=== PATIENT | male | born 1945 | race Caucasian/White ===

== ENCOUNTER 2020-04-20 14:52 | Outpatient (REF) | payer MEDICARE, SELFPAY ==
--- NOTE | 2020-04-20 | US_ITS ---
EXAMINATION: US VENOUS ULTRASOUND WITH DOPPLER LOWER EXTREMITY, RIGHT CLINICAL INFORMATION: Pain and swelling COMPARISON: Previous exams most recent July 2019 TECHNIQUE: Ultrasound of the deep veins is performed from the hip to the calf with compression sonography and color and pulse Doppler assessment. Spectral analysis with color-flow imaging is performed. FINDINGS: There is normal venous compression and respiratory variation and augmented flow. The visualized common femoral vein, superficial femoral vein, profunda femoral vein, popliteal vein, and the trifurcation region shows no evidence of deep venous thrombosis. There is echogenic material seen in the right greater saphenous vein post venaseal procedure. This is 8 cm from the saphenofemoral junction. There is a small 1.1 x 0.6 x 1.4 cm popliteal fossa cyst IMPRESSION: No DVT demonstrated in the right lower extremity.
== END 2020-04-20 14:53 | disposition home or self-care (01) ==
LOC: HO.US 14:52
PROVIDERS: Visit Provider Surgery Vascular Surgery
DX: M79.661 Pain in right lower leg (principal)
CPT/HCPCS: 93971

== ENCOUNTER → 2020-04-21 13:30 | Outpatient (BNVA) | payer MEDICARE, SELFPAY | PROVIDERS: PCP Internal Medicine; Visit Provider Surgery Vascular Surgery | DX: L03.115 Cellulitis of right lower limb (principal) | CPT/HCPCS: 99213 ==

== ENCOUNTER 2020-05-11 06:20 | Day surgery (SDC) | payer MEDICARE, SELFPAY ==
[2020-05-06 09:11] VITALS: BMI 36.3
--- NOTE | 2020-05-06 15:26 | P.CONAN_ITS ---
Documented by User: Rachelle Coughlin 05/06/20 15:30 HPI - Anesthesia Eval Consult details Narrative: 74yo M for Colonoscopy Eliquis for afib PMFSH Past Medical History Medical History Arrhythmia BPH (benign prostatic hyperplasia) Diabetes Elevated cholesterol Hypertension Hypogonadism Retention of fluid Surgical History Surgical History Deviated septum H/O colonoscopy History of hydrocelectomy History of left knee replacement Hx of cardiac catheterization Hx of transurethral resection of prostate Social History Social History Smoking Status: Never smoker Advance Directives Information Provided: No Meds Allergies Allergy/AdvReac Type Severity Reaction Status Date / Time cephalexin [Keflex] Allergy Intermediate hives Verified 05/06/20 09:18 levofloxacin Allergy Intermediate Hives Verified 05/06/20 09:18 [facility] AdvReac Intermediate Fatigued Verified 05/06/20 09:18 Home Medications Medication Instructions Recorded Confirmed Type apixaban 5 mg tablet 5 mg PO BID 04/21/20 05/06/20 History furosemide 40 mg tablet 40 mg PO DAILY 04/21/20 05/06/20 History lisinopril 20 mg tablet 20 mg PO DAILY 04/21/20 05/06/20 History metformin 1,000 mg tablet 1,000 mg PO BID 04/21/20 05/06/20 History metoprolol tartrate 25 mg tablet 25 mg PO BID 04/21/20 05/06/20 History tamsulosin 0.4 mg capsule 0.4 mg PO DAILY 04/21/20 05/06/20 History canagliflozin [Invokana] 100 mg PO DAILY 05/06/20 05/06/20 History simvastatin 20 mg PO BEDTIME 05/06/20 05/06/20 History Exam Exam Date and Time: May 06, 2020 1526 Height,Weight and Vital Signs: Height 5 ft 10 in Weight 114.759 kg Pertinent Lab Results Pertinent Lab Results: Laboratory Tests 03/23/20 03/23/20 08:38 08:38 WBC 8.2 Hgb 13.3 L Hct 41.1 L Plt Count 135 L Sodium 139 Potassium 4.6 Chloride 106 BUN 18 H Creatinine 1.04 Narrative Narrative: EKG 12/2019: afib @ 83, otherwise unremarkable Echo: Low nml EF 50-55%, no signif valve path, otherwise unremarkable Assessment and Plan Assessment Anesthesia Assessment: Chart Reviewed Documented by User: Heladio Guerra 05/11/20 07:37 [facility] Past Medical History Medical History Arrhythmia BPH (benign prostatic hyperplasia) Diabetes Elevated cholesterol Hypertension Hypogonadism Retention of fluid Surgical History Surgical History Deviated septum H/O colonoscopy History of hydrocelectomy History of left knee replacement Hx of cardiac catheterization Hx of transurethral resection of prostate Social History Social History Smoking Status: Never smoker Advance Directives Information Provided: No Meds Allergies Allergy/AdvReac Type Severity Reaction Status Date / Time cephalexin [Keflex] Allergy Intermediate hives Verified 05/06/20 09:18 levofloxacin Allergy Intermediate Hives Verified 05/06/20 09:18 cetirizine [From [facility]] AdvReac Intermediate Fatigued Verified 05/06/20 09:18 Home Medications Medication Instructions Recorded Confirmed Type apixaban 5 mg tablet 5 mg PO BID 04/21/20 05/06/20 History furosemide 40 mg tablet 40 mg PO DAILY 04/21/20 05/06/20 History lisinopril 20 mg tablet 20 mg PO DAILY 04/21/20 05/06/20 History metformin 1,000 mg tablet 1,000 mg PO BID 04/21/20 05/06/20 History metoprolol tartrate 25 mg tablet 25 mg PO BID 04/21/20 05/06/20 History tamsulosin 0.4 mg capsule 0.4 mg PO DAILY 04/21/20 05/06/20 History canagliflozin [Invokana] 100 mg PO DAILY 05/06/20 05/06/20 History simvastatin 20 mg PO BEDTIME 05/06/20 05/06/20 History Exam Airway Mallampati Class: II TM Dist: >3cm Neck ROM: Full Partial: Upper and Lower Heart: [id number] Lungs: cta b/l Assessment and Plan Assessment Anesthesia Assessment: Anesthesia Plan Discussed, PAT Visit and Chart Reviewed Final Anesthetic Review NPO: Yes ASA Class: III Final Preanesthetic Review: No Changes in Pt Med Stat, Meds/Allgs Chart Reviewed, Consent Obtained/Reviewed and Anes Risks/Benef Reviewed Patient Risk: Low Procedure Risk: Low Anesthetic Plan Anesthetic Plan: MAC: Disposition: Standard PACU
[2020-05-11 06:51] VITALS: BP 146/79; PULSE 99; RESP 18; TEMP 36.3; O2SAT 97
[2020-05-11 06:57] LABS: Glucose, Whole Blood 120 mg/dL (60-115)
[2020-05-11] MEDS: Lactated Ringers 1,000 ML 100 ML IVCONT (07:05)
[2020-05-11 08:52] VITALS: BP 133/69; PULSE 93; RESP 20; TEMP 36.1; O2SAT 99
--- NOTE | 2020-05-11 08:53 | PM.OP ---
Brief Operative Note Date of procedure: 05/11/20 Pre-op diagnosis: Screening Post-op diagnosis: other (Colon polyps, Diverticulosis, Poor prep) Procedure: Colonoscopy to cecum with bx and removal of polyp, snare polypectomy, and placement of 2 resolution clips on ascending colon polypectomy site Surgeon: Isma Yepez Anesthesia: MAC Estimated blood loss (mL): 3.0 Pathology: other (A. Cecal polyp B. Proximal ascending colon polyp) Condition: stable Disposition: PACU
[2020-05-11 09:06] VITALS: BP 143/79; PULSE 90; RESP 18; O2SAT 97
[2020-05-11 09:19] VITALS: BP 153/88; PULSE 78; RESP 18; O2SAT 97
--- NOTE | 2020-05-11 09:22 | OP_ITS ---
SURGEON: Isma Yepez MD INDICATIONS: Full consent has been obtained from him for this, including risks of bleeding and perforation. PREOPERATIVE DIAGNOSIS: POSTOPERATIVE DIAGNOSIS: PROCEDURE PERFORMED: ESTIMATED BLOOD LOSS: COMPLICATIONS: ANESTHESIA: Medication used, monitored anesthesia care. ASSISTANTS: SPECIMENS: PREOPERATIVE DIAGNOSES: Colorectal cancer screening and personal history of tubular adenoma of the colon. POSTOPERATIVE DIAGNOSES: Colorectal cancer screening and personal history of tubular adenoma of the colon. colon polyp, sigmoid diverticulosis, internal hemorrhoids. PROCEDURES PERFORMED: Colonoscopy to the cecum with snare polypectomy, biopsy removal of polyp, and placement of 2 resolution clips. DESCRIPTION OF PROCEDURE: The patient was placed in the left lateral decubitus position. The digital rectal exam revealed no abnormalities. The Squee video pediatric colonoscope was entered into the rectum and advanced to the cecum. Advancement to the cecum was difficult due to a relatively poor prep as well as requiring abdominal wall pressure. However, once in the cecum, I was able to irrigate and suction with ultimately good visualization of the cecum. There was a small approximately 3-mm polyp in the cecum, which was biopsied and completely removed with cold biopsy forceps. The remainder of the cecum appeared normal. The scope was then slowly withdrawn assessing all mucosal surfaces carefully. Preparation throughout the colon was limited in various spots due to a lot of liquid and solid stool. However, in the very proximal ascending colon on a fold was an approximately 1.5 cm polyp, which was snared in piecemeal fashion. The entire polyp was removed. The polypectomy site appeared clean, without any sign of residual polyp nor bleeding, I did place 2 resolution clips on the polypectomy site due to the fact that he has to go back on his Eliquis. There was good deployment and good hemostasis. The 2 portions of the polyp I removed were visualized in the cecum, one was recovered with the retrieval net and the other one was not able to be found again. There was a fair amount of liquid stool in the cecum at that point. With the polyp in the retrieval net, the scope was then slowly withdrawn assessing all mucosal surfaces as carefully as possible, although again this was limited due to the prep. I did not visualize any other polyps, colitis, nor angiodysplasia, but there is a mild amount of sigmoid diverticulosis. In the rectum, scope was retroflexed visualizing minimal internal hemorrhoids, but no other pathology. The rectal mucosa appeared normal. The scope was straightened out and withdrawn from the patient. He tolerated the procedure well and was returned to the recovery area in stable condition. IMPRESSION: 1. Small cecal polyp, status post biopsy and removal. 2. Larger ascending colon polyp, status post snare polypectomy and placement of 2 resolution clips. 3. Diverticulosis. 4. Limited prep. PLAN: The results of the pathology will be checked. I would recommend a repeat colonoscopy within 1 year with a 2-day prep. He was advised to resume his Eliquis tomorrow and to not use any aspirin and NSAIDs for least 1 week. This has been discussed with his . MD KENYATTA Ramirez/NICO / [id number]
--- NOTE | 2020-05-11 09:27 | HO.POSTANES ---
Post Anesthesia Evaluation Post Anesthesia Evaluation Vital Signs: Vital Signs Temp Pulse Resp BP Pulse Ox 05/11/20 09:19 78 18 153/88 H 97 05/11/20 09:06 90 18 143/79 H 97 05/11/20 08:52 96.9 F 93 20 133/69 99 05/11/20 06:51 97.4 F 99 18 146/79 H 97 Anesthesia: Monitored Mental Status: Awake Pain Control: Satisfactory Nausea/Vomiting: None Hydration: Adequate Anesthesia-Related Issues: No Anes. Related Issues
== END 2020-05-11 09:53 | disposition home or self-care (01) ==
PROVIDERS: PCP Internal Medicine; Visit Provider Internal Medicine
PROC: 0DJD8ZZ Inspection of Lower Intestinal Tract, Via Natural or Artificial Opening Endoscopic (ICD-10-PCS; CPT 45378; principal; 2020-05-11 07:30)
DX: Z12.11 Encounter for screening for malignant neoplasm of colon (principal); Z86.010 Personal history of colon polyps; Z80.0 Family history of malignant neoplasm of digestive organs; D12.0 Benign neoplasm of cecum; D12.2 Benign neoplasm of ascending colon; K57.30 Diverticulosis of large intestine without perforation or abscess without bleeding; K64.8 Other hemorrhoids; I48.91 Unspecified atrial fibrillation; I10 Essential (primary) hypertension; E11.9 Type 2 diabetes mellitus without complications; Z79.84 Long term (current) use of oral hypoglycemic drugs; Z79.01 Long term (current) use of anticoagulants; Z79.82 Long term (current) use of aspirin; Z79.899 Other long term (current) drug therapy; Z96.652 Presence of left artificial knee joint
CPT/HCPCS: 45385; 45380; 82947; 88305

== ENCOUNTER → 2020-05-12 15:10 | Outpatient (BNVA) | payer MEDICARE, SELFPAY | PROVIDERS: PCP Internal Medicine; Visit Provider Surgery Vascular Surgery | DX: L03.115 Cellulitis of right lower limb (principal) | CPT/HCPCS: 99212 ==

== ENCOUNTER → 2020-06-11 12:42 | Outpatient (BNVA) | payer MEDICARE, SELFPAY | PROVIDERS: PCP Internal Medicine; Referring Provider Internal Medicine; Visit Provider Internal Medicine | DX: I48.19 Other persistent atrial fibrillation (principal); I10 Essential (primary) hypertension; E11.8 Type 2 diabetes mellitus with unspecified complications; Z98.890 Other specified postprocedural states | CPT/HCPCS: 99212 ==

== ENCOUNTER 2020-06-22 07:55 | Outpatient (REF) | payer MEDICARE, SELFPAY ==
[2020-06-22 08:41] LABS: Estimated Average Glucose 128 mg/dL; Hemoglobin A1C 149.0681 umol/L; Hemoglobin A1c % 6.1 %
[2020-06-22 08:46] LABS: Hematocrit 41.3 % (42-52); Hemoglobin 13.6 g/dl (14.0-18.0); Mean Corpuscular HGB Conc 32.9 g/dl (31.0-36.0); Mean Corpuscular Hemoglobin 29.8 pg (27.0-33.0); Mean Corpuscular Volume 90.6 fL (80-98); Platelet Count 123 X10*3/uL (160-400); Red Blood Count 4.56 X10*6/uL (4.60-5.80); White Blood Count 6.9 X10*3/uL (4.8-10.8)
[2020-06-22 08:55] LABS: Alanine Aminotransferase 21 U/L (0-40); Anion Gap 13 (12-20); Aspartate Amino Transferase 16 U/L (5-37); Blood Urea Nitrogen 19 mg/dL (9-16); Calcium 8.8 mg/dL (8.4-10.2); Carbon Dioxide 24 mmol/L (22-29); Chloride 105 mmol/L (96-108); Cholesterol 116 mg/dL; Estimated Glomerular Filt Rate 58; Glucose Fasting 131 mg/dL (60-99); HDL Cholesterol 25 mg/dL; Iron 112 mcg/dL (45-160); LDL Cholesterol Calculated 74 mg/dl; Percent Iron Saturation 45 % (15-50); Potassium 4.3 mmol/l (3.3-5.1); Sodium 138 mmol/L (135-145); Total Iron Binding Capacity 247 mcg/dL (228-428); Triglycerides 87 mg/dL; Unsaturated Iron Binding 135 ug/dL
[2020-06-22 09:15] LABS: Ferritin 125 ng/mL (20-250)
== END 2020-06-22 07:56 | disposition home or self-care (01) ==
LOC: HO.LAB 07:55
PROVIDERS: Visit Provider Internal Medicine
DX: E11.9 Type 2 diabetes mellitus without complications (principal); I10 Essential (primary) hypertension; E78.5 Hyperlipidemia, unspecified; I48.91 Unspecified atrial fibrillation; D50.9 Iron deficiency anemia, unspecified
CPT/HCPCS: 36415; 80048; 80061; 82728; 83036; 83540; 84450; 84460; 85027

== ENCOUNTER 2020-10-05 07:48 | Outpatient (REF) | payer MEDICARE, SELFPAY ==
[2020-10-05 11:47] LABS: Hemoglobin 13.7 g/dl (14.0-18.0); Imm Gran Abs Auto 0.04 X10*3/uL (0.00-0.03); Imm Gran Pct Auto 0.5 % (0.0-0.4); MANUAL DIFF FLAG SCAN; SCAN SMEAR FLAG 1
[2020-10-05 11:50] LABS: Basophils Percent Auto 0.4 % (0-2); Eosinophils Absolute Auto 0.2 X10*3/uL (0.0-0.4); Hematocrit 43.3 % (42-52); Lymphocytes Absolute Auto 1.5 X10*3/uL (1.2-4.9); Lymphocytes Percent Auto 18.4 % (20-40); Mean Corpuscular HGB Conc 31.6 g/dl (31.0-36.0); Mean Corpuscular Hemoglobin 28.5 pg (27.0-33.0); Monocytes Absolute Auto 0.6 X10*3/uL (0.1-1.2); Neutrophils Absolute Auto 5.7 X10*3/uL (2.0-8.3); Neutrophils Percent Auto 70.7 % (45-73); Platelet Count 141 X10*3/uL (160-400); Red Blood Count 4.81 X10*6/uL (4.60-5.80); Red Cell Distribution Width 19.1 % (11.0-16.0); White Blood Count 8.1 X10*3/uL (4.8-10.8)
[2020-10-05 11:54] LABS: PLT ABN DIST 1
[2020-10-05 12:26] LABS: Alanine Aminotransferase 31 U/L (0-40); Albumin Level 3.9 g/dL (3.5-5.0); Alkaline Phosphatase 62 U/L (39-117); Anion Gap 15 (12-20); Aspartate Amino Transferase 15 U/L (5-37); Bilirubin Total 0.6 mg/dL (0.0-1.0); Blood Urea Nitrogen 18 mg/dL (9-16); Calcium 8.8 mg/dL (8.4-10.2); Carbon Dioxide 22 mmol/L (22-29); Chloride 107 mmol/L (96-108); Cholesterol 118 mg/dL; Estimated Glomerular Filt Rate > 60; Glucose Fasting 151 mg/dL (60-99); HDL Cholesterol 30 mg/dL; Iron 100 mcg/dL (45-160); LDL Cholesterol Calculated 68 mg/dl; Percent Iron Saturation 41 % (15-50); Potassium 4.6 mmol/L (3.3-5.1); Sodium 139 mmol/L (135-145); Total Iron Binding Capacity 244 mcg/dL (228-428); Total Protein 6.1 g/dL (6.5-8.0); Triglycerides 102 mg/dL; Unsaturated Iron Binding 144 ug/dL
[2020-10-05 12:30] LABS: Estimated Average Glucose 134 mg/dL; Hemoglobin A1c % 6.3 %
[2020-10-05 12:38] LABS: Creatinine Urine 121.42 mg/dL; Microalbum/Creatinine Ratio Ur 4.9 ug/mg cr
[2020-10-05 13:15] LABS: Ferritin 150 ng/mL (20-250)
== END 2020-10-05 07:49 | disposition home or self-care (01) ==
LOC: HO.HMGCLDS 07:48
PROVIDERS: PCP Internal Medicine; Visit Provider Internal Medicine
DX: E11.8 Type 2 diabetes mellitus with unspecified complications (principal); E78.5 Hyperlipidemia, unspecified; I10 Essential (primary) hypertension; I48.19 Other persistent atrial fibrillation
CPT/HCPCS: 36415; 80053; 80061; 82043; 82728; 83036; 83540; 85025

== ENCOUNTER → 2020-12-04 09:05 | Outpatient (REF) | payer MEDICARE, SELFPAY ==
--- NOTE | 2020-12-04 09:08 | ECG_ITS ---
Hook-up date: 2020-12-04 10:41:00 Duration: 47:59:00 Test Indications: PAF Medications: [id number] QRS complexes 306 Ventricular ectopics which represent <1 % of total QRS comp. * Supraventricular ectopics which represent % of total QRS comp. * Paced QRS complexs which represent % of total QRS comp. VENTRICULAR ECTOPY 306 Isolated 0 Bigeminal Cycles 0 Couplets 0 Runs 0 Beats in Runs * Beats LONGEST at * BPM at :: -- * Beats FASTEST at * BPM at :: -- SUPRAVENTRICULAR ECTOPY * Isolated * Couplets * Runs * Beats in Runs * Beats LONGEST at * BPM at :: -- * Beats FASTEST at * BPM at :: -- HEART RATES 47 MIN at 00:11:07 2020-12-05 87 AVG 160 MAX at 07:59:45 2020-12-05 LONGEST RR 2.1440 secs at 04:25:06 2020-12-05 S-T LEVELS Channel 1 - 128 mm at 10:41:00 2020-12-04 - 128 mm at 10:41:00 2020-12-04 Channel 2 - 128 mm at 10:41:00 2020-12-04 - 128 mm at 10:41:00 2020-12-04 Channel 3 - 128 mm at 03:00:01 -- - 128 mm at 03:00:01 Underlying rhythm atrial fibrillation; Average rate 87/min; range 47-160/min; About 16% of the time, rate>100/min; Rare PVCs; Overall, reasonable rate control but with tendency for tachycardia; Patient did not report any symptoms in the diary Referred By: Brittany Rebolledo Overread By: BRITTANY REBOLLEDO
--- NOTE | 2020-12-04 09:08 | CA_ITS ---
Transthoracic Echocardiogram Patient (Last, First, Middle): Alireza Gabriel M Gender: Male Date of : 1945 Age: 75 Procedure Date: 12/04/2020 Procedure Type: Transthoracic Echocardiogram Location: OP Height: 180.34 cm Weight: 114.31 kg BSA: 2.33 m2 Heart Rate: bpm BP: 136 / 72 mmHg Livestock Inspector: MACKENZIE Referring MD: Delano Keller MD Symptoms: I48.19 - Other persistent atrial fibrillation Study Quality: Fair/contrast Conclusions: - Normal left ventricular size and systolic function. - The visually estimated ejection fraction is between 55-60%. - Diastolic function is indeterminate on the basis of available data. - The left atrium is mildly dilated. - There is mild thickening of the aortic valve. Findings Procedure Information Contrast agent, definity, is being given per protocol without apparent complications. Left Ventricle Normal left ventricular size and systolic function. There is mildly increased left ventricular wall thickness. The visually estimated ejection fraction is between 55-60%. There is no evidence of regional wall motion abnormalities. Diastolic function is indeterminate on the basis of available data. Right Ventricle Normal right ventricular cavity size and systolic function. Atria The left atrium is mildly dilated. The right atrium is normal in size. Aortic Valve There is a normal trileaflet aortic valve. There is mild thickening of the aortic valve. There is no aortic valve stenosis. There is no aortic valve regurgitation. Mitral Valve Normal mitral valve structure and function. There is trace mitral valve regurgitation. There is no mitral valve stenosis. Pulmonic Valve Normal pulmonic valve structure and function. There is trace pulmonic valve regurgitation. Tricuspid Valve Normal tricuspid valve structure and function. There is trace tricuspid valve regurgitation. Normal right atrial pressure. There is no evidence of pulmonary hypertension. Great Vessels There is mild dilatation of the ascending aorta. Venous The inferior vena cava is normal in size and collapses greater than 50% with inspiration. Pericardium/Pleural There is no evidence of pericardial effusion. Prior Study Comparison Changes noted compared to prior study dated: 03/07/2019. EF is normal (55 60%) Measurements 2D Linear Measurements IVSd: 1.11 0.6-0.9/0.6-1.0 cm LVIDd: 4.88 3.9-5.3/4.2-5.9 cm LVIDd Index: 2.09 2.4-3.2/2.2-3.1 cm/m2 LVIDs: 3.11 2.0-3.6 cm LVPWd: 1.09 0.7-1.1 cm Ao Root: 3.60 2.1-3.5 cm LA Diam: 4.30 2.7-3.8/3.0-4.0 cm LAIDs Index: 1.85 1.5-2.3 cm/m2 LV Mass: 248.23 67-162/88-224 g LV Mass Index: 106.54 43-95/49-115 g/m2 LVOT Diam: 2.60 3.0+(-)1.3 cm 2D Systolic Function EF 4C: 56.40 >55% EF 2C: 54.80 >55% EF BiP: 56.70 >55% Aortic Valve AoV Pk Lance: 0.91 AoV Mn Lance: 0.60 AoV VTI: 0.16 AoV Pk Grad: 3.00 Aov Mn Grad: 2.00 ASHA Cont.VTI: 3.65 LVOT LVOT Pk Lance: 0.63 LVOT Mn Lance: 0.36 LVOT VTI: 0.11 LVOT Pk Grad: 2.00 LVOT Mn Grad: 1.00 LVOT Diam: 2.60 LVOT Area: 5.31 Tricuspid Valve TR Pk Lance: 2.00 TR Pk Grad: 16.00 RA Press: 3.00 RVSP: 19.00 Great Vessels Aorta Ao Root-2D: 3.60 2.0-3.7 cm Ao Asc: 3.60 2.1-3.4 cm Ao Arch: 3.20 Updated in Other Vendor System with Status of Final Marcin Lopez MD electronically signed on 12/06/2020 8:11:57 PM with status of Final
== END ==
LOC: HO.CARD 09:05
PROVIDERS: Visit Provider Internal Medicine
DX: I48.19 Other persistent atrial fibrillation (principal)
CPT/HCPCS: 93225; 93226; 93306; Q9957

== ENCOUNTER → 2020-12-21 08:38 | Outpatient (BNVA) | payer MEDICARE, SELFPAY | PROVIDERS: PCP Internal Medicine; Visit Provider Internal Medicine | DX: I48.19 Other persistent atrial fibrillation (principal); I10 Essential (primary) hypertension; E11.8 Type 2 diabetes mellitus with unspecified complications; Z98.890 Other specified postprocedural states | CPT/HCPCS: 93005; 99212 ==

== ENCOUNTER 2021-04-19 07:49 | Outpatient (REF) | payer MEDICARE, SELFPAY ==
[2021-04-19 11:36] LABS: Imm Gran Abs Auto 0.03 X10*3/uL (0.00-0.03); MANUAL DIFF FLAG SCAN; Monocytes Percent Auto 7.5 % (2-11); Red Cell Distribution Width 18.8 % (11.0-16.0); SCAN SMEAR FLAG 1
[2021-04-19 11:38] LABS: Basophils Percent Auto 0.3 % (0-2); Eosinophils Absolute Auto 0.3 X10*3/uL (0.0-0.4); Eosinophils Percent Auto 3.3 % (0-4); Hematocrit 41.1 % (42-52); Hemoglobin 13.4 g/dl (14.0-18.0); Imm Gran Pct Auto 0.3 % (0.0-0.4); Lymphocytes Absolute Auto 1.5 X10*3/uL (1.2-4.9); Lymphocytes Percent Auto 17.9 % (20-40); Mean Corpuscular HGB Conc 32.6 g/dl (31.0-36.0); Mean Platelet Volume 11.5 fL (9.4-12.4); Monocytes Absolute Auto 0.7 X10*3/uL (0.1-1.2); Neutrophils Absolute Auto 6.1 X10*3/uL (2.0-8.3); Neutrophils Percent Auto 70.7 % (45-73); Platelet Count 155 X10*3/uL (160-400); Red Blood Count 4.62 X10*6/uL (4.60-5.80); White Blood Count 8.6 X10*3/uL (4.8-10.8)
[2021-04-19 11:39] LABS: PLT ABN DIST 1
[2021-04-19 11:52] LABS: Estimated Average Glucose 183 mg/dL
[2021-04-19 12:07] LABS: Alanine Aminotransferase 57 U/L (0-40); Anion Gap 15 (12-20); Aspartate Amino Transferase 28 U/L (5-37); Blood Urea Nitrogen 18 mg/dL (9-16); Calcium 9.2 mg/dL (8.4-10.2); Carbon Dioxide 24 mmol/L (22-29); Chloride 105 mmol/L (96-108); Cholesterol 108 mg/dL; Estimated Glomerular Filt Rate 57; Glucose Fasting 168 mg/dL (60-99); HDL Cholesterol 28 mg/dL; LDL Cholesterol Calculated 63 mg/dl; Potassium 4.1 mmol/L (3.3-5.1); Sodium 140 mmol/L (135-145); Triglycerides 87 mg/dL
[2021-04-19 12:12] LABS: PSA,Total (Free>4and<10) 1.31 ng/mL (0.00-4.00); Vitamin D 25-OH Total 29.6 ng/mL (>30)
[2021-04-19 12:28] LABS: SLIDE REVIEW VERIFIED
== END 2021-04-19 07:50 | disposition home or self-care (01) ==
LOC: HO.HMGCLDS 07:49
PROVIDERS: PCP Internal Medicine; Visit Provider Internal Medicine
DX: Z12.5 Encounter for screening for malignant neoplasm of prostate (principal); E11.9 Type 2 diabetes mellitus without complications; E78.5 Hyperlipidemia, unspecified; I10 Essential (primary) hypertension; I48.19 Other persistent atrial fibrillation; N40.0 Benign prostatic hyperplasia without lower urinary tract symptoms; R97.20 Elevated prostate specific antigen [PSA]
CPT/HCPCS: 36415; 80048; 80061; 82306; 83036; 84153; 84450; 84460; 85025

== ENCOUNTER → 2021-06-08 08:32 | Outpatient (BNVA) | payer MEDICARE, SELFPAY | PROVIDERS: PCP Internal Medicine; Referring Provider Internal Medicine; Visit Provider Internal Medicine | DX: I48.19 Other persistent atrial fibrillation (principal); I10 Essential (primary) hypertension; E11.8 Type 2 diabetes mellitus with unspecified complications; Z98.890 Other specified postprocedural states | CPT/HCPCS: 99212 ==

== ENCOUNTER 2021-07-17 08:19 | Outpatient (REF) | payer MEDICARE, SELFPAY ==
[2021-07-17 11:16] LABS: MANUAL DIFF FLAG NO
[2021-07-17 11:23] LABS: Basophils Percent Auto 0.5 % (0-2); Eosinophils Absolute Auto 0.2 X10*3/uL (0.0-0.4); Eosinophils Percent Auto 1.8 % (0-4); Hematocrit 40.6 % (42.0-52.0); Hemoglobin 13.1 g/dl (14.0-18.0); Imm Gran Abs Auto 0.03 X10*3/uL (0.00-0.03); Imm Gran Pct Auto 0.3 % (0.0-0.4); Lymphocytes Absolute Auto 1.2 X10*3/uL (1.2-4.9); Lymphocytes Percent Auto 13.8 % (20-40); Mean Corpuscular HGB Conc 32.3 g/dl (31.0-36.0); Mean Corpuscular Hemoglobin 28.9 pg (27.0-33.0); Mean Corpuscular Volume 89.4 fL (80.0-98.0); Monocytes Absolute Auto 0.6 X10*3/uL (0.1-1.2); Monocytes Percent Auto 7.3 % (2-11); Neutrophils Absolute Auto 6.6 x10*3/uL (2.0-8.3); Neutrophils Percent Auto 76.3 % (45-73); Platelet Count 140 X10*3/uL (160-400); Red Blood Count 4.54 X10*6/uL (4.60-5.80); Red Cell Distribution Width 19.2 % (11.0-16.0); White Blood Count 8.7 X10*3/uL (4.8-10.8)
[2021-07-17 11:54] LABS: Alanine Aminotransferase 60 U/L (0-40); Anion Gap 12 (12-20); Aspartate Amino Transferase 32 U/L (5-37); Blood Urea Nitrogen 20 mg/dL (9-16); Calcium 9.3 mg/dL (8.4-10.2); Carbon Dioxide 22 mmol/L (22-29); Chloride 109 mmol/L (96-108); Cholesterol 113 mg/dL; Estimated Glomerular Filt Rate > 60; Glucose Fasting 188 mg/dL (60-99); HDL Cholesterol 31 mg/dL; Iron 114 mcg/dL (45-160); LDL Cholesterol Calculated 64 mg/dl; Percent Iron Saturation 44 % (15-50); Potassium 4.1 mmol/L (3.3-5.1); Sodium 139 mmol/L (135-145); Total Iron Binding Capacity 260 mcg/dL (228-428); Triglycerides 93 mg/dL; Unsaturated Iron Binding 146 ug/dL
[2021-07-17 11:56] LABS: Estimated Average Glucose 160 mg/dL; Hemoglobin A1c % 7.2 %
[2021-07-17 12:18] LABS: Vitamin D 25-OH Total 39.2 ng/mL (>30)
== END 2021-07-17 08:20 | disposition home or self-care (01) ==
LOC: HO.HMGCLDS 08:19
PROVIDERS: Visit Provider Internal Medicine
DX: D50.9 Iron deficiency anemia, unspecified (principal); E11.65 Type 2 diabetes mellitus with hyperglycemia; E55.9 Vitamin D deficiency, unspecified; I10 Essential (primary) hypertension
CPT/HCPCS: 36415; 80048; 80061; 82306; 83036; 83540; 84450; 84460; 85025

== ENCOUNTER → 2021-07-20 08:19 | Outpatient (REF) | payer MEDICARE, SELFPAY ==
--- NOTE | 2021-07-20 08:24 | ECG_ITS ---
Test Reason : E11.65 Blood Pressure : / mmHG Vent. Rate : 072 BPM Atrial Rate : 000 BPM P-R Int : 000 ms QRS Dur : 104 ms QT Int : 412 ms P-R-T Axes : 000 009 060 degrees QTc Int : 451 ms Atrial fibrillation Abnormal ECG When compared with ECG of 03-SEP-2015 07:25, Atrial fibrillation has replaced Sinus rhythm Referred By: Latoya Lopez Electronically Signed By:Marcin Lopez
== END ==
LOC: HO.CARD 08:19
PROVIDERS: PCP Internal Medicine; Visit Provider Internal Medicine
DX: I48.19 Other persistent atrial fibrillation (principal); I10 Essential (primary) hypertension; E11.65 Type 2 diabetes mellitus with hyperglycemia; E78.5 Hyperlipidemia, unspecified; Z98.890 Other specified postprocedural states
CPT/HCPCS: 93005

== ENCOUNTER → 2021-09-07 14:08 | Outpatient (BNVA) | payer MEDICARE, SELFPAY | PROVIDERS: PCP Internal Medicine; Visit Provider Urology | DX: E11.69 Type 2 diabetes mellitus with other specified complication (principal); N52.1 Erectile dysfunction due to diseases classified elsewhere; N40.0 Benign prostatic hyperplasia without lower urinary tract symptoms; R97.20 Elevated prostate specific antigen [PSA] | CPT/HCPCS: 51798; 99212 ==

== ENCOUNTER 2021-09-15 09:21 | Day surgery (SDC) | payer MEDICARE, SELFPAY ==
[2021-09-10 13:40] VITALS: BMI 37.7
--- NOTE | 2021-09-13 14:23 | P.CONAN_ITS ---
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 (Acute) Vitamin D deficiency (Acute) Iron (Fe) deficiency anemia (Acute) Type 2 diabetes mellitus with hyperglycemia, without long-term current use of insulin (Acute) BPH with elevated PSA (Acute) Dyslipidemia (Acute) Status post cardiac catheterization (Acute) Essential hypertension (Acute) Past Medical History Medical History Arrhythmia BPH with elevated PSA COVID-19 vaccine series completed Dyslipidemia Elevated cholesterol Essential hypertension Hypogonadism Iron (Fe) 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 Mother No problems noted. Surgical History Surgical History Deviated septum H/O colonoscopy History of hydrocelectomy History of left knee replacement Hx of cardiac catheterization Hx of transurethral resection of prostate Status post cardiac catheterization Social History Social History Housing: House Are you a primary pediatric acute care unit nurse to a significant other at home: No Do you presently have visiting nurse or other home services: No Patient Tobacco Use Status: Never used Tobacco e-Cigarette/Vaping Use: Never Used Second Hand Smoke Exposure: Yes service: No Current occupational status: retired Meds Allergies Allergy/AdvReac Type Severity Reaction Status Date / Time cephalexin [Keflex] Allergy Intermediate hives Verified 09/07/21 14:09 levofloxacin Allergy Intermediate Hives Verified 09/07/21 14:09 cetirizine [From Zyrtec] AdvReac Intermediate Fatigue Verified 09/10/21 13:39 Exam Exam Date and Time: September 13, 2021 1423 Height,Weight and Vital Signs: Height 5 ft 10 in Weight 119.295 kg Pertinent Lab Results Pertinent Lab Results: Laboratory Tests 07/17/21 07/17/21 08:23 08:23 WBC 8.7 Hgb 13.1 L Hct 40.6 L Plt Count 140 L Sodium 139 Potassium 4.1 Chloride 109 H Carbon Dioxide 22 BUN 20 H Creatinine 1.15 Narrative Narrative: EKG 07/2021 Vent. Rate : 072 BPM ? ? Atrial Rate : 000 BPM ?? P-R Int : 000 ms? QRS Dur : 104 ms ? ? QT Int : 412 ms ? ? ? P-R-T Axes : 000 009 060 degrees ?? QTc Int : 451 ms ? Atrial fibrillation Abnormal ECG When compared with ECG of 03-SEP-2015 07:25, Atrial fibrillation has replaced Sinus rhythm ECHO 12/2020 Conclusions: - Normal left ventricular size and systolic function.? - The visually estimated ejection fraction is between 55-60%.? ? - Diastolic function is indeterminate on the basis of available? data.? - The left atrium is mildly dilated. ? - There is mild thickening of the aortic valve.?? 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 Mother No problems noted. Family history of problems with anesthesia: No Surgical History Surgical History Deviated septum H/O colonoscopy History of hydrocelectomy History of left knee replacement Hx of cardiac catheterization Hx of transurethral resection of prostate Status post cardiac catheterization History of Problems with Anesthesia: No Social History Social History Housing: House Are you a primary pediatric acute care unit nurse to a significant other at home: No Do you presently have visiting nurse or other home services: No Patient Tobacco Use Status: Never used Tobacco e-Cigarette/Vaping Use: Never Used Second Hand Smoke Exposure: Yes service: No Current occupational status: retired Meds Allergies Allergy/AdvReac Type Severity Reaction Status Date / Time cephalexin [Keflex] Allergy Intermediate hives Verified 09/07/21 14:09 levofloxacin Allergy Intermediate Hives Verified 09/07/21 14:09 cetirizine [From Zyrtec] AdvReac Intermediate Fatigue Verified 09/10/21 13:39 Exam Airway Mallampati Class: III TM Dist: >3cm Neck ROM: Full Loose/Missing/Broken Teeth: Yes (upper and lower ) Heart: Irregular Lungs: distant breath sounds Assessment and Plan Assessment Anesthesia Assessment: Anesthesia Plan Discussed Final Anesthetic Review Family History of Problems with Anesthesia: No History of Problems with Anesthesia: No NPO: Yes ASA Class: III Final Preanesthetic Review: No Changes in Pt Med Stat, Meds/Allgs Chart Reviewed, Consent Obtained/Reviewed and Anes Risks/Benef Reviewed Patient Risk: Intermediate Procedure Risk: Intermediate Anesthetic Plan Anesthetic Plan: MAC: Disposition: Standard PACU
[2021-09-15 09:55] VITALS: BP 126/75; PULSE 96; RESP 18; TEMP 36.1; O2SAT 97
[2021-09-15 09:56] LABS: Glucose, Whole Blood 148 mg/dL (60-115)
[2021-09-15] MEDS: Lactated Ringers 1,000 ML 100 ML IVCONT (10:00)
--- NOTE | 2021-09-15 10:30 | P.CONAN_ITS ---
HPI - Anesthesia Eval Consult details Narrative: 76yo M for Upper Endoscopy and Colonoscopy Eliquis for afib. 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 (Acute) Vitamin D deficiency (Acute) Iron (Fe) deficiency anemia (Acute) Type 2 diabetes mellitus with hyperglycemia, without long-term current use of insulin (Acute) BPH with elevated PSA (Acute) Dyslipidemia (Acute) Status post cardiac catheterization (Acute) Essential hypertension (Acute) Past Medical History Medical History Arrhythmia BPH with elevated PSA COVID-19 vaccine series completed Dyslipidemia Elevated cholesterol Essential hypertension Hypogonadism Iron (Fe) 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 Mother No problems noted. Family history of problems with anesthesia: No Surgical History Surgical History Deviated septum H/O colonoscopy History of hydrocelectomy History of left knee replacement Hx of cardiac catheterization Hx of transurethral resection of prostate Status post cardiac catheterization History of Problems with Anesthesia: No Social History Social History Housing: House Are you a primary adult care provider to a significant other at home: No Do you presently have visiting nurse or other home services: No Patient Tobacco Use Status: Never used Tobacco e-Cigarette/Vaping Use: Never Used Second Hand Smoke Exposure: Yes Use of substances other than those prescribed or required for medical reasons: No Have you been hit, kicked, punched, or otherwise hurt by someone within the past year? If so, by whom?: No Are you DNR?: No Advance Directives: No Advance Directives Information Provided: Yes (brochure mailed) Advance Directives on File: No Recently lost weight without trying: No Eating poorly because of decreased appetite: No Nutrition Risks: No Nutritional Risk Poor oral hygiene: No (upper & lower partial denture) service: No Current occupational status: retired Meds Allergies Allergy/AdvReac Type Severity Reaction Status Date / Time cephalexin [Keflex] Allergy Intermediate hives Verified 09/07/21 14:09 levofloxacin Allergy Intermediate Hives Verified 09/07/21 14:09 cetirizine [From Zyrtec] AdvReac Intermediate Fatigue Verified 09/10/21 13:39 Active Medications: Current Medications Lactated Ringer's (Lr) 1,000 mls @ 100 mls/hr IVCONT .Q10H NANCY Last Admin: 09/15/21 10:00 Dose: 100 mls/hr Documented by: Sodium Biphosphate/Sodium Phosphate (Sodium Phosphate,Herkimer-Dibasic 133 Ml Enema) 133 ml TN ONCE PRN PRN Reason: Poor Colonoscopy Prep Results Exam Exam Date and Time: September 15, 2021 1030 Height,Weight and Vital Signs: Height 5 ft 10 in Weight 119.295 kg Last Vital Signs Temp 96.9 F 09/15/21 09:55 Pulse 96 09/15/21 09:55 Resp 18 09/15/21 09:55 BP 126/75 09/15/21 09:55 Pulse Ox 97 09/15/21 09:55 Pertinent Lab Results Pertinent Lab Results: Laboratory Tests 09/15/21 09:51 POC Glucose 148 H Airway Mallampati Class: III TM Dist: >3cm Neck ROM: Full Loose/Missing/Broken Teeth: Yes, Upper and Lower Heart: irregular Lungs: distant breath sounds Assessment and Plan Assessment Anesthesia Assessment: Anesthesia Plan Discussed and Chart Reviewed Final Anesthetic Review Family History of Problems with Anesthesia: No History of Problems with Anesthesia: No NPO: Yes ASA Class: III Final Preanesthetic Review: No Changes in Pt Med Stat, Meds/Allgs Chart Reviewed, Consent Obtained/Reviewed and Anes Risks/Benef Reviewed Patient Risk: Intermediate Procedure Risk: Intermediate Anesthetic Plan Anesthetic Plan: MAC: Disposition: Standard PACU
--- NOTE | 2021-09-15 12:00 | PM.OP ---
Brief Operative Note Date of Service: 09/15/21 Pre-op diagnosis: Anemia, Screening Post-op diagnosis: other (Mild gastritis, R/O Celiac disease, Diverticulosis) Procedure: EGD with biopsies, Colonoscopy to the cecum Surgeon: Isma Yepez Anesthesia: MAC Was an Image Processing Engineer used for this Procedure?: No Estimated blood loss (mL): 2.0 Pathology: other (A. Descending duodenum B. Gastric antrum) Condition: stable Disposition: PACU
[2021-09-15 12:05] VITALS: BP 130/69; PULSE 97; RESP 17; TEMP 36.8; O2SAT 99
[2021-09-15 12:20] VITALS: BP 111/72; PULSE 83; RESP 18; O2SAT 96
--- NOTE | 2021-09-15 12:41 | OP_ITS ---
SURGEON: Isma Yepez MD INDICATIONS: The patient presents for evaluation of personal history of tubular adenomas of the colon, colorectal cancer screening and previous iron deficiency anemia. Full consent was obtained from him for this, including risks of bleeding and perforation. PREOPERATIVE DIAGNOSIS: POSTOPERATIVE DIAGNOSIS: PROCEDURE PERFORMED: Esophagogastroduodenoscopy with biopsies, and colonoscopy to the cecum. ESTIMATED BLOOD LOSS: COMPLICATIONS: ANESTHESIA: Monitored anesthesia care. ASSISTANTS: SPECIMENS: PREOPERATIVE DIAGNOSES: History of iron deficiency anemia, personal history of tubular adenomas of the colon, and colorectal cancer screening. POSTOPERATIVE DIAGNOSES: History of iron deficiency anemia, personal history of tubular adenoma of the colon, and colorectal cancer screening, mild gastritis, rule out celiac disease, diverticulosis, internal hemorrhoids. DESCRIPTION OF PROCEDURE: The patient was placed in the left lateral decubitus position. The Olympus video gastroscope was passed in the posterior oropharynx and upper esophagus under direct vision. The scope was passed slowly into the distal esophagus. The gastroesophageal junction appeared normal at 40 cm. There was no sign of any esophagitis nor Doan's mucosa. The scope entered into the stomach. There was a minimal hiatal hernia. The scope was advanced to pylorus and the duodenum was cannulated to the descending portion. The duodenum including the bulb appeared normal without mass or ulceration. Biopsies were obtained from the 2nd and 3rd portions of duodenum. The scope was withdrawn back into the stomach. The gastric antrum had some mild areas of erythema, but no erosions or ulceration. There was good peristalsis. Biopsies were obtained. The scope was retroflexed visualizing the proximal stomach carefully, which appeared normal, without any sign of mass or ulceration. The scope was straightened and withdrawn back from the esophagus. The esophageal mucosa appeared normal. The scope was withdrawn from the patient. He was turned around for the colonoscopy. The digital rectal exam revealed no abnormalities. The Olympus video pediatric colonoscope was entered into the rectum and advanced to the cecum with the assistance of abdominal wall pressure and turning him into the supine position. Once in the cecum, I did identify normal-appearing cecal pouch with appendiceal orifice and a normal-appearing ileocecal valve. There was transillumination of light deep in the right lower quadrant. The entire cecum appeared normal. The scope was then slowly withdrawn assessing all mucosal surfaces carefully. For the most part, preparation was very good throughout the colon after his 2 day preparation. There were some small areas of liquid or semi-solid stool, which were irrigated and suctioned away. I did not visualize any sign of polyps, colitis, nor angiodysplasia. There was a moderate amount of sigmoid diverticulosis. In the rectum, scope was retroflexed visualizing some small internal hemorrhoids, but no other pathology. The rectal mucosa appeared normal. The scope was straightened and withdrawn from the patient. He tolerated both procedures well and was returned to recovery area in stable condition. IMPRESSION: 1. Minimal hiatal hernia. 2. Minimal gastritis. 3. Rule out celiac disease. 4. Diverticulosis. 5. Internal hemorrhoids. PLAN: The results of the biopsies will be checked. At this point, he is feeling well. His most recent labs from July showed hemoglobin 13.1, normal MCV, iron of 114, and iron saturation of 44%. As such, I do not think he needs any further workup in regard to the previous anemia. He was advised to resume his iron today. He was advised to resume his Eliquis by tomorrow. If things are stable, he will see me on a p.r.n. basis. I do not think he will need any further screening colonoscopies given his negative exam and his age. MD KENYATTA Ramirez/NICO / [id number] MTDD
== END 2021-09-15 12:53 | disposition home or self-care (01) ==
PROVIDERS: PCP Internal Medicine; Visit Provider Internal Medicine
PROC: (CPT 43239; principal; 2021-09-15 10:30)
DX: Z12.11 Encounter for screening for malignant neoplasm of colon (principal); Z86.010 Personal history of colon polyps; K57.30 Diverticulosis of large intestine without perforation or abscess without bleeding; K64.8 Other hemorrhoids; D50.9 Iron deficiency anemia, unspecified; K29.50 Unspecified chronic gastritis without bleeding; K44.9 Diaphragmatic hernia without obstruction or gangrene; E78.5 Hyperlipidemia, unspecified; N40.0 Benign prostatic hyperplasia without lower urinary tract symptoms; E11.9 Type 2 diabetes mellitus without complications; Z79.84 Long term (current) use of oral hypoglycemic drugs; I48.91 Unspecified atrial fibrillation; Z79.01 Long term (current) use of anticoagulants; I10 Essential (primary) hypertension; Z79.899 Other long term (current) drug therapy; Z88.1 Allergy status to other antibiotic agents; Z88.8 Allergy status to other drugs, medicaments and biological substances
CPT/HCPCS: 43239; G0105; 82947; 88305; 88342

== ENCOUNTER 2021-09-24 08:31 | Outpatient (REF) | payer MEDICARE, SELFPAY ==
[2021-09-27 21:01] LABS: Immunoglobulin A 172 mg/dL (70-320)
[2021-09-29 16:05] LABS: Endomysial IgA Antibody Negative (Negative)
[2021-10-01 17:41] LABS: Gliadin Deamidated IgA Ab <1.0 U/mL; Gliadin Deamidated IgG Ab <1.0 U/mL; Transglutaminase Ab IgG <1.0 U/mL; Transglutaminase IgA <1.0 U/mL
== END 2021-09-24 08:32 | disposition home or self-care (01) ==
LOC: HO.HMGCLDS 08:31
PROVIDERS: Visit Provider Internal Medicine
DX: K31.9 Disease of stomach and duodenum, unspecified (principal); D50.9 Iron deficiency anemia, unspecified
CPT/HCPCS: 36415; 82784; 86231; 86258; 86364

== ENCOUNTER 2021-11-09 08:24 | Outpatient (REF) | payer MEDICARE, SELFPAY ==
[2021-11-09 11:52] LABS: Basophils Percent Auto 0.5 % (0-2); Eosinophils Absolute Auto 0.2 X10*3/uL (0.0-0.4); Eosinophils Percent Auto 2.5 % (0-4); Hematocrit 40.7 % (42.0-52.0); Hemoglobin 13.1 g/dl (14.0-18.0); Imm Gran Abs Auto 0.02 X10*3/uL (0.00-0.03); Imm Gran Pct Auto 0.3 % (0.0-0.4); Lymphocytes Absolute Auto 1.3 X10*3/uL (1.2-4.9); MANUAL DIFF FLAG SCAN; Mean Corpuscular HGB Conc 32.2 g/dl (31.0-36.0); Mean Corpuscular Hemoglobin 28.7 pg (27.0-33.0); Mean Corpuscular Volume 89.3 fL (80.0-98.0); Monocytes Absolute Auto 0.7 X10*3/uL (0.1-1.2); Monocytes Percent Auto 8.5 % (2-11); Neutrophils Absolute Auto 5.6 x10*3/uL (2.0-8.3); Neutrophils Percent Auto 71.2 % (45-73); Red Blood Count 4.56 X10*6/uL (4.60-5.80); Red Cell Distribution Width 20.1 % (11.0-16.0)
[2021-11-09 11:58] LABS: Platelet Count 144 X10*3/uL (160-400); White Blood Count 7.9 X10*3/uL (4.8-10.8)
[2021-11-09 11:59] LABS: Alanine Aminotransferase 43 U/L (0-40); Anion Gap 13 (12-20); Aspartate Amino Transferase 26 U/L (5-37); Blood Urea Nitrogen 17 mg/dL (9-16); Calcium 9.4 mg/dL (8.4-10.2); Carbon Dioxide 25 mmol/L (22-29); Chloride 105 mmol/L (96-108); Cholesterol 117 mg/dL; Estimated Glomerular Filt Rate > 60; Glucose Fasting 182 mg/dL (60-99); HDL Cholesterol 30 mg/dL; LDL Cholesterol Calculated 70 mg/dl; Potassium 4.1 mmol/L (3.3-5.1); SLIDE REVIEW VERIFIED; Sodium 139 mmol/L (135-145); Triglycerides 89 mg/dL
[2021-11-09 12:03] LABS: Estimated Average Glucose 146 mg/dL; Hemoglobin A1c % 6.7 %
[2021-11-09 12:04] LABS: Creatinine Urine 43.59 mg/dL; Microalbumin Urine < 5.0 mg/L
[2021-11-09 12:07] LABS: Vitamin D 25-OH Total 40.8 ng/mL (>30)
== END 2021-11-09 08:25 | disposition home or self-care (01) ==
LOC: HO.HMGCLDS 08:24
PROVIDERS: Visit Provider Internal Medicine
DX: D50.9 Iron deficiency anemia, unspecified (principal); E55.9 Vitamin D deficiency, unspecified; E78.5 Hyperlipidemia, unspecified; I10 Essential (primary) hypertension; E11.65 Type 2 diabetes mellitus with hyperglycemia
CPT/HCPCS: 36415; 80048; 80061; 82043; 82306; 83036; 84450; 84460; 85025

== ENCOUNTER → 2021-12-01 09:11 | Outpatient (REF) | payer MEDICARE, SELFPAY ==
--- NOTE | 2021-12-01 09:14 | HM_ITS ---
Conclusion: 1. Patient was monitored for total period of 3 days 2. Baseline was atrial fibrillation with average heart of 80 beats per minute, with overall good heart rate control 3. No significant pauses or bradycardia noted 4. Total of 5087 PVCs accounting for 1.86% of total beats account for frequent PVCs 5. One 3 beat run of nonsustained VT 6. No patient reported events MTDD
--- NOTE | 2021-12-01 09:14 | CA_ITS ---
Transthoracic Echocardiogram Patient (Last, First, Middle): Alireaz Gabriel M Gender: Male Date of : 1945 Age: 76 Procedure Date: 12/01/2021 Procedure Type: Transthoracic Echocardiogram Location: OP Height: 180.34 cm Weight: 112.49 kg BSA: 2.31 m2 Heart Rate: bpm BP: 132 / 80 mmHg Geological Technical Officer: MACKENZIE Laboy MD: Delano Keller MD Process Specialist: Aquilino Ventura MD Symptoms: I48.19 - Other persistent atrial fibrillation Study Quality: Fair/contrast ECG Rhythm: Atrial Fibrillation Conclusions: - 1. Xtoh-ym-astyigdu LV systolic dysfunction with LVEF of 40-45% with elevated filling pressures 2. Mildly dilated left atrium 3. Mild mitral regurgitation 4. Normal RV systolic pressure 5. No gross pericardial effusion Findings Procedure Information Contrast agent, definity, is being given per protocol without apparent complications. Left Ventricle Normal left ventricular cavity size. There is mildly increased left ventricular wall thickness. The left ventricular systolic function is mild to moderately decreased. The visually estimated ejection fraction is between 40-45%. Diastolic function is indeterminate on the basis of available data. Elevated filling pressures. Right Ventricle Normal right ventricular cavity size. Atria The left atrium is mildly dilated. Interatrial shunt cannot be excluded. The right atrium is mildly dilated. Aortic Valve There is mild calcification of the aortic valve. There is mild thickening of the aortic valve. There is no aortic valve stenosis. There is no aortic valve regurgitation. Mitral Valve There is mild anterior and posterior mitral leaflet thickening. There is mild mitral annular calcification. There is mild mitral valve regurgitation. There is no mitral valve stenosis. Pulmonic Valve The pulmonic valve was not well visualized. Tricuspid Valve Likely normal tricuspid valve structure and function. There is mild tricuspid valve regurgitation. The right ventricular systolic pressure is normal. The right ventricular systolic pressure is 35 mmHg. Normal right atrial pressure. There is no evidence of pulmonary hypertension. Great Vessels All visible segments of the aorta are normal in size. The pulmonary artery was not well visualized. Venous The inferior vena cava is normal in size and collapses greater than 50% with inspiration. Pericardium/Pleural There is no evidence of pericardial effusion. Prior Study Comparison Changes noted compared to prior study dated: 12/04/2020. LV systolic function is reduced Measurements 2D Linear Measurements IVSd: 1.26 0.6-0.9/0.6-1.0 cm LVIDd: 5.35 3.9-5.3/4.2-5.9 cm LVIDd Index: 2.32 2.4-3.2/2.2-3.1 cm/m2 LVIDs: 4.01 2.0-3.6 cm LVPWd: 1.18 0.7-1.1 cm LA Diam: 4.60 2.7-3.8/3.0-4.0 cm LAIDs Index: 1.99 1.5-2.3 cm/m2 LV Mass: 332.38 67-162/88-224 g LV Mass Index: 143.89 43-95/49-115 g/m2 LVOT Diam: 2.50 3.0+(-)1.3 cm 2D Systolic Function EF 4C: 45.60 >55% EF 2C: 39.80 >55% EF BiP: 43.20 >55% Aortic Valve AoV Pk Lance: 1.03 AoV Mn Lance: 0.75 AoV VTI: 0.23 AoV Pk Grad: 4.00 Aov Mn Grad: 2.00 ASHA Cont.VTI: 2.23 LVOT LVOT Pk Lance: 0.48 LVOT Mn Lance: 0.30 LVOT VTI: 0.10 LVOT Pk Grad: 1.00 LVOT Mn Grad: 0.00 LVOT Diam: 2.50 LVOT Area: 4.91 Right Ventricle TAPSE (mm): 17.80 TVS' Lance: 11.10 Tricuspid Valve TR Pk Lance: 2.85 TR Pk Grad: 32.00 RA Press: 3.00 RVSP: 35.00 Great Vessels Aorta Sinus of Valsalva: 3.45 2.0-3.[address] Ridge: 3.00 1.7-3.4 cm Ao Asc: 3.70 2.1-3.4 cm Ao Arch: 2.80 Updated in Other Vendor System with Status of Final Aquilino Ventura MD electronically signed on 12/02/2021 12:51:26 PM with status of Final
== END ==
LOC: HO.CARD 09:11
PROVIDERS: PCP Internal Medicine; Visit Provider Internal Medicine
DX: I48.19 Other persistent atrial fibrillation (principal)
CPT/HCPCS: 93242; 93306; Q9957

== ENCOUNTER → 2021-12-15 08:39 | Outpatient (REF) | payer MEDICARE, SELFPAY ==
--- NOTE | ~2021-12-15 | NM_ITS ---
Lexiscan Myocardial perfusion study Indication: Atrial fibrillation, cardiomyopathy, assess for coronary disease ischemia Technique: The patient was brought in for a Lexiscan perfusion study on 12/15/2021 and was injected 0.4 mg of Lexiscan intravenously. Within a minute of this injection 40 mCi of sestamibi was given intravenously. Images were obtained using the SPECT gamma camera interlaced with the gating device. Images were obtained in supine position. Resting perfusion study was performed on 12/16/2021. Patient was administered 40 mCi of sestamibi intravenously at rest. Images were then obtained in supine position. Total DLP 138mGy-cm. Images were processed with the software and compared side to side in short axis, horizontal long axis and vertical long axis views. Findings: Raw acquisition was reviewed. The stress perfusion study showed there is diminished tracer uptake in the distal part of inferolateral wall and apex. There is slight improvement with CT attenuation correction and hence could be components of diaphragmatic attenuation artifact. The gated study shows normal LV systolic function with calculated LVEF of 49%. LV cavity is normal in size. The gated study shows normal wall thickening and contraction of segments. Resting study shows slightly decreased tracer uptake in the distal part of inferolateral wall and apex. There is no significant change with CT attenuation correction. Gating at rest reveals normal wall motion with ejection fraction at 54%. The findings are consistent with no clear reversible defects. Fixed distal inferolateral defect; fixed apical defect; however normal contractility and hence probably all artifactual. NM/NM cardiolite stress test Impression: 1. Myocardial perfusion imaging study shows no definitive evidence of any ischemia or infarction. 2. Gated LVEF is 49% during stress and 54% during rest. 3. Transient ischemic dilatation not present. EKG component of the test reported separately.
--- NOTE | 2021-12-15 08:42 | CA_ITS ---
Acquisition Time: 2021-12-15 08:43:41 Total Exercise Time: 00:02:00 Test Indications: PERSISTENT A-FIB, CARDIOMYOPATHY Medications: Protocol: LEXISCAN Max HR: 098 BPM 69% of Pred: 142 BPM Max BP: 132/066 mmHG Max Work Load: 1.0 METS Pharmacological stress test with Lexiscan injection, while sitting and kicking his legs, without anginal symptoms, with one PVC, with normotensive response to injection, with nondiagnostic EKG for ischemia. Nuclear images pending. Test reviewed with Dr Lopez. Referred By: Delano Keller Overread By: MELVINA HERNANDEZ
== END ==
LOC: HO.CARD 08:39
PROVIDERS: PCP Internal Medicine; Visit Provider Internal Medicine
DX: I42.9 Cardiomyopathy, unspecified (principal); I48.19 Other persistent atrial fibrillation
CPT/HCPCS: 78452; 93017; A9500; J0280; J2785

== ENCOUNTER → 2021-12-28 12:35 | Outpatient (BNVA) | payer MEDICARE, SELFPAY | PROVIDERS: PCP Internal Medicine; Referring Provider Internal Medicine; Visit Provider Internal Medicine | DX: I48.19 Other persistent atrial fibrillation (principal); I42.9 Cardiomyopathy, unspecified; I10 Essential (primary) hypertension; E11.8 Type 2 diabetes mellitus with unspecified complications; Z79.01 Long term (current) use of anticoagulants; Z79.84 Long term (current) use of oral hypoglycemic drugs; Z79.899 Other long term (current) drug therapy | CPT/HCPCS: 93005; 99212 ==

== ENCOUNTER → 2022-04-05 08:01 | Outpatient (REF) | payer MEDICARE, SELFPAY | LOC: HO.CARD 08:01 | PROVIDERS: PCP Internal Medicine; Visit Provider Internal Medicine | DX: Z13.89 Encounter for screening for other disorder (principal) ==

== ENCOUNTER 2022-04-18 06:33 | Outpatient (REF) | payer MEDICARE, SELFPAY ==
[2022-04-18 11:20] LABS: MANUAL DIFF FLAG NO
[2022-04-18 11:47] LABS: Basophils Absolute Auto 0.1 X10*3/uL (0.0-0.2); Basophils Percent Auto 0.7 % (0-2); Eosinophils Absolute Auto 0.2 X10*3/uL (0.0-0.4); Hematocrit 38.5 % (42.0-52.0); Hemoglobin 12.6 g/dl (14.0-18.0); Imm Gran Abs Auto 0.04 X10*3/uL (0.00-0.03); Imm Gran Pct Auto 0.5 % (0.0-0.4); Lymphocytes Absolute Auto 1.2 X10*3/uL (1.2-4.9); Lymphocytes Percent Auto 15.8 % (20-40); Mean Corpuscular HGB Conc 32.7 g/dl (31.0-36.0); Mean Corpuscular Hemoglobin 28.9 pg (27.0-33.0); Mean Corpuscular Volume 88.3 fL (80.0-98.0); Monocytes Absolute Auto 0.6 X10*3/uL (0.1-1.2); Monocytes Percent Auto 8.2 % (2-11); Neutrophils Absolute Auto 5.3 x10*3/uL (2.0-8.3); Neutrophils Percent Auto 72.8 % (45-73); Platelet Count 148 X10*3/uL (160-400); Red Blood Count 4.36 X10*6/uL (4.60-5.80); Red Cell Distribution Width 19.9 % (11.0-16.0); White Blood Count 7.3 X10*3/uL (4.8-10.8)
[2022-04-18 12:03] LABS: Estimated Average Glucose 143 mg/dL; Hemoglobin A1c % 6.6 %
[2022-04-18 12:06] LABS: Alanine Aminotransferase 34 U/L (0-40); Anion Gap 15 (12-20); Aspartate Amino Transferase 23 U/L (5-37); Blood Urea Nitrogen 15 mg/dL (9-16); Calcium 9.4 mg/dL (8.4-10.2); Carbon Dioxide 25 mmol/L (22-29); Chloride 102 mmol/L (96-108); Cholesterol 127 mg/dL; Estimated Glomerular Filt Rate > 60; Glucose Fasting 161 mg/dL (60-99); HDL Cholesterol 28 mg/dL; Iron 113 mcg/dL (45-160); LDL Cholesterol Calculated 76 mg/dl; Percent Iron Saturation 45 % (15-50); Potassium 4.3 mmol/L (3.3-5.1); Sodium 138 mmol/L (135-145); Total Iron Binding Capacity 251 mcg/dL (228-428); Triglycerides 116 mg/dL; Unsaturated Iron Binding 138 ug/dL
[2022-04-18 12:33] LABS: TSH reflex Free T4 5.12 uIU/mL (0.32-4.0); Vitamin D 25-OH Total 48.9 ng/mL (>30)
[2022-04-18 12:34] LABS: Ferritin 240 ng/mL (20-250)
[2022-04-18 13:17] LABS: Free T4 (Free Thyroxine) 0.97 ng/dL (0.71-1.85)
== END 2022-04-18 06:34 | disposition home or self-care (01) ==
LOC: HO.HMGCLDS 06:33
PROVIDERS: Absent Provider Internal Medicine; PCP Internal Medicine; Visit Provider Internal Medicine
DX: E11.65 Type 2 diabetes mellitus with hyperglycemia (principal); E55.9 Vitamin D deficiency, unspecified; E78.5 Hyperlipidemia, unspecified; I10 Essential (primary) hypertension; D50.9 Iron deficiency anemia, unspecified
CPT/HCPCS: 36415; 80048; 80061; 82306; 82728; 83036; 83540; 84439; 84443; 84450; 84460; 85025

== ENCOUNTER → 2022-05-10 12:52 | Outpatient (BNV) | payer MEDICARE, SELFPAY | PROVIDERS: PCP Internal Medicine; Referring Provider Internal Medicine; Visit Provider Internal Medicine Medical Oncology | DX: D64.9 Anemia, unspecified (principal) | CPT/HCPCS: 99204; 99213 ==

== ENCOUNTER → 2022-06-07 08:05 | Outpatient (REF) | payer MEDICARE, SELFPAY ==
--- NOTE | 2022-06-07 08:11 | CA_ITS ---
Transthoracic Echocardiogram Patient (Last, First, Middle): Alireza Gabriel M Gender: Male Date of : 1945 Age: 76 Procedure Date: 06/07/2022 Procedure Type: Transthoracic Echocardiogram Location: OP Height: 180.34 cm Weight: 112.49 kg BSA: 2.31 m2 Heart Rate: bpm BP: 120 / 68 mmHg Joinery Factory Worker: JUANCHO Referring MD: Delano Keller MD Wetland Scientist: Aquilino Ventura MD Symptoms: I42.9 - Cardiomyopathy, unspecified Study Quality: Technically Difficult, contrast used ECG Rhythm: Atrial Fibrillation Conclusions: - 1. Low normal LV systolic function with LVEF of 50-55% 2. Moderately dilated left atrium 3. Normal cardiac valvular Doppler 4. Normal RV systolic pressure 5. Mildly dilated ascending aorta at 3.8 cm 6. No gross pericardial effusion Findings Procedure Information Contrast agent, definity, is being given per protocol without apparent complications. Left Ventricle Normal left ventricular cavity size. There is mildly increased left ventricular wall thickness. The left ventricular systolic function is low normal. The visually estimated ejection fraction is between 50-55%. Diastolic function is indeterminate on the basis of available data. Right Ventricle Normal right ventricular cavity size. There is mildly decreased right ventricular systolic function. Atria The left atrium is moderately dilated. Interatrial shunt cannot be excluded. The right atrium is mildly dilated. Aortic Valve The aortic valve was not well visualized. There is mild calcification of the aortic valve. There is no aortic valve stenosis. There is no aortic valve regurgitation. Mitral Valve There is mild anterior and posterior mitral leaflet thickening. There is trace mitral valve regurgitation. There is no mitral valve stenosis. Pulmonic Valve The pulmonic valve was not well visualized. Tricuspid Valve Likely normal tricuspid valve structure and function. There is mild tricuspid valve regurgitation. The right ventricular systolic pressure is normal. The right ventricular systolic pressure is 28 mmHg. Normal right atrial pressure. There is no evidence of pulmonary hypertension. Great Vessels The pulmonary artery was not well visualized. There is mild dilatation of the ascending aorta. Venous The inferior vena cava is normal in size and collapses greater than 50% with inspiration. Pericardium/Pleural There is no evidence of pericardial effusion. Prior Study Comparison Changes noted compared to prior study dated: 12/01/2021. LV systolic function has improved marginally. delayed reporting due to technical issues with vendor reporting Measurements 2D Linear Measurements IVSd: 1.24 0.6-0.9/0.6-1.0 cm LVIDd: 5.11 3.9-5.3/4.2-5.9 cm LVIDd Index: 2.21 2.4-3.2/2.2-3.1 cm/m2 LVIDs: 3.69 2.0-3.6 cm LVPWd: 1.16 0.7-1.1 cm LA Diam: 4.40 2.7-3.8/3.0-4.0 cm LAIDs Index: 1.90 1.5-2.3 cm/m2 LV Mass: 301.74 67-162/88-224 g LV Mass Index: 130.62 43-95/49-115 g/m2 LVOT Diam: 2.50 3.0+(-)1.3 cm 2D Systolic Function EF 4C: 52.00 >55% EF 2C: 50.50 >55% EF BiP: 52.80 >55% Mitral Valve MV Pk E: 0.88 MV Decel Time: 205.00 E'Lateral: 9.59 E'Medial: 6.55 E/E' Med: 13.50 E/E' Lat: 9.20 PHT: 60.00 MVA PHT: 3.67 Decel [place]: 4.34 Aortic Valve AoV Pk Lance: 1.25 AoV Mn Lance: 0.85 AoV VTI: 0.28 AoV Pk Grad: 6.00 Aov Mn Grad: 3.00 ASHA Cont.VTI: 2.96 LVOT LVOT Pk Lance: 0.73 LVOT Mn Lance: 0.49 LVOT VTI: 0.17 LVOT Pk Grad: 2.00 LVOT Mn Grad: 1.00 LVOT Diam: 2.50 LVOT Area: 4.91 Diastolic Function MV Pk E: 0.88 E'Medial: 6.55 E/E' Med: 13.50 E' Laterial: 9.59 E/E' Lat: 9.20 Right Ventricle TAPSE (mm): 16.20 TVS' Lance: 11.90 Tricuspid Valve TR Pk Lance: 2.50 TR Pk Grad: 25.00 RA Press: 3.00 RVSP: 28.00 Great Vessels Aorta Sinus of Valsalva: 3.84 2.0-3.[address] Ridge: 2.94 1.7-3.4 cm Ao Asc: 3.80 2.1-3.4 cm Updated in Other Vendor System with Status of Final Aquilino Ventura MD electronically signed on 06/10/2022 3:57:06 PM with status of Final
--- NOTE | 2022-06-07 08:11 | HM_ITS ---
Conclusion: 1. Patient was monitored for total period of 2 days and 21 hours 2. Baseline was atrial fibrillation with average heart rate of 83 beats per minute with adequate rate control 3. No significant pauses noted 4. Total of 6851 PVCs accounting for 4.1% of total beats account for frequent PVCs 5. Seven 3 beat salvos of nonsustained VT, fastest at 147 beats per minute 6. No patient reported events MTDD
== END ==
LOC: HO.CARD 08:05
PROVIDERS: PCP Internal Medicine; Visit Provider Internal Medicine
DX: I42.9 Cardiomyopathy, unspecified (principal); I48.19 Other persistent atrial fibrillation
CPT/HCPCS: 93242; 93306; Q9957

== ENCOUNTER → 2022-06-29 09:20 | Outpatient (BNVA) | payer MEDICARE, SELFPAY | PROVIDERS: PCP Internal Medicine; Referring Provider Internal Medicine; Visit Provider Internal Medicine | DX: N40.0 Benign prostatic hyperplasia without lower urinary tract symptoms (principal); I48.19 Other persistent atrial fibrillation; I42.9 Cardiomyopathy, unspecified; I10 Essential (primary) hypertension; E11.9 Type 2 diabetes mellitus without complications; Z79.01 Long term (current) use of anticoagulants; Z79.84 Long term (current) use of oral hypoglycemic drugs; Z79.899 Other long term (current) drug therapy | CPT/HCPCS: 99212 ==

== ENCOUNTER 2022-06-30 07:48 | Outpatient (REF) | payer MEDICARE, SELFPAY ==
[2022-06-30 12:18] LABS: PSA,Total (Free>4and<10) 1.34 ng/mL (0.00-4.00)
== END 2022-06-30 07:49 | disposition home or self-care (01) ==
LOC: HO.HMGCLDS 07:48
PROVIDERS: PCP Internal Medicine; Visit Provider Nurse Practitioner Family
DX: Z12.5 Encounter for screening for malignant neoplasm of prostate (principal); N40.0 Benign prostatic hyperplasia without lower urinary tract symptoms
CPT/HCPCS: 36415; 84153

== ENCOUNTER 2022-09-24 08:17 | Outpatient (REF) | payer MEDICARE, SELFPAY ==
[2022-09-24 11:35] LABS: Estimated Average Glucose 128 mg/dL; Hemoglobin A1c % 6.1 %
[2022-09-24 11:38] LABS: Cholesterol 115 mg/dL; HDL Cholesterol 32 mg/dL; LDL Cholesterol Calculated 71 mg/dl; Triglycerides 62 mg/dL
[2022-09-24 11:55] LABS: Vitamin D 25-OH Total 46.3 ng/mL (>30)
[2022-09-24 14:16] LABS: Creatinine Urine 107.76 mg/dL; Microalbum/Creatinine Ratio Ur 5.5 ug/mg cr
== END 2022-09-24 08:18 | disposition home or self-care (01) ==
LOC: HO.HMGCLDS 08:17
PROVIDERS: PCP Internal Medicine; Visit Provider Internal Medicine
DX: E11.9 Type 2 diabetes mellitus without complications (principal); E55.9 Vitamin D deficiency, unspecified; I10 Essential (primary) hypertension; E78.5 Hyperlipidemia, unspecified
CPT/HCPCS: 36415; 80061; 82043; 82306; 83036

== ENCOUNTER 2022-11-05 06:48 | Outpatient (REF) | payer MEDICARE, SELFPAY ==
[2022-11-05 11:12] LABS: MANUAL DIFF FLAG NO
[2022-11-05 11:33] LABS: Basophils Percent Auto 0.6 % (0-2); Eosinophils Absolute Auto 0.3 X10*3/uL (0.0-0.4); Eosinophils Percent Auto 4.7 % (0-4); Hemoglobin 11.8 g/dl (14.0-18.0); Imm Gran Abs Auto 0.02 X10*3/uL (0.00-0.03); Imm Gran Pct Auto 0.3 % (0.0-0.4); Lymphocytes Absolute Auto 1.1 X10*3/uL (1.2-4.9); Lymphocytes Percent Auto 17.9 % (20-40); Mean Corpuscular HGB Conc 31.9 g/dl (31.0-36.0); Mean Corpuscular Volume 87.9 fL (80.0-98.0); Monocytes Absolute Auto 0.5 X10*3/uL (0.1-1.2); Monocytes Percent Auto 8.1 % (2-11); Neutrophils Absolute Auto 4.2 x10*3/uL (2.0-8.3); Neutrophils Percent Auto 68.4 % (45-73); Platelet Count 144 X10*3/uL (160-400); Red Blood Count 4.21 X10*6/uL (4.60-5.80); Red Cell Distribution Width 20.7 % (11.0-16.0); White Blood Count 6.2 X10*3/uL (4.8-10.8)
[2022-11-05 11:39] LABS: Alanine Aminotransferase 25 U/L (0-40); Albumin Level 3.6 g/dL (3.5-5.0); Alkaline Phosphatase 59 U/L (39-117); Anion Gap 13 (12-20); Aspartate Amino Transferase 16 U/L (5-37); Bilirubin Total 0.7 mg/dL (0.0-1.0); Blood Urea Nitrogen 16 mg/dL (9-16); Calcium 9.2 mg/dL (8.4-10.2); Carbon Dioxide 25 mmol/L (22-29); Chloride 105 mmol/L (96-108); Estimated Glomerular Filt Rate > 60; Glucose Random 150 mg/dL (60-115); Potassium 4.3 mmol/L (3.3-5.1); Sodium 139 mmol/L (135-145); Total Protein 5.6 g/dL (6.5-8.0)
== END 2022-11-05 06:49 | disposition home or self-care (01) ==
LOC: HO.HMGCLDS 06:48
PROVIDERS: PCP Internal Medicine; Visit Provider Internal Medicine Medical Oncology
DX: D64.9 Anemia, unspecified (principal)
CPT/HCPCS: 36415; 80053; 85025

== ENCOUNTER 2022-12-15 10:19 | Outpatient (REF) | payer MEDICARE, SELFPAY ==
--- NOTE | ~2022-12-15 | US_ITS ---
EXAMINATION: US RETROPERITONEAL COMPLETE (RENAL) CLINICAL INFORMATION: Benign prostatic hyperplasia without lower urinary tract symptoms. COMPARISON: CT abdomen and pelvis 05/26/2018. TECHNIQUE: Real-time imaging of the kidneys and bladder. FINDINGS: RIGHT KIDNEY: 11.7 x 5.8 x 5.5 cm (SAG x AP x TRV). The kidney is normal in size, contour, and echogenicity. Renal cortical thickness is normal. No calculi or focal parenchymal lesions. No hydronephrosis. LEFT KIDNEY: 11.5 x 6.0 x 5.1 cm (SAG x AP x TRV). The kidney is normal in size, contour, and echogenicity. Renal cortical thickness is normal. Some echogenic foci are seen in the kidney without shadowing possibly vascular calcifications versus tiny stones. No stones were seen on prior imaging. No definite calculi or focal parenchymal lesions. No hydronephrosis. BLADDER: Well distended and normal. Bilateral ureteral jets are demonstrated. Prevoid bladder volume is 333 mL. Postvoid bladder volume is 214 mL. ADDITIONAL FINDINGS: Prostate minimally prominent at 28 mL. US/US retroperitoneal comp IMPRESSION: 1. Minimal prostate enlargement at 28 mL but large 214 mL postvoid residual. 2. Question of tiny left renal calculi versus vascular calcifications.
== END 2022-12-15 10:20 | disposition home or self-care (01) ==
LOC: HO.US 10:19
PROVIDERS: PCP Internal Medicine; Visit Provider Nurse Practitioner Family
DX: N40.0 Benign prostatic hyperplasia without lower urinary tract symptoms (principal)
CPT/HCPCS: 76770

== ENCOUNTER → 2022-12-28 09:05 | Outpatient (BNVA) | payer MEDICARE, SELFPAY | PROVIDERS: PCP Internal Medicine; Visit Provider Nurse Practitioner Family | DX: N40.0 Benign prostatic hyperplasia without lower urinary tract symptoms (principal); E11.69 Type 2 diabetes mellitus with other specified complication; N52.1 Erectile dysfunction due to diseases classified elsewhere | CPT/HCPCS: 51798; 99212 ==

== ENCOUNTER 2023-03-01 13:22 | Outpatient (AMB) | payer MEDICARE, SELFPAY ==
--- NOTE | 2023-03-01 13:33 | A.OFFVIS_ITS ---
Intake Vital Signs 03/01/23 13:35 Height 5 ft 10 in Weight 251 lb 5.231 oz BMI 36.1 BP 130/68 Blood Pressure Location Lt brachial Position Sitting Pulse 80 Intake Visit Reasons: 6 mth f/up Intake Note: 6 month follow up w/ EKG Ribbon Sweatband Operator Required: No Accompanied by: Self / Same As Patient Allergies cephalexin [Keflex] Allergy (Intermediate, Verified 03/01/23 13:35) hives levofloxacin Allergy (Intermediate, Verified 03/01/23 13:35) Hives cetirizine [From [facility] [[email or web address]]] Adverse Reaction (Intermediate, Verified 03/01/23 13:35) Fatigue Medication List - Last Reconciled 03/01/23 by Delano Keller MD apixaban (Eliquis) 5 mg PO BID blood sugar diagnostic (MEDOPTouch Verio test strips) use 1 strip once a day to test blood sugar blood-glucose meter (MEDOPTouch Verio Flex Meter) As directed Bydureon BCise ER (exenatide microspheres) 2 mg (0.85 mL) subcut QWEEK 3 months NS ferrous sulfate 325 mg PO DAILY glipizide ER 2.5 mg PO QAM lancets (Accu-Chek Softclix Lancets) use 1 lancet daily to test blood sugar lisinopril 20 mg PO DAILY metformin 1,000 mg PO BID metoprolol tartrate 50 mg PO BID sildenafil (Viagra) 100 mg PO .prn 90 days simvastatin 20 mg PO BEDTIME tamsulosin 0.4 mg PO DAILY 90 days HPI HPI Comments History of Present Illness Details Alireza returns for follow-up regarding atrial fibrillation. No specific complaints from the same. No angina or shortness of breath or palpitations or in fact anything cardiac sounding. He states he is doing fine. 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 Social History Household Members: None Housing: House Are you a primary childcare center administrator to a significant other at home: No Do you presently have visiting nurse or other home services: No Patient Tobacco Use Status: Never used Tobacco e-Cigarette/Vaping Use: Never Used Second Hand Smoke Exposure: Yes service: No Current occupational status: retired Cognitive needs: No Hearing needs: No Vision needs: Yes Review of Systems Const Denies chills, Denies fatigue, Denies fever(s), Denies frequent falls, Denies weakness, Denies weight gain and Denies weight loss ENT Denies dizziness Card Denies chest pain, Denies leg edema, Denies lightheadedness, Denies palpitations, Denies dyspnea, Denies dyspnea on exertion, Denies orthopnea and Denies other (loss of consciousness) Resp Denies cough, Denies dyspnea and Denies dyspnea on exertion GI Denies hematochezia and Denies change in stool character Reports no additional complaints and Reports as per HPI Musc Denies abnormal gait, Denies muscle weakness, Denies numbness, Denies radiating pain into limb and Denies tingling Skin/Breast Reports system reviewed and no additional complaints, except as documented and Reports as per HPI Neuro Denies abnormal gait, Denies dizziness, Denies frequent falls, Denies numbness, Denies tingling and Denies weakness Psych Reports no additional complaints and Reports as per HPI Endo Denies fatigue and Denies palpitations Physical Exam Vital Signs: Last Vital Signs Pulse 80 03/01/23 13:35 BP 130/68 03/01/23 13:35 BMI result Body Mass Index 36.1 Const General: comfortable and no acute distress Orientation/consciousness: patient oriented x3 HEENT Other: Unremarkable Head: Yes normal to inspection Neck Neck: Yes normal visual inspection Chest Chest palpation & inspection: normal inspection of the chest Resp Auscultation: clear to auscultation bilaterally Cardio Palpation: normal PMI Heart sounds: S1 normal heart sound present, S2 normal heart sound present, no gallops, no murmurs and no rubs GI Palpation (GI): Soft to palpation Back/Spine/Pelvis Other: unremarkable Skin General skin exam: no rashes or lesions noted Neuro General: patient oriented x3 Extrem General: Yes normal to inspection Psych Mental Status: mental status grossly normal Office Procedures EKG Details: EKG today with atrial fibrillation at a rate of 80/Min; nonspecific ST-T changes. [id number], Complete Assessment & Plan Assessment & Plan (1) Persistent atrial fibrillation: Code(s): I48.19 - Other persistent atrial fibrillation Plan: Continue beta-blockers and Eliquis. Renal function is stable. (2) Cardiomyopathy: Code(s): I42.9 - Cardiomyopathy, unspecified Plan: Echocardiograms with variable LVEF. Most recently, 50-55%. Prior to that, 40- 45%. Even earlier, 55-60%. Myocardial perfusion imaging study shows no definitive findings of any ischemia or infarction. Possibly related to atrial fibrillation. Also, remote cardiac catheterization 2008. Minimal irregularities only. He does not have any symptoms or signs from this. No specific management at this time. Adequate control of atrial fibrillation. (3) Essential hypertension: Code(s): I10 - Essential (primary) hypertension Plan: On lisinopril. Stable. No changes. (4) Type 2 diabetes mellitus without complication, with no history of insulin use: Code(s): E11.9 - Type 2 diabetes mellitus without complications Plan: On metformin, glipizide. Last hemoglobin A1c is 6.1%. Coding Level of Care Code Est Pt Level 4 (23144) Diagnoses Persistent atrial fibrillation I48.19 Cardiomyopathy I42.9 Essential hypertension I10 Type 2 diabetes mellitus without complication, with no history of insulin use E11.9 CPT Codes EKG - CPT: [id number]-[id number], Complete ([id number])
[2023-03-01 13:35] VITALS: BP 130/68; PULSE 80; BMI 36.1
== END 2023-03-01 13:52 | disposition home or self-care (01) ==
PROVIDERS: PCP Internal Medicine; Referring Provider Internal Medicine; Visit Provider Internal Medicine
DX: I48.19 Other persistent atrial fibrillation (principal); I42.9 Cardiomyopathy, unspecified; I10 Essential (primary) hypertension; E11.9 Type 2 diabetes mellitus without complications
CPT/HCPCS: 93010; 99214

== ENCOUNTER → 2023-03-01 13:22 | Outpatient (BNVA) | payer MEDICARE, SELFPAY | PROVIDERS: PCP Internal Medicine; Referring Provider Internal Medicine; Visit Provider Internal Medicine | DX: I48.19 Other persistent atrial fibrillation (principal); I45.81 Long QT syndrome; I10 Essential (primary) hypertension; E11.9 Type 2 diabetes mellitus without complications; Z98.890 Other specified postprocedural states; Z79.84 Long term (current) use of oral hypoglycemic drugs | CPT/HCPCS: 93005; 99212 ==

== ENCOUNTER 2023-03-24 07:46 | Outpatient (REF) | payer MEDICARE, SELFPAY ==
[2023-03-24 11:48] LABS: Estimated Average Glucose 134 mg/dL; Hemoglobin A1C 125.9676 umol/L; Hemoglobin A1c % 6.3 % (<6.0)
[2023-03-24 12:09] LABS: Cholesterol 109 mg/dL (<200); HDL Cholesterol 33 mg/dL (>40); LDL Cholesterol Calculated 61 mg/dL (<100); Triglycerides 76 mg/dL (<150)
[2023-03-24 12:11] LABS: Creatinine Urine 106.58 mg/dL; Microalbum/Creatinine Ratio Ur 7.5 ug/mg cr (<30)
[2023-03-24 12:40] LABS: Vitamin D 25-OH Total 35.6 ng/mL (>30)
== END 2023-03-24 07:47 | disposition home or self-care (01) ==
LOC: HO.HMGCLDS 07:46
PROVIDERS: PCP Internal Medicine; Visit Provider Internal Medicine
DX: E11.9 Type 2 diabetes mellitus without complications (principal); E78.5 Hyperlipidemia, unspecified
CPT/HCPCS: 36415; 80061; 82043; 82306; 82570; 83036

== ENCOUNTER 2023-03-31 10:24 | Outpatient (AMB) | payer MEDICARE, SELFPAY ==
--- NOTE | 2023-03-31 10:26 | MHC.PC.OV ---
Vital Signs 03/31/23 10:42 Height 5 ft 10 in Weight 244 lb BMI 35.0 BP 116/72 Blood Pressure Location Rt brachial Position Sitting Pulse 76 Pulse Source Pulse Oximeter Pulse Oximetry (%) 99 Oxygen Delivery Method Room Air Intake Visit Reasons: 6m follow up anemia Intake Note: patient is here today for his 6 month f/u Allergies cephalexin [Keflex] Allergy (Intermediate, Verified 03/31/23 11:04) hives levofloxacin Allergy (Intermediate, Verified 03/31/23 11:04) Hives cetirizine [From Zyrtec] Adverse Reaction (Intermediate, Verified 03/31/23 11:04) Fatigue Medication List - Last Reconciled 03/31/23 by Latoya Lopez MD apixaban (Eliquis) 5 mg PO BID blood sugar diagnostic ([employer] test strips) use 1 strip once a day to test blood sugar blood-glucose meter (OneTouch Verio Flex Meter) As directed Bydureon BCise ER (exenatide microspheres) 2 mg (0.85 mL) subcut QWEEK 3 months NS ferrous sulfate 325 mg PO DAILY furosemide 40 mg PO DAILY glipizide ER 2.5 mg PO QAM lancets (Accu-Chek Softclix Lancets) use 1 lancet daily to test blood sugar lisinopril 20 mg PO DAILY metformin 1,000 mg PO BID metoprolol tartrate 50 mg PO BID sildenafil (Viagra) 100 mg PO .prn 90 days simvastatin 20 mg PO BEDTIME tamsulosin 0.4 mg PO DAILY 90 days Tobacco use date assessed: 03/31/23 Fall risk assessment: No Falls in past year Last assessed Fall Risk: 03/31/23 Dental Screening Dental Screen Date: 03/31/23 Did you have a dental visit in the last 12 months?: Yes Did you have a dental problem in the last 6 months where you did not have access to dental care?: No Was dental information given to patient?: Patient has dentist HPI 6m follow up anemia HPI Details 77-year-old male with diabetes mellitus, hypertension, dyslipidemia and normocytic normochromic anemia and thrombocytopenia, here today for follow-up. He has been feeling well, with no abnormal bleeding tendencies noted. He denies any fatigue, no chest pain or lightheadedness. No shortness of breath peer has been compliant with taking his medications and following diet. Latest fasting labs showed hemoglobin A1c at 6.3%, with fasting lipids and vitamin-D level within normal limits. He is currently being seen at [facility], diagnosed to have hypertensive retinopathy, history of posterior vitreous detachment left eye, has senile ectropion of right lower eyelid, and has Epiphora due to excess the commission of rights eye. Patient not satisfied with the treatment and care that he is getting at his current eye doctor and would like to transfer to [facility] instead. 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 Social History Household Members: None Housing: House Are you a primary acute care occupational therapist to a significant other at home: No Do you presently have visiting nurse or other home services: No Patient Tobacco Use Status: Never used Tobacco e-Cigarette/Vaping Use: Never Used Second Hand Smoke Exposure: Yes service: No Current occupational status: retired Cognitive needs: No Hearing needs: No Vision needs: Yes Questionnaire PHQ-9 Over the last 2 weeks, how often have you been bothered by any of the following problems? 1. Little interest or pleasure in doing things: not at all 2. Feeling down, depressed, or hopeless: not at all 3. Trouble falling or staying asleep, or sleeping too much: not at all 4. Feeling tired or having little energy: not at all 5. Poor appetite or overeating: not at all 6. Feeling bad about yourself - or that you are a failure or have let yourself or your family down: not at all 7. Trouble concentrating on things, such as reading the newspaper or watching television: not at all 8. Moving or speaking so slowly that other people could have noticed. Or the opposite - being so fidgety or restless that you have been moving around a lot more than usual: not at all 9. Thoughts that you would be better off or of hurting yourself in some way: not at all Total score: 0 Depression Screening Interpretation: Negative 15931 - PHQ-9 Billing: Yes Source: Developed by Drs. Isma Davidson, Radha Sumner, Bobby Reyes and colleagues, with an educational gina from [employer]. Thrive Questionnaire Date Thrive assessed: 03/31/23 I am a: Patient What is your living situation today?: I have a steady place to live Within the past 12 months, did the food you bought not last and you didn't have the money to get more?: Never true Within the past 12 months, did you worry whether your food would run out before you got money to buy more?: Never true Do you have trouble paying for medicines?: No Do you have trouble getting transportation to medical appointments?: No Do you have trouble paying your heating and electricity bill?: No Do you have trouble taking care of your child, family member or friend?: No Do you have trouble with day-to-day activities such as bathing, preparing meals, shopping, managing finances, etc.?: No Are you currently unemployed and looking for a job?: No Are you interested in more education?: No Please select the resources that you would like help with: None Currently or been in a relationship where the following occur: no concerns reported AUDIT C Alcohol Use Questionnaire (AUDIT-C) 1. How often do you have a drink containing alcohol?: Never Total Score: 0 MARY-7 AMB Questionnaire MARY-7 Date MARY - 7 assessed: 03/31/23 Feeling nervous, anxious, or on edge: 0 = Not at all Not being able to stop or control worryin = Not at all Worrying too much about different things: 0 = Not at all Trouble relaxin = Not at all Being so restless that it is hard to sit still: 0 = Not at all Becoming easily annoyed or irritable: 0 = Not at all Feeling afraid as if something awful might happen: 0 = Not at all Total MARY-7 score (0-4 normal; 5-9 mild; 10-14 moderate; 15-21 severe): 0 Source: Developed by Drs. Isma Davidson, Radha Sumner, Bobby Reyes and colleagues, with an educational gina from [employer]. MARY-7 Assessment Billing MARY-7 Assessment Tool: MARY-7 Assessment 25089 Review of Systems Const Denies fatigue, Denies fever(s), Denies frequent falls and Denies weakness Eyes Reports no additional complaints ENT Reports Normal hearing present and Denies dizziness Card Denies chest pain, Denies leg edema, Denies lightheadedness, Denies palpitations, Denies dyspnea, Denies dyspnea on exertion and Denies orthopnea Resp Denies cough, Denies dyspnea and Denies dyspnea on exertion GI Denies change in bowel habits Reports no additional complaints Musc Denies abnormal gait, Denies muscle weakness, Denies numbness and Denies tingling Skin/Breast Denies rash Neuro Reports Normal hearing present, Denies abnormal gait, Denies dizziness, Denies frequent falls, Denies numbness, Denies Sensory deficit (Neuro), Denies tingling and Denies weakness Psych Reports no additional complaints Endo Denies fatigue and Denies palpitations Ulysses/Lymph Reports easy bleeding and Reports easy bruising Aller/Immun Reports no additional complaints Physical exam (Primary Care) Vital Signs: Last Vital Signs Pulse 76 03/31/23 10:42 BP 116/72 03/31/23 10:42 Pulse Ox 99 03/31/23 10:42 Oxygen Delivery Method Room Air 03/31/23 10:42 BMI result Body Mass Index 35.0 BMI Assessment/Plan discussion: High BMI High, discussed plan: lifestyle, weight reduction, dietary and physical activity Tobacco/Smoking Status: Tobacco use Status Tobacco use date assessed 03/31/23 03/31/23 10:44 Patient Tobacco Use Status Never used Tobacco 03/31/23 10:26 e-Cigarette/Vaping Use Never Used 03/31/23 10:26 PHQ-9: PHQ-9 Score PHQ-9: Total score 0 03/31/23 11:28 Depression Screening Interpretation: Negative Thrive Assessment: Date of Thrive Assessment Date Thrive assessed 03/31/23 03/31/23 11:05 Currently or been in a relationship where the following occur: no concerns reported Const General: comfortable and no acute distress Orientation/consciousness: patient oriented x3 Limitations: no limitations HENMT Ears: hearing grossly normal bilaterally, external ears normal, TM's normal bilaterally and EAC's normal General nose exam: Normal external nose present and No nasal discharge present Mouth: oropharynx normal and moist mucous membranes Eyes Other: Excessive lacrimation OD Eyelids: Yes eyelid abnormality (Ectropion OD) Conjunctivae: conjunctivae normal Pupils: Equal, round and reactive pupils present EOM: EOMs intact bilaterally Neck Neck: Yes full ROM, Yes no lymphadenopathy and Yes supple Resp Effort & Inspection: normal respiratory effort and able to speak in complete sentences Auscultation: clear to auscultation bilaterally Cardio Other: Irregularly irregular rhythm GI Inspection: Yes normal to inspection Palpation (GI): Soft to palpation, nontender and no masses Auscultation: normal bowel sounds General: Yes no CVA tenderness Back/Spine/Pelvis Back: no CVA tenderness and No back tenderness Skin General skin exam: dry skin Neuro General: patient oriented x3, gait normal, tone normal, moves all extremities, Normal light touch and pain sensation and no focal motor deficits Cranial nerves: Yes Equal, round and reactive pupils present and Yes Normal hearing present Cognition (Neuro): normal cognition Gait exam (Neuro): Normal gait present Motor exam (neuro): 5/5 motor strength present throughout Sensory Exam: No Sensory deficit (Neuro) Extrem General: Yes full ROM, Yes no joint enlargement, Yes no clubbing, cyanosis or edema, Yes no calf tenderness and Yes normal gait Psych Appearance: grossly normal and well kempt Mental Status: mental status grossly normal Speech and movement: Normal speech and movement present Affect: normal affect Attitude: cooperative Assessment and Plan Assessment & Plan (1) Type 2 diabetes mellitus without complication, with no history of insulin use: Code(s): E11.9 - Type 2 diabetes mellitus without complications Plan: Recent lab results reviewed with patient, with sugar and hemoglobin A1c stable and at goal. Continue metformin 1000 mg 1 tablet twice a day, Bydureon ER 2 mg every week and glipizide ER 2.5 mg in a.m. with food. continue to check fasting blood sugar at home, maintain log and bring to next appointment for review. Reinforced diabetic diet and regular exercise with patient. Counseled regarding importance of yearly diabetes retinopathy screening, referred to [facility]. Patient advised to inspect feet daily, for any signs of injury, callus or infection, currently sees Dr. Ibrahim peer Compliance with diet and regular exercise again stressed. Blood pressure goal is less than 130/80, goal LDL is less than 100 and goal hemoglobin A1c is less than 7% follow-up appointment made in-6--months, after fasting labs done. (2) Dyslipidemia: Code(s): E78.5 - Hyperlipidemia, unspecified Plan: Reviewed recent fasting lipid profile with patient with levels within normal limit . Continue with simvastatin 20 mg at bedtime , in addition to adherence to low-cholesterol diet and regular exercise, at least 30 minutes 3 to 4 times a week. Advised patient to make healthy food choices, eat more fruits, vegetables, whole grains, wild caught fish and low-fat dairy. Limit amount of meat and fried or fatty food products, as well as processed foods and fast foods. Follow-up scheduled with repeat fasting lipid panel in months. (3) Essential hypertension: Code(s): I10 - Essential (primary) hypertension Plan: Blood pressure at goal of less than 130/80. Continue with current medication. Reinforced importance of following a low sodium diet, getting regular exercise, and lowering stress levels. (4) Epiphora due to excess lacrimation of right side: Code(s): H04.211 - Epiphora due to excess lacrimation, right lacrimal gland Plan: Does not want to go to [facility] anymore, dissatisfied with care and treatment. Referred to [facility] (5) Senile ectropion of right lower eyelid: Code(s): H02.132 - Senile ectropion of right lower eyelid Plan: Does not want to go to [facility] anymore, dissatisfied with care and treatment. Referred to [facility] (6) Hypertensive retinopathy: Code(s): H35.039 - Hypertensive retinopathy, unspecified eye Qualifiers: Laterality: unspecified laterality Qualified Code(s): H35.039 - Hypertensive retinopathy, unspecified eye Plan: Does not want to go to [facility] anymore, dissatisfied with care and treatment. Referred to [facility] (7) Posterior vitreous detachment, left eye: Code(s): H43.812 - Vitreous degeneration, left eye Plan: Does not want to go to [facility] anymore, dissatisfied with care and treatment. Referred to [facility] (8) Thrombocytopenia: Code(s): D69.6 - Thrombocytopenia, unspecified Plan: Will repeat another CBC with platelet in 6 months (9) Normocytic anemia: Code(s): D64.9 - Anemia, unspecified Plan: Repeat CBC in 6 months Orders: Orders Hemoglobin A1c 09/01/23 E11.9 - Type 2 diabetes mellitus without complications, E78.5 - Hyperlipidemia, unspecified, I10 - Essential (primary) hypertension Aspartate Amino Transferase 09/01/23 E11.9 - Type 2 diabetes mellitus without complications, E78.5 - Hyperlipidemia, unspecified, I10 - Essential (primary) hypertension Microalbumin, Random (w Creat) 09/01/23 E11.9 - Type 2 diabetes mellitus without complications, E78.5 - Hyperlipidemia, unspecified, I10 - Essential (primary) hypertension Vitamin D 25-OH Total 09/01/23 E11.9 - Type 2 diabetes mellitus without complications, E78.5 - Hyperlipidemia, unspecified, I10 - Essential (primary) hypertension Alanine Aminotransferase 09/01/23 E11.9 - Type 2 diabetes mellitus without complications, E78.5 - Hyperlipidemia, unspecified, I10 - Essential (primary) hypertension Basic Metabolic Panel Fasting 09/01/23 E11.9 - Type 2 diabetes mellitus without complications, E78.5 - Hyperlipidemia, unspecified, I10 - Essential (primary) hypertension Lipid Panel 09/01/23 E11.9 - Type 2 diabetes mellitus without complications, E78.5 - Hyperlipidemia, unspecified, I10 - Essential (primary) hypertension Referrals Ophthalmology Referral H35.039 - Hypertensive retinopathy, unspecified eye, H43.812 - Vitreous degeneration, left eye, H04.211 - Epiphora due to excess lacrimation, right lacrimal gland, H02.132 - Senile ectropion of right lower eyelid, E11.9 - Type 2 diabetes mellitus without complications Medications: Changed From metformin 1,000 mg PO BID 180 tabs 1RF To metformin 1,000 mg PO BID 180 tabs 4RF Refilled Bydureon BCise ER (exenatide microspheres) 2 mg (0.85 mL) subcut QWEEK 10.2 mL 4RF 3 months NS E11.9 - Type 2 diabetes mellitus without complications simvastatin 20 mg PO BEDTIME 90 tabs 3RF ferrous sulfate 325 mg PO DAILY 90 tabs 1RF D50.9 - Iron deficiency anemia, unspecified glipizide ER 2.5 mg PO QAM 90 tabs 3RF Coding Level of Care Code Est Pt Level 4 (93402) Diagnoses Type 2 diabetes mellitus without complication, with no history of insulin use E11.9 Dyslipidemia E78.5 Essential hypertension I10 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
[2023-03-31 10:42] VITALS: BP 116/72; PULSE 76; O2SAT 99; BMI 35.0
== END 2023-03-31 11:41 | disposition home or self-care (01) ==
PROVIDERS: Visit Provider Internal Medicine
DX: E11.9 Type 2 diabetes mellitus without complications (principal); D69.6 Thrombocytopenia, unspecified; E78.5 Hyperlipidemia, unspecified; I10 Essential (primary) hypertension; H04.211 Epiphora due to excess lacrimation, right lacrimal gland; H02.132 Senile ectropion of right lower eyelid; H35.032 Hypertensive retinopathy, left eye; H43.812 Vitreous degeneration, left eye; D64.9 Anemia, unspecified
CPT/HCPCS: 99214

== ENCOUNTER 2023-08-09 10:08 | Outpatient (REF) | payer MEDICARE, SELFPAY ==
[2023-08-09 13:29] LABS: Imm Gran Abs Auto 0.02 X10*3/uL (0.00-0.03); Imm Gran Pct Auto 0.3 % (0.0-0.4); MANUAL DIFF FLAG SCAN; SCAN SMEAR FLAG 1
[2023-08-09 13:31] LABS: Basophils Percent Auto 0.6 % (0-2); Eosinophils Absolute Auto 0.1 X10*3/uL (0.0-0.4); Eosinophils Percent Auto 1.7 % (0-4); Hematocrit 37.3 % (42.0-52.0); Hemoglobin 11.9 g/dl (14.0-18.0); Lymphocytes Absolute Auto 1.1 X10*3/uL (1.2-4.9); Lymphocytes Percent Auto 16.7 % (20-40); Mean Corpuscular HGB Conc 31.9 g/dl (31.0-36.0); Mean Corpuscular Hemoglobin 27.9 pg (27.0-33.0); Mean Corpuscular Volume 87.6 fL (80.0-98.0); Monocytes Absolute Auto 0.4 X10*3/uL (0.1-1.2); Monocytes Percent Auto 6.6 % (2-11); Neutrophils Absolute Auto 4.7 x10*3/uL (2.0-8.3); Neutrophils Percent Auto 74.1 % (45-73); PLT CLUMP 1; Red Blood Count 4.26 X10*6/uL (4.60-5.80); Red Cell Distribution Width 22.5 % (11.0-16.0)
[2023-08-09 13:41] LABS: PLT ABN DIST 1; Platelet Count 169 X10*3/uL (160-400); White Blood Count 6.3 X10*3/uL (4.8-10.8)
[2023-08-09 13:55] LABS: Iron 113 mcg/dL (45-160); Percent Iron Saturation 56 % (15-50); Total Iron Binding Capacity 203 mcg/dL (228-428); Unsaturated Iron Binding 90 ug/dL
[2023-08-09 14:04] LABS: SLIDE REVIEW VERIFIED
[2023-08-09 14:14] LABS: Ferritin 242 ng/mL (20-250); TSH reflex Free T4 3.51 uIU/mL (0.32-4.0)
[2023-08-09 14:26] LABS: Folate 7.3 ng/mL (> or = 4.0); Vitamin B12 305 pg/mL (200-900)
[2023-08-10 16:15] LABS: Immunoglobulin A 155 mg/dL (70-320)
[2023-08-10 18:59] LABS: Gliadin Deamidated IgA Ab <1.0 U/mL; Gliadin Deamidated IgG Ab <1.0 U/mL; Transglutaminase Ab IgG <1.0 U/mL; Transglutaminase IgA <1.0 U/mL
[2023-08-12 13:14] LABS: Endomysial IgA Antibody Negative (Negative)
== END 2023-08-09 10:09 | disposition home or self-care (01) ==
LOC: HO.HMGCLDS 10:08
PROVIDERS: PCP Internal Medicine; Visit Provider Internal Medicine
DX: D50.8 Other iron deficiency anemias (principal); K59.00 Constipation, unspecified
CPT/HCPCS: 36415; 82607; 82728; 82746; 82784; 83540; 84443; 85025; 86231; 86258; 86364

== ENCOUNTER 2023-08-22 10:33 | Outpatient (AMB) | payer MEDICARE, SELFPAY ==
--- NOTE | 2023-08-22 10:35 | A.OFFVIS_ITS ---
Intake Vital Signs 08/22/23 10:38 Height 5 ft 10 in Weight 249 lb 1.957 oz BMI 35.7 BP 140/60 H Blood Pressure Location Lt brachial Position Sitting Pulse 96 Intake Visit Reasons: 6 month follow up Intake Note: 6 month follow up Human Services Supervisor Required: No Accompanied by: Self / Same As Patient Allergies cephalexin [Keflex] Allergy (Intermediate, Verified 08/22/23 10:38) hives levofloxacin Allergy (Intermediate, Verified 08/22/23 10:38) Hives cetirizine [From Zyrtec] Adverse Reaction (Intermediate, Verified 08/22/23 10:38) Fatigue Medication List - Last Reconciled 08/22/23 by Delano Keller MD apixaban (Eliquis) 5 mg PO BID blood sugar diagnostic ([facility] test strips) use 1 strip once a day to test blood sugar blood-glucose meter ([facility] Flex Meter) As directed Bydureon BCise ER (exenatide microspheres) 2 mg (0.85 mL) subcut QWEEK 3 months NS ferrous sulfate 325 mg PO DAILY furosemide 40 mg PO DAILY glipizide ER 2.5 mg PO QAM lancets (Accu-Chek Softclix Lancets) use 1 lancet daily to test blood sugar lisinopril 20 mg PO DAILY metformin 1,000 mg PO BID metoprolol tartrate 50 mg PO BID sildenafil (Viagra) 100 mg PO .prn 90 days simvastatin 20 mg PO BEDTIME tamsulosin 0.4 mg PO DAILY 90 days HPI HPI Comments History of Present Illness Details Alireza returns for follow-up regarding atrial fibrillation. He states he is doing well. No complaints like angina or shortness of breath or palpitations or in fact anything cardiac sounding. 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 Social History Household Members: None Housing: House Are you a primary foster care social worker to a significant other at home: No Do you presently have visiting nurse or other home services: No Patient Tobacco Use Status: Never used Tobacco e-Cigarette/Vaping Use: Never Used Second Hand Smoke Exposure: Yes service: No Current occupational status: retired Cognitive needs: No Hearing needs: No Vision needs: Yes Review of Systems Const Denies weakness ENT Denies dizziness Card Denies chest pain, Denies chest pain with activity, Denies syncope, Denies rapid heart rate, Denies pedal edema, Denies edema, Denies leg edema, Denies lightheadedness, Denies palpitations, Denies dyspnea, Denies dyspnea on exertion and Denies orthopnea Resp Denies cough, Denies dyspnea and Denies dyspnea on exertion GI Denies hematochezia and Denies change in stool character Musc Denies abnormal gait, Denies muscle cramps, Denies muscle weakness, Denies numbness, Denies radiating pain into limb and Denies tingling Neuro Denies abnormal gait, Denies dizziness, Denies syncope, Denies numbness, Denies tingling and Denies weakness Endo Denies palpitations Physical Exam Vital Signs: Last Vital Signs Pulse 96 08/22/23 10:38 BP 140/60 H 08/22/23 10:38 BMI result Body Mass Index 35.7 Const General: comfortable and no acute distress Orientation/consciousness: patient oriented x3 HEENT Other: Unremarkable Head: Yes normal to inspection Neck Neck: Yes normal visual inspection Chest Chest palpation & inspection: normal inspection of the chest Resp Auscultation: clear to auscultation bilaterally Cardio Palpation: normal PMI Heart sounds: S1 normal heart sound present, S2 normal heart sound present, no gallops, no murmurs and no rubs GI Palpation (GI): Soft to palpation Back/Spine/Pelvis Other: unremarkable Skin General skin exam: no rashes or lesions noted Neuro General: patient oriented x3 Extrem General: Yes normal to inspection Psych Mental Status: mental status grossly normal Assessment & Plan Assessment & Plan (1) Persistent atrial fibrillation: Code(s): I48.19 - Other persistent atrial fibrillation Plan: Continue beta-blockers and Eliquis. (2) Cardiomyopathy: Code(s): I42.9 - Cardiomyopathy, unspecified Plan: Echocardiograms with variable LVEF. Most recently, 50-55%. Prior to that, 40- 45%. Even earlier, 55-60%. Myocardial perfusion imaging study shows no definitive findings of any ischemia or infarction. Possibly related to atrial fibrillation. Also, remote cardiac catheterization 2008. Minimal irregularities only. (3) Essential hypertension: Code(s): I10 - Essential (primary) hypertension Plan: On lisinopril. (4) Type 2 diabetes mellitus without complication, with no history of insulin use: Code(s): E11.9 - Type 2 diabetes mellitus without complications Plan: On metformin, glipizide. Last hemoglobin A1c is 6.3%. Coding Level of Care Code Est Pt Level 4 (06048) Diagnoses Persistent atrial fibrillation I48.19 Cardiomyopathy I42.9 Essential hypertension I10 Type 2 diabetes mellitus without complication, with no history of insulin use E11.9
[2023-08-22 10:38] VITALS: BP 140/60; PULSE 96; BMI 35.7
== END 2023-08-22 10:48 | disposition home or self-care (01) ==
PROVIDERS: PCP Internal Medicine; Visit Provider Internal Medicine
DX: I48.19 Other persistent atrial fibrillation (principal); I42.9 Cardiomyopathy, unspecified; I10 Essential (primary) hypertension; E11.9 Type 2 diabetes mellitus without complications
CPT/HCPCS: 99214

== ENCOUNTER → 2023-08-22 10:33 | Outpatient (BNVA) | payer MEDICARE, SELFPAY | PROVIDERS: PCP Internal Medicine; Visit Provider Internal Medicine | DX: I48.19 Other persistent atrial fibrillation (principal); I42.9 Cardiomyopathy, unspecified; I10 Essential (primary) hypertension; E11.9 Type 2 diabetes mellitus without complications | CPT/HCPCS: 99212 ==

== ENCOUNTER 2023-11-09 07:07 | Outpatient (REF) | payer MEDICARE, SELFPAY ==
[2023-11-09 10:52] LABS: MANUAL DIFF FLAG NO
[2023-11-09 10:53] LABS: Estimated Average Glucose 131 mg/dL; Hemoglobin A1c % 6.2 % (<6.0)
[2023-11-09 10:58] LABS: Basophils Absolute Auto 0.1 X10*3/uL (0.0-0.2); Basophils Percent Auto 0.7 % (0-2); Eosinophils Absolute Auto 0.2 X10*3/uL (0.0-0.4); Eosinophils Percent Auto 2.4 % (0-4); Hematocrit 38.7 % (42.0-52.0); Hemoglobin 12.6 g/dl (14.0-18.0); Imm Gran Abs Auto 0.02 X10*3/uL (0.00-0.03); Imm Gran Pct Auto 0.3 % (0.0-0.4); Lymphocytes Absolute Auto 1.2 X10*3/uL (1.2-4.9); Lymphocytes Percent Auto 15.6 % (20-40); Mean Corpuscular HGB Conc 32.6 g/dl (31.0-36.0); Mean Corpuscular Hemoglobin 28.7 pg (27.0-33.0); Mean Corpuscular Volume 88.2 fL (80.0-98.0); Monocytes Absolute Auto 0.6 X10*3/uL (0.1-1.2); Monocytes Percent Auto 8.7 % (2-11); Neutrophils Absolute Auto 5.3 x10*3/uL (2.0-8.3); Neutrophils Percent Auto 72.3 % (45-73); Platelet Count 162 X10*3/uL (160-400); Red Blood Count 4.39 X10*6/uL (4.60-5.80); Red Cell Distribution Width 22.7 % (11.0-16.0); White Blood Count 7.4 X10*3/uL (4.8-10.8)
[2023-11-09 11:14] LABS: Alanine Aminotransferase 18 U/L (0-40); Albumin Level 3.9 g/dL (3.5-5.0); Alkaline Phosphatase 53 U/L (39-117); Anion Gap 14 (12-20); Aspartate Amino Transferase 13 U/L (5-37); Bilirubin Total 0.7 mg/dL (0.0-1.0); Blood Urea Nitrogen 19 mg/dL (9-16); Calcium 9.5 mg/dL (8.4-10.2); Carbon Dioxide 24 mmol/L (22-29); Chloride 106 mmol/L (96-108); Cholesterol 106 mg/dL (<200); Estimated Glomerular Filt Rate > 60; Glucose Fasting 146 mg/dL (60-99); Glucose Random 146 mg/dL (60-115); HDL Cholesterol 30 mg/dL (>40); LDL Cholesterol Calculated 61 mg/dL (<100); Potassium 4.3 mmol/L (3.3-5.1); Sodium 140 mmol/L (135-145); Total Protein 6.4 g/dL (6.5-8.0); Triglycerides 78 mg/dL (<150)
[2023-11-09 11:16] LABS: Ferritin 229 ng/mL (20-250)
[2023-11-09 11:28] LABS: Creatinine Urine 20.28 mg/dL; Microalbumin Urine < 5.0 mg/L
[2023-11-09 11:31] LABS: Vitamin D 25-OH Total 37.3 ng/mL (>30)
== END 2023-11-09 07:08 | disposition home or self-care (01) ==
LOC: HO.HMGCLDS 07:07
PROVIDERS: Internal Medicine Medical Oncology; PCP Internal Medicine; Visit Provider Internal Medicine
DX: E11.9 Type 2 diabetes mellitus without complications (principal); E78.5 Hyperlipidemia, unspecified; I10 Essential (primary) hypertension; D64.9 Anemia, unspecified; D69.6 Thrombocytopenia, unspecified
CPT/HCPCS: 36415; 80048; 80053; 80061; 82043; 82306; 82570; 82728; 83036; 85025

== ENCOUNTER 2023-11-21 11:50 | Outpatient (AMB) | payer MEDICARE, SELFPAY ==
[2023-11-21 11:55] VITALS: BP 130/70; PULSE 89; TEMP 36.6; O2SAT 98
--- NOTE | 2023-11-21 11:55 | AM.OFFWIN_ITS ---
Intake Vital Signs 11/21/23 11:55 Height 5 ft 10 in BP 130/70 Blood Pressure Location Rt brachial Position Sitting Pulse 89 Pulse Source Pulse Oximeter Temp 97.8 F Temp Source Oral Pulse Oximetry (%) 98 Oxygen Delivery Method Room Air Intake Visit Reasons: EP lower back pain Intake Note: pt is here for lower back pain Patient Tobacco Use Status: Never used Tobacco Accompanied by: Self / Same As Patient Allergies cephalexin [Keflex] Allergy (Intermediate, Verified 11/21/23 12:53) hives levofloxacin Allergy (Intermediate, Verified 11/21/23 12:53) Hives cetirizine [From [facility]] Adverse Reaction (Intermediate, Verified 11/21/23 12:53) Fatigue Medication List - Last Reconciled 11/21/23 by GWEN Chin apixaban (Eliquis) 5 mg PO BID blood sugar diagnostic (PunchdTouch Verio test strips) use 1 strip once a day to test blood sugar blood-glucose meter (Mobincubeuch Verio Flex Meter) As directed Bydufletcher BCise ER (exenatide microspheres) 2 mg (0.85 mL) subcut QWEEK 3 months NS ferrous sulfate 325 mg PO DAILY furosemide 40 mg PO DAILY glipizide ER 2.5 mg PO QAM lancets (Accu-Chek Softclix Lancets) use 1 lancet daily to test blood sugar lidocaine 4% (Salonpas (lidocaine)) 1 patch topical DAILY PRN lisinopril 20 mg PO DAILY metformin 1,000 mg PO BID metoprolol tartrate 50 mg PO BID sildenafil (Viagra) 100 mg PO .prn 90 days simvastatin 20 mg PO BEDTIME tamsulosin 0.4 mg PO DAILY 90 days Do you need a note to return to daycare/school/sports/work: No HPI HPI Comments History of Present Illness Details Patient is an 78-year-old male in today for sick visit. Reports lower back pain x4 days. Denies any trauma to the area, denies falling or tweaking his back. States he woke up in the morning noticed that his back was stiff, with pain to flexion extension. Denies radiculopathy. Has been utilize Tylenol with mild relief. Patient is currently on Plavix for AFib, but cannot utilize NSAIDs. Will obtain lumbar x-ray. Patient has no obvious deformities on physical exam. Has tenderness to the lumbar paraspinal muscles. Has slightly limited range of motion to rotation and flexion extension. Negative straight leg test. 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 Social History Household Members: None Housing: House Are you a primary childcare aide to a significant other at home: No Do you presently have visiting nurse or other home services: No Patient Tobacco Use Status: Never used Tobacco e-Cigarette/Vaping Use: Never Used Second Hand Smoke Exposure: Yes service: No Current occupational status: retired Cognitive needs: No Hearing needs: No Vision needs: Yes Review of Systems Const All systems reviewed & are unremarkable except as noted in HPI and below Musc Denies tingling Neuro Denies tingling and Denies paresthesias Physical Exam Const Other: Appearance: Alert.? Oriented X3.? No acute distress.? Head: Normocephalic. Neck: Normal inspection.? Neck supple.? Respiratory: No respiratory distress.? Skin: Skin warm and dry.? Normal skin color.? Normal skin turgor.? Back: No midline tenderness, no C-spine tenderness, full range of motion, no CVA tenderness bilaterally. +paraspinal muscle tenderness, lumbar. negative straight leg test. Neuro: Oriented X 3.? No motor deficit.? No sensory deficit. CN 2-12 intact Assessment & Plan Assessment & Plan (1) Lower back pain: Comment: X-ray obtained initial reading showed slight curvature and arthritis. Patient has been instructed utilize Salonpas and Tylenol. Patient cannot take NSAIDs due to eliquis. Will also give referral to physical therapy. Patient can also utilize ice and rest. Code(s): M54.50 - Low back pain, unspecified Qualifiers: Chronicity: acute Back pain laterality: unspecified Sciatica presence: without sciatica Qualified Code(s): M54.50 - Low back pain, unspecified Plan: Take your medications as prescribed. If you were prescribed antibiotics today, it is important that you take your medication to their entirety, do not skip any doses, do not finish them early. Follow-up with your primary care provider this week. Return to the emergency department with new or worsening symptoms. Such as fevers, chills, chest pain, shortness of breath, nausea, vomiting, dizziness, headache, vision changes, lethargy In case of emergency call 911 Plan follow up with PCP. Orders: Orders XR lumbar spine 2-3V Today M54.50 - Low back pain, unspecified PT Evaluation and Treatment Today M54.50 - Low back pain, unspecified Medications: New lidocaine 4% (Salonpas (lidocaine)) 1 patch topical DAILY PRN 15 ea 0RF pain Coding Level of Care Code Est Pt Level 4 (04288) Diagnoses Acute low back pain without sciatica, unspecified back pain laterality M54.50 Chronicity: acute Back pain laterality: unspecified Sciatica presence: without sciatica Time Spent (min) 35
== END 2023-11-21 13:31 | disposition home or self-care (01) ==
PROVIDERS: PCP Internal Medicine; Visit Provider Nurse Practitioner Primary Care
DX: M54.50 Low back pain, unspecified (principal)
CPT/HCPCS: 99214

== ENCOUNTER 2023-11-21 12:08 | Outpatient (REF) | payer MEDICARE, SELFPAY ==
--- NOTE | ~2023-11-21 | XR_ITS ---
EXAMINATION: XR LUMBOSACRAL SPINE CLINICAL INFORMATION: Low back pain unspecified. COMPARISON: None available. TECHNIQUE: Three views of the lumbosacral spine. FINDINGS: The bones are diffusely demineralized. There is a scoliosis convex left in the upper lumbar spine and convex right in the lower lumbar spine. A rounded density overlies a lower right rib, likely T11, likely related to overlying soft tissue calcification, probably the gallstone identified on the CT abdomen and pelvis of 05/26/2018. Facet arthritis in the lower lumbar spine. Straightening of the normal lumbar lordosis. Multilevel lumbar spondylosis. Advanced degenerative changes with loss of disc space height and subchondral sclerosis at L2-L3. [id number] loss of disc space height at L4-L5. [id number] loss of disc space height at L5-S1. Mild anterior wedging of L1 and T12 vertebral bodies. XR/XR lumbar spine 2-3V IMPRESSION: 1. Multilevel lumbar spondylosis most notable at L2-L3, L4-L5 and L5-S1. 2. Facet arthritis in the lower lumbar spine. 3. Mild anterior wedging of L1 and T12 vertebral bodies.
== END 2023-11-21 12:09 | disposition home or self-care (01) ==
LOC: HO.HMGCX 12:08
PROVIDERS: PCP Internal Medicine; Visit Provider Nurse Practitioner Primary Care
DX: M54.50 Low back pain, unspecified (principal)
CPT/HCPCS: 72100

== ENCOUNTER 2023-12-22 07:40 | Outpatient (REF) | payer MEDICARE, SELFPAY ==
[2023-12-22 12:03] LABS: Prostate Specific Antigen 1.55 ng/mL (<0.05-4.0)
== END 2023-12-22 07:41 | disposition home or self-care (01) ==
LOC: HO.HMGCLDS 07:40
PROVIDERS: Visit Provider Nurse Practitioner Family
DX: N40.0 Benign prostatic hyperplasia without lower urinary tract symptoms (principal); Z12.5 Encounter for screening for malignant neoplasm of prostate
CPT/HCPCS: 36415; 84153

== ENCOUNTER 2023-12-28 14:10 | Outpatient (AMB) | payer MEDICARE, SELFPAY ==
--- NOTE | 2023-12-28 15:21 | MHC.PC.OV ---
Vital Signs 12/28/23 15:29 Height 5 ft 10 in Weight 240 lb BMI 34.4 BP 132/66 Blood Pressure Location Rt brachial Position Sitting Pulse 82 Pulse Source Pulse Oximeter Pulse Oximetry (%) 98 Oxygen Delivery Method Room Air Intake Visit Reasons: Annual Physical - see comments Intake Note: Pt is her today for his PE : Last colonoscopy 05/11/20 Allergies cephalexin [Keflex] Allergy (Intermediate, Verified 01/07/24 17:17) hives levofloxacin Allergy (Intermediate, Verified 01/07/24 17:17) Hives cetirizine [From Zyrtec] Adverse Reaction (Intermediate, Verified 01/07/24 17:17) Fatigue Medication List - Last Reconciled 12/28/23 by Latoya Lopez MD apixaban (Eliquis) 5 mg PO BID blood sugar diagnostic (IntegenXTouch Verio test strips) use 1 strip once a day to test blood sugar blood-glucose meter (IntegenXTouch Verio Flex Meter) As directed Bydureon BCise ER (exenatide microspheres) 2 mg (0.85 mL) subcut QWEEK 3 months NS ferrous sulfate 325 mg PO DAILY furosemide 40 mg PO DAILY glipizide ER 2.5 mg PO QAM lancets (Accu-Chek Softclix Lancets) use 1 lancet daily to test blood sugar lisinopril 20 mg PO DAILY metformin 1,000 mg PO BID metoprolol tartrate 50 mg PO BID sildenafil (Viagra) 100 mg PO .prn 90 days simvastatin 20 mg PO BEDTIME tamsulosin 0.4 mg PO DAILY 90 days Tobacco use date assessed: 12/28/23 Fall risk assessment: No Falls in past year Last assessed Fall Risk: 12/28/23 Dental Screening Dental Screen Date: 12/28/23 Did you have a dental visit in the last 12 months?: Yes Did you have a dental problem in the last 6 months where you did not have access to dental care?: No Was dental information given to patient?: Patient has dentist HPI Annual Physical - see comments HPI Details 78 year-old male with diabetes mellitus, hypertension, dyslipidemia and normocytic normochromic anemia , here today for his physical exam. He has been feeling well, with no complaints at present time. Has been compliant with taking his medications. Goes to [facility] for his diabetes retinopathy screening, which is currently up-to-date. 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 Social History Household Members: None Housing: House Are you a primary career guidance technician to a significant other at home: No Do you presently have visiting nurse or other home services: No Patient Tobacco Use Status: Never used Tobacco e-Cigarette/Vaping Use: Never Used Second Hand Smoke Exposure: Yes service: No Current occupational status: retired Cognitive needs: No Hearing needs: No Vision needs: Yes Questionnaire PHQ-9 Over the last 2 weeks, how often have you been bothered by any of the following problems? 1. Little interest or pleasure in doing things: not at all 2. Feeling down, depressed, or hopeless: not at all 3. Trouble falling or staying asleep, or sleeping too much: not at all 4. Feeling tired or having little energy: not at all 5. Poor appetite or overeating: not at all 6. Feeling bad about yourself - or that you are a failure or have let yourself or your family down: not at all 7. Trouble concentrating on things, such as reading the newspaper or watching television: not at all 8. Moving or speaking so slowly that other people could have noticed. Or the opposite - being so fidgety or restless that you have been moving around a lot more than usual: not at all 9. Thoughts that you would be better off or of hurting yourself in some way: not at all Total score: 0 Depression Screening Interpretation: Negative Depression Screening Done: Yes 14546 - PHQ-9 Billing: Yes Source: Developed by Drs. Isma Davidson, Rdaha Sumner, Bobby Reyes and colleagues, with an educational gina from [employer]. Thrive Questionnaire Date Thrive assessed: 12/28/23 I am a: Patient What is your living situation today?: I have a steady place to live Within the past 12 months, did the food you bought not last and you didn't have the money to get more?: Never true Within the past 12 months, did you worry whether your food would run out before you got money to buy more?: Never true Do you have trouble paying for medicines?: No Do you have trouble getting transportation to medical appointments?: No Do you have trouble paying your heating and electricity bill?: No Do you have trouble taking care of your child, family member or friend?: No Do you have trouble with day-to-day activities such as bathing, preparing meals, shopping, managing finances, etc.?: No Are you currently unemployed and looking for a job?: No Are you interested in more education?: No THRIVE Score: 0 AUDIT C Alcohol Use Questionnaire (AUDIT-C) 1. How often do you have a drink containing alcohol?: Never Total Score: 0 MARY-7 AMB Questionnaire MARY-7 Date MARY - 7 assessed: 12/28/23 Feeling nervous, anxious, or on edge: 0 = Not at all Not being able to stop or control worryin = Not at all Worrying too much about different things: 0 = Not at all Trouble relaxin = Not at all Being so restless that it is hard to sit still: 0 = Not at all Becoming easily annoyed or irritable: 0 = Not at all Feeling afraid as if something awful might happen: 0 = Not at all Total MARY-7 score (0-4 normal; 5-9 mild; 10-14 moderate; 15-21 severe): 0 Source: Developed by Drs. Isma Davidson, Bobby Montoyanke and colleagues, with an educational gina from [employer]. MARY-7 Assessment Billing MARY-7 Assessment Tool: MARY-7 Assessment 78055 Review of Systems Const Denies body aches, Denies fatigue and Denies weakness Eyes Details: Goes to [facility] for his routine eye exam and follow-up on retinopathy Reports no additional complaints ENT Reports no additional complaints and Reports Normal hearing present Card Denies chest pain, Denies chest pain with activity, Denies syncope, Denies rapid heart rate, Denies pedal edema, Denies edema, Denies irregular heart rhythm, Denies leg edema, Denies lightheadedness, Denies palpitations, Denies dyspnea and Denies dyspnea on exertion Resp Denies cough, Denies dyspnea and Denies dyspnea on exertion GI Denies abdominal pain, Denies melena, Denies hematochezia, Denies change in bowel habits, Denies change in stool character and Denies heartburn Reports no additional complaints Musc Denies abnormal gait, Denies muscle cramps, Denies muscle weakness, Denies numbness, Denies radiating pain into limb and Denies tingling Skin/Breast Denies rash Neuro Reports Normal hearing present, Denies abnormal gait, Denies syncope, Denies numbness, Denies Sensory deficit (Neuro), Denies tingling and Denies weakness Psych Reports no additional complaints Endo Denies fatigue and Denies palpitations Ulysses/Lymph Reports no additional complaints Aller/Immun Reports no additional complaints Physical exam (Primary Care) Vital Signs: Last Vital Signs Pulse 82 12/28/23 15:29 BP 132/66 12/28/23 15:29 Pulse Ox 98 12/28/23 15:29 Oxygen Delivery Method Room Air 12/28/23 15:29 BMI result Body Mass Index 34.4 Tobacco/Smoking Status: Tobacco use Status Tobacco use date assessed 12/28/23 12/28/23 15:22 Patient Tobacco Use Status Never used Tobacco 12/28/23 15:22 e-Cigarette/Vaping Use Never Used 12/28/23 15:22 PHQ-9: PHQ-9 Score PHQ-9: Total score 0 12/28/23 15:59 Depression Screening Interpretation: Negative Thrive Assessment: Date of Thrive Assessment Date Thrive assessed 12/28/23 12/28/23 15:36 Advance Care Planning discussion: Completed/Scanned Date of discussion: 12/28/23 Who was present: Patient Forms completed: Health Care Proxy Time spent: 16-45 minutes Actual minutes spent: 16 Const General: comfortable and no acute distress Orientation/consciousness: patient oriented x3 HENMT Ears: hearing grossly normal bilaterally, external ears normal, TM's normal bilaterally and EAC's normal General nose exam: Normal external nose present and No nasal discharge present Mouth: oropharynx normal and moist mucous membranes Eyes Conjunctivae: conjunctivae normal Pupils: Equal, round and reactive pupils present EOM: EOMs intact bilaterally Neck Neck: Yes full ROM, Yes no lymphadenopathy and Yes supple Resp Effort & Inspection: normal respiratory effort and able to speak in complete sentences Auscultation: clear to auscultation bilaterally Cardio Rate: regular rate Rhythm: regular rhythm Heart sounds: S1 normal heart sound present and S2 normal heart sound present GI Inspection: Yes normal to inspection Palpation (GI): Soft to palpation, nontender and no masses Auscultation: normal bowel sounds General: Yes no CVA tenderness Back/Spine/Pelvis Back: no CVA tenderness and No back tenderness Skin General skin exam: dry skin Neuro General: patient oriented x3, gait normal, tone normal, moves all extremities, Normal light touch and pain sensation and no focal motor deficits Cranial nerves: Yes Equal, round and reactive pupils present and Yes Normal hearing present Cognition (Neuro): normal cognition Gait exam (Neuro): Normal gait present Motor exam (neuro): 5/5 motor strength present throughout Sensory Exam: No Sensory deficit (Neuro) Extrem General: Yes full ROM, Yes no joint enlargement, Yes no clubbing, cyanosis or edema, Yes no calf tenderness and Yes normal gait Psych Appearance: grossly normal and well kempt Mental Status: mental status grossly normal Speech and movement: Normal speech and movement present Affect: normal affect Attitude: cooperative Assessment and Plan Assessment & Plan (1) Annual visit for general adult medical examination with abnormal findings: Code(s): Z00.01 - Encounter for general adult medical examination with abnormal findings Plan: Recent fasting lab results reviewed with patient.. Continue regular dental visit every 6 months and regular eye exams, goes to [facility] yearly. Take adequate calcium in diet and vitamin-D 3 at 2000 IU per cap once a day, in addition to weight-bearing exercises to help maintain good muscle tone and weight control. Sees Urology for follow-up on his benign prostatic hyperplasia. Up-to-date with his vaccinations , advised to get vaccinated against herpes zoster (2) Essential hypertension: Code(s): I10 - Essential (primary) hypertension Plan: Blood pressure at goal of less than 130/80. Currently on metoprolol tartrate 50 mg 1 tablet twice a day, lisinopril 20 mg daily, furosemide 40 mg daily. Reinforced importance of following a low sodium diet, getting regular exercise, and lowering stress levels. (3) Dyslipidemia: Code(s): E78.5 - Hyperlipidemia, unspecified Plan: Name: Alireza Gabriel Age/Sex: 78/M : 1945 Unit#: [id number] Attend Dr: Latoya Lopez MD Re11/09/23 Status: [facility]P [facility] Disch: SPEC : [id number] CHRISTIAN: 11/09/23 STATUS: COMP REQ : [id number] RECD: 11/09/23-[address]: Latoya Lopez MD COMP: 11/09/23-1130 ENTERED: 11/09/23-[address]: Serena Bolivar MD ORDERED: CMP, Met Prof Fast/R, Lipid Panel/R, Vitamin D 25-OH/R Test Result Flag Reference Sodium 140 135-145 mmol/L Potassium 4.3 3.3-5.1 mmol/L CL 106 96-108 mmol/L CO2 24 22-29 mmol/L Gap 14 12-20 BUN 19 H 9-16 mg/dL Creat 0.89 0.5-1.4 mg/dL EGFR > 60 NOTE: For -[place] individuals, multiply the result by 1.210. Chronic Kidney Disease: Estimated GFR < 60 mL/min/1.73m2 Severe Kidney Disease: Estimated GFR < 15 mL/min/1.73m2 Glucose, Random 146 H 60-115 mg/dL FBS 146 H 60-99 mg/dL A fasting glucose of 126 mg/dl or greater on more than one occasion is considered diagnostic of diabetes. CA 9.5 8.4-10.2 mg/dL Total Bili 0.7 0.0-1.0 mg/dL AST (GOT) 13 5-37 U/L ALT (GPT) 18 0-40 U/L Protein, Total 6.4 L 6.5-8.0 g/dL Alb 3.9 3.5-5.0 g/dL Triglyceride 78 <150 mg/dL Desirable Triglyceride: less than 150 mg/dL Borderline High Triglyceride 150-199 mg/dL High Triglyceride: 200-499 mg/dL Very High Triglyceride: greater than or equal to 5OO mg/dL Cholesterol 106 <200 mg/dL Desirable Cholesterol: less than 200 mg/dL Borderline High Cholesterol: 200-239 mg/dL High Cholesterol: greater than 239 mg/dL LDL Calculated 61 <100 mg/dL Desirable LDL: less than 100 mg/dL Near Optimal/Above Optimal LDL: 110-129 mg/dL Borderline High LDL: 130-159 mg/dL High LDL: 160-189 mg/dL Very High LDL: greater than or equal to 190 mg/dL HDL 30 L >40 mg/dL Desirable HDL: greater than 40 mg/dL Note: This HDL assay may give artificially low results in patients with liver disease. Alk Phos 53 39-117 U/L Vit D 25-OH Tot 37.3 >30 ng/mL Health Based Reference Values* < 20 ng/mL Deficient 20-30 ng/mL Insufficient > 30 ng/mL Sufficient Laboratory Tests 11/05/22 03/24/23 11/09/23 07:01 07:57 07:15 Creatinine 0.98 Estimated GFR > 60 Estimat Average Glucose 134 131 Hemoglobin A1c % 6.3 H 6.2 H Triglycerides 76 Cholesterol 109 LDL Cholesterol, Calc 61 HDL Cholesterol 33 L Prostate Specific Ag 25-OH Vitamin D Total 35.6 12/22/23 07:43 Creatinine Estimated GFR Estimat Average Glucose Hemoglobin A1c % Triglycerides Cholesterol LDL Cholesterol, Calc HDL Cholesterol Prostate Specific Ag 1.55 25-OH Vitamin D Total aquilino: Alireza Gabriel Age/Sex: 78/M : 1945 Unit#: [id number] Attend Dr: Latoya Lopez MD Re11/09/23 Status: DEP REF Location: [facility] Disch: SPEC : [id number] CHRISTIAN: 11/09/23 STATUS: COMP REQ : [id number] RECD: 11/09/23-[address]: Serena Bolivar MD COMP: 11/09/23 ENTERED: 11/09/[address] [facility] DR: Latoya Lopez MD ORDERED: CBC Auto Diff Test Result Flag Reference WBC 7.4 4.8-10.8 X10*3/uL RBC 4.39 L 4.60-5.80 X10*6/uL HGB 12.6 L 14.0-18.0 g/dl HCT 38.7 L 42.0-52.0 % MCV 88.2 80.0-98.0 fL MCH 28.7 27.0-33.0 pg MCHC 32.6 31.0-36.0 g/dl RDW 22.7 H 11.0-16.0 % PLT 162 160-400 X10*3/uL Neut Pct Auto 72.3 45-73 % ImGran Pct Auto 0.3 0.0-0.4 % Lymp Pct Auto 15.6 L 20-40 % [place] Pct Auto 8.7 2-11 % Eos Pct Auto 2.4 0-4 % Baso Pct Auto 0.7 0-2 % NRBC Pct Auto 0.0 0.0-0.2 /100WBC ANC Neut Abs # 5.3 2.0-8.3 x10*3/uL ImGran Abs Auto 0.02 0.00-0.03 X10*3/uL Lymph Abs Auto 1.2 1.2-4.9 X10*3/uL [place] Abs Auto 0.6 0.1-1.2 X10*3/uL Eos Abs Auto 0.2 0.0-0.4 X10*3/uL Baso Abs Auto 0.1 0.0-0.2 X10*3/uL NRBC Abs Auto 0.000 0.0-0.012 X10*3/uL (4) Normocytic anemia: Code(s): D64.9 - Anemia, unspecified Plan: Noted to have improvement in his hemoglobin hematocrit levels. Will continue ferrous sulfate 325 mg daily, (5) Type 2 diabetes mellitus without complication, with no history of insulin use: Code(s): E11.9 - Type 2 diabetes mellitus without complications Plan: Recent lab results reviewed with patient, with sugar and hemoglobin A1c stable and at goal. Continue with Bydureon 2 mg given subcutaneously once a week, glipizide ER 2.5 mg daily in a.m. and metformin a 1000 mg 1 tablet twice a day. continue to check fasting blood sugar at home, maintain log and bring to next appointment for review. Reinforced diabetic diet and regular exercise with patient. Counseled regarding importance of yearly diabetes retinopathy screening. Patient advised to inspect feet daily, for any signs of injury, callus or infection. Compliance with diet and regular exercise again stressed. Blood pressure goal is less than 130/80, goal LDL is less than 100 and goal hemoglobin A1c is less than 7% follow-up appointment made in-3--months, after fasting labs done. Up-to-date with Podiatry follow-up (6) Hypertensive retinopathy: Code(s): H35.039 - Hypertensive retinopathy, unspecified eye Qualifiers: Laterality: unspecified laterality Qualified Code(s): H35.039 - Hypertensive retinopathy, unspecified eye Plan: Followed at [facility], stressed importance good control of diabetes mellitus and hypertension (7) BPH (benign prostatic hyperplasia): Code(s): N40.0 - Benign prostatic hyperplasia without lower urinary tract symptoms Plan: Latest PSA is within normal limits. Currently on tamsulosin followed by Urology (8) Thrombocytopenia: Code(s): D69.6 - Thrombocytopenia, unspecified Plan: Latest CBC showed normal platelet count (9) Persistent atrial fibrillation: Code(s): I48.19 - Other persistent atrial fibrillation Plan: Currently on apixaban 5 mg 1 tablet twice a day, followed by cardiology (10) Advanced directives, counseling/discussion: Code(s): Z71.89 - Other specified counseling Plan: Initiated the conversation about Advanced Directives. Advanced Directives help patients prepare for current and future decisions about their medical treatment and place of care. Discussed with patient that it is a process where a patients current condition and prognosis are reviewed, their wishes for information regarding their illness are elicited, and likely medical dilemmas are presented and options discussed. Healthcare proxy form and MOLST form completed today. These forms can be amended as needed, reviewed yearly and make changes as needed Orders: Orders Alanine Aminotransferase 04/02/24 E11.9 - Type 2 diabetes mellitus without complications, D64.9 - Anemia, unspecified, D69.6 - Thrombocytopenia, unspecified, I10 - Essential (primary) hypertension, E78.5 - Hyperlipidemia, unspecified Hemoglobin A1c 04/02/24 E11.9 - Type 2 diabetes mellitus without complications, D64.9 - Anemia, unspecified, D69.6 - Thrombocytopenia, unspecified, I10 - Essential (primary) hypertension, E78.5 - Hyperlipidemia, unspecified Lipid Panel 04/02/24 E11.9 - Type 2 diabetes mellitus without complications, D64.9 - Anemia, unspecified, D69.6 - Thrombocytopenia, unspecified, I10 - Essential (primary) hypertension, E78.5 - Hyperlipidemia, unspecified IRON PROFILE 04/02/24 E11.9 - Type 2 diabetes mellitus without complications, D64.9 - Anemia, unspecified, D69.6 - Thrombocytopenia, unspecified, I10 - Essential (primary) hypertension, E78.5 - Hyperlipidemia, unspecified Basic Metabolic Panel Fasting 04/02/24 E11.9 - Type 2 diabetes mellitus without complications, D64.9 - Anemia, unspecified, D69.6 - Thrombocytopenia, unspecified, I10 - Essential (primary) hypertension, E78.5 - Hyperlipidemia, unspecified Aspartate Amino Transferase 04/02/24 E11.9 - Type 2 diabetes mellitus without complications, D64.9 - Anemia, unspecified, D69.6 - Thrombocytopenia, unspecified, I10 - Essential (primary) hypertension, E78.5 - Hyperlipidemia, unspecified Complete Blood Count Auto Diff 04/02/24 E11.9 - Type 2 diabetes mellitus without complications, D64.9 - Anemia, unspecified, D69.6 - Thrombocytopenia, unspecified, I10 - Essential (primary) hypertension, E78.5 - Hyperlipidemia, unspecified Coding Level of Care Code Est [facility] Care >65y(41590) Diagnoses Annual visit for general adult medical examination with abnormal findings Z00.01 Essential hypertension I10 Dyslipidemia E78.5 Normocytic anemia D64.9 Type 2 diabetes mellitus without complication, with no history of insulin use E11.9 Hypertensive retinopathy, unspecified laterality H35.039 Laterality: unspecified laterality BPH (benign prostatic hyperplasia) N40.0 Thrombocytopenia D69.6 Persistent atrial fibrillation I48.19 Advanced directives, counseling/discussion Z71.89 Additional Codes MARY-7 Assessment Billing - MARY-7 Assessment Tool: MARY-7 Assessment 68940 ([id number]) Vital Signs *Quality* - Advance Care Planning discussion: Completed/Scanned ([id number]) Vital Signs *Quality* - Time spent: 16-45 minutes ([id number])
[2023-12-28 15:29] VITALS: BP 132/66; PULSE 82; O2SAT 98; BMI 34.4
== END 2023-12-28 16:01 | disposition home or self-care (01) ==
LOC: HO.HMGC 14:10
PROVIDERS: PCP Internal Medicine; Visit Provider Internal Medicine
DX: Z00.00 Encounter for general adult medical examination without abnormal findings (principal); E11.9 Type 2 diabetes mellitus without complications; D69.6 Thrombocytopenia, unspecified; I48.19 Other persistent atrial fibrillation; I10 Essential (primary) hypertension; E78.5 Hyperlipidemia, unspecified; D64.9 Anemia, unspecified; H35.039 Hypertensive retinopathy, unspecified eye; N40.0 Benign prostatic hyperplasia without lower urinary tract symptoms
CPT/HCPCS: 1123F; 99397; 99497

== ENCOUNTER 2023-12-29 09:16 | Outpatient (AMB) | payer MEDICARE, SELFPAY ==
--- NOTE | 2023-12-29 09:28 | A.OFFVIS_ITS ---
Intake Visit Reasons: 1y/labs/PVR Intake Note: Patient presents for follow up on: BPH and PSA results PSA: 1.55 Urology Medications: tamsulosin, sildenafil Blood Thinner: Apixaban PVR: 162ml's [employer] Required: No Accompanied by: Self / Same As Patient Allergies cephalexin [Keflex] Allergy (Intermediate, Verified 12/29/23 10:12) hives levofloxacin Allergy (Intermediate, Verified 12/29/23 10:12) Hives cetirizine [From Zyrtec] Adverse Reaction (Intermediate, Verified 12/29/23 10:12) Fatigue Medication List - Last Reconciled 12/29/23 by GWEN Villa-MARISOL apixaban (Eliquis) 5 mg PO BID blood sugar diagnostic (Enmetric Systemsuch Verio test strips) use 1 strip once a day to test blood sugar blood-glucose meter (Torrent LoadingSystemsTouch Verio Flex Meter) As directed Bydureon BCise ER (exenatide microspheres) 2 mg (0.85 mL) subcut QWEEK 3 months NS ferrous sulfate 325 mg PO DAILY furosemide 40 mg PO DAILY glipizide ER 2.5 mg PO QAM lancets (Accu-Chek Softclix Lancets) use 1 lancet daily to test blood sugar lisinopril 20 mg PO DAILY metformin 1,000 mg PO BID metoprolol tartrate 50 mg PO BID sildenafil (Viagra) 100 mg PO .prn 90 days simvastatin 20 mg PO BEDTIME tamsulosin 0.4 mg PO DAILY 90 days HPI Comments Details: Alireza is a pleasant 78-year-old male patient of Dr. Lopez. He has a past medical history of BPH, versus AFib, erectile dysfunction associated with type 2 diabetes, cardiomyopathy, anemia, normocytic anemia, thrombocytopenia, dyslipidemia, and hypertension. Patient presents to the office today for follow- up of his BPH. In discussion with the patient today reports to be doing and feeling well. He reports compliance with Flomax 0.4mg as prescribed. Recent PSA results were reviewed with the patient today as noted and trended below. Previous workup has included a retroperitoneal ultrasound noting bilateral kidneys with no calculi, lesions, and or hydronephrosis noted. The bladder is distended and normal. Prostate minimally prominent at 28 mL. He does report noting episodes of nocturia from time to time however relates this to his increase in fluid intake prior to bed. He otherwise denies any bothersome urinary issues or concerns. He denies urinary urgency, urinary frequency, incontinence, hematuria, dysuria, foul smelling urine, changes to urinary stream, flank pain, fever, and or chills. He is happy with his current voiding parameters on 0.4 mg of Flomax. In office urinalysis results reviewed with the patient today. Initial PVR 162 mL however patient was able to void again in PVR was 0 mL. 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 Social History Household Members: None Housing: House Are you a primary continuum of care manager to a significant other at home: No Do you presently have visiting nurse or other home services: No Patient Tobacco Use Status: Never used Tobacco e-Cigarette/Vaping Use: Never Used Second Hand Smoke Exposure: Yes service: No Current occupational status: retired Cognitive needs: No Hearing needs: No Vision needs: Yes Review of Systems Const All systems reviewed & are unremarkable except as noted in HPI and below Reports as per HPI Eyes Reports no additional complaints ENT Reports no additional complaints Card Reports as per HPI Resp Reports as per HPI GI Reports no additional complaints Reports as per HPI Musc Reports no additional complaints Neuro Reports no additional complaints Psych Reports no additional complaints Endo Reports as per HPI Ulysses/Lymph Reports no additional complaints Aller/Immun Reports no additional complaints Physical Exam Const General: cooperative, comfortable, no acute distress, well developed, alert and awake Orientation/consciousness: patient oriented x3 Limitations: no limitations HEENT Head: Yes normal to inspection, Yes normocephalic and Yes atraumatic Neck Neck: Yes normal visual inspection and Yes trachea midline Chest Chest palpation & inspection: normal inspection of the chest Cardio Rate: regular rate Neuro General: patient oriented x3 Psych Appearance: grossly normal and well kempt Mental Status: mental status grossly normal Speech and movement: Normal speech and movement present and Clear speech present Affect: normal affect Attitude: cooperative Thought process: Normal thought process present Thought content: Normal thought content present Insight: Fair insight present (Psych) Judgement: Fair judgement present (Psych) Office Procedures Post Void Residual Post Residual Void Post Void Residual (PVR): 162 [id number] Void Residual by ultrasound Results AMB Urinalysis, Automated UA Leukoctes 0 Floyd/uL Last Edit by [employer] on 12/29/23 10:00 UA Nitrite Negative Last Edit by [employer] on 12/29/23 10:00 UA Urobilinogen 0.2 mg/dL Last Edit by [employer] on 12/29/23 10:00 UA Protein 0 mg/dL Last Edit by [employer] on 12/29/23 10:00 UA pH 6.0 Last Edit by [employer] on 12/29/23 10:00 UA Blood 0 Gualberto/uL Last Edit by [employer] on 12/29/23 10:00 UA Specific [place] 1.015 Last Edit by [employer] on 12/29/23 10:00 UA Ketone Negative Last Edit by [employer] on 12/29/23 10:00 UA Bilirubin 0 mg/dL Last Edit by [employer] on 12/29/23 10:00 UA Glucose 0 mg/dL Last Edit by [employer] on 12/29/23 10:00 Results Reviewed Results Reviewed: Laboratory Last Values Urine pH (Auto) 6.0 12/29/23 09:59 Specific [place] (Auto) 1.015 12/29/23 09:59 Urine Protein (Auto) 0 mg/dL 12/29/23 09:59 Glucose (UA)(Auto) 0 mg/dL 12/29/23 09:59 Urine Ketones (Auto) Negative 12/29/23 09:59 Urine Blood (Auto) 0 Gualberto/uL 12/29/23 09:59 Urine Nitrite (Auto) Negative 12/29/23 09:59 Urine Bilirubin (Auto) 0 mg/dL 12/29/23 09:59 Urine Urobilinogen (Auto) 0.2 mg/dL 12/29/23 09:59 Leukocyte Esterase (Auto) 0 Floyd/uL 12/29/23 09:59 Assessment & Plan Assessment & Plan (1) BPH (benign prostatic hyperplasia): Code(s): N40.0 - Benign prostatic hyperplasia without lower urinary tract symptoms Category: Medical (2) Erectile dysfunction associated with type 2 diabetes mellitus: Code(s): E11.69 - Type 2 diabetes mellitus with other specified complication; N52.1 - Erectile dysfunction due to diseases classified elsewhere Category: Medical Plan In office urinalysis results reviewed with the patient today; as noted above. PVR 162ml's however upon 2nd void PVR 0 mL. Patient does report episodes of nocturia however endorses drinking fluids prior to bed; discussed importance of limiting fluids to decrease episodes of nocturia. Patient otherwise denies any bothersome urinary issues or concerns. He reports be happy with current voiding parameters. Continue Flomax 0.4 mg daily as discussed and prescribed; refill provided. Recent PSA results reviewed with the patient today; as noted above. Patient reports be happy with his erections with p.r.n. as sildenafil; refill provided. PSA in one year Follow-up in 1 year with PSA to be completed prior; or sooner with any issues, concerns, and or questions. Orders: Orders AMB Urinalysis Automated Today Z13.9 - Encounter for screening, unspecified AMB Post Void Residual by ultrasound Today N40.0 - Benign prostatic hyperplasia without lower urinary tract symptoms Prostate Specific Antigen 1 Year N40.0 - Benign prostatic hyperplasia without lower urinary tract symptoms Medications: Refilled tamsulosin 0.4 mg PO DAILY 90 days 90 caps 3RF sildenafil (Viagra) [id number] [facility] [id number] Member [id number] 100 mg PO .prn 90 days 30 tabs 3RF Patient Instructions: The patient had an opportunity to ask questions regarding the treatment plan. All questions were answered. Physical exam, labs, and imaging were discussed and reviewed in detail. As well as risks, benefits, and discussion of treatment choices. No major barriers to understanding were identified. The patient ex pressed understanding and agreement with the above treatment plan. The patient was made aware they should contact our office by phone for worsening of their current condition, the appearance of new symptoms, or with any questions or concerns. Compliance is encouraged with any medications and follow up testing that is ordered. It is a privilege to be allowed the opportunity to participate in? your urological care.? Again, if you have any questions or concerns If you have any questions or concerns please do not hesitate to contact me. The office is [phone]. This note is constructed using voice recognition software. While every effort has been made to ensure accuracy predatory animal exterminator errors may have been included. Yours sincerely, TAHIRA Villa Coding Level of Care Code Est Pt Level 3 (10575) Complex EM visit Add On G2211 Diagnoses BPH (benign prostatic hyperplasia) N40.0 Erectile dysfunction associated with type 2 diabetes mellitus E11.69; N52.1 CPT Codes Post Residual Void - PVR CPT Code: 10933-Nfff Void Residual by ultrasound ([id number])
== END 2023-12-29 10:09 | disposition home or self-care (01) ==
PROVIDERS: PCP Internal Medicine; Visit Provider Nurse Practitioner Family
DX: N40.0 Benign prostatic hyperplasia without lower urinary tract symptoms (principal); E11.69 Type 2 diabetes mellitus with other specified complication; N52.1 Erectile dysfunction due to diseases classified elsewhere; Z13.9 Encounter for screening, unspecified
CPT/HCPCS: 99213; G2211

== ENCOUNTER → 2023-12-29 09:16 | Outpatient (BNVA) | payer MEDICARE, SELFPAY | PROVIDERS: PCP Internal Medicine; Visit Provider Nurse Practitioner Family | DX: N40.0 Benign prostatic hyperplasia without lower urinary tract symptoms (principal); E11.69 Type 2 diabetes mellitus with other specified complication; N52.1 Erectile dysfunction due to diseases classified elsewhere | CPT/HCPCS: 51798; 81003; 99212 ==

== ENCOUNTER 2024-01-08 09:00 | Outpatient (RCR) | payer MEDICARE, SELFPAY ==
--- NOTE | 2023-12-26 10:57 | MHC.PT.EP ---
[facility] [place] Office [place] Office [place] [facility] [address] Damian Bruner [address] [phone] F: [phone] F: [phone] F: [phone] F: [phone] Physical Therapy Plan of Care Date of Evaluation: 12/26/23 Date of Surgery: Diagnosis: Lumbar pain Assessment: 78 y/o male referred to PT with lumbar pain. S/s consistent with lumbar dysfunction/ OA resulting in pain and difficulty with walking, standing, lifting secondary to decreased lumbar/ hip AROM, decreased strength, increased tissue tension, and impaired gait pattern. Recommend PT 2x/ week for 4 weeks (he prefers 1x/week) to address impairments, implement HEP, and optimize functional mobility. Frequency and Duration: The patient will be seen 1x/week for 4 weeks Short Term Goals: 2 weeks i with HEP Alf Goals: 4 weeks I with HEP and self management of sx Pt will report 50% reduction in pain with ADL's (IR ranges 6-8) Pt will be able to walk with pain < 3/10 Treatment Plan: Modalities to reduce pain, spasms and effusion. Manual therapy to restore motion and function. Therapeutic exercise to improve strength and flexibility. Neuromuscular re-education for posture and balance. Therapeutic activities to return to functional activities of daily living. Electronically signed by: Sharita Lugo PT Please sign and return to therapist. Thank you for your referral.
--- NOTE | 2024-03-12 08:58 | MHC.PT.DC ---
[facility] [place] Office [place] Office [place] Office [address] Damian Bruner [address] [phone] F: [phone] F: [phone] F: [phone] F: [phone] Physical Therapy Discharge Report Diagnosis: Lumbar pain Date of Surgery: Date of Evaluation: 12/26/23 Date of Discharge: Treatments to Date: 3 Cancellations to Date: 0 No Shows to Date: Discharge Status: Discharge Summary: Pt did not f/u with further visits and is d/c to I HEP at this time. At last visit, he required cues for core muscle activation to decrease pelvic rocking and lordotic tendencies. Resistance was also progressed. Electronically signed by: Sharita Lugo PT Please sign and return to therapist. Thank you for your referral.
== END 2024-03-12 08:58 | disposition home or self-care (01) ==
LOC: HO.PTCHIC 09:00
PROVIDERS: PCP Internal Medicine; Visit Provider Nurse Practitioner Primary Care
DX: M54.50 Low back pain, unspecified (principal)
CPT/HCPCS: 97110; 97162

== ENCOUNTER 2024-02-19 10:22 | Outpatient (AMB) | payer MEDICARE, SELFPAY ==
[2024-02-19 10:32] VITALS: BP 130/62; PULSE 73; BMI 34.8
--- NOTE | 2024-02-19 10:32 | MHC.OFFVIS ---
Vital Signs 02/19/24 10:32 Height 5 ft 10 in Weight 242 lb 8.136 oz BMI 34.8 BP 130/62 Blood Pressure Location Lt brachial Position Sitting Pulse 73 Pulse Source Monitor Intake Visit Reasons: 6 mth f/up Allergies cephalexin [Keflex] Allergy (Intermediate, Verified 01/07/24 17:17) hives levofloxacin Allergy (Intermediate, Verified 01/07/24 17:17) Hives cetirizine [From Zyrtec] Adverse Reaction (Intermediate, Verified 01/07/24 17:17) Fatigue Medication List - Last Reconciled 02/19/24 by Delano Keller MD apixaban (Eliquis) 5 mg PO BID blood sugar diagnostic (MobileSpacesTouch Verio test strips) use 1 strip once a day to test blood sugar blood-glucose meter (MobileSpacesTouch Verio Flex Meter) As directed Bydureon BCise ER (exenatide microspheres) 2 mg (0.85 mL) subcut QWEEK 3 months NS ferrous sulfate 325 mg PO DAILY furosemide 40 mg PO DAILY glipizide ER 2.5 mg PO QAM lancets (Accu-Chek Softclix Lancets) use 1 lancet daily to test blood sugar lisinopril 20 mg PO DAILY metformin 1,000 mg PO BID metoprolol tartrate 50 mg PO BID sildenafil (Viagra) 100 mg PO .prn 90 days simvastatin 20 mg PO BEDTIME tamsulosin 0.4 mg PO DAILY 90 days HPI Comments Details: Alireza returns for follow-up regarding atrial fibrillation. Overall, generally getting along okay. No complaints like angina or shortness of breath or palpitations or in fact anything cardiac sounding. Seems to be tolerating anticoagulation without any issues. 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 Social History Household Members: None Housing: House Are you a primary acute care physician to a significant other at home: No Do you presently have visiting nurse or other home services: No Patient Tobacco Use Status: Never used Tobacco e-Cigarette/Vaping Use: Never Used Second Hand Smoke Exposure: Yes service: No Current occupational status: retired Cognitive needs: No Hearing needs: No Vision needs: Yes Review of Systems Const Denies weakness ENT Denies dizziness Card Denies chest pain, Denies chest pain with activity, Denies syncope, Denies rapid heart rate, Denies pedal edema, Denies edema, Denies leg edema, Denies lightheadedness, Denies palpitations, Denies dyspnea, Denies dyspnea on exertion and Denies orthopnea Resp Denies cough, Denies dyspnea and Denies dyspnea on exertion GI Denies hematochezia and Denies change in stool character Musc Denies abnormal gait, Denies muscle cramps, Denies muscle weakness, Denies numbness, Denies radiating pain into limb and Denies tingling Neuro Denies abnormal gait, Denies dizziness, Denies syncope, Denies numbness, Denies tingling and Denies weakness Endo Denies palpitations Physical Exam Vital Signs: Last Vital Signs Pulse 73 02/19/24 10:32 BP 130/62 02/19/24 10:32 BMI result Body Mass Index 34.8 Const General: comfortable and no acute distress Orientation/consciousness: patient oriented x3 HEENT Other: Unremarkable Head: Yes normal to inspection Neck Neck: Yes normal visual inspection Chest Chest palpation & inspection: normal inspection of the chest Resp Auscultation: clear to auscultation bilaterally Cardio Palpation: normal PMI Heart sounds: S1 normal heart sound present, S2 normal heart sound present, no gallops, no murmurs and no rubs GI Palpation (GI): Soft to palpation Back/Spine/Pelvis Other: unremarkable Skin General skin exam: no rashes or lesions noted Neuro General: patient oriented x3 Extrem General: Yes normal to inspection Psych Mental Status: mental status grossly normal Office Procedures EKG Details: EKG with atrial fibrillation at a rate of 73/Min; nonspecific ST-T changes; PVC versus aberrant conduction. [id number], Complete Assessment & Plan Assessment & Plan (1) Persistent atrial fibrillation: Code(s): I48.19 - Other persistent atrial fibrillation Category: Medical Plan: Continue beta-blockers and Eliquis. Check Holter. (2) Cardiomyopathy: Code(s): I42.9 - Cardiomyopathy, unspecified Category: Medical Plan: Echocardiograms with variable LVEF. Most recently, 50-55%. Prior to that, 40-45%. Even earlier, 55-60%. Myocardial perfusion imaging study shows no definitive findings of any ischemia or infarction. Possibly related to atrial fibrillation. Also, remote cardiac catheterization 2008. Minimal irregularities only. We can recheck an echocardiogram. (3) Essential hypertension: Code(s): I10 - Essential (primary) hypertension Category: Medical Plan: On lisinopril. (4) Type 2 diabetes mellitus without complication, with no history of insulin use: Code(s): E11.9 - Type 2 diabetes mellitus without complications Category: Medical Plan: On metformin, glipizide. Last hemoglobin A1c is 6.2%. Orders: Orders CA echo transthoracic complete Today I48.19 - Other persistent atrial fibrillation ECG 3 day holter monitor Today I48.19 - Other persistent atrial fibrillation Coding Level of Care Code Est Pt Level 4 (19872) Diagnoses Persistent atrial fibrillation I48.19 Cardiomyopathy I42.9 Essential hypertension I10 Type 2 diabetes mellitus without complication, with no history of insulin use E11.9 CPT Codes EKG - CPT: 17328-[id number], Complete ([id number])
== END 2024-02-19 10:50 | disposition home or self-care (01) ==
PROVIDERS: PCP Internal Medicine; Visit Provider Internal Medicine
DX: I48.19 Other persistent atrial fibrillation (principal); I42.9 Cardiomyopathy, unspecified; I10 Essential (primary) hypertension; E11.9 Type 2 diabetes mellitus without complications
CPT/HCPCS: 93010; 99214

== ENCOUNTER → 2024-02-19 10:22 | Outpatient (BNVA) | payer MEDICARE, SELFPAY | PROVIDERS: PCP Internal Medicine; Visit Provider Internal Medicine | DX: I48.19 Other persistent atrial fibrillation (principal); I42.9 Cardiomyopathy, unspecified; I10 Essential (primary) hypertension; Z79.01 Long term (current) use of anticoagulants | CPT/HCPCS: 93005; 99212 ==

== ENCOUNTER → 2024-03-19 10:31 | Outpatient (REF) | payer MEDICARE, SELFPAY ==
--- NOTE | 2024-03-19 10:35 | HM_ITS ---
Conclusion: 1. Patient was monitored for total period of 3 days 2. Baseline rhythm is atrial fibrillation with average heart of 73 beats per minute with good heart rate control 3. Nine pauses of greater than 2.5 seconds noted with longest of 3.3 seconds, not significant with atrial fibrillation 4. Frequent PVCs noted with total burden of 1.8% with 3 nonsustained ventricular tachycardia episode longest 4 beats and the fastest at 180 beats per minute 5. No patient reported events MTDD
--- NOTE | 2024-03-19 10:35 | CA_ITS ---
Transthoracic Echocardiogram Patient (Last, First, Middle): Alireza Gabriel M Gender: Male Date of : 1945 Age: 78 Procedure Date: 03/19/2024 Procedure Type: Transthoracic Echocardiogram Location: OP Height: 180. cm Weight: 109.77 kg BSA: 2.28 m2 Heart Rate: 78 bpm BP: 140 / 70 mmHg Tail Dogger: MELISSA Laboy MD: Delano Keller MD Rn Telephonic: Aquilino Ventura MD Symptoms: I48.19 - Other persistent atrial fibrillation Study Quality: Adequate w contrast ECG Rhythm: Atrial Fibrillation Conclusions: - 1. Normal LV ejection fraction 55-60% 2. Moderately dilated left atrium 3. Cardiac valvular Dopplers within normal limits 4. Upper limits of normal RV systolic pressure 5. Mildly dilated ascending aorta Findings Procedure Information Contrast agent, definity, is being given per protocol without apparent complications. Left Ventricle Normal left ventricular cavity size. There is mildly increased left ventricular wall thickness. The left ventricular systolic function is normal. The visually estimated ejection fraction is between 55-60%. Diastolic function is indeterminate on the basis of available data. There is moderate septal asymmetric hypertrophy. Right Ventricle Normal right ventricular cavity size. There is low normal right ventricular systolic function. Atria The left atrium is moderately dilated. There is no evidence of interatrial shunt. The right atrium is mildly dilated. Aortic Valve The aortic valve was not well visualized. There is no aortic valve stenosis. There is no aortic valve regurgitation. Mitral Valve There is mild anterior and posterior mitral leaflet thickening. There is mild mitral annular calcification. There is trace mitral valve regurgitation. There is no mitral valve stenosis. Pulmonic Valve The pulmonic valve was not well visualized. Tricuspid Valve Likely normal tricuspid valve structure and function. There is mild tricuspid valve regurgitation. The right ventricular systolic pressure is 35 mmHg. Normal right atrial pressure. There is no evidence of pulmonary hypertension. Great Vessels The pulmonary artery was not well visualized. There is mild dilatation of the ascending aorta measuring 4.00 cm. Venous The inferior vena cava is normal in size and collapses greater than 50% with inspiration. Pericardium/Pleural The pericardium was not well visualized. Measurements 2D Linear Measurements IVSd: 1.55 0.6-0.9/0.6-1.0 cm LVIDd: 4.63 3.9-5.3/4.2-5.9 cm LVIDd Index: 2.03 2.4-3.2/2.2-3.1 cm/m2 LVIDs: 3.38 2.0-3.6 cm LVPWd: 1.26 0.7-1.1 cm LA Diam: 4.00 2.7-3.8/3.0-4.0 cm LAIDs Index: 1.75 1.5-2.3 cm/m2 LV Mass: 325.08 67-162/88-224 g LV Mass Index: 142.58 43-95/49-115 g/m2 LVOT Diam: 2.30 3.0+(-)1.3 cm 2D Systolic Function EF 4C: 50.40 >55% EF 2C: 65.30 >55% EF BiP: 59.10 >55% Mitral Valve MV Pk E: 0.87 MV PK A: 0.40 MV Decel Time: 213.00 E/A: 2.20 E'Lateral: 8.52 E'Medial: 6.78 E/E' Med: 12.80 E/E' Lat: 10.20 PHT: 62.00 MVA PHT: 3.55 Decel [place]: 4.09 Aortic Valve AoV Pk Lance: 1.24 AoV Mn Lance: 0.91 AoV VTI: 0.27 AoV Pk Grad: 6.00 Aov Mn Grad: 3.00 ASHA Cont.VTI: 2.18 LVOT LVOT Pk Lance: 0.70 LVOT Mn Lance: 0.52 LVOT VTI: 0.14 LVOT Pk Grad: 2.00 LVOT Mn Grad: 1.00 LVOT Diam: 2.30 LVOT Area: 4.15 Diastolic Function MV Pk E: 0.87 MV Pk A: 0.40 E/A: 2.20 E'Medial: 6.78 E/E' Med: 12.80 E' Laterial: 8.52 E/E' Lat: 10.20 Right Ventricle TAPSE (mm): 16.30 TVS' Lance: 14.00 Tricuspid Valve TR Pk Lance: 2.81 TR Pk Grad: 32.00 RA Press: 3.00 RVSP: 35.00 Great Vessels Aorta Sinus of Valsalva: 4.00 2.0-3.5 cm Ao Asc: 4.00 2.1-3.4 cm Pulmonary Valve PV Pk Lance: 0.85 Peak PV Grad: 3.00 Updated in Other Vendor System with Status of Final Aquilino Ventura MD electronically signed on 03/20/2024 3:12:59 PM with status of Final
== END ==
LOC: HO.CARD 10:31
PROVIDERS: PCP Internal Medicine; Visit Provider Internal Medicine
DX: I48.19 Other persistent atrial fibrillation (principal)
CPT/HCPCS: 93242; 93306; Q9957

== ENCOUNTER → 2024-03-19 10:35 | Outpatient (BNV) | payer MEDICARE, SELFPAY | PROVIDERS: PCP Internal Medicine; Visit Provider Internal Medicine Cardiovascular Disease | DX: I48.91 Unspecified atrial fibrillation (principal) | CPT/HCPCS: 93244; 93306 ==

== ENCOUNTER 2024-04-15 08:32 | Outpatient (REF) | payer MEDICARE, SELFPAY ==
[2024-04-15 10:04] LABS: MANUAL DIFF FLAG NO
[2024-04-15 10:20] LABS: Basophils Absolute Auto 0.1 X10*3/uL (0.0-0.2); Basophils Percent Auto 1.1 % (0-2); Eosinophils Absolute Auto 0.1 X10*3/uL (0.0-0.4); Eosinophils Percent Auto 1.5 % (0-4); Hematocrit 35.4 % (42.0-52.0); Hemoglobin 11.6 g/dl (14.0-18.0); Imm Gran Abs Auto 0.01 X10*3/uL (0.00-0.03); Imm Gran Pct Auto 0.2 % (0.0-0.4); Lymphocytes Percent Auto 18.4 % (20-40); Mean Corpuscular HGB Conc 32.8 g/dl (31.0-36.0); Mean Corpuscular Hemoglobin 28.4 pg (27.0-33.0); Mean Corpuscular Volume 86.8 fL (80.0-98.0); Monocytes Absolute Auto 0.4 X10*3/uL (0.1-1.2); Monocytes Percent Auto 7.8 % (2-11); Neutrophils Absolute Auto 3.9 x10*3/uL (2.0-8.3); Platelet Count 164 X10*3/uL (160-400); Red Blood Count 4.08 X10*6/uL (4.60-5.80); Red Cell Distribution Width 24.8 % (11.0-16.0); White Blood Count 5.5 X10*3/uL (4.8-10.8)
[2024-04-15 10:27] LABS: Estimated Average Glucose 120 mg/dL; Hemoglobin A1C 117.3732 umol/L; Hemoglobin A1c % 5.8 % (<6.0); Total Hemoglobin (HGBA1C) 2908.1147 umol/L
[2024-04-15 10:34] LABS: Alanine Aminotransferase 13 U/L (0-40); Anion Gap 11 (12-20); Aspartate Amino Transferase 10 U/L (5-37); Blood Urea Nitrogen 16 mg/dL (9-16); Calcium 9.2 mg/dL (8.4-10.2); Carbon Dioxide 27 mmol/L (22-29); Chloride 106 mmol/L (96-108); Cholesterol 98 mg/dL (<200); Estimated Glomerular Filt Rate > 60; Glucose Fasting 122 mg/dL (60-99); HDL Cholesterol 30 mg/dL (>40); Iron 125 mcg/dL (45-160); LDL Cholesterol Calculated 57 mg/dL (<100); Percent Iron Saturation 57 % (15-50); Sodium 140 mmol/L (135-145); Total Iron Binding Capacity 219 mcg/dL (228-428); Triglycerides 55 mg/dL (<150); Unsaturated Iron Binding 94 ug/dL
== END 2024-04-15 08:33 | disposition home or self-care (01) ==
LOC: HO.HMGCLDS 08:32
PROVIDERS: PCP Internal Medicine; Visit Provider Internal Medicine
DX: E11.9 Type 2 diabetes mellitus without complications (principal); D64.9 Anemia, unspecified; D69.6 Thrombocytopenia, unspecified; I10 Essential (primary) hypertension; E78.5 Hyperlipidemia, unspecified
CPT/HCPCS: 36415; 80048; 80061; 83036; 83540; 84450; 84460; 85025

== ENCOUNTER 2024-04-22 12:50 | Outpatient (AMB) | payer MEDICARE, SELFPAY ==
[2024-04-22 13:13] VITALS: BP 106/62; PULSE 93; O2SAT 98; BMI 34.7
--- NOTE | 2024-04-22 13:13 | A.OFFPC_ITS ---
Vital Signs 04/22/24 13:13 Height 5 ft 10 in Weight 242 lb BMI 34.7 BP 106/62 Blood Pressure Location Rt brachial Position Sitting Pulse 93 Pulse Source Pulse Oximeter Pulse Oximetry (%) 98 Oxygen Delivery Method Room Air Intake Visit Reasons: 4 month follow up Intake Note: Pt is here today for his 4 mo. f/u DM Allergies cephalexin [Keflex] Allergy (Intermediate, Verified 04/28/24 19:22) hives levofloxacin Allergy (Intermediate, Verified 04/28/24 19:22) Hives cetirizine [From Zyrtec] Adverse Reaction (Intermediate, Verified 04/28/24 19:22) Fatigue Medication List - Last Reconciled 04/28/24 by Latoya Lopez MD apixaban (Eliquis) 5 mg PO BID blood sugar diagnostic (LabfolderTouch Verio test strips) use 1 strip once a day to test blood sugar blood-glucose meter (LabfolderTouch Verio Flex Meter) As directed Bydureon BCise ER (exenatide microspheres) 2 mg (0.85 mL) subcut QWEEK 3 months NS ferrous sulfate 325 mg PO DAILY furosemide 40 mg PO DAILY glipizide ER 2.5 mg PO QAM lancets (Accu-Chek Softclix Lancets) use 1 lancet daily to test blood sugar lisinopril 20 mg PO DAILY metformin 1,000 mg PO BID metoprolol tartrate 50 mg PO BID sildenafil (Viagra) 100 mg PO .prn 90 days simvastatin 20 mg PO BEDTIME tamsulosin 0.4 mg PO DAILY 90 days Tobacco use date assessed: 12/28/23 Fall risk assessment: No Falls in past year Last assessed Fall Risk: 04/22/24 Dental Screening Dental Screen Date: 04/22/24 Did you have a dental visit in the last 12 months?: Yes Did you have a dental problem in the last 6 months where you did not have access to dental care?: Yes Was dental information given to patient?: Patient has dentist HPI 4 month follow up HPI Details 78 year-old male with diabetes mellitus, hypertension, dyslipidemia and normocytic normochromic anemia , here for his follow-up. Has been compliant with taking his medications, no complaints at present time. Latest fasting labs showed presence of normocytic normochromic anemia with mild iron deficiency, hemoglobin A1c is at 5.8% with a fasting lipid panel liver enzymes renal function all within normal limits. 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 Social History Household Members: None Housing: House Are you a primary personal caregiver to a significant other at home: No Do you presently have visiting nurse or other home services: No Patient Tobacco Use Status: Never used Tobacco e-Cigarette/Vaping Use: Never Used Second Hand Smoke Exposure: Yes service: No Current occupational status: retired Cognitive needs: No Hearing needs: No Vision needs: Yes Questionnaire PHQ-9 Over the last 2 weeks, how often have you been bothered by any of the following problems? 1. Little interest or pleasure in doing things: not at all 2. Feeling down, depressed, or hopeless: not at all 3. Trouble falling or staying asleep, or sleeping too much: not at all 4. Feeling tired or having little energy: not at all 5. Poor appetite or overeating: not at all 6. Feeling bad about yourself - or that you are a failure or have let yourself or your family down: not at all 7. Trouble concentrating on things, such as reading the newspaper or watching television: not at all 8. Moving or speaking so slowly that other people could have noticed. Or the opposite - being so fidgety or restless that you have been moving around a lot more than usual: not at all 9. Thoughts that you would be better off or of hurting yourself in some way: not at all Total score: 0 Depression Screening Interpretation: Negative Source: Developed by Drs. Isma Davidson, Radha Sumner, Bobby Reyes and colleagues, with an educational gina from [employer]. Thrive Questionnaire Date Thrive assessed: 12/28/23 I am a: Patient What is your living situation today?: I have a steady place to live Within the past 12 months, did the food you bought not last and you didn't have the money to get more?: Never true Within the past 12 months, did you worry whether your food would run out before you got money to buy more?: Never true Do you have trouble paying for medicines?: No Do you have trouble getting transportation to medical appointments?: No Do you have trouble paying your heating and electricity bill?: No Do you have trouble taking care of your child, family member or friend?: No Do you have trouble with day-to-day activities such as bathing, preparing meals, shopping, managing finances, etc.?: No Are you currently unemployed and looking for a job?: No Are you interested in more education?: No Please select the resources that you would like help with: None Currently or been in a relationship where the following occur: No concerns reported THRIVE Score: 0 AUDIT C Alcohol Use Questionnaire (AUDIT-C) 1. How often do you have a drink containing alcohol?: Never Total Score: 0 MARY-7 AMB Questionnaire MARY-7 Date MARY - 7 assessed: 12/28/23 Feeling nervous, anxious, or on edge: 0 = Not at all Not being able to stop or control worryin = Not at all Worrying too much about different things: 0 = Not at all Trouble relaxin = Not at all Being so restless that it is hard to sit still: 0 = Not at all Becoming easily annoyed or irritable: 0 = Not at all Feeling afraid as if something awful might happen: 0 = Not at all Total MARY-7 score (0-4 normal; 5-9 mild; 10-14 moderate; 15-21 severe): 0 Source: Developed by Drs. Isma Davidson, Radha Sumner, Bobby Reyes and colleagues, with an educational gina from [employer]. Review of Systems Const Denies weakness Eyes Details: Goes to [facility] for his diabetes retinopathy screening and eye exam ENT Reports Normal hearing present and Denies dizziness Card Denies chest pain, Denies chest pain with activity, Denies syncope, Denies rapid heart rate, Denies pedal edema, Denies edema, Denies leg edema, Denies lightheadedness, Denies palpitations, Denies dyspnea, Denies dyspnea on exertion and Denies orthopnea Resp Denies cough, Denies dyspnea and Denies dyspnea on exertion GI Denies hematochezia and Denies change in stool character Reports no additional complaints Musc Denies abnormal gait, Denies muscle cramps, Denies muscle weakness, Denies numbness, Denies radiating pain into limb and Denies tingling Neuro Reports Normal hearing present, Denies abnormal gait, Denies dizziness, Denies syncope, Denies numbness, Denies Sensory deficit (Neuro), Denies tingling and Denies weakness Endo Denies palpitations Ulysses/Lymph Reports no additional complaints Physical exam (Primary Care) Vital Signs: Last Vital Signs Pulse 93 04/22/24 13:13 BP 106/62 04/22/24 13:13 Pulse Ox 98 04/22/24 13:13 Oxygen Delivery Method Room Air 04/22/24 13:13 BMI result Body Mass Index 34.7 Tobacco/Smoking Status: Tobacco use Status Tobacco use date assessed 12/28/23 04/22/24 13:16 Patient Tobacco Use Status Never used Tobacco 04/22/24 13:16 e-Cigarette/Vaping Use Never Used 04/22/24 13:16 PHQ-9: PHQ-9 Score PHQ-9: Total score 0 04/22/24 13:40 Depression Screening Interpretation: Negative Thrive Assessment: Date of Thrive Assessment Date Thrive assessed 12/28/23 04/22/24 13:16 Currently or been in a relationship where the following occur: No concerns reported Const General: comfortable and no acute distress Orientation/consciousness: patient oriented x3 HENMT Ears: hearing grossly normal bilaterally and external ears normal General nose exam: Normal external nose present Mouth: oropharynx normal and moist mucous membranes Eyes Conjunctivae: conjunctivae normal Pupils: Equal, round and reactive pupils present EOM: EOMs intact bilaterally Neck Neck: Yes full ROM, Yes no lymphadenopathy and Yes supple Resp Effort & Inspection: normal respiratory effort and able to speak in complete sentences Auscultation: clear to auscultation bilaterally Cardio Rate: regular rate Rhythm: regular rhythm Heart sounds: S1 normal heart sound present and S2 normal heart sound present GI Inspection: Yes normal to inspection Palpation (GI): Soft to palpation, nontender and no masses Auscultation: normal bowel sounds General: Yes no CVA tenderness Back/Spine/Pelvis Back: no CVA tenderness and No back tenderness Skin General skin exam: dry skin Neuro General: patient oriented x3, gait normal, tone normal, moves all extremities, Normal light touch and pain sensation and no focal motor deficits Cranial nerves: Yes Equal, round and reactive pupils present and Yes Normal hearing present Cognition (Neuro): normal cognition Gait exam (Neuro): Normal gait present Motor exam (neuro): 5/5 motor strength present throughout Sensory Exam: No Sensory deficit (Neuro) Extrem General: Yes full ROM, Yes no joint enlargement, Yes no clubbing, cyanosis or edema, Yes no calf tenderness and Yes normal gait Psych Appearance: grossly normal and well kempt Mental Status: mental status grossly normal Speech and movement: Normal speech and movement present Affect: normal affect Attitude: cooperative Results Reviewed Results Reviewed: me: Alireza Gabriel Age/Sex: 78/M : 1945 Unit#: [id number] Attend Dr: Latoya Lopez MD Re04/15/24 Status: DEP REF Location: [facility] Disch: SPEC : [id number] CHRISTIAN: 04/15/24 STATUS: COMP REQ : [id number] RECD: 04/15/[address]: Latoya Lopez MD COMP: 04/15/24 ENTERED: 04/15/24 [facility] [address]: ORDERED: CBC Auto Diff Test Result Flag Reference WBC 5.5 4.8-10.8 X10*3/uL RBC 4.08 L 4.60-5.80 X10*6/uL HGB 11.6 L 14.0-18.0 g/dl HCT 35.4 L 42.0-52.0 % MCV 86.8 80.0-98.0 fL MCH 28.4 27.0-33.0 pg MCHC 32.8 31.0-36.0 g/dl RDW 24.8 H 11.0-16.0 % PLT 164 160-400 X10*3/uL Neut Pct Auto 71.0 45-73 % ImGran Pct Auto 0.2 0.0-0.4 % Lymp Pct Auto 18.4 L 20-40 % [place] Pct Auto 7.8 2-11 % Eos Pct Auto 1.5 0-4 % Baso Pct Auto 1.1 0-2 % NRBC Pct Auto 0.0 0.0-0.2 /100WBC ANC Neut Abs # 3.9 2.0-8.3 x10*3/uL ImGran Abs Auto 0.01 0.00-0.03 X10*3/uL Lymph Abs Auto 1.0 L 1.2-4.9 X10*3/uL [place] Abs Auto 0.4 0.1-1.2 X10*3/uL Eos Abs Auto 0.1 0.0-0.4 X10*3/uL Baso Abs Auto 0.1 0.0-0.2 X10*3/uL NRBC Abs Auto 0.000 0.0-0.012 X10*3/uL Name: Alireza Gabriel Age/Sex: 78/M : 1945 Unit#: [id number] Attend Dr: Latoya Lopez MD Re04/15/24 Status: DEP REF Location: [facility] Disch: SPEC : [id number] CHRISTIAN: 04/15/24 STATUS: COMP REQ : [id number] RECD: 04/15/[address] [facility] [address]: Latoya Lopez MD COMP: 04/15/24 ENTERED: 04/15/24 [facility] [address]: ORDERED: Met Prof Fast, IRON PROF, AST, ALT, Lipid Panel Test Result Flag Reference Sodium 140 135-145 mmol/L Potassium 4.0 3.3-5.1 mmol/L CL 106 96-108 mmol/L CO2 27 22-29 mmol/L Gap 11 L 12-20 BUN 16 9-16 mg/dL Creat 0.96 0.5-1.4 mg/dL EGFR > 60 NOTE: For -Cypriot individuals, multiply the result by 1.210. Chronic Kidney Disease: Estimated GFR < 60 mL/min/1.73m2 Severe Kidney Disease: Estimated GFR < 15 mL/min/1.73m2 FBS 122 H 60-99 mg/dL A fasting glucose from 100-125 mg/dl is considered impaired (pre-diabetes). CA 9.2 8.4-10.2 mg/dL Iron 125 45-160 mcg/dL TIBC 219 L 228-428 mcg/dL Saturation 57 H 15-50 % UIBC 94 ug/dL AST (GOT) 10 5-37 U/L ALT (GPT) 13 0-40 U/L Triglyceride 55 <150 mg/dL Desirable Triglyceride: less than 150 mg/dL Borderline High Triglyceride 150-199 mg/dL High Triglyceride: 200-499 mg/dL Very High Triglyceride: greater than or equal to 5OO mg/dL Cholesterol 98 <200 mg/dL Desirable Cholesterol: less than 200 mg/dL Borderline High Cholesterol: 200-239 mg/dL High Cholesterol: greater than 239 mg/dL LDL Calculated 57 <100 mg/dL Desirable LDL: less than 100 mg/dL Near Optimal/Above Optimal LDL: 110-129 mg/dL Borderline High LDL: 130-159 mg/dL High LDL: 160-189 mg/dL Very High LDL: greater than or equal to 190 mg/dL HDL 30 L >40 mg/dL Desirable HDL: greater than 40 mg/dL Note: This HDL assay may give artificially low results in patients with liver disease. Laboratory Tests 04/15/24 08:35 Estimat Average Glucose 120 Hemoglobin A1c % 5.8 Coding Level of Care Code Est Pt Level 4 (61561) Complex EM visit Add On G2211 Diagnoses Type 2 diabetes mellitus without complication, with no history of insulin use E11.9 Normocytic anemia D64.9 Dyslipidemia E78.5 Essential hypertension I10 Assessment & Plan Assessment & Plan (1) Type 2 diabetes mellitus without complication, with no history of insulin use: Code(s): E11.9 - Type 2 diabetes mellitus without complications Category: Medical Plan: Diabetes mellitus well controlled, with hemoglobin A1c at 5.8%. Continued on Bydureon once a week, glipizide ER 2.5 mg daily in a.m. with breakfast and metformin a 1000 mg 1 tablet twice a day. Up-to-date with his diabetes retinopathy screening, up-to-date with his vaccinations (2) Normocytic anemia: Code(s): D64.9 - Anemia, unspecified Category: Medical Plan: Continued on ferrous sulfate 325 mg taken once a day. Patient cautioned that medicine may cause constipation, take [id number] Colace or docusate sodium 100-200 mg once a day as needed for constipation (3) Dyslipidemia: Code(s): E78.5 - Hyperlipidemia, unspecified Category: Medical Plan: Fasting lipids are within normal limits, continued on simvastatin 20 mg at bedt yehuda. (4) Essential hypertension: Code(s): I10 - Essential (primary) hypertension Category: Medical Plan: Blood pressure at goal of less than 130/80. Continue lisinopril 20 mg daily and furosemide 40 mg daily in a.m. as well as metoprolol tartrate 50 mg 1 tablet twice a day. Reinforced importance of following a low sodium diet, getting regular exercise, and lowering stress levels. Orders: Orders Complete Blood Count Auto Diff 07/27/24 D64.9 - Anemia, unspecified, E11.9 - Type 2 diabetes mellitus without complications, E78.5 - Hyperlipidemia, unspecified, I10 - Essential (primary) hypertension Lipid Panel 07/27/24 D64.9 - Anemia, unspecified, E11.9 - Type 2 diabetes mellitus without complications, E78.5 - Hyperlipidemia, unspecified, I10 - Essential (primary) hypertension Alanine Aminotransferase 07/27/24 D64.9 - Anemia, unspecified, E11.9 - Type 2 diabetes mellitus without complications, E78.5 - Hyperlipidemia, unspecified, I10 - Essential (primary) hypertension Microalbumin, Random (w Creat) 07/27/24 D64.9 - Anemia, unspecified, E11.9 - Ty pe 2 diabetes mellitus without complications, E78.5 - Hyperlipidemia, unspecified, I10 - Essential (primary) hypertension IRON PROFILE 07/27/24 D64.9 - Anemia, unspecified, E11.9 - Type 2 diabetes mellitus without complications, E78.5 - Hyperlipidemia, unspecified, I10 - Essential (primary) hypertension Hemoglobin A1c 07/27/24 D64.9 - Anemia, unspecified, E11.9 - Type 2 diabetes mellitus without complications, E78.5 - Hyperlipidemia, unspecified, I10 - Essential (primary) hypertension Aspartate Amino Transferase 07/27/24 D64.9 - Anemia, unspecified, E11.9 - Type 2 diabetes mellitus without complications, E78.5 - Hyperlipidemia, unspecified, I10 - Essential (primary) hypertension Basic Metabolic Panel Fasting 07/27/24 D64.9 - Anemia, unspecified, E11.9 - Type 2 diabetes mellitus without complications, E78.5 - Hyperlipidemia, unspecified, I10 - Essential (primary) hypertension Vitamin D 25-OH Total 07/27/24 D64.9 - Anemia, unspecified, E11.9 - Type 2 diabetes mellitus without complications, E78.5 - Hyperlipidemia, unspecified, I10 - Essential (primary) hypertension Vitamin B12 and Folate 07/27/24 D64.9 - Anemia, unspecified, E11.9 - Type 2 diabetes mellitus without complications, E78.5 - Hyperlipidemia, unspecified, I10 - Essential (primary) hypertension
== END 2024-04-22 13:41 | disposition home or self-care (01) ==
PROVIDERS: PCP Internal Medicine; Visit Provider Internal Medicine
DX: E11.9 Type 2 diabetes mellitus without complications (principal); D64.9 Anemia, unspecified; E78.5 Hyperlipidemia, unspecified; I10 Essential (primary) hypertension

== ENCOUNTER → 2024-04-22 12:50 | Outpatient (BNVA) | payer MEDICARE, SELFPAY | PROVIDERS: PCP Internal Medicine; Visit Provider Internal Medicine | DX: E11.9 Type 2 diabetes mellitus without complications (principal); D64.9 Anemia, unspecified; E78.5 Hyperlipidemia, unspecified; I10 Essential (primary) hypertension; Z79.84 Long term (current) use of oral hypoglycemic drugs; Z79.899 Other long term (current) drug therapy | CPT/HCPCS: 96127; 99212 ==

== ENCOUNTER 2024-08-15 08:19 | Outpatient (REF) | payer MEDICARE, SELFPAY ==
--- OUTSIDE RECORDS SUMMARY | 2024-08-15 08:26 | XMS_ITS ---
Author Organization [facility] Address [address] [place] [address] Care Team Providers Care Horse Racing Analyst Name Role Phone John PENNY, Latoya Negrete Primary Care Provider Un available Black, Francine Unavailable [phone] Allergies Allergen (clinical drug ingredient) Drug/Non Drug Allergy documented on EMR Reaction Allergy Type Onset Date Status Ceftin rash Drug Allergy Active Keflex Unknown Drug Allergy Active cefaclor Cefaclor rash Drug Allergy Active REASON FOR VISIT At Risk Footcare, Painful Toe(s) Medications Medication SIG (Take, Route, Frequency, Duration) Notes Start Date End Date Status Eliquis 5 MG as directed Orally Active Ammonium Lactate 12 % 1 application Exte rnally Twice a day for 30 days Active Doxycycline Hyclate 100 MG 1 tablet Orally Once a day for 10 day(s) 03/26/2020 Not-Taking Bactrim DS 800-160 MG 1 tablet Orally Tw ice a day for 10 day(s) 01/30/2020 Not-Taking Cipro 500 MG 1 tablet Orally ever y 12 hrs for 10 day(s) Not-Taking Actos Active Flomax Active Metoprolol Tartrate 25 MG Orally Active glyBURIDE Active Enablex Active Simvastatin 5 MG 1 tablet every eveni ng Orally Once a day for 30 day(s) Active Loprox Active Lisinopril Active Social History Tobacco Use: Social History Observation Description Date Details (start date - stop date) Never Smoker NA - NA Tobacco Use/Smoking Question Answer Notes Are you a: nonsmoker Additional Findings: Tobacco Non-User Current no n-smoker Tobacco use other than smoking: Question Answer Notes Are you an other tobacco user? No Vital Signs Height 5 ft 10 in in 02/26/2024 Weight 242 lbs 02/26/2024 BMI 34.72 kg/m2 02/26/2024 Blood pressure systolic 120 mm Hg 02/26/20 Blood pressure diastolic 70 mm Hg 024 Procedures Procedure Date Ordered Date Performed Result Body Sit e 72537-CFMBECE NAIL, 6 OR MORE 02/26/2024 N/A 01085-Laleacjm Plate 02/26/2024 N/A 23773-VUNK SKIN LESIONS, OVER 4 02/26/2024 N/A Encounters Encounter Location Date Provider Diagnosis [facility] [place] [address] [place] [address] 02/26/2024 Francine Ibrahim Type 2 diabetes mellitus with diabetic polyneuropathy E11.42 ; Tinea unguium B35.1 and Ingrown nail L60.0 Assessments Encounter Date Diagnosis (ICD Code) Assessment Notes Treatment Notes Treatment Clinical Notes Section Notes 02/26/2024 Type 2 diabetes mellitus with diabetic polyneuropathy (ICD-10 - E11.42) 02/26/2024 Tinea unguium (ICD-10 - B35.1) 02/26/2024 Ingrown nail (ICD-10 - L60.0) Plan Of Treatment Pending Test Test Name Order Date 61834-EVXJFPK NAIL, 6 OR MORE 02/26/2024 35078-Xrvzrcts Plate 02/26/2024 97369-UQYB SKIN LESIONS, OVER 4 02/26/20 24 Next Appt Details Follow Up: 2 Weeks, Reason: Provider Name:Francine Ibrahim , 09/09/2024 09:15:00 AM, [address] [place] [address], [phone], Procedure Notes * Category Sub-Category Detail Notes Nail Avulsion Procedure A fine sterile e levator was placed between the eponychium, nail fold, and nail plate to separate the structures. A sterile nail splitter, and/or sterile 316 blade, was then used to longitudinally section the nail along its entire length through the eponychium to the area under the nail fold. The offending portion of nail was from the nail bed with a rolling action and then removed with a hemostat. No underlying bone was identified. There was minimal bleeding as hemostasis was achieved through the temporary use of either a digital tourniquet or the aforementioned local with epinephrine. A bacitracin sterile dressing was applied. Local wound aftercare instructions were discussed and dispensed. The patient was informed of both conservative and future surgical procedures to prevent recurrence. Tylenol or Motrin was recommended for pain or discomfort (74020) , DIABETES: Matricectomy deferred at this time due to diabetes risk Anesthesia was deferred - NEURO NANCY: patient has medically documented neuropathic condition affecting sensation Location Medial nail border, T5, Debride Nail 6-10 Nail debridement Nail debridem ent performed extensively to reduce/remove overall nail length and girth, subungual debris, and necrotic tissue, by manual and electrical means with use of a nail nipper and/or dremel, to more viable healthy nail plate or bed tissue 6-10. Silver nitrate used for any petechial bleeding as necessary. Patient chooses, no pharmaceutical tx (03796) Keratoma Treatment Parring or Cutting o f Benign Hyperkeratotic Lesion(s) 24434 ( >4 Lesions) - The Benign hyperkeratotic lesions, as described above were pared, and/or cut utilizing a sterile #15 blade, tissue nippers, and/or dremel Progress Notes * Alireza ROWAN MDOB: 4 (78 yo M)Acc No.[id number]:02/26/2024 Progress Note Patient:?Alireza Rowan Provider:?Francine Ibrahim DPM :1945???Age:78 Y???Sex:Male Simón e:02/26/2024 Address:[address] [place] [id number] Pcp:Amol Yepez Subjective: * Chief Complaints: * ???At Risk FootcarePainful T oe(s) * HPI: ???At Risk footcare:?Pt States Last PCP Visit:?Date?02/05/2024 * Medical History:? * Surgical History:?left knee arthroscopy 1996left knee replacement 08/28/2012 * Hospitalization/Major Diagno stic Procedure:?Denies Past Hospitalization * Family History:?Mother: dece ased, diagnosed with Diabetic - NIDDM.?Father: .?Daughter(s): alive.?Son(s): alive.?Paternal aunt: cancer.?Spouse: alive.?4 son(s) , 1 daughter(s) . .? * Social History:?Tobacco Use:?Tobacco Use/Smoking?Are you a:?nonsmoker ?Additional Findings: Tobacco Non-User?Current non-smoker ?Tobacco use other than smoking?Are you an other tobacco user??No ???Miscellaneous:?Caffeine: yes, frequency:, 2 cups per day. ?Children: yes, 5. ?Exercise: yes, walking. ?Marital status: , . 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 * Medications:?TakingSimvastat in 5 MG Tablet 1 tablet every evening Orally Once a dayLoprox Lisinopril glyBURIDE Enablex Actos Flomax Metoprolol Tartrate 25 MG Tablet Orally Eliquis 5 MG Tablet as directed Orally Ammonium Lactate 12 % Cream 1 application Externally Twice a dayTaking Simvastatin 5 MG Tablet 1 tablet every evening Orally Once a dayTaking Loprox Taking Lisinopril Taking glyBURIDE Taking Enablex Taking Actos Taking Flomax Taking Metoprolol Tartrate 25 MG Tablet Orally Taking Eliquis 5 MG Tablet as directed Orally Taking Ammonium Lactate 12 % Cream 1 application Externally Twice a dayNot-Taking/PRNDoxycycline Hyclate 100 MG Tablet 1 tablet Orally Once a dayBactrim DS 800-160 MG Tablet 1 tablet Orally Twice a dayCipro 500 MG Tablet 1 tablet Orally every 12 hrsMedication List reviewed and reconciled with the patientNot-Taking/PRN Doxycycline Hyclate 100 MG Tablet 1 tablet Orally Once a dayNot-Taking/PRN Bactrim DS 800-160 MG Tablet 1 tablet Orally Twice a dayNot-Taking/PRN Cipro 500 MG Tablet 1 tablet Orally every 12 hrsMedication List reviewed and reconciled with the patient * Allergies:?Ceftin: rashCefac micaela: rashKeflexyes[Allergies Verified] Objective: * Vitals:?Ht: 5 ft 10 in, Wt: 242, BMI: 34.72, Shoe size: 11EEE, BP: 120/70 mm Hg, BS: 110, Ht-cm: 177.8 cm, Wt-k.77 kg. * ???Past Orders: ???Lab:HEMOGLOBIN A1C (GLYCO HEMOGLOBIN) (Order Date - 08/03/2023) (Collection Date - 08/03/2023) ? Value Reference Range ?HEMOGLOBIN A1C % (HH) 6.0 * Examination: ???Ophthalmology Referral: ?DIABETES EYE EXAM?Dermatologic: ?SKIN FINDINGS:?Skin exam reveals Keratotic lesion(s) located at, SUB MTH (s),1,5, B/L Heel(s) Right , ,?.?Vascular: ?DP PULSES:? 2/4, B/L ,.?PT PULSES:? 2/4, B/L.?Neurological: ?SENSORY:?Neurological exam demonstrates, reduced light touch sensation, Cont. reduced sharp/dull discrimination , reduced vibration sensation, 5.07 monofilament test performed at plantar aspects of 5 varied sites per foot shows sensation, absent, at Forefoot, B/L ,.?Nails: ?NAILS are:?Elongated, overgrown, dystrophic, lytic, greater than 3mm thick, discolored and friable with crumbly malodorous subungual debris, with dull to no pain on palpation due to neuropathy, , 1-5 Left foot , 2-5 Right foot?.?Ingrown Nail: ?INSPECTION:?Reveals nail incurvation, dull pain on palpation due to neuropathy, groove hypertrophy , , Medial nail border , , T5.? Assessment: * Assessment: 1.?Type 2 diabetes mellitus with diabetic polyneuropathy - E11.42 (Primary)?2.?Tinea unguium - B35.1?3.?Ingrown nail - L60.0? Plan: * Treatment: 2.?Tinea unguium?Procedure: 13593-DTEHIGF NAIL, 6 OR MORE 3.?Ingrown nail?Procedure: 63288-Enayrbbi Plate * Procedures:?Debride Nail 6-10:?Nail debridement?Nail debridement performed extensively to reduce/remove overall nail length and girth, subungual debris, and necrotic tissue, by manual and electrical means with use of a nail nipper and/or dremel, to more viable healthy nail plate or bed tissue 6-10. Silver nitrate used for any petechial bleeding as necessary. Patient chooses, no pharmaceutical tx (78018).?Keratoma Treatment:?Parring or Cutting of Benign Hyperkeratotic Lesion(s)?16143 ( >4 Lesions) - The Benign hyperkeratotic lesions, as described above were pared, and/or cut utilizing a sterile #15 blade, tissue nippers, and/or dremel.?Nail Avulsion:?Location?Medial nail border, T5, ?.?Anesthesia?was deferred - NEUROPATHY: patient has medically documented neuropathic condition affecting sensation.?Procedure?A fine sterile elevator was placed between the eponychium, nail fold, and nail plate to separate the structures. A sterile nail splitter, and/or sterile 316 blade, was then used to longitudinally section the nail along its entire length through the eponychium to the area under the nail fold. The offending portion of nail was from the nail bed with a rolling action and then removed with a hemostat. No underlying bone was identified. There was minimal bleeding as hemostasis was achieved through the temporary use of either a digital tourniquet or the aforementioned local with epinephrine. A bacitracin sterile dressing was applied. Local wound aftercare instructions were discussed and dispensed. The patient was informed of both conservative and future surgical procedures to prevent recurrence. Tylenol or Motrin was recommended for pain or discomfort (48750) , DIABETES: Matricectomy deferred at this time due to diabetes risk.? * Procedure Codes:?06478 DEBRI DE NAIL, 6 OR MORE, Modifiers: XS 19329 TRIM SKIN LESIONS, OVER 4, Modifiers: XS 06197 Avulsion Plate, Modifiers: T5 * Follow Up:?2 Weeks * Images: * Sign off status: Completed true * Provider:?KAMARI JallohM Date:?2023 Generated for Floyd robertson/Marquis/eTransmitting on:?08/15/2024 08:26 AM EST History and Physical Notes * HPI (History of Present Illness) Category Sub-Category Detail Notes Category Not es At Risk footcare Pt States Last PCP Visit: Date: 4 Examination Category Sub-Category Detail Notes Category Not es Ingrown Nail INSPECTION: Reveals nail inc urvation, dull pain on palpation due to neuropathy, groove hypertrophy , , Medial nail border , , T5 Neurological SENSORY: Neurological exa m demonstrates, reduced light touch sensation, Cont. reduced sharp/dull discrimination , reduced vibration sensation, 5.07 monofilament test performed at plantar aspects of 5 varied sites per foot shows sensation, absent, at Forefoot, B/L , Dermatologic SKIN FINDINGS: Skin exam reveal s Keratotic lesion(s) located at, SUB MTH (s),1,5, B/L Heel(s) Right , , ULCER: VERRUCA: Ophthalmology Referral DIABETES EYE EXAM Diabetic Retinopa thy Screening:: Yes Findings of Diabetic Eye Exam:: no retin opathy Vascular DP PULSES (B): 2/4, B/L , PT PULSES (B): 2/4, B/L Nails NAILS are: Elongated, overg rown, dystrophic, lytic, greater than 3mm thick, discolored and friable with crumbly malodorous subungual debris, with dull to no pain on palpation due to neuropathy, , 1-5 Left foot , 2-5 Right foot
--- OUTSIDE RECORDS SUMMARY | 2024-08-15 08:26 | XMS_ITS ---
Author Organization [facility] Address [address] [place] [address] Care Team Providers Care Senior Data Scientist Name Role Phone John PENNY, Latoya Negrete Primary Care Provider Un available Black, Francine Unavailable [phone] Allergies Allergen (clinical drug ingredient) Drug/Non Drug Allergy documented on EMR Reaction Allergy Type Onset Date Status Ceftin rash Drug Allergy Active Keflex Unknown Drug Allergy Active cefaclor Cefaclor rash Drug Allergy Active REASON FOR VISIT At Risk Footcare, Ingrown nail(s) Medications Medication SIG (Take, Route, Frequency, Duration) Notes Start Date End Date Status Lisinopril Active glyBURIDE Active Enablex Active Simvastatin 5 MG 1 tablet every eveni ng Orally Once a day for 30 day(s) Active Loprox Active Cipro 500 MG 1 tablet Orally ever y 12 hrs for 10 day(s) Not-Taking Ammonium Lactate 12 % 1 application Exte rnally Twice a day for 30 days Active Doxycycline Hyclate 100 MG 1 tablet Orally Once a day for 10 day(s) 03/26/2020 Not-Taking Eliquis 5 MG as directed Orally Active Bactrim DS 800-160 MG 1 tablet Orally Tw ice a day for 10 day(s) 01/30/2020 Not-Taking Actos Active Flomax Active Metoprolol Tartrate 25 MG Orally Active Social History Tobacco Use: Social History Observation Description Date Details (start date - stop date) Never Smoker NA - NA Tobacco Use/Smoking Question Answer Notes Are you a: nonsmoker Additional Findings: Tobacco Non-User Current no n-smoker Alcohol Screen Question Answer Notes Did you have a drink containing alcohol in the p ast year? No Points 0 Interpretation Negative Tobacco use other than smoking: Question Answer Notes Are you an other tobacco user? No Vital Signs Height 5 ft 10 in in 11/13/2023 Weight 244 lbs 11/13/2023 BMI 35.01 kg/m2 11/13/2023 Blood pressure systolic 120 mm Hg 11/13/19 24 Blood pressure diastolic 60 mm Hg 024 Procedures Procedure Date Ordered Date Performed Result Body Sit e 46681-IYFGXYJ NAIL, 6 OR MORE 11/13/2023 N/A 68883-Pfgdxmme Plate 11/13/2023 N/A 02696-UNWX SKIN LESIONS, OVER 4 11/13/2023 N/A Encounters Encounter Location Date Provider Diagnosis [facility] [address] [address] 11/13/2023 Francine Ibrahim Type 2 diabetes mellitus with diabetic polyneuropathy E11.42 ; Tinea unguium B35.1 and Ingrown nail L60.0 Assessments Encounter Date Diagnosis (ICD Code) Assessment Notes Treatment Notes Treatment Clinical Notes Section Notes 11/13/2023 Type 2 diabetes mellitus with diabetic polyneuropathy (ICD-10 - E11.42) 11/13/2023 Tinea unguium (ICD-10 - B35.1) 11/13/2023 Ingrown nail (ICD-10 - L60.0) Plan Of Treatment Pending Test Test Name Order Date 45153-TMTNOLC NAIL, 6 OR MORE 11/13/2023 13392-Ujwdoqub Plate 11/13/2023 44899-WENL SKIN LESIONS, OVER 4 11/13/19 24 Next Appt Details Follow Up: 2 Weeks, Reason: Provider Name:Francine Ibrahim , 09/09/2024 09:15:00 AM, [address] [place] [address], [phone], Procedure Notes * Category Sub-Category Detail Notes [...] Motrin was recommended for pain or discomfort (59479) , DIABETES: Matricectomy deferred at this time due to diabetes risk Anesthesia was deferred - NEURO NANCY: patient has medically documented neuropathic condition affecting sensation Location Lateral nail border , T6 Debride Nail 6-10 Nail debridement Nail debridem ent performed extensively to reduce/remove overall nail length and girth, subungual debris, and necrotic tissue, by manual and electrical means with use of a nail nipper and/or dremel, to more viable healthy nail plate or bed tissue 6-10. Silver nitrate used for any petechial bleeding as necessary. Patient chooses, no pharmaceutical tx (22364) Keratoma Treatment Parring or Cutting o f Benign Hyperkeratotic Lesion(s) 58450 ( >4 Lesions) - The Benign hyperkeratotic lesions, as described above were pared, and/or cut utilizing a sterile #15 blade, tissue nippers, and/or dremel Progress Notes * Alireza ROWAN MDOB: 4 (78 yo M)Acc No.[id number]:11/13/2023 Progress Note Patient:?Alireza Rowan Provider:?Francine Ibrahim DPM :1945???Age:78 Y???Sex:Male Simón e:11/13/2023 Address:[address] [place] [phone] Pcp:Amol Yepez Subjective: * Chief Complaints: * ???At Risk FootcareIngrown n ail(s) * HPI: ???At Risk footcare:?Pt States Last PCP Visit:?Date?08/17/2023 * Medical History:? * Surgical History:?left knee arthroscopy 1996left knee replacement 08/28/2012 * Hospitalization/Major Diagno stic Procedure:?Denies Past Hospitalization * Family History:?Mother: dece ased, diagnosed with Diabetic - NIDDM.?Father: .?Daughter(s): alive.?Son(s): alive.?Paternal aunt: cancer.?Spouse: alive.?4 son(s) , 1 daughter(s) . .? * Social History:?Tobacco Use:?Tobacco Use/Smoking?Are you a:?nonsmoker ?Additional Findings: Tobacco Non-User?Current non-smoker ?Tobacco use other than smoking?Are you an other tobacco user??No ???Drugs/Alcohol:?Drugs?Have you used drugs other than those for medical reasons in the past 12 months??No ?Alcohol Screen?Did you have a drink containing alcohol in the past year??No ?Points?0 ?Interpretation?Negative ???Miscellaneous:?Caffeine: yes, frequency:, 2 cups per day. ?Children: yes, 5. ?Exercise: yes, walking. ?Marital status: , . 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 * Medications:?TakingSimvastat in 5 MG Tablet 1 [...] * Vitals:?Ht: 5 ft 10 in, Wt: 244, BMI: 35.01, Shoe size: 11EEE, BP: 120/60 mm Hg, BS: 126, Ht-cm: 177.8 cm, Wt-k.68 kg. * ???Past Orders: ???Lab:HEMOGLOBIN A1C (GLYCO [...] to neuropathy, , 1-5 Left foot , 1,3-5 Right foot?.?Ingrown Nail: ?INSPECTION:?Reveals nail incurvation, dull pain on palpation due to neuropathy, groove hypertrophy , , Medial nail border , T6.? Assessment: * Assessment: 1.?Type 2 diabetes mellitus with diabetic polyneuropathy - E11.42 (Primary)?2.?Tinea unguium - B35.1?3.?Ingrown nail - L60.0? Plan: * Treatment: 2.?Tinea unguium?Procedure: 68155-TDTFJHG NAIL, 6 OR MORE 3.?Ingrown nail?Procedure: 05397-Zkunulno Plate * Procedures:?Debride Nail 6-10:?Nail debridement?Nail debridement performed extensively to reduce/remove overall nail length and girth, subungual debris, and necrotic tissue, by manual and electrical means with use of a nail nipper and/or dremel, to more viable healthy nail plate or bed tissue 6-10. Silver nitrate used for any petechial bleeding as necessary. Patient chooses, no pharmaceutical tx (89370).?Keratoma Treatment:?Parring or Cutting of Benign Hyperkeratotic Lesion(s)?68363 ( >4 Lesions) - The Benign hyperkeratotic lesions, as described above were pared, and/or cut utilizing a sterile #15 blade, tissue nippers, and/or dremel.?Nail Avulsion:?Location?Lateral nail border , T6.?Anesthesia?was deferred - NEUROPATHY: patient has medically documented [...] Motrin was recommended for pain or discomfort (23406) , DIABETES: Matricectomy deferred at this time due to diabetes risk.? * Procedure Codes:?36551 DEBRI DE NAIL, 6 OR MORE, Modifiers: XS 21987 TRIM SKIN LESIONS, OVER 4, Modifiers: XS 53786 Avulsion Plate, Modifiers: T6 * Follow Up:?2 Weeks * Images: * Sign off status: Completed true * Provider:?Francine Ibrahim DPM Date:?2023 Generated for Floyd robertson/Marquis/eTbreanne on:?08/15/2024 08:25 AM EST History and Physical Notes * HPI (History of Present Illness) Category Sub-Category Detail Notes Category Not es At Risk footcare Pt States Last PCP Visit: Date: 4 Examination Category Sub-Category Detail Notes Category Not es Ingrown Nail INSPECTION: Reveals nail inc urvation, dull pain on palpation due to neuropathy, groove hypertrophy , , Medial nail border , T6 Neurological SENSORY: Neurological exa m demonstrates, reduced [...] to neuropathy, , 1-5 Left foot , 1,3-5 Right foot
[2024-08-15 10:24] LABS: Basophils Absolute Auto 0.1 X10*3/uL (0.0-0.2); Basophils Percent Auto 0.7 % (0-2); Eosinophils Absolute Auto 0.1 X10*3/uL (0.0-0.4); Eosinophils Percent Auto 1.1 % (0-4); Hematocrit 36.6 % (42.0-52.0); Hemoglobin 11.9 g/dl (14.0-18.0); Imm Gran Abs Auto 0.02 X10*3/uL (0.00-0.03); Imm Gran Pct Auto 0.3 % (0.0-0.4); MANUAL DIFF FLAG SCAN; Mean Corpuscular HGB Conc 32.5 g/dl (31.0-36.0); Mean Corpuscular Hemoglobin 27.7 pg (27.0-33.0); Mean Corpuscular Volume 85.3 fL (80.0-98.0); Monocytes Absolute Auto 0.5 X10*3/uL (0.1-1.2); Monocytes Percent Auto 6.4 % (2-11); Neutrophils Absolute Auto 5.7 x10*3/uL (2.0-8.3); Neutrophils Percent Auto 78.5 % (45-73); PLT CLUMP 1; Red Blood Count 4.29 X10*6/uL (4.60-5.80); Red Cell Distribution Width 23.8 % (11.0-16.0); SCAN SMEAR FLAG 1
[2024-08-15 10:27] LABS: Estimated Average Glucose 117 mg/dL; Hemoglobin A1C 121.3523 umol/L; Hemoglobin A1c % 5.7 % (<6.0); Total Hemoglobin (HGBA1C) 3106.3944 umol/L
[2024-08-15 10:35] LABS: Alanine Aminotransferase 12 U/L (0-40); Anion Gap 13 (12-20); Aspartate Amino Transferase 15 U/L (5-37); Blood Urea Nitrogen 14 mg/dL (9-16); Carbon Dioxide 23 mmol/L (22-29); Chloride 106 mmol/L (96-108); Cholesterol 107 mg/dL (<200); Estimated Glomerular Filt Rate > 60; Glucose Fasting 120 mg/dL (60-99); HDL Cholesterol 31 mg/dL (>40); Iron 99 mcg/dL (45-160); LDL Cholesterol Calculated 61 mg/dL (<100); Percent Iron Saturation 50 % (15-50); Potassium 4.3 mmol/L (3.3-5.1); Sodium 138 mmol/L (135-145); Total Iron Binding Capacity 200 mcg/dL (228-428); Triglycerides 77 mg/dL (<150); Unsaturated Iron Binding 101 ug/dL
[2024-08-15 10:39] LABS: White Blood Count 7.3 X10*3/uL (4.8-10.8)
[2024-08-15 10:45] LABS: Platelet Count 194 X10*3/uL (160-400)
[2024-08-15 10:46] LABS: SLIDE REVIEW VERIFIED
[2024-08-15 10:50] LABS: Vitamin D 25-OH Total 36.8 ng/mL (>30)
[2024-08-15 10:51] LABS: Creatinine Urine 41.14 mg/dL; Microalbumin Urine < 5.0 mg/L
[2024-08-15 11:05] LABS: Folate 4.3 ng/mL (> or = 4.0); Vitamin B12 276 pg/mL (200-900)
== END 2024-08-15 08:20 | disposition home or self-care (01) ==
LOC: HO.HMGCLDS 08:19
PROVIDERS: PCP Internal Medicine; Visit Provider Internal Medicine
DX: E11.9 Type 2 diabetes mellitus without complications (principal); D64.9 Anemia, unspecified; E78.5 Hyperlipidemia, unspecified; I10 Essential (primary) hypertension
CPT/HCPCS: 36415; 80048; 80061; 82306; 82570; 82607; 82746; 83036; 83540; 84450; 84460; 85025

== ENCOUNTER 2024-08-22 13:24 | Outpatient (AMB) | payer MEDICARE, SELFPAY ==
[2024-08-22 13:27] VITALS: BP 116/60; PULSE 61; RESP 16; TEMP 36.9; O2SAT 100; BMI 33.0
--- NOTE | 2024-08-22 13:27 | A.OFFPC_ITS ---
Vital Signs 08/22/24 13:27 Height 5 ft 10 in Weight 230 lb BMI 33.0 BP 116/60 Blood Pressure Location Lt brachial Position Sitting Respiration 16 Pulse 61 Pulse Source Pulse Oximeter Temp 98.4 F Temp Source Oral Pulse Oximetry (%) 100 Oxygen Delivery Method Room Air Intake Visit Reasons: 4 month follow up Intake Note: Pt is here today for his 4mo. f/u Allergies cephalexin [Keflex] Allergy (Intermediate, Verified 08/22/24 13:28) hives levofloxacin Allergy (Intermediate, Verified 08/22/24 13:28) Hives cetirizine [From Zyrtec] Adverse Reaction (Intermediate, Verified 08/22/24 13:28) Fatigue Tobacco use date assessed: 08/22/24 Fall risk assessment: No Falls in past year Last assessed Fall Risk: 08/22/24 Dental Screening Dental Screen Date: 08/22/24 Did you have a dental visit in the last 12 months?: Yes Did you have a dental problem in the last 6 months where you did not have access to dental care?: No Was dental information given to patient?: Patient has dentist HPI 4 month follow up HPI Details 79-year-old male with hypertension diabe heather mellitus and dyslipidemia, here today for follow-up. Currently compliant with taking his medications and following recommended diet. Has no specific complaints at present time. Latest fasting labs showed hemoglobin A1c at 5.7% with fasting lipids within normal mills its , blood pressure stable and controlled on present treatment. Noted to have normocytic normochromic anemia on latest labs done, currently on Eliquis, but denies any unusual bleeding. 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 Social History Household Members: None Housing: House Are you a primary child care centre manager to a significant other at home: No Do you presently have visiting nurse or other home services: No Patient Tobacco Use Status: Never used Tobacco e-Cigarette/Vaping Use: Never Used Second Hand Smoke Exposure: Yes service: No Current occupational status: retired Cognitive needs: No Hearing needs: No Vision needs: Yes Questionnaire PHQ-9 Over the last 2 weeks, how often have you been bothered by any of the following problems? 1. Little interest or pleasure in doing things: not at all 2. Feeling down, depressed, or hopeless: not at all 3. Trouble falling or staying asleep, or sleeping too much: not at all 4. Feeling tired or having little energy: not at all 5. Poor appetite or overeating: not at all 6. Feeling bad about yourself - or that you are a failure or have let yourself or your family down: not at all 7. Trouble concentrating on things, such as reading the newspaper or watching television: not at all 8. Moving or speaking so slowly that other people could have noticed. Or the opposite - being so fidgety or restless that you have been moving around a lot more than usual: not at all 9. Thoughts that you would be better off or of hurting yourself in some way: not at all Total score: 0 Depression Screening Interpretation: Negative Depression Screening Done: Yes 02259 - PHQ-9 Billing: Yes Source: Developed by Drs. Isma Davidson, Radha Sumner, Bobby Reyes and colleagues, with an educational gina from [employer]. Thrive Questionnaire Date Thrive assessed: 08/22/24 I am a: Patient What is your living situation today?: I have a steady place to live Within the past 12 months, did the food you bought not last and you didn't have the money to get more?: Never true Within the past 12 months, did you worry whether your food would run out before you got money to buy more?: Never true Do you have trouble paying for medicines?: No Do you have trouble getting transportation to medical appointments?: No Do you have trouble paying your heating and electricity bill?: No Do you have trouble taking care of your child, family member or friend?: No Do you have trouble with day-to-day activities such as bathing, preparing meals, shopping, managing finances, etc.?: No Are you currently unemployed and looking for a job?: No Are you interested in more education?: No Please select the resources that you would like help with: None Currently or been in a relationship where the following occur: No concerns reported THRIVE Score: 0 AUDIT C Alcohol Use Questionnaire (AUDIT-C) 1. How often do you have a drink containing alcohol?: Never Total Score: 0 MARY-7 AMB Questionnaire MARY-7 Date MARY - 7 assessed: 08/22/24 Feeling nervous, anxious, or on edge: 0 = Not at all Not being able to stop or control worryin = Not at all Worrying too much about different things: 0 = Not at all Trouble relaxin = Not at all Being so restless that it is hard to sit still: 0 = Not at all Becoming easily annoyed or irritable: 0 = Not at all Feeling afraid as if something awful might happen: 0 = Not at all Total MARY-7 score (0-4 normal; 5-9 mild; 10-14 moderate; 15-21 severe): 0 Source: Developed by Drs. Isma Davidson, Radha Sumner, Bobby Reyes and colleagues, with an educational gina from [employer]. MARY-7 Assessment Billing MARY-7 Assessment Tool: MARY-7 Assessment 77750 Review of Systems Const Denies weakness Eyes Details: Goes to [facility] for his diabetes retinopathy screening and eye exam ENT Reports Normal hearing present Card Denies chest pain, Denies chest pain with activity, Denies syncope, Denies rapid heart rate, Denies pedal edema, Denies edema, Denies leg edema, Denies lightheadedness, Denies palpitations, Denies dyspnea, Denies dyspnea on exertion and Denies orthopnea Resp Denies cough, Denies dyspnea and Denies dyspnea on exertion GI Denies hematochezia and Denies change in stool character Reports no additional complaints Musc Denies abnormal gait, Denies muscle cramps, Denies muscle weakness, Denies num bness, Denies radiating pain into limb and Denies tingling Skin/Breast Details: Currently being seen by [facility], recently underwent shaved biopsy of a lesion on right cheek Neuro Reports Normal hearing present, Denies abnormal gait, Denies syncope, Denies numbness, Denies Sensory deficit (Neuro), Denies tingling and Denies weakness Psych Reports no additional complaints Endo Denies palpitations Ulysses/Lymph Reports no additional complaints Physical exam (Primary Care) Vital Signs: Last Vital Signs Temp 98.4 F 08/22/24 13:27 Pulse 61 08/22/24 13:27 Resp 16 08/22/24 13:27 BP 116/60 08/22/24 13:27 Pulse Ox 100 08/22/24 13:27 Oxygen Delivery Method Room Air 08/22/24 13:27 BMI result Body Mass Index 33.0 Tobacco/Smoking Status: Tobacco use Status Tobacco use date assessed 08/22/24 08/22/24 13:31 Patient Tobacco Use Status Never used Tobacco 08/22/24 13:31 e-Cigarette/Vaping Use Never Used 08/22/24 13:31 PHQ-9: PHQ-9 Score PHQ-9: Total score 3 08/22/24 13:41 Depression Screening Interpretation: Negative Thrive Assessment: Date of Thrive Assessment Date Thrive assessed 08/22/24 08/22/24 13:31 Currently or been in a relationship where the following occur: No concerns reported Const General: comfortable and no acute distress Orientation/consciousness: patient oriented x3 HENMT Ears: hearing grossly normal bilaterally and external ears normal General nose exam: Normal external nose present Mouth: oropharynx normal and moist mucous membranes Eyes Conjunctivae: conjunctivae normal Pupils: Equal, round and reactive pupils present EOM: EOMs intact bilaterally Neck Neck: Yes full ROM, Yes no lymphadenopathy and Yes supple Resp Effort & Inspection: normal respiratory effort and able to speak in complete sentences Auscultation: clear to auscultation bilaterally Cardio Rate: regular rate Rhythm: regular rhythm Heart sounds: S1 normal heart sound present and S2 normal heart sound present GI Inspection: Yes normal to inspection Palpation (GI): Soft to palpation, nontender and no masses Auscultation: normal bowel sounds General: Yes no CVA tenderness Back/Spine/Pelvis Back: no CVA tenderness and No back tenderness Skin Other: Sterile bandage covering biopsy site on right cheek General skin exam: dry skin Neuro General: patient oriented x3, gait normal, tone normal, moves all extremities, Normal light touch and pain sensation and no focal motor deficits Cranial nerves: Yes Equal, round and reactive pupils present and Yes Normal hearing present Cognition (Neuro): normal cognition Gait exam (Neuro): Normal gait present Motor exam (neuro): 5/5 motor strength present throughout Sensory Exam: No Sensory deficit (Neuro) Extrem General: Yes full ROM, Yes no joint enlargement, Yes no clubbing, cyanosis or edema, Yes no calf tenderness and Yes normal gait Psych Appearance: grossly normal and well kempt Mental Status: mental status grossly normal Speech and movement: Normal speech and movement present Affect: normal affect Attitude: cooperative Results Reviewed Results Reviewed: Name: Alireza Gabriel Age/Sex: 79/M : 1945 Unit#: [id number] Attend Dr: Latoya Lopez MD Re08/15/24 Status: DEP REF Location: [facility] Disch: SPEC : [id number] CHRISTIAN: 08/15/24 STATUS: COMP REQ : [id number] RECD: 08/15/24-[address]: Latoya Lopez MD COMP: 08/15/24 ENTERED: 08/15/[address] [facility] [address]: ORDERED: CBC Auto Diff, SLIDE REVIEW Test Result Flag Reference WBC 7.3 4.8-10.8 X10*3/uL RBC 4.29 L 4.60-5.80 X10*6/uL HGB 11.9 L 14.0-18.0 g/dl HCT 36.6 L 42.0-52.0 % MCV 85.3 80.0-98.0 fL MCH 27.7 27.0-33.0 pg MCHC 32.5 31.0-36.0 g/dl RDW 23.8 H 11.0-16.0 % PLT 194 160-400 X10*3/uL Neut Pct Auto 78.5 H 45-73 % ImGran Pct Auto 0.3 0.0-0.4 % Lymp Pct Auto 13.0 L 20-40 % Morrill Pct Auto 6.4 2-11 % Eos Pct Auto 1.1 0-4 % Baso Pct Auto 0.7 0-2 % NRBC Pct Auto 0.0 0.0-0.2 /100WBC ANC Neut Abs # 5.7 2.0-8.3 x10*3/uL ImGran Abs Auto 0.02 0.00-0.03 X10*3/uL Lymph Abs Auto 1.0 L 1.2-4.9 X10*3/uL Morrill Abs Auto 0.5 0.1-1.2 X10*3/uL Eos Abs Auto 0.1 0.0-0.4 X10*3/uL Baso Abs Auto 0.1 0.0-0.2 X10*3/uL NRBC Abs Auto 0.000 0.0-0.012 X10*3/uL SLIDE REVIEW VERIFIED Name: Alireza Gabriel Age/Sex: 79/M : 1945 Unit#: [id number] Attend Dr: Latoya Lopez MD Re08/15/24 Status: DEP REF Location: [facility] Disch: SPEC : [id number] CHRISTIAN: 08/15/24 STATUS: COMP REQ : [id number] RECD: 08/15/24-[address]: Latoya Lopez MD COMP: 08/15/24 ENTERED: 08/15/[address] [facility] [address]: ORDERED: Met Prof Fast, IRON PROF, AST, ALT, Lipid Panel, Vitamin D 25-OH Test Result Flag Reference Sodium 138 135-145 mmol/L Potassium 4.3 3.3-5.1 mmol/L CL 106 96-108 mmol/L CO2 23 22-29 mmol/L Gap 13 12-20 BUN 14 9-16 mg/dL Creat 0.95 0.5-1.4 mg/dL eGFR > 60 Chronic Kidney Disease: Estimated GFR < 60 mL/min/1.73m2 Severe Kidney Disease: Estimated GFR < 15 mL/min/1.73m2 FBS 120 H 60-99 mg/dL A fasting glucose from 100-125 mg/dl is considered impaired (pre-diabetes). CA 9.0 8.4-10.2 mg/dL Iron 99 45-160 mcg/dL TIBC 200 L 228-428 mcg/dL Saturation 50 15-50 % UIBC 101 ug/dL AST (GOT) 15 5-37 U/L ALT (GPT) 12 0-40 U/L Triglyceride 77 <150 mg/dL Desirable Triglyceride: less than 150 mg/dL Borderline High Triglyceride 150-199 mg/dL High Triglyceride: 200-499 mg/dL Very High Triglyceride: greater than or equal to 5OO mg/dL Cholesterol 107 <200 mg/dL Desirable Cholesterol: less than 200 mg/dL Borderline High Cholesterol: 200-239 mg/dL High Cholesterol: greater than 239 mg/dL LDL Calculated 61 <100 mg/dL Desirable LDL: less than 100 mg/dL Near Optimal/Above Optimal LDL: 110-129 mg/dL Borderline High LDL: 130-159 mg/dL High LDL: 160-189 mg/dL Very High LDL: greater than or equal to 190 mg/dL HDL 31 L >40 mg/dL Desirable HDL: greater than 40 mg/dL Note: This HDL assay may give artificially low results in patients with liver disease. Vit D 25-OH Tot 36.8 >30 ng/mL Health Based Reference Values* < 20 ng/mL Deficient 20-30 ng/mL Insufficient > 30 ng/mL Sufficient Laboratory Tests 04/15/24 08/15/24 08/15/24 08:35 08:32 08:40 Estimat Average Glucose 120 117 Hemoglobin A1c % 5.8 5.7 Urine Creatinine 41.14 Urine Microalbumin < 5.0 Microalb/Creat Ratio TNP Coding Level of Care Code Est Pt Level 4 (36741) Complex EM visit Add On G2211 Diagnoses Essential hypertension I10 Dyslipidemia E78.5 Iron (Fe) deficiency anemia D50.9 Type 2 diabetes mellitus without complication, with no history of insulin use E11.9 Additional Codes PHQ-9 - 49889 - PHQ-9 Billing: Yes ([id number]) MARY-7 Assessment Billing - MARY-7 Assessment Tool: MARY-7 Assessment [id number] ([id number]) Assessment & Plan Assessment & Plan (1) Essential hypertension: Code(s): I10 - Essential (primary) hypertension Category: Medical Plan: Blood pressure at goal of less than 130/80. Continue with lisinopril 20 mg daily, metoprolol tartrate 50 mg 1 tablet twice a day and furosemide 40 mg daily Reinforced importance of following a low sodium diet, getting regular exercise, and lowering stress levels. (2) Dyslipidemia: Code(s): E78.5 - Hyperlipidemia, unspecified Category: Medical Plan: Reviewed recent fasting lipid profile with patient with levels within normal limits . Continue simvastatin 20 mg at bedtime , in addition to adherence to low-cholesterol diet and regular exercise, at least 30 minutes 3 to 4 times a week. Advised patient to make healthy food choices, eat more fruits, vegetables, whole grains, wild caught fish and low-fat dairy. Limit amount of meat and fried or fatty food products, as well as processed foods and fast foods. Follow-up scheduled with repeat fasting lipid panel in 3 months. (3) Iron (Fe) deficiency anemia: Code(s): D50.9 - Iron deficiency anemia, unspecified Category: Medical Plan: Restart taking ferrous sulfate 325 mg daily, will recheck CBC and iron profile i n 3 months (4) Type 2 diabetes mellitus without complication, with no history of insulin use: Code(s): E11.9 - Type 2 diabetes mellitus without complications Category: Medical Plan: Recent lab results reviewed with patient, with sugar and hemoglobin A1c stable and at goal. Continue with Bydureon, glipizide, metformin at the same dose. continue to check fasting blood sugar at home, maintain log and bring to next appointment for review. Reinforced diabetic diet and regular exercise with patient. Counseled regarding importance of yearly diabetes retinopathy screening. Patient advised to inspect feet daily, for any signs of injury, callus or infection. Compliance with diet and regular exercise again stressed. Blood pressure goal is less than 130/80, goal LDL is less than 100 and goal hemoglobin A1c is less than 7% follow-up appointment made in-3--months, after fasting labs done. Orders: Orders Complete Blood Count Auto Diff 10/31/24 D50.9 - Iron deficiency anemia, unspecified, E11.9 - Type 2 diabetes mellitus without complications, E78.5 - Hyperlipidemia, unspecified, I10 - Essential (primary) hypertension Vitamin D 25-OH Total 10/31/24 D50.9 - Iron deficiency anemia, unspecified, E11.9 - Type 2 diabetes mellitus without complications, E78.5 - Hyperlipidemia, unspecified, I10 - Essential (primary) hypertension Vitamin B12 and Folate 10/31/24 D50.9 - Iron deficiency anemia, unspecified, E11.9 - Type 2 diabetes mellitus without complications, E78.5 - Hyperlipidemia, unspecified, I10 - Essential (primary) hypertension Aspartate Amino Transferase 10/31/24 D50.9 - Iron deficiency anemia, unspecified, E11.9 - Type 2 diabetes mellitus without complications, E78.5 - Hyperlipidemia, unspecified, I10 - Essential (primary) hypertension IRON PROFILE 10/31/24 D50.9 - Iron deficiency anemia, unspecified, E11.9 - Type 2 diabetes mellitus without complications, E78.5 - Hyperlipidemia, unspecified, I10 - Essential (primary) hypertension Lipid Panel 10/31/24 D50.9 - Iron deficiency anemia, unspecified, E11.9 - Type 2 diabetes mellitus without complications, E78.5 - Hyperlipidemia, unspecified, I10 - Essential (primary) hypertension Alanine Aminotransferase 10/31/24 D50.9 - Iron deficiency anemia, unspecified, E11.9 - Type 2 diabetes mellitus without complications, E78.5 - Hyperlipidemia, unspecified, I10 - Essential (primary) hypertension Hemoglobin A1c 10/31/24 D50.9 - Iron deficiency anemia, unspecified, E11.9 - Type 2 diabetes mellitus without complications, E78.5 - Hyperlipidemia, unspecified, I10 - Essential (primary) hypertension
--- OUTSIDE RECORDS SUMMARY | 2024-08-22 14:20 | XMS_ITS ---
[facility] Organization [facility] Address [address] [place] [address] Care Team Providers Care Warehouse Inventory Clerk Name Role Phone John PENNY, Latoya Negrete Primary Care Provider Un available Black, Francine Unavailable [phone] Allergies Allergen (clinical drug ingredient) Drug/Non Drug Allergy documented on EMR Reaction Allergy Type Onset Date Status Ceftin rash Drug Allergy Active Keflex Unknown Drug Allergy Active cefaclor Cefaclor rash Drug Allergy Active REASON FOR VISIT At Risk Footcare, Swelling Medications Medication SIG (Take, Route, Frequency, Duration) Notes Start Date End Date Status Cipro 500 MG 1 tablet Orally ever y 12 hrs for 10 day(s) Not-Taking Bactrim DS 800-160 MG 1 tablet Orally Tw ice a day for 10 day(s) 01/30/2020 Not-Taking Actos Not-Taking Loprox Not-Taking Doxycycline Hyclate 100 MG 1 tablet Orally Once a day for 10 day(s) 03/26/2020 Not-Taking Enablex Active Metoprolol Tartrate 25 MG Orally Active Flomax Active Ammonium Lactate 12 % 1 application Exte rnally Twice a day for 30 days Active Eliquis 5 MG as directed Orally Active Lisinopril Active Simvastatin 5 MG 1 tablet every eveni ng Orally Once a day for 30 day(s) Active glyBURIDE Active Compression Stockings 20-30mm Hg 1 pair wear daily for 30 days Active Social History Tobacco Use: Social History Observation Description Date Details (start date - stop date) Never Smoker NA - NA Tobacco Use/Smoking Question Answer Notes Are you a: nonsmoker Additional Findings: Tobacco Non-User Current no n-smoker Tobacco use other than smoking: Question Answer Notes Are you an other tobacco user? No Vital Signs Height 5 ft 10 in in 06/03/2024 Weight 242 lbs 06/03/2024 BMI 34.72 kg/m2 06/03/2024 Blood pressure systolic 120 mm Hg 06/03/20 24 Blood pressure diastolic 68 mm Hg 024 Procedures Procedure Date Ordered Date Performed Result Body Sit e 84306-JAMIQKL NAIL, 6 OR MORE 06/03/2024 N/A 02441-MSBI SKIN LESIONS, OVER 4 06/03/2024 N/A Encounters Encounter Location Date Provider Diagnosis [facility] [address] [address] 06/03/2024 Francine Ibrahim Type 2 diabetes mellitus with diabetic polyneuropathy E11.42 ; Tinea unguium B35.1 ; Ingrown nail L60.0 and Edema, lower extremity R60.0 Assessments Encounter Date Diagnosis (ICD Code) Assessment Notes Treatment Notes Treatment Clinical Notes Section Notes 06/03/2024 Type 2 diabetes mellitus with diabetic polyneuropathy (ICD-10 - E11.42) 06/03/2024 Tinea unguium (ICD-10 - B35.1) 06/03/2024 Ingrown nail (ICD-10 - L60.0) 06/03/2024 Edema, lower extremity (ICD-10 - R60.0) Plan Of Treatment Medication Medication Name Sig Start Date Stop Date Notes Compression Stockings 20-30mm Hg 1 pair wear daily for 30 days Pending Test Test Name Order Date 81800-LDRJXRM NAIL, 6 OR MORE 06/03/2024 82244-MNSG SKIN LESIONS, OVER 4 06/03/20 24 Next Appt Details Follow Up: prn, Reason: Provider Name:Francine Ibrahim , 09/09/2024 09:15:00 AM, [address] [place], [address], Procedure Notes * Category Sub-Category Detail Notes Debride Nail 6-10 Nail debridement Performance o f this nail treatment by a nonprofessional would put this patients foot and overall health at risk. Therefore, debridement to affected nail(s), as described in exam, was performed extensively to reduce/remove overall nail length, girth, thickness, subungual debris, and necrotic tissue, by manual and/or electrical means through the use of a nail nipper and/or dremel-type pulp grinder and blender, to a more viable healthy nail plate or bed tissue 6-10 nails in total. Silver nitrate was used for any petechial bleeding as necessary. Definitive antifungal treatment options, both pharmaceutical and surgical, have been reviewed and discussed with the patient. The patient solely prefers the use of intermittent/as needed professional debridement services for their nail condition and understands the need for additional periodic treatments to maintain effectiveness in symptomatic relief - 03916 Patient chooses debridement treatmen t only; no pharmaceutical tx Keratoma Treatment Parring or Cutting o f Benign Hyperkeratotic Lesion(s) (-57) More than 4 Lesions - The Benign hyperkeratotic lesions, ( 5 ) in total, locations as stated and described in exam, were pared, and/or cut utilizing a sterile 15 blade, tissue nippers, and/or power dremel instrumentation - 07716 Progress Notes * Alireza ROWAN MDOB: 4 (79 yo M)Acc No.[id number]:06/03/2024 Progress Note Patient:?Alireza ROWAN Provider:?Francine Ibrahim DPM :1945???Age:78 Y???Sex:Male Simón e:06/03/2024 Address:[address] [place], [place] [id number] Pcp:Amol Yepez Subjective: * Chief Complaints: * ???At Risk FootcareSwelling * HPI: ???At Risk footcare:?Pt States Last PCP Visit:?Date?05/04/2024 ???Swelling:?Location:?Both feet/leg.?Duration:?several weeks.?Course:?worse.? * ROS:?General/Constitutional:?Nausea?denies.?Vomiting?denies.?Hunger Thirst?denies.?Loss appetite?denies.?Chills?denies.?Fatigue?denies.?Fever?denies.?Night Sweats?denies.?Unexplained weight loss?denies.?Ophthalmologic:?Blurred vision?denies.?Red eye?denies.?HEENTM:?Dentures?denies.?Dizziness?denies.?Glasses/contacts?admits.?Retinopathy?den ies.?Blurred/double vision?denies.?TMJ?denies.?Discharge/drainage?denies.?Implants?denies.?Hard of hearing denies.?Difficulty chewing/swallowing/speaking?denies.?Nose bleeds?denies.?Sore mouth?denies.?Swollen glands?denies.?Respiratory:?On O xygen?denies.?Pneumonia/pleurisy?denies.?Bronchitis?denies.?Emphysema?denies.?Co ughing?denies.?Cough blood?denies.?Shortness of breath?denies.?Wheezing?denies.?Cardiovascular:?Pacemaker?denies.?MVP?denies.?WPW?denies.?CHF?denies.?Heart attack?denies.?Septal defect?denies.?Rapid beat?denies.?Chest pain ?denies.?Atrial Fib.?denies.?Murmur/Palpitations?denies.?Gastrointestinal:?Hemorrhoids?denies.?Stomach/Abdominal pain?denies.?Dark blood stool?denies.?Irritable bowel ?denies.?Constipation?denies.?Diarrhea?denies.?Vomiting?denies.?Hematology:?Swelling?, admits.?Bruising?denies.?Bleeding problem?denies.?Genitourinary:?Blood urine?denies.?Frequent/Painfu/urination/bladder control?denies.?Kidney stones?denies.?Infection (UTI)?denies.?Nephropathy?denies.?Musculoskeletal:?Hammertoes?denies.?Bunions?denies.?Scoliosis/kyphosis?denies.?Muscle cramps / walking?denies.?Generalized aches and pains?denies.?Weakness?denies.?Integ.:?Shane?denies.?Scars?denies.?Corns/calluses?admits.?Ingrown nails?admits.?Painful nails?admits.?Rashes?denies.?Neurologic:?Difficulty sleeping?denies.?Bipolar?denies.?Brain disorder?denies.?Balance t rouble?denies.?Confusion?denies.?Fainting/blackouts?denies.?Headache?denies.?Jordan mors?denies.? * Medical History:? * Surgical History:?left knee arthroscopy 1996left knee replacement 08/28/2012 * Hospitalization/Major Diagno stic Procedure:?Denies Past Hospitalization * Family History:?Mother: dece ased, diagnosed with Diabetic - NIDDM.?Father: .?Daughter(s): alive.?Son(s): alive.?Paternal aunt: cancer.?Spouse: alive.?4 son(s) , 1 daughter(s) . .? * Social History:?Tobacco Use:?Tobacco Use/Smoking?Are you a:?nonsmoker ?Additional Findings: Tobacco Non-User?Current non-smoker ?Tobacco use other than smoking?Are you an other tobacco user??No * Medications:?TakingSimvastat in 5 MG Tablet 1 tablet every evening Orally Once a day Lisinopril glyBURIDE Enablex Flomax Metoprolol Tartrate 25 MG Tablet Orally Eliquis 5 MG Tablet as directed Orally Ammonium Lactate 12 % Cream 1 application Externally Twice a day Taking Simvastatin 5 MG Tablet 1 tablet every evening Orally Once a day Taking Lisinopril Taking glyBURIDE Taking Enablex Taking Flomax Taking Metoprolol Tartrate 25 MG Tablet Orally Taking Eliquis 5 MG Tablet as directed Orally Taking Ammonium Lactate 12 % Cream 1 application Externally Twice a day Not- Taking/PRNLoprox Actos Doxycycline Hyclate 100 MG Tablet 1 tablet Orally Once a day Bactrim DS 800-160 MG Tablet 1 tablet Orally Twice a day Cipro 500 MG Tablet 1 tablet Orally every 12 hrs Medication List reviewed and reconciled with the patientNot-Taking/PRN Loprox Not-Taking/PRN Actos Not-Taking/PRN Doxycycline Hyclate 100 MG Tablet 1 tablet Orally Once a day Not-Taking/PRN Bactrim DS 800-160 MG Tablet 1 tablet Orally Twice a day Not-Taking/PRN Cipro 500 MG Tablet 1 tablet Orally every 12 hrs Medication List reviewed and reconciled with the patient * Allergies:?Ceftin: rashCefac micaela: rashKeflexyes[Allergies Verified] Objective: * Vitals:?Ht: 5 ft 10 in, Wt: 242, BMI: 34.72, Shoe size: 11EEE, BP: 120/68 mm Hg, BS: 97, Ht-cm: 177.8 cm, Wt-k.77 kg. * ???Past Orders: ???Lab:HEMOGLOBIN A1C (GLYCO HEMOGLOBIN) (Order Date - 05/03/2024) (Collection Date & Time - 05/03/2024 02:52 PM) ? Value Reference Range ?TOTAL HEMOGLOBIN (HGBA1C) 5.8 * Examination: ???Ophthalmology Referral: ?DIABETES EYE EXAM?General Examination: ?GENERAL APPEARANCE:?Reveals a pleasant, alert, well nourished, well- developed, well hydrated individual, who demonstrates proper attention to hygiene/body habitus, and is in no acute distress, Pt serves as own historian for office visit today.?ORIENTED:?person, place, and time.?FOOT EXAM:?Dermatologic: ?SKIN FINDINGS:?Skin exam reveals Keratotic lesion(s) located at, SUB MTH (s),1,5, B/L Plantar Heel(s), , Right ,.?Vascular: ?DP PULSES (B):? 2/4, B/L ,.?PT PULSES (B):? 2/4, B/L.?GUERLINE'S SIGN:?absent, B/L.?PALPABLE CORDS:?absent, B/L.?Neurological: ?SENSORY:?Neurological exam demonstrates, reduced light touch [...] on palpation due to neuropathy, , 1-5 B/L.? Assessment: * Assessment: 1.?Type 2 diabetes mellitus with diabetic polyneuropathy - E11.42 (Primary)???2.?Tinea unguium - B35.1???3.?Ingrown nail - L60.0???4.?Edema, lower extremity - R60.0???Specify :Acute problem, Uncomplicated (3), Rx Management (4)??? Plan: * Treatment: 2.?Tinea unguium?Procedure: 20929-KCSELPH NAIL, 6 OR MORE 3.?Edema, lower extremity? Start Compression Stockings closed toe- knee high, 20-30mm Hg, 1 pair, wear, daily, 30 days, 2, Refills 2.?? * Procedures:?Debride Nail 6-10:?Nail debridement?Performance of this nail treatment by a nonprofessional would put this patients foot and overall health at risk. Therefore, debridement to affected nail(s), as described in exam, was performed extensively to reduce/remove overall nail length, girth, thickness, subungual debris, and necrotic tissue, by manual and/or electrical means through the use of a nail nipper and/or dremel-type pulp grinder and blender, to a more viable healthy nail plate or bed tissue 6-10 nails in total. Silver nitrate was used for any petechial bleeding as necessary. Definitive antifungal treatment options, both pharmaceutical and surgical, have been reviewed and discussed with the patient. The patient solely prefers the use of intermittent/as needed professional debridement services for their nail condition and understands the need for additional periodic treatments to maintain effectiveness in symptomatic relief - 77402.?Patient chooses ?debridement treatment only; no pharmaceutical tx.?Keratoma Treatment:?Parring or Cutting of Benign Hyperkeratotic Lesion(s)?(-57) More than 4 Lesions - The Benign hyperkeratotic lesions, ( 5 ) in total, locations as stated and described in exam, were pared, and/or cut utilizing a sterile 15 blade, tissue nippers, and/or power dremel instrumentation - 11948.? * Procedure Codes:?52642 DEBRI DE NAIL, 6 OR MORE, Modifiers: XS 17851 TRIM SKIN LESIONS, OVER 4, Modifiers: XS * Preventive Medicine:? ??Counseling:?Discussion:?-13: Office or other outpatient visit for the evaluation and management of an established patient, which required a medically appropriate history and/or examination and LOW level of DECISION MAKING for: 1 STABLE ACUTE UNCOMPLICATED PROBLEM, 2 OR MORE MINOR PROBLEMS, OR 1 STABLE CHRONIC PROBLEM, THAT POSE(S) A LOW RISK FOR MORBIDITY/MORTALITY. The visit on the day of the encounter encompassed interpreting the data and educating the patient as to the nature of their condition, treatment options available according to their individual PMH, meds, allergies, and overall health/living conditions, as well as any potential risks or complications that may occur from a failure to adhere to, and participate in, the recommended course of therapy. The discussion included a complete verbal, and/or written explanation of the examination results, any x-rays taken, the proposed diagnosis, and outline of the treatment plan. A schedule for future care needs was also explained. The patient verbalized an understanding of the instructions at this time and agreed to be an active participant in their treatment. If the patient should think of any questions or concerns after the visit, I have encouraged the patient to call the office.?Edema:?I explained to the patient the possible etiologies for Edema, including genetic, surgery, infection, medications, heart disease, kidney disease, excess dietary salt, and various cancer treatments. We discussed the risks/benefits of the treatment options available including rest, elevation, OTC compression stockings, Rx compression stockings, Unna Boot application, diet modification to limit salt intake, and Rx segmental compression boots provided the absence of CHD in the patients medical history. The advantages and disadvantages of each option were discussed and the patients questions re: risk of infection(cellulitis), medications, diet, and the daily use of compression stockings(not to be worn at night), and consistency in these home treatment regimens for optimal success were answered to their verbally confirmed satisfaction. Given the risk for vessel clotting disease, the patient was instructed to go immediately to the ER of hospital should they experience any calf pain, SOB, or discomfort. Any changes to the patients medication regimen will be performed by the PCP or patients kidney/heart/cancer specialist. The patient has elected to receive compression stockings. Such were Rxed today with instructions for use.? * Follow Up:?prn * Images: * Sign off status: Completed true * Provider:?Francine Ibrahim DPM Date:?2023 Generated for Floyd robertson/Marquis/Lorenzo on:?08/22/2024 02:20 PM EST History and Physical Notes * HPI (History of Present Illness) Category Sub-Category Detail Notes Category Not es At Risk footcare Pt States Last PCP Visit: Date: 4 Swelling Location: Both feet/leg Duration: several weeks Course: worse Examination Category Sub-Category Detail Notes Category Not es Neurological SENSORY: Neurological exa m demonstrates, reduced light touch sensation, Cont. reduced sharp/dull discrimination , reduced vibration sensation, 5.07 monofilament test performed at plantar aspects of 5 varied sites per foot shows sensation, absent, at Forefoot, B/L , Dermatologic SKIN FINDINGS: Skin exam reveal s Keratotic lesion(s) located at, SUB MTH (s),1,5, B/L Plantar Heel(s), , Right , ULCER: VERRUCA: General Examination GENERAL APPEARANCE: Reveals a pleasant, alert, well nourished, well-developed, well hydrated individual, who demonstrates proper attention to hygiene/body habitus, and is in no acute distress, Pt serves as own historian for office visit today FOOT EXAM: Lower Extremity Neurological Exa m performed:: Yes Visual exam of foot performed:: Yes Date: 06/03/2024 Sensory testing performed:: sensations d iminished Sensory and motor testing performed:: se nsations diminished Pedal pulse taking performed:: 2+ ORIENTED: person, place, and t yehuad Ophthalmology Referral DIABETES EYE EXAM Procedure Perform ed:: Yes ?Date of Exam Performed: 06/02/2023 Findings of Diabetic Eye Exam:: no retin opathy Vascular DP PULSES (B): 2/4, B/L , PT PULSES (B): 2/4, B/L GUERLINE'S SIGN: absent, B/L PALPABLE CORDS: absent, B/L Nails NAILS are: Elongated, overg rown, dystrophic, lytic, greater than 3mm thick, discolored and friable with crumbly malodorous subungual debris, with dull to no pain on palpation due to neuropathy, , 1-5 B/L
--- OUTSIDE RECORDS SUMMARY | 2024-08-22 14:20 | XMS_ITS | Patient Health Record ---
Author Organization [facility] Address [address] [place] [address] Care Team Providers Care Conveyor Line Battery Charger Name Role Phone John PENNY, Latoya Primary Care Provider Isma Vu [phone] ALLERGIES Allergen (clinical drug ingredient) Drug/Non Drug Allergy documented on EMR Reaction Allergy Type Onset Date Status levofloxacin Levofloxacin hives Drug Allergy A ctive ZyrTEC fatigue Drug Allergy Active Keflex hives Drug Allergy Active tamsulosin Flomax Unknown Drug Allergy Active REASON FOR REFERRAL No Information MEDICATIONS Medication SIG (Take, Route, Frequency, Duration) Notes Start Date End Date Status Januvia 100 MG 1 tablet Orally Once a day for 30 day(s) Active Simvastatin 10 MG 1 tablet in the even ing Orally every other evening Active Furosemide 40 MG TK 1 T PO QD Oral for 90 Active FeroSul 325 (65 Fe) MG TAKE 1 TABLET BY MOUTH DAILY Oral for 90 Not-Taking Metoprolol Succinate 25 MG 1 capsule Orally Once a day for 30 day(s) Active metFORMIN HCl 1000 MG TK 1 T PO BID WF O rally Once a day Active glipiZIDE ER 2.5 MG TK 1 T PO QD IN THE MORNING WITH ANGELA Oral 1 tablet in the morning with breakfast Active Eliquis 5 MG TK 1 T PO BID Oral f or 30 Active Bydureon 2 MG 1 Subcutaneous once a week Active IMMUNIZATIONS Vaccine Route Administration Date Status Comme nts Influenza Unknown 04/06/2020 Administered Influenza Unknown 05/19/2021 Administered Influenza Unknown 04/12/2022 Administered SOCIAL HISTORY Sex Assigned At : Social History Observation Description Sex Assigned At Unknown PROBLEMS Problem Type ICD Code Onset Dates Problem Status W/U Status Risk SNOMED Code Notes Problem Encounter for screening for malignant neoplasm of colon (Z12.11) Active confirmed 839186811 Problem History of adenomatous polyp of colon (Z86.010) Active confirmed 773571143 Problem Iron deficiency anemia (D50.9) Active confirmed Iron deficien cy anemia (15118221) Problem Preprocedural examination (Z01.818) Active confirmed 852640659 Problem History of colon polyps (Z86.010) Active confirmed History of polyp of colon (924825977) Problem Long-term use of aspirin therapy (Z79.82) Active confirmed 390691967 Problem Constipation, unspecified constipation type (K59.00) Active confirmed 24575174 Problem Other iron deficiency anemia (D50.8) Active confirmed 08650163 Problem Anticoagulant long-term use (Z79.01) Active confirmed 498067230 Problem Iron deficiency anemia, unspecified iron deficiency anemia type (D50.9) Active confirmed 58650547 Problem Mucosal abnormality of duodenum (K31.9) Active confirmed 41028654 Problem Diverticulosis of colon (K57.30) Active confirmed Diverticulosi s of colon (782482482) VITAL SIGNS Blood pressure diastolic 00 mm Hg 04/09/2024 Height 70 in 04/09/2024 Blood pressure systolic 00 mm Hg 04/09/2024 Weight 244 lbs 04/09/2024 BMI 35.01 kg/m2 04/09/2024 Encounters Encounter Location Date Provider Diagnosis [facility] [address] [place] [address] 04/09/2024 Isma Yepez Iron deficiency anemia D50.9 ASSESSMENTS Encounter Date Diagnosis Assessment Notes Treatment Notes Treatment Clinical Notes 04/09/2024 Iron deficiency anemia (ICD-10 - D50.9) PLAN OF TREATMENT Pending Test Test Name Order Date IRON + IBC (FE) 04/12/2022 IRON + IBC (FE) 10/04/2021 IRON + IBC (FE) 08/08/2023 VITAMIN B12 AND FOLATE 10/04/2021 VITAMIN B12 AND FOLATE 08/08/2023 CBC w DIFF 04/12/2022 CBC w DIFF 10/04/2021 CBC w DIFF 08/08/2023 CELIAC PANEL #10 08/08/2023 CELIAC PANEL #10 09/17/2021 Ferritin 10/04/2021 Future Test Test Name Order Date COLONOSCOPY 08/27/2013 COLONOSCOPY 03/21/2017 COLONOSCOPY 04/07/2020 UPPER GI ENDOSCOPY 08/06/2021 COLONOSCOPY 08/06/2021 Next Appt Details Provider Name:Isma Yepez , 04/08/2025 09:30:00 AM, [address] [facility], [address], [place], [address], Insurance Providers Payer Name Payer Address Payer Phone Subscriber Number Group Number Insured Name Patient Relationship to Insured Coverage Start Date Coverage End Date [facility] [address] [address] [place] [address] [id number] ALIX ROWAN Self - patient is the insured MEDICAL (GENERAL) HISTORY Medical History History ICD Code Colonoscopy 07-20-2007 and 2003--tubular adenomas removed Hyperlipidemia NIDDM Hypertension Denies ID,CVA,Lung disease,renal disease BPH Colonoscopy in 04/2013 with the removal of a large tubulovillous adenoma in the very proximal ascending colon. Colonoscopy in 12/2013 was ne gative except for diverticulosis and internal hemorrhoids Atrial fibrillation--Dr. Keller Colonoscopy in 06/2017 with removal of a tubulovillous adenoma from the distal rectum Colonoscopy in 05/2020 with removal of 2 tubular adenomas, but there was a relatively poor prep Iron deficiency anemia--he u nderwent an upper endoscopy and colonoscopy in August of 2021. His colonoscopy was unremarkable. The upper endoscopy revealed duodenal biopsies consistent with possible underlying celiac disease with some villous blunting and increased intraepithelial lymphocytes. Followup laboratories for celiac disease were negative. He was not started on a gluten-free diet as he was otherwise asymptomatic. He was started on iron supplements. Surgical History Surgery Date(Month/Year) Left knee replacement in 08/2012 Deviated septum
--- OUTSIDE RECORDS SUMMARY | 2024-08-22 14:20 | XMS_ITS | Patient Health Record ---
[facility] Organization [facility] Address [address] [place] [address] Care Team Providers Care Head Of Design Name Role Phone John PENNY, Latoya Negrete Primary Care Provider Un available Black, Francine Unavailable [phone] Allergies Allergen (clinical drug ingredient) Drug/Non Drug Allergy documented on EMR Reaction Allergy Type Onset Date Status Ceftin rash Drug Allergy Active Keflex Unknown Drug Allergy Active cefaclor Cefaclor rash Drug Allergy Active Results Component Value Reference Range Notes HEMOGLOBIN A1C (GLYCOHEMOGLO BIN) Reviewed date:06/03/2024 02:53:10 PM Interpretation: Performing Lab: Notes/Report: TOTAL HEMOGLOBIN (HGBA1C) 5.8 Reason For Referral No Information Medications Medication SIG (Take, Route, Frequency, Duration) Notes Start Date End Date Status Lisinopril Active Cipro 500 MG 1 tablet Orally ever y 12 hrs for 10 day(s) Not-Taking Simvastatin 5 MG 1 tablet every eveni ng Orally Once a day for 30 day(s) Active Bactrim DS 800-160 MG 1 tablet Orally Tw ice a day for 10 day(s) 01/30/2020 Not-Taking Enablex Active glyBURIDE Active Metoprolol Tartrate 25 MG Orally Active Flomax Active Ammonium Lactate 12 % 1 application Exte rnally Twice a day for 30 days Active Eliquis 5 MG as directed Orally Active Doxycycline Hyclate 100 MG 1 tablet Orally Once a day for 10 day(s) 03/26/2020 Not-Taking Compression Stockings 20-30mm Hg 1 pair wear daily for 30 days Active Actos Not-Taking Loprox Not-Taking Immunizations Vaccine Route Administration Date Status Comme nts COVID-19 Moderna Vaccine Unknown 06/02/2021 Administered 1st 2nd dose: 08/03/20 Influenza Unknown 03/18/2015 Administered Influenza Unknown 04/04/2016 Administered Influenza Unknown 03/03/2017 Administered Influenza Unknown 05/29/2018 Administered Influenza Unknown 04/02/2019 Administered Influenza Unknown 05/07/2020 Administered Influenza Unknown 06/17/2021 Administered Influenza Unknown 03/06/2023 Administered Social History Tobacco Use: Social History Observation [...] Are you an other tobacco user? No Section Notes: eye exam 05/2015 flu shot yes 05/2015 A1C 09/03/15 Result 5.8 eye exam 05/2015 flu shot yes 05/2015 pneumonia shot 05/2015 A1C 09/03/15 Result 5.8 eye exam 05/2015 flu shot yes 05/2015 pneumonia shot 05/2015 Problems Problem Type SNOMED Code ICD Code Onset Dates Problem Status W/U Status Risk Notes Problem Acquired hammer toe of right foot (4794963618108201 ) Other hammer toe(s) (acquired), right foot (M20.41) Active confirmed Problem Acquired hammer toe of left foot (2660651113514184 ) Other hammer toe(s) (acquired), left foot (M20.42) Active confirmed Problem Non-pressure ulcer lower limb (867217199) Non-pressure chronic ulcer of other part of right foot limited to breakdown of skin (L97.511) Active confirmed Problem Polyneuropathy due to type 2 diabetes mellitus (912296272) Type 2 diabetes mellitus with diabetic polyneuropathy (E11.42) Active confirmed Problem 121040686 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) Active confirmed Vital Signs Blood pressure diastolic 68 mm Hg 06/03/2024 Height 5 ft 10 in in 06/03/2024 Blood pressure systolic 120 mm Hg 06/03/2024 Weight 242 lbs 06/03/2024 BMI 34.72 kg/m2 06/03/2024 Procedures Procedure Date Ordered Date Performed Result Body Sit e 86232-OFWSDLX NAIL, 6 OR MORE 11/13/2023 N/A 35516-Fkolrtuu Plate 11/13/2023 N/A 66971-EGWR SKIN LESIONS, OVER 4 11/13/2023 N/A 89655-ZWXSMNW NAIL, 6 OR MORE 02/26/2024 N/A 08393-Phidjyov Plate 02/26/2024 N/A 63728-QJDI SKIN LESIONS, OVER 4 02/26/2024 N/A 91685-PMMTPAR NAIL, 6 OR MORE 06/03/2024 N/A 60879-PKYZ SKIN LESIONS, OVER 4 06/03/2024 N/A Encounters Encounter Location Date Provider [facility] [address] 11/13/2023 Francine Black Type 2 diabetes mellitus with diabetic polyneuropathy E11.42 ; Tinea unguium B35.1 and Ingrown nail L60.[address] [facility] [address] 02/26/2024 Francine Black Type 2 diabetes mellitus with diabetic polyneuropathy E11.42 ; Tinea unguium B35.1 and Ingrown nail L60.[address] [address] 06/03/2024 Francine Black Type 2 diabetes mellitus with diabetic polyneuropathy E11.42 ; Tinea unguium B35.1 ; Ingrown nail L60.0 and Edema, lower extremity R60.0 Assessments Encounter Date Diagnosis (ICD Code) Assessment Notes Treatment Notes Treatment Clinical Notes Section Notes 11/13/2023 Type 2 diabetes mellitus with diabetic polyneuropathy (ICD-10 - E11.42) 02/26/2024 Type 2 diabetes mellitus with diabetic polyneuropathy (ICD-10 - E11.42) 06/03/2024 Type 2 diabetes mellitus with diabetic polyneuropathy (ICD-10 - E11.42) 06/03/2024 Tinea unguium (ICD-10 - B35.1) 02/26/2024 Tinea unguium (ICD-10 - B35.1) 11/13/2023 Tinea unguium (ICD-10 - B35.1) 11/13/2023 Ingrown nail (ICD-10 - L60.0) 02/26/2024 Ingrown nail (ICD-10 - L60.0) 06/03/2024 Ingrown nail (ICD-10 - L60.0) 06/03/2024 Edema, lower extremity (ICD-10 - R60.0) Plan Of Treatment Pending Test Test Name Order Date Microalbumin, 24 hr Urine 06/23/2015 20969-PWFPXSG NAIL, 6 OR MORE 02/26/2024 22500-PSJVTTL NAIL, 6 OR MORE 06/03/2024 72721-QPXQLIL NAIL, 6 OR MORE 02/02/2023 23097-VEKRWZI NAIL, 6 OR MORE 05/11/2023 10309-ZDZAWAB NAIL, 6 OR MORE 08/10/2023 50465-XTFDJYA NAIL, 6 OR MORE 11/13/2023 23225-HVIYNBX NAIL, 6 OR MORE 05/05/2011 96914-EWUVVKB NAIL, 6 OR MORE 09/19/2011 39574-UIQXYZR NAIL, 6 OR MORE 11/03/2011 47301-UMPYYBZ NAIL, 6 OR MORE 12/05/2011 55340-OULDCLI NAIL, 6 OR MORE 11/27/2012 86131-TVCWEVM NAIL, 6 OR MORE 07/29/2013 54032-SGCPSJW NAIL, 6 OR MORE 01/27/2014 35700-NQVVZWT NAIL, 6 OR MORE 09/04/2015 87155-VAVVJPN NAIL, 6 OR MORE 12/02/2015 88622-CRKCJDL NAIL, 6 OR MORE 02/08/2016 16041-WPVOKXO NAIL, 6 OR MORE 04/25/2016 19271-PYCWAYT NAIL, 6 OR MORE 07/11/2016 74748-PDFBHMJ NAIL, 6 OR MORE 09/08/2016 86048-CGABULM NAIL, 6 OR MORE 11/17/2016 65861-RVUEIMF NAIL, 6 OR MORE 02/02/2017 94426-DIJZOJV NAIL, 6 OR MORE 04/11/2017 97417-ZHDQXFU NAIL, 6 OR MORE 07/05/2017 33127-WTDFQPS NAIL, 6 OR MORE 09/14/2017 82184-LMGLOTD NAIL, 6 OR MORE 11/20/2017 22403-IVEUFJJ NAIL, 6 OR MORE 01/29/2018 98565-DEZPUBX NAIL, 6 OR MORE 06/12/2018 41555-LQUKNGV NAIL, 6 OR MORE 08/27/2018 96468-UTLCMBK NAIL, 6 OR MORE 11/05/2018 04258-RBXGXKJ NAIL, 6 OR MORE 03/05/2019 98840-PFYQJVH NAIL, 6 OR MORE 05/13/2019 12225-VJVTEUR NAIL, 6 OR MORE 08/05/2019 71303-MSQCPTF NAIL, 6 OR MORE 10/28/2019 83224-WNOENFY NAIL, 6 OR MORE 03/26/2020 85956-MLLMLJN NAIL, 6 OR MORE 12/23/2019 35007-RVFLLDQ NAIL, 6 OR MORE 06/11/2020 81577-CFDTZDN NAIL, 6 OR MORE 08/20/2020 07760-VIPCABR NAIL, 6 OR MORE 10/22/2020 38592-HLCCODO NAIL, 6 OR MORE 12/31/2020 10654-CFEQVCM NAIL, 6 OR MORE 04/19/2021 57683-PHEWZBW NAIL, 6 OR MORE 07/15/2021 42675-YGSXZSL NAIL, 6 OR MORE 10/04/2021 31058-JLXDJAO NAIL, 6 OR MORE 02/08/2022 95320-TGXZZHG NAIL, 6 OR MORE 04/25/2022 20649-DLSZHVI NAIL, 6 OR MORE 08/01/2022 84537-OUWOBZH NAIL, 6 OR MORE 11/03/2022 62254-HJHKABI NAIL, 1-5 04/03/2015 53603-SNRRHPU NAIL, 1-5 06/16/2015 73191-ONMBSGS NAIL, 1-5 07/28/2014 89870-DVKTNXS NAIL, 1-5 04/30/2012 82435-VWJTYMQ NAIL, 1-5 11/27/2014 79508-CQWLEOI NAIL, 1-5 01/26/2015 25815-Yann Destruction, 1-14 04/25/2022 58059-Vdqn Destruction, 1-14 08/01/2022 54909-Nrlo Destruction, 1-14 11/03/2022 07337-Uhwmprvw Plate 02/26/2024 17109-Irueevbv Plate 11/13/2023 88792-Pgrmxaps Plate 11/03/2022 55463-Idtxbswz Plate 02/02/2023 58393-Tlqemehh Plate 02/08/2022 32046-Ufsrqcxf Plate 10/04/2021 60620-Ygkuusfq Plate 10/28/2019 95634-Uctpinvh Plate 04/19/2021 08338-Dbhykbhv Plate 12/31/2020 59029-Kwszmvzl Plate 01/16/2020 14632-Sjuwkisx Plate 01/23/2020 73478-Iwwpfioo Plate 03/05/2019 09143-Hibzqctw Plate 05/13/2019 30862-Wltyokwo Plate 08/27/2018 23540-Wyqaoksu Plate 01/29/2018 61087-Evzhvtuj Plate 06/12/2018 78827-Rzbtlscn Plate 01/26/2015 98557-Exdurzlh Plate 04/03/2015 21651-Vdiyxpwe Plate 01/27/2014 60010-Ouwjgqeh Plate 03/13/2014 29702-Ludcicuw Plate 07/29/2013 19650-Jjoukxsw Plate 11/27/2012 46677-Zxbyyaee Plate 03/09/2012 98124-Rmjkwtag Plate 04/30/2012 81047-Udefadke Plate 12/05/2011 84238-Kzwamklj Plate 02/23/2012 75588-Qexjycds Plate 11/03/2011 46548-Lghawfbv Plate 09/19/2011 41964-Dqfwcpkf Plate 05/05/2011 25510-Icqhkqna Plate 06/06/2011 05702-Hgulxbes Plate 07/28/2014 61663-Lqiryyhg Plate 11/27/2014 60425-Ckmboaeu Plate 07/11/2016 83032-Vrygogqv Plate 04/25/2016 92233-Repdrsxl Plate 09/14/2017 99628-Pbidgbwx Plate 04/11/2017 24179-Pckoqnjt Plate 02/08/2016 28508-Siftimta Plate 11/17/2016 61560-Rohpxexc Plate 09/08/2016 72017-Urwxuarq Plate Each Additional 66359-Hxytzeoi Plate Each Additional 09/2011 57814-Uqpvhxnw Plate Each Additional 20037-Emujwgou Plate Each Additional 01/2012 91385-Lxnzzflu Plate Each Additional 21782-Xcokzjng Plate Each Additional 02451-Xzaehcxj Plate Each Additional 44921-Pyqcxteh Plate Each Additional 07/2020 22180-Phyjxtvi Plate Each Additional 03/2022 25777-QJZ 01/11/2012 58047- Debride <25 sq cm 01/30/2012 42699- Debride <25 sq cm 02/23/2012 73763- Debride <25 sq cm 04/30/2012 29637- Debride <25 sq cm 04/24/2017 71307- Debride <25 sq cm 01/30/2020 81430- Debride <25 sq cm 02/13/2020 85488- Debride <25 sq cm 02/27/2020 02583- Debride <25 sq cm 01/23/2020 37956- Debride <25 sq cm 03/26/2020 19260- Debride <25 sq cm 04/06/2020 38960-HPHUDSZ SKIN/TISSUE 03/09/2012 40253 I&D ABSCESS- SIMPLE,SINGLE 014 49786 I&D ABSCESS- SIMPLE,SINGLE 022 50389-ZJEN SKIN LESIONS, OVER 4 10/05/19 22 07698-FOMF SKIN LESIONS, OVER 4 08/01/19 23 45911-EATK SKIN LESIONS, OVER 4 04/25/20 22 58180-ASIM SKIN LESIONS, OVER 4 02/03/20 23 91535-UBGH SKIN LESIONS, OVER 4 11/04/19 23 24555-GGMC SKIN LESIONS, OVER 4 12/23/19 20 82251-HKFH SKIN LESIONS, OVER 4 10/28/19 20 33901-XPKM SKIN LESIONS, OVER 4 08/27/19 19 05486-DGKA SKIN LESIONS, OVER 4 06/12/20 18 10596-WDTJ SKIN LESIONS, OVER 4 01/30/20 18 73595-YEXR SKIN LESIONS, OVER 4 11/06/19 19 11618-DPSL SKIN LESIONS, OVER 4 03/05/20 19 36073-IKTP SKIN LESIONS, OVER 4 05/13/20 19 66950-ZTTC SKIN LESIONS, OVER 4 08/05/19 20 48692-UBUG SKIN LESIONS, OVER 4 04/03/20 15 06753-USSS SKIN LESIONS, OVER 4 07/05/19 18 88063-ETET SKIN LESIONS, OVER 4 04/11/20 17 85485-SLNO SKIN LESIONS, OVER 4 11/21/19 18 97669-YGLZ SKIN LESIONS, OVER 4 09/15/19 18 20574-MGZW SKIN LESIONS, OVER 4 11/18/19 17 57860-WYKS SKIN LESIONS, OVER 4 09/09/19 17 10633-SBIH SKIN LESIONS, OVER 4 02/03/20 17 60432-KSJA SKIN LESIONS, OVER 4 04/25/20 16 35231-WISI SKIN LESIONS, OVER 4 07/11/19 17 77282-AKFG SKIN LESIONS, OVER 4 02/08/20 16 11710-AVVV SKIN LESIONS, OVER 4 12/02/19 16 49540-TTNC SKIN LESIONS, OVER 4 09/04/19 16 63775-ILPP SKIN LESIONS, OVER 4 06/16/20 15 71220-FWNR SKIN LESIONS, OVER 4 11/13/19 24 17703-CAYW SKIN LESIONS, OVER 4 02/26/20 24 05944-JKNZ SKIN LESIONS, OVER 4 08/10/19 24 72937-CXEH SKIN LESIONS, OVER 4 05/11/20 23 27285-SCEK SKIN LESIONS, OVER 4 06/03/20 24 05581-SPRO SKIN LESIONS, 2 TO 4 03/26/20 20 10984-CVLL SKIN LESIONS, 2 TO 4 06/11/20 20 84177-RCOV SKIN LESIONS, 2 TO 4 08/20/19 21 20758-VJUZ SKIN LESIONS, 2 TO 4 02/09/20 22 08373-YLXB SKIN LESIONS, 2 TO 4 07/15/19 22 29961-YZHV SKIN LESIONS, 2 TO 4 04/19/20 21 92840-BUDM SKIN LESIONS, 2 TO 4 01/01/20 21 83699-HPCT SKIN LESIONS, 2 TO 4 10/23/19 21 M6393-XOVFSLET DYSTROPHIC NAILS ANY # Next Appt Details Provider Name:Francine Ibrahim , 09/09/2024 09:15:00 AM, [address] [place], [address], Insurance Providers Payer Name Payer Address Payer Phone Subscriber Number Group Number Insured Name Patient Relationship to Insured Coverage Start Date Coverage End Date [employer] Medicare [id number] [address] [address] [place] [address] [id number] Alireza Gabriel Self - patient is the insured Medical (General) History Medical History History ICD Code mumps back, hip, knee pain type II diabetes Hay fever Surgical History Surgery Date(Month/Year) left knee arthroscopy 1995 left knee replacement 08/28/2012
--- OUTSIDE RECORDS SUMMARY | 2024-08-22 14:21 | XMS_ITS ---
Author Organization [facility] Address [address] [place] [address] Care Team Providers Care Rafter Cutting Machine Operator Name Role Phone John PENNY, Latoya Primary Care Provider Isma Vu [phone] ALLERGIES Allergen (clinical drug ingredient) Drug/Non Drug Allergy documented on EMR Reaction Allergy Type Onset Date Status levofloxacin Levofloxacin hives Drug Allergy A ctive ZyrTEC fatigue Drug Allergy Active Keflex hives Drug Allergy Active tamsulosin Flomax Unknown Drug Allergy Active REASON FOR VISIT Patient presents today for fe def anemia MEDICATIONS Medication SIG (Take, Route, Frequency, Duration) Notes Start Date End Date Status FeroSul 325 (65 Fe) MG TAKE 1 TABLET BY MOUTH DAILY Oral for 90 Not-Taking metFORMIN HCl 1000 MG TK 1 T PO BID WF O rally Once a day Active glipiZIDE ER 2.5 MG TK 1 T PO QD IN THE MORNING WITH ANGELA Oral 1 tablet in the morning with breakfast Active Eliquis 5 MG TK 1 T PO BID Oral f or 30 Active Bydureon 2 MG 1 Subcutaneous once a week Active Januvia 100 MG 1 tablet Orally Once a day for 30 day(s) Active Simvastatin 10 MG 1 tablet in the even ing Orally every other evening Active Furosemide 40 MG TK 1 T PO QD Oral for 90 Active Metoprolol Succinate 25 MG 1 capsule Orally Once a day for 30 day(s) Active VITAL SIGNS BMI 35.01 kg/m2 04/09/2024 Blood pressure systolic 00 mm Hg 04/09/20 24 Blood pressure diastolic 00 mm Hg 024 Height 70 in 04/09/2024 Weight 244 lbs 04/09/2024 Encounters Encounter Location Date Provider Diagnosis [facility] [address] [place] [address] 04/09/2024 Isma Yepez Iron deficiency anemia D50.9 ASSESSMENTS Encounter Date Diagnosis Assessment Notes Treatment Notes Treatment Clinical Notes 04/09/2024 Iron deficiency anemia (ICD-10 - D50.9) PLAN OF TREATMENT Next Appt Details Follow Up: 1 Year, Reason: Provider Name:Isma Yepez , 04/08/2025 09:30:00 AM, [address], [address], [place], [address], Progress Notes * Examination Category Sub-Category Detail Notes General Examination GENERAL APPEARANCE: pleasant , well nourished, well developed, in no acute distress EYES: sclera non-icteric NECK/THYROID: no cervical lymphade nopathy, neck supple HEART: S1, S2 normal LUNGS: clear to auscultatio n bilaterally ABDOMEN: normal bowel sounds, no guarding or rigidity, no hepatosplenomegaly, no masses palpable, soft, nontender, nondistended. NEUROLOGIC: alert and oriented SKIN: nonjaundiced, no spi arnie angiomata. EXTREMITIES: no edema ORAL CAVITY: mucosa moist
--- OUTSIDE RECORDS SUMMARY | 2024-08-22 14:21 | XMS_ITS ---
Author Organization [facility] Address [address] [place] [address] Care Team Providers Care Centura Technical Lead Senior Developer Name Role Phone John PENNY, Latoya Primary Care Provider Isma Vu Unavailable [phone] REASON FOR VISIT Patient presents today for an iron def anemia Encounters Encounter Location Date Provider Diagnosis [facility] [address] [place] [address] 07/27/2023 Isma Yepez PLAN OF TREATMENT Next Appt Details Provider Name:Isma Yepez , 04/08/2025 09:30:00 AM, [address], [address], [place], [address],
--- OUTSIDE RECORDS SUMMARY | 2024-08-22 14:21 | XMS_ITS ---
Author Organization [facility] Address [address] [place] [address] Care Team Providers Care Global Engineering Manager Name Role Phone John PENNY, Latoya Primary Care Provider Isma Vu [phone] ALLERGIES Allergen (clinical drug ingredient) Drug/Non Drug Allergy documented on EMR Reaction Allergy Type Onset Date Status levofloxacin Levofloxacin hives Drug Allergy A ctive ZyrTEC fatigue Drug Allergy Active Keflex hives Drug Allergy Active tamsulosin Flomax Unknown Drug Allergy Active RESULTS Component Value Reference Range Notes Ferritin Reviewed date:08/09/2023 06:26:15 PM Interpretation: Performing Lab:[facility], [address] [place] [phone] Notes/Report: Ferritin 242 20-250 ng/mL TSH reflex Free T4 Reviewed date:08/09/2023 06:25:48 PM Interpretation: Performing Lab:[facility], [address] [place] [phone] Notes/Report: TSH reflex Free T4 3.51 0.32-4.0 uIU/mL REASON FOR VISIT Patient presents today for iron de, anemia MEDICATIONS Medication SIG (Take, Route, Frequency, Duration) Notes Start Date End Date Status Eliquis 5 MG TK 1 T PO BID Oral for 30 Active glipiZIDE ER 2.5 MG TK 1 T PO QD IN THE MORNING WITH ANGELA Oral 1 tablet in the morning with breakfast Active FeroSul 325 (65 Fe) MG TAKE 1 TABLET BY MOUTH DAILY Oral for 90 Active Bydureon 2 MG 1 Subcutaneous once a week Active metFORMIN HCl 1000 MG TK 1 T PO BID WF O rally Once a day Active Januvia 100 MG 1 tablet Orally Once a day for 30 day(s) Active Metoprolol Succinate 25 MG 1 capsule Ora lly Once a day for 30 day(s) Active Furosemide 40 MG TK 1 T PO QD Oral for 90 Active Simvastatin 10 MG 1 tablet in the even ing Orally every other evening Activ e PROBLEMS Problem Type ICD Code Onset Dates Problem Status W/U Status Risk SNOMED Code Notes Problem Constipation, unspecified constipation type (K59.00) Active confirmed 58772899 VITAL SIGNS BMI 35.01 kg/m2 08/08/2023 Blood pressure systolic 00 mm Hg 08/08/19 24 Blood pressure diastolic 00 mm Hg 024 Height 70 in 08/08/2023 Temperature 96.9 degrees Fahrenheit 08/08/19 24 Weight 244 lbs 08/08/2023 Encounters Encounter Location Date Provider Diagnosis [facility] [address] [place] [address] 08/08/2023 Isma Yepez Other iron deficienc y anemia D50.8 and Constipation, unspecified constipation type K59.00 ASSESSMENTS Encounter Date Diagnosis Assessment Notes Treatment Notes Treatment Clinical Notes 08/08/2023 Other iron deficiency anemia (ICD-10 - D50.8) 08/08/2023 Constipation, unspecified constipation type (ICD-10 - K59.00) Use Miralax once or twice a day every day for the constipation, but adjust as needed PLAN OF TREATMENT Treatment Notes Assessment Notes Constipation, unspecified constipation t ype Use Miralax once or twice a day every day for the constipation, but adjust as needed Pending Test Test Name Order Date IRON + IBC (FE) 08/08/2023 VITAMIN B12 AND FOLATE 08/08/2023 CBC w DIFF 08/08/2023 CELIAC PANEL #10 08/08/2023 Next Appt Details Follow Up: 2023, Reaso n: Provider Name:Isma Yepez , 04/08/2025 09:30:00 AM, [address], [address], [place], [address], Progress Notes * Examination Category Sub-Category Detail [...]
--- OUTSIDE RECORDS SUMMARY | 2024-08-22 14:21 | XMS_ITS ---
Author [facility] Address [address] [place] [address] Care Team Providers Care Analytical Statistician Name Role Phone John PENNY, Latoya Negrete Primary Care Provider Un available Black, Francine Unavailable [phone] Allergies Allergen (clinical drug ingredient) Drug/Non Drug [...] Ordered Date Performed Result Body Sit e 43545-TERFKKT NAIL, 6 OR MORE 11/13/2023 N/A 53552-Bojuvjto Plate 11/13/2023 N/A 98707-XHYR SKIN LESIONS, OVER 4 11/13/2023 N/A Encounters Encounter Location Date Provider Diagnosis [facility] [address] [address] 11/13/2023 Francine Ibrahim Type 2 diabetes mellitus [...] Treatment Pending Test Test Name Order Date 32665-PTAUTBR NAIL, 6 OR MORE 11/13/2023 12395-Nekzgjhw Plate 11/13/2023 74729-WDPN SKIN LESIONS, OVER 4 11/13/19 24 Next Appt Details Follow Up: 2 Weeks, Reason: Provider Name:Francine Ibrahim , 09/09/2024 09:15:00 AM, [address] [place] [address], [phone], Procedure Notes * Category Sub-Category Detail Notes [...] Motrin was recommended for pain or discomfort (91326) , DIABETES: Matricectomy deferred at this time [...] as necessary. Patient chooses, no pharmaceutical tx (70748) Keratoma Treatment Parring or Cutting o f Benign Hyperkeratotic Lesion(s) 89182 ( >4 Lesions) - The Benign hyperkeratotic lesions, as described above were pared, and/or cut utilizing a sterile #15 blade, tissue nippers, and/or dremel Progress Notes * Alireza ROWAN MDOB: [birth year] (78 yo M)Acc No.[id number]:11/13/2023 Progress Note Patient:?Alireza Rowan Provider:?Francine Ibrahim DPM :1945???Age:78 Y???Sex:Male Simón e:11/13/2023 Address:[address] [place] [id number] Pcp:Amol Yepez Subjective: * Chief Complaints: * [...] walking. ?Marital status: , . 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 * Medications:?TakingSimvastat in 5 MG Tablet 1 [...] - L60.0? Plan: * Treatment: 2.?Tinea unguium?Procedure: 18843-DWNVBYN NAIL, 6 OR MORE 3.?Ingrown nail?Procedure: 27602-Pjwyxfyq Plate * Procedures:?Debride Nail 6-10:?Nail debridement?Nail debridement performed extensively to reduce/remove overall nail length and girth, subungual debris, and necrotic tissue, by manual and electrical means with use of a nail nipper and/or dremel, to more viable healthy nail plate or bed tissue 6-10. Silver nitrate used for any petechial bleeding as necessary. Patient chooses, no pharmaceutical tx (06808).?Keratoma Treatment:?Parring or Cutting of Benign Hyperkeratotic Lesion(s)?16554 ( >4 Lesions) - The Benign hyperkeratotic [...] Motrin was recommended for pain or discomfort (71335) , DIABETES: Matricectomy deferred at this time due to diabetes risk.? * Procedure Codes:?74284 DEBRI DE NAIL, 6 OR MORE, Modifiers: XS 05175 TRIM SKIN LESIONS, OVER 4, Modifiers: XS 18194 Avulsion Plate, Modifiers: T6 * Follow Up:?2 Weeks * Images: * Sign off status: Completed true * Provider:?Francine Ibrahim DPM Date:?2023 Generated for Floyd robertson/Marquis/Lorenzo on:?08/22/2024 02:21 PM EST History and Physical Notes * [...]
--- OUTSIDE RECORDS SUMMARY | 2024-08-22 14:22 | XMS_ITS ---
[facility] Address [address] [place] [address] Care Team Providers Care Assembly Line Upholsterer Name Role Phone John PENNY, Latoya Negrete Primary Care Provider Un available Black, Francine Unavailable [phone] Allergies Allergen (clinical drug ingredient) Drug/Non Drug [...] Ordered Date Performed Result Body Sit e 42181-SKZMIBX NAIL, 6 OR MORE 02/26/2024 N/A 56633-Kfmlqhyx Plate 02/26/2024 N/A 46199-ZIAJ SKIN LESIONS, OVER 4 02/26/2024 N/A Encounters Encounter Location Date Provider Diagnosis [facility] [place] [address] [place] [address] 02/26/2024 Francine Ibrahim Type 2 diabetes mellitus [...] Treatment Pending Test Test Name Order Date 68950-WPBGLZF NAIL, 6 OR MORE 02/26/2024 43204-Mjanrlcs Plate 02/26/2024 31337-WEKS SKIN LESIONS, OVER 4 02/26/20 24 Next Appt Details Follow Up: 2 Weeks, Reason: Provider Name:Francine Ibarhim , 09/09/2024 09:15:00 AM, [address] [place] [address], [phone], Procedure Notes * Category Sub-Category Detail Notes [...] Motrin was recommended for pain or discomfort (32414) , DIABETES: Matricectomy deferred at this time [...] as necessary. Patient chooses, no pharmaceutical tx (49738) Keratoma Treatment Parring or Cutting o f Benign Hyperkeratotic Lesion(s) 44042 ( >4 Lesions) - The Benign hyperkeratotic lesions, as described above were pared, and/or cut utilizing a sterile #15 blade, tissue nippers, and/or dremel Progress Notes * Alireza ROWAN MDOB: [birth year] (78 yo M)Acc No.[id number]:02/26/2024 Progress Note Patient:?Alireza Rowan Provider:?Francine Ibrahim DPM :1945???Age:78 Y???Sex:Male Simón e:02/26/2024 Address:[address] [place] [id number] Pcp:Amol Yepez Subjective: * Chief Complaints: * [...] walking. ?Marital status: , . 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 * Medications:?TakingSimvastat in 5 MG Tablet 1 [...] - L60.0? Plan: * Treatment: 2.?Tinea unguium?Procedure: 29606-RBOXPBQ NAIL, 6 OR MORE 3.?Ingrown nail?Procedure: 57644-Pmalhsxe Plate * Procedures:?Debride Nail 6-10:?Nail debridement?Nail debridement performed extensively to reduce/remove overall nail length and girth, subungual debris, and necrotic tissue, by manual and electrical means with use of a nail nipper and/or dremel, to more viable healthy nail plate or bed tissue 6-10. Silver nitrate used for any petechial bleeding as necessary. Patient chooses, no pharmaceutical tx (19942).?Keratoma Treatment:?Parring or Cutting of Benign Hyperkeratotic Lesion(s)?66330 ( >4 Lesions) - The Benign hyperkeratotic [...] Motrin was recommended for pain or discomfort (15497) , DIABETES: Matricectomy deferred at this time due to diabetes risk.? * Procedure Codes:?38720 DEBRI DE NAIL, 6 OR MORE, Modifiers: XS 42522 TRIM SKIN LESIONS, OVER 4, Modifiers: XS 74889 Avulsion Plate, Modifiers: T5 * Follow Up:?2 Weeks * Images: * Sign off status: Completed true * Provider:?KAMARI JallohM Date:?2023 Generated for Floyd robertson/Marquis/eTransmitting on:?08/22/2024 02:21 PM EST History and Physical [...]
== END 2024-08-22 14:03 | disposition home or self-care (01) ==
PROVIDERS: PCP Internal Medicine; Visit Provider Internal Medicine
DX: I10 Essential (primary) hypertension (principal); E78.5 Hyperlipidemia, unspecified; D50.9 Iron deficiency anemia, unspecified; E11.9 Type 2 diabetes mellitus without complications

== ENCOUNTER → 2024-08-22 13:24 | Outpatient (BNVA) | payer MEDICARE, SELFPAY | PROVIDERS: PCP Internal Medicine; Visit Provider Internal Medicine | DX: E11.9 Type 2 diabetes mellitus without complications (principal); D64.9 Anemia, unspecified; E78.5 Hyperlipidemia, unspecified; I10 Essential (primary) hypertension | CPT/HCPCS: 96127; 99212 ==

== ENCOUNTER 2024-11-16 08:38 | Outpatient (REF) | payer MEDICARE, SELFPAY ==
--- OUTSIDE RECORDS SUMMARY | 2024-11-16 08:41 | XMS_ITS | Patient Health Record ---
Author Organization [facility] Address [address] [place] [address] Care Team Providers Care Audit Director Name Role Phone John PENNY, Latoya Primary Care Provider Isma Vu [phone] Allergies Allergen (clinical drug ingredient) Drug/Non Drug Allergy documented on EMR Reaction Allergy Type Onset Date Status levofloxacin Levofloxacin hives Drug Allergy A ctive ZyrTEC fatigue Drug Allergy Active Keflex hives Drug Allergy Active tamsulosin Flomax Unknown Drug Allergy Active Reason For Referral No Information Medications Medication [...] MG 1 Subcutaneous once a week Active Immunizations Vaccine Route Administration Date Status Comme nts Influenza Unknown 04/06/2020 Administered Influenza Unknown 05/19/2021 Administered Influenza Unknown 04/12/2022 Administered Problems Problem Type SNOMED Code ICD Code Onset Dates Problem Status W/U Status Risk Notes Problem 830822243 Encounter for screening for malignant neoplasm of colon (Z12.11) Active confirmed Problem 546611332 History of adenomatous polyp of colon (Z86.010) Active confirmed Problem Iron deficiency anemia (00997266) Iron deficiency anemia (D50.9) Active confirmed Problem 190267886 Preprocedural examination (Z01.818) Active confirmed Problem History of polyp of colon (240780649) History of colon polyps (Z86.010) Active confirmed Problem 394550165 Long-term use of aspirin therapy (Z79.82) Active confirmed Problem 99507762 Constipation, unspecified constipation type (K59.00) Active confirmed Problem 62282476 Other iron deficiency anemia (D50.8) Active confirmed Problem 666118213 Anticoagulant long-term use (Z79.01) Active confirmed Problem 10645350 Iron deficiency anemia, unspecified iron deficiency anemia type (D50.9) Active confirmed Problem 77574250 Mucosal abnormality of duodenum (K31.9) Active confirmed Problem Diverticulosis of colon (314988177) Diverticulosis of colon (K57.30) Active confirmed Vital Signs Blood pressure diastolic 00 mm Hg 04/09/2024 Height 70 in 04/09/2024 Blood pressure systolic 00 mm Hg 04/09/2024 Weight 244 lbs 04/09/2024 BMI 35.01 kg/m2 04/09/2024 Encounters Encounter Location Date Provider Diagnosis [facility] [address] [facility] [address] [place] [address] 04/09/2024 Isma Yepez Iron deficiency anemia D50.9 Assessments Encounter Date Diagnosis (ICD Code) Assessment Notes Treatment Notes Treatment Clinical Notes Section Notes 04/09/2024 Iron deficiency anemia (ICD-10 - D50.9) Overall, Mr. Rowan appears quite well and is not having any new or worrisome GI complaints. His previous iron deficiency anemia has continued to remain stable despite reporting that he is not on any iron supplements and he remains on his blood thinner. He is also doing well on a regular diet despite a question of celiac disease and previous duodenal biopsies. At this point I advised him that I don't think he needs any particular intervention on my part. I have recommended that he continue to have periodic blood counts just to be sure things remain stable and I will plan to see him in one year for a followup visit. I did advise him to certainly call if he has any problems or questions I can be of assistance with in the interim. Mr. Rowan was comfortable with this plan. Thank you again for allowing me to participate in Mr. Rowan's care. I shall continue to keep you advised of his progress. Plan Of Treatment Pending Test Test Name Order Date IRON + IBC (FE) 04/12/2022 IRON + IBC (FE) 08/08/2023 IRON + IBC (FE) 10/04/2021 VITAMIN B12 AND FOLATE 08/08/2023 VITAMIN B12 AND FOLATE 10/04/2021 CBC w DIFF 08/08/2023 CBC w DIFF 10/04/2021 CBC w DIFF 04/12/2022 CELIAC PANEL #10 08/08/2023 CELIAC PANEL #10 09/17/2021 Ferritin 10/04/2021 Future Test Test Name Order Date COLONOSCOPY 08/27/2013 COLONOSCOPY 03/21/2017 COLONOSCOPY 04/07/2020 UPPER GI ENDOSCOPY 08/06/2021 COLONOSCOPY 08/06/2021 Next Appt Details Provider Name:Isma Yepez , 04/08/2025 09:30:00 AM, [address] [place] [address], [address], [place], [address], Insurance Providers Payer Name Payer Address Payer Phone Subscriber Number Group Number Insured Name Patient Relationship to Insured Coverage Start Date Coverage End Date [facility] [address] [address] [place] [address] [id number] ALIX ROWAN Self - patient is the insured Medical (General) History Medical History History ICD Code Colonoscopy 07-20-2007 and 2003--tubular adenomas removed Hyperlipidemia NIDDM Hypertension Denies LA,CVA,Lung disease,renal disease BPH Colonoscopy in 04/2013 with [...]
--- OUTSIDE RECORDS SUMMARY | 2024-11-16 08:41 | XMS_ITS | Patient Health Record ---
Author Organization [facility] Address [address] [place] [address] Care Team Providers Care Journalism Intern Name Role Phone John PENNY, Laotya Negrete Primary Care Provider Un available Black, Francine Unavailable [phone] Allergies Allergen (clinical drug ingredient) Drug/Non Drug Allergy documented on EMR Reaction Allergy Type Onset Date Status Ceftin rash Drug Allergy Active Keflex Unknown Drug Allergy Active cefaclor Cefaclor rash Drug Allergy Active Results Component Value Reference Range Notes HEMOGLOBIN A1C (GLYCOHEMOGLO BIN) Reviewed date:09/09/2024 09:14:45 AM Interpretation: Performing Lab: Notes/Report: HEMOGLOBIN A1C % (HH) 5.6 HEMOGLOBIN A1C (GLYCOHEMOGLO BIN) Reviewed date:06/03/2024 02:53:10 PM Interpretation: Performing Lab: Notes/Report: TOTAL HEMOGLOBIN (HGBA1C) 5.8 Reason For Referral No Information Medications Medication SIG (Take, Route, Frequency, Duration) Notes Start Date End Date Status Actos Not-Taking Loprox Not-Taking Compression Stockings 20-30mm Hg 1 pair wear daily for 30 days Active Ammonium Lactate 12 % 1 application Exte rnally Twice a day for 30 days Active Enablex Active glyBURIDE Active Cipro 500 MG 1 tablet Orally ever y 12 hrs for 10 day(s) Not-Taking Lisinopril Active Bactrim DS 800-160 MG 1 tablet Orally Tw ice a day for 10 day(s) 01/30/2020 Not-Taking Simvastatin 5 MG 1 tablet every eveni ng Orally Once a day for 30 day(s) Active Doxycycline Hyclate 100 MG 1 tablet Orally Once a day for 10 day(s) 03/26/2020 Not-Taking Eliquis 5 MG as directed Orally Active Metoprolol Tartrate 25 MG Orally Active Flomax Active Immunizations Vaccine Route Administration Date Status Comme nts Influenza Unknown 03/18/2015 Administered Influenza Unknown 04/04/2016 Administered Influenza Unknown 03/03/2017 Administered Influenza Unknown 05/29/2018 Administered Influenza Unknown 04/02/2019 Administered Influenza Unknown 05/07/2020 Administered Influenza Unknown 06/17/2021 Administered Influenza Unknown 03/06/2023 Administered COVID-19 Moderna Vaccine Unknown 06/02/2021 Administered 1st 2nd dose: 08/03/20 Social History Tobacco Use: Social History Observation Description Date Details (start date - stop date) Never Smoker NA - NA Tobacco use other than smoking: Question Answer Notes Are you an other tobacco user? No Tobacco Control (Standard) Question Answer Notes Tobacco use: Nonsmoker Additional Findings: Tobacco non-user Current no nsmoker AUDIT-C (Standard) Question Answer Notes Did you have a drink containing alcohol in the p ast year? No Points 0 Interpretation Negative Section Notes: eye exam 05/2015 flu shot yes 05/2015 A1C 09/03/15 Result 5.8 eye exam 05/2015 flu shot yes 05/2015 pneumonia shot 05/2015 A1C 09/03/15 Result 5.8 eye exam 05/2015 flu shot yes 05/2015 pneumonia shot 05/2015 Problems Problem Type SNOMED Code ICD Code Onset Dates Problem Status W/U Status Risk Notes Problem Acquired hammer toe of right foot (6482636391957517 ) Other hammer toe(s) (acquired), right foot (M20.41) Active confirmed Problem Acquired hammer toe of left foot (5699757689726013 ) Other hammer toe(s) (acquired), left foot (M20.42) Active confirmed Problem Non-pressure ulcer lower limb (857038485) Non-pressure chronic ulcer of other part of right foot limited to breakdown of skin (L97.511) Active confirmed Problem Polyneuropathy due to type 2 diabetes mellitus (576254589) Type 2 diabetes mellitus with diabetic polyneuropathy (E11.42) Active confirmed Problem 637058194 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) Active confirmed Vital Signs Blood pressure diastolic 68 mm Hg 10/09/2024 Height 5 ft 10 in in 10/09/2024 Blood pressure systolic 120 mm Hg 10/09/2024 Weight 242 lbs 10/09/2024 BMI 34.72 kg/m2 10/09/2024 Procedures Procedure Date Ordered Date Performed Result Body Sit e 89922-HJFIDHQ NAIL, 6 OR MORE 02/26/2024 N/A 76541-Btkqzcgl Plate 02/26/2024 N/A 63697-WEIV SKIN LESIONS, OVER 4 02/26/2024 N/A 89732-EXDMWHI NAIL, 6 OR MORE 06/03/2024 N/A 64955-LOAU SKIN LESIONS, OVER 4 06/03/2024 N/A 62062-OCCACZU NAIL, 6 OR MORE 09/09/2024 N/A 50118-Sfjosnvz Plate 09/09/2024 N/A 76932-WZTM SKIN LESIONS, OVER 4 09/09/2024 N/A 31454-Zhhnupww Plate 10/09/2024 N/A Encounters Encounter Location Date Provider Diagnosis [address] [address] 02/26/2024 Francine Black Type 2 diabetes mellitus with diabetic polyneuropathy E11.42 ; Tinea unguium B35.1 and Ingrown nail L60.[address] [address] 06/03/2024 Francine Black Type 2 diabetes mellitus with diabetic polyneuropathy E11.42 ; Tinea unguium B35.1 ; Ingrown nail L60.0 and Edema, lower extremity R60.[address] [address] 09/09/2024 Francine Black Type 2 diabetes mellitus with diabetic polyneuropathy E11.42 ; Other hammer toe(s) (acquired), right foot M20.41 ; Tinea unguium B35.1 ; Ingrown nail L60.0 ; Edema, lower extremity R60.0 and Other hammer toe(s) (acquired), left foot M20.[address] [address] 10/09/2024 Francine Black Ingrown nail L60.0 a nd Type 2 diabetes mellitus with diabetic polyneuropathy E11.42 [facility] [place] [address] [place] [address] 10/08/2024 Francine Ibrahim Assessments Encounter Date Diagnosis (ICD Code) Assessment Notes Treatment Notes Treatment Clinical Notes Section Notes 02/26/2024 Type 2 diabetes mellitus with diabetic polyneuropathy (ICD-10 - E11.42) 06/03/2024 Type 2 diabetes mellitus with diabetic polyneuropathy (ICD-10 - E11.42) 09/09/2024 Other hammer toe(s) (acquired), right foot (ICD-10 - M20.41) Patient Educated with: DIABETIC FOOT CARE INSTRUCTIONS. pdf (DIABETIC FOOT CARE INSTRUCTIONS. pdf) 09/09/2024 Type 2 diabetes mellitus with diabetic polyneuropathy (ICD-10 - E11.42) 10/09/2024 Type 2 diabetes mellitus with diabetic polyneuropathy (ICD-10 - E11.42) 10/09/2024 Ingrown nail (ICD-10 - L60.0) 09/09/2024 Tinea unguium (ICD-10 - B35.1) 02/26/2024 Tinea unguium (ICD-10 - B35.1) 06/03/2024 Tinea unguium (ICD-10 - B35.1) 02/26/2024 Ingrown nail (ICD-10 - L60.0) 06/03/2024 Ingrown nail (ICD-10 - L60.0) 09/09/2024 Ingrown nail (ICD-10 - L60.0) 09/09/2024 Edema, lower extremity (ICD-10 - R60.0) 06/03/2024 Edema, lower extremity (ICD-10 - R60.0) 09/09/2024 Other hammer toe(s) (acquired), left foot (ICD-10 - M20.42) Plan Of Treatment Pending Test Test Name Order Date Microalbumin, 24 hr Urine 06/23/2015 42392-JPZAJKQ NAIL, 6 OR MORE 02/02/2023 26931-XROPVIY NAIL, 6 OR MORE 05/11/2023 79778-TBYFFOU NAIL, 6 OR MORE 08/10/2023 65678-PZYTLJC NAIL, 6 OR MORE 11/13/2023 25041-OFFYKHO NAIL, 6 OR MORE 02/26/2024 36819-SJPLFDH NAIL, 6 OR MORE 06/03/2024 24008-WHELIPI NAIL, 6 OR MORE 09/09/2024 81776-HVKJLSR NAIL, 6 OR MORE 05/05/2011 19773-NXMYTAJ NAIL, 6 OR MORE 09/19/2011 24160-SKWTTJJ NAIL, 6 OR MORE 11/03/2011 90921-HTJVFXR NAIL, 6 OR MORE 12/05/2011 45278-SNBLBRM NAIL, 6 OR MORE 11/27/2012 25994-KDFIHEV NAIL, 6 OR MORE 07/29/2013 82301-EAVNTJQ NAIL, 6 OR MORE 01/27/2014 18870-TTLDSWS NAIL, 6 OR MORE 09/04/2015 66525-IXFSXAP NAIL, 6 OR MORE 12/02/2015 48136-HWTAANN NAIL, 6 OR MORE 02/08/2016 90552-DMWXWPE NAIL, 6 OR MORE 04/25/2016 91943-GUIPFVH NAIL, 6 OR MORE 07/11/2016 44570-TUVFDDP NAIL, 6 OR MORE 09/08/2016 99431-ONLHOBX NAIL, 6 OR MORE 11/17/2016 20133-XPMUVQE NAIL, 6 OR MORE 02/02/2017 10947-QDNCMZN NAIL, 6 OR MORE 04/11/2017 19702-ZGUICQU NAIL, 6 OR MORE 07/05/2017 35544-GKCXAXP NAIL, 6 OR MORE 09/14/2017 35370-YUDJFQG NAIL, 6 OR MORE 11/20/2017 96899-AUXTYTI NAIL, 6 OR MORE 01/29/2018 59254-QZJJGMW NAIL, 6 OR MORE 06/12/2018 91959-FHHBHRY NAIL, 6 OR MORE 08/27/2018 61125-WPNMRYJ NAIL, 6 OR MORE 11/05/2018 94766-OTFKVOI NAIL, 6 OR MORE 03/05/2019 35847-ZATHOFK NAIL, 6 OR MORE 05/13/2019 66734-GLJMLSH NAIL, 6 OR MORE 08/05/2019 65745-TWMWMCW NAIL, 6 OR MORE 10/28/2019 11385-LHOWROZ NAIL, 6 OR MORE 03/26/2020 49165-MDWXEGQ NAIL, 6 OR MORE 12/23/2019 99337-WFUDABD NAIL, 6 OR MORE 06/11/2020 43107-LNNAQNT NAIL, 6 OR MORE 08/20/2020 70590-YPZBNPW NAIL, 6 OR MORE 10/22/2020 26963-PJDNWED NAIL, 6 OR MORE 12/31/2020 83632-XFSZYZU NAIL, 6 OR MORE 04/19/2021 22324-VUELGXS NAIL, 6 OR MORE 07/15/2021 19737-ERZPMQG NAIL, 6 OR MORE 10/04/2021 78243-SECTUSZ NAIL, 6 OR MORE 02/08/2022 93257-JLICHPS NAIL, 6 OR MORE 04/25/2022 21198-JJWQTKX NAIL, 6 OR MORE 08/01/2022 12903-DOUPNCV NAIL, 6 OR MORE 11/03/2022 86522-WCNDDFZ NAIL, 1-5 04/03/2015 13939-VCYZMQN NAIL, 1-5 06/16/2015 51749-GGYUFPT NAIL, 1-5 07/28/2014 04054-UUOMKLK NAIL, 1-5 04/30/2012 24361-XCTOBWH NAIL, 1-5 11/27/2014 04599-IUAMTLE NAIL, 1-5 01/26/2015 03942-Dqpp Destruction, 1-14 04/25/2022 86439-Vnuk Destruction, 1-14 08/01/2022 53704-Dxhy Destruction, 1-14 11/03/2022 94448-Jjfxbeyh Plate 09/09/2024 01486-Sojckegx Plate 10/09/2024 81567-Nqeiiisx Plate 02/26/2024 91882-Xoxjuecg Plate 11/13/2023 77447-Nujfcubp Plate 11/03/2022 49976-Zjiynhsz Plate 02/02/2023 68530-Tqksbluz Plate 02/08/2022 65840-Uishlmhl Plate 10/04/2021 94585-Qoubhaze Plate 10/28/2019 94573-Xnhrxfng Plate 04/19/2021 53524-Ykkeootu Plate 12/31/2020 94552-Zqhihusu Plate 01/16/2020 61031-Avxevzme Plate 01/23/2020 66483-Hqrhtxqs Plate 03/05/2019 59553-Nqdvhuya Plate 05/13/2019 55177-Cffkleku Plate 08/27/2018 96368-Eshwaayt Plate 01/29/2018 08042-Ccmnrlsh Plate 06/12/2018 16719-Uiisqxjs Plate 01/26/2015 76025-Xtknworz Plate 04/03/2015 35030-Qblzbvpa Plate 01/27/2014 00002-Vfozbemj Plate 03/13/2014 89275-Hufomcen Plate 07/29/2013 28375-Ibjeguxj Plate 11/27/2012 70166-Vdqlxear Plate 03/09/2012 91537-Enxlmsuh Plate 04/30/2012 16246-Qddfhyqi Plate 12/05/2011 28903-Vlehitdx Plate 02/23/2012 65572-Eckvuecs Plate 11/03/2011 87532-Jtcmisnp Plate 09/19/2011 08396-Hqrbrpng Plate 05/05/2011 50076-Eobyjnum Plate 06/06/2011 22892-Ymkomgpj Plate 07/28/2014 12961-Ueazkcxf Plate 11/27/2014 69454-Pcwhmfad Plate 07/11/2016 53303-Gkghwqgi Plate 04/25/2016 02324-Qkfayhyy Plate 09/14/2017 73949-Sjujmorq Plate 04/11/2017 45233-Jlujwvet Plate 02/08/2016 04808-Boilyxbo Plate 11/17/2016 83750-Xvxmdxwo Plate 09/08/2016 02092-Eryrntdn Plate Each Additional 70210-Xxlwzsrg Plate Each Additional 09/2011 46561-Qbbiqvjo Plate Each Additional 27590-Hiuwsaev Plate Each Additional 01/2012 17988-Tskbqric Plate Each Additional 15044-Tkfimyex Plate Each Additional 10318-Conghmqz Plate Each Additional 61680-Ksmkqtwo Plate Each Additional 07/2020 11341-Yqdcrgyl Plate Each Additional 03/2022 02817-PAK 01/11/2012 79249- Debride <25 sq cm 01/30/2012 99823- Debride <25 sq cm 02/23/2012 25371- Debride <25 sq cm 04/30/2012 64624- Debride <25 sq cm 04/24/2017 99222- Debride <25 sq cm 01/30/2020 57489- Debride <25 sq cm 02/13/2020 55483- Debride <25 sq cm 02/27/2020 98527- Debride <25 sq cm 01/23/2020 87148- Debride <25 sq cm 03/26/2020 19482- Debride <25 sq cm 04/06/2020 81150-KVWMRUR SKIN/TISSUE 03/09/2012 17286 I&D ABSCESS- SIMPLE,SINGLE 014 33849 I&D ABSCESS- SIMPLE,SINGLE 022 57075-UIBQ SKIN LESIONS, OVER 4 10/05/19 22 75631-TSGS SKIN LESIONS, OVER 4 08/01/19 23 31972-INBR SKIN LESIONS, OVER 4 04/25/20 22 40472-JVNO SKIN LESIONS, OVER 4 02/03/20 23 11131-ZOEH SKIN LESIONS, OVER 4 11/04/19 23 03977-CGYY SKIN LESIONS, OVER 4 12/23/19 20 15593-WSJL SKIN LESIONS, OVER 4 10/28/19 20 49885-IWZM SKIN LESIONS, OVER 4 08/27/19 19 41525-HPIS SKIN LESIONS, OVER 4 06/12/20 18 68215-FTQB SKIN LESIONS, OVER 4 01/30/20 18 63531-ETRI SKIN LESIONS, OVER 4 11/06/19 19 43934-MQRJ SKIN LESIONS, OVER 4 03/05/20 19 20539-CFGY SKIN LESIONS, OVER 4 05/13/20 19 30520-XCZZ SKIN LESIONS, OVER 4 08/05/19 20 00992-HFQS SKIN LESIONS, OVER 4 04/03/20 15 82795-ACDZ SKIN LESIONS, OVER 4 07/05/19 18 32991-KFXE SKIN LESIONS, OVER 4 04/11/20 17 19027-IVBI SKIN LESIONS, OVER 4 11/21/19 18 59424-KEOF SKIN LESIONS, OVER 4 09/15/19 18 87955-SXIQ SKIN LESIONS, OVER 4 11/18/19 17 18023-LJKQ SKIN LESIONS, OVER 4 09/09/19 17 48764-JEPY SKIN LESIONS, OVER 4 02/03/20 17 61530-WILA SKIN LESIONS, OVER 4 04/25/20 16 76540-HDJJ SKIN LESIONS, OVER 4 07/11/19 17 59097-ONIZ SKIN LESIONS, OVER 4 02/08/20 16 07021-LAHC SKIN LESIONS, OVER 4 12/02/19 16 37592-KFVU SKIN LESIONS, OVER 4 09/04/19 16 05683-FHGX SKIN LESIONS, OVER 4 06/16/20 15 65960-SFUA SKIN LESIONS, OVER 4 11/13/19 24 62446-ZEDI SKIN LESIONS, OVER 4 02/26/20 24 88966-PJLK SKIN LESIONS, OVER 4 08/10/19 24 70802-TBON SKIN LESIONS, OVER 4 05/11/20 23 98885-FISZ SKIN LESIONS, OVER 4 09/10/19 25 30528-TCBD SKIN LESIONS, OVER 4 06/03/20 24 44448-KLHU SKIN LESIONS, 2 TO 4 03/26/20 09846-AACU SKIN LESIONS, 2 TO 4 06/11/20 14930-ZTDA SKIN LESIONS, 2 TO 4 08/20/19 92867-GGGZ SKIN LESIONS, 2 TO 4 02/09/20 26555-EGKE SKIN LESIONS, 2 TO 4 07/15/19 29311-SWWD SKIN LESIONS, 2 TO 4 04/19/20 87577-KCHC SKIN LESIONS, 2 TO 4 01/01/20 13955-MOTE SKIN LESIONS, 2 TO 4 10/23/19 W5842-LIJTPRKV DYSTROPHIC NAILS ANY # Next Appt Details Provider Name:Francine Ibrahim , 12/16/2024 02:30:00 PM, [address] [place] [address], [phone], Insurance Providers Payer Name Payer Address Payer Phone Subscriber Number Group Number Insured Name Patient Relationship to Insured Coverage Start Date Coverage End Date [employer] Medicare Adv-[id number] [address] [address] [place] [address] [id number] Alireza Gabriel Self - patient is the insured 6 Medical (General) History Medical History History ICD Code mumps back, hip, knee pain type II diabetes Hay fever Surgical History Surgery Date(Month/Year) left knee arthroscopy 1995 left knee replacement 08/28/2012
--- OUTSIDE RECORDS SUMMARY | 2024-11-16 08:41 | XMS_ITS ---
Author Organization [facility] Address [address] [place] [address] Care Team Providers Care Hearing Aid Repair Technician Name Role Phone John PENNY, Latoya Primary Care Provider Isma Vu [phone] Allergies Allergen (clinical drug ingredient) Drug/Non Drug Allergy documented on EMR Reaction Allergy Type Onset Date Status levofloxacin Levofloxacin hives Drug Allergy A ctive ZyrTEC fatigue Drug Allergy Active Keflex hives Drug Allergy Active tamsulosin Flomax Unknown Drug Allergy Active REASON FOR VISIT Patient presents today for fe def anemia Medications Medication SIG (Take, Route, Frequency, Duration) [...] Once a day for 30 day(s) Active Vital Signs Blood pressure systolic 00 mm Hg 04/09/20 24 Blood pressure diastolic 00 mm Hg 024 Height 70 in 04/09/2024 Weight 244 lbs 04/09/2024 BMI 35.01 kg/m2 04/09/2024 Encounters Encounter Location Date Provider Diagnosis [facility] [address] [place] [address] 04/09/2024 Isma Yepez Iron deficiency anemia D50.9 [...] advised of his progress. Plan Of Treatment Next Appt Details Follow Up: 1 Year, Reason: Provider Name:Isma Yepez , 04/08/2025 09:30:00 AM, [address] [place] [address], [address], [place], [address], Progress Notes * ALIX ROWAN MDOB: [birth year] (78 yo M)Acc No.[id number]:04/09/2024 Progress Notes Patient:?HARPAL ALIX Amol Provider:?Isma Yepez MD :1945???Age:78 Y???Sex:Male Simón e:04/09/2024 Address:[address] [place] [address] Pcp:Latoya Lopez MD Subjective: * Chief Complaints: * ???Patient presents today fo r fe def anemia * HPI: ???incontinence:? I saw Mr. Rowan in followup today in regard to his previous anemia and question of celiac disease. ?Since I last saw Mr. Rowan in August he has been feeling well. He enjoys a good appetite and denies any significant heartburn or dysphagia. His bowel movements have remained fairly regular and he has not noticed any signs of hematochezia nor melena. He denies any significant diarrhea, abdominal pain, jaundice, nor unintentional weight loss. ?His laboratories in August revealed a hemoglobin of 11.9 with a normal MCV, normal iron and iron saturation, normal ferritin level, normal TSH, normal B12 and folate levels, and negative laboratory for celiac disease. A followup hemoglobin in October with Dr. Bolivar was actually higher at a level of 12.6 with a normal MCV. Of note, he is not on a gluten-free diet. * ROS:?General/Constitutional:?Change in appetite?denies.?Chills?denies.?Fatigue?denies.?Ophthalmologic:?Patient denies? Negative..?ENT:?Patient denies?Negative..?Respiratory:?Patient denies?No coughing/hemoptysis..?Cardiovascular:?Patient denies? No chest pain/orthopnea..?Gastrointestinal:?Comments?See HPI for details.?Genitourinary:?Patient denies? No dysuria/hematuria..?Musculoskeletal:?Patient denies? No specific arthralgias/myalgias..?Skin:?Patient denies?No rash/pruritus..?Neurologic:?Patient denies? No headaches/seizures..?Psychiatric:?Patient denies?Negative..? * Medical History:? * Surgical History:?Left knee replacement in 08/2012 Deviated septum * Hospitalization/Major Diagno stic Procedure:?No Hospitalization History. * Family History:?Father: dece ased.?Mother: .? No colorectal cancer. * Social History:?Tobacco Use:?Tobacco Use/Smoking?Are you a: nonsmoker.?Drugs/Alcohol:?Alcohol Screen?Points: 0, Interpretation: Negative.?Miscellaneous:?Marital status: . Occupation: retired. ???Nonsmoker; no alcohol. * Medications:?TakingMetoprolo l Succinate 25 MG Capsule ER 24 Hour Sprinkle 1 capsule Orally Once a dayJanuvia 100 MG Tablet 1 tablet Orally Once a daySimvastatin 10 MG Tablet 1 tablet in the evening Orally every other eveningFurosemide 40 MG Tablet TK 1 T PO QD Oral metFORMIN HCl 1000 MG Tablet TK 1 T PO BID WF Orally Once a dayglipiZIDE ER 2.5 MG Tablet Extended Release 24 Hour TK 1 T PO QD IN THE MORNING WITH ANGELA Oral 1 tablet in the morning with breakfastEliquis 5 MG Tablet TK 1 T PO BID Oral Bydureon 2 MG Pen-injector 1 Subcutaneous once a weekTaking Metoprolol Succinate 25 MG Capsule ER 24 Hour Sprinkle 1 capsule Orally Once a dayTaking Januvia 100 MG Tablet 1 tablet Orally Once a dayTaking Simvastatin 10 MG Tablet 1 tablet in the evening Orally every other eveningTaking Furosemide 40 MG Tablet TK 1 T PO QD Oral Taking metFORMIN HCl 1000 MG Tablet TK 1 T PO BID WF Orally Once a dayTaking glipiZIDE ER 2.5 MG Tablet Extended Release 24 Hour TK 1 T PO QD IN THE MORNING WITH ANGELA Oral 1 tablet in the morning with breakfastTaking Eliquis 5 MG Tablet TK 1 T PO BID Oral Taking Bydureon 2 MG Pen-injector 1 Subcutaneous once a weekNot-Taking/PRNFeroSul 325 (65 Fe) MG Tablet TAKE 1 TABLET BY MOUTH DAILY Oral Medication List reviewed and reconciled with the patientNot-Taking/PRN FeroSul 325 (65 Fe) MG Tablet TAKE 1 TABLET BY MOUTH DAILY Oral Medication List reviewed and reconciled with the patient * Allergies:?Keflex: hivesZyrT EC: fatigueLevofloxacin: hivesFlomaxyes[Allergies Verified] Objective: * Vitals:?Wt: 244 lbs, Ht: 70 in, BMI:35.01 Index, BP: 00/00 mm Hg. * Examination: ???General Examination: ?GENERAL APPEARANCE:?pleasant, well nourished, well developed, in no acute distress.?EYES:?sclera non-icteric.?ORAL CAVITY:?mucosa moist.?NECK/THYROID:?no cervical lymphadenopathy, neck supple.?SKIN:?nonjaundiced, no spider angiomata..?HEART:?S1, S2 normal.?LUNGS:?clear to auscultation bilaterally.?ABDOMEN:?normal bowel sounds, no guarding or rigidity, no hepatosplenomegaly, no masses palpable, soft, nontender, nondistended..?EXTREMITIES:?no edema.?NEUROLOGIC:?alert and oriented.? Assessment: * Assessment: 1.?Iron deficiency anemia - D50.9 (Primary)? Overall, Mr. Rowan appears q uite well and is not having any new [...] to keep you advised of his progress. Plan: * Treatment: * Procedure Codes:?1036F TOBAC CO [id number] BP SCR NOT PRFRM REC REASON NOS * Preventive Medicine:? ??Screenings:?Fall Risk Screening?Fall Risk Assessment:?No falls in the past year,?Screening:?No falls in the past year,?Assessment:?Not performed, no reason specified,?Plan of Care:?Not documented, no reason specified.? * Follow Up:?1 Year * * Sign off status: Completed true * Provider:?Isma Yepez MD Date:? 024 Generated for Maytei ailyn/Marquis/eTransmitting on:?11/16/2024 08:41 AM EDT History and Physical Notes * HPI (History of Present Illness) Category Sub-Category Detail Notes Category Not es incontinence I saw Mr. Rowan in followup today in regard to his previous anemia and question of celiac disease. Since I last saw Mr. Rowan in August he has been feeling well. He enjoys a good appetite and denies any significant heartburn or dysphagia. His bowel movements have remained fairly regular and he has not noticed any signs of hematochezia nor melena. He denies any significant diarrhea, abdominal pain, jaundice, nor unintentional weight loss. His laboratories in August revealed a hemoglobin of 11.9 with a normal MCV, normal iron and iron saturation, normal ferritin level, normal TSH, normal B12 and folate levels, and negative laboratory for celiac disease. A followup hemoglobin in October with Dr. Bolivar was actually higher at a level of 12.6 with a normal MCV. Of note, he is not on a gluten-free diet. Examination Category Sub-Category Detail Notes Category Not es General Examination GENERAL APPEARANCE: pleasant , well [...]
--- OUTSIDE RECORDS SUMMARY | 2024-11-16 08:41 | XMS_ITS ---
Author Organization [facility] Address [address] [place] [address] Care Team Providers Care Buck Presser Name Role Phone John PENNY, Latoya Primary Care Provider Isma Vu [phone] Allergies Allergen (clinical drug ingredient) Drug/Non Drug Allergy documented on EMR Reaction Allergy Type Onset Date Status levofloxacin Levofloxacin hives Drug Allergy A ctive ZyrTEC fatigue Drug Allergy Active Keflex hives Drug Allergy Active tamsulosin Flomax Unknown Drug Allergy Active Results Component Value Reference Range Notes Ferritin Reviewed date:08/09/2023 06:26:15 PM Interpretation: Performing Lab:[facility], [address] [place] [place] [phone] Notes/Report: Ferritin 242 20-250 ng/mL TSH reflex Free T4 Reviewed date:08/09/2023 06:25:48 PM Interpretation: Performing Lab:[facility], [address] [place] [phone] Notes/Report: TSH reflex Free T4 3.51 0.32-4.0 uIU/mL REASON FOR VISIT Patient presents today for iron de, anemia Medications Medication SIG (Take, Route, Frequency, [...] ing Orally every other evening Activ e Problems Problem Type SNOMED Code ICD Code Onset Dates Problem Status W/U Status Risk Notes Problem [id number] Constipation, unspecified constipation type (K59.00) Active confirmed Vital Signs Temperature 96.9 degrees Fahrenheit 08/08/19 24 Blood pressure systolic 00 mm Hg 08/08/19 24 Blood pressure diastolic 00 mm Hg 024 Height 70 in 08/08/2023 Weight 244 lbs 08/08/2023 BMI 35.01 kg/m2 08/08/2023 Encounters Encounter Location Date Provider Diagnosis [facility] [address] [place] [address] 08/08/2023 Isma Yepez Other iron deficienc y anemia D50.8 and Constipation, unspecified constipation type K59.00 Assessments Encounter Date Diagnosis (ICD Code) Assessment Notes Treatment Notes Treatment Clinical Notes Section Notes 08/08/2023 Other iron deficiency anemia (ICD-10 - D50.8) Overall, Duncan appears well and did not seem to be having any worrisome GI complaints. In regard to his intermittent constipation and bloating I did recommend that he try some MiraLax on a daily or every other day basis to help improve his bowel regimen and alleviate those symptoms. I did advise him to be sure to be having fruits, vegetables, and plenty of fluids on a daily basis as well. I shall check some thyroid studies on him in this regard. In regard to his anemia and underlying suspicion of celiac disease, I shall check a followup blood count, iron profile, a B12 and folate level, and celiac disease profile. We did discuss celiac disease today and he is not particularly inclined to go on a gluten-free diet at this point in his life. We did review that celiac disease could certainly contribute to the anemia and even his current GI complaints. I will plan to see him again later in the year, but advised him to contact me before that if he has any problems or questions I can be of assistance with. Duncan was comfortable with this plan. Thank you again for allowing me to participate in Duncan's care. I shall continue to keep you advised of his progress. 08/08/2023 Constipation, unspecified constipation type (ICD-10 - K59.00) Use Miralax once or twice a day every day for the constipation, but adjust as needed Overall, Duncan appears well and did not seem to be having any worrisome GI complaints. In regard to his intermittent constipation and bloating I did recommend that he try some MiraLax on a daily or every other day basis to help improve his bowel regimen and alleviate those symptoms. I did advise him to be sure to be having fruits, vegetables, and plenty of fluids on a daily basis as well. I shall check some thyroid studies on him in this regard. In regard to his anemia and underlying suspicion of celiac disease, I shall check a followup blood count, iron profile, a B12 and folate level, and celiac disease profile. We did discuss celiac disease today and he is not particularly inclined to go on a gluten-free diet at this point in his life. We did review that celiac disease could certainly contribute to the anemia and even his current GI complaints. I will plan to see him again later in the year, but advised him to contact me before that if he has any problems or questions I can be of assistance with. Duncan was comfortable with this plan. Thank you again for allowing me to participate in Duncan's care. I shall continue to keep you advised of his progress. Plan Of Treatment Treatment Notes Assessment Notes Constipation, unspecified constipation [...] Name:Isma Yepez , 04/08/2025 09:30:00 AM, [address], [address], [place], [address], Progress Notes * ALIX ROWAN MDOB: 4 (78 yo M)Acc No.[id number]:08/08/2023 Progress Notes Patient:?ALIX ROWAN Provider:?Isma Yepez MD :1945???Age:78 Y???Sex:Male Simón e:08/08/2023 Address:[address] [place] [id number] Pcp:Latoya Lopez MD Subjective: * Chief Complaints: * ???Patient presents today fo r iron de, anemia * HPI: ???incontinence:? I saw Duncan in followup today in regard to his iron deficiency anemia, question of celiac disease, and constipation. ?Since I last saw Duncan in April of 2022 he reports that he has basically been feeling well. He has been eating comfortably with a regular diet and has not tried a gluten-free diet in regard to the suspicion of celiac disease raised on his previous duodenal biopsies in early 2021. His subsequent serologies for celiac disease were all negative. He does describe some abdominal bloating and gas in relation to intermittent constipation. He describes one or 2 days of a normal and easy bowel movement, but this is then followed by 2 or 3 days of constipation and no bowel movements. He is not using any particular medication or regimen for his bowel movements. He has not noticed any signs of bleeding. He denies any significant heartburn, dysphagia, nausea, vomiting, nor anorexia. He denies any particular abdominal pains, jaundice, nor weight loss. ?He does remain on one iron supplement daily. ?His laboratories from last October revealed a hemoglobin 11.8 with MCV of 88. A liver profile was normal and his ferritin level was 251 in August of 2022. * ROS:?General/Constitutional:?Change in appetite?denies.?Chills?denies.?Fatigue?denies.?Ophthalmologic:?Patient denies? Negative..?ENT:?Patient denies?Negative..?Respiratory:?Patient denies?No coughing/hemoptysis..?Cardiovascular:?Patient denies? No chest pain/orthopnea..?Gastrointestinal:?Comments?See HPI for details.?Genitourinary:?Patient denies? No dysuria/hematuria..?Musculoskeletal:?Patient denies? No specific arthralgias/myalgias..?Skin:?Patient denies?No rash/pruritus..?Neurologic:?Patient denies? No headaches/seizures..?Psychiatric:?Patient denies?Negative..? * Medical History:? * Surgical History:?Left knee replacement in 08/2012 Deviated septum * Hospitalization/Major Diagno stic Procedure:? * Family History:?Father: dece ased.?Mother: .? No [...] 2 MG Pen-injector 1 Subcutaneous once a weekFeroSul 325 (65 Fe) MG Tablet TAKE 1 TABLET BY MOUTH DAILY Oral Taking Metoprolol Succinate 25 MG Capsule ER 24 [...] MG Pen-injector 1 Subcutaneous once a weekTaking FeroSul 325 (65 Fe) MG Tablet TAKE 1 TABLET BY MOUTH DAILY Oral DiscontinuedVitamin D3 50 MCG (1999) Capsule 1 capsule Orally Once a dayTamsulosin HCl 0.4 MG Capsule 1 capsule Orally Once a daySildenafil Citrate 100 MG Tablet 1 tablet as needed Orally Once a dayLisinopril 20 MG Tablet 1 tablet Orally Once a dayMetoprolol Tartrate 50 MG Tablet 1 tablet with food Orally Twice a dayMedication List reviewed and reconciled with the patientDiscontinued Vitamin D3 50 MCG (1999) Capsule 1 capsule Orally Once a dayDiscontinued Tamsulosin HCl 0.4 MG Capsule 1 capsule Orally Once a dayDiscontinued Sildenafil Citrate 100 MG Tablet 1 tablet as needed Orally Once a dayDiscontinued Lisinopril 20 MG Tablet 1 tablet Orally Once a dayDiscontinued Metoprolol Tartrate 50 MG Tablet 1 tablet with food Orally Twice a dayMedication List reviewed and reconciled with the patient * Allergies:?Keflex: hivesZyrT EC: fatigueLevofloxacin: hivesFlomaxyes[Allergies Verified] Objective: * Vitals:?Wt: 244 lbs, Ht: 70 in, BMI:35.01 Index, BP: 00/00 mm Hg, Temp: 96.9. * Examination: ???General Examination: ?GENERAL APPEARANCE:?pleasant, well nourished, well developed, in no acute distress.?EYES:?sclera non-icteric.?ORAL CAVITY:?mucosa moist.?NECK/THYROID:?no cervical lymphadenopathy, neck supple.?SKIN:?nonjaundiced, no spider angiomata..?HEART:?S1, S2 normal.?LUNGS:?clear to auscultation bilaterally.?ABDOMEN:?normal bowel sounds, no guarding or rigidity, no hepatosplenomegaly, no masses palpable, soft, nontender, nondistended..?EXTREMITIES:?no edema.?NEUROLOGIC:?alert and oriented.? Assessment: * Assessment: 1.?Other iron deficiency ane cristian - D50.8 (Primary)?2.?Constipation, unspecified constipation type - K59.00? Overall, Duncan appears well an d did not seem to be having any worrisome GI complaints. In regard to his intermittent constipation and bloating I did recommend that he try some MiraLax on a daily or every other day basis to help improve his bowel regimen and alleviate those symptoms. I did advise him to be sure to be having fruits, vegetables, and plenty of fluids on a daily basis as well. I shall check some thyroid studies on him in this regard. In regard to his anemia and underlying suspicion of celiac disease, I shall check a followup blood count, iron profile, a B12 and folate level, and celiac disease profile. We did discuss celiac disease today and he is not particularly inclined to go on a gluten-free diet at this point in his life. We did review that celiac disease could certainly contribute to the anemia and even his current GI complaints. I will plan to see him again later in the year, but advised him to contact me before that if he has any problems or questions I can be of assistance with. Duncan was comfortable with this plan. Thank you again for allowing me to participate in Duncan's care. I shall continue to keep you advised of his progress. Plan: * Treatment: ? Value Reference Range ?Ferritin 242 20-250 - ng/mL 2.?Constipation, unspecified constipation type?LAB: TSH reflex Free T4* ? Value Reference Range ?TSH reflex Free T4 3.51 0.32 -4.0 - uIU/mL Notes: Use Miralax once or twice a day every day for the constipation, but adjust as needed? * Procedure Codes:?1036F TOBAC CO [id number] BP SCR NOT PRFRM REC REASON NOS * Preventive Medicine:? ??Counseling:?Care goal follow-up plan:?Above Normal BMI Follow-up?Giving encouragement to exercise,?BMI management provided?Yes.? * Follow Up:?2023 * * Sign off status: Completed true * Provider:?Isma Yepez MD Date:? 024 Generated for Maytei ailyn/Marquis/eTransmitting on:?11/16/2024 08:41 AM EDT History and Physical Notes * HPI (History of Present Illness) Category Sub-Category Detail Notes Category Not es incontinence I saw Duncan in followup today in regard to his iron deficiency anemia, question of celiac disease, and constipation. Since I last saw Duncan in April of 2022 he reports that he has basically been feeling well. He has been eating comfortably with a regular diet and has not tried a gluten-free diet in regard to the suspicion of celiac disease raised on his previous duodenal biopsies in early 2021. His subsequent serologies for celiac disease were all negative. He does describe some abdominal bloating and gas in relation to intermittent constipation. He describes one or 2 days of a normal and easy bowel movement, but this is then followed by 2 or 3 days of constipation and no bowel movements. He is not using any particular medication or regimen for his bowel movements. He has not noticed any signs of bleeding. He denies any significant heartburn, dysphagia, nausea, vomiting, nor anorexia. He denies any particular abdominal pains, jaundice, nor weight loss. He does remain on one iron supplement daily. His laboratories from last October revealed a hemoglobin 11.8 with MCV of 88. A liver profile was normal and his ferritin level was 251 in August of 2022. Examination Category Sub-Category Detail Notes Category Not [...]
--- OUTSIDE RECORDS SUMMARY | 2024-11-16 08:41 | XMS_ITS ---
Author Organization [facility] Address [address] [place] [address] Care Team Providers Care Automobile Parts Assembler Name Role Phone John PENNY, Latoya Negrete Primary Care Provider Un available Black, Francine Unavailable [phone] Allergies Allergen (clinical drug ingredient) Drug/Non Drug Allergy documented on EMR Reaction Allergy Type Onset Date Status Ceftin rash Drug Allergy Active Keflex Unknown Drug Allergy Active cefaclor Cefaclor rash Drug Allergy Active REASON FOR VISIT At Risk Footcare, Swelling, Toe Irritation, Ingrown Nail Medications Medication SIG (Take, Route, Frequency, Duration) Notes Start Date End Date Status Loprox Not-Taking Actos Not-Taking Doxycycline Hyclate 100 MG 1 tablet Orally Once a day for 10 day(s) 03/26/2020 Not-Taking Bactrim DS 800-160 MG 1 tablet Orally Tw ice a day for 10 day(s) 01/30/2020 Not-Taking Cipro 500 MG 1 tablet Orally ever y 12 hrs for 10 day(s) Not-Taking Metoprolol Tartrate 25 MG Orally Active Eliquis 5 MG as directed Orally Active Ammonium Lactate 12 % 1 application Exte rnally Twice a day for 30 days Active Compression Stockings 20-30mm Hg 1 pair wear daily for 30 days Active Flomax Active Simvastatin 5 MG 1 tablet every eveni ng Orally Once a day for 30 day(s) Active Lisinopril Active glyBURIDE Active Enablex Active Social History Tobacco Use: Social History Observation Description Date Details (start date - stop date) Never Smoker NA - NA Tobacco Use/Smoking Question Answer Notes Are you a: nonsmoker Additional Findings: Tobacco Non-User Current no n-smoker Tobacco use other than smoking: Question Answer Notes Are you an other tobacco user? No Vital Signs Height 5 ft 10 in in 09/09/2024 Weight 242 lbs 09/09/2024 BMI 34.72 kg/m2 09/09/2024 Blood pressure systolic 120 mm Hg 09/10/19 25 Blood pressure diastolic 68 mm Hg 025 Procedures Procedure Date Ordered Date Performed Result Body Sit e 24886-ECPIXYL NAIL, 6 OR MORE 09/09/2024 N/A 09233-Iqyxkgyi Plate 09/09/2024 N/A 18944-HQUE SKIN LESIONS, OVER 4 09/09/2024 N/A Encounters Encounter Location Date Provider Diagnosis [facility] [address] [place] [address] 09/09/2024 Francine Black Type 2 diabetes mellitus with diabetic polyneuropathy E11.42 ; Other hammer toe(s) (acquired), right foot M20.41 ; Tinea unguium B35.1 ; Ingrown nail L60.0 ; Edema, lower extremity R60.0 and Other hammer toe(s) (acquired), left foot M20.42 Assessments Encounter Date Diagnosis (ICD Code) Assessment Notes Treatment Notes Treatment Clinical Notes Section Notes 09/09/2024 Type 2 diabetes mellitus with diabetic polyneuropathy (ICD-10 - E11.42) 09/09/2024 Other hammer toe(s) (acquired), right foot (ICD-10 - M20.41) Patient Educated with: DIABETIC FOOT CARE INSTRUCTIONS. pdf (DIABETIC FOOT CARE INSTRUCTIONS. pdf) 09/09/2024 Tinea unguium (ICD-10 - B35.1) 09/09/2024 Ingrown nail (ICD-10 - L60.0) 09/09/2024 Edema, lower extremity (ICD-10 - R60.0) 09/09/2024 Other hammer toe(s) (acquired), left foot (ICD-10 - M20.42) Plan Of Treatment Treatment Notes Assessment Notes Other hammer toe(s) (acquired), right fo ot Patient Educated with: DIABETIC FOOT CARE INSTRUCTIONS.pdf (DIABETIC FOOT CARE INSTRUCTIONS.pdf) Pending Test Test Name Order Date 11890-HUMKTEO NAIL, 6 OR MORE 09/09/2024 70388-Fivivsah Plate 09/09/2024 77938-BWWH SKIN LESIONS, OVER 4 09/10/19 25 Next Appt Details Follow Up: 2 Weeks,prnFernando on: Provider Name:Francine Ibrahim , 12/16/2024 02:30:00 PM, [address] [place], [address], Procedure Notes * Category Sub-Category Detail Notes [...] Motrin was recommended for pain or discomfort (59005), DIABETES: Matricectomy deferred at this time due to diabetes risk Anesthesia , was deferred - HONEY ROPATHY: 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 Therefore, debridement to affected nail(s), as described in exam ( TA, T2, T3, T4, T5, T6, T7, T8, T9, ), was performed exclusively by the physician of record to reduce/remove overall nail length, girth, thickness, subungual debris, and necrotic tissue, by manual and/or electrical means through the use of a nail nipper and/or dremel-type crystal flat grinder, to a more viable healthy nail plate [...] to maintain effectiveness in symptomatic relief - 29458 Patient chooses debridement treatmen t only; no pharmaceutical tx Keratoma Treatment Parring or Cutting o f Benign Hyperkeratotic Lesion(s) (-57) More than 4 Lesions - Due to the a t risk nature of the patients medical condition as documented in the exam findings, performance of this keratoderma treatment is medically necessary as its management by an unskilled/untrained nonprofessional would put this patients foot and overall health at risk. Therefore, the benign hyperkeratotic lesions, ( 5 ) in total, locations as stated and described in the exam ( SUB MTH (s),1,5, B/L Plantar Heel(s), , Right ), were pared, and/or cut utilizing a sterile 15 blade, tissue nippers, and/or power dremel instrumentation by the physician of record - 30240 Progress Notes * Alireza ROWAN MDOB: 4 (79 yo M)Acc No.[id number]:09/09/2024 Progress Note Patient:?Alireza ROWAN Provider:?Francine Ibrahim DPM :1945???Age:79 Y???Sex:Male Simón e:09/09/2024 Address:[address] [place], [place] [address] Pcp:Amol Yepez Subjective: * Chief Complaints: * ???At Risk FootcareSwellingT oe IrritationIngrown Nail * HPI: ???At Risk footcare:?Pt States Last PCP Visit:?Date?08/27/2024 ???Swelling:?Location:?Both feet/leg.?Duration:?, several months.?Course:?improved.?Treatment:?compression stockings, elevation.?Toe pain:?Location:?B/L feet.?Duration:?several years.?Course:?worse.?Aggravated by:?shoes, any pressure.?Treatments:?change in shoes.? * ROS:?General/Constitutional:?Nausea?denies.?Vomiting?denies.?Hunger Thirst?denies.?Loss appetite?denies.?Chills?denies.?Fatigue?denies.?Fever?denies.?Night Sweats?denies.?Unexplained weight loss?denies.?Ophthalmologic:?Blurred [...] walking. ?Marital status: , . 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 * Medications:?TakingSimvastat in 5 MG Tablet 1 tablet every evening Orally Once a day Lisinopril glyBURIDE Enablex Flomax Metoprolol Tartrate 25 MG Tablet Orally Eliquis 5 MG Tablet as directed Orally Ammonium Lactate 12 % Cream 1 application Externally Twice a day Compression Stockings 20-30mm Hg closed toe- knee high 1 pair wear daily Taking Simvastatin 5 MG Tablet 1 tablet every evening Orally Once a day Taking Lisinopril Taking glyBURIDE Taking Enablex Taking Flomax Taking Metoprolol Tartrate 25 MG Tablet Orally Taking Eliquis 5 MG Tablet as directed Orally Taking Ammonium Lactate 12 % Cream 1 application Externally Twice a day Taking Compression Stockings 20-30mm Hg closed toe- knee high 1 pair wear daily Not-Taking/PRNLoprox Actos Doxycycline Hyclate 100 MG Tablet 1 [...] size: 11EEE, BP: 120/68 mm Hg, BS: 121, Ht-cm: 177.8 cm, Wt-k.77 kg. * ???Past Orders: ???Lab:HEMOGLOBIN A1C (GLYCO HEMOGLOBIN) (Order Date - 08/03/2024) (Collection Date & Time - 08/03/2024 09:14 AM) ? Value Reference Range ?HEMOGLOBIN A1C % (HH) 5.6 * Examination: ???Ophthalmology Referral: ?DIABETES EYE EXAM?Procedure Performed:?Yes ?Date of Exam Performed?06/02/2023 ?Findings of Diabetic Eye Exam:?no retinopathy?General Examination: ?GENERAL APPEARANCE:?Reveals a pleasant, alert, well nourished, well- developed, well hydrated individual, who demonstrates proper attention to hygiene/body habitus, and is in no acute distress, Pt serves as own historian for office visit today.?ORIENTED:?person, place, and time.?FOOT EXAM:?Lower Extremity Neurological Exam performed:?Yes ?Visual exam of foot performed:?Yes ?Date?09/09/2024 ?Sensory testing performed:?sensations diminished ?Sensory and motor testing performed:?sensations diminished ?Pedal pulse taking performed:?2+ ?Footwear Evaluation?Footwear Evaluation performed:?Yes?Dermatologic: ?SKIN FINDINGS:?Skin exam reveals Keratotic lesion(s) located at, SUB MTH (s),1,5, B/L Plantar Heel(s), , Right ,, Skin exam reveals normal color, texture, elasticity, and turgor. There are no masses, nor excrescences. The interspaces are clear, B/L.?Vascular: ?DP PULSES (B):? 2/4, B/L ,.?PT PULSES [...] no pain on palpation due to neuropathy, ,, TA, T2, T3, T4, T5, T6, T7, T8, T9.?Orthopedic: ?DIGITAL DEFORMITIES:?Digital contracture, PIPJ, 2-5 B/L, incompl-reducible to push-up test, no over, nor underlapping,?there is?evidence of shoe producing skin irritation.?FOOTWEAR:?worn, non-supportive, shoe gear properties exacerbate patient's foot/toe deformity.?Ingrown Nail: ?INSPECTION:?Reveals nail incurvation, pain on palpation, groove hypertrophy, groove ischemia, Medial nail border, T1.? Assessment: * Assessment: 1.?Other hammer toe(s) (acqu ired), right foot - M20.41 (Primary)???Specify :Chronic problem, Worse?2.?Type 2 diabetes mellitus with diabetic polyneuropathy - E11.42???3.?Tinea unguium - B35.1???4.?Ingrown nail - L60.0???5.?Edema, lower extremity - R60.0???Specify :Response to treatment - Improvement???6.?Other hammer toe(s) (acquired), left foot - M20.42???Specify :Chronic problem, Worse??? Plan: * Treatment: 2.?Type 2 diabetes mellitus with diabetic polyneuropathy?Procedure: 70033-UBKO SKIN LESIONS, OVER 4 3.?Tinea unguium?Procedure: 96766-KFOIAHU NAIL, 6 OR MORE 4.?Ingrown nail?Procedure: 54919-Jmnnnrgt Plate * Procedures:?Debride Nail 6-10:?Nail debridement?Due to the clinical pathology outlined in the exam findings, performance of this nail treatment is medically necessary as its management by an unskilled/untrained nonprofessional would put this patients foot and overall health at risk. Therefore, debridement to affected nail(s), as described in exam ( TA, T2, T3, T4, T5, T6, T7, T8, T9, ), was performed exclusively by the physician of record to reduce/remove overall nail length, girth, thickness, subungual debris, and necrotic tissue, by manual and/or electrical means through the use of a nail nipper and/or dremel-type crystal flat grinder, to a more viable healthy nail plate or bed tissue 6- 10 nails in total. Silver nitrate was used for any petechial bleeding as necessary. Definitive antifungal treatment options, both pharmaceutical and surgical, have been reviewed and discussed with the patient. The patient solely prefers the use of intermittent/as needed professional debridement services for their nail condition and understands the need for additional periodic treatments to maintain effectiveness in symptomatic relief - 48847.?Patient chooses ?debridement treatment only; no pharmaceutical tx.?Keratoma Treatment:?Parring or Cutting of Benign Hyperkeratotic Lesion(s)?(-57) More than 4 Lesions - Due to the at risk nature of the patients medical condition as documented in the exam findings, performance of this keratoderma treatment is medically necessary as its management by an unskilled/untrained nonprofessional would put this patients foot and overall health at risk. Therefore, the benign hyperkeratotic lesions, ( 5 ) in total, locations as stated and described in the exam ( SUB MTH (s),1,5, B/L Plantar Heel(s), , Right ), were pared, and/or cut utilizing a sterile 15 blade, tissue nippers, and/or power dremel instrumentation by the physician of record - 15888.?Nail Avulsion:?Location?, Medial nail border, T1.?Anesthesia?, was deferred - NEUROPATHY: patient has medically documented [...] Motrin was recommended for pain or discomfort (97955), DIABETES: Matricectomy deferred at this time due to diabetes risk.? * Procedure Codes:?38487 DEBRI DE NAIL, 6 OR MORE, Modifiers: XS 16890 Avulsion Plate, Modifiers: T1 21280 TRIM SKIN LESIONS, OVER 4, Modifiers: XS * Preventive Medicine:? ??Counseling:?Discussion:?-14: Office or other outpatient visit for the evaluation and management of an established patient, which required a medically appropriate history and/or examination and MODERATE level of DECISION MAKING for: 1 OR MORE CHRONIC PROBLEM(S) THATS WORSENING, 2 STABLE CHRONIC PROBLEMS, A NEWLY DIAGNOSED PROBLEM WITH UNCERTAIN PROGNOSIS, AN ACUTE COMPLICATED INJURY WITH MULTIPLE TREATMENT OPTIONS, OR AN ACUTE PROBLEM WITH ACCOMPANYING SYSTEMIC SYMPTOMS, THAT POSE(S) A MODERATE RISK OF MORBIDITY. THIS CONDITION MAY ALSO INCLUDE RX DRUG MANAGEMENT, OR A DECISON FOR MINOR SURGERY. The visit on the day of the [...] have encouraged the patient to call the office.?Digital Surgery:?We elected to try conservative treatment at the present time, due to the patients age,and medical history.?Digital Treatment:?HT- I explained to the patient the possible etiologies of Hammertoes, including genetics/foot type/shoegear/activity level/exercise routine and the risks/benefits of all the different treatment options for their pain including: No treatment at all, Rest, Ice, New/supportive/wider/deeper Shoe gear, Digital Padding/Strapping/Taping/Bracing/Gel protective sleeves, Foot/Ankle AFO Bracing, Stretching exercises, Deep Tissue Massage, Arch support/shoe inserts with splay metatarsal padding, and Custom orthoses. I insisted that any digital devices be removed daily and not worn overnight for safety. The patient is to carefully examine the toes daily for any skin irritation while using any splinting or padding device. The advantages and disadvantages of each option were discussed and the patients questions re: shoe gear, padding, custom vs prefabricated inserts, activity level, and consistency in home treatment regimens for optimal success were answered to their verbally confirmed satisfaction, Recomm, rest, ice, proper shoegear, padding, orthotics, anti-inflammatories or tylenol as tolerated, topical analgesics, cortisone injections.?Edema:?Discussed other tx options for the patients condition, The patient wishes to continue with the present treatment plan for their condition given its success.?Shoe Gear Counseling:?SHOE Rx - The patient was counseled in great detail on their muscoloskeletal foot and toe deformities which coincided with the dermatological presentations visualized on exam. We discussed how their deformities put the integrity of their feet at risk for potential pedal complications which makes the accomidative diabetic shoes and cutomizable inserts medically necessary. We discussed the different shoe and insert treatment types and options, as well as the important advantages for adhering to regularly wearing these accomidative devices daily. The patient was made aware of the fact that a failure to abide by these recommedations may be deleterious to their foot health as they are able to prevent many pedal complications such as skin irritation, skin ulceration, infection, and even loss of toe/foot/leg/or life. Time was also spent with the patient dispensing and discussing proper diabetic footcare techniques including daily skin moisturization, daily foot inspection for any interruption in skin integrity including open lesions, or sign of infection such as redness/malodor/drainage/swelling. Also discussed and recommended were procedures regarding daily shoe inspection for the presence of internal foreign bodies as well as any visualized irregular shoe or insert wear. Patient questions re: shoes, inserts, and self foot inspections were answered to their satisfaction as the patient verbally confirmed a full understanding of the above information. , Patient DEFERS recommended Extra Depth Orthopedic pressure-accommodative shoes against medical advice.? ??Screening/Special Tests:?Fall Risk?Screening:?No falls in the past year ?FALLS: Screening for Future Fall Risk?Have you had any falls with injury in the past year??No * Follow Up:?2 Weeks,prn * Images: * Sign off status: Completed true * Provider:?Francine Ibrahim DPM Date:?2024 Generated for Floyd robertson/Marquis/eTrobbyitting on:?11/16/2024 08:40 AM EDT History and Physical Notes * HPI (History of Present Illness) Category Sub-Category Detail Notes Category Not es Toe pain Location: B/L feet Duration: several years Course: worse Aggravated by: shoes, any pressure Treatments: change in shoes At Risk footcare Pt States Last PCP Visit: Date: Swelling Location: Both feet/leg Duration: , several months Course: improved Treatment: compression stocking s, elevation Examination Category Sub-Category Detail Notes Category Not es Ingrown Nail INSPECTION: Reveals nail inc urvation, pain on palpation, groove hypertrophy, groove ischemia, Medial nail border, T1 Neurological SENSORY: Neurological exa m demonstrates, reduced light touch sensation, Cont. reduced sharp/dull discrimination , reduced vibration sensation, 5.07 monofilament test performed at plantar aspects of 5 varied sites per foot shows sensation, absent, at Forefoot, B/L , Dermatologic SKIN FINDINGS: Skin exam reveal s Keratotic lesion(s) located at, SUB MTH (s),1,5, B/L Plantar Heel(s), , Right ,, Skin exam reveals normal color, texture, elasticity, and turgor. There are no masses, nor excrescences. The interspaces are clear, B/L ULCER: VERRUCA: Orthopedic FOOTWEAR EVALUATION: worn, non-s upportive, shoe gear properties exacerbate patient's foot/toe deformity DIGITAL DEFORMITIES: Digital contracture , PIPJ, 2-5 B/L, incompl-reducible to push-up test, no over, nor underlapping, there is evidence of shoe producing skin irritation General Examination GENERAL APPEARANCE: Reveals a pleasant, alert, well nourished, well-developed, well hydrated individual, who demonstrates proper attention to hygiene/body habitus, and is in no acute distress, Pt serves as own historian for office visit today FOOT EXAM: Lower Extremity Neurological Exa m performed:: Yes Visual exam of foot performed:: Yes Date: 09/09/2024 Sensory testing performed:: sensations d iminished Sensory and motor testing performed:: se nsations diminished Pedal pulse taking performed:: 2+ ORIENTED: person, place, and t yehuda Footwear Evaluation Footwear Evaluation performe d:: Yes Ophthalmology Referral DIABETES EYE EXAM Procedure Perform [...] no pain on palpation due to neuropathy, ,, TA, T2, T3, T4, T5, T6, T7, T8, T9
--- OUTSIDE RECORDS SUMMARY | 2024-11-16 08:42 | XMS_ITS ---
Author Organization [facility] Address [address] [place] [address] Care Team Providers Care Performance Analyst Name Role Phone John PENNY, Latoya Primary Care Provider Isma Vu [phone] REASON FOR VISIT Patient presents today for an iron def anemia Encounters Encounter Location Date Provider Diagnosis [facility] [address] [place] [address] 07/27/2023 Isma Yepez Plan Of Treatment Next Appt Details Provider Name:Isma Yepez , 04/08/2025 09:30:00 AM, [address], [address], [place], [address], Progress Notes * ALIX ROWAN MDOB: (79 yo M)Acc No.[id number]:07/27/2023 Progress Notes Patient:?ALIX ROWAN Provider:?Isma Yepez MD :1945???Age:78 Y???Sex:Male Simón e:07/27/2023 Address:[address] [place], [place] [id number] Pcp:Latoya Lopez MD Subjective: * Chief Complaints: * ???1. Patient presents today for an iron def anemia. * Medical History:? Objective: * Vitals:? Assessment: Plan: * Treatment: * * The named appointment provid er may or may not be the originator of this progress note, and it is not deemed complete until electronically signed by the appointment provider. Sign off status: Pending * Provider:?Isma Yepez MD Date:? 024 Generated for Floyd robertson/Marquis/Lorenzo on:?11/16/2024 08:41 AM EDT
--- OUTSIDE RECORDS SUMMARY | 2024-11-16 08:42 | XMS_ITS ---
[facility] Address [address] [place] [address] Care Team Providers Care Precision Dancer Name Role Phone John PENNY, Latoya Negrete Primary Care Provider Un available Black, Francine Unavailable [phone] Allergies Allergen (clinical drug ingredient) Drug/Non Drug Allergy documented on EMR Reaction Allergy Type Onset Date Status Ceftin rash Drug Allergy Active Keflex Unknown Drug Allergy Active cefaclor Cefaclor rash Drug Allergy Active REASON FOR VISIT Ingrown Nail Medications Medication SIG (Take, Route, Frequency, Duration) Notes Start Date End Date Status Loprox Not-Taking Compression Stockings 20-30mm Hg 1 pair wear daily for 30 days Active Ammonium Lactate 12 % 1 application Exte rnally Twice a day for 30 days Active Eliquis 5 MG as directed Orally Active Metoprolol Tartrate 25 MG Orally Active Enablex Active glyBURIDE Active Lisinopril Active Simvastatin 5 MG 1 tablet every eveni ng Orally Once a day for 30 day(s) Active Flomax Active Actos Not-Taking Cipro 500 MG 1 tablet Orally ever y 12 hrs for 10 day(s) Not-Taking Bactrim DS 800-160 MG 1 tablet Orally Tw ice a day for 10 day(s) 01/30/2020 Not-Taking Doxycycline Hyclate 100 MG 1 tablet Orally Once a day for 10 day(s) 03/26/2020 Not-Taking Social History Tobacco Use: Social History Observation [...] ast year? No Points 0 Interpretation Negative Vital Signs Height 5 ft 10 in in 10/09/2024 Weight 242 lbs 10/09/2024 BMI 34.72 kg/m2 10/09/2024 Blood pressure systolic 120 mm Hg 10/10/19 25 Blood pressure diastolic 68 mm Hg 025 Procedures Procedure Date Ordered Date Performed Result Body Sit e 58646-Vfnwvzhk Plate 10/09/2024 N/A Encounters Encounter Location Date Provider Diagnosis [facility] [address] [address] 10/09/2024 Francine Ibrahim Ingrown nail L60.0 a nd Type 2 diabetes mellitus with diabetic polyneuropathy E11.42 Assessments Encounter Date Diagnosis (ICD Code) Assessment Notes Treatment Notes Treatment Clinical Notes Section Notes 10/09/2024 Ingrown nail (ICD-10 - L60.0) 10/09/2024 Type 2 diabetes mellitus with diabetic polyneuropathy (ICD-10 - E11.42) Plan Of Treatment Pending Test Test Name Order Date 93399-Drtsdolh Plate 10/09/2024 Next Appt Details Follow Up: 2 Weeks,prn, Reas on: Provider Name:Francine Ibrahim , 12/16/2024 02:30:00 PM, [address] [place], [address], Procedure Notes * Category Sub-Category Detail Notes [...] Motrin was recommended for pain or discomfort - 96394, Pt DEFERS matricectomy Anesthesia , was deferred - HONEY ROPATHY: patient has medically documented neuropathic condition affecting sensation Location , Lateral nail borde r, T8 Progress Notes * Alireza ROWAN MDOB: 4 (79 yo M)Acc No.[id number]:10/09/2024 Progress Notes Patient:?Alireza ROWAN Provider:?Francine Ibrahim DPM :1945???Age:79 Y???Sex:Male Simón e:10/09/2024 Address:[address] [place], [place] [address] Pcp:Amol Yepez Subjective: * Chief Complaints: * ???Ingrown Nail * HPI: ???At Risk footcare:?Pt States Last PCP Visit:?Date?08/27/2024 * ROS:?General/Constitutional:?Nausea?denies.?Vomiting?denies.?Hunger Thirst?denies.?Loss appetite?denies.?Chills?denies.?Fatigue?denies.?Fever?denies.?Night Sweats?denies.?Unexplained weight loss?denies.?Ophthalmologic:?Blurred vision?denies.?Red eye?denies.?HEENTM:?Dentures?denies.?Dizziness?denies.?Glasses/contacts?admits.?Retinopathy?de nies.?Blurred/double vision?denies.?TMJ?denies.?Discharge/drainage?denies.?Implants?denies.?Hard of hearing denies.?Difficulty chewing/swallowing/speaking?denies.?Nose bleeds?denies.?Sore mouth?denies.?Swollen glands?denies.?Respiratory:?On Oxygen?denies.?Pneumonia/pleurisy?denies.?Bronchitis?denies.?Emphysema?denies.?C oughing?denies.?Cough blood?denies.?Shortness of breath?denies.?Wheezing?denies.?Cardiovascular:?Pacemaker?denies.?MVP?denies.?WPW?denies.?CHF?denies.?Heart attack?denies.?Septal defect?denies.?Rapid beat?denies.?Chest pain ?denies.?Atrial Fib.?denies.?Murmur/Palpitations?denies.?Gastrointestinal:?Hemorrhoids?denies.?Stomach/Abdominal pain?denies.?Dark blood stool?denies.?Irritable bowel ?denies.?Constipation?denies.?Diarrhea?denies.?Vomiting?denies.?Hematology:?Swelling?, admits.?Bruising?denies.?Bleeding problem?denies.?Genitourinary:?Blood urine?denies.?Frequent/Painfu/urination/bladder control?denies.?Kidney stones?denies.?Infection (UTI)?denies.?Nephropathy?denies.?Musculoskeletal:?Hammertoes?denies.?Bunions?denies.?Scoliosis/kyphosis?denies.?Muscle cramps / walking?denies.?Generalized aches and pains?denies.?Weakness?denies.?Integ.:?Shane?denies.?Scars?denies.?Corns/calluses?admits.?Ingrown nails?admits.?Painful nails?admits.?Rashes?denies.?Neurologic:?Difficulty sleeping?denies.?Bipolar?denies.?Brain disorder?denies.?Balance trouble?denies.?Confusion?denies.?Fainting/blackouts?denies.?Headache?denies.?Tr emors?denies.? * Medical History:? * Surgical History:?left knee arthroscopy 1996left knee replacement 08/28/2012 * Hospitalization/Major Diagno stic Procedure:?Denies Past Hospitalization * Family History:?Mother: dece ased, diagnosed with Diabetic - NIDDM.?Father: .?Daughter(s): alive.?Son(s): alive.?Paternal aunt: cancer.?Spouse: alive.?4 son(s) , 1 daughter(s) . .? * Social History:?Tobacco Use:?Tobacco use other than smoking?Are you an other tobacco user??No ?Tobacco Control (Standard)?Tobacco use:?Nonsmoker ?Additional Findings: Tobacco non-user?Current nonsmoker ???Drugs/Alcohol:?Drugs?Have you used drugs other than those for medical reasons in the past 12 months??No ???Miscellaneous:?Caffeine: yes, frequency:, 2 cups per day. ?Children: yes, 5. ?Exercise: yes, walking. ?Marital status: , . 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 ???Drug/Alcohol:?AUDIT-C (Standard)?Did you have a drink containing alcohol in the past year??No ?Points?0 ?Interpretation?Negative * Medications:?TakingSimvastat in 5 MG Tablet 1 [...] in, Wt: 242, BMI: 34.72, Shoe size: 11eee, BP: 120/68 mm Hg, BS: 96, Ht-cm: 177.8 cm, Wt-k.77 kg. * ???Past Orders: ???Lab:HEMOGLOBIN A1C (GLYCO HEMOGLOBIN) (Order Date - 08/03/2024) (Collection Date & Time - 08/03/2024 09:14 AM) ? Value Reference Range ?HEMOGLOBIN A1C % (HH) 5.6 * Examination: ???Ophthalmology Referral: ?DIABETES EYE EXAM?Procedure Performed:?No ?Diabetic Retinopathy Screening:?No?General Examination: ?GENERAL APPEARANCE:?Reveals a pleasant, alert, well nourished, well- developed, well hydrated individual, who demonstrates proper attention to hygiene/body habitus, and is in no acute distress, Pt serves as own historian for office visit today.?ORIENTED:?person, place, and time.?Footwear Evaluation?Footwear Evaluation performed:?Yes?Vascular: ?DP PULSES (B):? 2/4, B/L ,.?PT PULSES (B):? 2/4, B/L.?GUERLINE'S SIGN:?absent, B/L.?PALPABLE CORDS:?absent, B/L.?Ingrown Nail: ?INSPECTION:?Reveals nail incurvation, pain on palpation, groove hypertrophy, groove ischemia, Lateral nail border, T8.? Assessment: * Assessment: 1.?Type 2 diabetes mellitus with diabetic polyneuropathy - E11.42???2.?Ingrown nail - L60.0 (Primary)??? Plan: * Treatment: * Procedures:?Nail Avulsion:?Location?, Lateral nail border, T8.?Anesthesia?, was deferred - NEUROPATHY: patient has medically [...] Motrin was recommended for pain or discomfort - 28854, Pt DEFERS matricectomy.? * Procedure Codes:?73654 Avuls ion Plate, Modifiers: T8 * Preventive Medicine:? ??Screening/Special Tests:?Fall Risk?Screening:?No falls in the past year ?FALLS: Screening for Future Fall Risk?Have you had any falls with injury in the past year??No * Follow Up:?2 Weeks,prn * Images: * Sign off status: Completed true * Provider:?KAMARI JallohM Date:?2024 Generated for Maytei ailyn/Marquis/eTransmitting on:?11/16/2024 08:41 AM EDT History and Physical Notes * HPI (History of Present Illness) Category Sub-Category Detail Notes Category Not es At Risk footcare Pt States Last PCP Visit: Date: Examination Category Sub-Category Detail Notes Category Not es Ingrown Nail INSPECTION: Reveals nail inc urvation, pain on palpation, groove hypertrophy, groove ischemia, Lateral nail border, T8 General Examination GENERAL APPEARANCE: Reveals a pleasant, alert, well nourished, well-developed, well hydrated individual, who demonstrates proper attention to hygiene/body habitus, and is in no acute distress, Pt serves as own historian for office visit today ORIENTED: person, place, and t yehuda Footwear Evaluation Footwear Evaluation performe d:: Yes Ophthalmology Referral DIABETES EYE EXAM Procedure Perform ed:: No Diabetic Retinopathy Screening:: No Vascular DP PULSES (B): 2/4, B/L , PT PULSES (B): 2/4, B/L GUERLINE'S SIGN: absent, B/L PALPABLE CORDS: absent, B/L
[2024-11-16 11:12] LABS: MANUAL DIFF FLAG NO
[2024-11-16 11:33] LABS: Basophils Percent Auto 0.4 % (0-2); Eosinophils Absolute Auto 0.1 X10*3/uL (0.0-0.4); Eosinophils Percent Auto 1.6 % (0-4); Hematocrit 34.7 % (42.0-52.0); Hemoglobin 11.2 g/dl (14.0-18.0); Imm Gran Abs Auto 0.04 X10*3/uL (0.00-0.03); Imm Gran Pct Auto 0.7 % (0.0-0.4); Lymphocytes Absolute Auto 1.1 X10*3/uL (1.2-4.9); Lymphocytes Percent Auto 19.7 % (20-40); Mean Corpuscular HGB Conc 32.3 g/dl (31.0-36.0); Mean Corpuscular Hemoglobin 27.8 pg (27.0-33.0); Mean Corpuscular Volume 86.1 fL (80.0-98.0); Monocytes Absolute Auto 0.4 X10*3/uL (0.1-1.2); Monocytes Percent Auto 7.4 % (2-11); Neutrophils Absolute Auto 3.9 x10*3/uL (2.0-8.3); Neutrophils Percent Auto 70.2 % (45-73); Platelet Count 158 X10*3/uL (160-400); Red Blood Count 4.03 X10*6/uL (4.60-5.80); White Blood Count 5.5 X10*3/uL (4.8-10.8)
[2024-11-16 11:42] LABS: Alanine Aminotransferase 7 U/L (0-40); Aspartate Amino Transferase 13 U/L (5-37); Cholesterol 102 mg/dL (<200); Estimated Average Glucose 126 mg/dL; HDL Cholesterol 35 mg/dL (>40); Hemoglobin A1C 127.8512 umol/L; Iron 101 mcg/dL (45-160); LDL Cholesterol Calculated 58 mg/dL (<100); Percent Iron Saturation 49 % (15-50); Total Hemoglobin (HGBA1C) 3014.5232 umol/L; Total Iron Binding Capacity 208 mcg/dL (228-428); Triglycerides 49 mg/dL (<150); Unsaturated Iron Binding 107 ug/dL
[2024-11-16 11:59] LABS: Vitamin D 25-OH Total 30.2 ng/mL (>30)
[2024-11-16 12:09] LABS: Folate 6.4 ng/mL (> or = 4.0); Vitamin B12 260 pg/mL (200-900)
== END 2024-11-16 08:39 | disposition home or self-care (01) ==
LOC: HO.HMGCLDS 08:38
PROVIDERS: PCP Internal Medicine; Visit Provider Internal Medicine
DX: E11.9 Type 2 diabetes mellitus without complications (principal); D50.9 Iron deficiency anemia, unspecified; E78.5 Hyperlipidemia, unspecified; I10 Essential (primary) hypertension
CPT/HCPCS: 36415; 80061; 82306; 82607; 82746; 83036; 83540; 84450; 84460; 85025

== ENCOUNTER 2024-11-21 11:26 | Outpatient (AMB) | payer MEDICARE, SELFPAY ==
--- OUTSIDE RECORDS SUMMARY | 2024-11-21 12:03 | XMS_ITS ---
Author Organization [facility] Address [address] [place] [address] Care Team Providers Care Student Affairs Dean Name Role Phone John PENNY, Latoya Negrete Primary Care Provider Un available Francine Ibrahim Unavailable [phone] REASON FOR VISIT ingrown nail Encounters Encounter Location Date Provider Diagnosis [address] [address] 10/08/2024 Francine Ibrahim Plan Of Treatment Next Appt Details Provider Name:Francine Warner Patrice , 12/16/2024 02:30:00 PM, [address] [place] [address], [phone], Progress Notes * Alireza ROWAN MDOB: (79 yo M)Acc No.[id number]:10/08/2024 Patient:?Alireza ROWAN :1945???Age:79 Y???Sex:Male Address:[address] [place] [address], [address] * true * Date:? Generated for Printi ng/Fadrug/eTransmitting on:?11/21/2024 12:03 PM EDT
--- OUTSIDE RECORDS SUMMARY | 2024-11-21 12:04 | XMS_ITS ---
Author Organization [facility] Address [address] [place] [address] Care Team Providers Care Electronics Test Engineer Name Role Phone John PENNY, Latoya Primary Care Provider Isma Vu [phone] Allergies Allergen (clinical drug ingredient) Drug/Non Drug [...] 04/09/2024 Encounters Encounter Location Date Provider Diagnosis [facility] [address] [place] [address] 04/09/2024 Isma Yepez Iron deficiency anemia D50.9 [...] Provider Name:Isma Yepez , 04/08/2025 09:30:00 AM, [address] [place] [address], [address], [place], [address], Progress Notes * ALIX ROWAN MDOB: 4 (78 yo M)Acc No.[id number]:04/09/2024 Progress Notes Patient:?HARPAL ALIX Amol Provider:?Isma Yepez MD :1945???Age:78 Y???Sex:Male Simón e:04/09/2024 Address:[address] [place] [address] Pcp:Latoya Lopez MD Subjective: * Chief Complaints: [...] * Treatment: * Procedure Codes:?1036F TOBAC CO NON-IRMEU2944 BP SCR NOT PRFRM REC REASON NOS * Preventive Medicine:? ??Screenings:?Fall Risk Screening?Fall Risk Assessment:?No falls in the past year,?Screening:?No falls in the past year,?Assessment:?Not performed, no reason specified,?Plan of Care:?Not documented, no reason specified.? * Follow Up:?1 Year * * Sign off status: Completed true * Provider:?Isma Yepez MD Date:? 024 Generated for Maytei ailyn/Marquis/eTransmitting on:?11/21/2024 12:04 PM EDT History and Physical Notes * HPI [...]
--- OUTSIDE RECORDS SUMMARY | 2024-11-21 12:04 | XMS_ITS ---
Author Organization [facility] Address [address] [place] [address] Care Team Providers Care Distribution Designer Name Role Phone John PENNY, Latoya Primary Care Provider Isma Vu [phone] Allergies Allergen (clinical drug ingredient) Drug/Non Drug Allergy documented on EMR Reaction Allergy Type Onset Date Status levofloxacin Levofloxacin hives Drug Allergy A ctive ZyrTEC fatigue Drug Allergy Active Keflex hives Drug Allergy Active tamsulosin Flomax Unknown Drug Allergy Active Results Component Value Reference Range Notes Ferritin Reviewed date:08/09/2023 06:26:15 PM Interpretation: Performing Lab:[facility], [address] [place] [phone] Notes/Report: Ferritin 242 20-250 ng/mL TSH reflex Free T4 Reviewed date:08/09/2023 06:25:48 PM Interpretation: Performing Lab:[facility], [address] [place] [phone] Notes/Report: TSH reflex Free T4 3.51 0.32-4.0 [...] Problem Status W/U Status Risk Notes Problem 44236367 Constipation, unspecified constipation type (K59.00) Active confirmed Vital Signs Temperature 96.9 degrees Fahrenheit 08/08/19 24 Blood pressure systolic 00 mm Hg 08/08/19 24 Blood pressure diastolic 00 mm Hg 024 Height 70 in 08/08/2023 Weight 244 lbs 08/08/2023 BMI 35.01 kg/m2 08/08/2023 Encounters Encounter Location Date Provider Diagnosis [facility] [address] [place] [address] 08/08/2023 Isma Yepez Other iron deficienc y [...] Name:Isma Yepez , 04/08/2025 09:30:00 AM, [address], [address], [place], [address], Progress Notes * ALIX ROWAN MDOB: 4 (78 yo M)Acc No.[id number]:08/08/2023 Progress Notes Patient:?ALIX ROWAN Provider:?Isma Yepez MD :1945???Age:78 Y???Sex:Male Simón e:08/08/2023 Address:[address] [place], [place] [id number] Pcp:Latoya Lopez MD Subjective: * Chief Complaints: [...] as needed? * Procedure Codes:?1036F TOBAC CO NON-GKRRA5818 BP SCR NOT PRFRM REC REASON NOS [...]
--- OUTSIDE RECORDS SUMMARY | 2024-11-21 12:04 | XMS_ITS | Patient Health Record ---
Author Organization [facility] Address [address] [place] [address] Care Team Providers Care Hardware Installation Coordinator Name Role Phone John PENNY, Latoya Negrete Primary Care Provider Un available Black, Francine Unavailable [phone] Allergies Allergen (clinical drug ingredient) Drug/Non Drug [...] Problem Acquired hammer toe of right foot (6203875880315901 ) Other hammer toe(s) (acquired), right foot (M20.41) Active confirmed Problem Acquired hammer toe of left foot (3176286927216426 ) Other hammer toe(s) (acquired), left foot (M20.42) Active confirmed Problem Non-pressure ulcer lower limb (314849284) Non-pressure chronic ulcer of other part of right foot limited to breakdown of skin (L97.511) Active confirmed Problem Polyneuropathy due to type 2 diabetes mellitus (040558781) Type 2 diabetes mellitus with diabetic polyneuropathy (E11.42) Active confirmed Problem 256889260 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) Active confirmed Vital Signs Blood pressure diastolic 68 mm Hg 10/09/2024 Height 5 ft 10 in in 10/09/2024 Blood pressure systolic 120 mm Hg 10/09/2024 Weight 242 lbs 10/09/2024 BMI 34.72 kg/m2 10/09/2024 Procedures Procedure Date Ordered Date Performed Result Body Sit e 16966-JTHQJTU NAIL, 6 OR MORE 02/26/2024 N/A 24349-Sycymuwm Plate 02/26/2024 N/A 82195-QPCS SKIN LESIONS, OVER 4 02/26/2024 N/A 37493-XLUKWOH NAIL, 6 OR MORE 09/09/2024 N/A 36525-Tqdgrrba Plate 09/09/2024 N/A 37559-TWWS SKIN LESIONS, OVER 4 09/09/2024 N/A 36925-Aehznvcs Plate 10/09/2024 N/A 87824-SWBK SKIN LESIONS, OVER 4 06/03/2024 N/A 27477-PPAVCND NAIL, 6 OR MORE 06/03/2024 N/A Encounters Encounter Location Date Provider Diagnosis [address] [address] 02/26/2024 Francine Black Type 2 diabetes mellitus with diabetic polyneuropathy E11.42 ; Tinea unguium B35.1 and Ingrown nail L60.[address] [address] 06/03/2024 Francine Black Type 2 diabetes mellitus with diabetic polyneuropathy E11.42 ; Tinea unguium B35.1 ; Ingrown nail L60.0 and Edema, lower extremity R60.[address] [address] 09/09/2024 Francine Black Type 2 diabetes mellitus with diabetic polyneuropathy E11.42 ; Other hammer toe(s) (acquired), right foot M20.41 ; Tinea unguium B35.1 ; Ingrown nail L60.0 ; Edema, lower extremity R60.0 and Other hammer toe(s) (acquired), left foot M20.[address] [address] 10/09/2024 Francine Black Ingrown nail L60.0 a nd Type 2 diabetes mellitus with diabetic polyneuropathy E11.42 [facility] [place] [address] [place] [address] 10/08/2024 Francine Ibrahim Assessments Encounter Date Diagnosis [...] Order Date Microalbumin, 24 hr Urine 06/23/2015 01958-IYQPFVL NAIL, 6 OR MORE 02/02/2023 30087-FHZUKDN NAIL, 6 OR MORE 05/11/2023 22570-CFVBPGP NAIL, 6 OR MORE 08/10/2023 47261-EKEXLLW NAIL, 6 OR MORE 11/13/2023 10077-CAGIKYG NAIL, 6 OR MORE 02/26/2024 14487-VDHDJBK NAIL, 6 OR MORE 06/03/2024 17566-AVRGSGF NAIL, 6 OR MORE 09/09/2024 70018-UGAECII NAIL, 6 OR MORE 05/05/2011 64271-SDYKPZE NAIL, 6 OR MORE 09/19/2011 36700-EZDYZHA NAIL, 6 OR MORE 11/03/2011 60276-QPCJDOZ NAIL, 6 OR MORE 12/05/2011 15299-VKEMGLW NAIL, 6 OR MORE 11/27/2012 21624-PIOTDFU NAIL, 6 OR MORE 07/29/2013 87009-QGJSGUH NAIL, 6 OR MORE 01/27/2014 99771-YSJUDQT NAIL, 6 OR MORE 09/04/2015 22052-ZLJQJVB NAIL, 6 OR MORE 12/02/2015 71732-FHBXNMS NAIL, 6 OR MORE 02/08/2016 58603-SYHZERN NAIL, 6 OR MORE 04/25/2016 21724-CUBZHXE NAIL, 6 OR MORE 07/11/2016 71475-NJBUDYP NAIL, 6 OR MORE 09/08/2016 49754-ARXEHQE NAIL, 6 OR MORE 11/17/2016 49333-PNPTVGE NAIL, 6 OR MORE 02/02/2017 84703-XKNKNDF NAIL, 6 OR MORE 04/11/2017 21271-KKSILPF NAIL, 6 OR MORE 07/05/2017 82155-WTUFUFA NAIL, 6 OR MORE 09/14/2017 19278-EJXLLSG NAIL, 6 OR MORE 11/20/2017 65602-UZYDAHL NAIL, 6 OR MORE 01/29/2018 84022-EJWBVDI NAIL, 6 OR MORE 06/12/2018 52344-LKKILXR NAIL, 6 OR MORE 08/27/2018 42175-TKJHRSU NAIL, 6 OR MORE 11/05/2018 06215-RYENWBU NAIL, 6 OR MORE 03/05/2019 16867-ZZYREIA NAIL, 6 OR MORE 05/13/2019 32186-ESJTQQS NAIL, 6 OR MORE 08/05/2019 27477-PGNSIRT NAIL, 6 OR MORE 10/28/2019 49603-OFUKNYA NAIL, 6 OR MORE 03/26/2020 10016-JVSUUWH NAIL, 6 OR MORE 12/23/2019 81503-JTFGOOI NAIL, 6 OR MORE 06/11/2020 33420-NOINCNA NAIL, 6 OR MORE 08/20/2020 76257-DVMOBUV NAIL, 6 OR MORE 10/22/2020 77093-NUQAFFQ NAIL, 6 OR MORE 12/31/2020 80747-IJSLXKJ NAIL, 6 OR MORE 04/19/2021 65349-YJHTQBM NAIL, 6 OR MORE 07/15/2021 65776-DNZZQVO NAIL, 6 OR MORE 10/04/2021 84706-NLZDILX NAIL, 6 OR MORE 02/08/2022 77996-GUPHMHJ NAIL, 6 OR MORE 04/25/2022 99245-NZFYSMW NAIL, 6 OR MORE 08/01/2022 05023-RDVPHWU NAIL, 6 OR MORE 11/03/2022 64839-KWNFPGZ NAIL, 1-5 04/03/2015 56760-YAXUKTT NAIL, 1-5 06/16/2015 97768-AJAMNYR NAIL, 1-5 07/28/2014 81342-VIAYLUY NAIL, 1-5 04/30/2012 90808-NJDWYBQ NAIL, 1-5 11/27/2014 30500-ZCHUZMN NAIL, 1-5 01/26/2015 35685-Edby Destruction, 1-14 04/25/2022 36520-Lglj Destruction, 1-14 08/01/2022 06660-Yrmy Destruction, 1-14 11/03/2022 37397-Fvjlkhml Plate 09/09/2024 05463-Exjcllrp Plate 10/09/2024 23944-Vsjazujl Plate 02/26/2024 34122-Eloxwqqg Plate 11/13/2023 43661-Rzylorpi Plate 11/03/2022 32755-Pidghjas Plate 02/02/2023 92048-Kjxzpyif Plate 02/08/2022 18207-Mkckeulv Plate 10/04/2021 81193-Cuvczrbx Plate 10/28/2019 57506-Pvmlpgdk Plate 04/19/2021 98454-Bqqkxpmo Plate 12/31/2020 10258-Jiadheen Plate 01/16/2020 96460-Fkphsiyy Plate 01/23/2020 19834-Gmgksizq Plate 03/05/2019 95930-Wjgydqvh Plate 05/13/2019 04355-Panbqxts Plate 08/27/2018 26828-Guqxvjqc Plate 01/29/2018 57289-Mcexbvpp Plate 06/12/2018 41845-Ohddpvio Plate 01/26/2015 51779-Brtykogp Plate 04/03/2015 58989-Azcudsho Plate 01/27/2014 53857-Gjfkgurx Plate 03/13/2014 92035-Xflupkyr Plate 07/29/2013 04244-Zdpeffsz Plate 11/27/2012 98576-Eoijyttl Plate 03/09/2012 58728-Crckoahj Plate 04/30/2012 75146-Bmxiffcq Plate 12/05/2011 62063-Zncksxct Plate 02/23/2012 71029-Xahrlxoa Plate 11/03/2011 71578-Nujvthmo Plate 09/19/2011 59866-Sztifkxc Plate 05/05/2011 01169-Rtzpxlub Plate 06/06/2011 95263-Zfpuqgks Plate 07/28/2014 61321-Vlftcigy Plate 11/27/2014 87499-Fdciobhm Plate 07/11/2016 91127-Kkcjalso Plate 04/25/2016 34415-Qjmalmvg Plate 09/14/2017 52939-Mrxoxwct Plate 04/11/2017 89281-Vzlrvgcc Plate 02/08/2016 95583-Zxvzmgae Plate 11/17/2016 12808-Knfhwnix Plate 09/08/2016 50895-Sjzmrnlt Plate Each Additional 33341-Ncdxpfki Plate Each Additional 09/2011 46566-Numgsnyk Plate Each Additional 35754-Upgkaaom Plate Each Additional 01/2012 40660-Yxfgksjs Plate Each Additional 93252-Efoxpvdg Plate Each Additional 54826-Butbmfmw Plate Each Additional 35913-Xxsteapw Plate Each Additional 07/2020 28538-Qjgdzrrh Plate Each Additional 03/2022 56195-CRF 01/11/2012 52750- Debride <25 sq cm 01/30/2012 99805- Debride <25 sq cm 02/23/2012 53075- Debride <25 sq cm 04/30/2012 70596- Debride <25 sq cm 04/24/2017 81456- Debride <25 sq cm 01/30/2020 01222- Debride <25 sq cm 02/13/2020 93867- Debride <25 sq cm 02/27/2020 47390- Debride <25 sq cm 01/23/2020 24292- Debride <25 sq cm 03/26/2020 59910- Debride <25 sq cm 04/06/2020 26417-ZCARYBN SKIN/TISSUE 03/09/2012 21544 I&D ABSCESS- SIMPLE,SINGLE 014 32684 I&D ABSCESS- SIMPLE,SINGLE 022 56467-CPTP SKIN LESIONS, OVER 4 10/05/19 22 18462-DOSE SKIN LESIONS, OVER 4 08/01/19 23 76843-FKMW SKIN LESIONS, OVER 4 04/25/20 22 89231-ADWW SKIN LESIONS, OVER 4 02/03/20 23 13308-SRUM SKIN LESIONS, OVER 4 11/04/19 23 41689-TWTM SKIN LESIONS, OVER 4 12/23/19 20 76725-RBOA SKIN LESIONS, OVER 4 10/28/19 20 27269-VRLP SKIN LESIONS, OVER 4 08/27/19 19 10849-ZVCL SKIN LESIONS, OVER 4 06/12/20 18 24027-WJTD SKIN LESIONS, OVER 4 01/30/20 18 66844-NMAK SKIN LESIONS, OVER 4 11/06/19 19 08820-NQMZ SKIN LESIONS, OVER 4 03/05/20 19 26473-WZGS SKIN LESIONS, OVER 4 05/13/20 19 31680-FUNQ SKIN LESIONS, OVER 4 08/05/19 20 43380-GXDD SKIN LESIONS, OVER 4 04/03/20 15 46383-YSVA SKIN LESIONS, OVER 4 07/05/19 18 96973-WPCU SKIN LESIONS, OVER 4 04/11/20 17 68923-VWDO SKIN LESIONS, OVER 4 11/21/19 18 68303-HIQQ SKIN LESIONS, OVER 4 09/15/19 18 42447-BCHV SKIN LESIONS, OVER 4 11/18/19 17 76389-JPIP SKIN LESIONS, OVER 4 09/09/19 17 70896-HTZR SKIN LESIONS, OVER 4 02/03/20 17 07012-KWLY SKIN LESIONS, OVER 4 04/25/20 16 06192-WRSN SKIN LESIONS, OVER 4 07/11/19 17 00143-NBYO SKIN LESIONS, OVER 4 02/08/20 16 30616-NSEA SKIN LESIONS, OVER 4 12/02/19 16 52376-YFHU SKIN LESIONS, OVER 4 09/04/19 16 78163-KYCE SKIN LESIONS, OVER 4 06/16/20 15 26615-HSYC SKIN LESIONS, OVER 4 11/13/19 24 60050-TYPI SKIN LESIONS, OVER 4 02/26/20 24 87906-BEXS SKIN LESIONS, OVER 4 08/10/19 24 13759-OVJI SKIN LESIONS, OVER 4 05/11/20 23 89198-ZGFV SKIN LESIONS, OVER 4 09/10/19 25 92669-JRWV SKIN LESIONS, OVER 4 06/03/20 24 59541-HYZA SKIN LESIONS, 2 TO 4 03/26/20 80905-TEYN SKIN LESIONS, 2 TO 4 06/11/20 63236-WDEK SKIN LESIONS, 2 TO 4 08/20/19 26106-TWRK SKIN LESIONS, 2 TO 4 02/09/20 81904-VYXN SKIN LESIONS, 2 TO 4 07/15/19 14438-BPII SKIN LESIONS, 2 TO 4 04/19/20 50857-QFZS SKIN LESIONS, 2 TO 4 01/01/20 37383-UTZE SKIN LESIONS, 2 TO 4 10/23/19 C3935-XJARJCAC DYSTROPHIC NAILS ANY # Next Appt Details Provider Name:Francine Ibrahim , 12/16/2024 02:30:00 PM, [address] [place] [address], [phone], Insurance Providers Payer Name Payer Address Payer Phone Subscriber Number Group Number Insured Name Patient Relationship to Insured Coverage Start Date Coverage End Date [employer] Medicare Adv-[id number] [address] [address] [place] [address] [id number] Alireza Gabriel Self - patient is the insured 6 Medical (General) History Medical History History ICD Code mumps back, hip, knee pain type II diabetes Hay fever Surgical History Surgery Date(Month/Year) left knee arthroscopy 1995 left knee replacement 08/28/2012
--- OUTSIDE RECORDS SUMMARY | 2024-11-21 12:04 | XMS_ITS ---
Author Organization [facility] Address [address] [place] [address] Care Team Providers Care Pharmacy Intern Name Role Phone John PENNY, Latoya Negrete Primary Care Provider Un available Black, Francine Unavailable [phone] Allergies Allergen (clinical drug ingredient) Drug/Non Drug [...] Ordered Date Performed Result Body Sit e 05266-Krxomgny Plate 10/09/2024 N/A Encounters Encounter Location Date Provider Diagnosis [facility] [address] [address] 10/09/2024 Francine Ibrahim Ingrown nail L60.0 a nd Type 2 diabetes mellitus with diabetic polyneuropathy E11.42 Assessments Encounter Date Diagnosis (ICD Code) Assessment Notes Treatment Notes Treatment Clinical Notes Section Notes 10/09/2024 Ingrown nail (ICD-10 - L60.0) 10/09/2024 Type 2 diabetes mellitus with diabetic polyneuropathy (ICD-10 - E11.42) Plan Of Treatment Pending Test Test Name Order Date 09651-Xtcvuovj Plate 10/09/2024 Next Appt Details Follow Up: 2 Weeks,prn, Reas on: Provider Name:Francine Ibrahim , 12/16/2024 02:30:00 PM, [address] [place], [address], Procedure Notes * Category Sub-Category Detail Notes [...] was recommended for pain or discomfort - 60635, Pt DEFERS matricectomy Anesthesia , was deferred - HONEY ROPATHY: patient has medically documented neuropathic condition affecting sensation Location , Lateral nail borde r, T8 Progress Notes * Alireza ROWAN MDOB: 4 (79 yo M)Acc No.[id number]:10/09/2024 Progress Notes Patient:?Alireza ROWAN Provider:?Francine Ibrahim DPM :1945???Age:79 Y???Sex:Male Simón e:10/09/2024 Address:[address] [place], [place] [address] Pcp:Amol Yepez Subjective: * Chief Complaints: * [...] walking. ?Marital status: , . 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 ???Drug/Alcohol:?AUDIT-C (Standard)?Did you have a drink containing [...] was recommended for pain or discomfort - 97574, Pt DEFERS matricectomy.? * Procedure Codes:?19820 Avuls ion Plate, Modifiers: T8 * Preventive Medicine:? ??Screening/Special Tests:?Fall Risk?Screening:?No falls in the past year ?FALLS: Screening for Future Fall Risk?Have you had any falls with injury in the past year??No * Follow Up:?2 Weeks,prn * Images: * Sign off status: Completed true * Provider:?Francine Ibrahim DPM Date:?2024 Generated for aMytei ailyn/Marquis/eTransmitting on:?11/21/2024 12:04 PM EDT History and [...]
--- OUTSIDE RECORDS SUMMARY | 2024-11-21 12:04 | XMS_ITS ---
[facility] Address [address] [place] [address] Care Team Providers Care Card Dealer Name Role Phone John PENNY, Latoya Negrete Primary Care Provider Un available Black, Francine Unavailable [phone] Allergies Allergen (clinical drug ingredient) Drug/Non Drug [...] Ordered Date Performed Result Body Sit e 04153-YAIVBPV NAIL, 6 OR MORE 09/09/2024 N/A 65686-Wanzqhas Plate 09/09/2024 N/A 00082-JHYD SKIN LESIONS, OVER 4 09/09/2024 N/A Encounters Encounter Location Date Provider Diagnosis [facility] [address] [place] [address] 09/09/2024 Francine Black Type 2 diabetes mellitus [...] INSTRUCTIONS.pdf) Pending Test Test Name Order Date 01850-ASPDOWM NAIL, 6 OR MORE 09/09/2024 43623-Luvefegt Plate 09/09/2024 32666-DFXT SKIN LESIONS, OVER 4 09/10/19 25 Next Appt Details Follow Up: 2 Weeks,prnFernando on: Provider Name:Francine Ibrahim , 12/16/2024 02:30:00 PM, [address] [place], [address], Procedure Notes * Category Sub-Category Detail Notes [...] Motrin was recommended for pain or discomfort (01629), DIABETES: Matricectomy deferred at this time due [...] use of a nail nipper and/or dremel-type carbide grinder, to a more viable healthy nail [...] to maintain effectiveness in symptomatic relief - 00809 Patient chooses debridement treatmen t only; no [...] instrumentation by the physician of record - 51237 Progress Notes * Alireza ROWAN MDOB: 4 (79 yo M)Acc No.[id number]:09/09/2024 Progress Note Patient:?Alireza ROWAN Provider:?Francine Ibrahim DPM :1945???Age:79 Y???Sex:Male Simón e:09/09/2024 Address:[address] [place], [place] [address] Pcp:Amol Yepez Subjective: * Chief Complaints: * [...] walking. ?Marital status: , . 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 * Medications:?TakingSimvastat in 5 MG Tablet 1 [...] 2.?Type 2 diabetes mellitus with diabetic polyneuropathy?Procedure: 38803-SEFR SKIN LESIONS, OVER 4 3.?Tinea unguium?Procedure: 76127-IHNEVIT NAIL, 6 OR MORE 4.?Ingrown nail?Procedure: 37657-Hjqmyzab Plate * Procedures:?Debride Nail 6-10:?Nail debridement?Due to [...] use of a nail nipper and/or dremel-type carbide grinder, to a more viable healthy nail [...] to maintain effectiveness in symptomatic relief - 59753.?Patient chooses ?debridement treatment only; no pharmaceutical tx.?Keratoma [...] instrumentation by the physician of record - 91748.?Nail Avulsion:?Location?, Medial nail border, T1.?Anesthesia?, was deferred [...] Motrin was recommended for pain or discomfort (40052), DIABETES: Matricectomy deferred at this time due to diabetes risk.? * Procedure Codes:?00579 DEBRI DE NAIL, 6 OR MORE, Modifiers: XS 33061 Avulsion Plate, Modifiers: T1 16650 TRIM SKIN LESIONS, OVER 4, Modifiers: XS [...] Provider:?Francine Ibrahim DPM Date:?2024 Generated for Floyd robertson/Marquis/Curlyitting on:?11/21/2024 12:03 PM EDT History and Physical Notes * [...]
--- OUTSIDE RECORDS SUMMARY | 2024-11-21 12:04 | XMS_ITS ---
Author Organization [facility] Address [address] [place] [address] Care Team Providers Care Stage Setting Painter Apprentice Name Role Phone John PENNY, Latoya Primary Care Provider Isma Vu [phone] REASON FOR VISIT Patient presents today for an iron def anemia Encounters Encounter Location Date Provider Diagnosis [facility] [address] [place] [address] 07/27/2023 Isma Yepez Plan Of Treatment Next Appt Details Provider Name:Isma Yepez , 04/08/2025 09:30:00 AM, [address], [address], [place], [address], Progress Notes * ALIX ROWAN MDOB: (79 yo M)Acc No.[id number]:07/27/2023 Progress Notes Patient:?ALIX ROWAN Provider:?Isma Yepez MD :1945???Age:78 Y???Sex:Male Simón e:07/27/2023 Address:[address] [place], [place] [id number] Pcp:Latoya Lopez MD Subjective: * Chief Complaints: [...] MD Date:? 024 Generated for Floyd robertson/Marquis/Lorenzo on:?11/21/2024 12:04 PM EDT
--- OUTSIDE RECORDS SUMMARY | 2024-11-21 12:04 | XMS_ITS | Patient Health Record ---
Author Organization [facility] Address [address] [place] [address] Care Team Providers Care Group Insurance Special Agent Name Role Phone John PENNY, Latoya Primary Care Provider Isma Vu [phone] Allergies Allergen (clinical drug ingredient) Drug/Non Drug [...] Problem Status W/U Status Risk Notes Problem 750574125 Encounter for screening for malignant neoplasm of colon (Z12.11) Active confirmed Problem 271759474 History of adenomatous polyp of colon (Z86.010) Active confirmed Problem Iron deficiency anemia (95989097) Iron deficiency anemia (D50.9) Active confirmed Problem 486265868 Preprocedural examination (Z01.818) Active confirmed Problem History of polyp of colon (712106526) History of colon polyps (Z86.010) Active confirmed Problem 801259834 Long-term use of aspirin therapy (Z79.82) Active confirmed Problem 51419501 Constipation, unspecified constipation type (K59.00) Active confirmed Problem 43056344 Other iron deficiency anemia (D50.8) Active confirmed Problem 668852227 Anticoagulant long-term use (Z79.01) Active confirmed Problem 04167692 Iron deficiency anemia, unspecified iron deficiency anemia type (D50.9) Active confirmed Problem 11406678 Mucosal abnormality of duodenum (K31.9) Active confirmed Problem Diverticulosis of colon (130251624) Diverticulosis of colon (K57.30) Active confirmed Vital Signs Blood pressure diastolic 00 mm Hg 04/09/2024 Height 70 in 04/09/2024 Blood pressure systolic 00 mm Hg 04/09/2024 Weight 244 lbs 04/09/2024 BMI 35.01 kg/m2 04/09/2024 Encounters Encounter Location Date Provider Diagnosis [facility] [address] [place] [address] 04/09/2024 Isma Yepez Iron deficiency anemia D50.9 [...] Provider Name:Isma Yepez , 04/08/2025 09:30:00 AM, [address] [place] [address], [address], [place], [address], Insurance Providers Payer Name Payer Address Payer Phone Subscriber Number Group Number Insured Name Patient Relationship to Insured Coverage Start Date Coverage End Date [facility] [address] [address] [place] [address] [id number] ALIX ROWAN Self - patient is the insured Medical (General) History Medical History History ICD Code Colonoscopy 07-20-2007 and 2003--tubular adenomas removed Hyperlipidemia NIDDM Hypertension Denies MA,CVA,Lung disease,renal disease BPH Colonoscopy in 04/2013 with [...]
[2024-11-21 12:25] VITALS: BP 130/80; PULSE 64; TEMP 36.5; O2SAT 98; BMI 33.6
--- NOTE | 2024-11-21 12:25 | A.OFFPC_ITS ---
Vital Signs 11/21/24 12:25 Height 5 ft 10 in Weight 234 lb BMI 33.6 BP 130/80 Blood Pressure Location Rt brachial Position Sitting Pulse 64 Pulse Source Pulse Oximeter Temp 97.7 F Temp Source Oral Pulse Oximetry (%) 98 Oxygen Delivery Method Room Air Intake Visit Reasons: 3 months f/up Intake Note: Pt is here today for his 3mo. f/u Allergies cephalexin [Keflex] Allergy (Intermediate, Verified 12/01/24 17:24) hives levofloxacin Allergy (Intermediate, Verified 12/01/24 17:24) Hives cetirizine [From Zyrtec] Adverse Reaction (Intermediate, Verified 12/01/24 17:24) Fatigue Medication List - Last Reconciled 12/01/24 by Latoya Lopez MD apixaban (Eliquis) 5 mg PO BID blood sugar diagnostic (AzimuthTouch Verio test strips) use 1 strip once a day to test blood sugar blood-glucose meter (RedDrummeruch Verio Flex Meter) As directed furosemide 40 mg PO DAILY glipizide ER 2.5 mg PO QAM lancets (Accu-Chek Softclix Lancets) use 1 lancet daily to test blood sugar lisinopril 20 mg PO DAILY metformin 1,000 mg PO BID metoprolol tartrate 50 mg PO BID Ozempic (semaglutide) 0.25 mg (0.368 mL) subcut QWEEK NS sildenafil (Viagra) 100 mg PO .prn 90 days simvastatin 20 mg PO BEDTIME tamsulosin 0.4 mg PO DAILY 90 days Tobacco use date assessed: 11/21/24 Fall risk assessment: No Falls in past year Last assessed Fall Risk: 11/21/24 Dental Screening Dental Screen Date: 11/21/24 Did you have a dental visit in the last 12 months?: Yes Did you have a dental problem in the last 6 months where you did not have access to dental care?: Yes Was dental information given to patient?: Patient has dentist HPI 3 months f/up HPI Details 79 -year-old male with hypertension diab etes mellitus and dyslipidemia, here today for follow-up. 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 Social History Household Members: None Housing: House Are you a primary care process manager to a significant other at home: No Do you presently have visiting nurse or other home services: No Patient Tobacco Use Status: Never used Tobacco e-Cigarette/Vaping Use: Never Used Second Hand Smoke Exposure: Yes service: No Current occupational status: retired Cognitive needs: No Hearing needs: No Vision needs: Yes Questionnaire PHQ-9 Over the last 2 weeks, how often have you been bothered by any of the following problems? Depression Screening Interpretation: Negative Depression Screening Done: Yes Source: Developed by Drs. Isma Davidson, Radha Sumner, Bobby Reyes and colleagues, with an educational gina from [employer]. Thrive Questionnaire Date Thrive assessed: 08/22/24 I am a: Patient What is your living situation today?: I have a steady place to live Within the past 12 months, did the food you bought not last and you didn't have the money to get more?: Never true Within the past 12 months, did you worry whether your food would run out before you got money to buy more?: Never true Do you have trouble paying for medicines?: No Do you have trouble getting transportation to medical appointments?: No Do you have trouble paying your heating and electricity bill?: No Do you have trouble taking care of your child, family member or friend?: No Do you have trouble with day-to-day activities such as bathing, preparing meals, shopping, managing finances, etc.?: No Are you currently unemployed and looking for a job?: No Are you interested in more education?: No Please select the resources that you would like help with: None Currently or been in a relationship where the following occur: No concerns reported THRIVE Score: 0 MARY-7 AMB Questionnaire MARY-7 Date MARY - 7 assessed: 08/22/24 Source: Developed by Drs. Isma Davidson, Radha Sumner, Bobby Reyes and colleagues, with an educational gina from [employer]. Review of Systems Const Denies weakness Eyes Details: Goes to [facility] for his diabetes retinopathy screening and eye exam ENT Reports Normal hearing present Card Denies chest pain, Denies chest pain with activity, Denies syncope, Denies rapid heart rate, Denies pedal edema, Denies edema, Denies leg edema, Denies lightheadedness, Denies palpitations, Denies dyspnea, Denies dyspnea on exertion and Denies orthopnea Resp Denies cough, Denies dyspnea and Denies dyspnea on exertion GI Details: Has follow-up appointment with Dr. Yepez scheduled later this year. Denies hematochezia and Denies change in stool character Reports no additional complaints Musc Denies abnormal gait, Denies muscle cramps, Denies muscle weakness, Denies numbness, Denies radiating pain into limb and Denies tingling Skin/Breast Details: Currently being seen by [facility], recently underwent shaved biopsy of a lesion on right cheek Neuro Reports Normal hearing present, Denies abnormal gait, Denies syncope, Denies num bness, Denies Sensory deficit (Neuro), Denies tingling and Denies weakness Psych Reports no additional complaints Endo Denies palpitations Ulysses/Lymph Reports no additional complaints Physical exam (Primary Care) Vital Signs: Last Vital Signs Temp 97.7 F 11/21/24 12:25 Pulse 64 11/21/24 12:25 BP 130/80 11/21/24 12:25 Pulse Ox 98 11/21/24 12:25 Oxygen Delivery Method Room Air 11/21/24 12:25 BMI result Body Mass Index 33.6 Tobacco/Smoking Status: Tobacco use Status Tobacco use date assessed 11/21/24 11/21/24 12:33 Patient Tobacco Use Status Never used Tobacco 11/21/24 12:26 e-Cigarette/Vaping Use Never Used 11/21/24 12:26 Depression Screening Interpretation: Negative Thrive Assessment: Date of Thrive Assessment Date Thrive assessed 08/22/24 11/21/24 12:26 Currently or been in a relationship where the following occur: No concerns reported Const General: comfortable and no acute distress Orientation/consciousness: patient oriented x3 HENMT Ears: hearing grossly normal bilaterally and external ears normal General nose exam: Normal external nose present Mouth: oropharynx normal and moist mucous membranes Eyes Conjunctivae: conjunctivae normal Pupils: Equal, round and reactive pupils present EOM: EOMs intact bilaterally Neck Neck: Yes full ROM, Yes no lymphadenopathy and Yes supple Resp Effort & Inspection: normal respiratory effort and able to speak in complete sentences Auscultation: clear to auscultation bilaterally Cardio Rate: regular rate Rhythm: regular rhythm Heart sounds: S1 normal heart sound present and S2 normal heart sound present GI Inspection: Yes normal to inspection Palpation (GI): Soft to palpation, nontender and no masses Auscultation: normal bowel sounds General: Yes no CVA tenderness Back/Spine/Pelvis Back: no CVA tenderness and No back tenderness Skin Other: Sterile bandage covering biopsy site on right cheek General skin exam: dry skin Neuro General: patient oriented x3, gait normal, tone normal, moves all extremities, Normal light touch and pain sensation and no focal motor deficits Cranial nerves: Yes Equal, round and reactive pupils present and Yes Normal hearing present Cognition (Neuro): normal cognition Gait exam (Neuro): Normal gait present Motor exam (neuro): 5/5 motor strength present throughout Sensory Exam: No Sensory deficit (Neuro) Extrem General: Yes full ROM, Yes no joint enlargement, Yes no clubbing, cyanosis or ed germain, Yes no calf tenderness and Yes normal gait Psych Appearance: grossly normal and well kempt Mental Status: mental status grossly normal Speech and movement: Normal speech and movement present Affect: normal affect Attitude: cooperative Results Reviewed Results Reviewed: Name: Alireza Gabriel Age/Sex: 79/M : 1945 Unit#: [id number] Attend Dr: Latoya Lopez MD Re11/16/24 Status: DEP REF Location: [facility] Disch: SPEC : [id number] CHRISTIAN: 11/16/24 STATUS: COMP REQ : [id number] RECD: 11/16/24-[address]: Latoya Lopez MD COMP: 11/16/24 ENTERED: 11/16/[address] [facility] [address]: ORDERED: CBC Auto Diff Test Result Flag Reference WBC 5.5 4.8-10.8 X10*3/uL RBC 4.03 L 4.60-5.80 X1 0*6/uL HGB 11.2 L 14.0-18.0 g/dl HCT 34.7 L 42.0-52.0 % MCV 86.1 80.0-98.0 fL MCH 27.8 27.0-33.0 pg MCHC 32.3 31.0-36.0 g/dl RDW 23.0 H 11.0-16.0 % PLT 158 L 160-400 X10*3/uL Neut Pct Auto 70.2 45-73 % ImGran Pct Auto 0.7 H 0.0-0.4 % Lymp Pct Auto 19.7 L 20-40 % Vinton Pct Auto 7.4 2-11 % Eos Pct Auto 1.6 0-4 % Baso Pct Auto 0.4 0-2 % NRBC Pct Auto 0.0 0.0-0.2 /100WBC ANC Neut Abs # 3.9 2.0-8.3 x10*3/uL ImGran Abs Auto 0.04 H 0.00-0.03 X10*3/uL Lymph Abs Auto 1.1 L 1.2-4.9 X10*3/uL Vinton Abs Auto 0.4 0.1-1.2 X10*3/uL Eos Abs Auto 0.1 0.0-0.4 X10*3/uL Baso Abs Auto 0.0 0.0-0.2 X10*3/uL NRBC Abs Auto 0.000 0.0-0.012 X10*3/uL Name: Alireza Gabriel Age/Sex: 79/M : 1945 Unit#: [id number] Attend Dr: Latoya Lopez MD Re11/16/24 Status: DEP REF Location: [facility] Disch: SPEC : [id number] CHRISTIAN: 11/16/24-899 STATUS: COMP REQ : [id number] RECD: 11/16/24-[address]: Latoya Lopez MD COMP: 11/16/24-1159 ENTERED: 11/16/24-[address]: ORDERED: IRON PROF, AST, ALT, Lipid Panel, Vitamin D 25-OH Test Result Flag Reference Iron 101 45-160 mcg/dL TIBC 208 L 228-428 mcg/dL Saturation 49 15-50 % UIBC 107 ug/dL AST (GOT) 13 5-37 U/L ALT (GPT) 7 0-40 U/L Triglyceride 49 <150 mg/dL Desirable Triglyceride: less than 150 mg/dL Borderline High Triglyceride 150-199 mg/dL High Triglyceride: 200-499 mg/dL Very High Triglyceride: greater than or equal to 5OO mg/dL Cholesterol 102 <200 mg/dL Desirable Cholesterol: less than 200 mg/dL Borderline High Cholesterol: 200-239 mg/dL High Cholesterol: greater than 239 mg/dL LDL Calculated 58 <100 mg/dL Desirable LDL: less than 100 mg/dL Near Optimal/Above Optimal LDL: 110-129 mg/dL Borderline High LDL: 130-159 mg/dL High LDL: 160-189 mg/dL Very High LDL: greater than or equal to 190 mg/dL HDL 35 L >40 mg/dL Desirable HDL: greater than 40 mg/dL Note: This HDL assay may give artificially low results in patients with liver disease. Vitamin D 25-OH 30.2 >30 ng/mL Health Based Reference Values* < 20 ng/mL Deficient 20-30 ng/mL Insufficient > 30 ng/mL Sufficient Laboratory Tests 08/15/24 11/16/24 08:40 09:00 Estimat Average Glucose 126 Hemoglobin A1c % 6.0 Urine Creatinine 41.14 Urine Microalbumin < 5.0 Microalb/Creat Ratio TNP Coding Level of Care Code Est Pt Level 4 (04420) Complex EM visit Add On G2211 Diagnoses Type 2 diabetes mellitus without complication, with no history of insulin use E11.9 Essential hypertension I10 Dyslipidemia E78.5 Iron (Fe) deficiency anemia D50.9 Assessment & Plan Assessment & Plan (1) Type 2 diabetes mellitus without complication, with no history of insulin use: Code(s): E11.9 - Type 2 diabetes mellitus without complications Category: Medical Plan: Diabetes mellitus not well controlled on medication however by the your not covered anymore was switched to Ozempic 0.25 mg injected once a week, and continued on metformin a 1000 mg 1 tablet twice a day get a with glipizide ER 0.5 mg in the morning. Continue checking blood sugar before meals to check for any hypoglycemic events. Will see him back for follow-up in 3 months fasting labs today (2) Essential hypertension: Code(s): I10 - Essential (primary) hypertension Category: Medical Plan: Blood pressure at goal of less than 130/80. Continue with current medication. Reinforced importance of following a low sodium diet, getting regular exercise, and lowering stress levels. (3) Dyslipidemia: Code(s): E78.5 - Hyperlipidemia, unspecified Category: Medical Plan: Reviewed recent fasting lipid profile with patient with levels within normal limits . Continue simvastatin 20 mg at bedtime , in addition to adherence to low-cholesterol diet and regular exercise, at least 30 minutes 3 to 4 times a week. Advised patient to make healthy food choices, eat more fruits, vegetables, whole grains, wild caught fish and low-fat dairy. Limit amount of meat and fried or fatty food products, as well as processed foods and fast foods. Follow-up scheduled with repeat fasting lipid panel in months. (4) Iron (Fe) deficiency anemia: Code(s): D50.9 - Iron deficiency anemia, unspecified Category: Medical Plan: Patient has an appointment to see Dr. Yepez for possible colonoscopy Orders: Orders Lipid Panel 03/08/25 I48.19 - Other persistent atrial fibrillation, E11.9 - Type 2 diabetes mellitus without complications, D50.9 - Iron deficiency anemia, unspecified, E78.5 - Hyperlipidemia, unspecified, I10 - Essential (primary) hypertension Basic Metabolic Panel Fasting 03/08/25 I48.19 - Other persistent atrial fibrillation, E11.9 - Type 2 diabetes mellitus without complications, D50.9 - Iron deficiency anemia, unspecified, E78.5 - Hyperlipidemia, unspecified, I10 - Essential (primary) hypertension Aspartate Amino Transferase 03/08/25 I48.19 - Other persistent atrial fibrillation, E11.9 - Type 2 diabetes mellitus without complications, D50.9 - Iron deficiency anemia, unspecified, E78.5 - Hyperlipidemia, unspecified, I10 - Essential (primary) hypertension Alanine Aminotransferase 03/08/25 I48.19 - Other persistent atrial fibrilla tion, E11.9 - Type 2 diabetes mellitus without complications, D50.9 - Iron deficiency anemia, unspecified, E78.5 - Hyperlipidemia, unspecified, I10 - Essential (primary) hypertension Hemoglobin A1c 03/08/25 I48.19 - Other persistent atrial fibrillation, E11.9 - Type 2 diabetes mellitus without complications, D50.9 - Iron deficiency anemia, unspecified, E78.5 - Hyperlipidemia, unspecified, I10 - Essential (primary) hypertension Vitamin D 25-OH Total 03/08/25 I48.19 - Other persistent atrial fibrillation, E11.9 - Type 2 diabetes mellitus without complications, D50.9 - Iron deficiency anemia, unspecified, E78.5 - Hyperlipidemia, unspecified, I10 - Essential (primary) hypertension Medications: Refilled Ozempic (semaglutide) for 4 weeks 0.25 mg (0.368 mL) subcut QWEEK 3 mL 6RF NS E11.9 - Type 2 diabetes mellitus without complications, I42.9 - Cardiomyopathy, unspecified
== END 2024-11-21 13:07 | disposition home or self-care (01) ==
LOC: HO.HMCC 11:27
PROVIDERS: PCP Internal Medicine; Visit Provider Internal Medicine
DX: E11.9 Type 2 diabetes mellitus without complications (principal); I10 Essential (primary) hypertension; E78.5 Hyperlipidemia, unspecified; D50.9 Iron deficiency anemia, unspecified

== ENCOUNTER → 2024-11-21 11:26 | Outpatient (BNVA) | payer MEDICARE, SELFPAY | PROVIDERS: PCP Internal Medicine; Visit Provider Internal Medicine | DX: E11.9 Type 2 diabetes mellitus without complications (principal); I10 Essential (primary) hypertension; E78.5 Hyperlipidemia, unspecified; D50.9 Iron deficiency anemia, unspecified | CPT/HCPCS: 99212 ==

== ENCOUNTER 2024-12-31 14:15 | Outpatient (AMB) | payer MEDICARE, SELFPAY ==
--- NOTE | 2024-12-31 14:25 | MHC.OFFVIS ---
Intake Visit Reasons: Reestablish/2019/ Bilateral foot swelling Intake Note: Patient presents for bilateral foot swelling. Patient states it has been about 4-5 weeks. Painful, and tingly at times. Accompanied by: Self / Same As Patient Allergies cephalexin (Keflex) Allergy (Intermediate, Verified 12/31/24 14:27) hives levofloxacin Allergy (Intermediate, Verified 12/31/24 14:27) Hives cetirizine (From Zyrtec) Adverse Reaction (Intermediate, Verified 12/31/24 14:27) Fatigue HPI HPI Reestablish/2019/ Bilateral foot swelling: Details: Very pleasant 79-year-old gentleman has seen us in the past for venous disease nearly 5 years ago. He had undergone right great saphenous vein ablation back in July of 2019. He had subsequently seen us for some lower extremity cellulitis which appeared to resolve. He had been doing well since that time and more recently has been commuting back and forth between [place] to visit his son. He has developed significant swelling of the lower extremities. Notes it right more so than left. He actually has evidence of some ulcerations as well. He has become quite concerned about his lower extremities now presents for re-evaluation. Patient has had right great saphenous vein ablation in July of 2019 Patient denies any history of DVT/ PE. Patient denies any history of phlebitis. Trial of compression includes - [id number]-whsjnmo They now present for vascular evaluation regarding their varicose veins. 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 Social History Household Members: None Housing: House Are you a primary team primary care physician to a significant other at home: No Do you presently have visiting nurse or other home services: No Patient Tobacco Use Status: Never used Tobacco e-Cigarette/Vaping Use: Never Used Second Hand Smoke Exposure: Yes service: No Current occupational status: retired Cognitive needs: No Hearing needs: No Vision needs: Yes Review of Systems Const Reports as per HPI ENT Reports no additional complaints Card Denies chest pain, Denies chest pain at rest and Denies chest pain with activity Resp Denies chest congestion and Denies cough GI Reports no additional complaints Musc Details: pain over varicosities, aching of lower extremities, swelling, cramping, heaviness and tiredness, itching Denies abnormal gait Skin/Breast Reports pruritus and Denies wounds Neuro Reports no additional complaints and Denies abnormal gait Psych Denies no additional complaints Physical Exam Const General: cooperative, healthy appearing and comfortable Orientation/consciousness: oriented to person, oriented to place and oriented to time Neck Carotids: no bruits Chest Chest palpation & inspection: normal inspection of the chest and normal palpation of entire chest wall Resp Effort & Inspection: normal respiratory effort and able to speak in complete sentences Cardio Rate: regular rate Heart sounds: S1 normal heart sound present and S2 normal heart sound present Peripheral pulses: Peripheral pulses 2+ throughout GI Inspection: Yes normal to inspection Skin Other: +2 edema, large rope-like varicosities greater than 4 mm right greater than left CEAP Classification C6 - open ulcer Ep - Etiology Primary As - superficial veins P - reflux General skin exam: dry skin Neuro General: oriented to person, oriented to place and oriented to time Extrem Right lower extremity: full ROM, normal capillary refill and edema Left lower extremity: full ROM, normal capillary refill and edema Psych Mental Status: mental status grossly normal Assessment & Plan Assessment & Plan (1) Varicose veins of right lower extremity with inflammation: Comment: July 2019 - right great saphenous vein Cyanoacralate ablation Code(s): I83.11 - Varicose veins of right lower extremity with inflammation Category: Medical Plan: In short patient has recurrent venous disease. I have taken the liberty of ordering venous insufficiency testing to re-evaluate his venous status. We did discuss routine conservative measures including compression elevation and exercise. The patient will follow up with us after venous insufficiency testing. (2) Lymphedema: Code(s): I89.0 - Lymphedema, not elsewhere classified Category: Medical Plan: Patient may have an element of lymphedema. We may consider compression pumps after we workup his venous disease. Thank you for allowing us to assist in his care. Orders: Orders US venous duplex LE BI 1 Week I83.11 - Varicose veins of right lower extremity with inflammation Coding Level of Care Code Est Pt Level 4 (28660) Complex EM visit Add On G2211 Diagnoses Varicose veins of right lower extremity with inflammation I83.11 Lymphedema I89.0
--- OUTSIDE RECORDS SUMMARY | 2024-12-31 15:27 | XMS_ITS | Patient Health Record ---
Author Organization [facility] Address [address] [place] [address] Care Team Providers Care Operation Agent Name Role Phone John PENNY, Latoya Primary Care Provider Isma Vu [phone] Allergies Allergen (clinical drug ingredient) Drug/Non Drug [...] Problem Status W/U Status Risk Notes Problem 871736945 Encounter for screening for malignant neoplasm of colon (Z12.11) Active confirmed Problem 084479169 History of adenomatous polyp of colon (Z86.010) Active confirmed Problem Iron deficiency anemia (58164325) Iron deficiency anemia (D50.9) Active confirmed Problem 452111606 Preprocedural examination (Z01.818) Active confirmed Problem History of polyp of colon (896615254) History of colon polyps (Z86.010) Active confirmed Problem 566506277 Long-term use of aspirin therapy (Z79.82) Active confirmed Problem 25556992 Constipation, unspecified constipation type (K59.00) Active confirmed Problem 02341013 Other iron deficiency anemia (D50.8) Active confirmed Problem 556953467 Anticoagulant long-term use (Z79.01) Active confirmed Problem 64997361 Iron deficiency anemia, unspecified iron deficiency anemia type (D50.9) Active confirmed Problem 88230167 Mucosal abnormality of duodenum (K31.9) Active confirmed Problem Diverticulosis of colon (484760820) Diverticulosis of colon (K57.30) Active confirmed Vital Signs Blood pressure diastolic 00 mm Hg 04/09/2024 Height 70 in 04/09/2024 Blood pressure systolic 00 mm Hg 04/09/2024 Weight 244 lbs 04/09/2024 BMI 35.01 kg/m2 04/09/2024 Encounters Encounter Location Date Provider Diagnosis [facility] [address] [place] [address] 04/09/2024 Isma Yepez Iron deficiency anemia D50.9 [...] IBC (FE) 10/04/2021 VITAMIN B12 AND FOLATE 10/04/2021 VITAMIN B12 AND FOLATE 08/08/2023 CBC w DIFF 08/08/2023 CBC w DIFF 10/04/2021 CBC w DIFF 04/12/2022 CELIAC PANEL #10 08/08/2023 CELIAC PANEL #10 09/17/2021 Ferritin 10/04/2021 Future Test Test Name Order Date COLONOSCOPY 08/27/2013 COLONOSCOPY 03/21/2017 COLONOSCOPY 04/07/2020 UPPER GI ENDOSCOPY 08/06/2021 COLONOSCOPY 08/06/2021 Next Appt Details Provider Name:Isma Yepez , 04/08/2025 09:30:00 AM, [address] [place] [address], [address], [place], [address], Insurance Providers Payer Name Payer Address Payer Phone Subscriber Number Group Number Insured Name Patient Relationship to Insured Coverage Start Date Coverage End Date [facility] [address] [address] [place] [address] [id number] ALIX ROWAN Self - patient is the insured Medical (General) History Medical History History ICD Code Colonoscopy 07-20-2007 and 2003--tubular adenomas removed Hyperlipidemia NIDDM Hypertension Denies NH,CVA,Lung disease,renal disease BPH Colonoscopy in 04/2013 with [...]
--- OUTSIDE RECORDS SUMMARY | 2024-12-31 15:27 | XMS_ITS | Patient Health Record ---
Author Organization [facility] Address [address] [place] [address] Care Team Providers Care Major Gifts Officer Name Role Phone John PENNY, Latoya Negrete Primary Care Provider Un available Black, Francine Unavailable [phone] Allergies Allergen (clinical drug ingredient) Drug/Non Drug Allergy documented on EMR Reaction Allergy Type Onset Date Status Ceftin rash Drug Allergy Active Keflex Unknown Drug Allergy Active cefaclor Cefaclor rash Drug Allergy Active Results Component Value Reference Range Notes HEMOGLOBIN A1C (GLYCOHEMOGLO BIN) Reviewed date:06/03/2024 02:53:10 PM Interpretation: Performing Lab: Notes/Report: TOTAL HEMOGLOBIN (HGBA1C) 5.8 HEMOGLOBIN A1C (GLYCOHEMOGLO BIN) Reviewed date:09/09/2024 09:14:45 AM Interpretation: Performing Lab: Notes/Report: HEMOGLOBIN A1C % (HH) 5.6 Reason For Referral No Information Medications Medication SIG (Take, Route, Frequency, Duration) Notes Start Date End Date Status glyBURIDE Active Cipro 500 MG 1 tablet Orally ever y 12 hrs; Duration: 10 day(s) Not-Chucho ing Enablex Active Flomax Active Metoprolol Tartrate 25 MG Orally Active Doxycycline Hyclate 100 MG 1 tablet Orally Once a day; Duration: 10 day(s) 03/26/2020 Not-Chucho ing Lisinopril Active Bactrim DS 800-160 MG 1 tablet Orally Tw ice a day; Duration: 10 day(s) 01/30/2020 Not-Chucho ing Actos Not-Taking Compression Stockings 20-30mm Hg 1 pair wear daily; Duration: 30 days Active Simvastatin 5 MG 1 tablet every eveni ng Orally Once a day; Duration: 30 day(s) Active Eliquis 5 MG as directed Orally Active Ammonium Lactate 12 % 1 application Exte rnally Twice a day; Duration: 30 days Active Compression Stockings 20-30mm Hg 1 pair wear daily; Duration: 30 days Active Loprox Not-Taking Immunizations Vaccine Route Administration Date Status Comme nts COVID-19 Moderna Vaccine Unknown 06/02/2021 Administered 1st 2nd dose: 08/03/20 Influenza Unknown 03/18/2015 Administered Influenza Unknown 04/04/2016 Administered Influenza Unknown 03/03/2017 Administered Influenza Unknown 05/29/2018 Administered Influenza Unknown 04/02/2019 Administered Influenza Unknown 05/07/2020 Administered Influenza Unknown 06/17/2021 Administered Influenza Unknown 03/06/2023 Administered Influenza Unknown 04/02/2024 Administered Social History Tobacco Use: Social History [...] Problem Status W/U Status Risk Notes Problem Polyneuropathy due to type 2 diabetes mellitus (437469396) Type 2 diabetes mellitus with diabetic polyneuropathy (E11.42) Active confirmed Vital Signs Blood pressure diastolic 70 mm Hg 12/16/2024 Height 5 ft 10 in in 12/16/2024 Blood pressure systolic 120 mm Hg 12/16/2024 Weight 242 lbs 12/16/2024 BMI 34.72 kg/m2 12/16/2024 Procedures Procedure Date Ordered Date Performed Result Body Sit e 48413-KJMWEQV NAIL, 6 OR MORE 02/26/2024 N/A 48116-Cuxrumto Plate 02/26/2024 N/A 50599-LYYY SKIN LESIONS, OVER 4 02/26/2024 N/A 23691-WYWZHTH NAIL, 6 OR MORE 06/03/2024 N/A 87194-KLQV SKIN LESIONS, OVER 4 06/03/2024 N/A 57158-OOYVCTX NAIL, 6 OR MORE 09/09/2024 N/A 25212-Ssvdasnq Plate 09/09/2024 N/A 87849-QQLK SKIN LESIONS, OVER 4 09/09/2024 N/A 40615-Gksyzijl Plate 10/09/2024 N/A 63685-HKHSTPH NAIL, 6 OR MORE 12/16/2024 N/A 33456-Qjjhmfkp Plate 12/16/2024 N/A 98733-GNFT SKIN LESIONS, OVER 4 12/16/2024 N/A Encounters Encounter Location Date Provider Diagnosis [address] [address] 02/26/2024 Francine Black Type 2 diabetes mellitus with diabetic polyneuropathy E11.42 ; Tinea unguium B35.1 and Ingrown nail L60.[address] [address] 06/03/2024 Francine Black Type 2 diabetes mellitus with diabetic polyneuropathy E11.42 ; Tinea unguium B35.1 ; Ingrown nail L60.0 and Edema, lower extremity R60.[address] [address] 09/09/2024 Francine Black Type 2 diabetes mellitus with diabetic polyneuropathy E11.42 ; Other hammer toe(s) (acquired), right foot M20.41 ; Tinea unguium B35.1 ; Ingrown nail L60.0 ; Edema, lower extremity R60.0 and Other hammer toe(s) (acquired), left foot M20.[address] [address] 10/09/2024 Francine Black Ingrown nail L60.0 a nd Type 2 diabetes mellitus with diabetic polyneuropathy E11.[address] [address] 12/16/2024 Francine Black Type 2 diabetes mellitus with diabetic polyneuropathy E11.42 ; Edema, lower extremity R60.0 ; Ingrown nail L60.0 and Tinea unguium B35.1 [facility] [address] [address] 10/08/2024 Francine Ibrahim Assessments Encounter Date Diagnosis [...] E11.42) 10/09/2024 Ingrown nail (ICD-10 - L60.0) 12/16/2024 Type 2 diabetes mellitus with diabetic polyneuropathy (ICD-10 - E11.42) 12/16/2024 Edema, lower extremity (ICD-10 - R60.0) 06/03/2024 Tinea unguium (ICD-10 - B35.1) 12/16/2024 Ingrown nail (ICD-10 - L60.0) 09/09/2024 Tinea unguium (ICD-10 - B35.1) 02/26/2024 Tinea unguium (ICD-10 - B35.1) 02/26/2024 Ingrown nail (ICD-10 - L60.0) 06/03/2024 Ingrown nail (ICD-10 - L60.0) 12/16/2024 Tinea unguium (ICD-10 - B35.1) 09/09/2024 Ingrown nail (ICD-10 - L60.0) 09/09/2024 Edema, lower extremity (ICD-10 - R60.0) 06/03/2024 Edema, lower extremity (ICD-10 - R60.0) 09/09/2024 Other hammer toe(s) (acquired), left foot (ICD-10 - M20.42) Plan Of Treatment Pending Test Test Name Order Date Microalbumin, 24 hr Urine 06/23/2015 28516-GLEVCYS NAIL, 6 OR MORE 12/16/2024 79249-AWFYZPW NAIL, 6 OR MORE 02/02/2023 13674-ZUDOXHD NAIL, 6 OR MORE 05/11/2023 43668-ZEVFVMR NAIL, 6 OR MORE 08/10/2023 73340-YLQKEZG NAIL, 6 OR MORE 11/13/2023 98213-VYCKGHS NAIL, 6 OR MORE 02/26/2024 79353-NGIUQLU NAIL, 6 OR MORE 06/03/2024 04523-MUKRIMD NAIL, 6 OR MORE 09/09/2024 08117-JHLSDKP NAIL, 6 OR MORE 05/05/2011 15469-AMOHTRJ NAIL, 6 OR MORE 09/19/2011 86897-UIVEWIW NAIL, 6 OR MORE 11/03/2011 01178-HUUHYQN NAIL, 6 OR MORE 12/05/2011 82794-FCFGOXW NAIL, 6 OR MORE 11/27/2012 14889-IPHZCHU NAIL, 6 OR MORE 07/29/2013 17175-ZZDHZKR NAIL, 6 OR MORE 01/27/2014 67965-VJXUHTP NAIL, 6 OR MORE 09/04/2015 67982-CFTKFXT NAIL, 6 OR MORE 12/02/2015 85778-ROPRJKS NAIL, 6 OR MORE 02/08/2016 09802-MFUVVGI NAIL, 6 OR MORE 04/25/2016 28627-NZYBFXR NAIL, 6 OR MORE 07/11/2016 24977-HWBCRQC NAIL, 6 OR MORE 09/08/2016 28996-FNZCVTI NAIL, 6 OR MORE 11/17/2016 94540-SGJEOPX NAIL, 6 OR MORE 02/02/2017 02087-MNRKFQL NAIL, 6 OR MORE 04/11/2017 12008-WTHZNWD NAIL, 6 OR MORE 07/05/2017 11864-GNMMWCP NAIL, 6 OR MORE 09/14/2017 22913-AMHRXKP NAIL, 6 OR MORE 11/20/2017 73562-UMLSNOY NAIL, 6 OR MORE 01/29/2018 30538-HVZPUZF NAIL, 6 OR MORE 06/12/2018 34461-XTRFSJG NAIL, 6 OR MORE 08/27/2018 02287-SPSAMUY NAIL, 6 OR MORE 11/05/2018 13550-AFIDGRU NAIL, 6 OR MORE 03/05/2019 13274-HMGCYUB NAIL, 6 OR MORE 05/13/2019 90489-MGTITDN NAIL, 6 OR MORE 08/05/2019 30993-AMIKQSY NAIL, 6 OR MORE 10/28/2019 73014-ICJMTFQ NAIL, 6 OR MORE 03/26/2020 57389-NDLPIOG NAIL, 6 OR MORE 12/23/2019 34121-GCZPTRP NAIL, 6 OR MORE 06/11/2020 89375-UJORBSI NAIL, 6 OR MORE 08/20/2020 86811-ZPZNUYQ NAIL, 6 OR MORE 10/22/2020 02396-LGORPQU NAIL, 6 OR MORE 12/31/2020 51253-HSHGMKI NAIL, 6 OR MORE 04/19/2021 38667-XQYLZZH NAIL, 6 OR MORE 07/15/2021 14264-NLIAKPG NAIL, 6 OR MORE 10/04/2021 22186-IUBXMHO NAIL, 6 OR MORE 02/08/2022 24922-ZFUXCBG NAIL, 6 OR MORE 04/25/2022 14387-NPZCFGS NAIL, 6 OR MORE 08/01/2022 82874-HJMPACM NAIL, 6 OR MORE 11/03/2022 12917-NGFBWBW NAIL, 1-5 04/03/2015 70504-WWPZHFW NAIL, 1-5 06/16/2015 70512-RKRGMHI NAIL, 1-5 07/28/2014 12570-NNZSKUT NAIL, 1-5 04/30/2012 15392-QEABOGC NAIL, 1-5 11/27/2014 87712-CPUTGPQ NAIL, 1-5 01/26/2015 00790-Gola Destruction, 1-14 04/25/2022 03794-Xtci Destruction, 1-14 08/01/2022 00717-Pzrd Destruction, 1-14 11/03/2022 29979-Tghpkbzz Plate 09/09/2024 41773-Rdrwqcer Plate 10/09/2024 47870-Drtiodup Plate 02/26/2024 38484-Ymvrabup Plate 11/13/2023 49839-Liljnzpe Plate 12/16/2024 50015-Ltjovbcw Plate 11/03/2022 56227-Iqewshce Plate 02/02/2023 54752-Mshrmvtk Plate 02/08/2022 13332-Tdtrmlfe Plate 10/04/2021 13698-Jjvhcbzp Plate 10/28/2019 07364-Sxplzhti Plate 04/19/2021 35057-Asreyees Plate 12/31/2020 81603-Lopfpjby Plate 01/16/2020 93476-Zuhvljyp Plate 01/23/2020 35820-Nfcdwdjh Plate 03/05/2019 34317-Lmazdwgx Plate 05/13/2019 15772-Ymsszoin Plate 08/27/2018 60522-Pgxtcinn Plate 01/29/2018 37915-Rapgbpup Plate 06/12/2018 28964-Rrvtsrim Plate 01/26/2015 98451-Xnvhnjze Plate 04/03/2015 49183-Tidpiihs Plate 01/27/2014 43105-Bkfxlheh Plate 03/13/2014 45135-Yfcetfur Plate 07/29/2013 60307-Kmyfbxbp Plate 11/27/2012 43211-Mngouuvp Plate 03/09/2012 55227-Wdkyvknz Plate 04/30/2012 66188-Zaepjwvk Plate 12/05/2011 46073-Hziiqjcf Plate 02/23/2012 32452-Bgezlmxf Plate 11/03/2011 30891-Bebmlgax Plate 09/19/2011 07847-Rewdkcoe Plate 05/05/2011 33455-Qbwenvfo Plate 06/06/2011 42395-Kijgtowv Plate 07/28/2014 39131-Urdetnqt Plate 11/27/2014 01917-Kbbgxrfk Plate 07/11/2016 08595-Khdujmgh Plate 04/25/2016 64332-Mzxrmkuq Plate 09/14/2017 46829-Oniczbdy Plate 04/11/2017 42095-Xjtccrub Plate 02/08/2016 64710-Bacezenp Plate 11/17/2016 74083-Gglohlvx Plate 09/08/2016 34207-Mvqfrueq Plate Each Additional 11814-Eyvfuqiq Plate Each Additional 09/2011 38109-Eujxmrvu Plate Each Additional 98507-Jllmiezu Plate Each Additional 01/2012 21864-Dzcymdyt Plate Each Additional 18956-Gjiwibiv Plate Each Additional 17730-Cvmdzodv Plate Each Additional 93341-Exigmfoy Plate Each Additional 07/2020 04393-Cbsrtzxe Plate Each Additional 03/2022 10545-FUI 01/11/2012 13551- Debride <25 sq cm 01/30/2012 59576- Debride <25 sq cm 02/23/2012 15094- Debride <25 sq cm 04/30/2012 37872- Debride <25 sq cm 04/24/2017 79148- Debride <25 sq cm 01/30/2020 03337- Debride <25 sq cm 02/13/2020 46613- Debride <25 sq cm 02/27/2020 71093- Debride <25 sq cm 01/23/2020 93965- Debride <25 sq cm 03/26/2020 37078- Debride <25 sq cm 04/06/2020 40854-ITWVATY SKIN/TISSUE 03/09/2012 01386 I&D ABSCESS- SIMPLE,SINGLE 014 91507 I&D ABSCESS- SIMPLE,SINGLE 022 26498-UQQU SKIN LESIONS, OVER 4 10/05/19 22 45456-GLIU SKIN LESIONS, OVER 4 08/01/19 23 97208-KDJQ SKIN LESIONS, OVER 4 04/25/20 22 22234-RELH SKIN LESIONS, OVER 4 02/03/20 23 19623-YMVI SKIN LESIONS, OVER 4 11/04/19 23 92941-EKBL SKIN LESIONS, OVER 4 12/23/19 20 91145-LHHK SKIN LESIONS, OVER 4 10/28/19 20 53543-GFJE SKIN LESIONS, OVER 4 08/27/19 19 53670-FQGZ SKIN LESIONS, OVER 4 06/12/20 18 44292-TPPY SKIN LESIONS, OVER 4 01/30/20 18 63355-HYFY SKIN LESIONS, OVER 4 11/06/19 19 09086-NAHM SKIN LESIONS, OVER 4 03/05/20 19 67896-UQCC SKIN LESIONS, OVER 4 05/13/20 19 93381-TZPY SKIN LESIONS, OVER 4 08/05/19 20 13296-UFFX SKIN LESIONS, OVER 4 04/03/20 15 85248-YJEV SKIN LESIONS, OVER 4 07/05/19 18 86192-GDOA SKIN LESIONS, OVER 4 04/11/20 17 48727-RQQN SKIN LESIONS, OVER 4 11/21/19 18 80342-VOOU SKIN LESIONS, OVER 4 09/15/19 18 91232-KAVI SKIN LESIONS, OVER 4 11/18/19 17 17562-HHBL SKIN LESIONS, OVER 4 09/09/19 17 05897-APGN SKIN LESIONS, OVER 4 02/03/20 17 62460-TYYW SKIN LESIONS, OVER 4 04/25/20 16 44822-VGHS SKIN LESIONS, OVER 4 07/11/19 17 00264-UAEM SKIN LESIONS, OVER 4 02/08/20 16 19912-SFPW SKIN LESIONS, OVER 4 12/02/19 16 53584-TJSX SKIN LESIONS, OVER 4 09/04/19 16 55573-FPHC SKIN LESIONS, OVER 4 06/16/20 15 30798-BQJT SKIN LESIONS, OVER 4 11/13/19 24 36784-HRWN SKIN LESIONS, OVER 4 02/26/20 24 20900-ONGU SKIN LESIONS, OVER 4 08/10/19 24 05808-VDWY SKIN LESIONS, OVER 4 05/11/20 23 28080-SLEE SKIN LESIONS, OVER 4 12/17/19 25 31253-WUJW SKIN LESIONS, OVER 4 09/10/19 25 14102-YIPC SKIN LESIONS, OVER 4 06/03/20 24 84907-BGMP SKIN LESIONS, 2 TO 4 03/26/20 20 05563-EXTQ SKIN LESIONS, 2 TO 4 06/11/20 20 87080-UXTE SKIN LESIONS, 2 TO 4 08/20/19 21 65004-QTLZ SKIN LESIONS, 2 TO 4 02/09/20 22 43980-HEVJ SKIN LESIONS, 2 TO 4 07/15/19 22 92917-TQDC SKIN LESIONS, 2 TO 4 04/19/20 21 59298-PSPA SKIN LESIONS, 2 TO 4 01/01/20 21 62735-KUWX SKIN LESIONS, 2 TO 4 10/23/19 21 M7780-VACKETMT DYSTROPHIC NAILS ANY # Next Appt Details Provider Name:Francine Ibrahim , 03/20/2025 02:45:00 PM, [address] [facility], [place], [address], Insurance Providers Payer Name Payer Address Payer Phone Subscriber Number Group Number Insured Name Patient Relationship to Insured Coverage Start Date Coverage End Date [employer] Medicare Adv-[id number] [address] [address] [place] [address] [id number] Alireza Gabriel Self - patient is the insured 6 Medical (General) History Medical History History ICD Code mumps back, hip, knee pain type II diabetes Hay fever Other hammer toe(s) (acquired), right fo ot M20.41 Other hammer toe(s) (acquired), left jasmin t M20.42 Surgical History Surgery Date(Month/Year) left knee arthroscopy 1995 left knee replacement 08/28/2012
== END 2024-12-31 14:42 | disposition home or self-care (01) ==
LOC: HO.HVS 14:16
PROVIDERS: PCP Internal Medicine; Visit Provider Surgery Vascular Surgery
DX: I83.11 Varicose veins of right lower extremity with inflammation (principal); I89.0 Lymphedema, not elsewhere classified
CPT/HCPCS: 99214; G2211

== ENCOUNTER → 2024-12-31 14:15 | Outpatient (BNVA) | payer MEDICARE, SELFPAY | PROVIDERS: PCP Internal Medicine; Visit Provider Surgery Vascular Surgery | DX: I83.813 Varicose veins of bilateral lower extremities with pain (principal); I83.11 Varicose veins of right lower extremity with inflammation; I83.12 Varicose veins of left lower extremity with inflammation; I89.0 Lymphedema, not elsewhere classified; M79.662 Pain in left lower leg; M79.661 Pain in right lower leg | CPT/HCPCS: 99212 ==

== ENCOUNTER 2025-03-13 08:58 | Outpatient (AMB) | payer MEDICARE, SELFPAY ==
[2025-03-13 08:59] VITALS: BP 98/62; PULSE 64; O2SAT 92; BMI 30.8
--- NOTE | 2025-03-13 08:59 | A.OFFPC_ITS ---
Vital Signs 03/13/25 08:59 Height 5 ft 10 in Weight 214 lb 6 oz BMI 30.8 BP 98/62 Blood Pressure Location Lt brachial Position Sitting Pulse 64 Pulse Source Pulse Oximeter Pulse Oximetry (%) 92 Intake Visit Reasons: HDF CHF Allergies cephalexin (Keflex) Allergy (Intermediate, Verified 03/13/25 08:59) hives levofloxacin Allergy (Intermediate, Verified 03/13/25 08:59) Hives cetirizine (From Zyrtec) Adverse Reaction (Intermediate, Verified 03/13/25 08:59) Fatigue Tobacco use date assessed: 11/21/24 Fall risk assessment: 2 + Falls in past year Last assessed Fall Risk: 03/13/25 Dental Screening Dental Screen Date: 11/21/24 HPI HPI Comments History of Present Illness Details Patient is an 79-year-old male with a past medical history of T2DM, AFib on Eliquis, HTN, iron-deficiency anemia, HLD, BPH who is here for a hospital discharge follow up. He was traveling to [place] when his family members noticed on 01/28 he had become confused for 4 hours, started slurring his speech and drooling he was also short of breath and coughing so they took him to the local hospital. In the emergency department at [facility], he was found to be hypertensive at 237/131, HR of 132, he was afebrile and 72% on RA and was stabilized on high-flow nasal cannula 60/60. He also had a mild VERENA, a bump in his white count to 13.3, hemoglobin was 13, electrolytes were normal in his glucose was 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 He was admitted for acute hypoxic respiratory failure, AFib with RVR, hypertensive urgency, CAP, acute encephalopathy and he had large bilateral pleural effusions. He had worsening respiratory failure and ended up being intubated for short time, twice. He was given antibiotics, Lasix transitioned to Bumex, he had an echo that showed he had have HF with an EF of 55% with an RVSP of 55. He underwent a left thoracentesis. He had a barium swallow which showed he had ayan ent aspiration of both thin and thick liquids. MRI of the brain showed a suspected focus of acute/subacute infarct in the right posterior frontal region. Clinical correlation is recommended and short-term follow-up if clinically indicated as well as presumed sequelae of supratentorial white matter chronic ischemic microvascular disease . He was started on aspirin, Bumex 1 mg twice daily, his statin was changed to atorvastatin 40 daily and he was discharged on March 04. He was not sent to a rehabilitation facility despite being hospitalized for 35 days and intubated twice. He was told to follow up with the siding installer upon returning home. He has seen Dr. Keller as recently as 1 year ago. He is here with the family members today, his 2 oqvngnrc-ta-abs's. They tell me he had 2 falls which he sustained since being discharged. He has been taking his blood thinner and he did hit his head, unclear if LOC. He did not seek medical attention after the most recent falls. They tell me he lives alone, he needs help getting dressed and using the bathroom and his shower is on the 2nd floor of his home and he can not walk up the stairs by himself. They said he is completely deconditioned from his long hospital stay. And they are concerned he is going to keep falling. He has left shoulder pain and has difficulty moving the arm. 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 Social History Household Members: None Housing: House Are you a primary veterinarian laboratory animal care to a significant other at home: No Do you presently have visiting nurse or other home services: No Patient Tobacco Use Status: Never used Tobacco e-Cigarette/Vaping Use: Never Used Second Hand Smoke Exposure: Yes service: No Current occupational status: retired Cognitive needs: No Hearing needs: No Vision needs: Yes Questionnaire PHQ-9 Over the last 2 weeks, how often have you been bothered by any of the following problems? 1. Little interest or pleasure in doing things: not at all 2. Feeling down, depressed, or hopeless: not at all 3. Trouble falling or staying asleep, or sleeping too much: not at all 4. Feeling tired or having little energy: not at all 5. Poor appetite or overeating: not at all 6. Feeling bad about yourself - or that you are a failure or have let yourself or your family down: not at all 7. Trouble concentrating on things, such as reading the newspaper or watching television: not at all 8. Moving or speaking so slowly that other people could have noticed. Or the opposite - being so fidgety or restless that you have been moving around a lot more than usual: not at all 9. Thoughts that you would be better off or of hurting yourself in some way: not at all Total score: 0 Depression Screening Interpretation: Negative Depression Screening Done: Yes Source: Developed by Drs. Isma Davidson, Radha Sumner, Bobby Reyes and colleagues, with an educational gina from [employer]. Thrive Questionnaire Date Thrive assessed: 08/22/24 I am a: Patient What is your living situation today?: I have a steady place to live Within the past 12 months, did the food you bought not last and you didn't have the money to get more?: Never true Within the past 12 months, did you worry whether your food would run out before you got money to buy more?: Never true Do you have trouble paying for medicines?: No Do you have trouble getting transportation to medical appointments?: No Do you have trouble paying your heating and electricity bill?: No Do you have trouble taking care of your child, family member or friend?: No Do you have trouble with day-to-day activities such as bathing, preparing meals, shopping, managing finances, etc.?: No Are you currently unemployed and looking for a job?: No Are you interested in more education?: No Please select the resources that you would like help with: None Currently or been in a relationship where the following occur: No concerns reported THRIVE Score: 0 AUDIT C Alcohol Use Questionnaire (AUDIT-C) 1. How often do you have a drink containing alcohol?: Never 3. How often do you have six or more drinks on one occasion?: Never Total Score: 0 MARY-7 AMB Questionnaire MARY-7 Date MARY - 7 assessed: 08/22/24 Feeling nervous, anxious, or on edge: 0 = Not at all Not being able to stop or control worryin = Not at all Worrying too much about different things: 0 = Not at all Trouble relaxin = Not at all Being so restless that it is hard to sit still: 0 = Not at all Becoming easily annoyed or irritable: 0 = Not at all Feeling afraid as if something awful might happen: 0 = Not at all Total MARY-7 score (0-4 normal; 5-9 mild; 10-14 moderate; 15-21 severe): 0 Source: Developed by Drs. Isma Davidson, Radha Sumner, Bobby Reyes and colleagues, with an educational gina from [employer]. Review of Systems Const All systems reviewed & are unremarkable except as noted in HPI and below Physical exam (Primary Care) Vital Signs: Last Vital Signs Pulse 64 03/13/25 08:59 BP 98/62 03/13/25 08:59 Pulse Ox 92 03/13/25 08:59 BMI result Body Mass Index 30.8 Tobacco/Smoking Status: Tobacco use Status Tobacco use date assessed 11/21/24 03/13/25 09:01 Patient Tobacco Use Status Never used Tobacco 03/13/25 09:01 e-Cigarette/Vaping Use Never Used 03/13/25 09:01 PHQ-9: PHQ-9 Score PHQ-9: Total score 0 03/13/25 09:38 Depression Screening Interpretation: Negative Thrive Assessment: Date of Thrive Assessment Date Thrive assessed 08/22/24 03/13/25 09:01 Currently or been in a relationship where the following occur: No concerns reported Const General: cooperative, healthy appearing, comfortable, no acute distress and well developed Orientation/consciousness: patient oriented x3 Limitations: ambulation with walker HENMT Head: Yes contusion (multiple contusions on forehead and nose) Ears: hearing grossly normal bilaterally Face and sinus: Yes normal facial exam and Yes ecchymosis (nose) Eyes General: appearance normal, both eyes and all related structures Neck Neck: Yes normal visual inspection and Yes full ROM Chest Other: bilateral clavicles and anterior shoulders no ttp and equal visually Chest palpation & inspection: normal inspection of the chest Resp Effort & Inspection: normal respiratory effort and able to speak in complete sentences Skin General skin exam: no rashes or lesions noted Neuro General: patient oriented x3 Extrem General: Yes normal to inspection Left upper extremity: shoulder/upper arm Details: inspection abnormal and abnormal ROM Details: held in an abnormal fashion Details: in ADduction Coding Level of Care Code Est Pt Level 5 (34721) Diagnoses 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 (2) Hospital discharge follow-up: Code(s): Z09 - Encounter for follow-up examination after completed treatment for conditions other than malignant neoplasm Category: Medical Plan: Patient clearly needs rehabilitation as he is clearly deconditioned, has sustained mulitple falls and needs help with more than 2 ADL's. Sent this patient to the emergency room for a thorough evaluation of his left shoulder, possible head CT with the 2 falls, labs and imaging to assess fluid status as it is questionable if he is fluid overloaded at this point, despite taking Bumex, and to have a PT OT evaluation to likely be sent to a rehabilitation facility. Called [facility] ED with expect, 10:00AM. (3) Multiple falls: Code(s): R29.6 - Repeated falls Category: Medical Plan: Sent to [facility] ED (4) Left shoulder pain: Code(s): M25.512 - Pain in left shoulder Category: Medical Qualifiers: Chronicity: acute Qualified Code(s): M25.512 - Pain in left shoulder Plan: Needs left shoulder evaluation, is going to the [facility] ED. (5) Silent aspiration: Code(s): T17.900A - Unspecified foreign body in respiratory tract, part unspecified causing asphyxiation, initial encounter Category: Medical Qualifiers: Encounter type: initial encounter Qualified Code(s): T17.900A - Unspecified foreign body in respiratory tract, part unspecified causing asphyxiation, initial encounter Plan: as per Barium swallow at [facility] in , see 03/06/25 notes under Activity. Orders: Referrals Vascular Surgery Referral I65.21 - Occlusion and stenosis of right carotid artery
--- OUTSIDE RECORDS SUMMARY | 2025-03-13 10:09 | XMS_ITS | Patient Health Record ---
Author Organization [facility] Address [address] [place] [address] Care Team Providers Care Records Management Clerk Name Role Phone John PENNY, Latoya Negrete Primary Care Provider Un available Black, Francine Unavailable [phone] Allergies Allergen (clinical drug ingredient) Drug/Non Drug [...] (HH) 5.6 HEMOGLOBIN A1C (GLYCOHEMOGLO BIN) Reviewed date:01/09/2025 02:51:01 PM Interpretation: Performing Lab: Notes/Report: HEMOGLOBIN A1C % (HH) 5.6 Reason For Referral No Information Medications Medication SIG (Take, Route, Frequency, Duration) Notes Start Date End Date Status Metoprolol Tartrate 25 MG Orally Active Ammonium Lactate 12 % 1 application Exte rnally Twice a day; Duration: 30 days Active Eliquis 5 MG as directed Orally Active glyBURIDE Active Bactrim DS 800-160 MG 1 tablet Orally Tw ice a day; Duration: 10 day(s) 01/30/2020 Not-Chucho ing Lisinopril Active Doxycycline Hyclate 100 MG 1 tablet Orally Once a day; Duration: 10 day(s) 03/26/2020 Not-Chucho ing Flomax Active Enablex Active Cipro 500 MG 1 tablet Orally ever y 12 hrs; Duration: 10 day(s) Not-Chucho ing Compression Stockings 20-30mm Hg 1 pair wear daily; Duration: 30 days Active Compression Stockings 20-30mm Hg 1 pair wear daily; Duration: 30 days Active Simvastatin 5 MG 1 tablet every eveni ng Orally Once a day; Duration: 30 day(s) Active Actos Not-Taking Loprox Not-Taking Immunizations Vaccine Route Administration Date Status Comme nts Influenza Unknown 03/18/2015 Administered Influenza Unknown 04/04/2016 Administered Influenza Unknown 03/03/2017 Administered Influenza Unknown 05/29/2018 Administered Influenza Unknown 04/02/2019 Administered Influenza Unknown 05/07/2020 Administered Influenza Unknown 06/17/2021 Administered Influenza Unknown 03/06/2023 Administered Influenza Unknown 04/02/2024 Administered COVID-19 Moderna Vaccine Unknown 06/02/2021 Administered [...] Polyneuropathy due to type 2 diabetes mellitus (980111002) Type 2 diabetes mellitus with diabetic polyneuropathy (E11.42) Active confirmed Vital Signs Blood pressure diastolic 76 mm Hg 01/09/2025 Height 5 ft 10 in in 01/09/2025 Blood pressure systolic 120 mm Hg 01/09/2025 Weight 228 lbs 01/09/2025 BMI 32.71 kg/m2 01/09/2025 Procedures Procedure Date Ordered Date Performed Result Body Sit e 89365-ECXWCTY NAIL, 6 OR MORE 06/03/2024 N/A 16024-UMZO SKIN LESIONS, OVER 4 06/03/2024 N/A 95445-JLDRBMO NAIL, 6 OR MORE 09/09/2024 N/A 29012-Rxaxlegn Plate 09/09/2024 N/A 33539-GNWT SKIN LESIONS, OVER 4 09/09/2024 N/A 35619-Ionxxfxr Plate 10/09/2024 N/A 12013-CHUQCYZ NAIL, 6 OR MORE 12/16/2024 N/A 19765-Enkbydkf Plate 12/16/2024 N/A 24391-WRQX SKIN LESIONS, OVER 4 12/16/2024 N/A 54703-Xzhkkbac Plate 01/09/2025 N/A 56901-Ykeodruw Plate Each Additional 01/09/2025 N/A Encounters Encounter Location Date Provider Diagnosis [address] [address] 06/03/2024 Francine Black Type 2 diabetes mellitus with diabetic polyneuropathy E11.42 ; Tinea unguium B35.1 ; Ingrown nail L60.0 and Edema, lower extremity R60.[address] [address] 09/09/2024 Francine Black Type 2 diabetes mellitus with diabetic polyneuropathy E11.42 ; Other hammer toe(s) (acquired), right foot M20.41 ; Tinea unguium B35.1 ; Ingrown nail L60.0 ; Edema, lower extremity R60.0 and Other hammer toe(s) (acquired), left foot M20.[address] [address] 10/09/2024 Francine Black Ingrown nail L60.0 a nd Type 2 diabetes mellitus with diabetic polyneuropathy E11.[address] [address] 12/16/2024 Francine Black Type 2 diabetes mellitus with diabetic polyneuropathy E11.42 ; Edema, lower extremity R60.0 ; Ingrown nail L60.0 and Tinea unguium B35.[address] [facility] [address] [address] 01/09/2025 Francine Black Ingrown nail L60.0 a nd Type 2 diabetes mellitus with diabetic polyneuropathy E11.[address] [facility] [address] 10/08/2024 Francine Black [facility] [address] 01/08/2025 Francine Ibrahim Assessments Encounter Date Diagnosis (ICD [...] 12/16/2024 Edema, lower extremity (ICD-10 - R60.0) 01/09/2025 Ingrown nail (ICD-10 - L60.0) 06/03/2024 Tinea unguium (ICD-10 - B35.1) 01/09/2025 Type 2 diabetes mellitus with diabetic polyneuropathy (ICD-10 - E11.42) 12/16/2024 Ingrown nail (ICD-10 - L60.0) 09/09/2024 Tinea unguium (ICD-10 - B35.1) 06/03/2024 Ingrown nail (ICD-10 - L60.0) 12/16/2024 Tinea unguium (ICD-10 - B35.1) 09/09/2024 Ingrown nail (ICD-10 - L60.0) 09/09/2024 Edema, lower extremity (ICD-10 - R60.0) 06/03/2024 Edema, lower extremity (ICD-10 - R60.0) 09/09/2024 Other hammer toe(s) (acquired), left foot (ICD-10 - M20.42) Plan Of Treatment Pending Test Test Name Order Date Microalbumin, 24 hr Urine 06/23/2015 00422-JPIEDMO NAIL, 6 OR MORE 12/16/2024 84684-TJNRJGF NAIL, 6 OR MORE 02/02/2023 60480-MMFIZOC NAIL, 6 OR MORE 05/11/2023 75168-FSWSBTJ NAIL, 6 OR MORE 08/10/2023 50154-UYNWYFR NAIL, 6 OR MORE 11/13/2023 66546-UFVDDZI NAIL, 6 OR MORE 02/26/2024 86477-XUMNBVW NAIL, 6 OR MORE 06/03/2024 97927-JDUZRRX NAIL, 6 OR MORE 09/09/2024 05179-LVATCKF NAIL, 6 OR MORE 05/05/2011 12832-UEWLNEB NAIL, 6 OR MORE 09/19/2011 11569-OGGBKBH NAIL, 6 OR MORE 11/03/2011 22489-FEGEQRF NAIL, 6 OR MORE 12/05/2011 22495-GUXZBYA NAIL, 6 OR MORE 11/27/2012 69593-CMLHVXZ NAIL, 6 OR MORE 07/29/2013 33816-YILDZHO NAIL, 6 OR MORE 01/27/2014 96401-UPLQMZY NAIL, 6 OR MORE 09/04/2015 78656-SGCQZOY NAIL, 6 OR MORE 12/02/2015 87453-LNLSKTJ NAIL, 6 OR MORE 02/08/2016 91391-HENGVUU NAIL, 6 OR MORE 04/25/2016 79402-RUTCXIO NAIL, 6 OR MORE 07/11/2016 79570-CZWATCJ NAIL, 6 OR MORE 09/08/2016 69363-RRKIVNV NAIL, 6 OR MORE 11/17/2016 37067-TTKNEZA NAIL, 6 OR MORE 02/02/2017 41693-JUKRULZ NAIL, 6 OR MORE 04/11/2017 68030-POAUNKP NAIL, 6 OR MORE 07/05/2017 04618-XXDYJFN NAIL, 6 OR MORE 09/14/2017 16932-XLDOPOY NAIL, 6 OR MORE 11/20/2017 53357-GCCOEME NAIL, 6 OR MORE 01/29/2018 78483-LSDGIMO NAIL, 6 OR MORE 06/12/2018 42965-SQFQPYV NAIL, 6 OR MORE 08/27/2018 10148-PVDHVKU NAIL, 6 OR MORE 11/05/2018 73606-GXGVLPX NAIL, 6 OR MORE 03/05/2019 19071-YLDRZGZ NAIL, 6 OR MORE 05/13/2019 81180-NQJUSQD NAIL, 6 OR MORE 08/05/2019 47374-QERRCOY NAIL, 6 OR MORE 10/28/2019 11823-GPZOLQA NAIL, 6 OR MORE 03/26/2020 77570-IAMHPZL NAIL, 6 OR MORE 12/23/2019 87800-AZVVPSB NAIL, 6 OR MORE 06/11/2020 56864-XLVBURB NAIL, 6 OR MORE 08/20/2020 01614-MXXDYYL NAIL, 6 OR MORE 10/22/2020 06203-EMQCKCV NAIL, 6 OR MORE 12/31/2020 05821-MYELEPR NAIL, 6 OR MORE 04/19/2021 23156-DYYYPNG NAIL, 6 OR MORE 07/15/2021 50131-FWLDXIB NAIL, 6 OR MORE 10/04/2021 03816-QKJZPVV NAIL, 6 OR MORE 02/08/2022 67391-CWZAMPW NAIL, 6 OR MORE 04/25/2022 29910-WUPATQB NAIL, 6 OR MORE 08/01/2022 42012-HRHMXFB NAIL, 6 OR MORE 11/03/2022 52288-EDHVYBD NAIL, 1-5 04/03/2015 15364-VFZQTEE NAIL, 1-5 06/16/2015 93838-IRSZGNM NAIL, 1-5 07/28/2014 75925-NQDTHSK NAIL, 1-5 04/30/2012 30715-FPNRSQE NAIL, 1-5 11/27/2014 22953-WGRCMLS NAIL, 1-5 01/26/2015 48156-Iujq Destruction, 1-14 04/25/2022 64373-Uzai Destruction, 1-14 08/01/2022 45268-Qcer Destruction, 1-14 11/03/2022 50284-Jewzcmda Plate 09/09/2024 71899-Cqcbzrsb Plate 10/09/2024 71645-Khldytjy Plate 02/26/2024 78818-Jklhacyp Plate 11/13/2023 70210-Pjwpmktf Plate 12/16/2024 36034-Yougxepx Plate 01/09/2025 76072-Szznhrdh Plate 11/03/2022 96167-Mpcwqdzs Plate 02/02/2023 28097-Fhhmuurq Plate 02/08/2022 00886-Eusvsfrv Plate 10/04/2021 65159-Wyhmcaaw Plate 10/28/2019 67109-Omdtceyp Plate 04/19/2021 65220-Stehlxqj Plate 12/31/2020 23432-Gjeoajws Plate 01/16/2020 99314-Hofolxmf Plate 01/23/2020 21441-Vsgjfhdx Plate 03/05/2019 17407-Otjxbdxa Plate 05/13/2019 72811-Nqcpjgnf Plate 08/27/2018 05478-Rggjjipd Plate 01/29/2018 05302-Xpxyrpkt Plate 06/12/2018 02511-Agkockvh Plate 01/26/2015 04591-Bkxsjgky Plate 04/03/2015 26656-Utjtyoul Plate 01/27/2014 08238-Evowrjje Plate 03/13/2014 51594-Twaasvsd Plate 07/29/2013 54277-Yejzmoga Plate 11/27/2012 66193-Lipvhsss Plate 03/09/2012 71836-Ilzyuqse Plate 04/30/2012 86555-Lyimtaio Plate 12/05/2011 44722-Pypaltuz Plate 02/23/2012 52078-Tcnfgjcf Plate 11/03/2011 95365-Njofcior Plate 09/19/2011 70506-Zetybohc Plate 05/05/2011 61616-Dthftfzp Plate 06/06/2011 29064-Txklmmrc Plate 07/28/2014 98594-Eqleyexu Plate 11/27/2014 74509-Mlgkezil Plate 07/11/2016 73569-Tepbkrkt Plate 04/25/2016 07818-Airuvhyr Plate 09/14/2017 06247-Qgdgkiew Plate 04/11/2017 78175-Zllbjvhk Plate 02/08/2016 31657-Jqnlppxk Plate 11/17/2016 85276-Cxidckvq Plate 09/08/2016 48690-Cuvmiqhe Plate Each Additional 23545-Wxabgijf Plate Each Additional 09/2011 22914-Wvsgwdos Plate Each Additional 82260-Pmnyyfrs Plate Each Additional 01/2012 26890-Iufjuchr Plate Each Additional 97242-Lmxplyda Plate Each Additional 96491-Fkvpvcxy Plate Each Additional 73106-Ueqoajty Plate Each Additional 07/2020 28110-Kdlrcozq Plate Each Additional 03/2022 93581-Tdbbccfu Plate Each Additional 04/2025 13461-QWA 01/11/2012 09719- Debride <25 sq cm 01/30/2012 14698- Debride <25 sq cm 02/23/2012 72487- Debride <25 sq cm 04/30/2012 50265- Debride <25 sq cm 04/24/2017 14611- Debride <25 sq cm 01/30/2020 83200- Debride <25 sq cm 02/13/2020 35182- Debride <25 sq cm 02/27/2020 66593- Debride <25 sq cm 01/23/2020 84648- Debride <25 sq cm 03/26/2020 55141- Debride <25 sq cm 04/06/2020 59707-VJOACYJ SKIN/TISSUE 03/09/2012 82937 I&D ABSCESS- SIMPLE,SINGLE 014 25776 I&D ABSCESS- SIMPLE,SINGLE 022 60991-AQFC SKIN LESIONS, OVER 4 10/05/19 22 22200-QHRQ SKIN LESIONS, OVER 4 08/01/19 23 06773-TDZS SKIN LESIONS, OVER 4 04/25/20 22 98857-IEIL SKIN LESIONS, OVER 4 02/03/20 23 51254-CTIS SKIN LESIONS, OVER 4 11/04/19 23 80607-VQJS SKIN LESIONS, OVER 4 12/23/19 20 59760-VWIZ SKIN LESIONS, OVER 4 10/28/19 20 28107-LLZA SKIN LESIONS, OVER 4 08/27/19 19 01282-HMOL SKIN LESIONS, OVER 4 06/12/20 18 88892-SWOX SKIN LESIONS, OVER 4 01/30/20 18 34356-WXXF SKIN LESIONS, OVER 4 11/06/19 19 99757-SLQH SKIN LESIONS, OVER 4 03/05/20 19 29502-QGZU SKIN LESIONS, OVER 4 05/13/20 19 70894-MQFT SKIN LESIONS, OVER 4 08/05/19 20 40759-COBT SKIN LESIONS, OVER 4 04/03/20 15 40437-KEBN SKIN LESIONS, OVER 4 07/05/19 18 43094-DSXR SKIN LESIONS, OVER 4 04/11/20 17 04219-JGBE SKIN LESIONS, OVER 4 11/21/19 18 86894-FORB SKIN LESIONS, OVER 4 09/15/19 18 24788-KKGB SKIN LESIONS, OVER 4 11/18/19 17 35777-EJCD SKIN LESIONS, OVER 4 09/09/19 17 98610-ZDDQ SKIN LESIONS, OVER 4 02/03/20 17 39954-JDUF SKIN LESIONS, OVER 4 04/25/20 16 32237-JNUN SKIN LESIONS, OVER 4 07/11/19 17 24074-GLJB SKIN LESIONS, OVER 4 02/08/20 16 60937-NXQL SKIN LESIONS, OVER 4 12/02/19 16 96770-UXHO SKIN LESIONS, OVER 4 09/04/19 16 04748-TQGF SKIN LESIONS, OVER 4 06/16/20 15 77688-RIEA SKIN LESIONS, OVER 4 11/13/19 24 36422-WTJQ SKIN LESIONS, OVER 4 02/26/20 24 19431-FPPM SKIN LESIONS, OVER 4 08/10/19 24 27151-WFLJ SKIN LESIONS, OVER 4 05/11/20 23 71263-RBDV SKIN LESIONS, OVER 4 12/17/19 25 65494-BLKN SKIN LESIONS, OVER 4 09/10/19 25 72137-JDFK SKIN LESIONS, OVER 4 06/03/20 24 84810-PADT SKIN LESIONS, 2 TO 4 03/26/20 20 70135-DIJB SKIN LESIONS, 2 TO 4 06/11/20 20 97755-EZDI SKIN LESIONS, 2 TO 4 08/20/19 21 57876-KEXM SKIN LESIONS, 2 TO 4 02/09/20 22 29597-OLTD SKIN LESIONS, 2 TO 4 07/15/19 22 45003-DVIP SKIN LESIONS, 2 TO 4 04/19/20 21 49197-YCKA SKIN LESIONS, 2 TO 4 01/01/20 21 52125-MTIN SKIN LESIONS, 2 TO 4 10/23/19 21 L0029-QCRNTOKF DYSTROPHIC NAILS ANY # Next Appt Details Provider Name:Francine Ibrahim , 03/20/2025 02:45:00 PM, [address] [place], [address], Insurance Providers Payer Name Payer Address Payer Phone Subscriber Number Group Number Insured Name Patient Relationship to Insured Coverage Start Date Coverage End Date [employer] Medicare Adv-22256 [address] [address] [place] [address] [id number] Alireza Gabriel Self - patient is the insured 6 Medical (General) History Medical History History ICD Code mumps back, hip, knee pain type II diabetes Hay fever Other hammer toe(s) (acquired), right fo ot M20.41 Other hammer toe(s) (acquired), left jasmin t M20.42 Surgical History Surgery Date(Month/Year) left knee arthroscopy 1995 left knee replacement 08/28/2012
--- OUTSIDE RECORDS SUMMARY | 2025-03-13 10:09 | XMS_ITS | Patient Health Record ---
Author Organization [facility] Address [address] [place] [address] Care Team Providers Care Binder Chainstitch Name Role Phone John PENNY, Latoya Primary Care Provider Isma Vu [phone] Allergies Allergen (clinical drug ingredient) Drug/Non Drug [...] Problem Status W/U Status Risk Notes Problem 761435302 Encounter for screening for malignant neoplasm of colon (Z12.11) Active confirmed Problem 570576092 History of adenomatous polyp of colon (Z86.010) Active confirmed Problem Iron deficiency anemia (96029517) Iron deficiency anemia (D50.9) Active confirmed Problem 149735828 Preprocedural examination (Z01.818) Active confirmed Problem History of polyp of colon (519649007) History of colon polyps (Z86.010) Active confirmed Problem 753817626 Long-term use of aspirin therapy (Z79.82) Active confirmed Problem 40406801 Constipation, unspecified constipation type (K59.00) Active confirmed Problem 64947563 Other iron deficiency anemia (D50.8) Active confirmed Problem 380842506 Anticoagulant long-term use (Z79.01) Active confirmed Problem 34089746 Iron deficiency anemia, unspecified iron deficiency anemia type (D50.9) Active confirmed Problem 32055987 Mucosal abnormality of duodenum (K31.9) Active confirmed Problem Diverticulosis of colon (564546736) Diverticulosis of colon (K57.30) Active confirmed Vital Signs Blood pressure diastolic 00 mm Hg 04/09/2024 Height 70 in 04/09/2024 Blood pressure systolic 00 mm Hg 04/09/2024 Weight 244 lbs 04/09/2024 BMI 35.01 kg/m2 04/09/2024 Encounters Encounter Location Date Provider Diagnosis [facility] [address] [facility] [address] [place] [address] 04/09/2024 Isma Yepez Iron deficiency anemia D50.9 [...] Provider Name:Isma Yepez , 04/08/2025 09:30:00 AM, [address] [place] [address], [address], [place], [address], Insurance Providers Payer Name Payer Address Payer Phone Subscriber Number Group Number Insured Name Patient Relationship to Insured Coverage Start Date Coverage End Date [facility] [address] [address] [place] [address] [id number] ALIX ROWAN Self - patient is the insured Medical (General) History Medical History History ICD Code Colonoscopy 07-20-2007 and 2003--tubular adenomas removed Hyperlipidemia NIDDM Hypertension Denies IN,CVA,Lung disease,renal disease BPH Colonoscopy in 04/2013 with [...]
== END 2025-03-13 12:41 | disposition home or self-care (01) ==
LOC: HO.HMCC 08:58
PROVIDERS: PCP Internal Medicine; Visit Provider Physician Assistant
DX: I65.21 Occlusion and stenosis of right carotid artery (principal); Z09 Encounter for follow-up examination after completed treatment for conditions other than malignant neoplasm; R29.6 Repeated falls; M25.512 Pain in left shoulder; T17.900A Unspecified foreign body in respiratory tract, part unspecified causing asphyxiation, initial encounter

== ENCOUNTER 2025-03-13 10:14 | Inpatient (IN) | payer MEDICARE, SELFPAY ==
[2025-03-13] VITALS (7 sets, daily range): BP systolic 92–125; BP diastolic 49–55; PULSE 64–93; RESP 14–18; TEMP 36.2–36.8; O2SAT 93–99; BMI 30.8; BMI 31.9
--- NOTE | ~2025-03-13 | CT_ITS ---
EXAMINATION: CT CHEST WITHOUT CONTRAST CLINICAL INFORMATION: sob, recent air travel COMPARISON: Same x-ray TECHNIQUE: Multidetector volumetric CT imaging of the chest was done. Axial MIP volume rendering provided. Sagittal and coronal reformatted images were obtained. DLP: 387 mGY*cm This CT examination was performed using dose optimization techniques as appropriate, variously including the following: *Automated exposure control *Adjustment of mA and/or kV according to patient size (this includes techniques or standardized protocols for targeted exams where dose is matched to indication/reason for exam; i.e. extremities or head) *Use of iterative reconstruction technique FINDINGS: LUNGS: Great vessels are mildly prominent. Patchy groundglass densities with a mosaic pattern present throughout the lungs somewhat sparing the lung bases and periphery. There is peribronchial thickening, more pronounced in the perihilar regions. No pulmonary nodules or masses are identified. MEDIASTINUM: A few shotty lymph nodes are identified. The heart size is not enlarged. CORONARY ARTERY CALCIFICATION: Present PLEURA: Small to medium sized pleural effusions layer posteriorly in the chest bilaterally. AXILLA: No lymphadenopathy. UPPER ABDOMEN: Calcified stone is present in the gallbladder. OSSEOUS STRUCTURES: Moderate degenerative changes are present in the thoracic spine with bridging anterior osteophytes versus syndesmophytes in the lower thoracic spine. Severe degenerative changes present in the left shoulder and mild degenerative changes are present in the right. CT/CT chest wo IV con IMPRESSION: Patchy ground glass densities and bilateral layering pleural effusions are present. This could represent pulmonary edema, atypical/viral pneumonia, or small airways disease. Cholelithiasis. Fleischner guidelines were followed. Electronically signed by: Ruy Whittaker MD 03/13/2025 01:16 PM EDT
--- NOTE | ~2025-03-13 | XR_ITS ---
EXAMINATION: XR SHOULDER 2 OR MORE VIEWS LEFT HISTORY: fall, left shoulder pain COMPARISON: There are no prior studies available for comparison. FINDINGS: Three views of the left shoulder are submitted. The bones are osteopenic. There is no fracture or dislocation. There is moderate osteoarthritis of the glenohumeral and acromioclavicular joints with joint space narrowing and osteophyte formation. The soft tissues are unremarkable. XR/XR shoulder LT min 2V IMPRESSION: Osteopenia. Osteoarthritis as described. Electronically signed by: Isma Moore MD 03/13/2025 12:44 PM EDT
--- NOTE | ~2025-03-13 | US_ITS ---
EXAMINATION: US KIDNEY BILATERAL HISTORY: ? hydronephrosis TECHNIQUE: Real-time grayscale ultrasound imaging of the kidneys was performed and images were reviewed. COMPARISON: Comparison is made with the prior examination dated 12/15/2022. Correlation is also made with a CT of the abdomen dated 03/13/2025. FINDINGS: Right kidney: The right kidney measures 10.9 x 5.9 x 5.4 cm. Renal parenchymal echotexture and thickness are normal. There are no masses. There is no hydronephrosis or renal calculi. Left Kidney: The left kidney measures 11.2 x 5.8 x 5.3 cm. Renal parenchymal echotexture and thickness are normal. There are no masses. There is no hydronephrosis or renal calculi. US/US renal BI IMPRESSION: Unremarkable renal ultrasound. Electronically signed by: Isma Moore MD 03/14/2025 03:38 PM EDT
--- NOTE | ~2025-03-13 | CT_ITS ---
EXAMINATION: CT ABDOMEN AND PELVIS WITHOUT CONTRAST CLINICAL INFORMATION: Status post fall. COMPARISON: May 26, 2018. TECHNIQUE: Multidetector volumetric imaging was performed from the superior aspect of the liver through the pubic symphysis. Sagittal and coronal reformatted images were obtained on the technologist's workstation. This CT examination was performed using dose optimization techniques as appropriate, variously including the following: *Automated exposure control *Adjustment of mA and/or kV according to patient size (this includes techniques or standardized protocols for targeted exams where dose is matched to indication/reason for exam; i.e. extremities or head) *Use of iterative reconstruction technique DLP: 1078.66 mGy centimeter. FINDINGS: Inadequate evaluation of the intra-abdominal solid organs and vascular structures due to lack of IV contrast. Bilateral pleural effusions, moderate to large volume on the left side and small to moderate volume on the right side. No peripancreatic fluid collection. No peripancreatic fluid collection. No perisplenic fluid collection. No hemoperitoneum. No pneumoperitoneum. No hematoma, mesenteric or retroperitoneal. No peripancreatic fluid collection/hematoma. No periaortic edema pattern or fluid collections. Liver measures 12 cm with prominent caudate lobe and subtle nodular surface. Cholelithiasis. Calcified plaques throughout the mesenteric arteries abdominal aorta, thoracic aorta, iliac arteries, renal arteries, coronary arteries and femoral arteries. No aneurysm, abdominal aorta. 2 cm ectasia, right common iliac artery. No hydronephrosis or nephrolithiasis in either kidney. Fluid-filled bladder without perivesical edema pattern or fluid collections. Multilevel thoracolumbar spondylosis. Superior endplate compression deformity representing 30% volume loss with sclerosis at T12. Likely old compression deformities at L1, L3 levels. Syndesmophyte formation throughout the lower thoracic spine. No gross malalignment in the axial skeleton. Degenerative changes in the coxofemoral joints. Osteopenia versus the process. Bony pelvis is intact. Coxofemoral joints are intact with normal alignment. CT/CT abdomen pelvis wo IV con IMPRESSION: Limited examination demonstrated no gross intra-abdominal organ injury. Acute to subacute superior endplate compression deformity at T12. Bilateral pleural effusions. Please refer to CT chest. Fleischner guidelines were followed. Electronically signed by: Jesus Clark MD 03/13/2025 01:10 PM EDT
--- NOTE | ~2025-03-13 | CT_ITS ---
EXAMINATION: CT HEAD WITHOUT CONTRAST CLINICAL INFORMATION: Fall COMPARISON: None available. TECHNIQUE: Contiguous axial imaging was performed from the skull base to vertex without intravenous administration of contrast. This CT examination was performed using dose optimization techniques as appropriate, variously including the following: *Automated exposure control *Adjustment of mA and/or kV according to patient size (this includes techniques or standardized protocols for targeted exams where dose is matched to indication/reason for exam; i.e. extremities or head) *Use of iterative reconstruction technique DLP: 1310 mGY*cm FINDINGS: There is no acute ischemic change. Moderate periventricular hypodensities are present in the white matter. There is no intracranial hemorrhage. There is no mass-effect or midline shift. Basal cisterns and ventricles are within normal limits for age/cerebral volume. Orbits are symmetrical and unremarkable. Paranasal sinuses and mastoid air cells are pneumatized. There are no bony abnormalities. CT/CT head/brain wo IV con IMPRESSION: No acute intracranial abnormality. Moderate white matter changes likely related to small vessel angiopathy. Electronically signed by: Ruy Whittaker MD 03/13/2025 11:10 AM EDT
--- NOTE | ~2025-03-13 | US_ITS ---
EXAMINATION: US TRIPLEX UPPER EXTREMITY, LEFT CLINICAL INFORMATION: Left arm swelling COMPARISON: None available. TECHNIQUE: Color-flow triplex imaging with spectral analysis and compression Doppler was performed on the left upper extremity. FINDINGS: The left internal jugular, subclavian, and axillary veins are patent and free of thrombus. The imaged segment of the left brachiocephalic vein is patent. Spectral doppler waveforms are normal. The brachial, basilic, cephalic, radial, and ulnar veins are patent and compressible. US/US venous duplex UE LT IMPRESSION: No evidence of deep venous thrombosis involving the left upper extremity. Electronically signed by: Ruy Whittaker MD 03/17/2025 05:43 PM EDT
--- NOTE | ~2025-03-13 | US_ITS ---
EXAMINATION: US TRIPLEX LOWER EXTREMITY, BILATERAL CLINICAL INFORMATION: Leg edema COMPARISON: None available. TECHNIQUE: Color-flow triplex imaging with spectral analysis and compression Doppler were performed on the bilateral lower extremities. FINDINGS: Respiratory variation, normal compression and augmented flow are noted throughout the bilateral lower extremities. The visualized common femoral vein, great saphenous vein, femoral vein, popliteal vein and midcalf posterior tibial venous segments show no evidence of deep venous thrombosis bilaterally. Right peroneal vein could not be well evaluated. Left peroneal vein was patent. US/US venous duplex LE BI IMPRESSION: No evidence of deep venous thrombosis in the evaluated veins of the bilateral lower extremities. Electronically signed by: Emmett Huang MD 03/14/2025 07:10 AM EDT
--- NOTE | ~2025-03-13 | CT_ITS ---
EXAMINATION: CT CERVICAL SPINE WITHOUT CONTRAST CLINICAL INFORMATION: Multiple falls COMPARISON: None available. TECHNIQUE: Axial imaging was performed from the base of the skull through T2 without IV contrast. Coronal and sagittal reformatted images were generated from the original axial data set. ALARA: The examination used one or more of the following radiation dose reduction techniques: Automated exposure control, iterative reconstruction, and/or adjustment of mA and/or KV. DLP: 439 mGY*cm FINDINGS: There is no prevertebral soft tissue edema. Atherosclerotic calcifications are present in the carotid arteries. Soft tissues are otherwise unremarkable. No fractures are evident. Multilevel degenerative changes are most pronounced at C3-4 and C4-5 where there is moderate disc space narrowing, degenerative endplate irregularity, with uncovertebral and facet osteophytes. There is also sclerosis and osteophytes with degenerative cystic change noted in the anterior atlantodental articulation. Focal sclerotic lesion within the right aspect of clivus is consistent with a benign bone island. Mosaic groundglass densities are present in the lung apexes. CT/CT cervical spine wo IV con IMPRESSION: No acute fracture. Multilevel degenerative disc disease and facet osteoarthritis are most advanced at C3-4 and C4-5. Nonspecific groundglass densities are present in the lung apexes, correlate for signs symptoms of an atypical pneumonia. Electronically signed by: Ruy Whittaker MD 03/13/2025 11:15 AM EDT
--- NOTE | ~2025-03-13 | XR_ITS ---
EXAMINATION: XR CHEST 1 VIEW HISTORY: SOB COMPARISON: Comparison is made with the prior examination dated 12/03/2018. FINDINGS: Two AP portable views of the chest performed at 12:31 PM is submitted. The lungs are expanded and clear. There is no pleural effusion, pneumothorax, or pulmonary vascular congestion. The heart is normal in size. There is calcification of the aortic knob. The bones are intact. XR/XR chest 1V IMPRESSION: No acute cardiopulmonary abnormality. Electronically signed by: Isma Moore MD 03/13/2025 12:46 PM EDT
--- NOTE | 2025-03-13 10:27 | ECG_ITS ---
Test Reason : FALL Blood Pressure : */* mmHG Vent. Rate : 83 BPM Atrial Rate : * BPM P-R Int : * ms QRS Dur : 106 ms QT Int : 376 ms P-R-T Axes : * -9 60 degrees QTcB Int : 441 ms Atrial fibrillation Abnormal ECG When compared with ECG of 20-Jul-2021 08:30, No significant change was found Referred By: Generic ED Physician Electronically Signed By: ERI YBARRA MD
--- NOTE | 2025-03-13 10:29 | ED.FALL ---
HPI - Fall General Chief Complaint: Fall Stated Complaint: Fall, shoulder injury Time Seen by Provider: 03/13/25 10:37 Source: patient and family ([id number] at bedside) Mode of arrival: ambulatory Limitations: no limitations History of Present Illness ED Provider: ASH Johnson HPI Narrative: 79-year-old male accompanied by daughter in law with medical history of T2DM, BPH, HTN, HLD, AFib on Eliquis, presents to ED due to weakness with L shoulder and lumbar back pain. Patient has extensive medical history within the last 8 weeks. Patient traveled by airplane to [place] and arrived on 01/21/25 to visit family. He states when he left he was experiencing B/L leg swelling and shortness of breath. Daughter in law states when patient was at the airport to return home, he was extremely weak with confusion, altered mental status and was taken to the hospital. She states he was hospitalized due to elevated carbon dioxide , heart failure, and pneumonia. She states he stayed in the hospital for 36 days and was intubated twice. On discharge patient returned to his sons home in [place] for a few days before coming back to [place]. During this time, patient was walking into the kitchen when he lost his footing and fell hitting his face. Daughter in law states family was home but nobody was in the room with him to witness this fall. Since this incident patient has been complaining of lumbar back pain, L shoulder pain and still experiencing SOB. Patient returned back to [place] this past Monday02/06/25 and fell at home when getting out of bed due to his legs being weak and fell onto his buttocks, denies headstrike, DIL states family was home but nobody was in the room with him to witness fall. Patient saw PCP this morning who expressed to patient and his family that he is unsafe at home alone and needs short term rehab for extensive physical therapy to get back to baseline strength. Related Data Home Medications ?Medication ?Instructions ?Recorded ?Confirmed acetaminophen 500 mg tablet 500 mg PO Q6H PRN Fever Or Pain 03/13/25 03/13/25 alprazolam 0.5 mg tablet 0.5 mg PO Q8H PRN anxiety 03/13/25 03/13/25 aspirin 81 mg tablet 81 mg PO DAILY 03/13/25 03/13/25 atorvastatin 40 mg tablet (Lipitor) 40 mg PO BEDTIME 03/13/25 03/13/25 bumetanide 1 mg tablet 1 mg PO BID 03/13/25 03/13/25 doxazosin 1 mg tablet (Cardura) 1 mg PO BEDTIME 03/13/25 03/13/25 lisinopril 20 mg tablet 20 mg PO BID 03/13/25 03/13/25 metformin 1,000 mg tablet 1,000 mg PO BID 03/13/25 03/13/25 metolazone 2.5 mg tablet 2.5 mg PO DAILY 03/13/25 03/13/25 metoprolol tartrate 50 mg tablet 25 mg PO BID 03/13/25 03/13/25 oxycodone 5 mg tablet 5 mg PO Q6H PRN Pain 03/13/25 03/13/25 potassium chloride 20 mEq 20 meq PO DAILY 03/13/25 03/13/25 tablet,extended release(part/cryst) Previous Rx's ?Medication ?Instructions ?Recorded apixaban 5 mg tablet (Eliquis) 5 mg PO BID #180 tabs 06/04/24 blood sugar diagnostic (OneTouch #100 ea 09/24/24 Verio test strips) blood-glucose meter (OneTouch #1 ea 09/24/24 Verio Flex Meter) lancets (Accu-Chek Softclix #100 ea 09/24/24 Lancets) tamsulosin 0.4 mg capsule 0.4 mg PO DAILY 90 days #90 caps 12/25/24 Allergies Allergy/AdvReac Type Severity Reaction Status Date / Time cephalexin (Keflex) Allergy Intermediate hives Verified 03/13/25 10:24 levofloxacin Allergy Intermediate Hives Verified 03/13/25 10:24 cetirizine (From [facility]) AdvReac Intermediate Fatigue Verified 03/13/25 10:24 Review of Systems Review of Systems: CONST: Negative for fever, body aches and chills. HENT: Negative for neck pain/stiffness, headache, congestion, sore throat, swelling. EYES: Negative for discharge/pain or vision changes. RESP: Negative for cough/hemoptysis. POS SOB CV: Negative chest pain, difficulty breathing, palpitations. ABD: Negative pain, nausea, vomiting. : Negative increase frequency, dysuria, blood in urine or stool. MUSC: Negative for muscle aches, edema. POS L shoulder pain, lumbar back pain SKIN: Negative rash, lesions/sores. NEURO: Negative headache, dizziness. POS weakness Yes all other systems are reviewed and are negative [facility] Past Medical History Attestation statement: The following information was validated with the patient. 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 Social History Social History Household Members: None Housing: House Are you a primary career guidance technician to a significant other at home: No Do you presently have visiting nurse or other home services: No Patient Tobacco Use Status: Never used Tobacco e-Cigarette/Vaping Use: Never Used Second Hand Smoke Exposure: Yes Advance Directives Date on File: 12/28/23 service: No Current occupational status: retired Cognitive needs: No Hearing needs: No Vision needs: Yes Physical Exam Vital Signs: Vital Signs: Last Vital Signs Temp 97.0 F 03/15/25 07:42 Pulse 89 03/15/25 10:00 Resp 18 03/15/25 07:42 BP 103/56 L 03/15/25 10:00 Pulse Ox 97 03/15/25 07:42 O2 Del Method Room Air 03/15/25 07:42 BMI result Body Mass Index 30.8 GENERAL APPEARANCE: ?AxOx4, no acute distress. HEENT: ?NC, MMM. EOMI, clear conjunctiva, oropharynx clear. Scabbed abrasion of central forehead and over bridge of nose NECK: ?Supple without lymphadenopathy.? No stiffness or restricted ROM. HEART:? Normal rate and regular rhythm, normal S1/S2, no m/r/g LUNGS: Lungs with diminished lung sounds of B/L lung bases, crackles auscultated ABDOMEN: ?Soft, nontender, nondistended BACK: No CVAT, no obvious deformity. EXTREMITIES: ?Without cyanosis, clubbing or edema. NEUROLOGICAL: ?Grossly nonfocal. Alert and oriented, moving all 4 extremities. Skin: ?Warm and dry without any rash. Medications Administered Generic Name Dose Route Start Last Admin Trade Name Freq PRN Reason Stop Dose Admin Apixaban 2.5 mg 03/14/25 09:00 03/15/25 09:59 Apixaban 2.5 Mg Tablet PO 2.5 mg BID NANCY Administration Aspirin 81 mg 03/14/25 09:00 03/15/25 10:00 Aspirin 81 Mg Tab.Chew PO 81 mg DAILY NANCY Administration Atorvastatin Calcium 40 mg 03/14/25 21:00 03/14/25 20:04 Atorvastatin Calcium 40 Mg Tablet PO 40 mg BEDTIME NANCY Administration Doxazosin Mesylate 1 mg 03/14/25 21:00 03/14/25 20:04 Doxazosin Mesylate 1 Mg Tablet PO 1 mg BEDTIME NANCY Administration Protocol Insulin Human Lispro 0 unit 03/13/25 21:00 03/15/25 12:56 Insulin Lispro 100 Unit/Ml 3 Ml Vial SUBCUT 2 unit QIDACHS NANCY Administration Protocol Lidocaine 1 patch 03/14/25 10:35 03/15/25 09:56 Lidocaine 4 % Patch Adh..Patch TRANSDERMA 1 patch DAILY NANCY Administration Protocol Metoprolol Tartrate 25 mg 03/14/25 09:00 03/15/25 10:00 Metoprolol Tartrate 25 Mg Tablet PO 25 mg BID NANCY Administration Protocol Morphine Sulfate 4 mg 03/13/25 18:25 03/14/25 17:02 Morphine Sulfate 4 Mg/Ml Cartridge IVPUSH 4 mg Q4H PRN Administration Pain, Severe (Pain Scale 7-10) Protocol Sodium Chloride 3 ml 03/14/25 00:00 03/15/25 10:02 0.9 % Sodium Chloride Flush 3 Ml Syringe IVFLUSH 3 ml QSHIFT NANCY Administration Tamsulosin HCl 0.4 mg 03/14/25 09:00 03/15/25 09:59 Tamsulosin Hcl 0.4 Mg Capsule PO 0.4 mg DAILY NANCY Administration Discontinued Medications Generic Name Dose Route Start Last Admin Trade Name Freq PRN Reason Stop Dose Admin Diphenhydramine HCl 12.5 mg 03/13/25 13:20 03/13/25 13:38 Diphenhydramine Hcl 50 Mg/Ml Vial IVPUSH 03/13/25 13:21 12.5 mg ONCE ONE Administration Acetaminophen 1,000 mg in 100 mls @ 400 mls/hr 03/13/25 11:29 03/13/25 12:00 Ofirmev IV 03/13/25 11:43 Infused ONCE ONE Infusion Lactated Ringer's 1,000 mls @ 500 mls/hr 03/13/25 11:33 03/13/25 14:41 Lr IV 03/13/25 13:32 Infused .Q2H ONE Infusion Piperacillin Sod/Tazobactam 50 mls @ 100 mls/hr 03/13/25 13:20 03/13/25 14:41 Sod 2.25 gm/ Sodium Chloride IV 03/13/25 13:49 Infused ONCE ONE Infusion Azithromycin 500 mg/ Sodium 250 mls @ 125 mls/hr 03/13/25 13:20 03/13/25 16:40 Chloride IV 03/13/25 15:19 Infused ONCE ONE Infusion Lactated Ringer's 1,000 mls @ 100 mls/hr 03/13/25 18:30 03/14/25 12:08 Lr IVCONT Infused .Q10H NANCY Infusion Oxycodone HCl 5 mg 03/13/25 18:25 03/14/25 07:54 Oxycodone Hcl Immed Release 5 Mg Tablet PO 5 mg Q6H PRN Administration Pain, Moderate(Pain Scale 4-6) Medical Decision Making Medical Decision Making MDM Narrative: 79-year-old male accompanied by daughter in law with medical history of T2DM, BPH, HTN, HLD, AFib on Eliquis with recent extensive medical history. Patient recently traveled to [place] 01/21/2025 and upon his return home had to be hospitalized due to confusion, AMS, weakness. Patient was hospitalized for 36 days due to CHF exacerbation and pneumonia, patient was intubated twice during this course. When patient left the hospital he returned to his son's house in [place] for a few days before coming home to [place], where he experienced an unwitnessed fall hitting his face due to weakness. Patient got back to [place] this past Monday on 03/10/2025 and experienced another fall that was unwitnessed, but denies head strike. Patient saw his primary care doctor this morning who stated is not safe for him to be home, and recommended evaluation in the ED today. Patient is complaining of left shoulder pain, lumbar back pain and shortness of breath. Plan: Labs, viral serology, UA, EKG, CT head/brain, CT cervical spine, CT abdomen and pelvis, CT chest, CXR, XR L shoulder Risk factors reviewed- HTN, Afib on Eliquis, recent travel, recent prolonged hospital stay with abx therapy in the last 90 days. Course 14:53- EKG reveals AFib without RVR, initial troponin of 7.6 Labs without leukocytosis/leukopenia, normocytic anemia with HGB of 9.4, HCT of 27.7, left shift with neutrophils of 79.4, hyponatremia with a sodium of 133, elevated creatinine at 3.0 (baseline 1.0 on chart review), lactic acid of 2.1, repeat lactic acid increased to 2.2- patient on metformin BID may be elevated due to this. BNP WNL at 96. Viral serology negative. Occult blood stool negative CT head brain negative for acute intracranial abnormality. CT chest reveals patchy ground-glass densities and bilateral layering pleural effusions, questioning pulmonary edema, atypical/viral pneumonia, or small airway disease CT C-spine without fracture or dislocation however does reveal multilevel degenerative disc disease and facet osteoarthritis, nonspecific ground-glass densities in the lung apexes questioning atypical pneumonia. CT abdomen and pelvis reveals an acute/subacute superior endplate compression deformity at T12- patient states this is chronic, with bilateral pleural effusions, nonobstructing cholelithiasis at 13:20 on 03/13/2025 I suspected sepsis and began empirical coverage for atypical pneumonia in patient with recent hospital stay and recent antibiotic therapy, patient medicated with 500 mg azithromycin, 2.25 g of Zosyn, with 12.5 mg of Benadryl to cover for hives as patient has a hive reaction with cephalosporins. Patient was given 500 mL of IV fluids, 1g of IV tylenol for pain. CXR negative for acute cardiopulmonary processes. XR L shoulder negative for fracture or dislocation, however does reveal osteopenia and osteoarthritis of the glenohumeral and acromioclavicular joints with osteophytes. Patient with progressively worsening weakness, family is looking for STR placement. Differential Diagnosis Differential Diagnoses: The differential diagnosis associated with the presentation includes ACS Dysrhythmia Pneumonia Viral illness Deconditioning Failure to thrive Lumbar fracture Shoulder fracture Admission/Observation Consideration of admission/observation: Escalation of care including admission/observation considered Lab Data [facility] Lab Attestation statement: I reviewed the patient's lab results. 03/14/25 05:31 03/15/25 05:51 Labs: Lab Results 03/13/25 03/13/25 03/13/25 Range/Units 11:27 12:09 12:17 WBC 7.6 (4.8-10.8) X10*3/uL RBC 3.20 L D (4.60-5.80) X10*6/uL Hgb 9.4 L (14.0-18.0) g/dl Hct 27.7 L D (42.0-52.0) % MCV 86.6 (80.0-98.0) fL MCH 29.4 (27.0-33.0) pg MCHC 33.9 (31.0-36.0) g/dl RDW 22.8 H (11.0-16.0) % Plt Count 149 L (160-400) X10*3/uL MPV TNP Immature Gran % (Auto) 0.5 H (0.0-0.4) % Neut % (Auto) 79.4 H (45-73) % Lymph % (Auto) 9.7 L (20-40) % [place] % (Auto) 9.2 (2-11) % Eos % (Auto) 0.8 (0-4) % Baso % (Auto) 0.4 (0-2) % Lymph # (Auto) 0.7 L (1.2-4.9) X10*3/uL [place] # (Auto) 0.7 (0.1-1.2) X10*3/uL Eos # (Auto) 0.1 (0.0-0.4) X10*3/uL Baso # (Auto) 0.0 (0.0-0.2) X10*3/uL Abs Immat Gran (auto) 0.04 H (0.00-0.03) X10*3/uL Absolute Neuts (auto) 6.0 (2.0-8.3) x10*3/uL Absolute Nucleated RBC 0.000 (0.0-0.012) X10*3/uL Nucleated RBC % (auto) 0.0 (0.0-0.2) /100WBC PT 22.9 H (10.9-12.4) SEC INR 2.0 H (0.9-1.1) VBG pH 7.43 (7.32-7.43) VBG pCO2 33 mmHg VBG pO2 45 mmHg VBG HCO3 22 (22-26) mmol/L VBG O2 Saturation 73.0 % VBG Base Excess -1.0 mmol/L Sodium 133 L (135-145) mmol/L Potassium 4.8 (3.3-5.1) mmol/L Chloride 99 (96-108) mmol/L Carbon Dioxide 21 L (22-29) mmol/L Anion Gap 18 (12-20) BUN 75 H (9-16) mg/dL Creatinine 3.08 H (0.5-1.4) mg/dL Estim Creat Clear Calc 22.0 Estimated GFR 20 Random Glucose 184 H (60-115) mg/dL Lactic Acid 2.1 H* (0.5-2.0) mmol/L Lactic Acid F/U @ 2Hr (0.5-2.0) mmol/L Lactic Acid F/U @ 4Hr (0.5-2.0) mmol/L Calcium 8.7 (8.4-10.2) mg/dL Total Bilirubin 0.7 (0.0-1.0) mg/dL AST 14 (5-37) U/L ALT 8 (0-40) U/L Alkaline Phosphatase 96 (39-117) U/L Troponin I High Sens 7.6 (<3.5-35.0) ng/L B-Natriuretic Peptide 96 (<100) pg/mL Total Protein 6.0 L (6.5-8.0) g/dL Albumin 3.5 (3.5-5.0) g/dL Stool Occult Blood (NEGATIVE) COVID-19 (BERNARDO) (Negative) COVID-19 Clin Com Influenza Type A (DORIS) (Negative) Influenza Type B (DORIS) (Negative) Influenza A & B Note 03/13/25 03/13/25 03/13/25 Range/Units 12:47 14:48 15:04 WBC (4.8-10.8) X10*3/uL RBC (4.60-5.80) X10*6/uL Hgb (14.0-18.0) g/dl Hct (42.0-52.0) % MCV (80.0-98.0) fL MCH (27.0-33.0) pg MCHC (31.0-36.0) g/dl RDW (11.0-16.0) % Plt Count (160-400) X10*3/uL MPV Immature Gran % (Auto) (0.0-0.4) % Neut % (Auto) (45-73) % Lymph % (Auto) (20-40) % [place] % (Auto) (2-11) % Eos % (Auto) (0-4) % Baso % (Auto) (0-2) % Lymph # (Auto) (1.2-4.9) X10*3/uL [place] # (Auto) (0.1-1.2) X10*3/uL Eos # (Auto) (0.0-0.4) X10*3/uL Baso # (Auto) (0.0-0.2) X10*3/uL Abs Immat Gran (auto) (0.00-0.03) X10*3/uL Absolute Neuts (auto) (2.0-8.3) x10*3/uL Absolute Nucleated RBC (0.0-0.012) X10*3/uL Nucleated RBC % (auto) (0.0-0.2) /100WBC PT (10.9-12.4) SEC INR (0.9-1.1) VBG pH (7.32-7.43) VBG pCO2 mmHg VBG pO2 mmHg VBG HCO3 (22-26) mmol/L VBG O2 Saturation % VBG Base Excess mmol/L Sodium (135-145) mmol/L Potassium (3.3-5.1) mmol/L Chloride (96-108) mmol/L Carbon Dioxide (22-29) mmol/L Anion Gap (12-20) BUN (9-16) mg/dL Creatinine (0.5-1.4) mg/dL Estim Creat Clear Calc Estimated GFR Random Glucose (60-115) mg/dL Lactic Acid (0.5-2.0) mmol/L Lactic Acid F/U @ 2Hr 2.2 H* (0.5-2.0) mmol/L Lactic Acid F/U @ 4Hr (0.5-2.0) mmol/L Calcium (8.4-10.2) mg/dL Total Bilirubin (0.0-1.0) mg/dL AST (5-37) U/L ALT (0-40) U/L Alkaline Phosphatase (39-117) U/L Troponin I High Sens (<3.5-35.0) ng/L B-Natriuretic Peptide (<100) pg/mL Total Protein (6.5-8.0) g/dL Albumin (3.5-5.0) g/dL Stool Occult Blood NEGATIVE (NEGATIVE) COVID-19 (BERNARDO) Negative (Negative) COVID-19 Clin Com See Note Influenza Type A (DORIS) Negative (Negative) Influenza Type B (DORIS) Negative (Negative) Influenza A & B Note See Note 03/13/25 03/13/25 Range/Units 15:28 17:29 WBC (4.8-10.8) X10*3/uL RBC (4.60-5.80) X10*6/uL Hgb (14.0-18.0) g/dl Hct (42.0-52.0) % MCV (80.0-98.0) fL MCH (27.0-33.0) pg MCHC (31.0-36.0) g/dl RDW (11.0-16.0) % Plt Count (160-400) X10*3/uL MPV Immature Gran % (Auto) (0.0-0.4) % Neut % (Auto) (45-73) % Lymph % (Auto) (20-40) % [place] % (Auto) (2-11) % Eos % (Auto) (0-4) % Baso % (Auto) (0-2) % Lymph # (Auto) (1.2-4.9) X10*3/uL [place] # (Auto) (0.1-1.2) X10*3/uL Eos # (Auto) (0.0-0.4) X10*3/uL Baso # (Auto) (0.0-0.2) X10*3/uL Abs Immat Gran (auto) (0.00-0.03) X10*3/uL Absolute Neuts (auto) (2.0-8.3) x10*3/uL Absolute Nucleated RBC (0.0-0.012) X10*3/uL Nucleated RBC % (auto) (0.0-0.2) /100WBC PT (10.9-12.4) SEC INR (0.9-1.1) VBG pH (7.32-7.43) VBG pCO2 mmHg VBG pO2 mmHg VBG HCO3 (22-26) mmol/L VBG O2 Saturation % VBG Base Excess mmol/L Sodium (135-145) mmol/L Potassium (3.3-5.1) mmol/L Chloride (96-108) mmol/L Carbon Dioxide (22-29) mmol/L Anion Gap (12-20) BUN (9-16) mg/dL Creatinine (0.5-1.4) mg/dL Estim Creat Clear Calc Estimated GFR Random Glucose (60-115) mg/dL Lactic Acid (0.5-2.0) mmol/L Lactic Acid F/U @ 2Hr (0.5-2.0) mmol/L Lactic Acid F/U @ 4Hr 1.5 (0.5-2.0) mmol/L Calcium (8.4-10.2) mg/dL Total Bilirubin (0.0-1.0) mg/dL AST (5-37) U/L ALT (0-40) U/L Alkaline Phosphatase (39-117) U/L Troponin I High Sens 5.8 (<3.5-35.0) ng/L B-Natriuretic Peptide (<100) pg/mL Total Protein (6.5-8.0) g/dL Albumin (3.5-5.0) g/dL Stool Occult Blood (NEGATIVE) COVID-19 (BERNARDO) (Negative) COVID-19 Clin Com Influenza Type A (DORIS) (Negative) Influenza Type B (DORIS) (Negative) Influenza A & B Note Independent Interpretation I performed an independent interpretation of an: EKG and Plain X-Ray Interpretation: I independently interpreted the EKG which reveals AFib without RVR, no ST-elevation/depression, T-wave abnormality Vent. Rate : 83 BPM Atrial Rate : * BPM P-R Int : * ms QRS Dur : 106 ms QT Int : 376 ms P-R-T Axes : * -9 60 degrees QTcB Int : 441 ms Atrial fibrillation Abnormal ECG When compared with ECG of 20-Jul-2021 08:30, No significant change was found I personally interpreted the chest x-ray which was negative for any acute cardiopulmonary processes, I agree with the radiologist's interpretation I personally interpreted the XR L shoulder which was negative for fracture or dislocation, I agree with the radiologist's interpretation I personally interpreted the CT head/brain which was negative for acute intracranial abnormalities, I agree with the radiologist's interpretation I personally interpreted the CT abdomen and pelvis which shows a possible chronic compression fracture of the thoracic spine, I agree with the radiologist's interpretation Radiology Impression Discussion of test interpretation with radiology: I have reviewed the radiologist's reading. Radiologist Impression: CT head brain FINDINGS: There is no acute ischemic change. Moderate periventricular hypodensities are present in the white matter. There is no intracranial hemorrhage. There is no mass-effect or midline shift. Basal cisterns and ventricles are within normal limits for age/cerebral volume. Orbits are symmetrical and unremarkable. Paranasal sinuses and mastoid air cells are pneumatized. There are no bony abnormalities. CT/CT head/brain wo IV con IMPRESSION: No acute intracranial abnormality. Moderate white matter changes likely related to small vessel angiopathy. Electronically signed by: Ruy Whittaker MD 03/13/2025 11:10 AM EDT Dictated By: Ruy Whittaker MD Signed By: <Electronically signed by Ruy Whittaker MD in [place]> 03/13/[address] cervical spine FINDINGS: There is no prevertebral soft tissue edema. Atherosclerotic calcifications are present in the carotid arteries. Soft tissues are otherwise unremarkable. No fractures are evident. Multilevel degenerative changes are most pronounced at C3-4 and C4-5 where there is moderate disc space narrowing, degenerative endplate irregularity, with uncovertebral and facet osteophytes. There is also sclerosis and osteophytes with degenerative cystic change noted in the anterior atlantodental articulation. Focal sclerotic lesion within the right aspect of clivus is consistent with a benign bone island. Mosaic groundglass densities are present in the lung apexes. CT/CT cervical spine wo IV con IMPRESSION: No acute fracture. Multilevel degenerative disc disease and facet osteoarthritis are most advanced at C3-4 and C4-5. Nonspecific groundglass densities are present in the lung apexes, correlate for signs symptoms of an atypical pneumonia. Electronically signed by: Ruy Whittaker MD 03/13/2025 11:15 AM EDT RP Dictated By: Ruy Whittaker MD Signed By: <Electronically signed by Ruy Whittaker MD in [place]> 03/13/[address] abdomen and pelvis FINDINGS: Inadequate evaluation of the intra-abdominal solid organs and vascular structures due to lack of IV contrast. Bilateral pleural effusions, moderate to large volume on the left side and small to moderate volume on the right side. No peripancreatic fluid collection. No peripancreatic fluid collection. No perisplenic fluid collection. No hemoperitoneum. No pneumoperitoneum. No hematoma, mesenteric or retroperitoneal. No peripancreatic fluid collection/hematoma. No periaortic edema pattern or fluid collections. Liver measures 12 cm with prominent caudate lobe and subtle nodular surface. Cholelithiasis. Calcified plaques throughout the mesenteric arteries abdominal aorta, thoracic aorta, iliac arteries, renal arteries, coronary arteries and femoral arteries. No aneurysm, abdominal aorta. 2 cm ectasia, right common iliac artery. No hydronephrosis or nephrolithiasis in either kidney. Fluid-filled bladder without perivesical edema pattern or fluid collections. Multilevel thoracolumbar spondylosis. Superior endplate compression deformity representing 30% volume loss with sclerosis at T12. Likely old compression deformities at L1, L3 levels. Syndesmophyte formation throughout the lower thoracic spine. No gross malalignment in the axial skeleton. Degenerative changes in the coxofemoral joints. Osteopenia versus the process. Bony pelvis is intact. Coxofemoral joints are intact with normal alignment. CT/CT abdomen pelvis wo IV con IMPRESSION: Limited examination demonstrated no gross intra-abdominal organ injury. Acute to subacute superior endplate compression deformity at T12. Bilateral pleural effusions. Please refer to CT chest. Fleischner guidelines were followed. Electronically signed by: Jesus Clark MD 03/13/2025 01:10 PM EDT RP Chest CT FINDINGS: LUNGS: Great vessels are mildly prominent. Patchy groundglass densities with a mosaic pattern present throughout the lungs somewhat sparing the lung bases and periphery. There is peribronchial thickening, more pronounced in the perihilar regions. No pulmonary nodules or masses are identified. MEDIASTINUM: A few shotty lymph nodes are identified. The heart size is not enlarged. CORONARY ARTERY CALCIFICATION: Present PLEURA: Small to medium sized pleural effusions layer posteriorly in the chest bilaterally. AXILLA: No lymphadenopathy. UPPER ABDOMEN: Calcified stone is present in the gallbladder. OSSEOUS STRUCTURES: Moderate degenerative changes are present in the thoracic spine with bridging anterior osteophytes versus syndesmophytes in the lower thoracic spine. Severe degenerative changes present in the left shoulder and mild degenerative changes are present in the right. CT/CT chest wo IV con IMPRESSION: Patchy ground glass densities and bilateral layering pleural effusions are present. This could represent pulmonary edema, atypical/viral pneumonia, or small airways disease. Cholelithiasis. Fleischner guidelines were followed. Electronically signed by: Ruy Whittaker MD 03/13/2025 01:16 PM EDT Dictated By: Ruy Whittaker MD Signed By: <Electronically signed by Ruy Whittaker MD in OV> 03/13/25 1316 XR L shoulder FINDINGS: Three views of the left shoulder are submitted. The bones are osteopenic. There is no fracture or dislocation. There is moderate osteoarthritis of the glenohumeral and acromioclavicular joints with joint space narrowing and osteophyte formation. The soft tissues are unremarkable. XR/XR shoulder LT min 2V IMPRESSION: Osteopenia. Osteoarthritis as described. Electronically signed by: Isma Moore MD 03/13/2025 12:44 PM EDT RP Dictated By: Isma Moore MD Signed By: <Electronically signed by Isma Moore MD in OV> 03/13/25 1244 Independent Historian Clinical information obtained from an independent historian. History obtained from or confirmed by: Other ([id number] at bedside corroborating history) External Record Review External record reviewed: Inpatient record, Office record, Outpatient record and Prior outpatient labs Tests considered The following testing was considered but not selected: I considered CTA chest for PE workup however patient with creatinine of 3.0 had to do dry scan of chest instead. Chronic Conditions Patient?s care impacted by: Diabetes, Hypertension and Other (BPH, AFib on Eliquis) Critical Care Time Critical Care Time Total Critical Care Time: 63 Attestation: I personally provided 63 minutes of critical care time to this patient due to high risk of enemas or life-threatening deterioration. My care included frequent assessment, interpretation of diagnostic studies, direct management of the patient's acute condition, review of prior records, coordination with medical staff, and development in adjustment of treatment plan. Discharge Plan Discharge Clinical Impression: VERENA (acute kidney injury), Hyponatremia, Weakness Patient Disposition: Admitted As Inpatient Interventions: Admission Worksheet (ED) Last Done: 03/13/25 18:14 Discharge Date/Time: 03/13/25 19:30
--- NOTE | 2025-03-13 11:23 | PC.NURSE ---
79 M presents to ED with L shoulder pain and lower back pain from fall 1.5 weeks ago. Pt sts he tripped and fell, walks with a walker. Pt has had increasing falls recently and just got back from [facility] where he was hospitilized for swelling in his legs and fluid in his lungs. RR even and unlabored, denies sob or cp. Pt has some bilat extremitiy swelling but no pitting edema. Pt calm, cooperative. A+OX4. Concerns for him living at home alone.
[2025-03-13 11:32] LABS: MANUAL DIFF FLAG NO
[2025-03-13 11:35] LABS: Hematocrit 27.7 % (42.0-52.0); Hemoglobin 9.4 g/dl (14.0-18.0); Imm Gran Abs Auto 0.04 X10*3/uL (0.00-0.03); Imm Gran Pct Auto 0.5 % (0.0-0.4); Lymphocytes Absolute Auto 0.7 X10*3/uL (1.2-4.9); Mean Corpuscular HGB Conc 33.9 g/dl (31.0-36.0); Mean Corpuscular Hemoglobin 29.4 pg (27.0-33.0); Mean Corpuscular Volume 86.6 fL (80.0-98.0); NRBC Abs Auto 0.000 X10*3/uL (0.0-0.012); NRBC Pct Auto 0.0 /100WBC (0.0-0.2); Platelet Count 149 X10*3/uL (160-400); Red Blood Count 3.20 X10*6/uL (4.60-5.80); White Blood Count 7.6 X10*3/uL (4.8-10.8)
[2025-03-13] MEDS: Lactated Ringers 1,000 ML 500 ML IV (11:44)
[2025-03-13 11:48] LABS: INTERNATIONAL NORM RATIO 2.0 (0.9-1.1); Prothrombin Time 22.9 SEC (10.9-12.4)
[2025-03-13 11:51] LABS: Alanine Aminotransferase 8 U/L (0-40); Albumin Level 3.5 g/dL (3.5-5.0); Alkaline Phosphatase 96 U/L (39-117); Anion Gap 18 (12-20); Aspartate Amino Transferase 14 U/L (5-37); Blood Urea Nitrogen 75 mg/dL (9-16); Calcium 8.7 mg/dL (8.4-10.2); Carbon Dioxide 21 mmol/L (22-29); Chloride 99 mmol/L (96-108); Creatinine Clr Calc Pharmacy 22.0; Estimated Glomerular Filt Rate 20; Potassium 4.8 mmol/L (3.3-5.1); Sodium 133 mmol/L (135-145); Total Protein 6.0 g/dL (6.5-8.0)
[2025-03-13 11:53] LABS: B Type Natriuretic Peptide 96 pg/mL (<100)
[2025-03-13 11:59] LABS: Troponin-I High Sensitivity 7.6 ng/L (<3.5-35.0)
[2025-03-13 12:23] LABS: Venous Blood Gas Refer to POC result
[2025-03-13 12:23] LABS: VBG HCO3 22 mmol/L (22-26); VBG O2 % Saturation 73.0 %
[2025-03-13 13:09] LABS: COVID-19 Test Negative (Negative); IDNOW Serial# 6674DD1D
[2025-03-13 13:10] LABS: IDNOW Serial# 08D9AD1C; Influenza B2 Negative (Negative)
[2025-03-13 14:13] LABS: Reflex Lactate? Lactic Acid Added
[2025-03-13 15:13] LABS: ~Lactic Acid-LAB USE ONLY 2.2 mmol/L (0.5-2.0)
[2025-03-13 15:15] LABS: OBS Int Ctl Valid YES; OBS1 NEGATIVE (NEGATIVE)
[2025-03-13 15:53] LABS: Troponin-I High Sensitivity 5.8 ng/L (<3.5-35.0)
[2025-03-13 16:52] LABS: Reflex Lactate? 2 Y
[2025-03-13 17:51] LABS: ~Lactic Acid-LAB USE ONLY 1.5 mmol/L (0.5-2.0)
--- NOTE | 2025-03-13 18:29 | PM.IMHP ---
History of Present Illness Date of Service: 03/13/25 Chief Complaint: VERENA 79-year-old male with a past medical history of type 2 diabetes, BPH, hypertension, hyperlipidemia, AFib on Eliquis presented today due to weakness with left shoulder and lumbar back pain. Patient recently traveled to [place] to visit family. He experienced some bilateral leg swelling and shortness of breath and was taken to a local hospital. Patient was in hospital 36 days in [place] and was intubated twice. Returned back to [place] 03/09/2025 and fell getting out of bed due to leg weakness. Family was present in-house but no one witnessed fall. He was seen by PCP who recommended rehab however too weak to go home. At this point in time he will be admitted for treatment of the VERENA; records from [place] @ Dr. Lopez's office and can be obtained in a.m. 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 Surgical History Status post cardiac catheterization Hx of cardiac catheterization History of hydrocelectomy Hx of transurethral resection of prostate H/O colonoscopy Deviated septum History of left knee replacement Social History Household Members: None Housing: House Are you a primary manager critical care to a significant other at home: No Do you presently have visiting nurse or other home services: No Patient Tobacco Use Status: Never used Tobacco Smoked in Last 30 Days: No e-Cigarette/Vaping Use: Never Used Second Hand Smoke Exposure: Yes Use of substances other than those prescribed or required for medical reasons: No Advance Directives: Yes Advance Directives on File: Yes Advance Directives Date on File: 12/28/23 service: No Current occupational status: retired Cognitive needs: No Hearing needs: No Vision needs: Yes Meds Allergies Allergy/AdvReac Type Severity Reaction Status Date / Time cephalexin (Keflex) Allergy Intermediate hives Verified 03/13/25 10:24 levofloxacin Allergy Intermediate Hives Verified 03/13/25 10:24 cetirizine (From yrte) AdvReac Intermediate Fatigue Verified 03/13/25 10:24 Active Medications: Current Medications Acetaminophen (Acetaminophen 325 Mg Tablet) 650 mg PO Q6H PRN PRN Reason: Pain, Mild 1-3,fever,headache Calcium Carbonate (Calcium Carbonate 750 Mg Tab.Chew) 750 mg PO Q4H PRN PRN Reason: Heartburn Lactated Ringer's (Lr) 1,000 mls @ 100 mls/hr IVCONT .Q10H NANCY Magnesium Hydroxide (Milk Of Magnesia 30 Ml Oral.Susp) 30 ml PO DAILY PRN PRN Reason: Constipation Melatonin (Melatonin 3 Mg Tablet) 6 mg PO BEDTIME PRN PRN Reason: Insomnia Morphine Sulfate (Morphine Sulfate 4 Mg/Ml Cartridge) 4 mg IVPUSH Q4H PRN; Protocol PRN Reason: Pain, Severe (Pain Scale 7-10) Ondansetron HCl (Ondansetron Hcl 4 Mg/2 Ml Vial) 4 mg IVPUSH Q8H PRN PRN Reason: Nausea and Vomiting Oxycodone HCl (Oxycodone Hcl Immed Release 5 Mg Tablet) 5 mg PO Q6H PRN PRN Reason: Pain, Moderate(Pain Scale 4-6) Sodium Chloride (0.9 % Sodium Chloride Flush 3 Ml Syringe) 3 ml IVFLUSH QSHIFT [facility] Home Medications ?Medication ?Instructions ?Recorded ?Confirmed ?Last Taken ?Type alprazolam 0.5 mg tablet 0.5 mg PO BEDTIME PRN Anxiety 03/13/25 Unknown History aspirin 81 mg tablet 81 mg PO DAILY 03/13/25 Unknown History atorvastatin 40 mg tablet (Lipitor) 40 mg PO BEDTIME 03/13/25 Unknown History bumetanide 1 mg tablet 1 mg PO BID 03/13/25 Unknown History doxazosin 1 mg tablet (Cardura) 1 mg PO BEDTIME 03/13/25 Unknown History furosemide 40 mg tablet 40 mg PO DAILY 03/13/25 Unknown History glipizide 2.5 mg tablet, extended 2.5 mg PO QAM 03/13/25 Unknown History release 24 hr lidocaine 4 % topical patch 1 patch topical BID PRN 03/13/25 Unknown History lisinopril 20 mg tablet 20 mg PO BID 03/13/25 Unknown History metformin 1,000 mg tablet 1,000 mg PO BID 03/13/25 Unknown History metolazone 2.5 mg tablet 2.5 mg PO DAILY 03/13/25 Unknown History metoprolol tartrate 50 mg tablet 25 mg PO BID 03/13/25 Unknown History oxycodone 5 mg tablet 5 mg PO Q6H PRN 03/13/25 Unknown History potassium chloride 20 mEq 20 meq PO DAILY 03/13/25 Unknown History tablet,extended release(part/cryst) simvastatin 20 mg tablet 20 mg PO BEDTIME 03/13/25 Unknown History Physical Exam Vital Signs and Narrative: Vital Signs: Last Vital Signs Temp 97.6 F 03/13/25 10:58 Pulse 93 03/13/25 14:48 Resp 18 03/13/25 14:48 BP 118/49 L 03/13/25 14:48 Pulse Ox 98 03/13/25 14:48 O2 Del Method Room Air 03/13/25 14:48 BMI result Body Mass Index 30.8 Const: Other: Elderly frail gentleman resting quietly in stretcher no acute distress Resp: Other: Clear to auscultation bilaterally no rales rhonchi or wheezes Cardio: Other: Irregularly irregular; no S4; positive S1-S2; no S3 murmurs rubs or gallops GI: Other: Soft nontender nondistended quiet bowel sounds Extrem: Other: Mild edema bilaterally; changes consistent with chronic venous stasis disease Results Labs 03/13/25 11:27 03/13/25 11:27 Labs: Laboratory Results - last 24 hr 03/13/25 03/13/25 03/13/25 11: 12:09 12:17 MCV 86.6 MCH 29.4 MCHC 33.9 RDW 22.8 H Plt Count 149 L MPV TNP Immature Gran % (Auto) 0.5 H Neut % (Auto) 79.4 H Lymph % (Auto) 9.7 L [place] % (Auto) 9.2 Eos % (Auto) 0.8 Baso % (Auto) 0.4 Lymph # (Auto) 0.7 L [place] # (Auto) 0.7 Eos # (Auto) 0.1 Baso # (Auto) 0.0 Abs Immat Gran (auto) 0.04 H Absolute Neuts (auto) 6.0 Absolute Nucleated RBC 0.000 Nucleated RBC % (auto) 0.0 PT 22.9 H INR 2.0 H VBG pH 7.43 VBG pCO2 33 VBG pO2 45 VBG HCO3 22 VBG O2 Saturation 73.0 VBG Base Excess -1.0 Anion Gap 18 Estim Creat Clear Calc 22.0 Estimated GFR 20 Random Glucose 184 H Lactic Acid 2.1 H* Lactic Acid F/U @ 2Hr Lactic Acid F/U @ 4Hr Calcium 8.7 Total Bilirubin 0.7 AST 14 ALT 8 Alkaline Phosphatase 96 B-Natriuretic Peptide 96 Total Protein 6.0 L Albumin 3.5 Stool Occult Blood COVID-19 (BERNARDO) COVID-TabSys Com Influenza Type A (DORIS) Influenza Type B (DORIS) Influenza A & B Note 03/13/25 03/13/25 03/13/25 12:47 14:48 15:04 MCV MCH MCHC RDW Plt Count MPV Immature Gran % (Auto) Neut % (Auto) Lymph % (Auto) [place] % (Auto) Eos % (Auto) Baso % (Auto) Lymph # (Auto) [place] # (Auto) Eos # (Auto) Baso # (Auto) Abs Immat Gran (auto) Absolute Neuts (auto) Absolute Nucleated RBC Nucleated RBC % (auto) PT INR VBG pH VBG pCO2 VBG pO2 VBG HCO3 VBG O2 Saturation VBG Base Excess Anion Gap Estim Creat Clear Calc Estimated GFR Random Glucose Lactic Acid Lactic Acid F/U @ 2Hr 2.2 H* Lactic Acid F/U @ 4Hr Calcium Total Bilirubin AST ALT Alkaline Phosphatase B-Natriuretic Peptide Total Protein Albumin Stool Occult Blood NEGATIVE COVID-19 (BERNARDO) Negative COVID-TabSys Com See Note Influenza Type A (DORIS) Negative Influenza Type B (DORIS) Negative Influenza A & B Note See Note 03/13/25 17:29 MCV MCH MCHC RDW Plt Count MPV Immature Gran % (Auto) Neut % (Auto) Lymph % (Auto) [place] % (Auto) Eos % (Auto) Baso % (Auto) Lymph # (Auto) [place] # (Auto) Eos # (Auto) Baso # (Auto) Abs Immat Gran (auto) Absolute Neuts (auto) Absolute Nucleated RBC Nucleated RBC % (auto) PT INR VBG pH VBG pCO2 VBG pO2 VBG HCO3 VBG O2 Saturation VBG Base Excess Anion Gap Estim Creat Clear Calc Estimated GFR Random Glucose Lactic Acid Lactic Acid F/U @ 2Hr Lactic Acid F/U @ 4Hr 1.5 Calcium Total Bilirubin AST ALT Alkaline Phosphatase B-Natriuretic Peptide Total Protein Albumin Stool Occult Blood COVID-19 (BERNARDO) COVID-19 Clin Com Influenza Type A (DORIS) Influenza Type B (DORIS) Influenza A & B Note Imaging Radiologist's Impressions: Impressions Cervical Spine CT 03/13/25 10:38 IMPRESSION: No acute fracture. Multilevel degenerative disc disease and facet osteoarthritis are most advanced at C3-4 and C4-5. Nonspecific groundglass densities are present in the lung apexes, correlate for signs symptoms of an atypical pneumonia. Electronically signed by: Ruy Whittaker MD 03/13/2025 11:15 AM EDT RP Head CT 03/13/25 10:38 IMPRESSION: No acute intracranial abnormality. Moderate white matter changes likely related to small vessel angiopathy. Electronically signed by: Ruy Whittaker MD 03/13/2025 11:10 AM EDT RP Chest X-Ray 03/13/25 12:30 IMPRESSION: No acute cardiopulmonary abnormality. Electronically signed by: Isma Moore MD 03/13/2025 12:46 PM EDT RP Shoulder X-Ray 03/13/25 12:33 IMPRESSION: Osteopenia. Osteoarthritis as described. Electronically signed by: Isma Moore MD 03/13/2025 12:44 PM EDT RP Abdomen/Pelvis CT 03/13/25 12:34 IMPRESSION: Limited examination demonstrated no gross intra-abdominal organ injury. Acute to subacute superior endplate compression deformity at T12. Bilateral pleural effusions. Please refer to CT chest. Fleischner guidelines were followed. Electronically signed by: Jesus Clark MD 03/13/2025 01:10 PM EDT RP Chest CT 03/13/25 12:34 IMPRESSION: Patchy ground glass densities and bilateral layering pleural effusions are present. This could represent pulmonary edema, atypical/viral pneumonia, or small airways disease. Cholelithiasis. Fleischner guidelines were followed. Electronically signed by: Ruy Whittaker MD 03/13/2025 01:16 PM EDT RP Assessment and Plan (1) VERENA (acute kidney injury): Status: Acute (2) Persistent atrial fibrillation: Status: Acute (3) Type 2 diabetes mellitus without complication, with no history of insulin use: Status: Acute (4) Congestive heart failure: Status: Acute Plan 79-year-old male with medical history of type 2 diabetes, hypertension, hyperlipidemia, AFib on Eliquis presents after protracted hospitalization in [place] for what is described as likely an episode of congestive heart failure. Details of hospitalization are not available at the time of this dictation. Workup initially consistent with acute kidney injury. 1. Acute kidney injury (03/13/2025 3.08; 08/15/24 0.95) -gentle volume repletion overnight -renal ultrasound in a.m. -consult nephrology -follow renals/divalent 2. Persistent atrial fibrillation -acceptable rate control at present -Eliquis as ordered -monitor on telemetry 3. Type 2 diabetes (patient states no insulin. .. Med rec pending) -lispro correctional scale -adjust as indicated 4. History of CHF (unknown details at this time) -2D echo in a.m. -continue outpatient therapies -cardiology consult Full code Eliquis Patient will require at least 2 midnights of inpatient stay going forward to treat acute kidney injury as well as specialty consultation. This can not be achieved a lesser acute setting Quality Stroke Does the patient have a stroke diagnosis?: No VTE Prior VTE?: No VTE Risk Level:: Medical - moderate - high VTE Device Contraindication: Treatment Not Indicated VTE Drug Contraindication: N/A - Med Ordered
[2025-03-13] MEDS: Lactated Ringers 1,000 ML 100 ML IVCONT (20:52)
[2025-03-13] MEDS: oxyCODONE HCl Immed Release 5 MG TABLET PO (21:09)
[2025-03-13 21:18] LABS: Glucose, Whole Blood 192 mg/dL (60-115)
--- NOTE | 2025-03-13 21:20 | PHA.MEDREC ---
Addendum entered by Tripp Barrientos PharmD 03/13/25 21:37: reviewed Original Note: Pharmacy Consult ? Medication Reconciliation Pharmacy has completed the medication reconciliation. Spoke to family at bedside and they all of patient Rx bottles with them. Patient no longer taking Furosemide 40 mg, Glipizide 2.5 mg, Lidocain 4% patch, and Sivastatin 20 mg. Patient had all his morning medications today.
[2025-03-14 03:07] LABS: Appearance Urine Clear; Glucose Urine UA Negative (Negative); PH 5.5 (5.0-9.0); Specific Gravity - Urine 1.010 (1.005-1.025)
[2025-03-14 03:34] VITALS: BP 125/58; PULSE 73; RESP 18; TEMP 36.3; O2SAT 95
[2025-03-14 06:13] LABS: MANUAL DIFF FLAG NO
[2025-03-14 06:21] LABS: Hematocrit 27.8 % (42.0-52.0); Hemoglobin 9.4 g/dl (14.0-18.0); Imm Gran Abs Auto 0.02 X10*3/uL (0.00-0.03); Imm Gran Pct Auto 0.4 % (0.0-0.4); Lymphocytes Absolute Auto 1.0 X10*3/uL (1.2-4.9); Mean Corpuscular HGB Conc 33.8 g/dl (31.0-36.0); Mean Corpuscular Hemoglobin 29.3 pg (27.0-33.0); Mean Corpuscular Volume 86.6 fL (80.0-98.0); NRBC Abs Auto 0.000 X10*3/uL (0.0-0.012); NRBC Pct Auto 0.0 /100WBC (0.0-0.2); Platelet Count 130 X10*3/uL (160-400); Red Blood Count 3.21 X10*6/uL (4.60-5.80); White Blood Count 4.8 X10*3/uL (4.8-10.8)
[2025-03-14] MEDS: Lactated Ringers 1,000 ML 100 ML IVCONT (06:22)
[2025-03-14 06:46] LABS: Alanine Aminotransferase < 6 U/L (0-40); Albumin Level 3.1 g/dL (3.5-5.0); Alkaline Phosphatase 82 U/L (39-117); Anion Gap 15 (12-20); Aspartate Amino Transferase 12 U/L (5-37); Blood Urea Nitrogen 72 mg/dL (9-16); Calcium 8.5 mg/dL (8.4-10.2); Carbon Dioxide 25 mmol/L (22-29); Chloride 103 mmol/L (96-108); Creatinine Clr Calc Pharmacy 24.5; Estimated Glomerular Filt Rate 22; Potassium 4.5 mmol/L (3.3-5.1); Sodium 138 mmol/L (135-145); Total Protein 5.2 g/dL (6.5-8.0)
--- NOTE | 2025-03-14 07:00 | CA_ITS ---
Transthoracic Echocardiogram Patient (Last, First, Middle): Alireza Gabriel M Gender: Male Date of : 1945 Age: 79 Procedure Date: 03/14/2025 Procedure Type: Transthoracic Echocardiogram Location: S3E Height: 177. cm Weight: 100.7 kg BSA: 2.17 m2 Heart Rate: 87 bpm BP: 125 / 58 mmHg Animal Nurse: MELISSA Referring MD: Rodo South DO Counter Help: Aquilino Ventura MD Symptoms: Afib Study Quality: Adequate w contrast ECG Rhythm: Atrial Fibrillation Conclusions: - 1. [id number] LV systolic dysfunction with LVEF of 40-45% with moderate increase in left ventricular wall thickness 2. Severely dilated left atrium 3. Calcific aortic valve changes noted with overall normal cardiac valvular Dopplers 4. Normal RV systolic pressure with mildly elevated right atrial pressures 5. Mildly dilated ascending aorta at 3.7 cm 6. No gross pericardial effusion Findings Procedure Information Contrast agent, definity, is being given per protocol without apparent complications. Left Ventricle Normal left ventricular cavity size. There is moderately increased left ventricular wall thickness. The left ventricular systolic function is mild to moderately decreased. The visually estimated ejection fraction is between 40-45%. Diastolic function is indeterminate on the basis of available data. Right Ventricle Mildly increased right ventricular cavity size. There is moderately decreased right ventricular systolic function. Atria The left atrium is severely dilated. There is lipomatous hypertrophy of the interatrial septum. There is no evidence of interatrial shunt. The right atrium is mildly dilated. Aortic Valve There is mild calcification of the aortic valve. There is moderate thickening of the aortic valve. There is no aortic valve stenosis. There is no aortic valve regurgitation. Mitral Valve There is mild anterior and posterior mitral leaflet thickening. There is trace mitral valve regurgitation. There is no mitral valve stenosis. Pulmonic Valve The pulmonic valve is likely normal. Tricuspid Valve Normal tricuspid valve structure. There is mild tricuspid valve regurgitation. The right ventricular systolic pressure is normal. The right ventricular systolic pressure is 29 mmHg. Mildly elevated right atrial pressure. There is no evidence of pulmonary hypertension. Great Vessels The pulmonary artery was not well visualized. There is mild dilatation of the ascending aorta measuring 3.70 cm. Small plaque is seen in the sino tubular ridge. Venous The inferior vena cava is mildly dilated and collapses greater than 50% with inspiration. Pericardium/Pleural There is no evidence of pericardial effusion. Prior Study Comparison Changes noted compared to prior study dated: 03/19/2024. LV ejection fraction has reduced Measurements 2D Linear Measurements IVSd: 1.38 0.6-0.9/0.6-1.0 cm LVIDd: 5.34 3.9-5.3/4.2-5.9 cm LVIDd Index: 2.46 2.4-3.2/2.2-3.1 cm/m2 LVIDs: 3.85 2.0-3.6 cm LVPWd: 1.43 0.7-1.1 cm LA Diam: 4.90 2.7-3.8/3.0-4.0 cm LAIDs Index: 2.26 1.5-2.3 cm/m2 LV Mass: 404.63 67-162/88-224 g LV Mass Index: 186.47 43-95/49-115 g/m2 LVOT Diam: 2.40 3.0+(-)1.3 cm 2D Systolic Function EF 4C: 35.20 >55% EF 2C: 53.70 >55% EF BiP: 42.20 >55% Mitral Valve MV Pk E: 0.98 MV Decel Time: 151.00 E'Lateral: 10.80 E'Medial: 9.89 E/E' Med: 9.90 E/E' Lat: 9.10 PHT: 44.00 MVA PHT: 5.00 Decel Evangeline: 7.08 Aortic Valve AoV Pk Lance: 1.09 AoV Mn Lance: 0.83 AoV VTI: 0.22 AoV Pk Grad: 5.00 Aov Mn Grad: 3.00 ASAH Cont.VTI: 2.88 LVOT LVOT Pk Lance: 0.75 LVOT Mn Lance: 0.55 LVOT VTI: 0.14 LVOT Pk Grad: 2.00 LVOT Mn Grad: 1.00 LVOT Diam: 2.40 LVOT Area: 4.52 Diastolic Function MV Pk E: 0.98 E'Medial: 9.89 E/E' Med: 9.90 E' Laterial: 10.80 E/E' Lat: 9.10 Right Ventricle TAPSE (mm): 12.40 TVS' Lance: 8.59 Tricuspid Valve TR Pk Lance: 2.30 TR Pk Grad: 21.00 RA Press: 8.00 RVSP: 29.00 Great Vessels Aorta Sinus of Valsalva: 3.80 2.0-3.5 cm Ao Asc: 3.70 2.1-3.4 cm Pulmonary Valve PV Pk Lance: 0.91 Peak PV Grad: 3.00 Updated in Other Vendor System with Status of Final Aquilino Ventura MD electronically signed on 03/14/2025 1:38:38 PM with status of Final
[2025-03-14 07:25] LABS: Glucose, Whole Blood 105 mg/dL (60-115)
[2025-03-14] MEDS: oxyCODONE HCl Immed Release 5 MG TABLET PO (07:54)
[2025-03-14 08:00] VITALS: BP 110/56; PULSE 85; RESP 18; TEMP 36.1; O2SAT 98
[2025-03-14 08:49] LABS: B Type Natriuretic Peptide 149 pg/mL (<100)
--- NOTE | 2025-03-14 11:01 | MHC.CM.PN ---
pt lives alone is indepemndent had no previous services has own transport home dc plan tbd ?str
[2025-03-14] MEDS: 0.9 % Sodium Chloride Flush 3 ML SYRINGE IVFLUSH ×3 (11:19→20:05)
[2025-03-14] MEDS: Lidocaine 4 % Patch ADH..PATCH 1 PATCH TRANSDERMA (11:20)
[2025-03-14 11:31] LABS: Glucose, Whole Blood 166 mg/dL (60-115)
--- NOTE | 2025-03-14 11:48 | P.CONNP_ITS ---
History of Present Illness Reason for Consult Consult date: 03/14/25 Chief Complaint Chief complaint: Acute Kidney Injury History of Present Illness Narrative: 79 y/o male with DMII, BPH, HTN, HLD, afib. 03/13 presented with weakness of left shoulder, lumbar pain after fall at home. Of note, patient had a recent admission last month to a hospital in [place] after experiencing LE swelling and shortness of breath while visiting his son there. He was in the hospital in [place] for 37 days per pt. He recently returned to [place] on 03/09 and had leg weakness and fell out of bed. Nephrology consulted for VERENA. Most recent baseline labs on file creatinine 0.95 in August 2024. 03/13/25 creatinine 3.08 03/14/25 creatinine 2.81 UA negative BP 92/53 on arrival receiving LR at 100ml/hr CT abd/pelv without acute abnormalities. CT chest shows bilateral pleural effusions and possible pulmonary edema. patient reports he is feeling ok while lying in bed. Per his daughter, was on diuretics as outpatient, including bumex. Review of Systems Constitutional: Reports fatigue and Reports weakness Cardiovascular: Denies chest pain, Denies leg edema, Denies lightheadedness and Denies dyspnea Respiratory: Denies dyspnea Gastrointestinal: Denies abdominal pain, Denies diarrhea and Denies vomiting Genitourinary: Denies hematuria, Denies oliguria, Denies dysuria and Denies flank pain Musculoskeletal: Reports back pain and Denies muscle cramps Skin/Breast: Denies rash Reports weakness Endocrine: Reports fatigue PMFSH Past Medical History Medical History Hypertensive retinopathy Posterior vitreous detachment, left eye Epiphora due to excess lacrimation of right side Senile ectropion of right lower eyelid BPH (benign prostatic hyperplasia) Type 2 diabetes mellitus without complication, with no history of insulin use Normocytic anemia Thrombocytopenia COVID-19 vaccine series completed 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 Surgical History Surgical History Status post cardiac catheterization Hx of cardiac catheterization History of hydrocelectomy Hx of transurethral resection of prostate H/O colonoscopy Deviated septum History of left knee replacement Social History Social History Household Members: None Housing: House Are you a primary senior caregiver to a significant other at home: No Do you presently have visiting nurse or other home services: No Patient Tobacco Use Status: Never used Tobacco e-Cigarette/Vaping Use: Never Used Second Hand Smoke Exposure: Yes Advance Directives Date on File: 12/28/23 service: No Current occupational status: retired Cognitive needs: No Hearing needs: No Vision needs: Yes Meds Allergies Allergy/AdvReac Type Severity Reaction Status Date / Time cephalexin (Keflex) Allergy Intermediate hives Verified 03/13/25 10:24 levofloxacin Allergy Intermediate Hives Verified 03/13/25 10:24 cetirizine (From Zyrtec) AdvReac Intermediate Fatigue Verified 03/13/25 10:24 Active Medications: Current Medications Acetaminophen (Acetaminophen 325 Mg Tablet) 650 mg PO Q6H PRN PRN Reason: Pain, Mild 1-3,fever,headache Alprazolam (Alprazolam 0.5 Mg Tablet) 0.5 mg PO Q8H PRN PRN Reason: Anxiety Apixaban (Apixaban 2.5 Mg Tablet) 2.5 mg PO BID [facility] Last Admin: 03/14/25 11:18 Dose: 2.5 mg Aspirin (Aspirin 81 Mg Tab.Chew) 81 mg PO DAILY NANCY Last Admin: 03/14/25 11:18 Dose: 81 mg Atorvastatin Calcium (Atorvastatin Calcium 40 Mg Tablet) 40 mg PO BEDTIME NANCY Calcium Carbonate (Calcium Carbonate 750 Mg Tab.Chew) 750 mg PO Q4H PRN PRN Reason: Heartburn Dextrose (Dextrose 50 % 25 Gm/50 Ml Syringe) 25 gm IVPUSH Q15M PRN; Protocol PRN Reason: per Hypoglycemia Standing Ord. Doxazosin Mesylate (Doxazosin Mesylate 1 Mg Tablet) 1 mg PO BEDTIME NANCY; Protocol Glucose (Glucose Gel 15 Gm Gel..Gram.) 15 gm PO Q15M PRN; Protocol PRN Reason: per Hypoglycemia Standing Ord. Lactated Ringer's (Lr) 1,000 mls @ 100 mls/hr IVCONT .Q10H [facility] Last Admin: 03/14/25 06:22 Dose: 100 mls/hr Insulin Human Lispro (Insulin Lispro 100 Unit/Ml 3 Ml Vial) 0 unit SUBCUT QIDACHS [facility]; Protocol Last Admin: 03/14/25 07:49 Dose: Not Given Lidocaine (Lidocaine 4 % Patch Adh..Patch) 1 patch TRANSDERMA DAILY [facility]; Protocol Last Admin: 03/14/25 11:20 Dose: 1 patch Magnesium Hydroxide (Milk Of Magnesia 30 Ml Oral.Susp) 30 ml PO DAILY PRN PRN Reason: Constipation Melatonin (Melatonin 3 Mg Tablet) 6 mg PO BEDTIME PRN PRN Reason: Insomnia Metoprolol Tartrate (Metoprolol Tartrate 25 Mg Tablet) 25 mg PO BID [facility]; Protocol Last Admin: 03/14/25 11:19 Dose: 25 mg Morphine Sulfate (Morphine Sulfate 4 Mg/Ml Cartridge) 4 mg IVPUSH Q4H PRN; Protocol PRN Reason: Pain, Severe (Pain Scale 7-10) Last Admin: 03/14/25 11:30 Dose: 4 mg Ondansetron HCl (Ondansetron Hcl 4 Mg/2 Ml Vial) 4 mg IVPUSH Q8H PRN PRN Reason: Nausea and Vomiting Oxycodone HCl (Oxycodone Hcl Immed Release 5 Mg Tablet) 5 mg PO Q6H PRN PRN Reason: Pain moderate Sodium Chloride (0.9 % Sodium Chloride Flush 3 Ml Syringe) 3 ml IVFLUSH QSHIFT [facility] Last Admin: 03/14/25 11:19 Dose: 3 ml Tamsulosin HCl (Tamsulosin Hcl 0.4 Mg Capsule) 0.4 mg PO DAILY [facility] Last Admin: 03/14/25 11:18 Dose: 0.4 mg Home Medications ?Medication ?Instructions ?Recorded ?Confirmed ?Last Taken ?Type acetaminophen 500 mg tablet 500 mg PO Q6H PRN Fever Or Pain 03/13/25 03/13/25 Unknown History alprazolam 0.5 mg tablet 0.5 mg PO Q8H PRN anxiety 03/13/25 Unknown History aspirin 81 mg tablet 81 mg PO DAILY 03/13/2503/0303/13/25 History atorvastatin 40 mg tablet (Lipitor) 40 mg PO BEDTIME 0 03/13/25 03/13/25 03/12/25 History bumetanide 1 mg tablet 1 mg PO BID 03/13/25 5 03/13/25 History doxazosin 1 mg tablet (Cardura) 1 mg PO BEDTIME 03/13/25 03/12/25 History lisinopril 20 mg tablet 20 mg PO BID 03/13/2503/13/25 History metformin 1,000 mg tablet 1,000 mg PO BID 03/13/2505/2703/13/25 History metolazone 2.5 mg tablet 2.5 mg PO DAILY 03/13/2505/2703/13/25 History metoprolol tartrate 50 mg tablet 25 mg PO BID 03/13/25 03/13/25 03/13/25 History oxycodone 5 mg tablet 5 mg PO Q6H PRN Pain 5 03/13/25 Unknown History potassium chloride 20 mEq 20 meq PO DAILY 03/13/2505/2703/13/25 History tablet,extended release(part/cryst) Physical Exam Vital Signs: Last Vital Signs Temp 97.0 F 03/14/25 08:00 Pulse 85 03/14/25 08:00 Resp 18 03/14/25 08:00 BP 110/56 L 03/14/25 08:00 Pulse Ox 98 03/14/25 08:00 O2 Del Method Room Air 03/14/25 08:00 BMI result Body Mass Index 31.9 Const General: no acute distress, alert and awake Resp Effort & Inspection: normal respiratory effort and able to speak in complete sentences Auscultation: clear to auscultation bilaterally Cardio Rate: regular rate Rhythm: regular rhythm Heart sounds: S1 normal heart sound present and S2 normal heart sound present GI Palpation (GI): Soft to palpation and nontender Skin Rashes: no rashes Extrem General: No edema Results Lab Results 03/14/25 05:31 03/14/25 05:31 Lab results: Chemistry 03/13/25 03/14/25 11:27 05:31 Sodium 133 L 138 Potassium 4.8 4.5 Carbon Dioxide 21 L 25 BUN 75 H 72 H Creatinine 3.08 H 2.81 H Calcium 8.7 8.5 Hematology 03/13/25 03/14/25 11:27 05:31 WBC 7.6 4.8 Hgb 9.4 L 9.4 L Plt Count 149 L 130 L Urinalysis 03/14/25 01:06 Urine Color Yellow Urine Appearance Clear Urine pH 5.5 Ur Specific [place] 1.010 Urine Protein Negative Urine Glucose (UA) Negative Urine Ketones Negative Urine Blood Negative Urine Nitrite Negative Ur Leukocyte Esterase Negative Urine Studies 03/14/25 Unknown Urine Creatinine 58.87 Assessment and Plan (1) VERENA (acute kidney injury): Status: Acute Plan VERENA likely cardiorenal syndrome vs residual ATN from previous hospitalization (unclear if creatinime had normalized upon discharge from previous hospitalization). creatinine is trending down after receiving some IVF on admission- echocardiogram pending UA is normal, CT without obstruction/stones per Dr Mcclendon, patient appears euvolemic per bedside echo recommend avoiding nephrotoxins daily electrolyte and renal function studies close I&O monitoring low sodium diet, fluid restriction 1.5L/24 hours continue supportive care Discussed with Dr Mcclendon Procedures Date of Service Date of Service: 03/14/25
--- NOTE | 2025-03-14 11:52 | P.PNIM_ITS ---
Subjective Subjective Date of Service: 03/14/25 Interval History: c/o back pain and L shoulder pain no dyspnea SCr slightly improved Review of Systems Review of Systems: Yes all other systems are reviewed and are negative Physical Exam 2 Vital Signs: Vital Signs: Last Vital Signs Temp 97.0 F 03/14/25 08:00 Pulse 85 03/14/25 08:00 Resp 18 03/14/25 08:00 BP 110/56 L 03/14/25 08:00 Pulse Ox 98 03/14/25 08:00 O2 Del Method Room Air 03/14/25 08:00 BMI result Body Mass Index 31.9 Gen: in no acute distress HEENT: sclera anicteric, moist mucus membranes Neck: supple Lungs: clear to auscultation bilaterally Heart: irregular, no murmurs Abd: soft, non-tender, non-distended Ext: 1+ bilateral leg edema Skin: warm/well-perfused Neuro: alert and oriented x3, no focal findings Psych: appropriate affect Objective Data Active Medications Acetaminophen (Acetaminophen 325 Mg Tablet) 650 mg PO Q6H PRN PRN Reason: Pain, Mild 1-3,fever,headache Alprazolam (Alprazolam 0.5 Mg Tablet) 0.5 mg PO Q8H PRN PRN Reason: Anxiety Apixaban (Apixaban 2.5 Mg Tablet) 2.5 mg PO BID [facility] Last Admin: 03/14/25 11:18 Dose: 2.5 mg Documented By: DALI Aspirin (Aspirin 81 Mg Tab.Chew) 81 mg PO DAILY [facility] [place] Last Admin: 03/14/25 11:18 Dose: 81 mg Documented By: DALI Atorvastatin Calcium (Atorvastatin Calcium 40 Mg Tablet) 40 mg PO BEDTIME [facility] [place] Calcium Carbonate (Calcium Carbonate 750 Mg Tab.Chew) 750 mg PO Q4H PRN PRN Reason: Heartburn Dextrose (Dextrose 50 % 25 Gm/50 Ml Syringe) 25 gm IVPUSH Q15M PRN; Protocol PRN Reason: per Hypoglycemia Standing Ord. Doxazosin Mesylate (Doxazosin Mesylate 1 Mg Tablet) 1 mg PO BEDTIME [facility]; Protocol Glucose (Glucose Gel 15 Gm Gel..Gram.) 15 gm PO Q15M PRN; Protocol PRN Reason: per Hypoglycemia Standing Ord. Lactated Ringer's (Lr) 1,000 mls @ 100 mls/hr IVCONT .Q10H [facility] Last Admin: 03/14/25 06:22 Dose: 100 mls/hr Documented By: ALETHEA Insulin Human Lispro (Insulin Lispro 100 Unit/Ml 3 Ml Vial) 0 unit SUBCUT QIDACHS [facility]; Protocol Last Admin: 03/14/25 11:48 Dose: 2 unit Documented By: BOZENA Lidocaine (Lidocaine 4 % Patch Adh..Patch) 1 patch TRANSDERMA DAILY [facility]; Protocol Last Admin: 03/14/25 11:20 Dose: 1 patch Documented By: DALI Magnesium Hydroxide (Milk Of Magnesia 30 Ml Oral.Susp) 30 ml PO DAILY PRN PRN Reason: Constipation Melatonin (Melatonin 3 Mg Tablet) 6 mg PO BEDTIME PRN PRN Reason: Insomnia Metoprolol Tartrate (Metoprolol Tartrate 25 Mg Tablet) 25 mg PO BID [facility] [place]; Protocol Last Admin: 03/14/25 11:19 Dose: 25 mg Documented By: DALI Morphine Sulfate (Morphine Sulfate 4 Mg/Ml Cartridge) 4 mg IVPUSH Q4H PRN; Protocol PRN Reason: Pain, Severe (Pain Scale 7-10) Last Admin: 03/14/25 11:30 Dose: 4 mg Documented By: DALI Ondansetron HCl (Ondansetron Hcl 4 Mg/2 Ml Vial) 4 mg IVPUSH Q8H PRN PRN Reason: Nausea and Vomiting Oxycodone HCl (Oxycodone Hcl Immed Release 5 Mg Tablet) 5 mg PO Q6H PRN PRN Reason: Pain moderate Sodium Chloride (0.9 % Sodium Chloride Flush 3 Ml Syringe) 3 ml IVFLUSH QSHIFT [facility] [place] Last Admin: 03/14/25 11:19 Dose: 3 ml Documented By: DALI Tamsulosin HCl (Tamsulosin Hcl 0.4 Mg Capsule) 0.4 mg PO DAILY [facility] [place] Last Admin: 03/14/25 11:18 Dose: 0.4 mg Documented By: DALI Labs 03/14/25 05:31 03/14/25 05:31 Labs: Laboratory Results - last 24 hr 03/13/25 03/13/25 03/13/25 11:27 12:09 12:17 MCV MCH MCHC RDW Plt Count MPV Immature Gran % (Auto) Neut % (Auto) Lymph % (Auto) [place] % (Auto) Eos % (Auto) Baso % (Auto) Lymph # (Auto) [place] # (Auto) Eos # (Auto) Baso # (Auto) Abs Immat Gran (auto) Absolute Neuts (auto) Absolute Nucleated RBC Nucleated RBC % (auto) VBG pH 7.43 VBG pCO2 33 VBG pO2 45 VBG HCO3 22 VBG O2 Saturation 73.0 VBG Base Excess -1.0 Anion Gap Estim Creat Clear Calc Estimated GFR POC Glucose Random Glucose Lactic Acid 2.1 H* Lactic Acid F/U @ 2Hr Lactic Acid F/U @ 4Hr Calcium Total Bilirubin AST ALT Alkaline Phosphatase B-Natriuretic Peptide 96 Total Protein Albumin Urine Color Urine Appearance Urine pH Ur Specific [place] Urine Protein Urine Glucose (UA) Urine Ketones Urine Blood Urine Nitrite Ur Leukocyte Esterase Ur Random Sodium Urine Creatinine Stool Occult Blood COVID-19 ([facility]NARDO) COVID-19 Clin Com Influenza Type A (DORIS) Influenza Type B (DORIS) Influenza A & B Note 03/13/25 03/13/25 03/13/25 12:47 14:48 15:04 MCV MCH MCHC RDW Plt Count MPV Immature Gran % (Auto) Neut % (Auto) Lymph % (Auto) [place] % (Auto) Eos % (Auto) Baso % (Auto) Lymph # (Auto) [place] # (Auto) Eos # (Auto) Baso # (Auto) Abs Immat Gran (auto) Absolute Neuts (auto) Absolute Nucleated RBC Nucleated RBC % (auto) VBG pH VBG pCO2 VBG pO2 VBG HCO3 VBG O2 Saturation VBG Base Excess Anion Gap Estim Creat Clear Calc Estimated GFR POC Glucose Random Glucose Lactic Acid Lactic Acid F/U @ 2Hr 2.2 H* Lactic Acid F/U @ 4Hr Calcium Total Bilirubin AST ALT Alkaline Phosphatase B-Natriuretic Peptide Total Protein Albumin Urine Color Urine Appearance Urine pH Ur Specific [place] Urine Protein Urine Glucose (UA) Urine Ketones Urine Blood Urine Nitrite Ur Leukocyte Esterase Ur Random Sodium Urine Creatinine Stool Occult Blood NEGATIVE COVID-19 (BERNARDO) Negative COVID-19 Clin Com See Note Influenza Type A (DORIS) Negative Influenza Type B (DORIS) Negative Influenza A & B Note See Note 03/13/25 03/13/25 03/14/25 17:29 21:07 01:06 MCV MCH MCHC RDW Plt Count MPV Immature Gran % (Auto) Neut % (Auto) Lymph % (Auto) [place] % (Auto) Eos % (Auto) Baso % (Auto) Lymph # (Auto) [place] # (Auto) Eos # (Auto) Baso # (Auto) Abs Immat Gran (auto) Absolute Neuts (auto) Absolute Nucleated RBC Nucleated RBC % (auto) VBG pH VBG pCO2 VBG pO2 VBG HCO3 VBG O2 Saturation VBG Base Excess Anion Gap Estim Creat Clear Calc Estimated GFR POC Glucose 192 H Random Glucose Lactic Acid Lactic Acid F/U @ 2Hr Lactic Acid F/U @ 4Hr 1.5 Calcium Total Bilirubin AST ALT Alkaline Phosphatase B-Natriuretic Peptide Total Protein Albumin Urine Color Yellow Urine Appearance Clear Urine pH 5.5 Ur Specific [place] 1.010 Urine Protein Negative Urine Glucose (UA) Negative Urine Ketones Negative Urine Blood Negative Urine Nitrite Negative Ur Leukocyte Esterase Negative Ur Random Sodium Urine Creatinine Stool Occult Blood COVID-19 ([facility]NARDO) COVID-19 Clin Com Influenza Type A (DORIS) Influenza Type B (DORIS) Influenza A & B Note 03/14/25 03/14/25 03/14/25 05:31 07:18 11:21 MCV 86.6 MCH 29.3 MCHC 33.8 RDW 22.2 H Plt Count 130 L MPV Not Reportable Immature Gran % (Auto) 0.4 Neut % (Auto) 66.0 Lymph % (Auto) 21.3 [place] % (Auto) 9.0 Eos % (Auto) 2.7 Baso % (Auto) 0.6 Lymph # (Auto) 1.0 L [place] # (Auto) 0.4 Eos # (Auto) 0.1 Baso # (Auto) 0.0 Abs Immat Gran (auto) 0.02 Absolute Neuts (auto) 3.2 Absolute Nucleated RBC 0.000 Nucleated RBC % (auto) 0.0 VBG pH VBG pCO2 VBG pO2 VBG HCO3 VBG O2 Saturation VBG Base Excess Anion Gap 15 Estim Creat Clear Calc 24.5 Estimated GFR 22 POC Glucose 105 166 H Random Glucose 107 Lactic Acid Lactic Acid F/U @ 2Hr Lactic Acid F/U @ 4Hr Calcium 8.5 Total Bilirubin 0.7 AST 12 ALT < 6 Alkaline Phosphatase 82 B-Natriuretic Peptide 149 H Total Protein 5.2 L Albumin 3.1 L Urine Color Urine Appearance Urine pH Ur Specific [place] Urine Protein Urine Glucose (UA) Urine Ketones Urine Blood Urine Nitrite Ur Leukocyte Esterase Ur Random Sodium Urine Creatinine Stool Occult Blood COVID-19 ([facility]NARDO) COVID-19 Clin Com Influenza Type A (DORIS) Influenza Type B (DORIS) Influenza A & B Note 03/14/25 Unknown MCV MCH MCHC RDW Plt Count MPV Immature Gran % (Auto) Neut % (Auto) Lymph % (Auto) [place] % (Auto) Eos % (Auto) Baso % (Auto) Lymph # (Auto) [place] # (Auto) Eos # (Auto) Baso # (Auto) Abs Immat Gran (auto) Absolute Neuts (auto) Absolute Nucleated RBC Nucleated RBC % (auto) VBG pH VBG pCO2 VBG pO2 VBG HCO3 VBG O2 Saturation VBG Base Excess Anion Gap Estim Creat Clear Calc Estimated GFR POC Glucose Random Glucose Lactic Acid Lactic Acid F/U @ 2Hr Lactic Acid F/U @ 4Hr Calcium Total Bilirubin AST ALT Alkaline Phosphatase B-Natriuretic Peptide Total Protein Albumin Urine Color Urine Appearance Urine pH Ur Specific [place] Urine Protein Urine Glucose (UA) Urine Ketones Urine Blood Urine Nitrite Ur Leukocyte Esterase Ur Random Sodium 49.0 Urine Creatinine 58.87 Stool Occult Blood COVID-19 (BERNARDO) COVID-19 Clin Com Influenza Type A (DORIS) Influenza Type B (DORIS) Influenza A & B Note Assessment and Plan (1) Acute kidney failure: Status: Acute Plan d2, 79yo M with AF on apixaban, HTN, CHF, HLD with recent 36-day hospitalization at [facility] in [facility] for respiratory failure/pulmonary edema/CHF exacerbation during which he was intubated twice [though the discharge summary we have is incomplete and does not mention this] presenting after a fall and found to have VERENA VERENA - FENa indeterminate 1.9%, Nephrology consult pending, renal US pending, d/c IV fluids due to risk of fluid overload and could in fact have cardiorenal syndrome - during last hospitalization SCr peaked at 1.7 - hold bumetanide, lisinopril, MTF, metolazone T12 compression fracture - lidocaine patch ground-glass opacities in lung - suspect residual from recent respiratory failure, currently not hypoxic and without cough or dyspnea lactic acidosis, acute - suspect MTF effect, no septic HF unknown EF - continue metoprolol tartrate; hold bumetanide, lisinopril, metolazone chronic AF - continue apixaban, metoprolol tartrate HLD - statin, ASA DM2 - hold MTF; correction-dose lispro prostatism - doxazosin, tamsulosin VTE ppx - apixaban, renally dosed dispo - PT eval In my clinical judgment, the patient requires continued inpatient hospitalization for the following reasons: VERENA Total time managing care of this patient today: 35 minutes. Quality Stroke Does the patient have a stroke diagnosis?: No VTE Prior VTE?: No VTE Risk Level:: Medical - moderate - high VTE Device Contraindication: Treatment Not Indicated VTE Drug Contraindication: N/A - Med Ordered
--- NOTE | 2025-03-14 11:56 | HO.WOUND ---
Wound Consult: Initial 79 yr old male admitted [place] [facility] [place]- See progress notes and H&P for detailed history. Wound consult placed for coccyx. Patient agreeable to assessment and photo documentation. patient reports multiple falls recently. Coccyx/buttocks Etiology: Blanchable redness Wound Bed: intact blanchable redness Drainage / Odor: none Tammie wound: ? No Induration, Fluctuance or Warmth noted Pain: none Goals of Treatment: ? prevention- offloading/pressure redistribution with foam dressing Right lower leg Etiology: skin tear/ruptured blister Measurements: 1cm x 1cm x 0.1cm Wound Bed: pink/red Drainage / Odor: none Edges: ? open Tammie wound: ? No Induration, Fluctuance or Warmth noted Pain: itching Goals of Treatment: ? moist healing with xeroform/foam Recommendations: 1. Turn and Reposition every 2 hours and as needed for patient comfort. Use pillows or wedges to support off loading positions. 2. Off Load all bony prominences with use of pillows and heel boots if needed. Apply Preventative foams where needed. 3. Monitor for incontinence and moisture control, use barrier creams when needed for prevention and treatment. 4. Provide adequate and supplemental nutrition. 5. Order or Continue low air loss mattress. 6. When applicable maintain blood glucose levels per Providers order. Coccyx/buttocks: Off Load Pressure with Q2 hr turns and use of pillows - Routine cleansing. Apply skin prep allow to dry. Cover with foam dressing to aid in off loading and protection from friction. Change every 3 days and PRN. Right lower leg: cleanse with normal saline, pat dry, apply xeroform, cover with foam, change every other day and PRN Re-consult wound care Nurse for wound deterioration or wound changes.
[2025-03-14 12:37] VITALS: BP 110/56; PULSE 85; O2SAT 98
[2025-03-14 15:40] VITALS: BP 104/57; PULSE 68; RESP 18; TEMP 36.1; O2SAT 98
[2025-03-14 16:58] LABS: Glucose, Whole Blood 154 mg/dL (60-115)
[2025-03-14 19:26] VITALS: BP 109/55; PULSE 65; RESP 18; TEMP 36.4; O2SAT 100
[2025-03-14 19:46] LABS: Glucose, Whole Blood 161 mg/dL (60-115)
[2025-03-15 03:30] VITALS: BP 119/58; PULSE 69; RESP 18; TEMP 36.1; O2SAT 97
[2025-03-15 07:01] LABS: Anion Gap 14 (12-20); Blood Urea Nitrogen 63 mg/dL (9-16); Calcium 8.7 mg/dL (8.4-10.2); Carbon Dioxide 26 mmol/L (22-29); Chloride 103 mmol/L (96-108); Creatinine Clr Calc Pharmacy 27.1; Estimated Glomerular Filt Rate 24; Potassium 4.7 mmol/L (3.3-5.1); Sodium 138 mmol/L (135-145)
[2025-03-15 07:08] LABS: B Type Natriuretic Peptide 147 pg/mL (<100)
[2025-03-15 07:18] LABS: Glucose, Whole Blood 122 mg/dL (60-115)
[2025-03-15 07:42] VITALS: BP 112/53; PULSE 83; RESP 18; TEMP 36.1; O2SAT 97
[2025-03-15] MEDS: Lidocaine 4 % Patch ADH..PATCH 1 PATCH TRANSDERMA (09:56)
[2025-03-15 10:00] VITALS: BP 103/56; PULSE 89
[2025-03-15] MEDS: 0.9 % Sodium Chloride Flush 3 ML SYRINGE IVFLUSH ×2 (10:02→20:29)
[2025-03-15 11:20] LABS: Glucose, Whole Blood 191 mg/dL (60-115)
--- NOTE | 2025-03-15 11:35 | HO.PM.IMPN ---
Subjective Subjective Date of Service: 03/15/25 Interval History: C/o weakness. No dyspnea or cough. No chest pain. SCr improving. Review of Systems Review of Systems: Yes all other systems are reviewed and are negative Physical Exam Vital Signs: Vital Signs: Last Vital Signs Temp 97.0 F 03/15/25 07:42 Pulse 89 03/15/25 10:00 Resp 18 03/15/25 07:42 BP 103/56 L 03/15/25 10:00 Pulse Ox 97 03/15/25 07:42 O2 Del Method Room Air 03/15/25 07:42 BMI result Body Mass Index 31.9 Gen: in no acute distress HEENT: sclera anicteric, moist mucus membranes Neck: supple Lungs: clear to auscultation bilaterally Heart: irregular, no murmurs Abd: soft, non-tender, non-distended Ext: trace bilateral leg edema Skin: warm/well-perfused Neuro: alert and oriented x3, no focal findings Psych: appropriate affect Objective Data Active Medications Acetaminophen (Acetaminophen 325 Mg Tablet) 650 mg PO Q6H PRN PRN Reason: Pain, Mild 1-3,fever,headache Alprazolam (Alprazolam 0.5 Mg Tablet) 0.5 mg PO Q8H PRN PRN Reason: Anxiety Apixaban (Apixaban 2.5 Mg Tablet) 2.5 mg PO BID [facility] Last Admin: 03/15/25 09:59 Dose: 2.5 mg Documented By: MELISSA Aspirin (Aspirin 81 Mg Tab.Chew) 81 mg PO DAILY [facility] Last Admin: 03/15/25 10:00 Dose: 81 mg Documented By: MELISSA Atorvastatin Calcium (Atorvastatin Calcium 40 Mg Tablet) 40 mg PO BEDTIME [facility] Last Admin: 03/14/25 20:04 Dose: 40 mg Documented By: ALETHEA Calcium Carbonate (Calcium Carbonate 750 Mg Tab.Chew) 750 mg PO Q4H PRN PRN Reason: Heartburn Dextrose (Dextrose 50 % 25 Gm/50 Ml Syringe) 25 gm IVPUSH Q15M PRN; Protocol PRN Reason: per Hypoglycemia Standing Ord. Doxazosin Mesylate (Doxazosin Mesylate 1 Mg Tablet) 1 mg PO BEDTIME [facility]; Protocol Last Admin: 03/14/25 20:04 Dose: 1 mg Documented By: HO.GORDNEK Glucose (Glucose Gel 15 Gm Gel..Gram.) 15 gm PO Q15M PRN; Protocol PRN Reason: per Hypoglycemia Standing Ord. Insulin Human Lispro (Insulin Lispro 100 Unit/Ml 3 Ml Vial) 0 unit SUBCUT QIDACHS [facility]; Protocol Last Admin: 03/15/25 07:42 Dose: Not Given Documented By: MELISSA Non-Admin Reason: No Insulin Coverage Lidocaine (Lidocaine 4 % Patch Adh..Patch) 1 patch TRANSDERMA DAILY [facility]; Protocol Last Admin: 03/15/25 09:56 Dose: 1 patch Documented By: MELISSA Magnesium Hydroxide (Milk Of Magnesia 30 Ml Oral.Susp) 30 ml PO DAILY PRN PRN Reason: Constipation Melatonin (Melatonin 3 Mg Tablet) 6 mg PO BEDTIME PRN PRN Reason: Insomnia Metoprolol Tartrate (Metoprolol Tartrate 25 Mg Tablet) 25 mg PO BID [facility]; Protocol Last Admin: 03/15/25 10:00 Dose: 25 mg Documented By: MELISSA Morphine Sulfate (Morphine Sulfate 4 Mg/Ml Cartridge) 4 mg IVPUSH Q4H PRN; Protocol PRN Reason: Pain, Severe (Pain Scale 7-10) Last Admin: 03/14/25 17:02 Dose: 4 mg Documented By: DALI Ondansetron HCl (Ondansetron Hcl 4 Mg/2 Ml Vial) 4 mg IVPUSH Q8H PRN PRN Reason: Nausea and Vomiting Oxycodone HCl (Oxycodone Hcl Immed Release 5 Mg Tablet) 5 mg PO Q6H PRN PRN Reason: Pain moderate Sodium Chloride (0.9 % Sodium Chloride Flush 3 Ml Syringe) 3 ml IVFLUSH QSHIFT [facility] Last Admin: 03/15/25 10:02 Dose: 3 ml Documented By: MELISSA Tamsulosin HCl (Tamsulosin Hcl 0.4 Mg Capsule) 0.4 mg PO DAILY [facility] Last Admin: 03/15/25 09:59 Dose: 0.4 mg Documented By: MELISSA Labs 03/14/25 05:31 03/15/25 05:51 Labs: Laboratory Results - last 24 hr 03/14/25 03/14/25 03/15/25 16:51 19:41 05:51 Anion Gap 14 Estim Creat Clear Calc 27.1 Estimated GFR 24 POC Glucose 154 H 161 H Random Glucose 125 H Calcium 8.7 B-Natriuretic Peptide 147 H 03/15/25 03/15/25 07:12 11:12 Anion Gap Estim Creat Clear Calc Estimated GFR POC Glucose 122 H 191 H Random Glucose Calcium B-Natriuretic Peptide Microbiology Microbiology Results: Microbiology 03/13/25 12:08 Blood Culture - Preliminary Blood - Venous No growth after 24 hours. 03/13/25 12:08 Blood Culture - Preliminary Blood - Venous No growth after 24 hours. Assessment and Plan (1) Acute kidney failure: Status: Acute Plan d3, 79yo M with AF on apixaban, HTN, CHF, HLD with recent 36-day hospitalization at [facility] in [facility] for respiratory failure/pulmonary edema/CHF exacerbation during which he was intubated twice presenting after a fall and found to have VERENA I reviewed the records from [facility]. His Cr peaked at 1.71 and was discharged on 03/03 with SCr 1.21. Discharge medications were listed as bumetanide 1 mg bid and metolazone 2.5 mg bid. VERENA - Likely due to excess diuretic. Nephrology following. Held fluids and also holding diuretics [bumetanide, metolazone]. Also holding lisinopril. SCr steadily improving; recheck tomorrow. T12 compression fracture - lidocaine patch ground-glass opacities in lung - Suspect residual from recent respiratory failure, currently not hypoxic and without cough or dyspnea lactic acidosis, acute - Suspect MTF effect, no septic; d/c MTF given VERENA chronic HFrEF - Continue metoprolol tartrate; holding bumetanide, lisinopril, metolazone - TTE 03/14: 1. [id number] LV systolic dysfunction with LVEF of 40-45% with moderate increase in left ventricular wall thickness 2. Severely dilated left atrium 3. Calcific aortic valve changes noted with overall normal cardiac valvular Dopplers 4. Normal RV systolic pressure with mildly elevated right atrial pressures 5. Mildly dilated ascending aorta at 3.7 cm 6. No gross pericardial effusion - Pt of Dr Keller at [facility] [place] Cardiology; consult 03/17 chronic AF - continue apixaban, metoprolol tartrate HLD - statin, ASA DM2 - hold MTF; correction-dose lispro prostatism - doxazosin, tamsulosin VTE ppx - apixaban, renally dosed dispo - PT eval: STR recommended In my clinical judgment, the patient requires continued inpatient hospitalization for the following reasons: VERENA Total time managing care of this patient today: 35 minutes. Quality Stroke Does the patient have a stroke diagnosis?: No VTE Prior VTE?: No VTE Risk Level:: Medical - moderate - high VTE Device Contraindication: Treatment Not Indicated VTE Drug Contraindication: N/A - Med Ordered
[2025-03-15 15:59] VITALS: BP 113/54; PULSE 79; RESP 20; TEMP 36.6; O2SAT 94
[2025-03-15 16:43] LABS: Glucose, Whole Blood 132 mg/dL (60-115)
[2025-03-15 19:58] VITALS: BP 118/56; PULSE 67; RESP 18; TEMP 36.2; O2SAT 94
[2025-03-15 20:21] LABS: Glucose, Whole Blood 201 mg/dL (60-115)
[2025-03-16] VITALS (9 sets, daily range): BP systolic 97–124; BP diastolic 48–62; PULSE 66–96; RESP 16–18; TEMP 36.1–36.9; O2SAT 93–99
[2025-03-16 06:55] LABS: Anion Gap 15 (12-20); Blood Urea Nitrogen 57 mg/dL (9-16); Calcium 8.5 mg/dL (8.4-10.2); Carbon Dioxide 24 mmol/L (22-29); Chloride 102 mmol/L (96-108); Creatinine Clr Calc Pharmacy 32.6; Estimated Glomerular Filt Rate 30; Potassium 4.4 mmol/L (3.3-5.1); Sodium 137 mmol/L (135-145)
[2025-03-16 07:18] LABS: Glucose, Whole Blood 90 mg/dL (60-115)
--- NOTE | 2025-03-16 07:19 | HO.PM.IMPN ---
Subjective Subjective Date of Service: 03/16/25 Interval History: Patient was mildly hypotensive this a.m., asymptomatic We are awaiting short-term rehab Bedside RN stated that he has left arm pain on movement-likely secondary to the fall Patient reports left arm pain on ambulation-reports he has been diagnosed with arthritis in outpatient setting Review of Systems Review of Systems: Yes all other systems are reviewed and are negative Physical Exam Exam: Exam: General: AOx3, no acute distress Resp: CTA bilaterally CVS: S1, S2, RRR GI: +BS, NT, no distention Extremities: Left upper extremity swollen compared to right upper extremity, LUE in sling, was tender with adduction and abduction Psych: Appropriate affect Vital Signs: Vital Signs: Last Vital Signs Temp 97.4 F 03/16/25 03:50 Pulse 72 03/16/25 03:50 Resp 18 03/16/25 03:50 BP 103/53 L 03/16/25 03:50 Pulse Ox 99 03/16/25 03:50 O2 Del Method Room Air 03/16/25 03:50 BMI result Body Mass Index 31.9 Objective Data Active Medications Acetaminophen (Acetaminophen 325 Mg Tablet) 650 mg PO Q6H PRN PRN Reason: Pain, Mild 1-3,fever,headache Alprazolam (Alprazolam 0.5 Mg Tablet) 0.5 mg PO Q8H PRN PRN Reason: Anxiety Apixaban (Apixaban 2.5 Mg Tablet) 2.5 mg PO BID ON LICENSE OF [facility] Last Admin: 03/15/25 20:28 Dose: 2.5 mg Documented By: ALETHEA Aspirin (Aspirin 81 Mg Tab.Chew) 81 mg PO DAILY NANCY Last Admin: 03/15/25 10:00 Dose: 81 mg Documented By: MELISSA Atorvastatin Calcium (Atorvastatin Calcium 40 Mg Tablet) 40 mg PO BEDTIME NANCY Last Admin: 03/15/25 20:28 Dose: 40 mg Documented By: ALETHEA Calcium Carbonate (Calcium Carbonate 750 Mg Tab.Chew) 750 mg PO Q4H PRN PRN Reason: Heartburn Dextrose (Dextrose 50 % 25 Gm/50 Ml Syringe) 25 gm IVPUSH Q15M PRN; Protocol PRN Reason: per Hypoglycemia Standing Ord. Doxazosin Mesylate (Doxazosin Mesylate 1 Mg Tablet) 1 mg PO BEDTIME ON LICENSE OF [facility]; Protocol Last Admin: 03/15/25 20:28 Dose: 1 mg Documented By: ALETHEA Glucose (Glucose Gel 15 Gm Gel..Gram.) 15 gm PO Q15M PRN; Protocol PRN Reason: per Hypoglycemia Standing Ord. Insulin Human Lispro (Insulin Lispro 100 Unit/Ml 3 Ml Vial) 0 unit SUBCUT QIDACHS ON LICENSE OF [facility]; Protocol Last Admin: 03/15/25 20:28 Dose: 4 unit Documented By: ALETHEA Lidocaine (Lidocaine 4 % Patch Adh..Patch) 1 patch TRANSDERMA DAILY ON LICENSE OF [facility]; Protocol Last Admin: 03/15/25 09:56 Dose: 1 patch Documented By: MELISSA Magnesium Hydroxide (Milk Of Magnesia 30 Ml Oral.Susp) 30 ml PO DAILY PRN PRN Reason: Constipation Melatonin (Melatonin 3 Mg Tablet) 6 mg PO BEDTIME PRN PRN Reason: Insomnia Metoprolol Tartrate (Metoprolol Tartrate 25 Mg Tablet) 25 mg PO BID ON LICENSE OF [facility]; Protocol Last Admin: 03/15/25 20:27 Dose: 25 mg Documented By: ALETHEA Morphine Sulfate (Morphine Sulfate 4 Mg/Ml Cartridge) 4 mg IVPUSH Q4H PRN; Protocol PRN Reason: Pain, Severe (Pain Scale 7-10) Last Admin: 03/15/25 20:28 Dose: 4 mg Documented By: ALETHEA Ondansetron HCl (Ondansetron Hcl 4 Mg/2 Ml Vial) 4 mg IVPUSH Q8H PRN PRN Reason: Nausea and Vomiting Oxycodone HCl (Oxycodone Hcl Immed Release 5 Mg Tablet) 5 mg PO Q6H PRN PRN Reason: Pain moderate Sodium Chloride (0.9 % Sodium Chloride Flush 3 Ml Syringe) 3 ml IVFLUSH QSHIFT ON LICENSE OF [facility] Last Admin: 03/15/25 20:29 Dose: 3 ml Documented By: ALETHEA Tamsulosin HCl (Tamsulosin Hcl 0.4 Mg Capsule) 0.4 mg PO DAILY ON LICENSE OF [facility] Last Admin: 03/15/25 09:59 Dose: 0.4 mg Documented By: MELISSA Labs 03/14/25 05:31 03/16/25 06:06 Labs: Laboratory Results - last 24 hr 03/15/25 03/15/25 03/15/25 07:12 11:12 16:36 Hold Purple Top Anion Gap Estim Creat Clear Calc Estimated GFR POC Glucose 122 H 191 H 132 H Random Glucose Calcium 03/15/25 03/16/25 03/16/25 20:08 06:06 07:08 Hold Purple Top SEE NOTE Anion Gap 15 Estim Creat Clear Calc 32.6 Estimated GFR 30 POC Glucose 201 H 90 Random Glucose 106 Calcium 8.5 Microbiology Microbiology Results: Microbiology 03/13/25 12:08 Blood Culture - Preliminary Blood - Venous No growth after 48 hours. 03/13/25 12:08 Blood Culture - Preliminary Blood - Venous No growth after 48 hours. Assessment and Plan (1) Acute kidney failure: Status: Acute Plan Patient is a 79yo M with AF on apixaban, HTN, HFrEF (LVEF 40-45%), HLD with recent 36-day hospitalization at [facility] in [facility] for respiratory failure/pulmonary edema/CHF exacerbation during which he was intubated twice presenting after a fall and found to have VERENA likely secondary to aggressive diuresis ( the records from [facility]. His Cr peaked at 1.71 and was discharged on 03/03 with SCr 1.21. Discharge medications were listed as bumetanide 1 mg bid and metolazone 2.5 mg bid). VERENA - Likely due to excess diuretic. Nephrology following. Held fluids and also holding diuretics [bumetanide, metolazone]. Also holding lisinopril. SCr steadily improving; recheck tomorrow Currently stable, we will likely be discharged without any diuretics or lisinopril. Chronic/prior T12 compression fracture - lidocaine patch ground-glass opacities in lung - Suspect residual from recent respiratory failure, currently not hypoxic and without cough or dyspnea, continue to monitor lactic acidosis, acute-resolved upon holding metformin - Suspect MTF effect, no septic; d/c MTF given VERENA chronic HFrEF - Continue metoprolol tartrate; holding bumetanide, lisinopril, metolazone - TTE 03/14: 1. [id number] LV systolic dysfunction with LVEF of 40-45% with moderate increase in left ventricular wall thickness 2. Severely dilated left atrium 3. Calcific aortic valve changes noted with overall normal cardiac valvular Dopplers 4. Normal RV systolic pressure with mildly elevated right atrial pressures 5. Mildly dilated ascending aorta at 3.7 cm 6. No gross pericardial effusion - Pt of Dr Keller at [facility] Card[facility]; consult 03/17 chronic AF - continue apixaban, metoprolol tartrate HLD - statin, ASA DM2 - hold MTF; correction-dose lispro BPH - doxazosin, tamsulosin If continues to be hypotensive-we will hold these meds VTE ppx - apixaban, renally dosed dispo - PT eval: STR recommended We will check orthostasis given low blood pressure despite holding all diuretics and antihypertensives Total time managing care of this patient today: 35 minutes. Quality Stroke Does the patient have a stroke diagnosis?: No VTE Prior VTE?: No VTE Risk Level:: Medical - moderate - high VTE Device Contraindication: Treatment Not Indicated VTE Drug Contraindication: N/A - Med Ordered
[2025-03-16 08:03] LABS: EOS Counted 0 CELLS; EOS QC POS YES; EOS Stain Quality OK YES; WBC, Counted 0 CELLS
[2025-03-16] MEDS: Lidocaine 4 % Patch ADH..PATCH 1 PATCH TRANSDERMA (10:56)
[2025-03-16] MEDS: 0.9 % Sodium Chloride Flush 3 ML SYRINGE IVFLUSH ×3 (10:57→21:25)
[2025-03-16 11:17] LABS: Glucose, Whole Blood 162 mg/dL (60-115)
[2025-03-16 16:23] LABS: Glucose, Whole Blood 136 mg/dL (60-115)
[2025-03-16] MEDS: Morphine Sulfate ER 15 MG TABLET.ER PO (17:44)
[2025-03-16 21:06] LABS: Glucose, Whole Blood 171 mg/dL (60-115)
[2025-03-17] VITALS (13 sets, daily range): BP systolic 88–119; BP diastolic 44–68; PULSE 62–124; RESP 16–18; TEMP 36–36.5; O2SAT 94–99
--- NOTE | 2025-03-17 01:39 | PC.NURSE ---
0118- Alerted by [facility] CMT of patients heart rate dipping into the mid 30's for a very short period. Patient on tele and rate has been AFIB controlled. Patient was awakened, denied any pain or discomforts, denied feeling different, and HR 62. Pt was alert and appropriate, he asked for and was given juice, HOB up, repositioned, and Hospitalist on duty was alerted. Text note was read and no new orders noted at this time, will keep watch to patient closely.
[2025-03-17 06:25] LABS: MANUAL DIFF FLAG NO
[2025-03-17 06:48] LABS: Alanine Aminotransferase < 6 U/L (0-40); Albumin Level 2.8 g/dL (3.5-5.0); Alkaline Phosphatase 85 U/L (39-117); Anion Gap 12 (12-20); Aspartate Amino Transferase 13 U/L (5-37); Blood Urea Nitrogen 55 mg/dL (9-16); Calcium 8.5 mg/dL (8.4-10.2); Carbon Dioxide 25 mmol/L (22-29); Chloride 103 mmol/L (96-108); Creatinine Clr Calc Pharmacy 31.4; Estimated Glomerular Filt Rate 29; Potassium 4.1 mmol/L (3.3-5.1); Sodium 136 mmol/L (135-145); Total Protein 5.0 g/dL (6.5-8.0)
[2025-03-17 06:50] LABS: Hematocrit 26.1 % (42.0-52.0); Hemoglobin 8.6 g/dl (14.0-18.0); Imm Gran Abs Auto 0.02 X10*3/uL (0.00-0.03); Imm Gran Pct Auto 0.5 % (0.0-0.4); Lymphocytes Absolute Auto 1.0 X10*3/uL (1.2-4.9); Mean Corpuscular HGB Conc 33.0 g/dl (31.0-36.0); Mean Corpuscular Hemoglobin 28.5 pg (27.0-33.0); Mean Corpuscular Volume 86.4 fL (80.0-98.0); NRBC Abs Auto 0.000 X10*3/uL (0.0-0.012); NRBC Pct Auto 0.0 /100WBC (0.0-0.2); Platelet Count 126 X10*3/uL (160-400); Red Blood Count 3.02 X10*6/uL (4.60-5.80); White Blood Count 3.9 X10*3/uL (4.8-10.8)
[2025-03-17 07:31] LABS: Glucose, Whole Blood 112 mg/dL (60-115)
--- NOTE | 2025-03-17 07:33 | HO.PM.IMPN ---
Subjective Subjective Date of Service: 03/17/25 Interval History: Patient reports being better Asked what should I do to improve ? MRI of the left shoulder not approved by insurance, we will likely need to be placed outpatient Attempting to get left upper extremity ultrasound to rule out DVT Review of Systems Review of Systems: Yes all other systems are reviewed and are negative Physical Exam Exam: Exam: General: AOx3, no acute distress Resp: CTA bilaterally CVS: S1, S2, RRR GI: +BS, NT, no distention Extremities: Left upper extremity swollen compared to right upper extremity,limited motion adduction and abduction Psych: Anxious affect Vital Signs: Vital Signs: Last Vital Signs Temp 97.4 F 03/17/25 03:32 Pulse 67 03/17/25 03:32 Resp 18 03/17/25 03:32 BP 119/58 L 03/17/25 03:32 Pulse Ox 94 03/17/25 03:32 O2 Del Method Room Air 03/17/25 03:32 BMI result Body Mass Index 31.9 Objective Data Active Medications Acetaminophen (Acetaminophen 325 Mg Tablet) 975 mg PO Q8H [facility] Last Admin: 03/16/25 23:14 Dose: 975 mg Documented By: MANDEEP Alprazolam (Alprazolam 0.5 Mg Tablet) 0.5 mg PO Q8H PRN PRN Reason: Anxiety Apixaban (Apixaban 2.5 Mg Tablet) 2.5 mg PO BID [facility] Last Admin: 03/16/25 21:24 Dose: 2.5 mg Documented By: MANDEEP Aspirin (Aspirin 81 Mg Tab.Chew) 81 mg PO DAILY [facility] Last Admin: 03/16/25 10:54 Dose: 81 mg Documented By: MELISSA Atorvastatin Calcium (Atorvastatin Calcium 40 Mg Tablet) 40 mg PO BEDTIME NANCY Last Admin: 03/16/25 21:24 Dose: 40 mg Documented By: MANDEEP Calcium Carbonate (Calcium Carbonate 750 Mg Tab.Chew) 750 mg PO Q4H PRN PRN Reason: Heartburn Dextrose (Dextrose 50 % 25 Gm/50 Ml Syringe) 25 gm IVPUSH Q15M PRN; Protocol PRN Reason: per Hypoglycemia Standing Ord. Doxazosin Mesylate (Doxazosin Mesylate 1 Mg Tablet) 1 mg PO BEDTIME [facility]; Protocol Last Admin: 03/16/25 21:24 Dose: 1 mg Documented By: MANDEEP Glucose (Glucose Gel 15 Gm Gel..Gram.) 15 gm PO Q15M PRN; Protocol PRN Reason: per Hypoglycemia Standing Ord. Insulin Human Lispro (Insulin Lispro 100 Unit/Ml 3 Ml Vial) 0 unit SUBCUT QIDACHS [facility]; Protocol Last Admin: 03/16/25 21:24 Dose: 2 unit Documented By: MANDEEP Lidocaine (Lidocaine 4 % Patch Adh..Patch) 1 patch TRANSDERMA DAILY [facility]; Protocol Last Admin: 03/16/25 10:56 Dose: 1 patch Documented By: MELISSA Melatonin (Melatonin 3 Mg Tablet) 6 mg PO BEDTIME PRN PRN Reason: Insomnia Metoprolol Tartrate (Metoprolol Tartrate 25 Mg Tablet) 25 mg PO BID [facility]; Protocol Last Admin: 03/16/25 21:24 Dose: 25 mg Documented By: MANDEEP Morphine Sulfate (Morphine Sulfate Er 15 Mg Tablet.Er) 15 mg PO Q8H PRN PRN Reason: Breakthrough Pain Last Admin: 03/16/25 17:44 Dose: 15 mg Documented By: MELISSA Ondansetron HCl (Ondansetron Hcl 4 Mg/2 Ml Vial) 4 mg IVPUSH Q8H PRN PRN Reason: Nausea and Vomiting Oxycodone HCl (Oxycodone Hcl Immed Release 5 Mg Tablet) 5 mg PO Q6H PRN PRN Reason: Pain moderate Sodium Chloride (0.9 % Sodium Chloride Flush 3 Ml Syringe) 3 ml IVFLUSH QSHIFT [facility] Last Admin: 03/16/25 21:25 Dose: 3 ml Documented By: MANDEEP Tamsulosin HCl (Tamsulosin Hcl 0.4 Mg Capsule) 0.4 mg PO DAILY [facility] Last Admin: 03/16/25 10:54 Dose: 0.4 mg Documented By: MELISSA Labs 03/17/25 06:14 03/17/25 06:14 Labs: Laboratory Results - last 24 hr 03/16/25 03/16/25 03/16/25 03:08 11:12 16:19 MCV MCH MCHC RDW Plt Count MPV Immature Gran % (Auto) Neut % (Auto) Lymph % (Auto) [place] % (Auto) Eos % (Auto) Baso % (Auto) Lymph # (Auto) [place] # (Auto) Eos # (Auto) Baso # (Auto) Abs Immat Gran (auto) Absolute Neuts (auto) Absolute Nucleated RBC Nucleated RBC % (auto) Anion Gap Estim Creat Clear Calc Estimated GFR POC Glucose 162 H 136 H Random Glucose Calcium Total Bilirubin AST ALT Alkaline Phosphatase Total Protein Albumin Urine Eosinophils % 0.0 03/16/25 03/17/25 03/17/25 20:33 06:14 07:27 MCV 86.4 MCH 28.5 MCHC 33.0 RDW 21.3 H Plt Count 126 L MPV Not Reportable Immature Gran % (Auto) 0.5 H Neut % (Auto) 62.8 Lymph % (Auto) 26.4 [place] % (Auto) 6.7 Eos % (Auto) 2.8 Baso % (Auto) 0.8 Lymph # (Auto) 1.0 L [place] # (Auto) 0.3 Eos # (Auto) 0.1 Baso # (Auto) 0.0 Abs Immat Gran (auto) 0.02 Absolute Neuts (auto) 2.4 Absolute Nucleated RBC 0.000 Nucleated RBC % (auto) 0.0 Anion Gap 12 Estim Creat Clear Calc 31.4 Estimated GFR 29 POC Glucose 171 H 112 Random Glucose 118 H Calcium 8.5 Total Bilirubin 0.6 AST 13 ALT < 6 Alkaline Phosphatase 85 Total Protein 5.0 L Albumin 2.8 L Urine Eosinophils % Assessment and Plan (1) Acute kidney failure: Status: Acute Plan Patient is a 79yo M with AF on apixaban, HTN, HFrEF (LVEF 40-45%), HLD with recent 36-day hospitalization at [facility] in [facility] for respiratory failure/pulmonary edema/CHF exacerbation during which he was intubated twice presenting after a fall and found to have VERENA likely secondary to aggressive diuresis ( the records from [facility]. His Cr peaked at 1.71 and was discharged on 03/03 with SCr 1.21. Discharge medications were listed as bumetanide 1 mg bid and metolazone 2.5 mg bid). VERENA Likely in the setting of excess diuresis/diuretics. Which have since been held on admission. Currently not yet back to his baseline, however we will be closely followed outpatient by Nephrology. Patient has his diuretics and lisinopril discontinued as he remains euvolemic and hypotensive Possible left shoulder tear severe arthritis MRI to be done outpatient as per policy/insurance PT Chronic/prior T12 compression fracture - continue lidocaine patch ground-glass opacities in lung - Suspect residual from recent respiratory failure, currently not hypoxic and without cough or dyspnea, continue to monitor lactic acidosis, acute-resolved upon holding metformin - Suspect MTF effect, no septic; d/c MTF given VERENA chronic HFrEF - Continue metoprolol tartrate; holding bumetanide, lisinopril, metolazone - TTE 03/14: 1. [id number] LV systolic dysfunction with LVEF of 40-45% with moderate increase in left ventricular wall thickness 2. Severely dilated left atrium 3. Calcific aortic valve changes noted with overall normal cardiac valvular Dopplers 4. Normal RV systolic pressure with mildly elevated right atrial pressures 5. Mildly dilated ascending aorta at 3.7 cm 6. No gross pericardial effusion - Pt of Dr Keller at [facility] Cardiology; consult 03/17 chronic AF - continue apixaban, metoprolol tartrate HLD - statin, ASA DM2 - hold MTF; correction-dose lispro BPH - doxazosin, tamsulosin If continues to be hypotensive-we will hold these meds VTE ppx - apixaban, renally dosed dispo - PT eval: STR recommended Medically stable, awaiting insurance authorization and bed availability This note is constructed using voice recognition software. While every effort has been made to ensure accuracy, belt measurer errors may have been included. Total time managing care of this patient today: 35 minutes. Quality Stroke Does the patient have a stroke diagnosis?: No VTE Prior VTE?: No VTE Risk Level:: Medical - moderate - high VTE Device Contraindication: Treatment Not Indicated VTE Drug Contraindication: N/A - Med Ordered
[2025-03-17] MEDS: 0.9 % Sodium Chloride Flush 3 ML SYRINGE IVFLUSH (08:36)
[2025-03-17] MEDS: Lidocaine 4 % Patch ADH..PATCH 1 PATCH TRANSDERMA (08:40)
--- NOTE | 2025-03-17 09:45 | P.PNNP_ITS ---
Subjective Subjective Date of Service: 03/17/25 Interval history: patient here with VERENA, had been on high dose oral diuretics as outpatient, in addition to lisinopril. Creatinine has started to improve gradually after fluid resuscitation. He denies chest pain, abdominal/flank pain, shortness of breath, urinary symptoms. No LE edema today. creatinine 2.19 (was 3.08 on admission). Physical Exam 2 Vital Signs: Vital Signs: Last Vital Signs Temp 96.8 F 03/17/25 07:55 Pulse 97 03/17/25 08:17 Resp 16 03/17/25 07:55 BP 101/57 L 03/17/25 08:17 Pulse Ox 99 03/17/25 07:55 O2 Del Method Room Air 03/17/25 07:55 BMI result Body Mass Index 31.9 Const: General: no acute distress, alert and awake Resp: Effort & Inspection: normal respiratory effort and able to speak in complete sentences Auscultation: clear to auscultation bilaterally Cardio: Rate: regular rate Rhythm: regular rhythm Heart sounds: S1 normal heart sound present and S2 normal heart sound present GI: Palpation (GI): Soft to palpation and nontender Skin: Rashes: no rashes Extrem: General: No edema Objective Data Labs 03/17/25 06:14 03/17/25 06:14 Labs: Laboratory Results - last 24 hr 03/16/25 03/16/25 03/17/25 16:19 20:33 06:14 WBC 3.9 L RBC 3.02 L Hgb 8.6 L Hct 26.1 L MCV 86.4 MCH 28.5 MCHC 33.0 RDW 21.3 H Plt Count 126 L MPV Not Reportable Immature Gran % (Auto) 0.5 H Neut % (Auto) 62.8 Lymph % (Auto) 26.4 [place] % (Auto) 6.7 Eos % (Auto) 2.8 Baso % (Auto) 0.8 Lymph # (Auto) 1.0 L [place] # (Auto) 0.3 Eos # (Auto) 0.1 Baso # (Auto) 0.0 Abs Immat Gran (auto) 0.02 Absolute Neuts (auto) 2.4 Absolute Nucleated RBC 0.000 Nucleated RBC % (auto) 0.0 Sodium 136 Potassium 4.1 Chloride 103 Carbon Dioxide 25 Anion Gap 12 BUN 55 H Creatinine 2.19 H Estim Creat Clear Calc 31.4 Estimated GFR 29 POC Glucose 136 H 171 H Random Glucose 118 H Calcium 8.5 Total Bilirubin 0.6 AST 13 ALT < 6 Alkaline Phosphatase 85 Total Protein 5.0 L Albumin 2.8 L 03/17/25 03/17/25 07:27 11:13 WBC RBC Hgb Hct MCV MCH MCHC RDW Plt Count MPV Immature Gran % (Auto) Neut % (Auto) Lymph % (Auto) [place] % (Auto) Eos % (Auto) Baso % (Auto) Lymph # (Auto) [place] # (Auto) Eos # (Auto) Baso # (Auto) Abs Immat Gran (auto) Absolute Neuts (auto) Absolute Nucleated RBC Nucleated RBC % (auto) Sodium Potassium Chloride Carbon Dioxide Anion Gap BUN Creatinine Estim Creat Clear Calc Estimated GFR POC Glucose 112 192 H Random Glucose Calcium Total Bilirubin AST ALT Alkaline Phosphatase Total Protein Albumin Microbiology Microbiology Results: Microbiology 03/13/25 12:08 Blood - Venous Blood Culture - Preliminary No growth after 48 hours. 03/13/25 12:08 Blood - Venous Blood Culture - Preliminary No growth after 48 hours. Procedures Date of Service Date of Service: 03/17/25 Assessment & Plan Assessment and plan (1) VERENA (acute kidney injury): Status: Acute Plan VERENA likely ATN from lisinopril and high-dose diuretic use in setting of hypovolemia creatinine has been gradually improvement, anticipate continued improvement with time recommend continuing to hold lisinopril until creatinine returns to baseline recommend avoiding nephrotoxins low sodium diet, fluid restriction 1.5L/24 hours continue supportive care patient is ok to discharge from a renal standpoint given creatinine stable/trending down. Will arrange for outpatient nephrology follow up upon discharge. Discussed with Dr Mahajan Time Spent With Patient Time: Total time managing care of this patient today ____ minutes. Progress Note: Quality Stroke Does the patient have a stroke diagnosis?: No
[2025-03-17 11:16] LABS: Glucose, Whole Blood 192 mg/dL (60-115)
--- NOTE | 2025-03-17 14:46 | MHC.CM.PN ---
Addendum entered by Svitlana Lion 03/18/25 12:46: CM CALLED PTS DAUGHTER, ALEKS [phone] TO DISCUSS DCP SHE WAS INFORMED THE ACUTE REHABS ARE UNABLE TO OFFER PT DOES NOT QUALIFY CURRENT BED OFFERS REVIEWED: [facility] AND COLBY AT [place] SHE WILL SPEAK WITH FAMILY AND GET BACK TO CM Original Note: CM MET WITH PTS DAUGHTER AT BEDSIDE, SHE REPORTS PT WAS IN [place] AND ENDED UP IN THE HOSPITAL THERE. PTS INSURANCE INITIALLY DENIED AUTH FOR ACUTE, BUT AFTER AN APPEAL THEY APPROVED IT, HOWEVER FAMILY DECIDED THEY WOULD PREFER TO BRING PT HOME. PT WAS HOME FOR APPROX A WEEK AND HAS HAD A FALL. DAUGHTER REQUESTS A REFERRAL TO ACUTE REHAB, LATEST PT EVAL SUPPORTS THAT LOC. REFERRALS MADE
--- NOTE | 2025-03-17 15:27 | P.EN_ITS ---
Event Note Date of Service: 03/17/25 Event Note: Patient was noted to be hypotensive, and RN informed me 88/44, without tachycardia. Afebrile, and I believe that this is likely in the setting of poor oral intake given his ongoing medical comorbidities leading to prerenal VERENA, yet to recover. Hence I am initiating IV fluid resuscitation with NS at 100 cc an hour. If the patient becomes short of breath or HOANG, DC fluids and check chest x-ray for any pulmonary edema. Patient is not anuric, patient was not or thostatic this a.m. Prognosis guarded MRI to be done outpatient Time Spent With Patient Time: Total time managing care of this patient today ____ minutes.
[2025-03-17 16:15] LABS: Glucose, Whole Blood 170 mg/dL (60-115)
--- NOTE | 2025-03-17 17:32 | PC.NURSE ---
Addendum entered by Chiqui Alonso RN 03/17/25 18:08: BP recheck at 1744 90/68, per if pt asymptomatic continue iv fluids as ordered Original Note: Md Stoner notified at 1522 that pts BP was 88/44 manually. pt asymptomatic at this time. per iv fluid 100ml an hour initiated. BP rechecked at 1638 88/44 manually. pt continues to be asymptomatic
[2025-03-17 20:36] LABS: Glucose, Whole Blood 172 mg/dL (60-115)
[2025-03-18] VITALS (8 sets, daily range): BP systolic 91–124; BP diastolic 54–62; PULSE 57–99; RESP 17–20; TEMP 35.7–36.4; O2SAT 97–98
[2025-03-18 06:20] LABS: MANUAL DIFF FLAG NO
[2025-03-18 06:49] LABS: Alanine Aminotransferase < 6 U/L (0-40); Albumin Level 2.8 g/dL (3.5-5.0); Alkaline Phosphatase 85 U/L (39-117); Anion Gap 12 (12-20); Aspartate Amino Transferase 14 U/L (5-37); Blood Urea Nitrogen 53 mg/dL (9-16); Calcium 8.3 mg/dL (8.4-10.2); Carbon Dioxide 23 mmol/L (22-29); Chloride 105 mmol/L (96-108); Creatinine Clr Calc Pharmacy 35.3; Estimated Glomerular Filt Rate 33; Hematocrit 25.2 % (42.0-52.0); Hemoglobin 8.2 g/dl (14.0-18.0); Imm Gran Abs Auto 0.05 X10*3/uL (0.00-0.03); Imm Gran Pct Auto 1.2 % (0.0-0.4); Lymphocytes Absolute Auto 0.8 X10*3/uL (1.2-4.9); Mean Corpuscular HGB Conc 32.5 g/dl (31.0-36.0); Mean Corpuscular Hemoglobin 28.4 pg (27.0-33.0); Mean Corpuscular Volume 87.2 fL (80.0-98.0); NRBC Abs Auto 0.000 X10*3/uL (0.0-0.012); NRBC Pct Auto 0.0 /100WBC (0.0-0.2); Platelet Count 120 X10*3/uL (160-400); Potassium 4.1 mmol/L (3.3-5.1); Red Blood Count 2.89 X10*6/uL (4.60-5.80); Sodium 136 mmol/L (135-145); Total Protein 4.9 g/dL (6.5-8.0); White Blood Count 4.3 X10*3/uL (4.8-10.8)
--- NOTE | 2025-03-18 07:18 | P.PNIM_ITS ---
Subjective Subjective Date of Service: 03/18/25 Interval History: appears hemodynamically stable we will discontinue IV fluids non orthostatic Review of Systems Review of Systems: Yes all other systems are reviewed and are negative Physical Exam 2 Exam: Exam: General: AOx3, no acute distress Resp: CTA bilaterally CVS: S1, S2, RRR GI: +BS, NT, no distention Extremities: Left upper extremity less swollen with symptomatic management Psych: Anxious affect Vital Signs: Vital Signs: Last Vital Signs Temp 97.6 F 03/18/25 03:13 Pulse 71 03/18/25 03:13 Resp 17 03/18/25 03:13 BP 118/58 L 03/18/25 03:13 Pulse Ox 97 03/18/25 03:13 O2 Del Method Room Air 03/18/25 03:13 BMI result Body Mass Index 31.9 Objective Data Active Medications Acetaminophen (Acetaminophen 325 Mg Tablet) 975 mg PO Q8H [facility] Last Admin: 03/17/25 23:35 Dose: 975 mg Documented By: MANDEEP Alprazolam (Alprazolam 0.5 Mg Tablet) 0.5 mg PO Q8H PRN PRN Reason: Anxiety Apixaban (Apixaban 2.5 Mg Tablet) 2.5 mg PO BID [facility] Last Admin: 03/17/25 20:52 Dose: 2.5 mg Documented By: MANDEEP Aspirin (Aspirin 81 Mg Tab.Chew) 81 mg PO DAILY [facility] Last Admin: 03/17/25 08:34 Dose: 81 mg Documented By: KEAGAN Atorvastatin Calcium (Atorvastatin Calcium 40 Mg Tablet) 40 mg PO BEDTIME [facility] Last Admin: 03/17/25 20:51 Dose: 40 mg Documented By: MANDEEP Bisacodyl (Bisacodyl 5 Mg Tablet.Dr) 5 mg PO BEDTIME PRN PRN Reason: Constipation Calcium Carbonate (Calcium Carbonate 750 Mg Tab.Chew) 750 mg PO Q4H PRN PRN Reason: Heartburn Dextrose (Dextrose 50 % 25 Gm/50 Ml Syringe) 25 gm IVPUSH Q15M PRN; Protocol PRN Reason: per Hypoglycemia Standing Ord. Doxazosin Mesylate (Doxazosin Mesylate 1 Mg Tablet) 1 mg PO BEDTIME [facility]; Protocol Last Admin: 03/17/25 20:52 Dose: 1 mg Documented By: MANDEEP Glucose (Glucose Gel 15 Gm Gel..Gram.) 15 gm PO Q15M PRN; Protocol PRN Reason: per Hypoglycemia Standing Ord. Sodium Chloride (Ns) 1,000 mls @ 100 mls/hr IVCONT .Q10H [facility] Last Admin: 03/18/25 01:04 Dose: 100 mls/hr Documented By: MANDEEP Insulin Human Lispro (Insulin Lispro 100 Unit/Ml 3 Ml Vial) 0 unit SUBCUT QIDACHS [facility]; Protocol Last Admin: 03/17/25 20:50 Dose: 2 unit Documented By: MANDEEP Lidocaine (Lidocaine 4 % Patch Adh..Patch) 1 patch TRANSDERMA DAILY [facility]; Protocol Last Admin: 03/17/25 08:40 Dose: 1 patch Documented By: KEAGAN Melatonin (Melatonin 3 Mg Tablet) 6 mg PO BEDTIME PRN PRN Reason: Insomnia Metoprolol Tartrate (Metoprolol Tartrate 25 Mg Tablet) 25 mg PO BID [facility]; Protocol Last Admin: 03/17/25 20:51 Dose: 25 mg Documented By: MANDEEP Morphine Sulfate (Morphine Sulfate Er 15 Mg Tablet.Er) 15 mg PO Q8H PRN PRN Reason: Breakthrough Pain Last Admin: 03/16/25 17:44 Dose: 15 mg Documented By: MELISSA Ondansetron HCl (Ondansetron Hcl 4 Mg/2 Ml Vial) 4 mg IVPUSH Q8H PRN PRN Reason: Nausea and Vomiting Oxycodone HCl (Oxycodone Hcl Immed Release 5 Mg Tablet) 5 mg PO Q6H PRN PRN Reason: Pain moderate Polyethylene Glycol (Polyethylene Glycol 3350 17 Gm Powd.Pack) 17 gm PO DAILY PRN PRN Reason: Constipation Senna (Sennosides 8.6 Mg Tablet) 8.6 mg PO DAILY PRN PRN Reason: Constipation Sodium Chloride (0.9 % Sodium Chloride Flush 3 Ml Syringe) 3 ml IVFLUSH QSHIFT [facility] Last Admin: 03/17/25 23:39 Dose: Not Given Documented By: MANDEEP Non-Admin Reason: IV Running Labs 03/18/25 06:03 03/18/25 06:03 Labs: Laboratory Results - last 24 hr 03/17/25 03/17/25 03/17/25 07:27 11:13 16:12 MCV MCH MCHC RDW Plt Count MPV Immature Gran % (Auto) Neut % (Auto) Lymph % (Auto) [place] % (Auto) Eos % (Auto) Baso % (Auto) Lymph # (Auto) [place] # (Auto) Eos # (Auto) Baso # (Auto) Abs Immat Gran (auto) Absolute Neuts (auto) Absolute Nucleated RBC Nucleated RBC % (auto) Anion Gap Estim Creat Clear Calc Estimated GFR POC Glucose 112 192 H 170 H Random Glucose Calcium Total Bilirubin AST ALT Alkaline Phosphatase Total Protein Albumin 03/17/25 03/18/25 20:33 06:03 MCV 87.2 MCH 28.4 MCHC 32.5 RDW 21.2 H Plt Count 120 L MPV Not Reportable Immature Gran % (Auto) 1.2 H Neut % (Auto) 69.0 Lymph % (Auto) 19.5 L [place] % (Auto) 6.1 Eos % (Auto) 3.3 Baso % (Auto) 0.9 Lymph # (Auto) 0.8 L [place] # (Auto) 0.3 Eos # (Auto) 0.1 Baso # (Auto) 0.0 Abs Immat Gran (auto) 0.05 H Absolute Neuts (auto) 2.9 Absolute Nucleated RBC 0.000 Nucleated RBC % (auto) 0.0 Anion Gap 12 Estim Creat Clear Calc 35.3 Estimated GFR 33 POC Glucose 172 H Random Glucose 116 H Calcium 8.3 L Total Bilirubin 0.5 AST 14 ALT < 6 Alkaline Phosphatase 85 Total Protein 4.9 L Albumin 2.8 L Assessment and Plan (1) Acute kidney failure: Status: Acute Plan Patient is a 79yo M with AF on apixaban, HTN, HFrEF (LVEF 40-45%), HLD with recent 36-day hospitalization at [facility] in [facility] for respiratory failure/pulmonary edema/CHF exacerbation during which he was intubated twice presenting after a fall and found to have VERENA likely secondary to aggressive diuresis ( the records from [facility]. His Cr peaked at 1.71 and was discharged on 03/03 with SCr 1.21. Discharge medications were listed as bumetanide 1 mg bid and metolazone 2.5 mg bid). VERENA likely diuresis/diuretics not yet back to his baseline Likely in the setting of excess diuresis/diuretics. Which have since been held on admission. Currently not yet back to his baseline, however we will be closely followed outpatient by Nephrology. Patient has his diuretics and lisinopril discontinued as he remains euvolemic and hypotensive Possible left shoulder tear severe arthritis MRI to be done outpatient as per policy/insurance PT while inpatient and outpatient brief episode of hypotension Likely in the setting of dietary intake, patient responded well with fluid supplementation. Discontinued BPH meds Chronic/prior T12 compression fracture - continue lidocaine patch ground-glass opacities in lung - Suspect residual from recent respiratory failure, currently not hypoxic and without cough or dyspnea, continue to monitor lactic acidosis, acute-resolved upon holding metformin - Suspect MTF effect, no septic; d/c MTF given VERENA chronic HFrEF - Continue metoprolol tartrate; holding bumetanide, lisinopril, metolazone - TTE 03/14: 1. Xsxv-[id number] LV systolic dysfunction with LVEF of 40-45% with moderate increase in left ventricular wall thickness 2. Severely dilated left atrium 3. Calcific aortic valve changes noted with overall normal cardiac valvular Dopplers 4. Normal RV systolic pressure with mildly elevated right atrial pressures 5. Mildly dilated ascending aorta at 3.7 cm 6. No gross pericardial effusion - Pt of Dr Keller at [facility]; consult was supposed to be 03/17, we will likely need to be rescheduled at a later date upon discharge chronic AF - continue apixaban, metoprolol tartrate HLD - statin, ASA DM2 - hold MTF; correction-dose lispro BPH -hold/stop doxazosin, tamsulosin as the patient is hypotensive into the SBP 80s VTE ppx - apixaban, renally dosed dispo - PT eval: STR recommended Medically stable, awaiting insurance authorization and bed availability This note is constructed using voice recognition software. While every effort has been made to ensure accuracy, handle sander operator errors may have been included. Total time managing care of this patient today: 35 minutes. Quality Stroke Does the patient have a stroke diagnosis?: No VTE Prior VTE?: No VTE Risk Level:: Medical - moderate - high VTE Device Contraindication: Treatment Not Indicated VTE Drug Contraindication: N/A - Med Ordered
[2025-03-18 07:21] LABS: Glucose, Whole Blood 99 mg/dL (60-115)
[2025-03-18] MEDS: Lidocaine 4 % Patch ADH..PATCH 1 PATCH TRANSDERMA (07:54)
[2025-03-18] MEDS: Morphine Sulfate ER 15 MG TABLET.ER PO (08:02)
[2025-03-18 11:24] LABS: Glucose, Whole Blood 171 mg/dL (60-115)
[2025-03-18 16:03] LABS: Glucose, Whole Blood 141 mg/dL (60-115)
--- NOTE | 2025-03-18 16:21 | PM.EVENT ---
Event Note Date of Service: 03/18/25 Event Note: Patient is an 79-year-old male who was admitted to the hospital for treatment of acute kidney injury Patient did experience a fall on 03/13/2025, began to experience significant left shoulder pain after this X-rays taken in the emergency department reveal significant arthritis, with high-riding humeral head, but no evidence of fracture or acute bony abnormality Patient should continue working with PT/OT while in the hospital No acute orthopedic intervention indicated for internal derangement of left shoulder Patient may follow-up with our office outpatient upon discharge Time Spent With Patient Time: Total time managing care of this patient today ____ minutes.
[2025-03-18] MEDS: 0.9 % Sodium Chloride Flush 3 ML SYRINGE IVFLUSH (16:43)
[2025-03-18 21:07] LABS: Glucose, Whole Blood 166 mg/dL (60-115)
[2025-03-19] MEDS: 0.9 % Sodium Chloride Flush 3 ML SYRINGE IVFLUSH ×3 (01:26→16:46)
[2025-03-19 03:35] VITALS: BP 117/58; PULSE 66; RESP 18; TEMP 36; O2SAT 99
[2025-03-19 05:51] LABS: MANUAL DIFF FLAG NO
[2025-03-19 06:16] LABS: Alanine Aminotransferase < 6 U/L (0-40); Albumin Level 3.0 g/dL (3.5-5.0); Alkaline Phosphatase 95 U/L (39-117); Anion Gap 12 (12-20); Aspartate Amino Transferase 10 U/L (5-37); Blood Urea Nitrogen 46 mg/dL (9-16); Calcium 8.8 mg/dL (8.4-10.2); Carbon Dioxide 22 mmol/L (22-29); Chloride 107 mmol/L (96-108); Creatinine Clr Calc Pharmacy 37.4; Estimated Glomerular Filt Rate 35; Potassium 4.4 mmol/L (3.3-5.1); Sodium 137 mmol/L (135-145); Total Protein 5.2 g/dL (6.5-8.0)
[2025-03-19 06:18] LABS: Hematocrit 27.6 % (42.0-52.0); Hemoglobin 9.1 g/dl (14.0-18.0); Imm Gran Abs Auto 0.04 X10*3/uL (0.00-0.03); Imm Gran Pct Auto 0.9 % (0.0-0.4); Lymphocytes Absolute Auto 0.9 X10*3/uL (1.2-4.9); Mean Corpuscular HGB Conc 33.0 g/dl (31.0-36.0); Mean Corpuscular Hemoglobin 28.8 pg (27.0-33.0); Mean Corpuscular Volume 87.3 fL (80.0-98.0); NRBC Abs Auto 0.000 X10*3/uL (0.0-0.012); NRBC Pct Auto 0.0 /100WBC (0.0-0.2); Platelet Count 120 X10*3/uL (160-400); Red Blood Count 3.16 X10*6/uL (4.60-5.80); White Blood Count 4.7 X10*3/uL (4.8-10.8)
[2025-03-19 07:33] VITALS: BP 125/58; PULSE 70; RESP 16; TEMP 36.2; O2SAT 100
[2025-03-19 07:45] LABS: Glucose, Whole Blood 98 mg/dL (60-115)
[2025-03-19] MEDS: Lidocaine 4 % Patch ADH..PATCH 1 PATCH TRANSDERMA (07:49)
--- NOTE | 2025-03-19 07:57 | P.PNIM_ITS ---
Subjective Subjective Date of Service: 03/19/25 Interval History: Patient appears to have some relief in his left shoulder pain Orthopedics consulted Son was in the room and updated him Patient's blood pressure appears to be hemodynamically stable now Review of Systems Review of Systems: Yes all other systems are reviewed and are negative Physical Exam 2 Exam: Exam: General: AOx3, no acute distress Resp: CTA bilaterally CVS: S1, S2, RRR GI: +BS, NT, no distention Extremities: Left upper extremity less swollen with symptomatic management Psych: Anxious affect Vital Signs: Vital Signs: Last Vital Signs Temp 97.1 F 03/19/25 07:33 Pulse 70 03/19/25 07:33 Resp 16 03/19/25 07:33 BP 125/58 L 03/19/25 07:33 Pulse Ox 100 03/19/25 07:33 O2 Del Method Room Air 03/19/25 07:33 BMI result Body Mass Index 31.9 Objective Data Active Medications Acetaminophen (Acetaminophen 325 Mg Tablet) 975 mg PO Q8H [facility] Last Admin: 03/19/25 07:48 Dose: 975 mg Documented By: STEFFI Apixaban (Apixaban 2.5 Mg Tablet) 2.5 mg PO BID [facility] Last Admin: 03/19/25 07:49 Dose: 2.5 mg Documented By: STEFFI Aspirin (Aspirin 81 Mg Tab.Chew) 81 mg PO DAILY [facility] Last Admin: 03/19/25 07:48 Dose: 81 mg Documented By: STEFFI Atorvastatin Calcium (Atorvastatin Calcium 40 Mg Tablet) 40 mg PO BEDTIME [facility] Last Admin: 03/18/25 21:16 Dose: 40 mg Documented By: TUMASY Bisacodyl (Bisacodyl 5 Mg Tablet.Dr) 5 mg PO BEDTIME PRN PRN Reason: Constipation Calcium Carbonate (Calcium Carbonate 750 Mg Tab.Chew) 750 mg PO Q4H PRN PRN Reason: Heartburn Dextrose (Dextrose 50 % 25 Gm/50 Ml Syringe) 25 gm IVPUSH Q15M PRN; Protocol PRN Reason: per Hypoglycemia Standing Ord. Glucose (Glucose Gel 15 Gm Gel..Gram.) 15 gm PO Q15M PRN; Protocol PRN Reason: per Hypoglycemia Standing Ord. Insulin Human Lispro (Insulin Lispro 100 Unit/Ml 3 Ml Vial) 0 unit SUBCUT QIDACHS [facility]; Protocol Last Admin: 03/19/25 07:46 Dose: Not Given Documented By: STEFFI Non-Admin Reason: No Insulin Coverage Lidocaine (Lidocaine 4 % Patch Adh..Patch) 1 patch TRANSDERMA DAILY [facility]; Protocol Last Admin: 03/19/25 07:49 Dose: 1 patch Documented By: STEFFI Melatonin (Melatonin 3 Mg Tablet) 6 mg PO BEDTIME PRN PRN Reason: Insomnia Morphine Sulfate (Morphine Sulfate Er 15 Mg Tablet.Er) 15 mg PO Q8H PRN PRN Reason: Breakthrough Pain Last Admin: 03/18/25 08:02 Dose: 15 mg Documented By: KEAGAN Ondansetron HCl (Ondansetron Hcl 4 Mg/2 Ml Vial) 4 mg IVPUSH Q8H PRN PRN Reason: Nausea and Vomiting Polyethylene Glycol (Polyethylene Glycol 3350 17 Gm Powd.Pack) 17 gm PO DAILY PRN PRN Reason: Constipation Last Admin: 03/18/25 11:48 Dose: 17 gm Documented By: KEAGAN Senna (Sennosides 8.6 Mg Tablet) 8.6 mg PO DAILY PRN PRN Reason: Constipation Last Admin: 03/18/25 11:48 Dose: 8.6 mg Documented By: KEAGAN Sodium Chloride (0.9 % Sodium Chloride Flush 3 Ml Syringe) [facility] Last Admin: 03/19/25 07:49 Dose: 3 ml Documented By: STEFFI Labs 03/19/25 05:28 03/19/25 05:28 Labs: Laboratory Results - last 24 hr 03/18/25 03/18/25 03/18/25 11:19 15:55 20:56 MCV MCH MCHC RDW Plt Count MPV Immature Gran % (Auto) Neut % (Auto) Lymph % (Auto) [place] % (Auto) Eos % (Auto) Baso % (Auto) Lymph # (Auto) [place] # (Auto) Eos # (Auto) Baso # (Auto) Abs Immat Gran (auto) Absolute Neuts (auto) Absolute Nucleated RBC Nucleated RBC % (auto) Anion Gap Estim Creat Clear Calc Estimated GFR POC Glucose 171 H 141 H 166 H Random Glucose Calcium Total Bilirubin AST ALT Alkaline Phosphatase Total Protein Albumin 03/19/25 03/19/25 05:28 07:41 MCV 87.3 MCH 28.8 MCHC 33.0 RDW 21.2 H Plt Count 120 L MPV Not Reportable Immature Gran % (Auto) 0.9 H Neut % (Auto) 68.8 Lymph % (Auto) 19.4 L [place] % (Auto) 6.4 Eos % (Auto) 3.6 Baso % (Auto) 0.9 Lymph # (Auto) 0.9 L [place] # (Auto) 0.3 Eos # (Auto) 0.2 Baso # (Auto) 0.0 Abs Immat Gran (auto) 0.04 H Absolute Neuts (auto) 3.2 Absolute Nucleated RBC 0.000 Nucleated RBC % (auto) 0.0 Anion Gap 12 Estim Creat Clear Calc 37.4 Estimated GFR 35 POC Glucose 98 Random Glucose 123 H Calcium 8.8 D Total Bilirubin 0.5 AST 10 ALT < 6 Alkaline Phosphatase 95 Total Protein 5.2 L Albumin 3.0 L Microbiology Microbiology Results: Microbiology 03/13/25 12:08 Blood Culture - Final Blood - Venous No growth after 5 days. 03/13/25 12:08 Blood Culture - Final Blood - Venous No growth after 5 days. Assessment and Plan (1) Acute kidney failure: Status: Acute Plan Patient is a 79yo M with AF on apixaban, HTN, HFrEF (LVEF 40-45%), HLD with recent 36-day hospitalization at [facility] in [facility] for respiratory failure/pulmonary edema/CHF exacerbation during which he was intubated twice presenting after a fall and found to have VERENA likely secondary to aggressive diuresis ( the records from [facility]. His Cr peaked at 1.71 and was discharged on 03/03 with SCr 1.21. Discharge medications were listed as bumetanide 1 mg bid and metolazone 2.5 mg bid). Continue awaiting bed for insurance auth. VERENA likely diuresis/diuretics not yet back to his baseline Likely in the setting of excess diuresis/diuretics. Which have since been held on admission. Currently not yet back to his baseline, however we will be closely followed outpatient by Nephrology. Patient has his diuretics and lisinopril discontinued as he remains euvolemic with occasional hypotensive episodes responding to fluid hydration and Possible left shoulder tear severe arthritis severe L shoulder pain - MSK in etiology MRI to be done outpatient as per policy/insurance PT while inpatient and outpatient brief episode of hypotension Likely in the setting of dietary intake, patient responded well with fluid supplementation. Discontinued BPH meds Chronic/prior T12 compression fracture -NV intact - continue lidocaine patch PT/OT ground-glass opacities in lung - Suspect residual from recent respiratory failure, currently not hypoxic and without cough or dyspnea, continue to monitor lactic acidosis, acute-resolved upon holding metformin - Suspect MTF effect, no septic; d/c MTF given VERENA chronic HFrEF - Continue metoprolol tartrate; holding bumetanide, lisinopril, metolazone - TTE 03/14: 1. [place]aug-lo-lmmoleiw LV systolic dysfunction with LVEF of 40-45% with moderate increase in left ventricular wall thickness 2. Severely dilated left atrium 3. Calcific aortic valve changes noted with overall normal cardiac valvular Dopplers 4. Normal RV systolic pressure with mildly elevated right atrial pressures 5. Mildly dilated ascending aorta at 3.7 cm 6. No gross pericardial effusion - Pt of Dr Keller at [facility] Card[facility]; consult was supposed to be 03/17, we will likely need to be rescheduled at a later date upon discharge chronic AF - continue apixaban, metoprolol tartrate HLD - statin, ASA DM2 - hold MTF; correction-dose lispro BPH -hold/stop doxazosin, tamsulosin as the patient is hypotensive into the SBP 80s VTE ppx - apixaban, renally dosed dispo - PT eval: STR recommended Medically stable, awaiting insurance authorization and bed availability This note is constructed using voice recognition software. While every effort has been made to ensure accuracy, hvac controls technician errors may have been included. Total time managing care of this patient today: 35 minutes. Quality Stroke Does the patient have a stroke diagnosis?: No VTE Prior VTE?: No VTE Risk Level:: Medical - moderate - high VTE Device Contraindication: Treatment Not Indicated VTE Drug Contraindication: N/A - Med Ordered
[2025-03-19 11:37] LABS: Glucose, Whole Blood 192 mg/dL (60-115)
--- NOTE | 2025-03-19 13:32 | MHC.CM.PN ---
EMR REVIEWED AND PER MD ROUNDS, PT IS MEDICALLY CLEARED FOR DC TO STR ONCE INSURANCE AUTH IS OBTAINED. ROSA ISELA GREGORY HAS SUBMITTED FOR AUTH, CM AWAITS APPROVAL. CM WILL CONTINUE TO FOLLOW.
[2025-03-19 15:50] VITALS: BP 110/58; PULSE 81; RESP 20; TEMP 36.2; O2SAT 100
[2025-03-19 16:11] LABS: Glucose, Whole Blood 165 mg/dL (60-115)
[2025-03-19 19:54] VITALS: BP 102/54; PULSE 82; RESP 19; TEMP 36; O2SAT 96
[2025-03-19 20:11] LABS: Glucose, Whole Blood 127 mg/dL (60-115)
--- NOTE | 2025-03-19 22:30 | PC.NURSE ---
Pt lost IV access d/t being caught to gown while transferring back into bed. This RN attempted once to get IV access. Pt refused another attempt at IV access with ammonium sulfate operator. MD Jacobs notified. Okay for no more attempts at this time. Pt has no NANCY IV antibiotics, pt takes PO medications with no issues. Pt will be discharge soon to STR. Will continue to monitor.
[2025-03-20 03:28] VITALS: BP 106/53; PULSE 75; RESP 16; TEMP 36.2; O2SAT 97
[2025-03-20 06:08] LABS: Mean Corpuscular HGB Conc 33.5 g/dl (31.0-36.0); NRBC Abs Auto 0.000 X10*3/uL (0.0-0.012); NRBC Pct Auto 0.0 /100WBC (0.0-0.2); SCAN SMEAR FLAG 1
[2025-03-20 06:10] LABS: Hematocrit 25.4 % (42.0-52.0); Hemoglobin 8.5 g/dl (14.0-18.0); Imm Gran Abs Auto 0.02 X10*3/uL (0.00-0.03); Imm Gran Pct Auto 0.4 % (0.0-0.4); Lymphocytes Absolute Auto 0.9 X10*3/uL (1.2-4.9); MANUAL DIFF FLAG SCAN; Mean Corpuscular Hemoglobin 29.0 pg (27.0-33.0); Mean Corpuscular Volume 86.7 fL (80.0-98.0); PLT CLUMP 1; Red Blood Count 2.93 X10*6/uL (4.60-5.80)
[2025-03-20 06:12] LABS: PLT ABN DIST 1; White Blood Count 4.5 X10*3/uL (4.8-10.8)
[2025-03-20 06:29] LABS: Alanine Aminotransferase < 6 U/L (0-40); Albumin Level 2.9 g/dL (3.5-5.0); Alkaline Phosphatase 96 U/L (39-117); Anion Gap 11 (12-20); Aspartate Amino Transferase 12 U/L (5-37); Blood Urea Nitrogen 48 mg/dL (9-16); Calcium 8.4 mg/dL (8.4-10.2); Carbon Dioxide 24 mmol/L (22-29); Chloride 107 mmol/L (96-108); Creatinine Clr Calc Pharmacy 39.1; Estimated Glomerular Filt Rate 37; Potassium 4.4 mmol/L (3.3-5.1); Sodium 138 mmol/L (135-145); Total Protein 5.2 g/dL (6.5-8.0)
[2025-03-20 06:37] LABS: Platelet Count 117 X10*3/uL (160-400)
[2025-03-20 07:54] LABS: Glucose, Whole Blood 112 mg/dL (60-115)
--- NOTE | 2025-03-20 07:59 | P.PNIM_ITS ---
Subjective Subjective Date of Service: 03/20/25 Physical Exam 2 Vital Signs: Vital Signs: Last Vital Signs Temp 97.1 F 03/20/25 03:28 Pulse 75 03/20/25 03:28 Resp 16 03/20/25 03:28 BP 106/53 L 03/20/25 03:28 Pulse Ox 97 03/20/25 03:28 O2 Del Method Room Air 03/20/25 03:28 BMI result Body Mass Index 31.9 Objective Data Active Medications Acetaminophen (Acetaminophen 325 Mg Tablet) 975 mg PO Q8H [facility] Last Admin: 03/19/25 23:22 Dose: 975 mg Documented By: EVETTE Apixaban (Apixaban 2.5 Mg Tablet) 2.5 mg PO BID [facility] Last Admin: 03/19/25 21:49 Dose: 2.5 mg Documented By: EVETTE Aspirin (Aspirin 81 Mg Tab.Chew) 81 mg PO DAILY [facility] Last Admin: 03/19/25 07:48 Dose: 81 mg Documented By: STEFFI Atorvastatin Calcium (Atorvastatin Calcium 40 Mg Tablet) 40 mg PO BEDTIME [facility] Last Admin: 03/19/25 21:49 Dose: 40 mg Documented By: EVETTE Bisacodyl (Bisacodyl 5 Mg Tablet.Dr) 5 mg PO BEDTIME PRN PRN Reason: Constipation Calcium Carbonate (Calcium Carbonate 750 Mg Tab.Chew) 750 mg PO Q4H PRN PRN Reason: Heartburn Dextrose (Dextrose 50 % 25 Gm/50 Ml Syringe) 25 gm IVPUSH Q15M PRN; Protocol PRN Reason: per Hypoglycemia Standing Ord. Glucose (Glucose Gel 15 Gm Gel..Gram.) 15 gm PO Q15M PRN; Protocol PRN Reason: per Hypoglycemia Standing Ord. Insulin Human Lispro (Insulin Lispro 100 Unit/Ml 3 Ml Vial) 0 unit SUBCUT QIDACHS [facility]; Protocol Last Admin: 03/19/25 21:44 Dose: Not Given Documented By: EVETTE Non-Admin Reason: No Insulin Coverage Lidocaine (Lidocaine 4 % Patch Adh..Patch) 1 patch TRANSDERMA DAILY [facility]; Protocol Last Admin: 03/19/25 07:49 Dose: 1 patch Documented By: STEFFI Melatonin (Melatonin 3 Mg Tablet) 6 mg PO BEDTIME PRN PRN Reason: Insomnia Morphine Sulfate (Morphine Sulfate Er 15 Mg Tablet.Er) 15 mg PO Q8H PRN PRN Reason: Breakthrough Pain Last Admin: 03/18/25 08:02 Dose: 15 mg Documented By: KEAGAN Ondansetron HCl (Ondansetron Hcl 4 Mg/2 Ml Vial) 4 mg IVPUSH Q8H PRN PRN Reason: Nausea and Vomiting Polyethylene Glycol (Polyethylene Glycol 3350 17 Gm Powd.Pack) 17 gm PO DAILY PRN PRN Reason: Constipation Last Admin: 03/18/25 11:48 Dose: 17 gm Documented By: KEAGAN Senna (Sennosides 8.6 Mg Tablet) 8.6 mg PO DAILY PRN PRN Reason: Constipation Last Admin: 03/18/25 11:48 Dose: 8.6 mg Documented By: KEAGAN Sodium Chloride (0.9 % Sodium Chloride Flush 3 Ml Syringe) 3 ml IVFLUSH QSHIFT [facility] Last Admin: 03/20/25 00:10 Dose: Not Given Documented By: EVETTE Non-Admin Reason: NO IV access, aware Labs 03/20/25 05:20 03/20/25 05:20 Labs: Laboratory Results - last 24 hr 03/19/25 03/19/25 03/19/25 11:29 16:04 20:02 MCV MCH MCHC RDW Plt Count MPV Immature Gran % (Auto) Neut % (Auto) Lymph % (Auto) [place] % (Auto) Eos % (Auto) Baso % (Auto) Lymph # (Auto) [place] # (Auto) Eos # (Auto) Baso # (Auto) Abs Immat Gran (auto) Absolute Neuts (auto) Absolute Nucleated RBC Nucleated RBC % (auto) Smear Tech's Comments Anion Gap Estim Creat Clear Calc Estimated GFR POC Glucose 192 H 165 H 127 H Random Glucose Calcium Total Bilirubin AST ALT Alkaline Phosphatase Total Protein Albumin 03/20/25 03/20/25 05:20 07:50 MCV 86.7 MCH 29.0 MCHC 33.5 RDW 21.4 H Plt Count 117 L MPV Not Reportable Immature Gran % (Auto) 0.4 Neut % (Auto) 68.2 Lymph % (Auto) 19.7 L [place] % (Auto) 7.3 Eos % (Auto) 3.3 Baso % (Auto) 1.1 Lymph # (Auto) 0.9 L [place] # (Auto) 0.3 Eos # (Auto) 0.2 Baso # (Auto) 0.1 Abs Immat Gran (auto) 0.02 Absolute Neuts (auto) 3.1 Absolute Nucleated RBC 0.000 Nucleated RBC % (auto) 0.0 Smear Tech's Comments VERIFIED Anion Gap 11 L Estim Creat Clear Calc 39.1 Estimated GFR 37 POC Glucose 112 Random Glucose 148 H Calcium 8.4 Total Bilirubin 0.5 AST 12 ALT < 6 Alkaline Phosphatase 96 Total Protein 5.2 L Albumin 2.9 L Quality Stroke Does the patient have a stroke diagnosis?: No VTE Prior VTE?: No VTE Risk Level:: Medical - moderate - high VTE Device Contraindication: Treatment Not Indicated VTE Drug Contraindication: N/A - Med Ordered
[2025-03-20 08:00] VITALS: BP 129/58; PULSE 88; RESP 18; TEMP 36.7; O2SAT 97
[2025-03-20] MEDS: Lidocaine 4 % Patch ADH..PATCH 1 PATCH TRANSDERMA (08:13)
--- NOTE | 2025-03-20 08:27 | PM.EVENT ---
Event Note Date of Service: 03/20/25 Event Note: Called P2P at 8.30am on [phone] option 5, for his STR which he has been waiting for a while. It has been deemded that the pt doesnt Time Spent With Patient Time: Total time managing care of this patient today ____ minutes.
--- NOTE | 2025-03-20 11:07 | MHC.CM.PN ---
Addendum entered by Amena Mitchell 03/20/25 14:33: DP: PT HAS BEEN MEDICALLY CLEARED FOR DC HOME WITH NEW [facility] (THEY ARE ABLE TO SEE SOONER THAN [facility] FOR P.T.) AND PT IN AGREEMENT WITH PLAN. DAUGHTER WILL TRANSPORT HOME. Original Note: DP: PT HAS BEEN DENIED FOR STR BY INSURANCE, P2P REVIEW DONE AND DECISION NOT WAS NOT OVERTURNED. DAUGHTER ALEKS(HCP)/PT UPDATED. NEW PLAN: PT WILL DC HOME WITH NEW [facility] FOR SN,OT AND PT. FAMILY WILL PROVIDE EXTRA SUPPORT. FINAL IMM ISSUED.
[2025-03-20 11:35] LABS: Glucose, Whole Blood 227 mg/dL (60-115)
--- NOTE | 2025-03-20 14:20 | P.F2F_ITS ---
Service Date Service Date: 03/20/25 Encounter Date of encounter: 03/20/25 Reasons for Services Signs and symptoms assessed: Significant deconditioning Reason for physical therapy: home safety and mobility, therapeutic exercises, restore joint function, gait/transfer training, assess need for DME, ADL training, energy conservation and other Reason for occupational therapy: home safety and mobility, therapeutic exercises, restore joint function, gait/transfer training, assess need for DME, ADL training, energy conservation and other Homebound: Leaving the home is medically contraindicated at this time without the asist of a device and/or another person due th the listed conditions above and below. Reason homebound: unsteady gait / fall risk, fall risk related to blood pressure changes, leg weakness, bedbound/chairbound, shortness of breath with minimal effort, pain with ambulation, pain with transfers, poor balance / fall risk, shortness of breath at rest, immunosuppression / infection risk, psychologically impaired / unsafe, cognitively impaired / unsafe, weakness related to hospital stay, non-weight bearing, unable to drive, legally blind and other Certification: Based on the above findings, I certify that this patient is confined to the home and needs intermittent care home care, physical therapy and/or speech therapy, or continues to need occupational therapy. The patient is under my care, and I have initiated the establishment of the plan of care. The patient will be followed by a physician who will periodically review the plan of care. Time Spent With Patient Time: Total time managing care of this patient today ____ minutes.
--- NOTE | 2025-03-20 14:22 | PM.DS ---
DS: Providers Provider Date of Service: 03/20/25 Date of admission: 03/13/25 17:35 Date of discharge: 03/20/25 Primary care physician: Latoya Lopez MD Consults: 03/13/25 18:29 Consult to Nephrology Routine Consulting Provider: [facility] [place] [place] [facility] Reason for consultation: VERENA Has provider been notified: No 03/14/25 02:05 Consult to Wound Care Routine Reason for consultation: blanchable redness to coccyx, discoloration to LEs 03/18/25 16:10 Consult to Orthopedics Routine Consulting Provider: [facility] [place] [place] [facility] Reason for consultation: L shoulder tear vs frozen shoulder DS: Diagnosis Discharge Diagnosis (1) Acute kidney failure: Status: Acute DS: Summary Hospital Course Hospital Course: VERENA likely due to aggressive diuresis - suboptimal renal recovery despite stopping diuretics and FERNY inhibitors Patient is a 79yo M with AF on apixaban, HTN, HFrEF (LVEF 40-45%), HLD with recent 36-day hospitalization at [facility] in [facility] for respiratory failure/pulmonary edema/CHF exacerbation during which he was intubated twice presenting after a fall and found to have VERENA likely secondary to aggressive diuresis ( the records from [facility]. His Cr peaked at 1.71 and was discharged on 03/03 with SCr 1.21. Discharge medications from [facility] were listed as bumetanide 1 mg bid and metolazone 2.5 mg bid). Since admission, patient's diuretics and FERNY inhibitors and nephrotoxic medications have been held. Despite that he continued to require fluid resuscitation which is also limited given his new onset HFrEF, limiting our management of GDM T. Patient's creatinine at the time of discharge it was 1.76. Nephrology was consulted, we will follow him outpatient. Patient is not at the point of requiring dialysis. He required occasional fluid resuscitation, in the setting of asymptomatic hypotension with SBP in the 80s. Was euvolemic at the time of discharge. We stopped all antihypertensives, diuretics, FERNY inhibitors in the setting of VERENA. Patient has been slow to respond to the above management. Possible left shoulder tear severe arthritis severe L shoulder pain - MSK in etiology Likely secondary to chronic severe osteoarthritis with trauma causing left shoulder tear-patient received medical management-Tylenol, lidocaine, Robaxin, occasional oxycodone with mild improvement. MRI to be done outpatient as per policy/insurance Patient received physical therapy at the time of this admission while inpatient. Patient did not meet SNF criteria while inpatient brief episode of hypotension Likely in the setting of dietary intake, patient responded well with fluid supplementation. Discontinued BPH meds with some response-patient continues to have SBP in the 100s Chronic/prior T12 compression fracture -NV intact - continue lidocaine patch PT/OT ground-glass opacities in lung - Suspect residual from recent respiratory failure, currently not hypoxic and without cough or dyspnea, continue to monitor Please follow-up with PCP/pulmonology outpatient lactic acidosis, acute-resolved upon holding metformin - Suspect MTF effect, no septic; d/c MTF given VERENA chronic HFrEF - Stopped metoprolol tartrate ,bumetanide, lisinopril, metolazone given severe hypotension and soft blood pressures throughout this hospitalization GDM T is limited in the setting of asymptomatic but persistent soft blood pressures with SBP in the 100s. Patient needs FERNY/ARB/SGLT2/ - TTE 03/14: 1. [id number] LV systolic dysfunction with LVEF of 40-45% with moderate increase in left ventricular wall thickness 2. Severely dilated left atrium 3. Calcific aortic valve changes noted with overall normal cardiac valvular Dopplers 4. Normal RV systolic pressure with mildly elevated right atrial pressures 5. Mildly dilated ascending aorta at 3.7 cm 6. No gross pericardial effusion - Pt of Dr Keller at [facility] [place] [place] [facility]; consult was supposed to be 03/17, we will likely need to be rescheduled at a later date upon discharge-we will reach out/put in a consult post discharge chronic AF - continue apixaban Stop metoprolol-can resume pending PCP/cardiac workup HLD - statin, ASA DM2 - metformin has been held this admission/discontinued given VERENA with suboptimal renal recovery BPH -hold/stop doxazosin, tamsulosin as the patient is hypotensive into the SBP 80s VTE ppx - apixaban, renally dosed Patient needs to have outpatient workup/monitoring to have his VERENA monitored and resume full dose Eliquis per kidney functions Significant deconditioning Adult failure to thrive -although the patient is significantly deconditioned and required rehab, insurance denied inpatient rehab and hence he is being sent home with services, we will get outpatient PTOT This note is constructed using voice recognition software. While every effort has been made to ensure accuracy, health information clerk errors may have been included. Total time managing care of this patient today: 35 minutes. Time spent discussing smoking cessation with patient: more than 10 minutes Status at Discharge Functional status at discharge: uses cane/walker Overall status at discharge: patient is not back to baseline Time Attestation Discharge Coordination Time (in mins): 35 Quality: Safe Use of Opioids Does Pt have an Active Cancer Diagnosis on the Problem List?: No Quality: Stroke Does the patient have a stroke diagnosis?: No Physical Exam Vital Signs: Vital Signs: Last Vital Signs Temp 98.0 F 03/20/25 08:00 Pulse 88 03/20/25 08:00 Resp 18 03/20/25 08:00 BP 129/58 L 03/20/25 08:00 Pulse Ox 97 03/20/25 08:00 O2 Del Method Room Air 03/20/25 08:00 BMI result Body Mass Index 31.9 DS: Data Data Completed and Pending Labs on day of discharge: Laboratory Results - last 24 hr 03/19/25 03/19/25 03/20/25 16:04 20:02 05:20 WBC 4.5 L RBC 2.93 L Hgb 8.5 L Hct 25.4 L MCV 86.7 MCH 29.0 MCHC 33.5 RDW 21.4 H Plt Count 117 L MPV Not Reportable Immature Gran % (Auto) 0.4 Neut % (Auto) 68.2 Lymph % (Auto) 19.7 L Mesa % (Auto) 7.3 Eos % (Auto) 3.3 Baso % (Auto) 1.1 Lymph # (Auto) 0.9 L [place] # (Auto) 0.3 Eos # (Auto) 0.2 Baso # (Auto) 0.1 Abs Immat Gran (auto) 0.02 Absolute Neuts (auto) 3.1 Absolute Nucleated RBC 0.000 Nucleated RBC % (auto) 0.0 Smear Tech's Comments VERIFIED Sodium 138 Potassium 4.4 Chloride 107 Carbon Dioxide 24 Anion Gap 11 L BUN 48 H Creatinine 1.76 H Estim Creat Clear Calc 39.1 Estimated GFR 37 POC Glucose 165 H 127 H Random Glucose 148 H Calcium 8.4 Total Bilirubin 0.5 AST 12 ALT < 6 Alkaline Phosphatase 96 Total Protein 5.2 L Albumin 2.9 L 03/20/25 03/20/25 07:50 11:26 WBC RBC Hgb Hct MCV MCH MCHC RDW Plt Count MPV Immature Gran % (Auto) Neut % (Auto) Lymph % (Auto) Mesa % (Auto) Eos % (Auto) Baso % (Auto) Lymph # (Auto) Mesa # (Auto) Eos # (Auto) Baso # (Auto) Abs Immat Gran (auto) Absolute Neuts (auto) Absolute Nucleated RBC Nucleated RBC % (auto) Smear Tech's Comments Sodium Potassium Chloride Carbon Dioxide Anion Gap BUN Creatinine Estim Creat Clear Calc Estimated GFR POC Glucose 112 227 H Random Glucose Calcium Total Bilirubin AST ALT Alkaline Phosphatase Total Protein Albumin Discharge Plan Discharge Anticipated Discharge Date/Time: 03/20/25 13:32 Patient Disposition: Home Health Service Discharge Diagnosis: Syncope and fall secondary to VERENA in the setting of aggressive diuresis Referrals: [facility] [Outside] - 1 Week Referral Note: HOME SERVICES FOR [facility], OCCUPATIONAL/PHYSICAL THERAPY- A NURSE WILL CALL YOU TO SET UP FIRST VISIT. Latoya Lopez MD [Primary Care Provider, Internal Medicine] - 1 Week Discharge Medications: New Eliquis 2.5 mg Tablet 2.5 mg PO BID 30 Days Qty: 60 3RF Rx Instructions: Needs to follow-up with PCP/Nephrology and increase the dose once VERENA resolves acetaminophen 325 mg Tablet 975 mg PO Q8H 14 Days Qty: 126 3RF bisacodyl 5 mg Tablet,Delayed Release (Dr/Ec) 5 mg PO BEDTIME PRN (Reason: Constipation) 14 Days Qty: 14 3RF polyethylene glycol 3350 17 gram Powder In Packet 17 g PO DAILY PRN (Reason: Constipation) 14 Days Qty: 14 3RF sennosides [Senna Lax] 8.6 mg Tablet 8.6 mg PO DAILY PRN (Reason: Constipation) Qty: 14 3RF lidocaine [Lidocaine Pain Relief] 4 % Adhesive Patch,Medicated 1 patch transdermal DAILY Qty: 10 3RF Protocol: Apply to: Apply to: T12 Continued (DME) OneTouch Verio test strips Strip See Rx Instructions .ROUTE .MEDSUPPLY Qty: 100 1RF Rx Instructions: use 1 strip once a day to test blood sugar (DME) blood-glucose meter [OneTouch Verio Flex meter] Misc See Rx Instructions .ROUTE .MEDSUPPLY Qty: 1 0RF Rx Instructions: As directed (DME) lancets [Accu-Chek Softclix Lancets] Misc See Rx Instructions .ROUTE .MEDSUPPLY Qty: 100 3RF Rx Instructions: use 1 lancet daily to test blood sugar tamsulosin 0.4 mg capsule 0.4 mg PO DAILY 90 Days Qty: 90 3RF acetaminophen 500 mg Tablet 500 mg PO Q6H PRN (Reason: Fever Or Pain) atorvastatin [Lipitor] 40 mg tablet 40 mg PO BEDTIME aspirin 81 mg tablet 81 mg PO DAILY oxycodone 5 mg tablet 5 mg PO Q6H PRN (Reason: Pain) Discontinued Eliquis 5 mg tablet 5 mg PO BID Qty: 180 3RF metolazone 2.5 mg tablet 2.5 mg PO DAILY lisinopril 20 mg tablet 20 mg PO BID potassium chloride 20 mEq tablet,ER particles/crystals 20 meq PO DAILY metformin 1,000 mg tablet 1,000 mg PO BID alprazolam 0.5 mg tablet 0.5 mg PO Q8H PRN (Reason: anxiety) doxazosin [Cardura] 1 mg tablet 1 mg PO BEDTIME metoprolol tartrate 50 mg tablet 25 mg PO BID bumetanide 1 mg tablet 1 mg PO BID Discharge Orders: Discharge Order (Routine); Ordered 03/20/25 Ordered By: Lauren Stoner Diet: Advance to usual diet Activity on Discharge: As tolerated Stand Alone Forms: Patient Portal Discharge page Print Language: Czech Care Plan Goals: Left shoulder physical therapy Insurance denied rehab stay-hence patient going home with services Needs to follow outpatient and follow his creatinine to document renal recovery and increase his Eliquis dose based on renal recovery Blood pressure needs to be monitored at home and hence patient is being instructed to follow carefully monitor signs of hypotension Health Concerns: Patient continues to endorse left shoulder pain-explained to him that he should take Tylenol, lidocaine patches, Robaxin, MRI and orthopedic consult in outpatient setting PT OT Plan of Treatment: See above Assessment: See above
--- NOTE | 2025-03-20 14:44 | P.F2F_ITS ---
Service Date Service Date: 03/20/25 Encounter Date of encounter: 03/20/25 Reasons for Services Signs and symptoms assessed: Hypotension Reason for intermediate: CV/CP assess and/or care, neurological assessment, wound care, administration of IV, SQ, or IM injection, central line care, postoperative assessment and/or care, diabetic teaching, monitoring of unstable blood sugar, monitoring of PT/INR, medication management, medication treatment, teach disease management, GI/ assessment and other Homebound: Leaving the home is medically contraindicated at this time without the asist of a device and/or another person due th the listed conditions above and below. Reason homebound: unsteady gait / fall risk, fall risk related to blood pressure changes, leg weakness, bedbound/chairbound, pain with transfers, poor balance / fall risk, psychologically impaired / unsafe, cognitively impaired / unsafe, weakness related to hospital stay and unable to drive Certification: Based on the above findings, I certify that this patient is confined to the home and needs intermittent intermediate care, physical therapy and/or speech therapy, or continues to need occupational therapy. The patient is under my care, and I have initiated the establishment of the plan of care. The patient will be followed by a physician who will periodically review the plan of care. Time Spent With Patient Time: Total time managing care of this patient today ____ minutes.
== END 2025-03-20 15:38 | disposition home health service (06) | DRG 683 ==
LOC: HO.ED 17:29 → HO.EDOVER 17:41 → HO.S3 18:01
PROVIDERS: Family Medicine; Internal Medicine Critical Care Medicine; Admitting Provider Hospitalist; Emergency Provider Emergency Medicine; PCP Internal Medicine; Visit Provider Student in an Organized Health Care Education/Training Program
DX: N17.0 Acute kidney failure with tubular necrosis (principal); E87.21 Acute metabolic acidosis; I48.19 Other persistent atrial fibrillation; I50.22 Chronic systolic (congestive) heart failure; M48.54XA Collapsed vertebra, not elsewhere classified, thoracic region, initial encounter for fracture; T46.4X5A Adverse effect of angiotensin-converting-enzyme inhibitors, initial encounter; E86.1 Hypovolemia; E78.5 Hyperlipidemia, unspecified; E11.9 Type 2 diabetes mellitus without complications; S46.012A Strain of muscle(s) and tendon(s) of the rotator cuff of left shoulder, initial encounter; I95.9 Hypotension, unspecified; M19.012 Primary osteoarthritis, left shoulder; N40.0 Benign prostatic hyperplasia without lower urinary tract symptoms; I11.0 Hypertensive heart disease with heart failure; W19.XXXA Unspecified fall, initial encounter; Z20.822 Contact with and (suspected) exposure to COVID-19; Z79.82 Long term (current) use of aspirin; Z79.899 Other long term (current) drug therapy
CPT/HCPCS: 36415; 70450; 71045; 71250; 72125; 73030; 74176; 76775; 80048; 80053; 81003; 82272; 82570; 82803; 82947; 83605; 83880; 84300; 84484; 85025; 85610; 85999; 87040; 87502; 87635; 93005; 93306; 93970; 93971; 97116; 97162; 97530; 99212; 99285; J0131; J0456; J1200; J2270; J2543; J7120; Q9957

== ENCOUNTER → 2025-03-13 10:27 | Outpatient (BNV) | payer MEDICARE, SELFPAY | PROVIDERS: Emergency Provider Emergency Medicine; PCP Internal Medicine; Visit Provider Internal Medicine Cardiovascular Disease | DX: I48.91 Unspecified atrial fibrillation (principal) | CPT/HCPCS: 93010 ==

== ENCOUNTER → 2025-03-13 10:29 | Outpatient (BNV) | payer MEDICARE, SELFPAY | PROVIDERS: Emergency Provider Emergency Medicine; PCP Internal Medicine; Visit Provider Radiology Diagnostic Radiology | DX: R22.43 Localized swelling, mass and lump, lower limb, bilateral (principal) | CPT/HCPCS: 70450; 71045; 71250; 72125; 73030; 74176; 93970 ==

== ENCOUNTER 2025-03-13 17:35 | Outpatient (BNV) | payer MEDICARE, SELFPAY | END 2025-03-17 16:53 | PROVIDERS: Admitting Provider Hospitalist; Emergency Provider Emergency Medicine; PCP Internal Medicine; Visit Provider Radiology Diagnostic Radiology | DX: R22.32 Localized swelling, mass and lump, left upper limb (principal) | CPT/HCPCS: 93971 ==

== ENCOUNTER 2025-03-13 17:35 | Outpatient (BNV) | payer MEDICARE, SELFPAY | END 2025-03-14 07:00 | PROVIDERS: Admitting Provider Hospitalist; Emergency Provider Emergency Medicine; PCP Internal Medicine; Visit Provider Internal Medicine Cardiovascular Disease | DX: I35.8 Other nonrheumatic aortic valve disorders (principal); R93.1 Abnormal findings on diagnostic imaging of heart and coronary circulation; I51.7 Cardiomegaly | CPT/HCPCS: 93306 ==

== ENCOUNTER 2025-03-13 17:35 | Outpatient (BNV) | payer MEDICARE, SELFPAY | END 2025-03-14 15:14 | PROVIDERS: Admitting Provider Hospitalist; Emergency Provider Emergency Medicine; PCP Internal Medicine; Visit Provider Radiology Diagnostic Radiology | DX: N17.9 Acute kidney failure, unspecified (principal) | CPT/HCPCS: 76775 ==

== ENCOUNTER → 2025-03-13 17:35 | Outpatient (BNV) | payer MEDICARE, SELFPAY | PROVIDERS: Admitting Provider Hospitalist; Emergency Provider Emergency Medicine; PCP Internal Medicine; Visit Provider Nurse Practitioner Family | DX: N17.9 Acute kidney failure, unspecified (principal) | CPT/HCPCS: 99222; 99232 ==

== ENCOUNTER → 2025-03-13 17:35 | Outpatient (BNV) | payer MEDICARE, SELFPAY | PROVIDERS: Admitting Provider Hospitalist; Emergency Provider Emergency Medicine; PCP Internal Medicine; Visit Provider Hospitalist | DX: N17.9 Acute kidney failure, unspecified (principal); I48.19 Other persistent atrial fibrillation; E11.9 Type 2 diabetes mellitus without complications; I50.9 Heart failure, unspecified | CPT/HCPCS: 99223 ==

== ENCOUNTER 2025-03-24 11:50 | Outpatient (AMB) | payer MEDICARE, SELFPAY ==
--- OUTSIDE RECORDS SUMMARY | 2025-03-20 10:45 | XMS_ITS ---
Author Organization [facility] Address [address] [place] [phone] Care Team Providers Care Complaint Coordinator Name Role Phone John PENNY, Latoya Negrete Primary Care Provider Un available Francine Ibrahim Ciro [phone] Encounters Encounter Location Date Provider Diagnosis [address] [address] 03/20/2025 Francine Patrice Plan Of Treatment Next Appt Details Provider Name:Francine Ibrahim , 2025 01:30:00 PM, [address] [place] [address], [phone], Progress Notes * Alireza ROWAN MDOB: 4 (79 yo M)Acc No.[id number]:03/20/2025 Progress Note Patient: Alireza DENNISON Provider: Wen Ibrahim DPM :1945 A ge:79 Y S ex:Male Date:03/20/2025 Address:[address] [place] [phone] Pcp:Amol Yepez Subjective: * Chief Complaints: * [...] 03/20/2025 Generated for Floyd robertson/Marquis/Lorenzo on: 0 03/24/2025 02:32 PM EDT
--- NOTE | 2025-03-24 12:15 | A.OFFPC_ITS ---
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 Accompanied by: Daughter Allergies cephalexin (Keflex) Allergy (Intermediate, Verified 03/31/25 03:56) hives levofloxacin Allergy (Intermediate, Verified 03/31/25 03:56) Hives cetirizine (From Rustte) Adverse Reaction (Intermediate, Verified 03/31/25 03:56) Fatigue Medication List - Last Reconciled 03/24/25 by Latoya Lopez MD acetaminophen 500 mg PO Q6H PRN apixaban (Eliquis) 2.5 mg PO BID 30 days aspirin 81 mg PO DAILY atorvastatin (Lipitor) 40 mg PO BEDTIME blood sugar diagnostic (Daily Sales Exchangeuch Verio test strips) use 1 strip once a day to test blood sugar blood-glucose meter (OneTouch Verio Flex Meter) As directed lancets (Accu-Chek Softclix Lancets) use 1 lancet daily to test blood sugar lidocaine 4% (Lidocaine Pain Relief) 1 patch See Protocol transdermal DAILY polyethylene glycol 3350 17 grams PO DAILY PRN 14 days sennosides (Senna Lax) 8.6 mg PO DAILY PRN tamsulosin 0.4 mg PO DAILY 90 days Tobacco use date assessed: 03/24/25 Fall risk assessment: 2 + Falls in past year Last assessed Fall Risk: 03/24/25 Dental Screening Dental Screen Date: 03/24/25 Did you have a dental visit in the last 12 months?: Yes Did you have a dental problem in the last 6 months where you did not have access to dental care?: Yes Was dental information given to patient?: Patient has dentist HPI TCM HPI Details 79yo M with atrial fibrillation on apixaban, HTN, HFrEF (LVEF 40-45%), hyperlipidemia with recent 36-day hospitalization at [facility] in [facility] for respiratory failure/pulmonary edema/CHF exacerbation during which he was intubated twice presenting after a fall , recently admitted due to acute kidney injury, likely secondary to aggressive diuresis with bumetanide 1 mg twice a day and metolazone 2.5 mg twice a day . The records from [facility] showed his Cr peaked at 1.71 and was discharged on 03/03 with SCr 1.21. Is diuretics and FERNY inhibitors and nephrotoxic medications have been held. Despite that he continued to require fluid resuscitation which is also limited given his new onset HFrEF, limiting our management of GDM T. Patient's creatinine at the time of discharge it was 1.76. Nephrology was consulted, did not require dialysis and will be followed outpatient . During this recent admission, he required occasional fluid resuscitation, in the setting of asymptomatic hypotension with SBP in the 80s. Was euvolemic at the time of discharge. His creatinine and GFR was 1.76 and thirty-seven respectively on 03/20/2025, and was pancytopenic on day of discharge 03/20/2025 . All his antihypertensives, diuretics, FERNY inhibitors were held in the setting of VERENA. Was complaining of pain in his left shoulder due to severe arthritis, as well as low back pain due to prior T12 compression fracture now taking Tylenol and given oxycodone with only minimal improvement patient to do an MRI outpatient if renal function improved .He received physical/occupational therapy while admitted and is to be to continued outpatient He was noted to have ground-glass opacities in lung, suspected to be residual from recent respiratory failure, patient not hypoxic and without any cough or dyspnea will continue to monitor. Follow with Pulmonary outpatient if symptoms persists Metformin was discontinued due this recent admission due to decreasing renal function and development of brief episode of lactic acidosis, which resolved after discontinuation of metformin. He has chronic HFrEF. Transthoracic echocardiogram done 03/14/2025 showed [id number] LV systolic dysfunction with LVEF of 40-45%, with moderate increase in left ventricular wall thickness sent severely dilated left atrium and calcific aortic valve changes noted, no gross pericardial effusion seen His metoprolol tartrate ,bumetanide, lisinopril, metolazone were stopped given severe hypotension and soft blood pressures throughout this hospitalization Has chronic AF, continued on apixaban adjusted to renal dose, but metoprolol was against stopped due to hypotension His atorvastatin and aspirin, doxazosin and tamsulosin for his BPH were also held during this admission Insurance denied inpatient rehabilitation and patient was discharged home with services to include outpatient PT/OT At present patient states that he is feeling better, but still remains weak, and has unsteady gait. Appetite has improved, denies any chest pain or shortness of breath, blood pressure is within normal range on this visit despite not being on any antihypertensive. TCM TCM Information Date of Discharge 03/20/25 Discharged From [facility] Interactive Contact Date (Reference documentation from this date) 03/21/25 [facility] Medical History (Updated 03/31/25 @ 04:26 by Latoya Lopez MD) Physical deconditioning Weakness Hypertensive retinopathy Posterior vitreous detachment, left eye Epiphora due to excess lacrimation of right side Senile ectropion of right lower eyelid BPH (benign prostatic hyperplasia) Type 2 diabetes mellitus without complication, with no history of insulin use Normocytic anemia Thrombocytopenia COVID-19 vaccine series completed 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 Social History Household Members: None Housing: House Are you a primary workforce investment act career manager to a significant other at home: No Do you presently have visiting nurse or other home services: Yes Patient Tobacco Use Status: Never used Tobacco e-Cigarette/Vaping Use: Never Used Second Hand Smoke Exposure: Yes Advance Directives Date on File: 12/28/23 service: No Current occupational status: retired Cognitive needs: No Hearing needs: No Vision needs: Yes Questionnaire PHQ-9 Over the last 2 weeks, how often have you been bothered by any of the following problems? 1. Little interest or pleasure in doing things: not at all 2. Feeling down, depressed, or hopeless: not at all 3. Trouble falling or staying asleep, or sleeping too much: not at all 4. Feeling tired or having little energy: not at all 5. Poor appetite or overeating: not at all 6. Feeling bad about yourself - or that you are a failure or have let yourself or your family down: not at all 7. Trouble concentrating on things, such as reading the newspaper or watching television: not at all 8. Moving or speaking so slowly that other people could have noticed. Or the opposite - being so fidgety or restless that you have been moving around a lot more than usual: not at all 9. Thoughts that you would be better off or of hurting yourself in some way: not at all Total score: 0 Depression Screening Interpretation: Negative Depression Screening Done: Yes Source: Developed by Drs. Isma Davidson, Radha Sumner, Bobby Reyes and colleagues, with an educational gina from [employer]. Thrive Questionnaire Date Thrive assessed: 03/14/25 I am a: Patient What is your living situation today?: I have a steady place to live Within the past 12 months, did the food you bought not last and you didn't have the money to get more?: Never true Within the past 12 months, did you worry whether your food would run out before you got money to buy more?: Never true Do you have trouble paying for medicines?: No Do you have trouble getting transportation to medical appointments?: No Do you have trouble paying your heating and electricity bill?: No Do you have trouble taking care of your child, family member or friend?: No Do you have trouble with day-to-day activities such as bathing, preparing meals, shopping, managing finances, etc.?: No Are you currently unemployed and looking for a job?: No Are you interested in more education?: No Please select the resources that you would like help with: None Currently or been in a relationship where the following occur: No concerns reported THRIVE Score: 0 AUDIT C Alcohol Use Questionnaire (AUDIT-C) 1. How often do you have a drink containing alcohol?: Never 3. How often do you have six or more drinks on one occasion?: Never Total Score: 0 MARY-7 AMB Questionnaire MARY-7 Date MARY - 7 assessed: 08/22/24 Feeling nervous, anxious, or on edge: 0 = Not at all Not being able to stop or control worryin = Not at all Worrying too much about different things: 0 = Not at all Trouble relaxin = Not at all Being so restless that it is hard to sit still: 0 = Not at all Becoming easily annoyed or irritable: 0 = Not at all Feeling afraid as if something awful might happen: 0 = Not at all Total MARY-7 score (0-4 normal; 5-9 mild; 10-14 moderate; 15-21 severe): 0 Source: Developed by Drs. Isma Davidson, Radha Sumner, Bobby Reyes and colleagues, with an educational gina from [employer]. Review of Systems Const Details: Still with easy fatigability and generalized weakness, now able to walk on his own but slow gait, afebrile Eyes Details: Goes to [facility] for his diabetes retinopathy screening and eye exam ENT Reports no additional complaints Card Denies chest pain, Denies syncope, Denies rapid heart rate, Denies lightheadedness, Denies palpitations and Denies dyspnea Resp Denies cough and Denies dyspnea GI Denies abdominal pain, Denies hematochezia, Denies change in bowel habits, Denies change in stool character and Denies heartburn Reports no additional complaints Musc Denies muscle cramps, Reports muscle weakness, Denies numbness, Denies radiating pain into limb, Reports stiffness and Denies tingling Skin/Breast Details: Currently being seen by [facility] Neuro Denies syncope, Denies numbness, Denies Sensory deficit (Neuro) and Denies tingling Psych Reports no additional complaints Endo Denies palpitations Ulysses/Lymph Reports no additional complaints Aller/Immun Reports no additional complaints Physical exam (Primary Care) Vital Signs: Last Vital Signs Temp 97.7 F 03/24/25 12:31 Pulse 98 03/24/25 12:31 Resp 16 03/24/25 12:31 BP 120/54 L 03/24/25 12:31 Pulse Ox 98 03/24/25 12:31 Oxygen Delivery Method Room Air 03/24/25 12:31 BMI result Body Mass Index 31.4 Tobacco/Smoking Status: Tobacco use Status Tobacco use date assessed 03/24/25 03/24/25 12:19 Patient Tobacco Use Status Never used Tobacco 03/24/25 12:16 e-Cigarette/Vaping Use Never Used 03/24/25 12:16 PHQ-9: PHQ-9 Score PHQ-9: Total score 0 03/31/25 04:03 Depression Screening Interpretation: Negative Thrive Assessment: Date of Thrive Assessment Date Thrive assessed 03/14/25 03/24/25 12:16 Currently or been in a relationship where the following occur: No concerns reported Const General: comfortable and no acute distress Orientation/consciousness: patient oriented x3 HENMT Face and sinus: Yes normal facial exam Eyes General: appearance normal, both eyes and all related structures Neck Neck: Yes normal visual inspection and Yes full ROM Resp Effort & Inspection: normal respiratory effort and able to speak in complete sentences Skin Other: Dry skin with areas of hyperpigmentation patch noted in upper and lower extremities Neuro General: patient oriented x3 Cognition (Neuro): normal cognition Motor exam (neuro): 5/5 motor strength present throughout Sensory Exam: No Sensory deficit (Neuro) Extrem Other: Decreased range of motion of left shoulder joint due to pain slight edema noted bilaterally General: Yes normal to inspection Psych Appearance: grossly normal and well kempt Mental Status: mental status grossly normal Speech and movement: Normal speech and movement present Affect: normal affect Results Reviewed Results Reviewed: Name: Alireza Gabriel Age/Sex: 79/M : 1945 Unit#: [id number] Attend Dr: Lauren Stoner MD Re03/13/25 Status: DIS IN Location: [place] [address] Disch: 03/20/25 SPEC : [id number] CHRISTIAN: 03/20/25 STATUS: COMP REQ : [id number] RECD: 03/20/[address]: Lauren Stoner MD COMP: 03/20/25 ENTERED: 03/20/25- OTHR DR: Latoya Lopez MD ORDERED: CBC Auto Diff, SLIDE REVIEW Test Result Flag Reference WBC 4.5 L 4.8-10.8 X10*3/uL RBC 2.93 L 4.60-5.80 X10*6/ uL HGB 8.5 L 14.0-18.0 g/dl HCT 25.4 L 42.0-52.0 % MCV 86.7 80.0-98.0 fL MCH 29.0 27.0-33.0 pg MCHC 33.5 31.0-36.0 g/dl RDW 21.4 H 11.0-16.0 % PLT 117 L 160-400 X10*3/uL Neut Pct Auto 68.2 45-73 % ImGran Pct Auto 0.4 0.0-0.4 % Lymp Pct Auto 19.7 L 20-40 % [place] Pct Auto 7.3 2-11 % Eos Pct Auto 3.3 0-4 % Baso Pct Auto 1.1 0-2 % NRBC Pct Auto 0.0 0.0-0.2 /100WBC ANC Neut Abs # 3.1 2.0-8.3 x10*3/uL ImGran Abs Auto 0.02 0.00-0.03 X10*3/uL Lymph Abs Auto 0.9 L 1.2-4.9 X10*3/uL [place] Abs Auto 0.3 0.1-1.2 X10*3/uL Eos Abs Auto 0.2 0.0-0.4 X10*3/uL Baso Abs Auto 0.1 0.0-0.2 X10*3/uL NRBC Abs Auto 0.000 0.0-0.012 X10*3/uL SLIDE REVIEW VERIFIED Name: Alireza Gabriel Age/Sex: 79/M : 1945 Unit#: [id number] Attend Dr: Lauren Stoner MD Re03/13/25 Status: DIS IN Location: [address] Disch: 03/20/25 SPEC : [id number] CHRISTIAN: 03/20/25 STATUS: COMP REQ : [id number] RECD: 03/20/[address]: Lauren Stoner MD COMP: 03/20/25 ENTERED: 03/20/25- OTHR DR: Latoya Lopez MD ORDERED: CMP Test Result Flag Reference Sodium 138 135-145 mmol/L Potassium 4.4 3.3-5.1 mmol/L CL 107 96-108 mmol/L CO2 24 22-29 mmol/L Gap 11 L 12-20 BUN 48 H 9-16 mg/dL Creat 1.76 H 0.5-1.4 mg/dL Estimated CrCl 39.1 eGFR (calculated from the MDRD study equation) and eCrCl (calculated from the Cockcroft-Gault equation) are based on different parameters and may not yield comparable results. If eCrCl result is absurd, please check patient's height/weight. eGFR 37 Chronic Kidney Disease: Estimated GFR < 60 mL/min/1.73m2 Severe Kidney Disease: Estimated GFR < 15 mL/min/1.73m2 Glucose, Random 148 H 60-115 mg/dL CA 8.4 8.4-10.2 mg/dL Total Bili 0.5 0.0-1.0 mg/dL AST (GOT) 12 5-37 U/L ALT (GPT) < 6 0-40 U/L Protein, Total 5.2 L 6.5-8.0 g/dL Alb 2.9 L 3.5-5.0 g/dL Alk Phos 96 39-117 U/L Coding Level of Care Code TCM Mod MDM <= 14 Days Diagnoses VERENA (acute kidney injury) N17.9 Acute kidney failure N17.9 BPH (benign prostatic hyperplasia) N40.0 Persistent atrial fibrillation I48.19 Essential hypertension I10 Cardiomyopathy I42.9 Acute pain of left shoulder M25.512 Chronicity: acute Multiple falls R29.6 Dyslipidemia E78.5 Physical deconditioning R53.81 History of congestive heart failure Z86.79 Pancytopenia D61.818 Assessment & Plan Assessment & Plan (1) VERENA (acute kidney injury): Code(s): N17.9 - Acute kidney failure, unspecified Category: Medical (2) Acute kidney failure: Code(s): N17.9 - Acute kidney failure, unspecified Category: Medical (3) BPH (benign prostatic hyperplasia): Code(s): N40.0 - Benign prostatic hyperplasia without lower urinary tract symptoms Category: Medical (4) Persistent atrial fibrillation: Code(s): I48.19 - Other persistent atrial fibrillation Category: Medical (5) Essential hypertension: Code(s): I10 - Essential (primary) hypertension Category: Medical (6) Cardiomyopathy: Code(s): I42.9 - Cardiomyopathy, unspecified Category: Medical (7) Left shoulder pain: Code(s): M25.512 - Pain in left shoulder Category: Medical Qualifiers: Chronicity: acute Qualified Code(s): M25.512 - Pain in left shoulder (8) Multiple falls: Code(s): R29.6 - Repeated falls Category: Medical (9) Dyslipidemia: Code(s): E78.5 - Hyperlipidemia, unspecified Category: Medical (10) Physical deconditioning: Code(s): R53.81 - Other malaise Category: Medical (11) History of congestive heart failure: Code(s): Z86.79 - Personal history of other diseases of the circulatory system (12) Pancytopenia: Code(s): D61.818 - Other pancytopenia Plan -Continue to hold metoprolol tartrate ,bumetanide, lisinopril, metolazone doxazosin, as patient's blood pressure still on the lower end of normal. -Has chronic AF, continued on apixaban adjusted to renal dose, -discharged with [facility]NA services and to continue OT/PT outpatient. - metformin has been held this admission/discontinued given VERENA with suboptimal renal recovery -restarted back on atorvastatin aspirin 81 mg daily , tamsulosin, and advised to take Tylenol and apply lidocaine patch to affected areas for pain relief. Continue to monitor blood sugar at home and keep a log of the readings. Call if blood sugar levels have persistently going above 150 mg/dL - will consider MRI of shoulder once renal function improves. -keep appointment with Nephrology next week, and has an appointment with Cardiology and vascular surgeon in 2 weeks.
[2025-03-24 12:31] VITALS: BP 120/54; PULSE 98; RESP 16; TEMP 36.5; O2SAT 98; BMI 31.4
--- OUTSIDE RECORDS SUMMARY | 2025-03-24 14:32 | XMS_ITS | Patient Health Record ---
Author Organization [facility] Address [address] [place] [address] Care Team Providers Care Job Placement Officer Name Role Phone John PENNY, Latoya Negrete Primary Care Provider Un available Black, Francine Unavailable [phone] Allergies Allergen (clinical drug ingredient) Drug/Non Drug [...] Polyneuropathy due to type 2 diabetes mellitus (674656061) Type 2 diabetes mellitus with diabetic polyneuropathy (E11.42) Active confirmed Vital Signs Blood pressure diastolic 76 mm Hg 01/09/2025 Height 5 ft 10 in in 01/09/2025 Blood pressure systolic 120 mm Hg 01/09/2025 Weight 228 lbs 01/09/2025 BMI 32.71 kg/m2 01/09/2025 Procedures Procedure Date Ordered Date Performed Result Body Sit e 99781-OFVIQNV NAIL, 6 OR MORE 06/03/2024 N/A 76355-XFMA SKIN LESIONS, OVER 4 06/03/2024 N/A 57889-SNCKCDP NAIL, 6 OR MORE 09/09/2024 N/A 09603-Ckpsyoqs Plate 09/09/2024 N/A 02327-GMBC SKIN LESIONS, OVER 4 09/09/2024 N/A 86972-Mllujxmq Plate 10/09/2024 N/A 13065-XGILMDS NAIL, 6 OR MORE 12/16/2024 N/A 05324-Psgqnblj Plate 12/16/2024 N/A 92756-DDFJ SKIN LESIONS, OVER 4 12/16/2024 N/A 22085-Glkkgiup Plate 01/09/2025 N/A 91377-Lfndrwvp Plate Each Additional 01/09/2025 N/A Encounters Encounter Location Date Provider Diagnosis [address] [address] 06/03/2024 Francine Black Type 2 diabetes mellitus with diabetic polyneuropathy E11.42 ; Tinea unguium B35.1 ; Ingrown nail L60.0 and Edema, lower extremity R60.[address] [address] 09/09/2024 Francine Black Type 2 diabetes mellitus with diabetic polyneuropathy E11.42 ; Other hammer toe(s) (acquired), right foot M20.41 ; Tinea unguium B35.1 ; Ingrown nail L60.0 ; Edema, lower extremity R60.0 and Other hammer toe(s) (acquired), left foot M20.[address] [address] 10/09/2024 Francine Black Ingrown nail L60.0 a nd Type 2 diabetes mellitus with diabetic polyneuropathy E11.[address] [address] 12/16/2024 Francine Black Type 2 diabetes mellitus with diabetic polyneuropathy E11.42 ; Edema, lower extremity R60.0 ; Ingrown nail L60.0 and Tinea unguium B35.1 [facility] [address] [address] 01/09/2025 Francine Black Ingrown nail L60.0 a nd Type 2 diabetes mellitus with diabetic polyneuropathy E11.42 [facility] [address] 10/08/2024 Francine Black [facility] [address] 01/08/2025 Francine Black [facility] [address] [address] 03/20/2025 Francine Black Assessments Encounter Date Diagnosis (ICD Code) Assessment [...] Order Date Microalbumin, 24 hr Urine 06/23/2015 46968-YGQSYHR NAIL, 6 OR MORE 12/16/2024 44405-XIHJXSE NAIL, 6 OR MORE 02/02/2023 35189-AAEBRWZ NAIL, 6 OR MORE 05/11/2023 66020-SCEVREQ NAIL, 6 OR MORE 08/10/2023 66424-XLBJUJQ NAIL, 6 OR MORE 11/13/2023 27783-FAMDNJK NAIL, 6 OR MORE 02/26/2024 48189-KUSXSKE NAIL, 6 OR MORE 06/03/2024 84070-BTJJDCK NAIL, 6 OR MORE 09/09/2024 77432-RSBDHSU NAIL, 6 OR MORE 05/05/2011 09250-FQUIGNA NAIL, 6 OR MORE 09/19/2011 98919-GZIGLND NAIL, 6 OR MORE 11/03/2011 46857-HRCUZIG NAIL, 6 OR MORE 12/05/2011 01891-LLDOUUN NAIL, 6 OR MORE 11/27/2012 88678-LLPGCQU NAIL, 6 OR MORE 07/29/2013 29723-NMVDIWI NAIL, 6 OR MORE 01/27/2014 83675-FJFLNGC NAIL, 6 OR MORE 09/04/2015 85678-SXXBHOF NAIL, 6 OR MORE 12/02/2015 18778-XOKTJGP NAIL, 6 OR MORE 02/08/2016 75659-GSQVMHW NAIL, 6 OR MORE 04/25/2016 96985-LXVSABI NAIL, 6 OR MORE 07/11/2016 64588-HJIFBZO NAIL, 6 OR MORE 09/08/2016 24604-AWLAJLI NAIL, 6 OR MORE 11/17/2016 75429-TAHEYKA NAIL, 6 OR MORE 02/02/2017 55784-BJBDPHZ NAIL, 6 OR MORE 04/11/2017 27156-KKMGLMP NAIL, 6 OR MORE 07/05/2017 87787-EMMMUNF NAIL, 6 OR MORE 09/14/2017 51045-SATIGCW NAIL, 6 OR MORE 11/20/2017 37098-ESITAKU NAIL, 6 OR MORE 01/29/2018 16943-HZFGCYT NAIL, 6 OR MORE 06/12/2018 15085-DWOPJLN NAIL, 6 OR MORE 08/27/2018 74861-FUPHVXW NAIL, 6 OR MORE 11/05/2018 76572-IFWOZYP NAIL, 6 OR MORE 03/05/2019 13388-TOVRDND NAIL, 6 OR MORE 05/13/2019 23897-ELDKXGM NAIL, 6 OR MORE 08/05/2019 29712-MSAWVGU NAIL, 6 OR MORE 10/28/2019 04673-KSBXOOY NAIL, 6 OR MORE 03/26/2020 39787-WCWMWHY NAIL, 6 OR MORE 12/23/2019 60376-AQAPMEC NAIL, 6 OR MORE 06/11/2020 38452-NINEWEN NAIL, 6 OR MORE 08/20/2020 82145-ROQLZXU NAIL, 6 OR MORE 10/22/2020 65429-LXBXNAO NAIL, 6 OR MORE 12/31/2020 25833-JKITDWP NAIL, 6 OR MORE 04/19/2021 72598-XPCPNUJ NAIL, 6 OR MORE 07/15/2021 65792-FECLIEH NAIL, 6 OR MORE 10/04/2021 65073-KXWBJXI NAIL, 6 OR MORE 02/08/2022 25310-DCJMZSR NAIL, 6 OR MORE 04/25/2022 60149-SYVMQSB NAIL, 6 OR MORE 08/01/2022 94504-IAYMEYL NAIL, 6 OR MORE 11/03/2022 77768-JWENHZV NAIL, 1-5 04/03/2015 38748-XVLEEVH NAIL, 1-5 06/16/2015 89325-SDXILYD NAIL, 1-5 07/28/2014 06326-RUMKSGT NAIL, 1-5 04/30/2012 87483-TUHVGRF NAIL, 1-5 11/27/2014 06609-RSIRGSH NAIL, 1-5 01/26/2015 62268-Kave Destruction, -14 04/25/2022 60718-Ckke Destruction, -14 08/01/2022 34561-Lncj Destruction, -14 11/03/2022 43796-Jmwpckyl Plate 09/09/2024 92937-Rvxuwfvs Plate 10/09/2024 33577-Yqfudreu Plate 02/26/2024 11501-Rwvjcmec Plate 11/13/2023 85972-Utvlenwi Plate 12/16/2024 14448-Gshfvllf Plate 01/09/2025 84610-Lookqish Plate 11/03/2022 05938-Fmxwedup Plate 02/02/2023 90784-Ugmwqxjg Plate 02/08/2022 56477-Fcwgpwci Plate 10/04/2021 68937-Rhumpqnz Plate 10/28/2019 75577-Mpgiitau Plate 04/19/2021 86673-Qunhbmsp Plate 12/31/2020 90122-Dksacmwr Plate 01/16/2020 49882-Plgtbmoe Plate 01/23/2020 28978-Fbxorwlm Plate 03/05/2019 99271-Gxfzvqjl Plate 05/13/2019 47972-Bshnxyxa Plate 08/27/2018 52250-Zepnrzqd Plate 01/29/2018 98973-Zhofgfiz Plate 06/12/2018 14790-Datjgtxj Plate 01/26/2015 13788-Juppuaed Plate 04/03/2015 20969-Fscfdnax Plate 01/27/2014 60611-Olryyqzr Plate 03/13/2014 52049-Egwkcdcd Plate 07/29/2013 67367-Reezcyhv Plate 11/27/2012 44504-Btccfonb Plate 03/09/2012 92668-Kmwastkt Plate 04/30/2012 54751-Vduqouin Plate 12/05/2011 52633-Uwkggpet Plate 02/23/2012 15888-Fjheixub Plate 11/03/2011 59413-Klivsgdl Plate 09/19/2011 02311-Vpibeeou Plate 05/05/2011 70446-Vlmwvrue Plate 06/06/2011 49553-Atmkiysq Plate 07/28/2014 98583-Mjwafavj Plate 11/27/2014 32798-Tukzjejj Plate 07/11/2016 60790-Ompkrrer Plate 04/25/2016 81894-Logngevs Plate 09/14/2017 42700-Oeczgght Plate 04/11/2017 20775-Zxwcmkim Plate 02/08/2016 69397-Icnotdvl Plate 11/17/2016 18702-Zxaanhoh Plate 09/08/2016 72790-Dcmoptjk Plate Each Additional 22591-Jwocmvht Plate Each Additional 09/2011 18496-Uvwlglts Plate Each Additional 25438-Nfsmkenv Plate Each Additional 01/2012 96994-Plfjdlff Plate Each Additional 78171-Vhwjmgkj Plate Each Additional 41691-Dmajiran Plate Each Additional 98961-Cefbmhfa Plate Each Additional 07/2020 63822-Vcaduqkx Plate Each Additional 03/2022 54754-Kgotrhcv Plate Each Additional 04/2025 57421-FFP 01/11/2012 72565- Debride <25 sq cm 01/30/2012 21878- Debride <25 sq cm 02/23/2012 11457- Debride <25 sq cm 04/30/2012 23992- Debride <25 sq cm 04/24/2017 63034- Debride <25 sq cm 01/30/2020 94884- Debride <25 sq cm 02/13/2020 62889- Debride <25 sq cm 02/27/2020 51552- Debride <25 sq cm 01/23/2020 82759- Debride <25 sq cm 03/26/2020 75130- Debride <25 sq cm 04/06/2020 68783-HCPLMEB SKIN/TISSUE 03/09/2012 47363 I&D ABSCESS- SIMPLE,SINGLE 014 42906 I&D ABSCESS- SIMPLE,SINGLE 022 87523-AMOE SKIN LESIONS, OVER 4 10/05/19 22 64092-OLSD SKIN LESIONS, OVER 4 08/01/19 23 98217-FPPX SKIN LESIONS, OVER 4 04/25/20 22 59584-SFKB SKIN LESIONS, OVER 4 02/03/20 23 48665-FGTQ SKIN LESIONS, OVER 4 11/04/19 23 48876-RYXJ SKIN LESIONS, OVER 4 12/23/19 20 81963-QUMD SKIN LESIONS, OVER 4 10/28/19 20 62889-GRMR SKIN LESIONS, OVER 4 08/27/19 19 79312-ITYA SKIN LESIONS, OVER 4 06/12/20 18 98167-VYUU SKIN LESIONS, OVER 4 01/30/20 18 23867-SXJY SKIN LESIONS, OVER 4 11/06/19 19 13455-XIWC SKIN LESIONS, OVER 4 03/05/20 19 58737-BNOW SKIN LESIONS, OVER 4 05/13/20 19 01832-YLLB SKIN LESIONS, OVER 4 08/05/19 20 73667-IFMM SKIN LESIONS, OVER 4 04/03/20 15 06455-CWTH SKIN LESIONS, OVER 4 07/05/19 18 52450-GHLR SKIN LESIONS, OVER 4 04/11/20 17 54385-IRXN SKIN LESIONS, OVER 4 11/21/19 18 47184-UDGF SKIN LESIONS, OVER 4 09/15/19 18 02923-GSZA SKIN LESIONS, OVER 4 11/18/19 17 04227-DWHS SKIN LESIONS, OVER 4 09/09/19 17 01256-GAYK SKIN LESIONS, OVER 4 02/03/20 17 01351-MSLV SKIN LESIONS, OVER 4 04/25/20 16 67853-LSQH SKIN LESIONS, OVER 4 07/11/19 17 54855-HBNI SKIN LESIONS, OVER 4 02/08/20 16 02586-XSQC SKIN LESIONS, OVER 4 12/02/19 16 83621-MCWI SKIN LESIONS, OVER 4 09/04/19 16 28029-RSPO SKIN LESIONS, OVER 4 06/16/20 15 01779-TVRW SKIN LESIONS, OVER 4 11/13/19 24 66117-SOMC SKIN LESIONS, OVER 4 02/26/20 24 87596-NIMT SKIN LESIONS, OVER 4 08/10/19 24 43203-PHDY SKIN LESIONS, OVER 4 05/11/20 23 13517-YAIN SKIN LESIONS, OVER 4 12/17/19 25 39951-YLBA SKIN LESIONS, OVER 4 09/10/19 25 17110-UFUD SKIN LESIONS, OVER 4 06/03/20 24 42806-QKDQ SKIN LESIONS, 2 TO 4 03/26/20 20 06737-CURD SKIN LESIONS, 2 TO 4 06/11/20 20 31624-SLMF SKIN LESIONS, 2 TO 4 08/20/19 21 39405-GMVD SKIN LESIONS, 2 TO 4 02/09/20 22 21393-KFXA SKIN LESIONS, 2 TO 4 07/15/19 22 93559-ROMP SKIN LESIONS, 2 TO 4 04/19/20 21 31899-VESU SKIN LESIONS, 2 TO 4 01/01/20 21 47933-KGNO SKIN LESIONS, 2 TO 4 10/23/19 21 O7668-OYWZJJPL DYSTROPHIC NAILS ANY # Next Appt Details Provider Name:Francine [place] Patrice , 2025 01:30:00 PM, [address] [place], [address], Insurance Providers Payer Name Payer Address Payer Phone Subscriber Number Group Number Insured Name Patient Relationship to Insured Coverage Start Date Coverage End Date [employer] Medicare [id number] [address] [address] [place] [address] [id number] NeryAlireza leavitt Self - patient is the insured 6 Medical (General) History Medical History History ICD Code mumps back, hip, knee pain type II diabetes Hay fever Other hammer toe(s) (acquired), right fo ot M20.41 Other hammer toe(s) (acquired), left jasmin t M20.42 Surgical History Surgery Date(Month/Year) left knee arthroscopy 1995 left knee replacement 08/28/2012
--- OUTSIDE RECORDS SUMMARY | 2025-03-24 14:32 | XMS_ITS | Patient Health Record ---
Author Organization [facility] Address [address] [place] [address] Care Team Providers Care Optical Instruments Supervisor Name Role Phone John PENNY, Latoya Primary Care Provider Isma Vu [phone] Allergies Allergen (clinical drug ingredient) Drug/Non Drug [...] Problem Status W/U Status Risk Notes Problem 286218094 Encounter for screening for malignant neoplasm of colon (Z12.11) Active confirmed Problem 985124740 History of adenomatous polyp of colon (Z86.010) Active confirmed Problem Iron deficiency anemia (99210619) Iron deficiency anemia (D50.9) Active confirmed Problem 838247376 Preprocedural examination (Z01.818) Active confirmed Problem History of polyp of colon (357381051) History of colon polyps (Z86.010) Active confirmed Problem 050673003 Long-term use of aspirin therapy (Z79.82) Active confirmed Problem 67452884 Constipation, unspecified constipation type (K59.00) Active confirmed Problem 09200850 Other iron deficiency anemia (D50.8) Active confirmed Problem 591742454 Anticoagulant long-term use (Z79.01) Active confirmed Problem 99786036 Iron deficiency anemia, unspecified iron deficiency anemia type (D50.9) Active confirmed Problem 71090011 Mucosal abnormality of duodenum (K31.9) Active confirmed Problem Diverticulosis of colon (888945419) Diverticulosis of colon (K57.30) Active confirmed Vital Signs Blood pressure diastolic 00 mm Hg 04/09/2024 Height 70 in 04/09/2024 Blood pressure systolic 00 mm Hg 04/09/2024 Weight 244 lbs 04/09/2024 BMI 35.01 kg/m2 04/09/2024 Encounters Encounter Location Date Provider Diagnosis [facility] [address] [place] [address] 04/09/2024 Isma Yepez Iron deficiency anemia D50.9 [...] Provider Name:Isma Yepez , 04/08/2025 09:30:00 AM, [address] [place] [address], [address], [place], [address], Insurance Providers Payer Name Payer Address Payer Phone Subscriber Number Group Number Insured Name Patient Relationship to Insured Coverage Start Date Coverage End Date [facility] [address] [address] [place] [address] [id number] ALIX ROWAN Self - patient is the insured Medical (General) History Medical History History ICD Code Colonoscopy 07-20-2007 and 2003--tubular adenomas removed Hyperlipidemia NIDDM Hypertension Denies MT,CVA,Lung disease,renal disease BPH Colonoscopy in 04/2013 with [...]
== END 2025-03-24 13:29 | disposition home or self-care (01) ==
LOC: HO.HMCC 11:50
PROVIDERS: PCP Internal Medicine; Visit Provider Internal Medicine
DX: I48.19 Other persistent atrial fibrillation (principal); I42.9 Cardiomyopathy, unspecified; D61.818 Other pancytopenia; M25.512 Pain in left shoulder; N17.9 Acute kidney failure, unspecified; N40.0 Benign prostatic hyperplasia without lower urinary tract symptoms; I10 Essential (primary) hypertension; Z86.79 Personal history of other diseases of the circulatory system; R29.6 Repeated falls; E78.5 Hyperlipidemia, unspecified; R53.81 Other malaise

== ENCOUNTER → 2025-03-24 11:50 | Outpatient (BNVA) | payer MEDICARE, SELFPAY | PROVIDERS: PCP Internal Medicine; Visit Provider Internal Medicine | DX: I10 Essential (primary) hypertension (principal); N17.9 Acute kidney failure, unspecified; N40.0 Benign prostatic hyperplasia without lower urinary tract symptoms; I48.19 Other persistent atrial fibrillation; I42.9 Cardiomyopathy, unspecified; M25.512 Pain in left shoulder; R29.6 Repeated falls; E78.5 Hyperlipidemia, unspecified; R53.81 Other malaise; D61.818 Other pancytopenia; Z86.79 Personal history of other diseases of the circulatory system | CPT/HCPCS: 96127; 99495 ==

== ENCOUNTER 2025-03-29 08:35 | Outpatient (REF) | payer MEDICARE, SELFPAY ==
[2025-03-29 11:40] LABS: Hemoglobin A1C 151.1939 umol/L; Total Hemoglobin (HGBA1C) 2675.1063 umol/L
[2025-03-29 11:54] LABS: Alanine Aminotransferase 7 U/L (0-40); Anion Gap 11 (12-20); Aspartate Amino Transferase 15 U/L (5-37); Blood Urea Nitrogen 17 mg/dL (9-16); Calcium 8.8 mg/dL (8.4-10.2); Carbon Dioxide 25 mmol/L (22-29); Chloride 106 mmol/L (96-108); Cholesterol 88 mg/dL (<200); Estimated Glomerular Filt Rate 50; HDL Cholesterol 27 mg/dL (>40); Potassium 3.9 mmol/L (3.3-5.1); Sodium 138 mmol/L (135-145); Triglycerides 61 mg/dL (<150)
[2025-03-29 20:08] LABS: Prostate Specific Antigen 1.21 ng/mL (<0.05-4.0)
== END 2025-03-29 08:36 | disposition home or self-care (01) ==
LOC: HO.HMGCLDS 08:35
PROVIDERS: Nurse Practitioner Family; PCP Internal Medicine; Visit Provider Internal Medicine
DX: I11.0 Hypertensive heart disease with heart failure (principal); I50.9 Heart failure, unspecified; R60.0 Localized edema; I48.19 Other persistent atrial fibrillation; E11.9 Type 2 diabetes mellitus without complications; D50.9 Iron deficiency anemia, unspecified; E78.5 Hyperlipidemia, unspecified; L03.90 Cellulitis, unspecified; Z12.5 Encounter for screening for malignant neoplasm of prostate
CPT/HCPCS: 36415; 80048; 80061; 82306; 83036; 84153; 84450; 84460; 99212

== ENCOUNTER 2025-03-29 09:18 | Outpatient (AMB) | payer MEDICARE, SELFPAY ==
--- OUTSIDE RECORDS SUMMARY | 2025-03-20 10:45 | XMS_ITS ---
Author Organization [facility] Address [address] [place] [phone] Care Team Providers Care Graphic Specialist Name Role Phone John PENNY, Latoya Negrete Primary Care Provider Un available Francine Ibrahim Ciro [phone] Encounters Encounter Location Date Provider Diagnosis [address] [address] 03/20/2025 Francine Patrice Plan Of Treatment Next Appt Details Provider Name:Francine Ibrahim , 2025 01:30:00 PM, [address] [place] [address], [phone], Progress Notes * Alireza ROWAN MDOB: 4 (79 yo M)Acc No.[id number]:03/20/2025 Progress Note Patient: Alireza DENNISON Provider: Wen Ibrahim DPM :1945 A ge:79 Y S ex:Male Date:03/20/2025 Address:[address] [place] [phone] Pcp:Amol Yepez Subjective: * Chief Complaints: * [...] 0 03/20/2025 Generated for Floyd robertson/Marquis/Lorenzo on: 0 03/29/2025 09:19 AM EDT
--- NOTE | 2025-03-29 09:19 | AM.OFFWIN_ITS ---
Intake Vital Signs 03/29/25 09:40 Height 5 ft 11 in BP 120/60 Blood Pressure Location Lt brachial Position Sitting Pulse 90 Pulse Source Pulse Oximeter Temp 98.3 F Temp Source Oral Pulse Oximetry (%) 96 Oxygen Delivery Method Room Air Intake Visit Reasons: EP Leg pain Patient Tobacco Use Status: Never used Tobacco Allergies cephalexin (Keflex) Allergy (Intermediate, Verified 03/29/25 09:40) hives levofloxacin Allergy (Intermediate, Verified 03/29/25 09:40) Hives cetirizine (From Zyrtec) Adverse Reaction (Intermediate, Verified 03/29/25 09:40) Fatigue Do you need a note to return to daycare/school/sports/work: No HPI HPI Comments History of Present Illness Details 79 year old male hx of arrythmia, htn, h ld, bph presents to the clinic for evaluation of R leg pain and swelling X 10 days worsening. He reports fluid is also leaking out of his leg. He has heart issues but unclear if heart faliure. Not on diuretics. This has never happened to him before. He is on e liquis daily PE- w/ 3+ non pitting edema to RLE w/ overlying erythema and warmth. Palpable pulses b/l. Normal distal sensation. Hx and pe concerning for cellulitis w/ third spacing ? heart faliure. 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 Social History Household Members: None Housing: House Are you a primary dog daycare provider to a significant other at home: No Do you presently have visiting nurse or other home services: No Patient Tobacco Use Status: Never used Tobacco e-Cigarette/Vaping Use: Never Used Second Hand Smoke Exposure: Yes Advance Directives Date on File: 12/28/23 service: No Current occupational status: retired Cognitive needs: No Hearing needs: No Vision needs: Yes Review of Systems Const All systems reviewed & are unremarkable except as noted in HPI and below Physical Exam Exam Exam: Appearance: Alert.? Oriented X3.? No acute distress.? Head: Normocephalic, atraumatic, no step-offs or deformities Eyes: Pupils equal, round and reactive to light.? ENT: Pharynx normal.??External ears normal, TMs normal bilaterally and EAC's normal. No pain with manipulation of external ears bilaterally. No mastoid tenderness. Neck: Normal inspection.? Neck supple.? CVS: Normal heart rate and rhythm.? Pulses normal.? Respiratory: No respiratory distress.? Breath sounds normal.? Abdomen: Soft and nontender.? Skin: Skin warm and dry.? Normal skin color.? Normal skin turgor.? Extremities:3+ non pitting edema to RLE w/ overlying erythema and warmth. Palpable pulses b/l. Normal distal sensation. No calf ttp. 5/5 strength to bilateral upper and lower extremities Back: No midline tenderness, no C-spine tenderness, full range of motion, no CVA tenderness bilaterally Neuro: Oriented X 3.? No motor deficit.? No sensory deficit. CN 2-12 intact Vital Signs: Last Vital Signs Temp 98.3 F 03/29/25 09:40 Pulse 90 03/29/25 09:40 BP 120/60 03/29/25 09:40 Pulse Ox 96 03/29/25 09:40 Oxygen Delivery Method Room Air 03/29/25 09:40 vss Assessment & Plan Assessment & Plan (1) Congestive heart failure: Code(s): I50.9 - Heart failure, unspecified (2) Cellulitis: Code(s): L03.90 - Cellulitis, unspecified (3) Leg edema, right: Code(s): R60.0 - Localized edema Plan Patient will go w/ daugter inlaw to [facility] expect called Coding Level of Care Code Est Pt Level 3 (76400) Diagnoses Congestive heart failure I50.9 Cellulitis L03.90 Leg edema, right R60.0
--- OUTSIDE RECORDS SUMMARY | 2025-03-29 09:20 | XMS_ITS | Patient Health Record ---
Author Organization [facility] Address [address] [place] [address] Care Team Providers Care Trenching Machine Operator Name Role Phone John PENNY, Latoya Negrete Primary Care Provider Un available Black, Francine Unavailable [phone] Allergies Allergen (clinical drug ingredient) Drug/Non Drug [...] Polyneuropathy due to type 2 diabetes mellitus (423596853) Type 2 diabetes mellitus with diabetic polyneuropathy (E11.42) Active confirmed Vital Signs Blood pressure diastolic 76 mm Hg 01/09/2025 Height 5 ft 10 in in 01/09/2025 Blood pressure systolic 120 mm Hg 01/09/2025 Weight 228 lbs 01/09/2025 BMI 32.71 kg/m2 01/09/2025 Procedures Procedure Date Ordered Date Performed Result Body Sit e 91553-DYCGSPS NAIL, 6 OR MORE 06/03/2024 N/A 10464-OPNS SKIN LESIONS, OVER 4 06/03/2024 N/A 34300-AXEDTLO NAIL, 6 OR MORE 09/09/2024 N/A 45582-Nculsvmi Plate 09/09/2024 N/A 53364-CHZY SKIN LESIONS, OVER 4 09/09/2024 N/A 75075-Bsjlqbuf Plate 10/09/2024 N/A 04155-BCYJXHU NAIL, 6 OR MORE 12/16/2024 N/A 78259-Ykxswyhu Plate 12/16/2024 N/A 24735-BCUW SKIN LESIONS, OVER 4 12/16/2024 N/A 44764-Qvfcaneb Plate 01/09/2025 N/A 02996-Mwyeugff Plate Each Additional 01/09/2025 N/A Encounters Encounter Location Date Provider Diagnosis [address] [address] 06/03/2024 Francine Black Type 2 diabetes mellitus with diabetic polyneuropathy E11.42 ; Tinea unguium B35.1 ; Ingrown nail L60.0 and Edema, lower extremity R60.[address] [address] 09/09/2024 Francine Black Type 2 diabetes mellitus with diabetic polyneuropathy E11.42 ; Other hammer toe(s) (acquired), right foot M20.41 ; Tinea unguium B35.1 ; Ingrown nail L60.0 ; Edema, lower extremity R60.0 and Other hammer toe(s) (acquired), left foot M20.[address] [address] 10/09/2024 Francine Black Ingrown nail L60.0 a nd Type 2 diabetes mellitus with diabetic polyneuropathy E11.[address] [address] 12/16/2024 Francine Black Type 2 diabetes mellitus with diabetic polyneuropathy E11.42 ; Edema, lower extremity R60.0 ; Ingrown nail L60.0 and Tinea unguium B35.1 [facility] [address] [address] 01/09/2025 Francine Black Ingrown nail L60.0 a nd Type 2 diabetes mellitus with diabetic polyneuropathy E11.[address] [facility] [address] 10/08/2024 Francine Black [facility] [address] 01/08/2025 Francine Black [facility] [address] [address] 03/20/2025 Francine Black Assessments Encounter Date Diagnosis [...] Order Date Microalbumin, 24 hr Urine 06/23/2015 85388-CUEFTKP NAIL, 6 OR MORE 12/16/2024 36830-VXPXBBU NAIL, 6 OR MORE 02/02/2023 17762-MAEOJHR NAIL, 6 OR MORE 05/11/2023 97549-LSBKPSH NAIL, 6 OR MORE 08/10/2023 07568-TOCFVSF NAIL, 6 OR MORE 11/13/2023 98237-WMTDZLZ NAIL, 6 OR MORE 02/26/2024 38477-ZQYQMXR NAIL, 6 OR MORE 06/03/2024 87680-XAYOHXH NAIL, 6 OR MORE 09/09/2024 30568-GNWICDL NAIL, 6 OR MORE 05/05/2011 15017-TKHVPII NAIL, 6 OR MORE 09/19/2011 31103-DDVRTAP NAIL, 6 OR MORE 11/03/2011 29501-LEOTRPA NAIL, 6 OR MORE 12/05/2011 77594-FIAJUMC NAIL, 6 OR MORE 11/27/2012 51036-JPKQFAN NAIL, 6 OR MORE 07/29/2013 24713-AMAQGSO NAIL, 6 OR MORE 01/27/2014 46694-OHMMFXM NAIL, 6 OR MORE 09/04/2015 27815-LYROQLL NAIL, 6 OR MORE 12/02/2015 92037-HKLCJTH NAIL, 6 OR MORE 02/08/2016 42785-AXTAXGK NAIL, 6 OR MORE 04/25/2016 45800-XLIJGIZ NAIL, 6 OR MORE 07/11/2016 77345-SPPTKXM NAIL, 6 OR MORE 09/08/2016 04543-IOBCZEW NAIL, 6 OR MORE 11/17/2016 85200-ISUHMIP NAIL, 6 OR MORE 02/02/2017 89131-FKFEVKO NAIL, 6 OR MORE 04/11/2017 59527-SGCNDBJ NAIL, 6 OR MORE 07/05/2017 08089-VPRLLGJ NAIL, 6 OR MORE 09/14/2017 92905-VEAGXSM NAIL, 6 OR MORE 11/20/2017 72822-MEBKQKX NAIL, 6 OR MORE 01/29/2018 71369-JWZRQSG NAIL, 6 OR MORE 06/12/2018 13280-WDVFLXG NAIL, 6 OR MORE 08/27/2018 42907-ZINYQAS NAIL, 6 OR MORE 11/05/2018 78062-OYHULQD NAIL, 6 OR MORE 03/05/2019 11994-TWFWIUL NAIL, 6 OR MORE 05/13/2019 56586-MTGNMYI NAIL, 6 OR MORE 08/05/2019 26498-ABWRIOF NAIL, 6 OR MORE 10/28/2019 00804-FASRXPT NAIL, 6 OR MORE 03/26/2020 92182-JESDFNL NAIL, 6 OR MORE 12/23/2019 45991-YSIFDMV NAIL, 6 OR MORE 06/11/2020 91362-VTMNPWX NAIL, 6 OR MORE 08/20/2020 44908-HZRUILC NAIL, 6 OR MORE 10/22/2020 75879-EVSPZZR NAIL, 6 OR MORE 12/31/2020 75953-DLKNUDP NAIL, 6 OR MORE 04/19/2021 92305-WSBJIJS NAIL, 6 OR MORE 07/15/2021 31272-XGBDSXD NAIL, 6 OR MORE 10/04/2021 36121-LPZNMDR NAIL, 6 OR MORE 02/08/2022 87906-NCVJIPI NAIL, 6 OR MORE 04/25/2022 70380-KJVGYOB NAIL, 6 OR MORE 08/01/2022 87468-WBURECA NAIL, 6 OR MORE 11/03/2022 04391-UCPCPZK NAIL, 1-5 04/03/2015 24995-MWAQVHS NAIL, 1-5 06/16/2015 43279-OQAZEVV NAIL, 1-5 07/28/2014 78148-MUJSBXB NAIL, 1-5 04/30/2012 30682-CXQLXHI NAIL, 1-5 11/27/2014 40064-YHZLGVK NAIL, 1-5 01/26/2015 76974-Cjpk Destruction, -14 04/25/2022 89384-Errg Destruction, -14 08/01/2022 65120-Efii Destruction, -14 11/03/2022 66700-Zlrvuwez Plate 09/09/2024 44934-Jlygfoic Plate 10/09/2024 87055-Fbjzqlzy Plate 02/26/2024 38899-Ifpestpt Plate 11/13/2023 48040-Gukoxvyq Plate 12/16/2024 69923-Qkjsgxwr Plate 01/09/2025 08150-Uomvfdjw Plate 11/03/2022 48678-Thbqwdmp Plate 02/02/2023 04601-Qzhmindv Plate 02/08/2022 53293-Wqzuewhl Plate 10/04/2021 50670-Lojluuah Plate 10/28/2019 14498-Ghpsjqka Plate 04/19/2021 76439-Njoychxs Plate 12/31/2020 74957-Egfqydyx Plate 01/16/2020 51694-Ecaljkcz Plate 01/23/2020 42722-Cfltmeuf Plate 03/05/2019 60775-Gndgfrog Plate 05/13/2019 00449-Tmlrzuas Plate 08/27/2018 74879-Brbicbry Plate 01/29/2018 33230-Kffrrzsr Plate 06/12/2018 03991-Njpovadl Plate 01/26/2015 72874-Cvafnhnm Plate 04/03/2015 26589-Sisxrqoi Plate 01/27/2014 87042-Rqjpnosc Plate 03/13/2014 32422-Icdpyeii Plate 07/29/2013 63544-Bahqckbl Plate 11/27/2012 07893-Gujedici Plate 03/09/2012 45723-Itpqfyme Plate 04/30/2012 43476-Akudrwuz Plate 12/05/2011 45825-Hbhdrbwu Plate 02/23/2012 37203-Pjineiqv Plate 11/03/2011 66889-Itvztzdm Plate 09/19/2011 11263-Fivxyplr Plate 05/05/2011 73605-Nchrsjsn Plate 06/06/2011 32341-Tkppqxwk Plate 07/28/2014 57767-Hmcbaufj Plate 11/27/2014 02026-Mqhvlsbt Plate 07/11/2016 91743-Okeiujln Plate 04/25/2016 37077-Toeaaqkp Plate 09/14/2017 11100-Uzdpovlp Plate 04/11/2017 01845-Apspoyep Plate 02/08/2016 78450-Lweyngim Plate 11/17/2016 52993-Gzjdcckr Plate 09/08/2016 71924-Scroxbkp Plate Each Additional 25510-Pqgatdtx Plate Each Additional 09/2011 97983-Qkxihdxy Plate Each Additional 64131-Fdxmelfs Plate Each Additional 01/2012 98771-Zwaljzfq Plate Each Additional 66894-Uydzuhsg Plate Each Additional 95839-Gycrdzhc Plate Each Additional 80790-Bnvdummr Plate Each Additional 07/2020 71852-Hqudsnse Plate Each Additional 03/2022 34919-Qckxabjc Plate Each Additional 04/2025 19505-OLX 01/11/2012 46000- Debride <25 sq cm 01/30/2012 84688- Debride <25 sq cm 02/23/2012 66876- Debride <25 sq cm 04/30/2012 90967- Debride <25 sq cm 04/24/2017 65546- Debride <25 sq cm 01/30/2020 62659- Debride <25 sq cm 02/13/2020 94962- Debride <25 sq cm 02/27/2020 71276- Debride <25 sq cm 01/23/2020 75580- Debride <25 sq cm 03/26/2020 92592- Debride <25 sq cm 04/06/2020 87110-OVJWJSR SKIN/TISSUE 03/09/2012 66154 I&D ABSCESS- SIMPLE,SINGLE 014 37997 I&D ABSCESS- SIMPLE,SINGLE 022 91583-YNOD SKIN LESIONS, OVER 4 10/05/19 22 65650-VQRE SKIN LESIONS, OVER 4 08/01/19 23 96921-VRGJ SKIN LESIONS, OVER 4 04/25/20 22 14446-VHDF SKIN LESIONS, OVER 4 02/03/20 23 05477-RLED SKIN LESIONS, OVER 4 11/04/19 23 49969-GXYA SKIN LESIONS, OVER 4 12/23/19 20 61137-YNJC SKIN LESIONS, OVER 4 10/28/19 20 12312-WCUG SKIN LESIONS, OVER 4 08/27/19 19 33118-DTBM SKIN LESIONS, OVER 4 06/12/20 18 55609-LOYX SKIN LESIONS, OVER 4 01/30/20 18 46337-VCKG SKIN LESIONS, OVER 4 11/06/19 19 11558-HWTN SKIN LESIONS, OVER 4 03/05/20 19 76819-SJFW SKIN LESIONS, OVER 4 05/13/20 19 32287-VQEZ SKIN LESIONS, OVER 4 08/05/19 20 07797-GYZJ SKIN LESIONS, OVER 4 04/03/20 15 84436-ZYRE SKIN LESIONS, OVER 4 07/05/19 18 15441-GRYR SKIN LESIONS, OVER 4 04/11/20 17 77519-OJUS SKIN LESIONS, OVER 4 11/21/19 18 14481-PKQS SKIN LESIONS, OVER 4 09/15/19 18 29088-DUSE SKIN LESIONS, OVER 4 11/18/19 17 05083-FAGJ SKIN LESIONS, OVER 4 09/09/19 17 87590-YDKH SKIN LESIONS, OVER 4 02/03/20 17 74583-DYQM SKIN LESIONS, OVER 4 04/25/20 16 03303-DXJB SKIN LESIONS, OVER 4 07/11/19 17 93896-AMDX SKIN LESIONS, OVER 4 02/08/20 16 67402-GQCL SKIN LESIONS, OVER 4 12/02/19 16 74771-LSRC SKIN LESIONS, OVER 4 09/04/19 16 94181-UEQK SKIN LESIONS, OVER 4 06/16/20 15 83291-IELL SKIN LESIONS, OVER 4 11/13/19 24 34339-BKIN SKIN LESIONS, OVER 4 02/26/20 24 62249-UHQR SKIN LESIONS, OVER 4 08/10/19 24 13348-EFTM SKIN LESIONS, OVER 4 05/11/20 23 12730-WLXU SKIN LESIONS, OVER 4 12/17/19 25 63861-SRYP SKIN LESIONS, OVER 4 09/10/19 25 66553-BJAO SKIN LESIONS, OVER 4 06/03/20 24 32626-BWTH SKIN LESIONS, 2 TO 4 03/26/20 20 07469-QESF SKIN LESIONS, 2 TO 4 06/11/20 20 85484-GFZQ SKIN LESIONS, 2 TO 4 08/20/19 21 95875-JXYE SKIN LESIONS, 2 TO 4 02/09/20 22 82673-KQWI SKIN LESIONS, 2 TO 4 07/15/19 22 12769-ZYUR SKIN LESIONS, 2 TO 4 04/19/20 21 91304-KLPJ SKIN LESIONS, 2 TO 4 01/01/20 21 84654-MXGK SKIN LESIONS, 2 TO 4 10/23/19 21 U7696-MJKLXATZ DYSTROPHIC NAILS ANY # Next Appt Details Provider Name:Francine Warner Patrice , 2025 01:30:00 PM, [address] [place], [address], Insurance Providers Payer Name Payer Address Payer Phone Subscriber Number Group Number Insured Name Patient Relationship to Insured Coverage Start Date Coverage End Date [employer] Medicare [id number] [address] [address] [place] [address] [id number] NeryAlireza leavitt Self - patient is the insured 6 Medical (General) History Medical History History ICD Code mumps back, hip, knee pain type II diabetes Hay fever Other hammer toe(s) (acquired), right fo ot M20.41 Other hammer toe(s) (acquired), left jasmin t M20.42 Surgical History Surgery Date(Month/Year) left knee arthroscopy 1995 left knee replacement 08/28/2012
--- OUTSIDE RECORDS SUMMARY | 2025-03-29 09:20 | XMS_ITS | Patient Health Record ---
Author Organization [facility] Address [address] [place] [address] Care Team Providers Care Concierge Manager Name Role Phone John PENNY, Latoya Primary Care Provider Isma Vu [phone] Allergies Allergen (clinical drug ingredient) Drug/Non Drug [...] Problem Status W/U Status Risk Notes Problem 561944854 Encounter for screening for malignant neoplasm of colon (Z12.11) Active confirmed Problem 749425189 History of adenomatous polyp of colon (Z86.010) Active confirmed Problem Iron deficiency anemia (00443324) Iron deficiency anemia (D50.9) Active confirmed Problem 827459167 Preprocedural examination (Z01.818) Active confirmed Problem History of polyp of colon (075743134) History of colon polyps (Z86.010) Active confirmed Problem 058231808 Long-term use of aspirin therapy (Z79.82) Active confirmed Problem 18448068 Constipation, unspecified constipation type (K59.00) Active confirmed Problem 33840703 Other iron deficiency anemia (D50.8) Active confirmed Problem 875247989 Anticoagulant long-term use (Z79.01) Active confirmed Problem 94244476 Iron deficiency anemia, unspecified iron deficiency anemia type (D50.9) Active confirmed Problem 85089851 Mucosal abnormality of duodenum (K31.9) Active confirmed Problem Diverticulosis of colon (716456798) Diverticulosis of colon (K57.30) Active confirmed Vital Signs Blood pressure diastolic 00 mm Hg 04/09/2024 Height 70 in 04/09/2024 Blood pressure systolic 00 mm Hg 04/09/2024 Weight 244 lbs 04/09/2024 BMI 35.01 kg/m2 04/09/2024 Encounters Encounter Location Date Provider Diagnosis [facility] [address] [facility] [address] [place] [address] 04/09/2024 Isma Yepez Iron deficiency anemia D50.9 [...] Provider Name:Isma Yepez , 04/08/2025 09:30:00 AM, [address] [place] [address], [address], [place], [address], Insurance Providers Payer Name Payer Address Payer Phone Subscriber Number Group Number Insured Name Patient Relationship to Insured Coverage Start Date Coverage End Date [facility] [address] [address] [place] [address] [id number] ALIX ROWAN Self - patient is the insured Medical (General) History Medical History History ICD Code Colonoscopy 07-20-2007 and 2003--tubular adenomas removed Hyperlipidemia NIDDM Hypertension Denies TX,CVA,Lung disease,renal disease BPH Colonoscopy in 04/2013 with [...]
[2025-03-29 09:40] VITALS: BP 120/60; PULSE 90; TEMP 36.8; O2SAT 96
== END 2025-03-29 10:38 | disposition home or self-care (01) ==
PROVIDERS: PCP Internal Medicine; Visit Provider Physician Assistant
DX: I50.9 Heart failure, unspecified (principal); L03.90 Cellulitis, unspecified; R60.0 Localized edema

== ENCOUNTER 2025-03-29 10:17 | Inpatient (IN) | payer MEDICARE, SELFPAY ==
--- NOTE | ~2025-03-29 | XR_ITS ---
CLINICAL HISTORY: ? CHF 1 view chest x-ray Comparison: CT/SR - CT CHEST WITHOUT IV CONTRAST - 03/13/25 12:34 EDT CR/SR - XR CHEST 1 VIEW - 03/13/25 12:30 EDT Findings: Small bilateral pleural effusions. Perihilar and bibasilar opacities concerning for pulmonary edema though pneumonia can not be excluded. No pneumothorax. Cardiomediastinal silhouette is stable. Aortic atherosclerosis. No acute fracture. IMPRESSION: 1. Small bilateral pleural effusions. 2. Perihilar and bibasilar opacities, concerning for pulmonary edema; pneumonia cannot be excluded. This document has been electronically signed by: Sabrina Eckert MD on 03/29/2025 18:00:05
[2025-03-29 10:28] VITALS: BP 168/64; PULSE 108; RESP 16; TEMP 36.4; O2SAT 96; BMI 26.4
--- NOTE | 2025-03-29 10:57 | PC.NURSE ---
Addendum entered by Malu Sneed RN 03/29/25 19:07: Pt responding to lasix well, see I&O Original Note: Pt here w/ c/o increased bilat LE edema and weeping x 1 week. Pt states he was most recently in the hospital in [place] x 1 mo, released at the end of January secondary to CHF exacerbation. Family member at bedside states during this hospitalization pt had to be intubated several times d/t fluid build-up . When pt was finally stable and returned to area, pt was later hospitalized here at [facility] for increased weakness. Pt has been home approx 1 week.
[2025-03-29 12:08] LABS: MANUAL DIFF FLAG NO
[2025-03-29 12:10] LABS: Hematocrit 29.3 % (42.0-52.0); Hemoglobin 9.5 g/dl (14.0-18.0); Imm Gran Abs Auto 0.06 X10*3/uL (0.00-0.03); Imm Gran Pct Auto 0.8 % (0.0-0.4); Lymphocytes Absolute Auto 1.0 X10*3/uL (1.2-4.9); Mean Corpuscular HGB Conc 32.4 g/dl (31.0-36.0); Mean Corpuscular Hemoglobin 28.5 pg (27.0-33.0); Mean Corpuscular Volume 88.0 fL (80.0-98.0); NRBC Abs Auto 0.000 X10*3/uL (0.0-0.012); NRBC Pct Auto 0.0 /100WBC (0.0-0.2); Platelet Count 199 X10*3/uL (160-400); Red Blood Count 3.33 X10*6/uL (4.60-5.80); White Blood Count 7.5 X10*3/uL (4.8-10.8)
[2025-03-29 12:37] LABS: Alanine Aminotransferase 8 U/L (0-40); Albumin Level 3.6 g/dL (3.5-5.0); Alkaline Phosphatase 177 U/L (39-117); Anion Gap 12 (12-20); Aspartate Amino Transferase 12 U/L (5-37); Blood Urea Nitrogen 17 mg/dL (9-16); Calcium 9.0 mg/dL (8.4-10.2); Carbon Dioxide 26 mmol/L (22-29); Chloride 105 mmol/L (96-108); Creatinine Clr Calc Pharmacy 44.4; Estimated Glomerular Filt Rate 47; Potassium 3.8 mmol/L (3.3-5.1); Sodium 139 mmol/L (135-145); Total Protein 6.2 g/dL (6.5-8.0)
[2025-03-29 12:44] LABS: NT Pro B Type Natriuretic Pept 2388.4 pg/mL (<300)
--- NOTE | 2025-03-29 13:04 | ED.SKABFB ---
HPI - Skin/Abscess/Foreign Bdy General Chief complaint: Skin/Abscess/Foreign Body Stated complaint: leg infections sent from urgent care Time Seen by Provider: 03/29/25 12:41 Source: patient and family Mode of arrival: ambulatory Limitations: no limitations History of Present Illness ED Provider: Dr. Calvin Fabian HPI narrative: 79-year-old male with a history of atrial fibrillation on on apixaban, HTN, HFrEF (LVEF 40-45%), HLD , chronic kidney disease who was referred to the emergency department from urgent care for evaluation of bilateral lower extremity erythema, increased lower extremity swelling with weeping edema. Patient states that he has chronic redness to his lower extremities but this redness has increased over the last week. He denies any pain in his lower extremities. He states he weighs himself daily unusually weighs around 222 lb and he has gained a proximally 2 lb over the last week. He denied fever, chills, chest pain, shortness of breath, dyspnea on exertion, nausea, vomiting, diarrhea. He believes that he has slightly decreased urine output compared to his baseline. The patient was [place] [facility]13[place] until 03/20/2025 for evaluation of progressive weakness, fall and acute kidney injury (felt to be secondary to aggressive diuretics). Patient also had a prolonged hospitalization for 36 days while he was in [facility], he was intubated twice during that admission. Related Data Home Medications ?Medication ?Instructions ?Recorded ?Confirmed acetaminophen 500 mg tablet 500 mg PO Q6H PRN Fever Or Pain 03/13/25 03/24/25 aspirin 81 mg tablet 81 mg PO DAILY 03/13/25 03/24/25 atorvastatin 40 mg tablet (Lipitor) 40 mg PO BEDTIME 03/13/25 03/24/25 Previous Rx's ?Medication ?Instructions ?Recorded blood sugar diagnostic (OneTouch #100 ea 09/24/24 Verio test strips) blood-glucose meter (OneTouch #1 ea 09/24/24 Verio Flex Meter) lancets (Accu-Chek Softclix #100 ea 09/24/24 Lancets) tamsulosin 0.4 mg capsule 0.4 mg PO DAILY 90 days #90 caps 12/25/24 apixaban 2.5 mg tablet (Eliquis) 2.5 mg PO BID 30 days #60 tabs 03/20/25 polyethylene glycol 3350 17 gram 17 g PO DAILY PRN Constipation 14 03/20/25 oral powder packet days #14 ea sennosides 8.6 mg tablet (Senna 8.6 mg PO DAILY PRN Constipation 03/20/25 Lax) #14 tabs Allergies Allergy/AdvReac Type Severity Reaction Status Date / Time cephalexin (Keflex) Allergy Intermediate hives Verified 03/29/25 10:31 levofloxacin Allergy Intermediate Hives Verified 03/29/25 10:31 cetirizine (From [facility]) AdvReac Intermediate Fatigue Verified 03/29/25 10:31 Review of Systems Review of Systems: Yes all other systems are reviewed and are negative PMFSH Past Medical History Medical History Weakness Hypertensive retinopathy Posterior vitreous detachment, left eye Epiphora due to excess lacrimation of right side Senile ectropion of right lower eyelid BPH (benign prostatic hyperplasia) Type 2 diabetes mellitus without complication, with no history of insulin use Normocytic anemia Thrombocytopenia COVID-19 vaccine series completed 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 Social History Social History Household Members: None Housing: House Are you a primary campground caretaker to a significant other at home: No Do you presently have visiting nurse or other home services: No Patient Tobacco Use Status: Never used Tobacco Smoked in Last 30 Days: No e-Cigarette/Vaping Use: Never Used Second Hand Smoke Exposure: Yes Use of substances other than those prescribed or required for medical reasons: No Advance Directives: Yes Advance Directives on File: Yes Advance Directives Date on File: 12/28/23 service: No Current occupational status: retired Cognitive needs: No Hearing needs: No Vision needs: Yes Physical Exam Vital Signs: Vital Signs: Last Vital Signs Temp 97.5 F 03/29/25 10:28 Pulse 108 H 03/29/25 10:28 Resp 16 03/29/25 10:28 BP 150/66 H 03/29/25 13:56 Pulse Ox 96 03/29/25 10:28 O2 Del Method Room Air 03/29/25 10:28 BMI result Body Mass Index 26.4 Vital signs revealed an elevated blood pressure of 168/64 and an elevated heart rate of 108 otherwise unremarkable Exam: General: Awake, alert in no distress Head: Normocephalic, atraumatic EENT: PERRL, sclera and conjunctiva are normal, mouth with no erythema or exudates Neck: Supple, no adenopathy Lung: breath sounds symmetric, no wheezing, no rales and no rhonchi Chest: symmetric movement, nontender Heart: regular rate and rhythm, normal S1, S2 no murmurs or rubs Abdomen: soft, non-tender, nondistended, normal bowel sounds Extremities: Trace to 1+ pitting , weak. edema, circumferential erythema to the calf sparing the feet, ankles , extending to below the knee. Erythema is warm to the touch Neuro: Awake, alert, oriented, normal speech, cranial nerves 2-12 intact, moves all extremities symmetrically Psych: Pleasant, cooperative Medications Administered Discontinued Medications Generic Name Dose Route Start Last Admin Trade Name Freq PRN Reason Stop Dose Admin Furosemide 40 mg 03/29/25 13:11 03/29/25 13:56 Furosemide 40 Mg/4 Ml Vial IVPUSH 03/29/25 13:12 40 mg ONCE ONE Administration Protocol Piperacillin Sod/Tazobactam 100 mls @ 200 mls/hr 03/29/25 13:11 03/29/25 13:55 Sod 4.5 gm/ Sodium Chloride IV 03/29/25 13:40 200 mls/hr ONCE ONE Administration Medical Decision Making Medical Decision Making MDM Narrative: 79-year-old male with a history of atrial fibrillation on on apixaban, HTN, HFrEF (LVEF 40-45%), HLD , chronic kidney disease who was referred to the emergency department from urgent care for evaluation of bilateral lower extremity erythema, increased lower extremity swelling with weeping edema. Patient states that he has chronic redness to his lower extremities but this redness has increased over the last week. He denies any pain in his lower extremities. He states he weighs himself daily unusually weighs around 222 lb and he has gained a proximally 2 lb over the last week. He denied fever, chills, chest pain, shortness of breath, dyspnea on exertion, nausea, vomiting, diarrhea. He believes that he has slightly decreased urine output compared to his baseline. Vital signs revealed an elevated blood pressure and elevated pulse otherwise unremarkable. Exam is consistent with trace to 1+ , weeping, pitting edema with circumferential erythema bilaterally symmetric sparing the feet, ankles and is below the knee. Erythema is warm to the touch. Differential diagnosis: ?Includes but is not limited to lymphedema, peripheral edema, cellulitis, chronic venous stasis dermatitis, fluid overload, anemia, electrolyte abnormalities Course: 14:15 My independent interpretation patient's laboratory evaluation as follows WBC was normal 7500. Chronic normocytic anemia with an H&H of 9.5 and 29.3. BUN and creatinine elevated 17 and 1.43 with GFRElectrolytes were normal. Glucose elevated 147. Lactic acid normal 1.1. Alk-phos elevated 177. NT-BNP elevated 2388.4-most likely elevated secondary to the peripheral edema and not CHF. Given the patient's 2 lb weight gain, weeping edema and increased erythema, I am concerned that the patient may have cellulitis. The patient was treated with furosemide 40 mg IV and Zosyn 4.5 g IV. I will discuss admission with the covering hospitalist. 14:52 I did discuss the patient's presentation over [facility] with the covering hospitalist, nurse practitioner Janelle Pompa and the patient was accepted to the hospitalist service for further treatment. Differential Diagnosis Differential Diagnoses: The differential diagnosis associated with the presentation includes (See above) Admission/Observation Consideration of admission/observation: Escalation of care including admission/observation considered (Yes) Consult Healthcare Provider Management of the patient was discussed with: Hospitalist Lab Data [facility] Lab Attestation statement: I reviewed the patient's lab results. 03/29/25 12:03 03/29/25 12:03 Labs: Lab Results 03/29/25 03/29/25 Range/Units 12:03 13:19 WBC 7.5 (4.8-10.8) X10*3/uL RBC 3.33 L (4.60-5.80) X10*6/uL Hgb 9.5 L (14.0-18.0) g/dl Hct 29.3 L (42.0-52.0) % MCV 88.0 (80.0-98.0) fL MCH 28.5 (27.0-33.0) pg MCHC 32.4 (31.0-36.0) g/dl RDW 21.4 H (11.0-16.0) % Plt Count 199 D (160-400) X10*3/uL MPV 10.3 (9.4-12.4) fL Immature Gran % (Auto) 0.8 H (0.0-0.4) % Neut % (Auto) 73.5 H (45-73) % Lymph % (Auto) 13.5 L (20-40) % [place] % (Auto) 8.9 (2-11) % Eos % (Auto) 2.5 (0-4) % Baso % (Auto) 0.8 (0-2) % Lymph # (Auto) 1.0 L (1.2-4.9) X10*3/uL [place] # (Auto) 0.7 (0.1-1.2) X10*3/uL Eos # (Auto) 0.2 (0.0-0.4) X10*3/uL Baso # (Auto) 0.1 (0.0-0.2) X10*3/uL Abs Immat Gran (auto) 0.06 H (0.00-0.03) X10*3/uL Absolute Neuts (auto) 5.5 (2.0-8.3) x10*3/uL Absolute Nucleated RBC 0.000 (0.0-0.012) X10*3/uL Nucleated RBC % (auto) 0.0 (0.0-0.2) /100WBC Sodium 139 (135-145) mmol/L Potassium 3.8 (3.3-5.1) mmol/L Chloride 105 (96-108) mmol/L Carbon Dioxide 26 (22-29) mmol/L Anion Gap 12 (12-20) BUN 17 H (9-16) mg/dL Creatinine 1.43 H (0.5-1.4) mg/dL Estim Creat Clear Calc 44.4 Estimated GFR 47 Random Glucose 147 H (60-115) mg/dL Lactic Acid 1.1 (0.5-2.0) mmol/L Calcium 9.0 (8.4-10.2) mg/dL Total Bilirubin 0.7 (0.0-1.0) mg/dL AST 12 (5-37) U/L ALT 8 (0-40) U/L Alkaline Phosphatase 177 H (39-117) U/L NT-Pro-B Natriuret Pep 2388.4 H (<300) pg/mL Total Protein 6.2 L (6.5-8.0) g/dL Albumin 3.6 (3.5-5.0) g/dL Independent Historian Clinical information obtained from an independent historian. History obtained from or confirmed by: Other ([id number]) External Record Review External record reviewed: Inpatient record Chronic Conditions Patient?s care impacted by: Diabetes, Hypertension and Other (Cardiomyopathy) Discharge Plan Discharge Print Language: Belarusian
[2025-03-29 13:56] VITALS: BP 150/66
[2025-03-29] MEDS: Furosemide 40 MG/4 ML VIAL IVPUSH (13:56)
--- NOTE | 2025-03-29 15:01 | PM.IMHP ---
History of Present Illness Date of Service: 03/29/25 Chief Complaint: Leg swelling 79-year-old male with a history of atrial fibrillation on on apixaban, HTN, HFrEF (LVEF 40-45%), HLD , chronic kidney disease who was referred to the emergency department from urgent care for evaluation of bilateral lower extremity erythema, increased lower extremity swelling with weeping edema. He has chronic LE erythema but over the last week. He denied pain, nausea, vomting , diarrhea. He did say that he gained 2 lbs over the last 5 days and has had decreased urine output. He was admitted to [facility] from 03/13 to 03/20 and treated for weakness and VERENA from diuresis. He also had a prolonged hospital stay of almost 40 days in [place] where he required intubation. In the ER, patient was noted to have elevated BNP of 2388, creatinine 1.43. He received a dose of Zosyn, vancomycin, IV Lasix in the ER. He will be admitted for further management and treatment of acute CHF with chronic venous stasis to lower extremities Review of Systems Review of Systems: Denies any recent fever chills or decrease in appetite respiratory denies any shortness of breath or cough cardiovascular denied chest pain gastrointestinal denies any dysphagia abdominal pain nausea vomiting or diarrhea genitourinary denies any dysuria frequency or hematuria musculoskeletal denies any joint pain or swelling neuropsych denies any weakness or seizures all other systems reviewed are negative [facility] Medical History Weakness Hypertensive retinopathy Posterior vitreous detachment, left eye Epiphora due to excess lacrimation of right side Senile ectropion of right lower eyelid BPH (benign prostatic hyperplasia) Type 2 diabetes mellitus without complication, with no history of insulin use Normocytic anemia Thrombocytopenia COVID-19 vaccine series completed 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 Surgical History Status post cardiac catheterization Hx of cardiac catheterization History of hydrocelectomy Hx of transurethral resection of prostate H/O colonoscopy Deviated septum History of left knee replacement Social History Household Members: None Housing: House Are you a primary ostomy care nurse to a significant other at home: No Do you presently have visiting nurse or other home services: No Patient Tobacco Use Status: Never used Tobacco Smoked in Last 30 Days: No e-Cigarette/Vaping Use: Never Used Second Hand Smoke Exposure: Yes Use of substances other than those prescribed or required for medical reasons: No Advance Directives: Yes Advance Directives on File: Yes Advance Directives Date on File: 12/28/23 service: No Current occupational status: retired Cognitive needs: No Hearing needs: No Vision needs: Yes Meds Allergies Allergy/AdvReac Type Severity Reaction Status Date / Time cephalexin (Keflex) Allergy Intermediate hives Verified 03/29/25 10:31 levofloxacin Allergy Intermediate Hives Verified 03/29/25 10:31 cetirizine (From Zyrtec) AdvReac Intermediate Fatigue Verified 03/29/25 10:31 Home Medications ?Medication ?Instructions ?Recorded ?Confirmed ?Last Taken ?Type acetaminophen 500 mg tablet 500 mg PO Q6H PRN Fever Or Pain 03/13/25 03/29/25 Unknown History aspirin 81 mg tablet 81 mg PO DAILY 03/13/25 03/29/25 03/29/25 History Physical Exam Vital Signs and Narrative: Vital Signs: Last Vital Signs Temp 97.5 F 03/29/25 10:28 Pulse 108 H 03/29/25 10:28 Resp 16 03/29/25 10:28 BP 150/66 H 03/29/25 13:56 Pulse Ox 96 03/29/25 10:28 O2 Del Method Room Air 03/29/25 10:28 BMI result Body Mass Index 26.4 Appearing in no acute distress head is normocephalic atraumatic eyes pupils are PERRLA sclera is anicteric mouth throat mucous membranes are intact and moist neck is supple no lymphadenopathy, no JVD noted lung sounds rales and dim heart regular rate rhythm, clear S1, S2 positive bowel sounds, abdomen is soft, nontender neuro patient is alert x3, no focal deficits Bilateral LE erythema with weeping Results Labs 03/29/25 12:03 03/29/25 12:03 Labs: Laboratory Results - last 24 hr 03/29/25 03/29/25 12:03 13:19 MCV 88.0 MCH 28.5 MCHC 32.4 RDW 21.4 H Plt Count 199 D MPV 10.3 Immature Gran % (Auto) 0.8 H Neut % (Auto) 73.5 H Lymph % (Auto) 13.5 L [place] % (Auto) 8.9 Eos % (Auto) 2.5 Baso % (Auto) 0.8 Lymph # (Auto) 1.0 L [place] # (Auto) 0.7 Eos # (Auto) 0.2 Baso # (Auto) 0.1 Abs Immat Gran (auto) 0.06 H Absolute Neuts (auto) 5.5 Absolute Nucleated RBC 0.000 Nucleated RBC % (auto) 0.0 Anion Gap 12 Estim Creat Clear Calc 44.4 Estimated GFR 47 Random Glucose 147 H Lactic Acid 1.1 Calcium 9.0 Total Bilirubin 0.7 AST 12 ALT 8 Alkaline Phosphatase 177 H NT-Pro-B Natriuret Pep 2388.4 H Total Protein 6.2 L Albumin 3.6 Assessment and Plan (1) Cardiomyopathy: Status: Acute Plan 79 year old man admitted for Bilateral LE cellulitis with likely component of chronic venous stasis Mild HFrEF, no hypoxia ProBNP 2388 IV lasix Daily weights strict intake and output cardiology consultation echocardiogram Chronic venous stasis mild weeping Vancomycin and zosyn x1 likely from fluid overload Wrap for compression elevate extremities can use topical steroids if warranted Persistent atrial fibrillation No exacerbation continue eliquis not on rate lowering medication Diabetes mellitus type 2 A1C 7.3 Sliding scale, ADA diet Normocytic anemia No active bleeding Stable H&H CKD stage IIIA Baseline BPH Tamsulosin HLD asa and statin DVT prophylaxis with Eliquis Full code Quality Stroke Does the patient have a stroke diagnosis?: No VTE Prior VTE?: No VTE Risk Level:: Medical - moderate - high VTE Device Contraindication: Treatment Not Indicated VTE Drug Contraindication: N/A - Med Ordered
--- NOTE | 2025-03-29 15:05 | PC.NURSE ---
Hospitalist here for eval
--- NOTE | 2025-03-29 16:11 | PHA.MEDREC ---
Addendum entered by Rema Rodarte [facility] 03/29/25 16:25: Reviewed by [facility] Addendum entered by Alireza Keenan 03/29/25 16:19: Contacted daughter to confirm patient was no longer taking atorvastitin and miralax. She confirmed that he had seen his primary and had been taken off of these medications. Original Note: Pharmacy Consult ? Medication Reconciliation Pharmacy has completed the medication reconciliation. Confirmed medication list with patient and patient's daughter. Patient takes senna lax at night for constipation. Patient took aspirin, eliqius, and tamsulosin this morning.
[2025-03-29 17:09] VITALS: BP 145/67; PULSE 88; TEMP 37.1; O2SAT 98
[2025-03-29 18:58] VITALS: BP 135/67; PULSE 89; RESP 18; TEMP 36.7; O2SAT 98
[2025-03-29 19:08] LABS: Glucose, Whole Blood 164 mg/dL (60-115)
[2025-03-29 19:09] LABS: Appearance Urine Clear; Glucose Urine UA Negative (Negative); PH 6.5 (5.0-9.0); Specific Gravity - Urine <= 1.005 (1.005-1.025)
[2025-03-29 20:10] VITALS: BP 166/71; PULSE 94; RESP 20; TEMP 36.2; O2SAT 95
[2025-03-29 20:36] LABS: Glucose, Whole Blood 200 mg/dL (60-115)
[2025-03-29] MEDS: 0.9 % Sodium Chloride Flush 3 ML SYRINGE IVFLUSH (20:39)
[2025-03-30] VITALS: BP 145/75; PULSE 94; RESP 16; TEMP 36.6; O2SAT 96
[2025-03-30 02:53] VITALS: BP 162/78; PULSE 93; RESP 16; TEMP 36.5; O2SAT 92
[2025-03-30 04:43] VITALS: BP 182/81
[2025-03-30] MEDS: Furosemide 40 MG/4 ML VIAL IVPUSH (04:43)
[2025-03-30 07:09] LABS: Hematocrit 27.1 % (42.0-52.0); Hemoglobin 8.9 g/dl (14.0-18.0); Mean Corpuscular HGB Conc 32.8 g/dl (31.0-36.0); Mean Corpuscular Hemoglobin 28.7 pg (27.0-33.0); Mean Corpuscular Volume 87.4 fL (80.0-98.0); NRBC Abs Auto 0.000 X10*3/uL (0.0-0.012); NRBC Pct Auto 0.0 /100WBC (0.0-0.2); Platelet Count 211 X10*3/uL (160-400); Red Blood Count 3.10 X10*6/uL (4.60-5.80); White Blood Count 6.3 X10*3/uL (4.8-10.8)
[2025-03-30 07:14] VITALS: BP 149/81; PULSE 110; RESP 18; TEMP 36; O2SAT 94
[2025-03-30 07:19] LABS: Glucose, Whole Blood 162 mg/dL (60-115)
[2025-03-30 07:28] LABS: Alanine Aminotransferase < 6 U/L (0-40); Albumin Level 3.3 g/dL (3.5-5.0); Alkaline Phosphatase 156 U/L (39-117); Anion Gap 12 (12-20); Aspartate Amino Transferase 12 U/L (5-37); Blood Urea Nitrogen 18 mg/dL (9-16); Calcium 8.8 mg/dL (8.4-10.2); Carbon Dioxide 26 mmol/L (22-29); Chloride 106 mmol/L (96-108); Creatinine Clr Calc Pharmacy 43.5; Estimated Glomerular Filt Rate 46; Potassium 3.5 mmol/L (3.3-5.1); Sodium 140 mmol/L (135-145); Total Protein 5.5 g/dL (6.5-8.0)
[2025-03-30] MEDS: 0.9 % Sodium Chloride Flush 3 ML SYRINGE IVFLUSH (08:26)
[2025-03-30] MEDS: Triamcinolone Acet 0.1 % Cream 15 GM TUBE 1 APPL TOPICAL (08:26)
--- NOTE | 2025-03-30 09:58 | P.DS_ITS ---
DS: Providers Provider Date of Service: 03/30/25 Date of admission: 03/29/25 16:33 Date of discharge: 03/30/25 Primary care physician: Latoya Lopez MD DS: Diagnosis Discharge Diagnosis (1) Cardiomyopathy: Status: Acute DS: Summary Hospital Course Hospital Course: from initial hpi: 79-year-old male with a history of atrial fibrillation on on apixaban, HTN, HFrEF (LVEF 40-45%), HLD , chronic kidney disease who was referred to the em ergency department from urgent care for evaluation of bilateral lower extremity erythema, increased lower extremity swelling with weeping edema. He has chronic LE erythema but over the last week. He denied pain, nausea, vomting , diarrhea. He did say that he gained 2 lbs over the last 5 days and has had decreased urine output. He was admitted to [facility] from 03/13 to 03/20 and treated for weakness and A KI from diuresis. He also had a prolonged hospital stay of almost 40 days in [place] where he required intubation. In the ER, patient was noted to have elevated BNP of 2388, creatinine 1.43. He received a dose of Zosyn, vancomycin, IV Lasix in the ER. He will be admitted for further management and treatment of acute CHF with chronic venous stasis to lower extremities hospital course: Patient was admitted for acute on chronic systolic CHF. Given IV Lasix and will transitioned to 20 mg p.o. daily for maintenance. This is likely in the setting of recently stopping diuretics due to acute kidney injury from over-diuresis weights and creatinine should be monitored closely as outpatient. For chronic venous stasis, no evidence of cellulitis. We will be discharged with triamcinolone and Unna boot wraps. For persistent AFib was continued on Eliquis. For diabetes was continued on insulin sliding scale. For CKD 3A remained at baseline. For BPH was continued on tamsulosin. For hyperlipidemia continued on statin. Patient is feeling better and will be discharged home Time Attestation Discharge Coordination Time (in mins): 35 Quality: Safe Use of Opioids Does Pt have an Active Cancer Diagnosis on the Problem List?: No Quality: Stroke Does the patient have a stroke diagnosis?: No Physical Exam Exam: Exam: General: AO X 3, no acute distress, frail Resp: CTA bilateral, no accessory muscles used CVS: S1,S2,RRR GI: soft, non tender, non distended Neuro: motor grossly intact, alert Psych: appropriate affect, appropriate insight bilateral lower extremity mild edema with stasis skin changes Vital Signs: Vital Signs: Last Vital Signs Temp 96.8 F 03/30/25 07:14 Pulse 110 H 03/30/25 07:14 Resp 18 03/30/25 07:14 BP 149/81 H 03/30/25 07:14 Pulse Ox 94 03/30/25 07:14 O2 Del Method Room Air 03/30/25 07:14 BMI result Body Mass Index 26.4 DS: Data Data Completed and Pending Labs on day of discharge: Laboratory Results - last 24 hr 03/29/25 03/29/25 03/29/25 12:03 13:19 18:44 WBC 7.5 RBC 3.33 L Hgb 9.5 L Hct 29.3 L MCV 88.0 MCH 28.5 MCHC 32.4 RDW 21.4 H Plt Count 199 D MPV 10.3 Immature Gran % (Auto) 0.8 H Neut % (Auto) 73.5 H Lymph % (Auto) 13.5 L [place] % (Auto) 8.9 Eos % (Auto) 2.5 Baso % (Auto) 0.8 Lymph # (Auto) 1.0 L [place] # (Auto) 0.7 Eos # (Auto) 0.2 Baso # (Auto) 0.1 Abs Immat Gran (auto) 0.06 H Absolute Neuts (auto) 5.5 Absolute Nucleated RBC 0.000 Nucleated RBC % (auto) 0.0 Sodium 139 Potassium 3.8 Chloride 105 Carbon Dioxide 26 Anion Gap 12 BUN 17 H Creatinine 1.43 H Estim Creat Clear Calc 44.4 Estimated GFR 47 POC Glucose Random Glucose 147 H Lactic Acid 1.1 Calcium 9.0 Total Bilirubin 0.7 AST 12 ALT 8 Alkaline Phosphatase 177 H NT-Pro-B Natriuret Pep 2388.4 H Total Protein 6.2 L Albumin 3.6 Urine Color Yellow Urine Appearance Clear Urine pH 6.5 Ur Specific [place] <= 1.005 Urine Protein Negative Urine Glucose (UA) Negative Urine Ketones Negative Urine Blood Negative Urine Nitrite Negative Ur Leukocyte Esterase Negative 03/29/25 03/29/25 03/30/25 18:50 20:32 06:33 WBC 6.3 RBC 3.10 L Hgb 8.9 L Hct 27.1 L MCV 87.4 MCH 28.7 MCHC 32.8 RDW 21.2 H Plt Count 211 MPV 11.3 Immature Gran % (Auto) Neut % (Auto) Lymph % (Auto) [place] % (Auto) Eos % (Auto) Baso % (Auto) Lymph # (Auto) [place] # (Auto) Eos # (Auto) Baso # (Auto) Abs Immat Gran (auto) Absolute Neuts (auto) Absolute Nucleated RBC 0.000 Nucleated RBC % (auto) 0.0 Sodium 140 Potassium 3.5 Chloride 106 Carbon Dioxide 26 Anion Gap 12 BUN 18 H Creatinine 1.46 H Estim Creat Clear Calc 43.5 Estimated GFR 46 POC Glucose 164 H 200 H Random Glucose 162 H Lactic Acid Calcium 8.8 Total Bilirubin 0.6 AST 12 ALT < 6 Alkaline Phosphatase 156 H NT-Pro-B Natriuret Pep Total Protein 5.5 L Albumin 3.3 L Urine Color Urine Appearance Urine pH Ur Specific [place] Urine Protein Urine Glucose (UA) Urine Ketones Urine Blood Urine Nitrite Ur Leukocyte Esterase 03/30/25 07:10 WBC RBC Hgb Hct MCV MCH MCHC RDW Plt Count MPV Immature Gran % (Auto) Neut % (Auto) Lymph % (Auto) [place] % (Auto) Eos % (Auto) Baso % (Auto) Lymph # (Auto) [place] # (Auto) Eos # (Auto) Baso # (Auto) Abs Immat Gran (auto) Absolute Neuts (auto) Absolute Nucleated RBC Nucleated RBC % (auto) Sodium Potassium Chloride Carbon Dioxide Anion Gap BUN Creatinine Estim Creat Clear Calc Estimated GFR POC Glucose 162 H Random Glucose Lactic Acid Calcium Total Bilirubin AST ALT Alkaline Phosphatase NT-Pro-B Natriuret Pep Total Protein Albumin Urine Color Urine Appearance Urine pH Ur Specific [place] Urine Protein Urine Glucose (UA) Urine Ketones Urine Blood Urine Nitrite Ur Leukocyte Esterase Discharge Plan Discharge Anticipated Discharge Date/Time: 03/30/25 09:55 Patient Disposition: Home Health Service Discharge Diagnosis: stasis dermatitis Referrals: Latoya Lopez MD [Primary Care Provider, Internal Medicine] - 1 Week Discharge Medications: New triamcinolone acetonide 0.1 % Cream 1 appl topical BID Qty: 80 0RF Protocol: Apply to: Apply to: legs furosemide [Lasix] 20 mg tablet 20 mg PO QAM Qty: 90 0RF (DME) Unna Boot 12 %- 4 X 10 yard bandage See Rx Instructions .Route Qty: 1 0RF Rx Instructions: As directed Continued (DME) OneTouch Verio test strips Strip See Rx Instructions .ROUTE .MEDSUPPLY Qty: 100 1RF Rx Instructions: use 1 strip once a day to test blood sugar (DME) blood-glucose meter [OneTouch Verio Flex meter] [facility] See Rx Instructions .ROUTE .MEDSUPPLY Qty: 1 0RF Rx Instructions: As directed (DME) lancets [Accu-Chek Softclix Lancets] [facility] See Rx Instructions .ROUTE .MEDSUPPLY Qty: 100 3RF Rx Instructions: use 1 lancet daily to test blood sugar tamsulosin 0.4 mg capsule 0.4 mg PO DAILY 90 Days Qty: 90 3RF acetaminophen 500 mg Tablet 500 mg PO Q6H PRN (Reason: Fever Or Pain) Eliquis 2.5 mg Tablet 2.5 mg PO BID 30 Days Qty: 60 3RF Rx Instructions: Needs to follow-up with PCP/Nephrology and increase the dose once VERENA resolves sennosides [Senna Lax] 8.6 mg Tablet 8.6 mg PO DAILY PRN (Reason: Constipation) Qty: 14 3RF aspirin 81 mg tablet 81 mg PO DAILY Discharge Orders: Discharge Order (Routine); Ordered 03/30/25 Ordered By: Maxime Patel Diet: Advance to usual diet Activity on Discharge: As tolerated Stand Alone Forms: Patient Portal Discharge page Print Language: Turkish Care Plan Goals: recovery Health Concerns: stasis dermatitis, chf Plan of Treatment: restart lasix 20mg daily for maintenance, use unna boot wraps with triamcinlone cream Assessment: see above
--- NOTE | 2025-03-30 10:28 | MHC.CM.PN ---
Addendum entered by Laxmi Horvath 03/30/25 10:30: PT IS MEDICALLY CLEARED FOR DISCHARGE HOME WITH RESUMPTION OF PREVIOUS [facility] SERVICES, HIS DAUGHTER WILL TRANSPORT HIM HOME TODAY. Original Note: IMM GIVEN 03/30. PT LIVES ALONE AT HOME, HE IS ACTIVE WITH [email or web address], AND USES A CANE. PTS DAUGHTER WILL TRANSPORT HIM HOME AT DISCHARGE. HCP ON FILE AND VERIFIED. PCP: DR. RAMA GARCIA
== END 2025-03-30 11:45 | disposition home health service (06) | DRG 291 ==
LOC: HO.ED 14:51 → HO.EDOVER 16:42 → HO.IMC 19:23
PROVIDERS: Admitting Provider Nurse Practitioner Acute Care; Emergency Provider Emergency Medicine Emergency Medical Services; PCP Internal Medicine; Visit Provider Internal Medicine
DX: I13.0 Hypertensive heart and chronic kidney disease with heart failure and stage 1 through stage 4 chronic kidney disease, or unspecified chronic kidney disease (principal); I50.23 Acute on chronic systolic (congestive) heart failure; I48.19 Other persistent atrial fibrillation; D63.1 Anemia in chronic kidney disease; N18.31 Chronic kidney disease, stage 3a; E11.22 Type 2 diabetes mellitus with diabetic chronic kidney disease; I87.8 Other specified disorders of veins; N40.0 Benign prostatic hyperplasia without lower urinary tract symptoms; E78.5 Hyperlipidemia, unspecified; Z79.02 Long term (current) use of antithrombotics/antiplatelets; Z79.82 Long term (current) use of aspirin; Z79.899 Other long term (current) drug therapy
CPT/HCPCS: 36415; 71045; 80053; 81003; 82947; 83605; 83880; 85025; 85027; 87040; 99222; 99284; J1938; J2543; J3374

== ENCOUNTER → 2025-03-29 16:11 | Outpatient (BNV) | payer MEDICARE, SELFPAY | PROVIDERS: Admitting Provider Nurse Practitioner Acute Care; Emergency Provider Emergency Medicine Emergency Medical Services; PCP Internal Medicine; Visit Provider Radiology Diagnostic Radiology | DX: J90 Pleural effusion, not elsewhere classified (principal); R91.8 Other nonspecific abnormal finding of lung field | CPT/HCPCS: 71045 ==

== ENCOUNTER → 2025-03-29 16:33 | Outpatient (BNV) | payer MEDICARE, SELFPAY | PROVIDERS: Admitting Provider Nurse Practitioner Acute Care; Emergency Provider Emergency Medicine Emergency Medical Services; PCP Internal Medicine; Visit Provider Nurse Practitioner Acute Care | DX: I42.9 Cardiomyopathy, unspecified (principal) | CPT/HCPCS: 99223; 99239 ==

== ENCOUNTER 2025-03-31 13:52 | Outpatient (AMB) | payer MEDICARE, SELFPAY ==
[2025-03-31 13:58] VITALS: BP 112/60; PULSE 105; O2SAT 97; BMI 30.7
--- NOTE | 2025-03-31 13:58 | HO.NEPHOV ---
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: No Accompanied by: Daughter Allergies cephalexin (Keflex) Allergy (Intermediate, Verified 03/31/25 14:01) hives levofloxacin Allergy (Intermediate, Verified 03/31/25 14:01) Hives cetirizine (From [facility]) Adverse Reaction (Intermediate, Verified 03/31/25 14:01) Fatigue Medication List - Last Reconciled 03/31/25 by Edmond Mahajan MD acetaminophen 500 mg PO Q6H PRN apixaban (Eliquis) 2.5 mg PO BID 30 days aspirin 81 mg PO DAILY blood sugar diagnostic (GreenGarTouch Verio test strips) use 1 strip once a day to test blood sugar blood-glucose meter (GreenGarTouch Verio Flex Meter) As directed furosemide (Lasix) 20 mg PO QAM lancets (Accu-Chek Softclix Lancets) use 1 lancet daily to test blood sugar sennosides (Senna Lax) 8.6 mg PO DAILY PRN tamsulosin 0.4 mg PO DAILY 90 days triamcinolone acetonide 0.1% 1 appl See Protocol topical BID zinc oxide-gauze bandage 12 %- 4 X 10 yard (Unna Boot) As directed HPI Comments Details: - The patient is an 79-year-old male seen for follow-up regarding acute kidney injury. In August 2024 serum creatinine was 0.95. He was hospitalized for about a month in [place] and he was diagnosed with heart failure and treated with the diuretics. He was hospitalized at [facility] on 03/13/2025 with a creatinine of 3.08. Diuretics were held use cautiously hydrated Serum creatinine dropped down to 1.4 mg/dL. Few days ago he was in the emergency room with leg swelling and he was found to have cellulitis was treated with antibiotics. And he was discharged with Lasix 20 mg p.o. daily. He is yet to start the Lasix. 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 Social History Household Members: None Housing: House Are you a primary career agent to a significant other at home: No Do you presently have visiting nurse or other home services: Yes Patient Tobacco Use Status: Never used Tobacco e-Cigarette/Vaping Use: Never Used Second Hand Smoke Exposure: Yes Advance Directives Date on File: 12/28/23 service: No Current occupational status: retired Cognitive needs: No Hearing needs: No Vision needs: Yes Physical Exam Vital Signs: Last Vital Signs Pulse 105 H 03/31/25 13:58 BP 112/60 03/31/25 13:58 Pulse Ox 97 03/31/25 13:58 BMI result Body Mass Index 30.7 Comfortable Neck supple no JVD. Lungs entry equal no rales. Scattered rhonchi Heart S1-S2 heard no gallop or rub. Abdomen soft nontender. Neuro alert awake oriented. No asterixis. Extremities 2 + edema. Both legs are wrapped Results Reviewed Results Reviewed: March 2025 Renal ultrasonogram Right kidney: The right kidney measures 10.9 x 5.9 x 5.4 cm. Renal parenchymal echotexture and thickness are normal. There are no masses. There is no hydronephrosis or renal calculi. Left Kidney: The left kidney measures 11.2 x 5.8 x 5.3 cm. Renal parenchymal echotexture and thickness are normal. There are no masses. There is no hydronephrosis or renal calculi. Nephrology Results: Hgb, (14.0-18.0) 8.9 g/dl L 03/30/25 WBC, (4.8-10.8) 6.3 X10*3/uL 03/30/25 Plt Count, (160-400) 211 X10*3/uL 03/30/25 Sodium, (135-145) 140 mmol/L 03/30/25 Potassium, (3.3-5.1) 3.5 mmol/L 03/30/25 Chloride, (96-108) 106 mmol/L 03/30/25 Carbon Dioxide, (22-29) 26 mmol/L 03/30/25 BUN, (9-16) 18 mg/dL H 03/30/25 Creatinine, (0.5-1.4) 1.46 mg/dL H 03/30/25 Calcium, (8.4-10.2) 8.8 mg/dL 03/30/25 Urine Protein, (Neg-Trace) Negative mg/dL 03/29/25 Renal US 03/14/25 Assessment & Plan Assessment & Plan (1) CKD (chronic kidney disease): Code(s): N18.9 - Chronic kidney disease, unspecified Category: Medical Plan Alireza had acute kidney injury superimposed on chronic kidney disease. Acute kidney injury was due to hypoperfusion in the setting of cardiorenal syndrome. After optimizing fluid status acute kidney injury resolved and serum creatinine decreased to 1.37. Continue overt nephrotoxic agents including NSAIDs. Avoid hypotension. She will watch renal function closely while he is on multiple medications. He has underlying chronic kidney disease . I believe the baseline creatinine is between 1.0 and 1.3 mg/dL. Further clinical course we will determine this History of cardiomyopathy. Currently appears fluid overloaded. Agree with starting him back on Lasix 20 mg a day. Depending on the response we might have to increase the dose to 40 mg a day. Encouraged him to stay on low-sodium diet He is due to see his precision market insights in the next few days. Anemia Multifactorial Awaiting to see gastroenterology. Orders: Orders Basic Metabolic Panel 3 Weeks N17.9 - Acute kidney failure, unspecified Complete Blood Count no Diff 3 Weeks N17.9 - Acute kidney failure, unspecified Coding Level of Care Code Est Pt Level 4 (24842) Diagnoses CKD (chronic kidney disease) N18.9
== END 2025-03-31 14:20 | disposition home or self-care (01) ==
LOC: HO.HKA 13:53
PROVIDERS: PCP Internal Medicine; Visit Provider Internal Medicine Hypertension Specialist
DX: N18.9 Chronic kidney disease, unspecified (principal)
CPT/HCPCS: 99214

== ENCOUNTER → 2025-03-31 13:52 | Outpatient (BNVA) | payer MEDICARE, SELFPAY | PROVIDERS: PCP Internal Medicine; Visit Provider Internal Medicine Hypertension Specialist | DX: I12.9 Hypertensive chronic kidney disease with stage 1 through stage 4 chronic kidney disease, or unspecified chronic kidney disease (principal); E11.22 Type 2 diabetes mellitus with diabetic chronic kidney disease; N18.9 Chronic kidney disease, unspecified; Z86.79 Personal history of other diseases of the circulatory system | CPT/HCPCS: 99212 ==

== ENCOUNTER 2025-04-07 15:50 | Outpatient (AMB) | payer MEDICARE, SELFPAY ==
--- OUTSIDE RECORDS SUMMARY | 2025-03-20 10:45 | XMS_ITS ---
Author Organization [facility] Address [address] [place] [phone] Care Team Providers Care White Shoe Examiner Name Role Phone John PENNY, Latoya Negrete Primary Care Provider Un available Francine Ibrahim Ciro [phone] Encounters Encounter Location Date Provider Diagnosis [address] [address] 03/20/2025 Francine Patrice Plan Of Treatment Next Appt Details Provider Name:Francine Ibrahim , 2025 01:30:00 PM, [address] [place] [address], [phone], Progress Notes * Alireza ROWAN MDOB: 4 (79 yo M)Acc No.[id number]:03/20/2025 Progress Note Patient: Alireza DENNISON Provider: Wen Ibrahim DPM :1945 A ge:79 Y S ex:Male Date:03/20/2025 Address:[address] [place] [phone] Pcp:Amol Yepez Subjective: * Chief Complaints: * [...] 03/20/2025 Generated for Floyd robertson/Marquis/Lorenzo on: 1 06:09 PM EDT
--- NOTE | 2025-04-07 15:58 | MHC.PC.OV ---
Vital Signs 04/07/25 15:59 Height 5 ft 11 in Weight 227 lb BMI 31.7 BP 140/54 H Blood Pressure Location Rt brachial Position Sitting Respiration 16 Pulse 96 Pulse Source Pulse Oximeter Temp 97.8 F Temp Source Oral Pulse Oximetry (%) 96 Oxygen Delivery Method Room Air Intake Visit Reasons: TCM Intake Note: Pt is here today for a TCM f/u Allergies cephalexin (Keflex) Allergy (Intermediate, Verified 04/07/25 15:59) hives levofloxacin Allergy (Intermediate, Verified 04/07/25 15:59) Hives cetirizine (From Zyrtec) Adverse Reaction (Intermediate, Verified 04/07/25 15:59) Fatigue Tobacco use date assessed: 04/07/25 Fall risk assessment: 1 Fall in past year Last assessed Fall Risk: 04/07/25 Dental Screening Dental Screen Date: 04/07/25 Did you have a dental visit in the last 12 months?: Yes Did you have a dental problem in the last 6 months where you did not have access to dental care?: No Was dental information given to patient?: Patient has dentist HPI TCM HPI Details 79-year-old male with a history of atrial fibrillation on on apixaban, HTN, HFrEF (LVEF 40-45%), HLD , chronic kidney disease recently admitted at [facility] for increasing swelling and moisture accumulation both lower extremities over the last week prior to admission. He denied pain, nausea, vomting , diarrhea. He did say that he gained 2 lbs over the last 5 days and has had decreased urine output. He was admitted to [facility] from 03/13 to 03/20 and treated for weakness and VERENA from diuresis. He also had a prolonged hospital stay of almost 40 days in [place] where he required intubation. In the ER, patient was noted to have elevated BNP of 2388, creatinine 1.43. He received a dose of Zosyn, vancomycin, IV Lasix in the ER. He was admitted for further management and treatment of acute CHF with chronic venous stasis to lower extremities hospital course: Patient was admitted for acute on chronic systolic CHF. Given IV Lasix and will transitioned to 20 mg p.o. daily for maintenance. He has chronic venous stasis, no evidence of cellulitis. We was discharged home with VNA services, to do triamcinolone and Unna boot wraps. Continued on apixaban 2.5 mg twice a day for his persistent atrial fibrillation. He was placed on a insulin sliding scale during his hospital stay but was not placed on any diabetic medication on discharge. Patient states that he has been off his glipizide 2.5 mg taken daily in the morning, metformin 500 mg twice a day and Ozempic 2.5 mg Q weekly since day of his discharge he has been checking his blood pressure at home and it is starting to creep up now averaging 189 mg/dL. He was recently seen by Dr. Mahajan for his chronic kidney disease and was advised to avoid all nephrotoxic agent including NSAIDs, avoid hypoperfusion, continued on Lasix 20 mg daily and may need to increase it to 40 mg depending on his symptoms of, and continue with a low-salt diet For BPH was continued on tamsulosin. For hyperlipidemia continued on statin. Patient states that he is feeling much better, breathing easier with no cough, no shortness of breath or chest pain reported. Swelling in both lower extremities is slowly resolving. 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 Social History Household Members: None Housing: House Are you a primary urgent care physician assistant to a significant other at home: No Do you presently have visiting nurse or other home services: Yes Patient Tobacco Use Status: Never used Tobacco e-Cigarette/Vaping Use: Never Used Second Hand Smoke Exposure: Yes Advance Directives Date on File: 12/28/23 service: No Current occupational status: retired Cognitive needs: No Hearing needs: No Vision needs: Yes Questionnaire Thrive Questionnaire Date Thrive assessed: 08/22/24 I am a: Patient What is your living situation today?: I have a steady place to live Within the past 12 months, did the food you bought not last and you didn't have the money to get more?: Never true Within the past 12 months, did you worry whether your food would run out before you got money to buy more?: Never true Do you have trouble paying for medicines?: No Do you have trouble getting transportation to medical appointments?: No Do you have trouble paying your heating and electricity bill?: No Do you have trouble taking care of your child, family member or friend?: No Do you have trouble with day-to-day activities such as bathing, preparing meals, shopping, managing finances, etc.?: No Are you currently unemployed and looking for a job?: No Are you interested in more education?: No Please select the resources that you would like help with: None Currently or been in a relationship where the following occur: No concerns reported THRIVE Score: 0 MARY-7 AMB Questionnaire MARY-7 Date MARY - 7 assessed: 08/22/24 Source: Developed by Drs. Isma Davidson, Radha Sumner, Bobby Reyes and colleagues, with an educational gina from [employer]. Review of Systems Const Details: Still with easy fatigability and generalized weakness, now able to walk on his own but slow gait, afebrile Eyes Details: Goes to [facility] for his diabetes retinopathy screening and eye exam ENT Reports no additional complaints Card Denies chest pain, Denies syncope, Denies rapid heart rate, Denies lightheadedness, Denies palpitations and Denies dyspnea Resp Denies cough and Denies dyspnea GI Denies abdominal pain, Denies hematochezia, Denies change in bowel habits and Denies heartburn Musc Denies muscle cramps, Reports muscle weakness, Denies numbness, Denies radiating pain into limb, Reports stiffness and Denies tingling Skin/Breast Details: Currently being seen by [facility] Neuro Denies syncope, Denies numbness, Denies Sensory deficit (Neuro) and Denies tingling Psych Reports no additional complaints Endo Denies palpitations Ulysses/Lymph Reports no additional complaints Aller/Immun Reports no additional complaints Physical exam (Primary Care) Vital Signs: Last Vital Signs Temp 97.8 F 04/07/25 15:59 Pulse 96 04/07/25 15:59 Resp 16 04/07/25 15:59 BP 140/54 H 04/07/25 15:59 Pulse Ox 96 04/07/25 15:59 Oxygen Delivery Method Room Air 04/07/25 15:59 BMI result Body Mass Index 31.7 Tobacco/Smoking Status: Tobacco use Status Tobacco use date assessed 04/07/25 04/07/25 16:04 Patient Tobacco Use Status Never used Tobacco 04/07/25 16:04 e-Cigarette/Vaping Use Never Used 04/07/25 16:04 Thrive Assessment: Date of Thrive Assessment Date Thrive assessed 08/22/24 04/07/25 16:04 Currently or been in a relationship where the following occur: No concerns reported Const General: comfortable and no acute distress Orientation/consciousness: patient oriented x3 HENMT Face and sinus: Yes normal facial exam Eyes General: appearance normal, both eyes and all related structures Neck Neck: Yes normal visual inspection and Yes full ROM Resp Effort & Inspection: normal respiratory effort and able to speak in complete sentences Cardio Rhythm: abnormal rhythm irregularly irregular GI Palpation (GI): Soft to palpation, nontender, no guarding and no masses Auscultation: normal bowel sounds Skin Other: Shiny mild erythema on distal aspect of both lower extremities, with moist skin noted in left lower extremity, no calf tenderness Neuro General: patient oriented x3 Cognition (Neuro): normal cognition Motor exam (neuro): 5/5 motor strength present throughout Sensory Exam: No Sensory deficit (Neuro) Extrem General: Yes normal to inspection Psych Appearance: grossly normal and well kempt Mental Status: mental status grossly normal Speech and movement: Normal speech and movement present Affect: normal affect Coding Level of Care Code TCM High MDM <= 14 days Diagnoses History of congestive heart failure Z86.79 Stasis dermatitis of both legs I87.2 Persistent atrial fibrillation I48.19 Type 2 diabetes mellitus without complication, with no history of insulin use E11.9 CKD (chronic kidney disease) N18.9 Assessment & Plan Assessment & Plan (1) History of congestive heart failure: Code(s): Z86.79 - Personal history of other diseases of the circulatory system Category: Medical Plan: Monitor weight. Currently on furosemide 20 mg daily in a.m.. If any weight gain of 5 lb, will re-evaluate dose may need to increase it to 40 mg daily. Has an upcoming appointment with Cardiology 04/10/2025 (2) Stasis dermatitis of both legs: Code(s): I87.2 - Venous insufficiency (chronic) (peripheral) Category: Medical Plan: Continue application of zinc oxide goes bandage to lower extremities bilateral, elevate legs as much as possible, continue on low-salt done. Continue on furosemide 20 mg daily. (3) Persistent atrial fibrillation: Code(s): I48.19 - Other persistent atrial fibrillation Category: Medical Plan: Continue apixaban 2.5 mg twice a day (4) Type 2 diabetes mellitus without complication, with no history of insulin use: Code(s): E11.9 - Type 2 diabetes mellitus without complications Category: Medical Plan: Patient has been off glipizide 2.5 mg daily, Ozempic 2.5 mg given once a week and off metformin. His glucose levels has started increasing again now averaging 180s. Will start back on Ozempic 2.5 mg given subcutaneously once a week. Continue with adherence to healthy eating habits see him back for follow-up in June 2025 after fasting labs done (5) CKD (chronic kidney disease): Code(s): N18.9 - Chronic kidney disease, unspecified Category: Medical Plan: Continue avoidance of nephrotoxic agents which includes NSAIDs, avoid hypotension to avoid hypoperfusion of kidneys. Continue to monitor while on Lasix 20 mg daily to avoid over-diuresis, continue at a low-salt diet.
[2025-04-07 15:59] VITALS: BP 140/54; PULSE 96; RESP 16; TEMP 36.6; O2SAT 96; BMI 31.7
--- OUTSIDE RECORDS SUMMARY | 2025-04-07 18:10 | XMS_ITS | Patient Health Record ---
Author Organization [facility] Address [address] [place] [address] Care Team Providers Care Manager Program Management Name Role Phone John PENNY, Latoya Negrete Primary Care Provider Un available Black, Francine Unavailable [phone] Allergies Allergen (clinical drug ingredient) Drug/Non Drug [...] No Points 0 Interpretation Negative Section Notes: A1C 09/03/15 Result 5.8 eye exam 05/2015 flu shot yes 05/2015 pneumonia shot 05/2015 A1C 09/03/15 Result 5.8 eye exam 05/2015 flu shot yes 05/2015 pneumonia shot 05/2015 eye exam 05/2015 flu shot yes 05/2015 Problems Problem Type SNOMED Code ICD Code Onset Dates Problem Status W/U Status Risk Notes Problem Polyneuropathy due to type 2 diabetes mellitus (940421707) Type 2 diabetes mellitus with diabetic polyneuropathy (E11.42) Active confirmed Vital Signs Blood pressure diastolic 76 mm Hg 01/09/2025 Height 5 ft 10 in in 01/09/2025 Blood pressure systolic 120 mm Hg 01/09/2025 Weight 228 lbs 01/09/2025 BMI 32.71 kg/m2 01/09/2025 Procedures Procedure Date Ordered Date Performed Result Body Sit e 02616-KNXZPMK NAIL, 6 OR MORE 06/03/2024 N/A 47919-RNDV SKIN LESIONS, OVER 4 06/03/2024 N/A 57262-YXOEYIE NAIL, 6 OR MORE 09/09/2024 N/A 35994-Tltclvkf Plate 09/09/2024 N/A 53775-DDTY SKIN LESIONS, OVER 4 09/09/2024 N/A 77484-Obyxisho Plate 10/09/2024 N/A 65896-HBMNIPB NAIL, 6 OR MORE 12/16/2024 N/A 42584-Vnddfkeq Plate 12/16/2024 N/A 84947-YIMN SKIN LESIONS, OVER 4 12/16/2024 N/A 60403-Rcvdbrit Plate 01/09/2025 N/A 49118-Zglotcgq Plate Each Additional 01/09/2025 N/A Encounters Encounter Location Date Provider Diagnosis [address] [address] 06/03/2024 Francine Black Type 2 diabetes mellitus with diabetic polyneuropathy E11.42 ; Tinea unguium B35.1 ; Ingrown nail L60.0 and Edema, lower extremity R60.[address] [address] 09/09/2024 Francine Black Type 2 diabetes mellitus with diabetic polyneuropathy E11.42 ; Other hammer toe(s) (acquired), right foot M20.41 ; Tinea unguium B35.1 ; Ingrown nail L60.0 ; Edema, lower extremity R60.0 and Other hammer toe(s) (acquired), left foot M20.[address] [address] 10/09/2024 Francine Black Ingrown nail L60.0 a nd Type 2 diabetes mellitus with diabetic polyneuropathy E11.[address] [address] 12/16/2024 Francine Black Type 2 diabetes mellitus with diabetic polyneuropathy E11.42 ; Edema, lower extremity R60.0 ; Ingrown nail L60.0 and Tinea unguium B35.1 [facility] [address] [address] 01/09/2025 Francine Black Ingrown nail L60.0 a nd Type 2 diabetes mellitus with diabetic polyneuropathy E11.[facility] [address] 10/08/2024 Francine Black [facility] [address] 01/08/2025 Francine Black [facility] [address] [address] 03/20/2025 Francine Black Assessments Encounter Date Diagnosis [...] mellitus with diabetic polyneuropathy (ICD-10 - E11.42) 01/09/2025 Ingrown nail (ICD-10 - L60.0) 12/16/2024 Edema, lower extremity (ICD-10 - R60.0) 01/09/2025 Type 2 diabetes mellitus with diabetic polyneuropathy (ICD-10 - E11.42) 12/16/2024 Ingrown nail (ICD-10 - L60.0) 09/09/2024 Tinea unguium (ICD-10 - B35.1) 06/03/2024 Tinea unguium (ICD-10 - B35.1) 06/03/2024 Ingrown nail (ICD-10 - L60.0) 09/09/2024 Ingrown nail (ICD-10 - L60.0) 12/16/2024 Tinea unguium (ICD-10 - B35.1) 09/09/2024 Edema, lower extremity (ICD-10 - R60.0) 06/03/2024 Edema, lower extremity (ICD-10 - R60.0) 09/09/2024 Other hammer toe(s) (acquired), left foot (ICD-10 - M20.42) Plan Of Treatment Pending Test Test Name Order Date Microalbumin, 24 hr Urine 06/23/2015 64554-EZXWDRC NAIL, 6 OR MORE 12/16/2024 65948-HCQRGUR NAIL, 6 OR MORE 09/09/2024 30780-ARUPMJS NAIL, 6 OR MORE 08/10/2023 54340-LCAFPWI NAIL, 6 OR MORE 11/13/2023 37499-ADMLTFX NAIL, 6 OR MORE 02/26/2024 07141-NVTHYJW NAIL, 6 OR MORE 06/03/2024 50698-XRYQLBG NAIL, 6 OR MORE 04/25/2022 42731-JYTHKPR NAIL, 6 OR MORE 08/01/2022 52452-HJSCIPQ NAIL, 6 OR MORE 11/03/2022 83865-UVNYXKE NAIL, 6 OR MORE 02/02/2023 64786-PRWQNLZ NAIL, 6 OR MORE 05/11/2023 15186-MZGQUCJ NAIL, 6 OR MORE 08/05/2019 07906-HDAEJWO NAIL, 6 OR MORE 10/28/2019 22671-UYRIETI NAIL, 6 OR MORE 03/26/2020 43534-KMDJNVB NAIL, 6 OR MORE 06/11/2020 23792-WSUUKSJ NAIL, 6 OR MORE 08/20/2020 99727-NFLALAL NAIL, 6 OR MORE 10/22/2020 46745-DYCZCUZ NAIL, 6 OR MORE 12/31/2020 42577-TPMBIVU NAIL, 6 OR MORE 07/15/2021 88473-VDELKLX NAIL, 6 OR MORE 10/04/2021 10476-FCXJQMB NAIL, 6 OR MORE 02/08/2022 19656-ABEWLJF NAIL, 6 OR MORE 05/05/2011 19377-RFNXVZO NAIL, 6 OR MORE 11/03/2011 48468-FKJSVCY NAIL, 6 OR MORE 09/19/2011 41986-RZVURDG NAIL, 6 OR MORE 11/27/2012 84706-CVIBCKL NAIL, 6 OR MORE 09/04/2015 21572-ICHQRUN NAIL, 6 OR MORE 12/02/2015 59019-FJTMVPP NAIL, 6 OR MORE 02/08/2016 20231-GMDHJXH NAIL, 6 OR MORE 04/25/2016 75043-DYCCHHN NAIL, 6 OR MORE 07/11/2016 34654-WTQIZCP NAIL, 6 OR MORE 09/08/2016 58551-IAHUUCJ NAIL, 6 OR MORE 11/17/2016 22762-CVAOABI NAIL, 6 OR MORE 02/02/2017 72580-QNQFISU NAIL, 6 OR MORE 04/11/2017 09700-BYWERFU NAIL, 6 OR MORE 07/05/2017 06924-MRQILPI NAIL, 6 OR MORE 11/20/2017 92360-QQIREAS NAIL, 6 OR MORE 01/29/2018 37561-HFXTLUJ NAIL, 6 OR MORE 06/12/2018 89186-NNSGMRU NAIL, 6 OR MORE 08/27/2018 99487-IETXFZN NAIL, 6 OR MORE 11/05/2018 84119-GUMEYCW NAIL, 6 OR MORE 05/13/2019 25097-POINCKY NAIL, 6 OR MORE 12/23/2019 07316-WHAOBPE NAIL, 6 OR MORE 03/05/2019 50677-DRGCMMX NAIL, 6 OR MORE 09/14/2017 70644-AMIXMIW NAIL, 6 OR MORE 12/05/2011 42631-LFVHKQD NAIL, 6 OR MORE 04/19/2021 44260-ISBHAGT NAIL, 6 OR MORE 01/27/2014 33180-RPQGAGU NAIL, 6 OR MORE 07/29/2013 75743-XRCAIPB NAIL, 1-5 07/28/2014 14404-RLLZFVV NAIL, 1-5 01/26/2015 87426-DZPCQKH NAIL, 1-5 11/27/2014 46539-QQEYFLJ NAIL, 1-5 04/03/2015 73034-OXKBHSG NAIL, 1-5 06/16/2015 23777-NPOVJTF NAIL, 1-5 04/30/2012 67209-Xtnz Destruction, -14 08/01/2022 97570-Vgvu Destruction, -14 11/03/2022 25549-Oefo Destruction, 1-14 04/25/2022 72370-Vqiomkty Plate 02/08/2022 51374-Tdyebquf Plate 11/03/2022 36645-Fqtegpfx Plate 02/02/2023 86184-Iifhsiec Plate 02/26/2024 05010-Jckzhcxm Plate 11/13/2023 89534-Vvjpfasb Plate 10/09/2024 37634-Hbwdaeuv Plate 09/09/2024 13914-Ampgrhjs Plate 12/16/2024 78148-Jxsxmrsk Plate 10/04/2021 65569-Jbxuucax Plate 12/31/2020 76220-Lmzwbegj Plate 10/28/2019 32445-Qpsccade Plate 01/16/2020 36716-Ziehsiry Plate 01/23/2020 32240-Jodpbfok Plate 04/30/2012 86570-Dtztmpas Plate 09/19/2011 54417-Neicnzqz Plate 02/23/2012 44380-Szcpwkdk Plate 11/03/2011 96375-Xzqbaxcv Plate 05/05/2011 79417-Djzgltqc Plate 06/06/2011 14716-Pihignfm Plate 11/27/2012 25821-Kjmkwtko Plate 03/13/2014 80913-Tnbkqzee Plate 04/03/2015 67741-Fgjbsbzg Plate 11/27/2014 29437-Cqzkgojq Plate 05/13/2019 16812-Xaebzerd Plate 08/27/2018 39723-Hhefrjdr Plate 01/29/2018 40799-Jcvktady Plate 06/12/2018 29287-Gxcqmpxl Plate 04/11/2017 80927-Yyvcsien Plate 02/08/2016 11244-Jgrkepgg Plate 11/17/2016 32070-Njiwwial Plate 09/08/2016 38768-Colcbvcr Plate 07/11/2016 86886-Pjxndygt Plate 04/25/2016 38087-Edvbsibv Plate 01/26/2015 15800-Pxgpyzar Plate 09/14/2017 15126-Izaabfbb Plate 03/05/2019 83138-Akmtclgc Plate 07/28/2014 12986-Odgsrdwt Plate 12/05/2011 58558-Svkadytl Plate 03/09/2012 08583-Qtpnrmca Plate 07/29/2013 24254-Ffntioqm Plate 01/27/2014 83316-Ekmdrjxe Plate 01/09/2025 26191-Zsirwjaj Plate 04/19/2021 37318-Jkpndocv Plate Each Additional 33068-Byktmnhy Plate Each Additional 16346-Lezxsrvu Plate Each Additional 01/2012 08050-Kuxyxsss Plate Each Additional 36588-Qiikajjx Plate Each Additional 49957-Ciduogfz Plate Each Additional 09/2011 97975-Zhvsxlvt Plate Each Additional 79023-Oonofsoa Plate Each Additional 07/2020 42173-Noaplutn Plate Each Additional 03/2022 58329-Ffcksdoe Plate Each Additional 04/2025 37312-JPO 01/11/2012 91594- Debride <25 sq cm 01/30/2012 16037- Debride <25 sq cm 02/23/2012 65453- Debride <25 sq cm 04/30/2012 99518- Debride <25 sq cm 04/24/2017 81853- Debride <25 sq cm 01/30/2020 89971- Debride <25 sq cm 02/13/2020 68817- Debride <25 sq cm 02/27/2020 82144- Debride <25 sq cm 01/23/2020 53115- Debride <25 sq cm 03/26/2020 80498- Debride <25 sq cm 04/06/2020 84001-RKRFYSK SKIN/TISSUE 03/09/2012 15721 I&D ABSCESS- SIMPLE,SINGLE 022 66371 I&D ABSCESS- SIMPLE,SINGLE 014 75001-SYIB SKIN LESIONS, OVER 4 06/16/20 15 66531-NAQE SKIN LESIONS, OVER 4 09/04/19 16 26392-FCQR SKIN LESIONS, OVER 4 04/03/20 15 96422-LOHQ SKIN LESIONS, OVER 4 02/08/20 16 62554-GUGX SKIN LESIONS, OVER 4 12/02/19 16 55836-YZEZ SKIN LESIONS, OVER 4 07/05/19 18 87222-UHBO SKIN LESIONS, OVER 4 04/11/20 17 79808-DWSR SKIN LESIONS, OVER 4 02/03/20 17 48501-XIHT SKIN LESIONS, OVER 4 11/18/19 17 02533-QXRD SKIN LESIONS, OVER 4 09/09/19 17 52983-BQSU SKIN LESIONS, OVER 4 04/25/20 16 84835-MVYD SKIN LESIONS, OVER 4 07/11/19 17 28118-FQUL SKIN LESIONS, OVER 4 06/12/20 18 25007-CHVD SKIN LESIONS, OVER 4 01/30/20 41080-GQAT SKIN LESIONS, OVER 4 11/21/19 21268-VEYA SKIN LESIONS, OVER 4 11/06/19 13418-GENY SKIN LESIONS, OVER 4 08/27/19 71974-QIXI SKIN LESIONS, OVER 4 05/13/20 33787-ANWZ SKIN LESIONS, OVER 4 08/05/19 51523-ZCFX SKIN LESIONS, OVER 4 04/25/20 13625-JGGA SKIN LESIONS, OVER 4 10/05/19 34152-LTVS SKIN LESIONS, OVER 4 10/28/19 20180-GQLN SKIN LESIONS, OVER 4 12/23/19 79006-JKCP SKIN LESIONS, OVER 4 12/17/19 43220-OWZG SKIN LESIONS, OVER 4 11/13/19 87293-OEEW SKIN LESIONS, OVER 4 02/26/20 55415-ATLE SKIN LESIONS, OVER 4 09/10/19 35789-PZUR SKIN LESIONS, OVER 4 06/03/20 22793-EEXR SKIN LESIONS, OVER 4 02/03/20 03784-DXUV SKIN LESIONS, OVER 4 11/04/19 17618-INQR SKIN LESIONS, OVER 4 08/10/19 56677-VFVA SKIN LESIONS, OVER 4 05/11/20 35062-XOLK SKIN LESIONS, OVER 4 08/01/19 40748-FONT SKIN LESIONS, OVER 4 09/15/19 67241-GBGN SKIN LESIONS, OVER 4 03/05/20 94900-TQGQ SKIN LESIONS, 2 TO 4 04/19/20 75367-XCUS SKIN LESIONS, 2 TO 4 03/26/20 88054-EOEP SKIN LESIONS, 2 TO 4 06/11/20 86395-XWCB SKIN LESIONS, 2 TO 4 10/23/19 67561-NBNF SKIN LESIONS, 2 TO 4 08/20/19 04230-NYAV SKIN LESIONS, 2 TO 4 02/09/20 92833-EFNG SKIN LESIONS, 2 TO 4 07/15/19 80410-TWOH SKIN LESIONS, 2 TO 4 01/01/20 Z1971-USWOGWGH DYSTROPHIC NAILS ANY # Next Appt Details Provider Name:Francine Warner Patrice , 2025 01:30:00 PM, [address] [place], [address], Insurance Providers Payer Name Payer Address Payer Phone Subscriber Number Group Number Insured Name Patient Relationship to Insured Coverage Start Date Coverage End Date [employer] Medicare Adv-[id number] [address] [address] [place] [address] [id number] NeryAlireza leavitt Self - patient is the insured 6 Medical (General) History Medical History History ICD Code mumps back, hip, knee pain type II diabetes Hay fever Other hammer toe(s) (acquired), right fo ot M20.41 Other hammer toe(s) (acquired), left jasmin t M20.42 Surgical History Surgery Date(Month/Year) left knee arthroscopy 1995 left knee replacement 08/28/2012
== END 2025-04-07 16:39 | disposition home or self-care (01) ==
LOC: HO.HMCC 15:51
PROVIDERS: PCP Internal Medicine; Visit Provider Internal Medicine
DX: I87.2 Venous insufficiency (chronic) (peripheral) (principal); Z86.79 Personal history of other diseases of the circulatory system; I48.19 Other persistent atrial fibrillation; E11.9 Type 2 diabetes mellitus without complications; N18.9 Chronic kidney disease, unspecified

== ENCOUNTER → 2025-04-07 15:50 | Outpatient (BNVA) | payer MEDICARE, SELFPAY | PROVIDERS: PCP Internal Medicine; Visit Provider Internal Medicine | DX: I48.91 Unspecified atrial fibrillation (principal); E11.22 Type 2 diabetes mellitus with diabetic chronic kidney disease; N18.9 Chronic kidney disease, unspecified; E78.5 Hyperlipidemia, unspecified; I87.2 Venous insufficiency (chronic) (peripheral); I48.19 Other persistent atrial fibrillation; Z79.84 Long term (current) use of oral hypoglycemic drugs; Z86.79 Personal history of other diseases of the circulatory system | CPT/HCPCS: 99495 ==

== ENCOUNTER 2025-04-10 09:14 | Outpatient (AMB) | payer MEDICARE, SELFPAY ==
[2025-04-10 09:24] VITALS: BP 140/74; PULSE 79; BMI 31.9
--- NOTE | 2025-04-10 09:24 | MHC.OFFVIS ---
Vital Signs 04/10/25 09:24 Height 5 ft 11 in Weight 228 lb 6.382 oz BMI 31.9 BP 140/74 H Blood Pressure Location Rt brachial Position Sitting Pulse 79 Pulse Source Pulse Oximeter Intake Visit Reasons: ED follow up/ [facility] [place] [employer] Technician Required: No Accompanied by: Daughter Allergies cephalexin (Keflex) Allergy (Intermediate, Verified 04/10/25 09:27) hives levofloxacin Allergy (Intermediate, Verified 04/10/25 09:27) Hives cetirizine (From Zyrtec) Adverse Reaction (Intermediate, Verified 04/10/25 09:27) Fatigue Medication List - Last Reconciled 04/10/25 by Delano Keller MD acetaminophen 500 mg PO Q6H PRN apixaban (Eliquis) 2.5 mg PO BID 30 days aspirin 81 mg PO DAILY blood sugar diagnostic (CrowdCompassTouch Verio test strips) use 1 strip once a day to test blood sugar blood-glucose meter ([employer] Verio Flex Meter) As directed furosemide (Lasix) 20 mg PO QAM lancets (Accu-Chek Softclix Lancets) use 1 lancet daily to test blood sugar sennosides (Senna Lax) 8.6 mg PO DAILY PRN tamsulosin 0.4 mg PO DAILY 90 days triamcinolone acetonide 0.1% 1 appl See Protocol topical BID zinc oxide-gauze bandage 12 %- 4 X 10 yard (Unna Boot) As directed HPI Comments Details: Alireza returns for follow-up regarding atrial fibrillation. It seems that he went to [place] and had a long hospitalization for almost 5-6 weeks' time. Apparently was also intubated and critically ill per family. Notes also reviewed. Essentially, had congestive heart failure, respiratory failure, pulmonary edema pleural effusions. Blood pressure has been markedly high as much into the 200s. After long hospitalization he was eventually discharged home. After this, patient was readmitted to [place]. In that admission, again mentioned to have acute on chronic systolic heart failure and put on diuretics. In that note, mentioned that heart failure exacerbation was due to stopping diuretics from VERENA. Any case, after these hospitalizations, he is slowly recovering. Still looks frail. However, he states his breathing is better and leg swelling is also better. No clear-cut angina. 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 Social History Household Members: None Housing: House Are you a primary medicare sales representative to a significant other at home: No Do you presently have visiting nurse or other home services: Yes Patient Tobacco Use Status: Never used Tobacco e-Cigarette/Vaping Use: Never Used Second Hand Smoke Exposure: Yes Advance Directives Date on File: 12/28/23 service: No Current occupational status: retired Cognitive needs: No Hearing needs: No Vision needs: Yes Review of Systems Const Denies daytime sleepiness, Denies difficulty sleeping, Denies snoring, Denies stops breathing during sleep and Denies weakness Card Denies chest pain, Denies rapid heart rate, Denies irregular heart rhythm, Denies claudication, Denies leg edema, Denies lightheadedness, Denies palpitations, Denies dyspnea, Denies dyspnea on exertion, Denies orthopnea, Denies paroxysmal nocturnal dyspnea and Denies slow heart rate Resp Denies cough, Denies dyspnea, Denies dyspnea on exertion and Denies snoring GI Reports no additional complaints, Denies hematochezia, Denies change in stool character and Denies dyspepsia Musc Denies abnormal gait, Denies muscle weakness and Denies numbness Neuro Denies abnormal gait, Denies numbness and Denies weakness Endo Denies palpitations Physical Exam Vital Signs: Last Vital Signs Pulse 79 04/10/25 09:24 BP 140/74 H 04/10/25 09:24 BMI result Body Mass Index 31.9 Const General: comfortable and no acute distress Orientation/consciousness: patient oriented x3 HEENT Other: Unremarkable Head: Yes normal to inspection Neck Neck: Yes normal visual inspection Chest Chest palpation & inspection: normal inspection of the chest Resp Auscultation: clear to auscultation bilaterally Cardio Palpation: normal PMI Heart sounds: S1 normal heart sound present, S2 normal heart sound present, no gallops, no murmurs and no rubs GI Palpation (GI): Soft to palpation Back/Spine/Pelvis Other: unremarkable Skin General skin exam: no rashes or lesions noted Neuro General: patient oriented x3 Extrem Other: 1+ leg swelling bilateral General: Yes normal to inspection Psych Mental Status: mental status grossly normal Assessment & Plan Assessment & Plan (1) Persistent atrial fibrillation: Code(s): I48.19 - Other persistent atrial fibrillation Category: Medical Plan: Previously on beta-blockers but not in his list anymore. Continue Eliquis. If the creatinine is in the current range, may need to adjust dose back to 5 mg b.i.d.. (2) Cardiomyopathy: Code(s): I42.9 - Cardiomyopathy, unspecified Category: Medical Plan: Echocardiograms with variable LVEF. Most recently, 40-45%. Previously has been 50-55%, 40-45%, 55-60% at different times. Myocardial perfusion imaging study shows no definitive findings of any ischemia or infarction. Possibly related to atrial fibrillation. Also, remote cardiac catheterization 2008. Minimal irregularities only. He probably needs another ischemic workup. We will pursue in due course once he is a bit more stable. Also he just had VERENA. (3) Essential hypertension: Code(s): I10 - Essential (primary) hypertension Category: Medical Plan: Has been on lisinopril in the past but after recent hospitalizations, it has been stopped. Borderline high blood pressure. We will need to be followed. (4) Stenosis of right carotid artery: Code(s): I65.21 - Occlusion and stenosis of right carotid artery Category: Medical Plan: Recent neck CTA with 75-80% stenosis in the right internal carotid artery. To be addressed by vascular surgery. Plan Discussion Notes During the visit, we discussed the patient's recent hospitalization and the management of his cardiovascular conditions, including congestive heart failure and atrial fibrillation. We reviewed the current medication regimen, including the diuretic therapy, and decided to add a new medication for heart failure that will not adversely affect renal function. The patient was advised to continue monitoring blood pressure and renal function closely, with follow-up appointments scheduled to reassess his condition. Patient was informed and verbally consented to the use of an ambient scribe for clinic note documentation during this visit. Total time spent including review of outside records, counseling, documentation, coordination of care-60 minutes. Medications: New dapagliflozin propanediol (Farxiga) 10 mg PO DAILY 90 tabs 1RF I48.19 - Other persistent atrial fibrillation Patient Instructions: - Continue taking your current medications as prescribed. - Monitor your blood pressure regularly and report any significant changes. - Attend follow-up appointments as scheduled to reassess your condition. - Report any new or worsening symptoms to your healthcare provider immediately. Coding Level of Care Code Est Pt Level 5 (95969) Complex EM visit Add On G2211 Diagnoses Persistent atrial fibrillation I48.19 Cardiomyopathy I42.9 Essential hypertension I10 Stenosis of right carotid artery I65.21
== END 2025-04-10 09:57 | disposition home or self-care (01) ==
LOC: HO.HCS 09:15
PROVIDERS: PCP Internal Medicine; Visit Provider Internal Medicine
DX: I48.19 Other persistent atrial fibrillation (principal); I11.9 Hypertensive heart disease without heart failure; I42.9 Cardiomyopathy, unspecified; I65.21 Occlusion and stenosis of right carotid artery
CPT/HCPCS: 99215; G2211

== ENCOUNTER → 2025-04-10 09:14 | Outpatient (BNVA) | payer MEDICARE, SELFPAY | PROVIDERS: PCP Internal Medicine; Visit Provider Internal Medicine | DX: I48.19 Other persistent atrial fibrillation (principal); I42.9 Cardiomyopathy, unspecified; I11.9 Hypertensive heart disease without heart failure; I65.21 Occlusion and stenosis of right carotid artery; E78.5 Hyperlipidemia, unspecified; Z79.82 Long term (current) use of aspirin; Z79.01 Long term (current) use of anticoagulants | CPT/HCPCS: 99212 ==

== ENCOUNTER 2025-04-16 11:47 | Inpatient (IN) | payer MEDICARE, SELFPAY ==
--- OUTSIDE RECORDS SUMMARY | 2025-03-20 10:45 | XMS_ITS ---
Author Organization [facility] Address [address] [place] [address] Care Team Providers Care Inside Sales Account Manager Name Role Phone John PENNY, Latoya Negrete Primary Care Provider Un available Francine Ibrahim Ciro [phone] Encounters Encounter Location Date Provider Diagnosis [address] [address] 03/20/2025 Francine Patrice Plan Of Treatment Next Appt Details Provider Name:Francine Ibrahim , 2025 01:30:00 PM, [address] [place] [address], [phone], Progress Notes * Alireza ROWAN MDOB: 4 (79 yo M)Acc No.[id number]:03/20/2025 Progress Note Patient: Alireza DENNISON Provider: Wen Ibrahim DPM :1945 A ge:79 Y S ex:Male Date:03/20/2025 Address:[address] [place] [phone] Pcp:Amol Yepez Subjective: * Chief Complaints: * [...] 03/20/2025 Generated for Floyd robertson/Marquis/Lorenzo on: 1 04:03 PM EDT
[2025-04-16] VITALS (18 sets, daily range): BP systolic 106–165; BP diastolic 46–76; PULSE 72–97; RESP 12–22; TEMP 36.4–36.8; O2SAT 85–99; BMI 30.7
--- NOTE | ~2025-04-16 | US_ITS ---
EXAMINATION: ULTRASOUND-GUIDED THORACENTESIS CLINICAL INFORMATION: Pleural effusion COMPARISON: Previous chest CT and chest x-ray from earlier this month TECHNIQUE: Procedure and risks and benefits including bleeding, infection and pneumothorax were discussed with the patient and informed consent was obtained. Left posterior chest was prepped and draped in the usual sterile fashion. The skin and soft tissues were anesthetized with 1% lidocaine plain. Using ultrasound guidance and a 4 [place] catheter, access to the left pleural effusion was obtained. 1.1 L of clear yellow fluid was removed. Diagnostic specimen was sent. FINDINGS: There is a large simple appearing left pleural effusion. US/US thoracentesis IMPRESSION: Ultrasound-guided left thoracentesis. Electronically signed by: Leda Dhillon MD 04/23/2025 10:59 AM EDT
--- NOTE | ~2025-04-16 | XR_ITS ---
EXAMINATION: XR CHEST CLINICAL INFORMATION: post right thora COMPARISON: April 19, 2025 TECHNIQUE: Frontal view of the chest was obtained. FINDINGS: Cardiomegaly is again noted. Basilar airspace opacity is decreasing in size. Right basilar opacity has improved. Pulmonary vascularity is more distinct on the current exam. XR/XR chest 1V IMPRESSION: Improved pulmonary vascular congestion and right pleural effusion. Decreasing left basilar density and pleural effusion. Cardiomegaly. Electronically signed by: Ruy Whittaker MD 04/22/2025 10:51 AM EDT
--- NOTE | ~2025-04-16 | XR_ITS ---
EXAMINATION: XR CHEST CLINICAL INFORMATION: post left thoracentesis COMPARISON: X-ray 04/22/2025 TECHNIQUE: Frontal view of the chest was obtained. FINDINGS: Stable cardiomegaly. Aortic arch calcification. Overlying cardiac leads. Low lung volumes. Small left pleural effusion, decreased from previous. Improving left basilar opacity. Persistent mild right basilar opacity. Similar small right pleural effusion. No pneumothorax is identified. No acute findings in the upper abdomen. XR/XR chest 1V IMPRESSION: Small left pleural effusion, decreased from the prior study. Improving left basilar opacity. Persistent mild right basilar opacity, small pleural effusion. Electronically signed by: Micah Melo MD 04/23/2025 10:26 AM EDT
--- NOTE | ~2025-04-16 | US_ITS ---
EXAMINATION: ULTRASOUND-GUIDED THORACENTESIS CLINICAL INFORMATION: Pleural effusion. COMPARISON: Chest x-ray 04/22/2025. TECHNIQUE: Following explaining ultrasound-guided thoracentesis procedure, benefits and risk, a written consent was obtained. Patient was placed upright sitting on preliminary imaging the right posterior chest was selected. An optimal site was selected along the inferior scapular line and marked approximately 10th interspace. The area marked was cleaned and draped in usual sterile manner with 2% chlorhexidine solution. 1% lidocaine at the puncture site. Through a small skin incision a 4 [place] catheter was inserted from the skin incision into the pleural space. After observing fluid return, stylet was withdrawn and catheter connected to vacuum bottle via connecting cannula. After obtaining all fluid and observing normal fluid return, catheter was withdrawn and complete hemostasis achieved at puncture site. Sterile dressing applied post procedure. Patient tolerated procedure extremely well. Patient was monitored by IR nursing and physician during the procedure without any event. FINDINGS: [place] in the ultrasound imaging there is moderate right and small left pleural effusion. The proximal 1.6 L of henri color fluid was drained from the right pleural space. US/US thoracentesis IMPRESSION: Successful ultrasound-guided diagnostic and therapeutic right thoracentesis performed. There are no immediate complications. Electronically signed by: Awais Vail MD 04/24/2025 01:38 PM EDT
--- NOTE | ~2025-04-16 | XR_ITS ---
EXAMINATION: XR CHEST CLINICAL INFORMATION: dyspnea, orthopnea COMPARISON: March 29, 2025. TECHNIQUE: Frontal view of the chest was obtained. FINDINGS: Indistinct margins in the perihilar regions and cardiomediastinal silhouette with opacities in both lower hemithoraces and blunting of the costophrenic angles. Poor inspiration. No gross pneumothorax. Heart silhouette appears enlarged. Multilevel spondylosis. Calcified plaque thoracic aortic arch. Patient's large body habitus. XR/XR chest 1V IMPRESSION: Pulmonary edema and bilateral pleural effusions with questionable cardiomegaly versus pericardial effusion. Worsened since prior exam. Electronically signed by: Jesus Clark MD 04/16/2025 01:44 PM EDT
--- NOTE | ~2025-04-16 | XR_ITS ---
CLINICAL HISTORY: CHF 2 view chest x-ray Comparison: 04/16/2025 Findings: There are bilateral pleural effusions with underlying lower lobe consolidation. Differential considerations would include pneumonia or atelectasis. Normal size heart. No acute fracture. IMPRESSION: 1. Bilateral lower lobe consolidation with pleural effusions, differential considerations noted This document has been electronically signed by: Suleiman Santoyo MD on 04/19/2025 09:05:49
--- NOTE | ~2025-04-16 | XR_ITS ---
EXAMINATION: XR CHEST CLINICAL INFORMATION: follow up pleural effusion, status post left-sided thoracocentesis. COMPARISON: April 21, 2025. TECHNIQUE: Frontal view of the chest was obtained. FINDINGS: No gross pneumothorax. Haziness in both lower hemithoraces. Meniscal shaped opacity right lower hemithorax. Blunting of the left ankle. Prominence of the interstitial markings in the perihilar region. Cardiomediastinal silhouette size is unchanged. Calcified plaque thoracic aortic arch. Gas-filled mildly prominent small bowel large intestine. Degenerative changes in the shoulders. Multilevel spondylosis. Osteopenia versus osteoporosis. XR/XR chest 1V IMPRESSION: Pulmonary edema and bilateral pleural effusions right greater than left side. Overall worsening since prior exam. No gross pneumothorax. Electronically signed by: Jesus Clark MD 04/24/2025 08:13 AM EDT
--- NOTE | ~2025-04-16 | CT_ITS ---
EXAMINATION: CT CHEST WITHOUT CONTRAST CLINICAL INFORMATION: Pleural effusions. COMPARISON: March 13, 2025. TECHNIQUE: Multidetector volumetric CT imaging of the chest was done. Axial MIP volume rendering provided. Sagittal and coronal reformatted images were obtained. This CT examination was performed using dose optimization techniques as appropriate, variously including the following: *Automated exposure control *Adjustment of mA and/or kV according to patient size (this includes techniques or standardized protocols for targeted exams where dose is matched to indication/reason for exam; i.e. extremities or head) *Use of iterative reconstruction technique. DLP: 261 mGy centimeter. FINDINGS: SENIOR EXECUTIVE COMPENSATION ANALYST: Patient's large body habitus. Meniscal shaped opacities both hemithoraces. Upper extremities at the size of the head. LUNGS: Patchy opacities with a mosaic pattern. No gross pulmonary nodule. Peribronchial ground's in the lung bases. MEDIASTINUM: Prominent mediastinal lymph nodes. Calcified plaque thoracic aorta and its main branches. Fluid in the aortic recesses. No gross aneurysm, thoracic aorta. Small trace pericardial effusion. No pneumomediastinum. No hemopericardium. Heart is not enlarged. Calcified plaques in the coronary arteries. The thyroid gland is not enlarged. CORONARY ARTERY CALCIFICATION: Calcified plaques. PLEURA: Large volume pleural effusions, bilaterally. No pneumothorax. No hemothorax. No calcified pleural plaques. AXILLA: No lymphadenopathy. UPPER ABDOMEN: Cholelithiasis. Calcified plaque splenic artery, abdominal aorta and celiac trunk and superior mesenteric arteries. OSSEOUS STRUCTURES: Sclerotic superior endplate compression deformity representing 30/40% volume loss without retropulsion at T4. Sclerotic superior endplate compression deformity representing 30% volume loss in the deep 2 vertebra and T12 vertebra. No acute fracture in the sternum. Degenerative changes in the shoulders. No acute rib fracture. CT/CT chest wo IV con IMPRESSION: Pulmonary edema and bilateral large volume pleural effusions. Cardiogenic versus nephrogenic. Subacute fractures at T4, T12 and T2 vertebral bodies. Coronary artery disease and atherosclerosis disease. Cholelithiasis. Fleischner guidelines were followed. Electronically signed by: Jesus Clark MD 04/21/2025 02:01 PM EDT
--- NOTE | 2025-04-16 11:56 | ED.GENADULT ---
HPI - General Adult General Chief complaint: Dyspnea Stated complaint: CHF flare up Time Seen by Provider: 04/16/25 12:38 History of Present Illness ED Provider: Erika PORTER narrative: The patient is an 79-year-old male. He has a history of a cardiomyopathy and persistent atrial fibrillation. He is on apixaban. Two months ago he took a trip to [place]. While in [place] he was critically ill with shortness of breath and was hospitalized for 35 days. I believe he was intubated during that episode. He ultimately improve sufficiently that he was discharged from the hospital. He then spent a week at his son's house in [place]. He then flew back to this area about 1 month ago. He returned to [place] on March 09. Four days later he presented to the hospital here because of weakness. He was admitted from March 14 through March 20, hospitalized with the an acute kidney injury. He was then briefly rehospitalized from March 29 through March 30 for shortness of breath secondary to congestive heart failure. The patient says that he has been off his furosemide for the past couple of weeks because he has been advised to stop it by his renal doctor. Today visiting nurses saw him and felt that he was hypoxic with a pulse oxygenation of 82% on room air at home. Therefore an ambulance was called and he was brought to the emergency department. He admits to increasing lower extremity edema. No chest pain. No cough or sputum. Related Data Home Medications ?Medication ?Instructions ?Recorded ?Confirmed acetaminophen 500 mg tablet 500 mg PO Q6H PRN Fever Or Pain 03/13/25 04/16/25 aspirin 81 mg tablet 81 mg PO DAILY 03/13/25 04/16/25 Previous Rx's ?Medication ?Instructions ?Recorded blood sugar diagnostic (OneTouch #100 ea 09/24/24 Verio test strips) blood-glucose meter (OneTouch #1 ea 09/24/24 Verio Flex Meter) lancets (Accu-Chek Softclix #100 ea 09/24/24 Lancets) tamsulosin 0.4 mg capsule 0.4 mg PO DAILY 90 days #90 caps 12/25/24 apixaban 2.5 mg tablet (Eliquis) 2.5 mg PO BID 30 days #60 tabs 03/20/25 sennosides 8.6 mg tablet (Senna 8.6 mg PO DAILY PRN Constipation 03/20/25 Lax) #14 tabs triamcinolone acetonide 0.1 % 1 appl topical BID #80 grams 03/30/25 topical cream zinc oxide 12 %-gauze bandage 4 X #1 ea 03/30/25 10 yard (Unna Boot) Allergies Allergy/AdvReac Type Severity Reaction Status Date / Time cephalexin (Keflex) Allergy Intermediate hives Verified 04/16/25 12:03 levofloxacin Allergy Intermediate Hives Verified 04/16/25 12:03 cetirizine (From [facility]) AdvReac Intermediate Fatigue Verified 04/16/25 12:03 Review of Systems Review of Systems: Yes all other systems are reviewed and are negative PMFSH Past Medical History Medical History Stasis dermatitis of both legs History of congestive heart failure Physical deconditioning Weakness Hypertensive retinopathy Posterior vitreous detachment, left eye Epiphora due to excess lacrimation of right side Senile ectropion of right lower eyelid BPH (benign prostatic hyperplasia) Type 2 diabetes mellitus without complication, with no history of insulin use Normocytic anemia Thrombocytopenia COVID-19 vaccine series completed 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 Social History Social History Household Members: None Housing: House Are you a primary assistant child care teacher to a significant other at home: No Do you presently have visiting nurse or other home services: Yes (patient has visiting nurse and physical therapy once a week) Patient Tobacco Use Status: Never used Tobacco e-Cigarette/Vaping Use: Never Used Second Hand Smoke Exposure: Yes Advance Directives Date on File: 12/28/23 service: No Current occupational status: retired Cognitive needs: No Hearing needs: No Vision needs: Yes Physical Exam ED Vital Signs: Vital Signs - 24 hr 04/16/25 11:58 04/16/25 14:06 04/16/25 14:07 Temperature 97.5 F Pulse Rate 79 88 Respiratory Rate 20 18 Blood Pressure 142/76 H 165/72 H 165/72 H Pulse Oximetry 85 L 93 Oxygen Delivery Method Room Air Nasal Cannula Oxygen Flow Rate 2 04/16/25 14:57 04/16/25 14:57 Temperature Pulse Rate 91 Respiratory Rate 21 H Blood Pressure 154/71 H Pulse Oximetry 90 L 93 Oxygen Delivery Method Nasal Cannula Nasal Cannula Oxygen Flow Rate 2 4 BMI result Body Mass Index 30.7 Const Other: The patient is a chronically ill-appearing 79-year-old man. He is awake. He seems hard of hearing. He speaks very slowly. He is not showing marked increased work of breathing however. HENMT Other: Face is symmetrical. Mucous membranes moist. Eyes Other: Pupils are round equal, conjunctivae are clear, extraocular movements intact Neck Other: JVD is present Resp Other: Diminished air entry bilaterally, no chinedu crackles Cardio Other: The patient has a an irregular rhythm. Rate is normal. No murmur heard GI Other: Abdomen is soft and nontender Skin Other: The patient has some chronic venous skin changes to the lower legs where there is a great deal of edema which is fairly firm. Neuro Other: The patient is hard of hearing but seems coherent. Cranial nerves seem grossly intact. He seems quite deconditioned and generally weak but without focal findings. Extrem Other: The patient has lower legs are thickly edematous Course Course Course Narrative: This is a Rapid Medical Examination (RME) performed by Jina Carrington PA-C in triage. Full HPI, ROS, assessment and treatment plan per primary provider in the Main ED. Hx: 79 yo M hx CHF, CKD, HTN, afib, T2DM, BPH presenting to the ED w/ CC of hypoxia O2 saturation of 82 recorded by home nurse. Denies cough. lasix discontinued 2 wks ago to give kidneys a break . compliant w/ all other meds. PE/vitals: 84% on RA, faint crackles to bases. 2+ pitting edema to LEs. Plan: labs, ekg, cxr Medications Administered Generic Name Dose Route Start Last Admin Trade Name Jimmy PRN Reason Stop Dose Admin Insulin Human Lispro 0 unit 04/16/25 16:30 04/16/25 21:35 Insulin Lispro 100 Unit/Ml 3 Ml Vial SUBCUT 4 unit QIDACHS NANCY Administration Protocol Sodium Chloride 3 ml 04/16/25 16:00 04/16/25 16:16 0.9 % Sodium Chloride Flush 3 Ml Syringe IVFLUSH 3 ml QSHIFT [facility] Administration Discontinued Medications Generic Name Dose Route Start Last Admin Trade Name Jimmy PRN Reason Stop Dose Admin Furosemide 40 mg 04/16/25 13:58 04/16/25 14:07 Furosemide 40 Mg/4 Ml Vial IVPUSH 04/16/25 13:59 40 mg STAT STA Administration Protocol Furosemide 40 mg 04/16/25 19:00 04/16/25 16:59 Furosemide 40 Mg/4 Ml Vial IVPUSH 04/16/25 19:01 40 mg ONCE ONE Administration Protocol Medical Decision Making Medical Decision Making [facility] Narrative: The patient is an 79-year-old male with a history of congestive heart failure and atrial fibrillation on anticoagulation who has been off his furosemide for the last 2 weeks and now seems to have developed significant peripheral edema as well as low oxygen saturations on room air. His chest x-ray looks quite bad. I think his chest x-ray looks worse than he does clinically. He was not exhibiting any increased work of breathing and his hypoxia was corrected with nasal oxygen. He was given 40 mg of IV furosemide. He will be admitted to the hospitalist service. Lab Data 04/16/25 13:08 04/16/25 19:48 Labs: Lab Results 04/16/25 04/16/25 04/16/25 Range/Units 13:08 13:09 13:14 WBC 7.7 (4.8-10.8) X10*3/uL RBC 3.18 L (4.60-5.80) X10*6/uL Hgb 8.9 L (14.0-18.0) g/dl Hct 28.2 L (42.0-52.0) % MCV 88.7 (80.0-98.0) fL MCH 28.0 (27.0-33.0) pg MCHC 31.6 (31.0-36.0) g/dl RDW 23.1 H (11.0-16.0) % Plt Count 222 (160-400) X10*3/uL MPV 10.1 (9.4-12.4) fL Immature Gran % (Auto) 1.2 H (0.0-0.4) % Neut % (Auto) 82.1 H (45-73) % Lymph % (Auto) 9.7 L (20-40) % [facility] % (Auto) 6.1 (2-11) % Eos % (Auto) 0.4 (0-4) % Baso % (Auto) 0.5 (0-2) % Lymph # (Auto) 0.8 L (1.2-4.9) X10*3/uL [facility] # (Auto) 0.5 (0.1-1.2) X10*3/uL Eos # (Auto) 0.0 (0.0-0.4) X10*3/uL Baso # (Auto) 0.0 (0.0-0.2) X10*3/uL Abs Immat Gran (auto) 0.09 H (0.00-0.03) X10*3/uL Absolute Neuts (auto) 6.4 (2.0-8.3) x10*3/uL Absolute Nucleated RBC 0.000 (0.0-0.012) X10*3/uL Nucleated RBC % (auto) 0.0 (0.0-0.2) /100WBC VBG pH 7.29 L (7.32-7.43) VBG pCO2 65 mmHg VBG pO2 60 mmHg VBG HCO3 32 H (22-26) mmol/L VBG O2 Saturation 81.0 % VBG Base Excess 4.4 mmol/L Sodium 135 (135-145) mmol/L Potassium 3.7 (3.3-5.1) mmol/L Chloride 99 (96-108) mmol/L Carbon Dioxide 28 (22-29) mmol/L Anion Gap 12 (12-20) BUN 18 H (9-16) mg/dL Creatinine 1.26 (0.5-1.4) mg/dL Estim Creat Clear Calc 55.3 Estimated GFR 55 Random Glucose 257 H (60-115) mg/dL Calcium 8.5 (8.4-10.2) mg/dL Magnesium 2.0 (1.6-2.6) mg/dL Total Bilirubin 0.7 (0.0-1.0) mg/dL AST 19 (5-37) U/L ALT < 6 (0-40) U/L Alkaline Phosphatase 100 (39-117) U/L Troponin I High Sens 6.4 (<3.5-35.0) ng/L NT-Pro-B Natriuret Pep 2960.2 H (<300) pg/mL Total Protein 5.9 L (6.5-8.0) g/dL Albumin 3.6 (3.5-5.0) g/dL Triglycerides 71 (<150) mg/dL Cholesterol 78 (<200) mg/dL LDL Cholesterol, Calc 33 (<100) mg/dL HDL Cholesterol 31 L (>40) mg/dL TSH 2.88 (0.32-4.0) uIU/mL Discharge Plan Discharge Clinical Impression: Acute exacerbation of congestive heart failure Patient Disposition: Admitted As Inpatient Discharge Date/Time: 04/16/25 18:57
--- NOTE | 2025-04-16 12:00 | ECG_ITS ---
Test Reason : SOB Blood Pressure : */* mmHG Vent. Rate : 88 BPM Atrial Rate : * BPM P-R Int : * ms QRS Dur : 106 ms QT Int : 350 ms P-R-T Axes : * -1 160 degrees QTcB Int : 423 ms Atrial fibrillation with premature ventricular or aberrantly conducted complexes Incomplete left bundle branch block Nonspecific T wave abnormality Abnormal ECG When compared with ECG of 13-Mar-2025 11:01, Incomplete left bundle branch block is now Present Referred By: Daria Carrington Electronically Signed By: Marcin Lopez
[2025-04-16 13:15] LABS: MANUAL DIFF FLAG NO
[2025-04-16 13:17] LABS: VBG HCO3 32 mmol/L (22-26); VBG O2 % Saturation 81.0 %
[2025-04-16 13:17] LABS: Venous Blood Gas Refer to POC result
[2025-04-16 13:21] LABS: Hematocrit 28.2 % (42.0-52.0); Hemoglobin 8.9 g/dl (14.0-18.0); Imm Gran Abs Auto 0.09 X10*3/uL (0.00-0.03); Imm Gran Pct Auto 1.2 % (0.0-0.4); Lymphocytes Absolute Auto 0.8 X10*3/uL (1.2-4.9); Mean Corpuscular HGB Conc 31.6 g/dl (31.0-36.0); Mean Corpuscular Hemoglobin 28.0 pg (27.0-33.0); Mean Corpuscular Volume 88.7 fL (80.0-98.0); NRBC Abs Auto 0.000 X10*3/uL (0.0-0.012); NRBC Pct Auto 0.0 /100WBC (0.0-0.2); Platelet Count 222 X10*3/uL (160-400); Red Blood Count 3.18 X10*6/uL (4.60-5.80); White Blood Count 7.7 X10*3/uL (4.8-10.8)
[2025-04-16 13:51] LABS: Troponin-I High Sensitivity 6.4 ng/L (<3.5-35.0)
[2025-04-16 13:52] LABS: Alanine Aminotransferase < 6 U/L (0-40); Albumin Level 3.6 g/dL (3.5-5.0); Anion Gap 12 (12-20); Aspartate Amino Transferase 19 U/L (5-37); Blood Urea Nitrogen 18 mg/dL (9-16); Calcium 8.5 mg/dL (8.4-10.2); Carbon Dioxide 28 mmol/L (22-29); Chloride 99 mmol/L (96-108); Creatinine Clr Calc Pharmacy 55.3; Estimated Glomerular Filt Rate 55; Magnesium 2.0 mg/dL (1.6-2.6); Potassium 3.7 mmol/L (3.3-5.1); Sodium 135 mmol/L (135-145); Total Protein 5.9 g/dL (6.5-8.0)
[2025-04-16 13:59] LABS: NT Pro B Type Natriuretic Pept 2960.2 pg/mL (<300)
[2025-04-16] MEDS: Furosemide 40 MG/4 ML VIAL IVPUSH ×2 (14:07→16:59)
[2025-04-16 14:12] LABS: Alkaline Phosphatase 100 U/L (39-117)
--- NOTE | 2025-04-16 15:22 | PHA.MEDREC ---
Pharmacy Consult ? Medication Reconciliation Pharmacy has completed the medication reconciliation. Patient was just discharged 03/30/25. Patient confirm the only change was his provider told him to stop Furosemide 20 mg. Patient last had his medications yesterday.
--- NOTE | 2025-04-16 15:24 | PHA.MEDREC ---
Addendum entered by Penelope Bryson RPh 04/16/25 16:30: MED REC REVIEWED BY [facility] Original Note: Pharmacy Consult ? Medication Reconciliation Pharmacy has completed the medication reconciliation. Patient was just discharged 03/30/25. Patient confirm the only change was his provider told him to stop Furosemide 20 mg. Patient last had his medications yesterday. Utilized discharge packet to confirm med list. Patient confirmed he is on Eliquis 2.5 mg BID not 5 mg.
--- OUTSIDE RECORDS SUMMARY | 2025-04-16 16:04 | XMS_ITS | Patient Health Record ---
Author Organization [facility] Address [address] [place] [address] Care Team Providers Care Manager Storage Name Role Phone John PENNY, Latoya Negrete Primary Care Provider Un available Black, Francine Unavailable [phone] Allergies Allergen (clinical drug ingredient) Drug/Non Drug [...] Polyneuropathy due to type 2 diabetes mellitus (962166140) Type 2 diabetes mellitus with diabetic polyneuropathy (E11.42) Active confirmed Vital Signs Blood pressure diastolic 76 mm Hg 01/09/2025 Height 5 ft 10 in in 01/09/2025 Blood pressure systolic 120 mm Hg 01/09/2025 Weight 228 lbs 01/09/2025 BMI 32.71 kg/m2 01/09/2025 Procedures Procedure Date Ordered Date Performed Result Body Sit e 21363-JLGDRPK NAIL, 6 OR MORE 06/03/2024 N/A 14396-HFLU SKIN LESIONS, OVER 4 06/03/2024 N/A 29313-JGAESDS NAIL, 6 OR MORE 09/09/2024 N/A 44376-Aqghqrpd Plate 09/09/2024 N/A 42079-NWGM SKIN LESIONS, OVER 4 09/09/2024 N/A 11316-Gqiwawcp Plate 10/09/2024 N/A 96503-HKVHUVS NAIL, 6 OR MORE 12/16/2024 N/A 10537-Gikwelka Plate 12/16/2024 N/A 17495-MITX SKIN LESIONS, OVER 4 12/16/2024 N/A 45165-Pgbslmuy Plate 01/09/2025 N/A 23458-Zyoqkyvl Plate Each Additional 01/09/2025 N/A Encounters Encounter Location Date Provider Diagnosis [address] [address] 06/03/2024 Francine Black Type 2 diabetes mellitus with diabetic polyneuropathy E11.42 ; Tinea unguium B35.1 ; Ingrown nail L60.0 and Edema, lower extremity R60.[address] [address] 09/09/2024 Francine Black Type 2 diabetes mellitus with diabetic polyneuropathy E11.42 ; Other hammer toe(s) (acquired), right foot M20.41 ; Tinea unguium B35.1 ; Ingrown nail L60.0 ; Edema, lower extremity R60.0 and Other hammer toe(s) (acquired), left foot M20.[address] [address] 10/09/2024 Francine Black Ingrown nail L60.0 a nd Type 2 diabetes mellitus with diabetic polyneuropathy E11.[address] [address] 12/16/2024 Francine Black Type 2 diabetes mellitus with diabetic polyneuropathy E11.42 ; Edema, lower extremity R60.0 ; Ingrown nail L60.0 and Tinea unguium B35.1 [facility] [address] [address] 01/09/2025 Francine Black Ingrown nail L60.0 a nd Type 2 diabetes mellitus with diabetic polyneuropathy E11.42 [facility] [address] 10/08/2024 Francine Black [facility] [address] 01/08/2025 Francine Black [facility] [address] [address] 03/20/2025 Francine Black Assessments Encounter Date Diagnosis [...] Order Date Microalbumin, 24 hr Urine 06/23/2015 76880-KKDUPAW NAIL, 6 OR MORE 12/16/2024 85150-PEDVVIR NAIL, 6 OR MORE 02/02/2023 44168-EPZWNLW NAIL, 6 OR MORE 05/11/2023 65721-JDGLFSH NAIL, 6 OR MORE 08/10/2023 16604-EAYBSAV NAIL, 6 OR MORE 11/13/2023 63332-MUKRPJK NAIL, 6 OR MORE 02/26/2024 60034-ZAULMOT NAIL, 6 OR MORE 06/03/2024 70638-OBDQWAI NAIL, 6 OR MORE 09/09/2024 82948-AIFHZAE NAIL, 6 OR MORE 05/05/2011 26572-SPSQEVQ NAIL, 6 OR MORE 09/19/2011 17270-MIYWXXZ NAIL, 6 OR MORE 11/03/2011 41340-IFFZZDE NAIL, 6 OR MORE 12/05/2011 58012-CNQJNGA NAIL, 6 OR MORE 11/27/2012 87185-OMBCQCO NAIL, 6 OR MORE 07/29/2013 06650-VFVVLIV NAIL, 6 OR MORE 01/27/2014 96238-WPEIHYD NAIL, 6 OR MORE 09/04/2015 77857-VQZCHBT NAIL, 6 OR MORE 12/02/2015 29451-OCOTEYV NAIL, 6 OR MORE 02/08/2016 03533-CDWIEVH NAIL, 6 OR MORE 04/25/2016 71811-WABSCJN NAIL, 6 OR MORE 07/11/2016 87282-BNIOKOO NAIL, 6 OR MORE 09/08/2016 79830-WFIVABV NAIL, 6 OR MORE 11/17/2016 92385-LMBVUIL NAIL, 6 OR MORE 02/02/2017 80035-WKNIJZS NAIL, 6 OR MORE 04/11/2017 69675-IMFKHJF NAIL, 6 OR MORE 07/05/2017 90403-ULLSFHC NAIL, 6 OR MORE 09/14/2017 59176-CNMSVNJ NAIL, 6 OR MORE 11/20/2017 83926-XILQNVR NAIL, 6 OR MORE 01/29/2018 36613-OULOABL NAIL, 6 OR MORE 06/12/2018 19273-AZJUAYN NAIL, 6 OR MORE 08/27/2018 15404-RTOBYZG NAIL, 6 OR MORE 11/05/2018 24785-ZQMSFPL NAIL, 6 OR MORE 03/05/2019 63297-ZCZZIEY NAIL, 6 OR MORE 05/13/2019 40745-LGLGUDW NAIL, 6 OR MORE 08/05/2019 82722-JFNCZSS NAIL, 6 OR MORE 10/28/2019 61923-GURCVUX NAIL, 6 OR MORE 03/26/2020 62258-YVHNXNB NAIL, 6 OR MORE 12/23/2019 15216-IRKYFMU NAIL, 6 OR MORE 06/11/2020 20821-TZFDTCP NAIL, 6 OR MORE 08/20/2020 74815-WMGTXHB NAIL, 6 OR MORE 10/22/2020 03799-WNBOGFT NAIL, 6 OR MORE 12/31/2020 20272-QZDQKTJ NAIL, 6 OR MORE 04/19/2021 42808-QQWDTGR NAIL, 6 OR MORE 07/15/2021 20155-LCYXMME NAIL, 6 OR MORE 10/04/2021 95981-LZLNSUQ NAIL, 6 OR MORE 02/08/2022 15374-OGDUEHE NAIL, 6 OR MORE 04/25/2022 66713-AJQQAMY NAIL, 6 OR MORE 08/01/2022 63821-HYIUYZI NAIL, 6 OR MORE 11/03/2022 84075-XEMAGLA NAIL, 1-5 04/03/2015 79732-LYSIVAG NAIL, 1-5 06/16/2015 99550-BBUHYKB NAIL, 1-5 07/28/2014 04839-AWMBLBY NAIL, 1-5 04/30/2012 66347-IPHSTCC NAIL, 1-5 11/27/2014 50253-AJSHXDH NAIL, 1-5 01/26/2015 08376-Ylnx Destruction, -14 04/25/2022 50979-Dymd Destruction, -14 08/01/2022 32073-Lmcz Destruction, -14 11/03/2022 65388-Qawlunwc Plate 09/09/2024 94728-Meaitbnp Plate 10/09/2024 04771-Izfznudc Plate 02/26/2024 26934-Ihkuahjz Plate 11/13/2023 09030-Zvfynhxs Plate 12/16/2024 40398-Mbxvqsvp Plate 01/09/2025 84230-Okldkhzp Plate 11/03/2022 72939-Hbmlfqcu Plate 02/02/2023 19958-Ntmfavkr Plate 02/08/2022 97819-Cyvrrrpb Plate 10/04/2021 68770-Apxjdcpm Plate 10/28/2019 92229-Tytrerop Plate 04/19/2021 16194-Jphnbffd Plate 12/31/2020 93310-Xpschjce Plate 01/16/2020 81086-Czvxuoqu Plate 01/23/2020 26700-Zziilxvp Plate 03/05/2019 71015-Bksfabrn Plate 05/13/2019 48191-Pqpfiysc Plate 08/27/2018 31024-Plubnprw Plate 01/29/2018 59451-Odiobshd Plate 06/12/2018 88372-Wqrjkubf Plate 01/26/2015 28418-Ihzgnclk Plate 04/03/2015 43982-Pjidlspp Plate 01/27/2014 64931-Uatstcis Plate 03/13/2014 53680-Zfktjaod Plate 07/29/2013 68146-Vnpthecm Plate 11/27/2012 24500-Vpfqdpyk Plate 03/09/2012 63768-Peiedshx Plate 04/30/2012 79606-Yaikcpqc Plate 12/05/2011 43655-Zdvqufer Plate 02/23/2012 92653-Obmowfdt Plate 11/03/2011 24962-Jajpvvdl Plate 09/19/2011 62759-Cosqbeyk Plate 05/05/2011 58110-Lpgsguxg Plate 06/06/2011 77682-Dbaxwpvm Plate 07/28/2014 13876-Dasdsdcj Plate 11/27/2014 22800-Hmuwsfxg Plate 07/11/2016 33234-Bpnxqhlo Plate 04/25/2016 07504-Nmtdfxju Plate 09/14/2017 38718-Emorpgsi Plate 04/11/2017 19978-Siuxxnax Plate 02/08/2016 36820-Evugnfev Plate 11/17/2016 86973-Klfzngzl Plate 09/08/2016 83047-Spmzhcgc Plate Each Additional 06804-Isuysnzr Plate Each Additional 09/2011 18592-Rciddere Plate Each Additional 16926-Yiuqigqy Plate Each Additional 01/2012 30907-Ltqbjxoy Plate Each Additional 29955-Agunqolo Plate Each Additional 44252-Zplpbjyg Plate Each Additional 74368-Wmgaychs Plate Each Additional 07/2020 39901-Qrmpzonr Plate Each Additional 03/2022 06893-Ucjmpwdn Plate Each Additional 04/2025 63143-GWE 01/11/2012 99122- Debride <25 sq cm 01/30/2012 62246- Debride <25 sq cm 02/23/2012 88911- Debride <25 sq cm 04/30/2012 86396- Debride <25 sq cm 04/24/2017 90086- Debride <25 sq cm 01/30/2020 23052- Debride <25 sq cm 02/13/2020 64217- Debride <25 sq cm 02/27/2020 07234- Debride <25 sq cm 01/23/2020 27331- Debride <25 sq cm 03/26/2020 49404- Debride <25 sq cm 04/06/2020 88907-ZUTDBAA SKIN/TISSUE 03/09/2012 25870 I&D ABSCESS- SIMPLE,SINGLE 014 11593 I&D ABSCESS- SIMPLE,SINGLE 022 71563-VBXC SKIN LESIONS, OVER 4 10/05/19 22 52214-NBSW SKIN LESIONS, OVER 4 08/01/19 23 22948-ESAT SKIN LESIONS, OVER 4 04/25/20 22 13542-NPOU SKIN LESIONS, OVER 4 02/03/20 23 78338-KLZI SKIN LESIONS, OVER 4 11/04/19 23 92292-SDWX SKIN LESIONS, OVER 4 12/23/19 20 33842-LEUH SKIN LESIONS, OVER 4 10/28/19 20 55353-KHTC SKIN LESIONS, OVER 4 08/27/19 19 82747-SMKS SKIN LESIONS, OVER 4 06/12/20 18 47275-EGQE SKIN LESIONS, OVER 4 01/30/20 18 64421-OGSF SKIN LESIONS, OVER 4 11/06/19 19 32123-VCRJ SKIN LESIONS, OVER 4 03/05/20 19 81957-VYEK SKIN LESIONS, OVER 4 05/13/20 19 56871-RFIN SKIN LESIONS, OVER 4 08/05/19 20 47547-XIDO SKIN LESIONS, OVER 4 04/03/20 15 87960-NAED SKIN LESIONS, OVER 4 07/05/19 18 30820-DJET SKIN LESIONS, OVER 4 04/11/20 17 82818-UVUT SKIN LESIONS, OVER 4 11/21/19 18 55696-JYLJ SKIN LESIONS, OVER 4 09/15/19 18 71502-LZIB SKIN LESIONS, OVER 4 11/18/19 17 15308-QYDL SKIN LESIONS, OVER 4 09/09/19 17 28060-NHFK SKIN LESIONS, OVER 4 02/03/20 17 80328-YSQP SKIN LESIONS, OVER 4 04/25/20 16 69324-OYOB SKIN LESIONS, OVER 4 07/11/19 17 60747-NGND SKIN LESIONS, OVER 4 02/08/20 16 18778-TTEU SKIN LESIONS, OVER 4 12/02/19 16 07513-IMPU SKIN LESIONS, OVER 4 09/04/19 16 69832-EMGQ SKIN LESIONS, OVER 4 06/16/20 15 40174-ZSLM SKIN LESIONS, OVER 4 11/13/19 24 80147-EQES SKIN LESIONS, OVER 4 02/26/20 24 20306-ZJWC SKIN LESIONS, OVER 4 08/10/19 24 13655-MWBR SKIN LESIONS, OVER 4 05/11/20 23 31903-EUZT SKIN LESIONS, OVER 4 12/17/19 25 14519-YBVH SKIN LESIONS, OVER 4 09/10/19 25 19636-JSSN SKIN LESIONS, OVER 4 06/03/20 24 27748-BMTJ SKIN LESIONS, 2 TO 4 03/26/20 20 92547-AIWJ SKIN LESIONS, 2 TO 4 06/11/20 20 46094-MZFP SKIN LESIONS, 2 TO 4 08/20/19 21 02813-MVSN SKIN LESIONS, 2 TO 4 02/09/20 22 20784-IPKX SKIN LESIONS, 2 TO 4 07/15/19 22 38159-HYSC SKIN LESIONS, 2 TO 4 04/19/20 21 40063-TVCT SKIN LESIONS, 2 TO 4 01/01/20 21 66761-GBRA SKIN LESIONS, 2 TO 4 10/23/19 21 G3823-TMJNSFTP DYSTROPHIC NAILS ANY # Next Appt Details Provider Name:Francine Warner Patrice , 2025 01:30:00 PM, [address] [place], [address], Insurance Providers Payer Name Payer Address Payer Phone Subscriber Number Group Number Insured Name Patient Relationship to Insured Coverage Start Date Coverage End Date [employer] Medicare Adv-[id number] [address] [address] [place] [address] [id number] NeryAlireza leavitt Self - patient is the insured 6 Medical (General) History Medical History History ICD Code mumps back, hip, knee pain type II diabetes Hay fever Other hammer toe(s) (acquired), right fo ot M20.41 Other hammer toe(s) (acquired), left jasmin t M20.42 Surgical History Surgery Date(Month/Year) left knee arthroscopy 1995 left knee replacement 08/28/2012
--- OUTSIDE RECORDS SUMMARY | 2025-04-16 16:05 | XMS_ITS | Patient Health Record ---
Author Organization [facility] Address [address] [place] [address] Care Team Providers Care Sales Planning Manager Name Role Phone John PENNY, Latoya Primary Care Provider Isma Vu Unavailable [phone] Allergies Allergen (clinical drug ingredient) Drug/Non Drug [...] 1 tablet Orally Once a day; Duration: 30 day(s) Not-Taking Eliquis 5 MG TK 1 T PO BID Oral; Duration: 30 Active Simvastatin 10 MG 1 tablet in the even ing Orally every other evening Not-Taking Triamcinolone Acetonide 0.1 % External; Duration: 25 Days Active Furosemide 40 MG TK 1 T PO QD Oral; Duration: 90 Not-Taking Triamcinolone Acetonide 0.1 % External; Duration: 25 Days Active metFORMIN HCl 1000 MG TK 1 T PO BID WF O rally Once a day Not-Taking Eliquis 2.5 MG Oral; Duration: 30 Days Active glipiZIDE ER 2.5 MG TK 1 T PO QD IN THE MORNING WITH ANGELA Oral 1 tablet in the morning with breakfast Not-Taking Senna 8.6 MG TAKE 1 TABLET BY TED TH EVERY DAY NEEDED FOR CONSTIPATION Oral; Duration: 14 Days Active Eliquis 5 MG TAKE 1 TABLET BY TED TH TWICE DAILY Oral; Duration: 90 Days Active Bydureon 2 MG 1 Subcutaneous once a week Not-Taking FeroSul 325 (65 Fe) MG TAKE 1 TABLET BY MOUTH DAILY Oral; Duration: 90 Not-Taking Doxazosin Mesylate 1 MG Oral; Duration: 30 Days Active Tamsulosin HCl 0.4 MG Oral; Duration: 90 Days Active metFORMIN HCl 1000 MG TAKE 1 TABLET BY M OUTH TWICE DAILY Oral; Duration: 90 Days Active ALPRAZolam 0.5 MG TAKE 1 TABLET BY TED TH EVERY 8 HOURS NEEDED FOR ANXIETY FOR 5 DAYS Oral; Duration: 5 Days Active oxyCODONE HCl 5 MG Oral; Duration: 5 Days Active Lisinopril 20 MG TAKE 1 TABLET BY TED TH TWICE DAILY Oral; Duration: 15 Days Active Bumetanide 1 MG TAKE 1 TABLET BY TED TH TWICE DAILY Oral; Duration: 30 Days Active Atorvastatin Calcium 40 MG Oral; Duration: 30 Days Acti ve Metoprolol Tartrate 25 MG TAKE 1 TABLET BY MOUTH TWICE DAILY Oral; Duration: 30 Days Active metOLazone 2.5 MG TAKE 1 TABLET BY TED TH DAILY Oral; Duration: 60 Days Active Potassium Chloride Emilie ER 20 MEQ TAKE 1 TABLET BY MOUTH DAILY Oral; Duration: 30 Days Active Ozempic (0.25 or 0.5 MG/DOSE) 2 MG/3ML ADMINISTER 0.25 MG UNDER THE SKIN EVERY WEEK FOR 4 WEEKS Subcutaneous; Duration: 28 Days Active Metoprolol Tartrate 50 MG TAKE 1 TABLET BY MOUTH TWICE DAILY Oral; Duration: 90 Days Active glipiZIDE ER 2.5 MG TAKE 1 TABLET BY TED TH EVERY MORNING Oral; Duration: 90 Days Active Metoprolol Succinate 25 MG 1 capsule Orally Once a day; Duration: 30 day(s) Not-Taking Immunizations Vaccine Route Administration Date Status Comme nts Influenza Unknown 04/06/2020 Administered Influenza Unknown 05/19/2021 Administered Influenza Unknown 04/12/2022 Administered Influenza Unknown 04/08/2024 Administered Social History AUDIT-C (Standard) Question Answer Notes Did you have a drink containing alcohol in the p ast year? No Points 0 Interpretation Negative Section Notes: Nonsmoker; no alcohol Nonsmoker; no alcohol Nonsmoker; no alcohol Nonsmoker; no alcohol Nonsmoker; no alcohol Nonsmoker; no alcohol Nonsmoker; no alcohol Nonsmoker; no alcohol Nonsmoker; no alcohol Problems Problem Type SNOMED Code ICD Code Onset Dates Problem Status W/U Status Risk Notes Problem Screening for malignant neoplasm of colon (617569996) Encounter for screening for malignant neoplasm of colon (Z12.11) Active confirmed Problem History of adenomatous polyp of colon (628949882) History of adenomatous polyp of colon (Z86.010) Active confirmed Problem Iron deficiency anemia (76345316) Iron deficiency anemia (D50.9) Active confirmed Problem Preprocedural examination (258968921264825) Preprocedural examination (Z01.818) Active confirmed Problem History of polyp of colon (situation) (888283280) History of colon polyps (Z86.010) Active confirmed Problem Anemia (644843708) Anemia (D64.9) Active confirmed Problem Long-term current use of antiplatelet drug (919395520787276) Long-term use of aspirin therapy (Z79.82) Active confirmed Problem Constipation (63517384) Constipation, unspecified constipation type (K59.00) Active confirmed Problem Iron deficiency anemia (20060925) Other iron deficiency anemia (D50.8) Active confirmed Problem Long-term current use of anticoagulant (408978926) Anticoagulant long-term use (Z79.01) Active confirmed Problem Iron deficiency anemia (54689590) Iron deficiency anemia, unspecified iron deficiency anemia type (D50.9) Active confirmed Problem Mucosal abnormality of duodenum (K31.9) Active confirmed Problem Diverticulosis of colon (542242829) Diverticulosis of colon (K57.30) Active confirmed Vital Signs Temperature 97.8 degrees Fahrenheit 04/08/2025 Blood pressure diastolic 01 mm Hg 04/08/2025 Height 70 in 04/08/2025 Blood pressure systolic 001 mm Hg 04/08/2025 Weight 226.4 lbs 04/08/2025 BMI 32.48 kg/m2 04/08/2025 Encounters Encounter Location Date Provider Diagnosis [facility] [address] [place] [address] 04/08/2025 Isma Yepez Anemia D64.9 Assessments Encounter Date Diagnosis (ICD Code) Assessment Notes Treatment Notes Treatment Clinical Notes Section Notes 04/08/2025 Anemia (ICD-10 - D64.9) Overall, Alireza appears stable from a GI standpoint as he is not having any particular localizing GI complaints. However, he clearly is having other medical issues in regard to his CHF and cardiopulmonary symptomatology. We did discuss his anemia which does not seem to be GI related given a recent negative Hemoccult specimen and a normal MCV. As you know, has had multiple colonoscopies, including a negative exam in 2021. He does have the question of celiac disease, which could cause iron malabsorption, but iron studies as of last year were still normal despite his not being on a gluten-free diet. He also does not have any particular symptoms of celiac disease at this time. We did discuss his anemia could be that of chronic disease, as well as some relation to some mild renal insufficiency. I do not think he needs any particular intervention from a GI standpoint at this time. However I shall check a follow-up CBC, iron profile, B12 level, and folate level. I advised him that I will be in touch with those results in the event he needs some supplementation in regard to some oral iron and folic acid, or B12 shots, we did review that I do not think he would require any further endoscopic intervention on my part, particularly in light of his significant medical issues at the present time. If things are stable from a GI standpoint he would otherwise see me on an as needed basis. I did advise him and his [id number] to certainly call if he has any questions or problems I can be of assistance with. They were both comfortable with this plan. Thank you again for allowing me to participate in Alireza's care. I shall continue to keep you advised of his progress. Please do not hesitate to contact me if I can be of any further assistance in the future. Plan Of Treatment Pending Test Test Name Order Date IRON + IBC (FE) 04/12/2022 IRON + IBC (FE) 04/08/2025 IRON + IBC (FE) 08/08/2023 IRON + IBC (FE) 10/04/2021 VITAMIN B12 AND FOLATE 08/08/2023 VITAMIN B12 AND FOLATE 10/04/2021 CBC w DIFF 08/08/2023 CBC w DIFF 10/04/2021 CBC w DIFF 04/12/2022 CBC w DIFF 04/08/2025 CELIAC PANEL #10 08/08/2023 CELIAC PANEL #10 09/17/2021 Ferritin 10/04/2021 Ferritin 04/08/2025 Vitamin B12 and Folate 04/08/2025 Future Test Test Name Order Date COLONOSCOPY 08/27/2013 COLONOSCOPY 03/21/2017 COLONOSCOPY 04/07/2020 UPPER GI ENDOSCOPY 08/06/2021 COLONOSCOPY 08/06/2021 Insurance Providers Payer Name Payer Address Payer Phone Subscriber Number Group Number Insured Name Patient Relationship to Insured Coverage Start Date Coverage End Date [facility] [address] [address] [place] [address] [id number] ALIREZA ROWAN Self - patient is the insured Medical (General) History Medical History History ICD Code Colonoscopy 07-20-2007 and 2003- tubular adenomas removed Hyperlipidemia NIDDM Hypertension Denies [place],CVA,Lung disease,renal disease BPH Colonoscopy in 04/2013 with the removal of a large tubulovillous adenoma in the very proximal ascending colon. Colonoscopy in 12/2013 was ne gative except for diverticulosis and internal hemorrhoids Atrial fibrillation- Dr. Keller Colonoscopy in 06/2017 with removal of a tubulovillous adenoma from the distal rectum Colonoscopy in 05/2020 with removal of 2 tubular adenomas, but there was a relatively poor prep Iron deficiency anemia- he u nderwent an upper endoscopy and colonoscopy in August of 2021. His colonoscopy was unremarkable. The upper endoscopy revealed duodenal biopsies consistent with possible underlying celiac disease with some villous blunting and increased intraepithelial lymphocytes. Followup laboratories for celiac disease were negative. He was not started on a gluten-free diet as he was otherwise asymptomatic. He was started on iron supplements. 01/2025-03/2025-Hospitalizatio ns for CHF, lower extremity edema, and anemia with a hemoglobin between 8 and 9. Stool was Hemoccult negative. He was found to have some narrowing of the right carotid artery. Surgical History Surgery Date(Month/Year) Deviated septum Left knee replacement in 08/2012 Hospitalization History Reason Date(Month/Year)
--- NOTE | 2025-04-16 16:15 | PM.IMHP ---
History of Present Illness Date of Service: 04/16/25 Attending physician on admission: Tj Tarango Chief Complaint: shortness of breath 79-year-old male who presented to hospital for shortness of breath. Patient found to be in acute hypoxic respiratory failure, began approximately 1-2 weeks ago, patient states that he visited his brewer helper, who suggested on discontinuing his diuretics, to assess kidney function and heart failure. Patient then began with worsening shortness of breath on minimal exertion. On arrival, patient is saturating 84% on room air, with rales, 2+ pitting edema. ProBNP 296. Chest x-ray with pulmonary edema and bilateral pleural effusions. Patient received 40 mg of IV Lasix. At this time patient states then he continued to feel short of breath on minimal exertion. Patient does not recall dose of Lasix, however on chart review patient was recently prescribed Bumex 1 mg b.i.d. on 03/04/2025. Of note, patient was recently in [facility] and had to be hospitalized for 35 days for exacerbation, requiring intubation. At the time patient was on Bumex and Lasix per patient and son report, course was complicated by VERENA. Review of Systems Review of Systems: Fourteen point review of systems obtained, negative except as stated above. 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 Surgical History Status post cardiac catheterization Hx of cardiac catheterization History of hydrocelectomy Hx of transurethral resection of prostate H/O colonoscopy Deviated septum History of left knee replacement Social History Household Members: None Housing: House Are you a primary respiratory care specialist to a significant other at home: No Do you presently have visiting nurse or other home services: Yes Patient Tobacco Use Status: Never used Tobacco Smoked in Last 30 Days: No e-Cigarette/Vaping Use: Never Used Second Hand Smoke Exposure: Yes Use of substances other than those prescribed or required for medical reasons: No Advance Directives: Yes Advance Directives on File: Yes Advance Directives Date on File: 12/28/23 service: No Current occupational status: retired Cognitive needs: No Hearing needs: No Vision needs: Yes Meds Allergies Allergy/AdvReac Type Severity Reaction Status Date / Time cephalexin (Keflex) Allergy Intermediate hives Verified 04/16/25 12:03 levofloxacin Allergy Intermediate Hives Verified 04/16/25 12:03 cetirizine (From Zyrtec) AdvReac Intermediate Fatigue Verified 04/16/25 12:03 Active Medications: Current Medications Acetaminophen (Acetaminophen 325 Mg Tablet) 650 mg PO Q6H PRN PRN Reason: Pain, Mild 1-3,fever,headache Apixaban (Apixaban 2.5 Mg Tablet) 2.5 mg PO BID NANCY Aspirin (Aspirin 81 Mg Tab.Chew) 81 mg PO DAILY NANCY Calcium Carbonate (Calcium Carbonate 750 Mg Tab.Chew) 750 mg PO Q4H PRN PRN Reason: Heartburn Dextrose (Dextrose 50 % 25 Gm/50 Ml Syringe) 25 gm IVPUSH Q15M PRN; Protocol PRN Reason: per Hypoglycemia Standing Ord. Furosemide (Furosemide 40 Mg/4 Ml Vial) 80 mg IVPUSH BIDWM NANCY; Protocol Stop: 04/18/25 08:01 Furosemide (Furosemide 40 Mg/4 Ml Vial) 40 mg IVPUSH ONCE ONE; Protocol Stop: 04/16/25 19:01 Glucose (Glucose Gel 15 Gm Gel..Gram.) 15 gm PO Q15M PRN; Protocol PRN Reason: per Hypoglycemia Standing Ord. Insulin Human Lispro (Insulin Lispro 100 Unit/Ml 3 Ml Vial) 0 unit SUBCUT QIDACHS [facility]; Protocol Magnesium Hydroxide (Milk Of Magnesia 30 Ml Oral.Susp) 30 ml PO DAILY PRN PRN Reason: Constipation Melatonin (Melatonin 3 Mg Tablet) 6 mg PO BEDTIME PRN PRN Reason: Insomnia Sodium Chloride (0.9 % Sodium Chloride Flush 3 Ml Syringe) 3 ml IVFLUSH QSHIFT NANCY Tamsulosin HCl (Tamsulosin Hcl 0.4 Mg Capsule) 0.4 mg PO DAILY [facility] Home Medications ?Medication ?Instructions ?Recorded ?Confirmed ?Last Taken ?Type acetaminophen 500 mg tablet 500 mg PO Q6H PRN Fever Or Pain 03/13/25 04/16/25 Unknown History aspirin 81 mg tablet 81 mg PO DAILY 03/13/25 04/16/25 04/15/25 History Physical Exam Vital Signs and Narrative: Vital Signs: Last Vital Signs Temp 98.2 F 04/16/25 16:00 Pulse 90 04/16/25 16:00 Resp 22 H 04/16/25 16:00 BP 150/72 H 04/16/25 16:00 Pulse Ox 98 04/16/25 16:00 O2 Del Method Nasal Cannula 04/16/25 16:00 O2 Flow Rate 4 04/16/25 16:00 BMI result Body Mass Index 30.7 General: AxOx3, In acute distress on supplemental oxygen Head: AT/NC ENT: Moist mucous membranes Neck: supple CVS; irregular rate and rhythm, S1 S2 normal Lungs: Bilateral rales Abd: Soft non tender, non distended Ext: Anasarca w/ sacral edema MSK: moving all 4 limbs Skin: BLE edema 2+ Psych: Cooperative with exam Neurology: no focal deficit Results Labs 04/16/25 13:08 04/16/25 13:08 Labs: Laboratory Results - last 24 hr 04/16/25 04/16/25 13:08 13:14 MCV 88.7 MCH 28.0 MCHC 31.6 RDW 23.1 H Plt Count 222 MPV 10.1 Immature Gran % (Auto) 1.2 H Neut % (Auto) 82.1 H Lymph % (Auto) 9.7 L [place] % (Auto) 6.1 Eos % (Auto) 0.4 Baso % (Auto) 0.5 Lymph # (Auto) 0.8 L [place] # (Auto) 0.5 Eos # (Auto) 0.0 Baso # (Auto) 0.0 Abs Immat Gran (auto) 0.09 H Absolute Neuts (auto) 6.4 Absolute Nucleated RBC 0.000 Nucleated RBC % (auto) 0.0 VBG pH 7.29 L VBG pCO2 65 VBG pO2 60 VBG HCO3 32 H VBG O2 Saturation 81.0 VBG Base Excess 4.4 Anion Gap 12 Estim Creat Clear Calc 55.3 Estimated GFR 55 Random Glucose 257 H Calcium 8.5 Magnesium 2.0 Total Bilirubin 0.7 AST 19 ALT < 6 Alkaline Phosphatase 100 Troponin I High Sens 6.4 NT-Pro-B Natriuret Pep 2960.2 H Total Protein 5.9 L Albumin 3.6 Imaging Radiologist's Impressions: Impressions Chest X-Ray 04/16/25 13:31 IMPRESSION: Pulmonary edema and bilateral pleural effusions with questionable cardiomegaly versus pericardial effusion. Worsened since prior exam. Electronically signed by: Jesus Clark MD 04/16/2025 01:44 PM EDT RP Assessment and Plan (1) Congestive heart failure: Status: Acute (2) Acute exacerbation of congestive heart failure: Status: Acute (3) Persistent atrial fibrillation: Status: Acute (4) Type 2 diabetes mellitus without complication, with no history of insulin use: Status: Acute (5) CKD (chronic kidney disease): Status: Acute (6) BPH (benign prostatic hyperplasia): Status: Acute (7) Normocytic anemia: Status: Acute Plan Acute heart failure exacerbation, likely secondary to medication noncompliance Bilateral pleural effusions Heart failure, chronic Acute hypoxic respiratory failure, likely secondary to heart failure -per patient, was not taking diuretics at home for the past 2 weeks. -status post IV Lasix given, patient previously on Bumex 1 mg p.o. b.i.d., at this time we will convert to IV Lasix and initiate 80 mg IV b.i.d. -at this time we will only treat with IV diuretics, we will hold off on any GDM T at this time. -continue with supplemental oxygen for SpO2 greater than 92%. -TTE ordered -Cardiology consulted -daily weights -cardiac, low-salt diet -Fluid restriction Persistent atrial fibrillation -EKG reviewed with AFib -continue with Eliquis 2.5 mg b.i.d. -Place on telemetry -Cardiology consulted T2DM, chronic Insulin sliding scale, to maintain glucose between 140-180 mg/dL Will adjust medications accordingly BPH -continue with tamsulosin, monitor for any signs of retention. Hypertension, chronic Chronic kidney disease We will closely monitor creatinine function, continue with IV diuretics, avoid nephrotoxic medication and renally adjust medications Anemia of chronic disease Monitor for any signs of bleeding, hematuria, melena Transfuse for hemoglobin less than 7-8 Ambulatory dysfunction Generalized weakness Continue PT/OT as able, fall precautions FEN:Fluid restriction, replete as needed, cardiac low salt diet GI PPx: not indicated DVT PPx: Eliquis DISCLAIMER: This document was created using voice recognition software. Any mistakes in the prescription are unintentional. An attempt was made to focus for accuracy, but to expedite availability, some errors may persist. Please contact with any need for correction or further clarification. Quality Stroke Does the patient have a stroke diagnosis?: No VTE Prior VTE?: No VTE Risk Level:: Medical - moderate - high VTE Device Contraindication: Treatment Not Indicated VTE Drug Contraindication: N/A - Med Ordered
[2025-04-16] MEDS: 0.9 % Sodium Chloride Flush 3 ML SYRINGE IVFLUSH ×2 (16:16→23:33)
--- NOTE | 2025-04-16 16:59 | PC.NURSE ---
PTS BREATHING NOTED TO LOOK MORE LABORED, PT LETHARGIC. RT AND MD NOTIFIED. PT PLACED ON BIPAP BY RT. PER MD GIVE 7PM DOSE OF LASIX NOW
[2025-04-16 17:00] LABS: ABG Refer to POC result
[2025-04-16 17:01] LABS: ABG HCO3 31 mmol/L (22-26); ABG O2 % Saturation 99.0 %
[2025-04-16 17:15] LABS: Glucose, Whole Blood 278 mg/dL (60-115)
[2025-04-16 17:16] LABS: Cholesterol 78 mg/dL (<200); HDL Cholesterol 31 mg/dL (>40); Triglycerides 71 mg/dL (<150)
--- NOTE | 2025-04-16 18:34 | PC.NURSE ---
Pt resting, breathing improved significantly on BIPAP. VSS.
--- NOTE | 2025-04-16 18:37 | PC.NURSE ---
Per ICU doc give sliding scale insulin. Report given to Brandon [facility]INAS ICU
--- NOTE | 2025-04-16 18:40 | PC.NURSE ---
BIPAP 18/8, 30%, RR 18
[2025-04-16 19:28] LABS: ABG HCO3 31 mmol/L (22-26); ABG O2 % Saturation 99.0 %
[2025-04-16 19:58] LABS: VBG HCO3 33 mmol/L (22-26); VBG O2 % Saturation 62.0 %
[2025-04-16 19:58] LABS: Venous Blood Gas Refer to POC result
[2025-04-16 20:12] LABS: Anion Gap 9 (12-20); Blood Urea Nitrogen 17 mg/dL (9-16); Calcium 8.6 mg/dL (8.4-10.2); Carbon Dioxide 30 mmol/L (22-29); Chloride 100 mmol/L (96-108); Creatinine Clr Calc Pharmacy 50.5; Estimated Glomerular Filt Rate 49; Magnesium 1.8 mg/dL (1.6-2.6); Potassium 4.2 mmol/L (3.3-5.1); Sodium 135 mmol/L (135-145)
[2025-04-16 20:54] LABS: Glucose, Whole Blood 206 mg/dL (60-115)
[2025-04-16 20:57] LABS: ABG Refer to POC result
--- NOTE | 2025-04-16 21:42 | PM.CCN ---
Critical Care Event Note Summary Date of Service: 04/16/25 Code activated: No Narrative: This case had a high probability of a clinically significant, sudden, or life threatening deterioration of this patient's condition which required my full and direct attention, intervention and personal management. Critical Care Time (minutes): 30 Comment: The patient is a 79-year-old male with a past medical history of atrial fibrillation (on Eliquis), cardiomyopathy, congestive heart failure (LVEF 40-45% March 2025), hypertension, dyslipidemia, diabetes mellitus who presented to hospital for shortness of breath.? Patient found to be in acute hypoxic respiratory failure, began approximately 1-2 weeks ago, patient states that he visited his rug dry room attendant, who suggested on discontinuing his diuretics, to assess kidney function and heart failure.? Patient was admitted into hospital medicine for management of acute hypoxic respiratory failure secondary to heart failure received 40 mg of Lasix. Of note, patient was recently in [facility] and had to be hospitalized for 35 days for exacerbation, requiring intubation.? At the time patient was on Bumex and Lasix per patient and son report, course was complicated by VERENA, Patient requiring supplemental oxygenation, but later later during the day patient became obtunded, requiring more supplemental oxygenation, ABG 7.17/83/114/31. ?Patient is placed on BiPAP and was given additional IV Lasix.? He was transferred to ICU for hemodynamic monitoring. Acute decompensation related to 02 to retention. Hypotension due to diuresing, no evidence of acute infection Mentation back to baseline on my assessment. ?Blood gas significantly improve on BiPAP. Plan: Nocturnal BiPAP Continue diuresing Patient's son updated at bedside No evidence of sepsis, does not require lactate monitoring
[2025-04-17] VITALS (29 sets, daily range): BP systolic 89–152; BP diastolic 47–82; PULSE 68–107; RESP 14–28; TEMP 36.1–37.1; O2SAT 90–100; BMI 31.2
--- NOTE | 2025-04-17 05:15 | PC.ADMIT ---
Patient arrived to ICU from ED on Bipap 18/8 30%, currently 18/8 25%. He is sleepy but opens eyes to voice and is able to shake head yes or no and speak short sentences under bipap appropriately. Moving all extremities with weakness. Skin is intact and denies pain. Heart in a-fib with sporatic bradycardia to the 30's and 40's coming back to baseline quickly. Generalized edema, +2 pitting from waist down. Lung sounds are dim throughout. Labs/VBG improving with bipap as well as mental status. Patient retaining urine and was straight catheterized at 0200 for 1000ml. Abdomen soft, non tender with positive bowel sounds. Last bm unknown. All safety measures in place.
[2025-04-17 05:37] LABS: VBG HCO3 30 mmol/L (22-26); VBG O2 % Saturation 82.0 %
[2025-04-17 05:39] LABS: MANUAL DIFF FLAG NO
[2025-04-17 05:43] LABS: Venous Blood Gas Refer to POC result
[2025-04-17 05:52] LABS: Hematocrit 27.2 % (42.0-52.0); Hemoglobin 8.8 g/dl (14.0-18.0); Imm Gran Abs Auto 0.08 X10*3/uL (0.00-0.03); Imm Gran Pct Auto 1.3 % (0.0-0.4); Lymphocytes Absolute Auto 1.1 X10*3/uL (1.2-4.9); Mean Corpuscular HGB Conc 32.4 g/dl (31.0-36.0); Mean Corpuscular Hemoglobin 28.8 pg (27.0-33.0); Mean Corpuscular Volume 88.9 fL (80.0-98.0); NRBC Abs Auto 0.030 X10*3/uL (0.0-0.012); NRBC Pct Auto 0.5 /100WBC (0.0-0.2); Platelet Count 208 X10*3/uL (160-400); Red Blood Count 3.06 X10*6/uL (4.60-5.80); White Blood Count 6.3 X10*3/uL (4.8-10.8)
[2025-04-17 05:58] LABS: Anion Gap 13 (12-20); Blood Urea Nitrogen 17 mg/dL (9-16); Calcium 8.6 mg/dL (8.4-10.2); Carbon Dioxide 28 mmol/L (22-29); Chloride 101 mmol/L (96-108); Creatinine Clr Calc Pharmacy 54.9; Estimated Glomerular Filt Rate 54; Magnesium 1.9 mg/dL (1.6-2.6); Potassium 3.9 mmol/L (3.3-5.1); Sodium 138 mmol/L (135-145)
--- NOTE | 2025-04-17 07:00 | CA_ITS ---
Transthoracic Echocardiogram Patient (Last, First, Middle): Alireza Gabriel M Gender: Male Date of : 1945 Age: 79 Procedure Date: 04/17/2025 Procedure Type: Transthoracic Echocardiogram Location: ICU Height: 180.34 cm Weight: 101.15 kg BSA: 2.21 m2 Heart Rate: 85 bpm BP: 141 / 54 mmHg Warp Scouring Vat Tender: TO/RC Referring MD: Tj Tarango MD Symptoms: CHF Study Quality: Adequate w contrast ECG Rhythm: Atrial Fibrillation Conclusions: - Normal left ventricular cavity size. The left ventricular systolic function is low normal. The visually estimated ejection fraction is between 50-55%. - Mildly increased right ventricular cavity size. There is mildly decreased right ventricular systolic function. - The left atrium is moderately dilated. - Moderately elevated right atrial pressure. Moderate to severe pulmonary hypertension is present. - The inferior vena cava is dilated and collapses less than 50% with inspiration. - There is a large left sided pleural effusion. Findings Procedure Information Contrast agent, definity, is being given per protocol without apparent complications. Left Ventricle Normal left ventricular cavity size. The left ventricular systolic function is low normal. The visually estimated ejection fraction is between 50-55%. There is no evidence of regional wall motion abnormalities. Diastolic function is indeterminate on the basis of available data. There is moderate septal asymmetric hypertrophy. Right Ventricle Mildly increased right ventricular cavity size. There is mildly decreased right ventricular systolic function. Atria The left atrium is moderately dilated. The right atrium is mildly dilated. Aortic Valve Normal aortic valve structure and function. There is no aortic valve stenosis. There is no aortic valve regurgitation. Mitral Valve The mitral valve appears normal. There is trace mitral valve regurgitation. There is no mitral valve stenosis. Pulmonic Valve The pulmonic valve is normal. There is trace pulmonic valve regurgitation. Tricuspid Valve Normal tricuspid valve structure. There is moderate tricuspid valve regurgitation. The right ventricular systolic pressure is 63 mmHg. Moderately elevated right atrial pressure. Moderate to severe pulmonary hypertension is present. Great Vessels All visible segments of the aorta are normal in size. The visualized portions of the pulmonary artery and branches are normal. Venous The inferior vena cava is dilated and collapses less than 50% with inspiration. Pericardium/Pleural There is no evidence of pericardial effusion. There is a large left sided pleural effusion. Prior Study Comparison Changes noted compared to prior study dated: 03/14/2025. EF 50-55%, mild RV dysfunction, severe PH, pleural effusion. Measurements 2D Linear Measurements IVSd: 1.35 0.6-0.9/0.6-1.0 cm LVIDd: 5.34 3.9-5.3/4.2-5.9 cm LVIDd Index: 2.42 2.4-3.2/2.2-3.1 cm/m2 LVIDs: 3.91 2.0-3.6 cm LVPWd: 0.95 0.7-1.1 cm LA Diam: 4.10 2.7-3.8/3.0-4.0 cm LAIDs Index: 1.86 1.5-2.3 cm/m2 LV Mass: 304.51 67-162/88-224 g LV Mass Index: 137.79 43-95/49-115 g/m2 LVOT Diam: 2.60 3.0+(-)1.3 cm 2D Systolic Function EF 4C: 56.50 >55% EF 2C: 42.20 >55% EF BiP: 49.70 >55% Mitral Valve MV Pk E: 0.95 MV Decel Time: 184.00 E'Lateral: 8.23 E'Medial: 6.79 E/E' Med: 13.90 E/E' Lat: 11.50 PHT: 54.00 MVA PHT: 4.07 Decel [place]: 6.13 Aortic Valve AoV Pk Lance: 1.20 AoV Pk Grad: 6.00 LVOT LVOT Pk Lance: 0.78 LVOT Mn Lance: 0.47 LVOT VTI: 0.12 LVOT Pk Grad: 2.00 LVOT Mn Grad: 1.00 LVOT Diam: 2.60 LVOT Area: 5.31 Diastolic Function MV Pk E: 0.95 E'Medial: 6.79 E/E' Med: 13.90 E' Laterial: 8.23 E/E' Lat: 11.50 Right Ventricle TAPSE (mm): 11.00 TVS' Lance: 9.36 Tricuspid Valve TR Pk Lance: 3.45 TR Pk Grad: 48.00 RA Press: 15.00 RVSP: 63.00 Great Vessels Aorta Sinus of Valsalva: 3.85 2.0-3.5 cm Ao Asc: 3.90 2.1-3.4 cm Updated in Other Vendor System with Status of Final Marcin Lopez MD electronically signed on 04/17/2025 3:33:26 PM with status of Final
[2025-04-17 07:24] LABS: Glucose, Whole Blood 126 mg/dL (60-115)
[2025-04-17] MEDS: 0.9 % Sodium Chloride Flush 3 ML SYRINGE IVFLUSH ×3 (07:57→22:13)
[2025-04-17] MEDS: Furosemide 40 MG/4 ML VIAL IVPUSH ×2 (07:58→17:09)
--- NOTE | 2025-04-17 10:07 | PM.CCPN ---
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 Hospital course significant acute hypercapnic respiratory failure briefly requiring BiPAP support that improved with diuresis. No events overnight. Critical Care Time (minutes): 0 Physical Exam Vital Signs: Vital Signs: Last Vital Signs Temp 97.5 F 04/17/25 08:00 Pulse 94 04/17/25 09:00 Resp 18 04/17/25 09:00 BP 121/66 04/17/25 09:00 Pulse Ox 97 04/17/25 09:00 O2 Del Method Nasal Cannula 04/17/25 05:50 O2 Flow Rate 4 04/17/25 09:00 FiO2 25 04/17/25 05:00 BMI result Body Mass Index 31.2 Const: General: no acute distress, alert and awake Eyes: Sclerae: sclerae normal EOM: EOMs intact bilaterally Neck: Neck: Yes no lymphadenopathy, Yes trachea midline and Yes supple Resp: Effort & Inspection: normal respiratory effort and no respiratory distress Auscultation: crackles (Mild bilateral) Cardio: Rate: regular rate Rhythm: abnormal rhythm irregularly irregular Heart sounds: no gallops, no murmurs and no rubs GI: Palpation (GI): Soft to palpation and Other GI palpation findings present ( Nontender) Auscultation: normal bowel sounds Extrem: General: No clubbing, No cyanosis and Yes edema (Trace bilateral) Objective Data Labs 04/17/25 05:26 04/17/25 05:26 Labs: Laboratory Results - last 24 hr 04/16/25 04/16/25 04/16/25 13:08 13:09 13:14 WBC 7.7 RBC 3.18 L Hgb 8.9 L Hct 28.2 L MCV 88.7 MCH 28.0 MCHC 31.6 RDW 23.1 H Plt Count 222 MPV 10.1 Immature Gran % (Auto) 1.2 H Neut % (Auto) 82.1 H Lymph % (Auto) 9.7 L [place] % (Auto) 6.1 Eos % (Auto) 0.4 Baso % (Auto) 0.5 Lymph # (Auto) 0.8 L [place] # (Auto) 0.5 Eos # (Auto) 0.0 Baso # (Auto) 0.0 Abs Immat Gran (auto) 0.09 H Absolute Neuts (auto) 6.4 Absolute Nucleated RBC 0.000 Nucleated RBC % (auto) 0.0 O2 Saturation ABG pH at Pt Temp ABG pCO2 at Pt Temp ABG pO2 at Pt Temp ABG HCO3 ABG Base Excess (Actual) VBG pH 7.29 L VBG pCO2 65 VBG pO2 60 VBG HCO3 32 H VBG O2 Saturation 81.0 VBG Base Excess 4.4 Sodium 135 Potassium 3.7 Chloride 99 Carbon Dioxide 28 Anion Gap 12 BUN 18 H Creatinine 1.26 Estim Creat Clear Calc 55.3 Estimated GFR 55 POC Glucose Random Glucose 257 H Calcium 8.5 Phosphorus Magnesium 2.0 Total Bilirubin 0.7 AST 19 ALT < 6 Alkaline Phosphatase 100 Troponin I High Sens 6.4 NT-Pro-B Natriuret Pep 2960.2 H Total Protein 5.9 L Albumin 3.6 Triglycerides 71 Cholesterol 78 LDL Cholesterol, Calc 33 HDL Cholesterol 31 L TSH 2.88 04/16/25 04/16/25 04/16/25 16:53 17:10 19:25 WBC RBC Hgb Hct MCV MCH MCHC RDW Plt Count MPV Immature Gran % (Auto) Neut % (Auto) Lymph % (Auto) [place] % (Auto) Eos % (Auto) Baso % (Auto) Lymph # (Auto) [place] # (Auto) Eos # (Auto) Baso # (Auto) Abs Immat Gran (auto) Absolute Neuts (auto) Absolute Nucleated RBC Nucleated RBC % (auto) O2 Saturation 99.0 99.0 ABG pH at Pt Temp 7.17 L* 7.37 ABG pCO2 at Pt Temp 83 H* 53 H ABG pO2 at Pt Temp 114 H 103 ABG HCO3 31 H 31 H ABG Base Excess (Actual) 1.2 5.4 VBG pH VBG pCO2 VBG pO2 VBG HCO3 VBG O2 Saturation VBG Base Excess Sodium Potassium Chloride Carbon Dioxide Anion Gap BUN Creatinine Estim Creat Clear Calc Estimated GFR POC Glucose 278 H Random Glucose Calcium Phosphorus Magnesium Total Bilirubin AST ALT Alkaline Phosphatase Troponin I High Sens NT-Pro-B Natriuret Pep Total Protein Albumin Triglycerides Cholesterol LDL Cholesterol, Calc HDL Cholesterol TSH 04/16/25 04/16/25 04/16/25 19:48 19:55 20:51 WBC RBC Hgb Hct MCV MCH MCHC RDW Plt Count MPV Immature Gran % (Auto) Neut % (Auto) Lymph % (Auto) [place] % (Auto) Eos % (Auto) Baso % (Auto) Lymph # (Auto) [place] # (Auto) Eos # (Auto) Baso # (Auto) Abs Immat Gran (auto) Absolute Neuts (auto) Absolute Nucleated RBC Nucleated RBC % (auto) O2 Saturation ABG pH at Pt Temp ABG pCO2 at Pt Temp ABG pO2 at Pt Temp ABG HCO3 ABG Base Excess (Actual) VBG pH 7.35 VBG pCO2 58 VBG pO2 42 VBG HCO3 33 H VBG O2 Saturation 62.0 VBG Base Excess 6.4 Sodium 135 Potassium 4.2 Chloride 100 Carbon Dioxide 30 H Anion Gap 9 L BUN 17 H Creatinine 1.38 Estim Creat Clear Calc 50.5 Estimated GFR 49 POC Glucose 206 H Random Glucose 272 H Calcium 8.6 Phosphorus 4.6 H Magnesium 1.8 Total Bilirubin AST ALT Alkaline Phosphatase Troponin I High Sens NT-Pro-B Natriuret Pep Total Protein Albumin Triglycerides Cholesterol LDL Cholesterol, Calc HDL Cholesterol TSH 04/17/25 04/17/25 04/17/25 05:26 05:34 07:20 WBC 6.3 RBC 3.06 L Hgb 8.8 L Hct 27.2 L MCV 88.9 MCH 28.8 MCHC 32.4 RDW 22.8 H Plt Count 208 MPV 10.8 Immature Gran % (Auto) 1.3 H Neut % (Auto) 70.9 Lymph % (Auto) 16.8 L [place] % (Auto) 9.4 Eos % (Auto) 1.1 Baso % (Auto) 0.5 Lymph # (Auto) 1.1 L [place] # (Auto) 0.6 Eos # (Auto) 0.1 Baso # (Auto) 0.0 Abs Immat Gran (auto) 0.08 H Absolute Neuts (auto) 4.4 Absolute Nucleated RBC 0.030 H Nucleated RBC % (auto) 0.5 H O2 Saturation ABG pH at Pt Temp ABG pCO2 at Pt Temp ABG pO2 at Pt Temp ABG HCO3 ABG Base Excess (Actual) VBG pH 7.55 H VBG pCO2 34 VBG pO2 44 VBG HCO3 30 H VBG O2 Saturation 82.0 VBG Base Excess 8.3 Sodium 138 Potassium 3.9 Chloride 101 Carbon Dioxide 28 Anion Gap 13 BUN 17 H Creatinine 1.27 Estim Creat Clear Calc 54.9 Estimated GFR 54 POC Glucose 126 H Random Glucose 106 Calcium 8.6 Phosphorus 4.2 Magnesium 1.9 Total Bilirubin AST ALT Alkaline Phosphatase Troponin I High Sens NT-Pro-B Natriuret Pep Total Protein Albumin Triglycerides Cholesterol LDL Cholesterol, Calc HDL Cholesterol TSH Progress Note: A&P Assessment and plan (1) Acute exacerbation of congestive heart failure: Status: Acute (2) Persistent atrial fibrillation: Status: Acute (3) Type 2 diabetes mellitus without complication, with no history of insulin use: Status: Acute (4) Acute respiratory failure with hypercapnia: Status: Acute Plan Assessment: 85-year-old gentleman with underlying systolic heart failure and AFib admitted with dyspnea secondary to acute on chronic systolic heart failure further complicated by acute hypercapnia briefly requiring BiPAP support. Plan: Neuro: No acute issues. Cardiac: Acute on chronic systolic congestive heart failure improving with diuresis. Underlying AFib on anticoagulation. Pulmonary: Acute respiratory failure with hypercapnia secondary to iatrogenic hypoxia briefly requiring BiPAP support, now titrated off. Continue to titrate off supplemental oxygen as tolerated. Renal: No acute issues. Endo: No acute issues. GI: No acute issues. ID: No acute issues Heme/Onc: No acute issues. Psych: No acute issues. Miscellaneous: No acute issues. Prophylaxis: Eliquis Diet: Regular Quality Stroke Does the patient have a stroke diagnosis?: No VTE Prior VTE?: No VTE Risk Level:: Medical - moderate - high VTE Device Contraindication: Treatment Not Indicated VTE Drug Contraindication: N/A - Med Ordered
--- NOTE | 2025-04-17 11:45 | MHC.CM.PN ---
Met with pt who was having an echo in ICU: pt lives alone, has support from family (dtr) and uses a cane. He states he is active with [facility] and would like to continue. HCP on file and verified. PCP John. IMM in chart. D/C plan: return to home w/existing services. Family to transport
[2025-04-17 12:00] LABS: ABG HCO3 32 mmol/L (22-26); ABG O2 % Saturation 94.0 %
[2025-04-17 12:08] LABS: Glucose, Whole Blood 262 mg/dL (60-115)
--- NOTE | 2025-04-17 13:18 | PM.CNCAR ---
History of Present Illness History of Present Illness Date of Service: 04/17/25 Requesting physician: Patric Holliday Chief complaint: Shortness of breath Narrative: 79-year-old gentleman presenting with shortness of breath and congestive heart failure. His chest x-ray showed significant effusions and pulmonary edema. He apparently was confused and was noted to be hypercapnic and required BiPAP. He has been in the ICU since yesterday and was currently on BiPAP. He said his breathing is feeling better at this point. He is denying any chest discomfort. He is on IV diuretics at this point. 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 Surgical History Surgical History Status post cardiac catheterization Hx of cardiac catheterization History of hydrocelectomy Hx of transurethral resection of prostate H/O colonoscopy Deviated septum History of left knee replacement Social History Social History Household Members: None Housing: House Are you a primary insurance healthcare representative to a significant other at home: No Do you presently have visiting nurse or other home services: Yes (patient has visiting nurse and physical therapy once a week) Patient Tobacco Use Status: Never used Tobacco e-Cigarette/Vaping Use: Never Used Second Hand Smoke Exposure: Yes Advance Directives Date on File: 12/28/23 service: No Current occupational status: retired Cognitive needs: No Hearing needs: No Vision needs: Yes Meds Allergies Allergy/AdvReac Type Severity Reaction Status Date / Time cephalexin (Keflex) Allergy Intermediate hives Verified 04/16/25 12:03 levofloxacin Allergy Intermediate Hives Verified 04/16/25 12:03 cetirizine (From Zyrtec) AdvReac Intermediate Fatigue Verified 04/16/25 12:03 Active Medications: Current Medications Acetaminophen (Acetaminophen 325 Mg Tablet) 650 mg PO Q6H PRN PRN Reason: Pain, Mild 1-3,fever,headache Apixaban (Apixaban 2.5 Mg Tablet) 2.5 mg PO BID [facility] Last Admin: 04/17/25 07:58 Dose: 2.5 mg Aspirin (Aspirin 81 Mg Tab.Chew) 81 mg PO DAILY [facility] Last Admin: 04/17/25 07:58 Dose: 81 mg Calcium Carbonate (Calcium Carbonate 750 Mg Tab.Chew) 750 mg PO Q4H PRN PRN Reason: Heartburn Dextrose (Dextrose 50 % 25 Gm/50 Ml Syringe) 25 gm IVPUSH Q15M PRN; Protocol PRN Reason: per Hypoglycemia Standing Ord. Furosemide (Furosemide 40 Mg/4 Ml Vial) 40 mg IVPUSH BID@0900,1800 [facility]; Protocol Last Admin: 04/17/25 07:58 Dose: 40 mg Glucose (Glucose Gel 15 Gm Gel..Gram.) 15 gm PO Q15M PRN; Protocol PRN Reason: per Hypoglycemia Standing Ord. Insulin Human Lispro (Insulin Lispro 100 Unit/Ml 3 Ml Vial) 0 unit SUBCUT QIDACHS [facility]; Protocol Last Admin: 04/17/25 12:07 Dose: 6 unit Magnesium Hydroxide (Milk Of Magnesia 30 Ml Oral.Susp) 30 ml PO DAILY PRN PRN Reason: Constipation Melatonin (Melatonin 3 Mg Tablet) 6 mg PO BEDTIME PRN PRN Reason: Insomnia Sodium Chloride (0.9 % Sodium Chloride Flush 3 Ml Syringe) 3 ml IVFLUSH QSHIFT [facility] Last Admin: 04/17/25 07:57 Dose: 3 ml Tamsulosin HCl (Tamsulosin Hcl 0.4 Mg Capsule) 0.4 mg PO DAILY [facility] Last Admin: 04/17/25 07:57 Dose: 0.4 mg Home Medications ?Medication ?Instructions ?Recorded ?Confirmed ?Last Taken ?Type acetaminophen 500 mg tablet 500 mg PO Q6H PRN Fever Or Pain 03/13/25 04/16/25 Unknown History aspirin 81 mg tablet 81 mg PO DAILY 03/13/25 04/16/25 04/15/25 History Physical Exam Vital Signs: Vital Signs: Last Vital Signs Temp 98.2 F 04/17/25 12:00 Pulse 103 H 04/17/25 12:00 Resp 28 H 04/17/25 12:04 BP 135/62 04/17/25 12:00 Pulse Ox 91 L 04/17/25 12:00 O2 Del Method BiPAP 04/17/25 12:00 O2 Flow Rate 4 04/17/25 11:00 FiO2 25 04/17/25 12:00 BMI result Body Mass Index 31.2 GENERAL APPEARANCE: On Bipap. NECK: no carotid bruit, + jugular venous distention. SKIN: no suspicious lesions, warm and dry. HEART: no murmurs, irregular rate and rhythm. LUNGS: clear to auscultation anteriorly. ABDOMEN: soft, nontender. EXTREMITIES: no edema. PERIPHERAL PULSES: equal. NEUROLOGIC: No gross deficits, AAO X 3 Objective Labs and Meds 04/17/25 05:26 04/17/25 18:39 Lab results: Laboratory Results - last 24 hr 04/16/25 04/16/25 04/16/25 13:08 13:09 16:53 WBC 7.7 RBC 3.18 L Hgb 8.9 L Hct 28.2 L MCV 88.7 MCH 28.0 MCHC 31.6 RDW 23.1 H Plt Count 222 MPV 10.1 Immature Gran % (Auto) 1.2 H Neut % (Auto) 82.1 H Lymph % (Auto) 9.7 L [place] % (Auto) 6.1 Eos % (Auto) 0.4 Baso % (Auto) 0.5 Lymph # (Auto) 0.8 L [place] # (Auto) 0.5 Eos # (Auto) 0.0 Baso # (Auto) 0.0 Abs Immat Gran (auto) 0.09 H Absolute Neuts (auto) 6.4 Absolute Nucleated RBC 0.000 Nucleated RBC % (auto) 0.0 O2 Saturation 99.0 ABG pH at Pt Temp 7.17 L* ABG pCO2 at Pt Temp 83 H* ABG pO2 at Pt Temp 114 H ABG HCO3 31 H ABG Base Excess (Actual) 1.2 VBG pH VBG pCO2 VBG pO2 VBG HCO3 VBG O2 Saturation VBG Base Excess Sodium 135 Potassium 3.7 Chloride 99 Carbon Dioxide 28 Anion Gap 12 BUN 18 H Creatinine 1.26 Estim Creat Clear Calc 55.3 Estimated GFR 55 POC Glucose Random Glucose 257 H Calcium 8.5 Phosphorus Magnesium 2.0 Total Bilirubin 0.7 AST 19 ALT < 6 Alkaline Phosphatase 100 Troponin I High Sens 6.4 NT-Pro-B Natriuret Pep 2960.2 H Total Protein 5.9 L Albumin 3.6 Triglycerides 71 Cholesterol 78 LDL Cholesterol, Calc 33 HDL Cholesterol 31 L TSH 2.88 04/16/25 04/16/25 04/16/25 17:10 19:25 19:48 WBC RBC Hgb Hct MCV MCH MCHC RDW Plt Count MPV Immature Gran % (Auto) Neut % (Auto) Lymph % (Auto) [place] % (Auto) Eos % (Auto) Baso % (Auto) Lymph # (Auto) [place] # (Auto) Eos # (Auto) Baso # (Auto) Abs Immat Gran (auto) Absolute Neuts (auto) Absolute Nucleated RBC Nucleated RBC % (auto) O2 Saturation 99.0 ABG pH at Pt Temp 7.37 ABG pCO2 at Pt Temp 53 H ABG pO2 at Pt Temp 103 ABG HCO3 31 H ABG Base Excess (Actual) 5.4 VBG pH VBG pCO2 VBG pO2 VBG HCO3 VBG O2 Saturation VBG Base Excess Sodium 135 Potassium 4.2 Chloride 100 Carbon Dioxide 30 H Anion Gap 9 L BUN 17 H Creatinine 1.38 Estim Creat Clear Calc 50.5 Estimated GFR 49 POC Glucose 278 H Random Glucose 272 H Calcium 8.6 Phosphorus 4.6 H Magnesium 1.8 Total Bilirubin AST ALT Alkaline Phosphatase Troponin I High Sens NT-Pro-B Natriuret Pep Total Protein Albumin Triglycerides Cholesterol LDL Cholesterol, Calc HDL Cholesterol TSH 04/16/25 04/16/25 04/17/25 19:55 20:51 05:26 WBC 6.3 RBC 3.06 L Hgb 8.8 L Hct 27.2 L MCV 88.9 MCH 28.8 MCHC 32.4 RDW 22.8 H Plt Count 208 MPV 10.8 Immature Gran % (Auto) 1.3 H Neut % (Auto) 70.9 Lymph % (Auto) 16.8 L [place] % (Auto) 9.4 Eos % (Auto) 1.1 Baso % (Auto) 0.5 Lymph # (Auto) 1.1 L [place] # (Auto) 0.6 Eos # (Auto) 0.1 Baso # (Auto) 0.0 Abs Immat Gran (auto) 0.08 H Absolute Neuts (auto) 4.4 Absolute Nucleated RBC 0.030 H Nucleated RBC % (auto) 0.5 H O2 Saturation ABG pH at Pt Temp ABG pCO2 at Pt Temp ABG pO2 at Pt Temp ABG HCO3 ABG Base Excess (Actual) VBG pH 7.35 VBG pCO2 58 VBG pO2 42 VBG HCO3 33 H VBG O2 Saturation 62.0 VBG Base Excess 6.4 Sodium 138 Potassium 3.9 Chloride 101 Carbon Dioxide 28 Anion Gap 13 BUN 17 H Creatinine 1.27 Estim Creat Clear Calc 54.9 Estimated GFR 54 POC Glucose 206 H Random Glucose 106 Calcium 8.6 Phosphorus 4.2 Magnesium 1.9 Total Bilirubin AST ALT Alkaline Phosphatase Troponin I High Sens NT-Pro-B Natriuret Pep Total Protein Albumin Triglycerides Cholesterol LDL Cholesterol, Calc HDL Cholesterol TSH 04/17/25 04/17/25 04/17/25 05:34 07:20 11:57 WBC RBC Hgb Hct MCV MCH MCHC RDW Plt Count MPV Immature Gran % (Auto) Neut % (Auto) Lymph % (Auto) [place] % (Auto) Eos % (Auto) Baso % (Auto) Lymph # (Auto) [place] # (Auto) Eos # (Auto) Baso # (Auto) Abs Immat Gran (auto) Absolute Neuts (auto) Absolute Nucleated RBC Nucleated RBC % (auto) O2 Saturation 94.0 ABG pH at Pt Temp 7.28 L ABG pCO2 at Pt Temp 68 H* ABG pO2 at Pt Temp 76 L ABG HCO3 32 H ABG Base Excess (Actual) 4.6 VBG pH 7.55 H VBG pCO2 34 VBG pO2 44 VBG HCO3 30 H VBG O2 Saturation 82.0 VBG Base Excess 8.3 Sodium Potassium Chloride Carbon Dioxide Anion Gap BUN Creatinine Estim Creat Clear Calc Estimated GFR POC Glucose 126 H Random Glucose Calcium Phosphorus Magnesium Total Bilirubin AST ALT Alkaline Phosphatase Troponin I High Sens NT-Pro-B Natriuret Pep Total Protein Albumin Triglycerides Cholesterol LDL Cholesterol, Calc HDL Cholesterol TSH 04/17/25 11:59 WBC RBC Hgb Hct MCV MCH MCHC RDW Plt Count MPV Immature Gran % (Auto) Neut % (Auto) Lymph % (Auto) [place] % (Auto) Eos % (Auto) Baso % (Auto) Lymph # (Auto) [place] # (Auto) Eos # (Auto) Baso # (Auto) Abs Immat Gran (auto) Absolute Neuts (auto) Absolute Nucleated RBC Nucleated RBC % (auto) O2 Saturation ABG pH at Pt Temp ABG pCO2 at Pt Temp ABG pO2 at Pt Temp ABG HCO3 ABG Base Excess (Actual) VBG pH VBG pCO2 VBG pO2 VBG HCO3 VBG O2 Saturation VBG Base Excess Sodium Potassium Chloride Carbon Dioxide Anion Gap BUN Creatinine Estim Creat Clear Calc Estimated GFR POC Glucose 262 H Random Glucose Calcium Phosphorus Magnesium Total Bilirubin AST ALT Alkaline Phosphatase Troponin I High Sens NT-Pro-B Natriuret Pep Total Protein Albumin Triglycerides Cholesterol LDL Cholesterol, Calc HDL Cholesterol TSH Imaging Radiologist's impression: Impressions Chest X-Ray 04/16/25 13:31 IMPRESSION: Pulmonary edema and bilateral pleural effusions with questionable cardiomegaly versus pericardial effusion. Worsened since prior exam. Electronically signed by: Jesus Clark MD 04/16/2025 01:44 PM EDT Assessment and Plan (1) Essential hypertension: Status: Acute (2) Congestive heart failure: Status: Acute Plan 79 male with h/o mild CMP and persistent Afib presenting with CHF. He has hypercapnic respiratory failure. Clinically overloaded. IV diuretics. BiPAP support. c/w Apixaban. Procedures Date of Service Date of Service: 04/17/25
[2025-04-17 13:20] LABS: ABG HCO3 33 mmol/L (22-26); ABG O2 % Saturation 96.0 %
--- NOTE | 2025-04-17 13:58 | PC.NURSE ---
Pt had episode of desaturation to low 80s on [place] nc with complaints of SOB and dyspnea at rest. Titrated up on 02 with no affect. RT at bedside, Dr Holliday notified. Pt obtunded and placed back on BiPAP and ABG sent. ABG had negative results, redrawn an hour later showing improvement. Pt placed back on oximask and remains obtunded. Pt had episode of urinary retention overnight with need to straigt cath. Bladder scanned post void this shift with minimal retention. Gave lasix with minimal affect. Continuing to monitor bladder retention with bladder scanning. Pt to have second dose of lasix later this shift.
[2025-04-17 14:44] LABS: ABG Refer to POC result
[2025-04-17 14:44] LABS: ABG Refer to POC result
[2025-04-17 16:50] LABS: Glucose, Whole Blood 221 mg/dL (60-115)
[2025-04-17 19:05] LABS: Anion Gap 14 (12-20); Blood Urea Nitrogen 19 mg/dL (9-16); Calcium 8.4 mg/dL (8.4-10.2); Carbon Dioxide 27 mmol/L (22-29); Chloride 101 mmol/L (96-108); Creatinine Clr Calc Pharmacy 53.2; Estimated Glomerular Filt Rate 52; Potassium 3.9 mmol/L (3.3-5.1); Sodium 138 mmol/L (135-145)
[2025-04-17 20:11] LABS: Glucose, Whole Blood 216 mg/dL (60-115)
[2025-04-18] VITALS (7 sets, daily range): BP systolic 107–149; BP diastolic 52–84; PULSE 64–96; RESP 18–22; TEMP 36.6–36.9; O2SAT 96–100; BMI 31.3
[2025-04-18 07:06] LABS: MANUAL DIFF FLAG NO
[2025-04-18 07:11] LABS: Hematocrit 24.3 % (42.0-52.0); Hemoglobin 7.7 g/dl (14.0-18.0); Imm Gran Abs Auto 0.06 X10*3/uL (0.00-0.03); Imm Gran Pct Auto 1.1 % (0.0-0.4); Lymphocytes Absolute Auto 1.0 X10*3/uL (1.2-4.9); Mean Corpuscular HGB Conc 31.7 g/dl (31.0-36.0); Mean Corpuscular Hemoglobin 28.2 pg (27.0-33.0); Mean Corpuscular Volume 89.0 fL (80.0-98.0); NRBC Abs Auto 0.000 X10*3/uL (0.0-0.012); NRBC Pct Auto 0.0 /100WBC (0.0-0.2); Platelet Count 212 X10*3/uL (160-400); Red Blood Count 2.73 X10*6/uL (4.60-5.80); White Blood Count 5.7 X10*3/uL (4.8-10.8)
[2025-04-18 07:11] LABS: VBG HCO3 35 mmol/L (22-26); VBG O2 % Saturation 99.0 %
[2025-04-18 07:12] LABS: Venous Blood Gas Refer to POC result
[2025-04-18 07:32] LABS: Albumin Level 3.0 g/dL (3.5-5.0); Anion Gap 10 (12-20); Blood Urea Nitrogen 21 mg/dL (9-16); Calcium 8.3 mg/dL (8.4-10.2); Carbon Dioxide 29 mmol/L (22-29); Chloride 102 mmol/L (96-108); Creatinine Clr Calc Pharmacy 48.8; Estimated Glomerular Filt Rate 47; Magnesium 2.0 mg/dL (1.6-2.6); Potassium 3.4 mmol/L (3.3-5.1); Sodium 138 mmol/L (135-145)
[2025-04-18 07:39] LABS: Glucose, Whole Blood 89 mg/dL (60-115)
[2025-04-18] MEDS: Furosemide 40 MG/4 ML VIAL IVPUSH ×2 (08:37→18:17)
[2025-04-18] MEDS: 0.9 % Sodium Chloride Flush 3 ML SYRINGE IVFLUSH ×3 (08:37→20:42)
--- NOTE | 2025-04-18 10:38 | MHC.CM.PN ---
Per ROUNDS discussion,Patient is not yet medically cleared for dc/looking like dc will be into next week. Patient may benefit from a PT Eval to assist with disposition. CM will follow.
--- NOTE | 2025-04-18 12:04 | P.PNCA_ITS ---
Subjective Subjective Date of Service: 04/18/25 Interval history: Seen and examined at bedside. On supplemental oxygen. He is feeling somewhat better. Physical Exam Vital Signs: Last Vital Signs Temp 98.5 F 04/18/25 07:47 Pulse 96 04/18/25 07:47 Resp 20 04/18/25 07:47 BP 121/77 04/18/25 07:47 Pulse Ox 97 04/18/25 07:47 O2 Del Method CPAP 04/18/25 07:47 O2 Flow Rate 2 04/17/25 18:56 FiO2 25 04/17/25 16:00 BMI result Body Mass Index 31.3 GENERAL APPEARANCE: On nasal cannula. NECK: no carotid bruit, + jugular venous distention. SKIN: no suspicious lesions, warm and dry. HEART: no murmurs, irregular rate and rhythm. LUNGS: Diminished breath sounds at bases. ABDOMEN: soft, nontender. EXTREMITIES: no edema. PERIPHERAL PULSES: equal. NEUROLOGIC: No gross deficits, AAO X 3 Objective Labs and Meds 04/18/25 07:00 04/18/25 07:00 Lab results: Laboratory Results - last 24 hr 04/17/25 04/17/25 04/17/25 11:59 13:16 16:47 WBC RBC Hgb Hct MCV MCH MCHC RDW Plt Count MPV Immature Gran % (Auto) Neut % (Auto) Lymph % (Auto) [place] % (Auto) Eos % (Auto) Baso % (Auto) Lymph # (Auto) [place] # (Auto) Eos # (Auto) Baso # (Auto) Abs Immat Gran (auto) Absolute Neuts (auto) Absolute Nucleated RBC Nucleated RBC % (auto) Hold Purple Top O2 Saturation 96.0 ABG pH at Pt Temp 7.39 ABG pCO2 at Pt Temp 54 H ABG pO2 at Pt Temp 75 L ABG HCO3 33 H ABG Base Excess (Actual) 7.3 VBG pH VBG pCO2 VBG pO2 VBG HCO3 VBG O2 Saturation VBG Base Excess Sodium Potassium Chloride Carbon Dioxide Anion Gap BUN Creatinine Estim Creat Clear Calc Estimated GFR POC Glucose 262 H 221 H Random Glucose Calcium Phosphorus Magnesium Albumin 04/17/25 04/17/25 04/18/25 18:39 20:08 07:00 WBC 5.7 RBC 2.73 L Hgb 7.7 L Hct 24.3 L MCV 89.0 MCH 28.2 MCHC 31.7 RDW 23.8 H Plt Count 212 MPV 11.0 Immature Gran % (Auto) 1.1 H Neut % (Auto) 70.7 Lymph % (Auto) 17.8 L [place] % (Auto) 9.5 Eos % (Auto) 0.5 Baso % (Auto) 0.4 Lymph # (Auto) 1.0 L [place] # (Auto) 0.5 Eos # (Auto) 0.0 Baso # (Auto) 0.0 Abs Immat Gran (auto) 0.06 H Absolute Neuts (auto) 4.0 Absolute Nucleated RBC 0.000 Nucleated RBC % (auto) 0.0 Hold Purple Top SEE NOTE O2 Saturation ABG pH at Pt Temp ABG pCO2 at Pt Temp ABG pO2 at Pt Temp ABG HCO3 ABG Base Excess (Actual) VBG pH VBG pCO2 VBG pO2 VBG HCO3 VBG O2 Saturation VBG Base Excess Sodium 138 138 Potassium 3.9 3.4 Chloride 101 102 Carbon Dioxide 27 29 Anion Gap 14 10 L BUN 19 H 21 H Creatinine 1.32 1.44 H Estim Creat Clear Calc 53.2 48.8 Estimated GFR 52 47 POC Glucose 216 H Random Glucose 235 H 100 Calcium 8.4 8.3 L Phosphorus 4.0 Magnesium 2.0 Albumin 3.0 L 04/18/25 04/18/25 07:08 07:09 WBC RBC Hgb Hct MCV MCH MCHC RDW Plt Count MPV Immature Gran % (Auto) Neut % (Auto) Lymph % (Auto) [place] % (Auto) Eos % (Auto) Baso % (Auto) Lymph # (Auto) [place] # (Auto) Eos # (Auto) Baso # (Auto) Abs Immat Gran (auto) Absolute Neuts (auto) Absolute Nucleated RBC Nucleated RBC % (auto) Hold Purple Top O2 Saturation ABG pH at Pt Temp ABG pCO2 at Pt Temp ABG pO2 at Pt Temp ABG HCO3 ABG Base Excess (Actual) VBG pH 7.42 VBG pCO2 55 VBG pO2 80 VBG HCO3 35 H VBG O2 Saturation 99.0 VBG Base Excess 10.1 Sodium Potassium Chloride Carbon Dioxide Anion Gap BUN Creatinine Estim Creat Clear Calc Estimated GFR POC Glucose 89 Random Glucose Calcium Phosphorus Magnesium Albumin Progress Note: A&P Assessment and plan (1) Cardiomyopathy: Status: Acute (2) Essential hypertension: Status: Acute (3) Congestive heart failure: Status: Acute (4) Persistent atrial fibrillation: Status: Acute Plan Pleasant 79 year gentleman who is presenting for shortness of breath and congestive heart failure. He has known history of persistent atrial fibrillation, chronic kidney disease and mild cardiomyopathy from echocardiography done in the past. Repeat echocardiography is showing EF 50 55% with basal to mid inferior wall hypokinesis. He does not have any anginal symptoms. Clinically appears to be volume overloaded and had bilateral pleural effusions along with pulmonary edema. With BiPAP support he has improved significantly. He was given BiPAP because he was hypercapnic which can happen in congestive heart failure patient's sometimes too. He has baseline pCO2 is elevated in 50s and he has some level of retention at baseline. Continue with IV diuretics. Heart rates are well controlled currently and we will continue same medications for now. I have explained to the patient and his son that there is some wall motion abnormality on echocardiography but he does not have any ischemic symptoms and this does not explain heart failure presentation. We will do further testing as outpatient as things improve. Thank you for allowing me to participate in the care of your patient. Please feel free to contact me if you have any questions. Time Spent With Patient Time: Total time managing care of this patient today ____ minutes. Progress Note: Quality Stroke Does the patient have a stroke diagnosis?: No Procedures Date of Service Date of Service: 04/18/25
[2025-04-18 12:05] LABS: Glucose, Whole Blood 213 mg/dL (60-115)
--- NOTE | 2025-04-18 15:09 | HO.PM.IMPN ---
Subjective Subjective Date of Service: 04/18/25 Interval History: Patient seen and examined at bedside this morning, patient was receiving downgraded from the ICU due to acute hypoxic respiratory failure requiring BiPAP. patient states that his breathing has improved, at this time on supplemental oxygen saturating 96%. At this time patient with negative balance TTE showing EF of 50-55%, mild RV dysfunction, severe pulmonary hypertension and . pleural effusion. Seen by cardiology who suggested on continuing IV diuretics Physical Exam Exam: Exam: General: AxOx3, on supplemental oxygen Head: AT/NC ENT: Moist mucous membranes Neck: supple, JVD CVS; irregular RR, S1 S2 normal Lungs: Decreased bilateral breath sounds Abd: Soft non tender, non distended Ext: SCDs in place MSK: moving all 4 limbs Skin: Sacral edema Psych: Cooperative with exam Neurology: no focal deficit Vital Signs: Vital Signs: Last Vital Signs Temp 98.0 F 04/18/25 12:00 Pulse 95 04/18/25 12:00 Resp 18 04/18/25 12:00 BP 108/53 L 04/18/25 12:00 Pulse Ox 96 04/18/25 12:00 O2 Del Method Nasal Cannula 04/18/25 12:00 O2 Flow Rate 2 04/18/25 12:00 FiO2 25 04/17/25 16:00 BMI result Body Mass Index 31.3 Objective Data Active Medications Acetaminophen (Acetaminophen 325 Mg Tablet) 650 mg PO Q6H PRN PRN Reason: Pain, Mild 1-3,fever,headache Apixaban (Apixaban 2.5 Mg Tablet) 2.5 mg PO BID [facility] Last Admin: 04/18/25 10:50 Dose: 2.5 mg Documented By: EUFEMIA Aspirin (Aspirin 81 Mg Tab.Chew) 81 mg PO DAILY [facility] Last Admin: 04/18/25 10:50 Dose: 81 mg Documented By: EUFEMIA Calcium Carbonate (Calcium Carbonate 750 Mg Tab.Chew) 750 mg PO Q4H PRN PRN Reason: Heartburn Dextrose (Dextrose 50 % 25 Gm/50 Ml Syringe) 25 gm IVPUSH Q15M PRN; Protocol PRN Reason: per Hypoglycemia Standing Ord. Furosemide (Furosemide 40 Mg/4 Ml Vial) 40 mg IVPUSH BID@0900,1800 [facility]; Protocol Last Admin: 04/18/25 08:37 Dose: 40 mg Documented By: EUFEMIA Glucose (Glucose Gel 15 Gm Gel..Gram.) 15 gm PO Q15M PRN; Protocol PRN Reason: per Hypoglycemia Standing Ord. Insulin Human Lispro (Insulin Lispro 100 Unit/Ml 3 Ml Vial) 0 unit SUBCUT QIDACHS [facility]; Protocol Last Admin: 04/18/25 13:36 Dose: 4 unit Documented By: EUFEMIA Magnesium Hydroxide (Milk Of Magnesia 30 Ml Oral.Susp) 30 ml PO DAILY PRN PRN Reason: Constipation Melatonin (Melatonin 3 Mg Tablet) 6 mg PO BEDTIME PRN PRN Reason: Insomnia Sodium Chloride (0.9 % Sodium Chloride Flush 3 Ml Syringe) 3 ml IVFLUSH QSHIFT [facility] Last Admin: 04/18/25 08:37 Dose: 3 ml Documented By: EUFEMIA Tamsulosin HCl (Tamsulosin Hcl 0.4 Mg Capsule) 0.4 mg PO DAILY [facility] Last Admin: 04/18/25 10:49 Dose: 0.4 mg Documented By: EUFEMIA Labs 04/18/25 07:00 04/18/25 07:00 Labs: Laboratory Results - last 24 hr 04/17/25 04/17/25 04/17/25 16:47 18:39 20:08 MCV MCH MCHC RDW Plt Count MPV Immature Gran % (Auto) Neut % (Auto) Lymph % (Auto) [place] % (Auto) Eos % (Auto) Baso % (Auto) Lymph # (Auto) [place] # (Auto) Eos # (Auto) Baso # (Auto) Abs Immat Gran (auto) Absolute Neuts (auto) Absolute Nucleated RBC Nucleated RBC % (auto) Hold Purple Top SEE NOTE VBG pH VBG pCO2 VBG pO2 VBG HCO3 VBG O2 Saturation VBG Base Excess Anion Gap 14 Estim Creat Clear Calc 53.2 Estimated GFR 52 POC Glucose 221 H 216 H Random Glucose 235 H Calcium 8.4 Phosphorus Magnesium Albumin 04/18/25 04/18/25 04/18/25 07:00 07:08 07:09 MCV 89.0 MCH 28.2 MCHC 31.7 RDW 23.8 H Plt Count 212 MPV 11.0 Immature Gran % (Auto) 1.1 H Neut % (Auto) 70.7 Lymph % (Auto) 17.8 L [place] % (Auto) 9.5 Eos % (Auto) 0.5 Baso % (Auto) 0.4 Lymph # (Auto) 1.0 L [place] # (Auto) 0.5 Eos # (Auto) 0.0 Baso # (Auto) 0.0 Abs Immat Gran (auto) 0.06 H Absolute Neuts (auto) 4.0 Absolute Nucleated RBC 0.000 Nucleated RBC % (auto) 0.0 Hold Purple Top VBG pH 7.42 VBG pCO2 55 VBG pO2 80 VBG HCO3 35 H VBG O2 Saturation 99.0 VBG Base Excess 10.1 Anion Gap 10 L Estim Creat Clear Calc 48.8 Estimated GFR 47 POC Glucose 89 Random Glucose 100 Calcium 8.3 L Phosphorus 4.0 Magnesium 2.0 Albumin 3.0 L 04/18/25 11:58 MCV MCH MCHC RDW Plt Count MPV Immature Gran % (Auto) Neut % (Auto) Lymph % (Auto) [place] % (Auto) Eos % (Auto) Baso % (Auto) Lymph # (Auto) [place] # (Auto) Eos # (Auto) Baso # (Auto) Abs Immat Gran (auto) Absolute Neuts (auto) Absolute Nucleated RBC Nucleated RBC % (auto) Hold Purple Top VBG pH VBG pCO2 VBG pO2 VBG HCO3 VBG O2 Saturation VBG Base Excess Anion Gap Estim Creat Clear Calc Estimated GFR POC Glucose 213 H Random Glucose Calcium Phosphorus Magnesium Albumin Assessment and Plan (1) Congestive heart failure: Status: Acute (2) Acute exacerbation of congestive heart failure: Status: Acute (3) Persistent atrial fibrillation: Status: Acute (4) Type 2 diabetes mellitus without complication, with no history of insulin use: Status: Acute Plan Assessment: 79-year-old male who presented to hospital for shortness of breath. Found to be in acute hypoxic respiratory failure after discontinuing his diuretics. The ED found to be in heart failure exacerbation requiring BiPAP and IV diuretics. Recently downgraded from the ICU. Acute heart failure exacerbation, likely secondary to medication noncompliance, improving Bilateral pleural effusions HFpEF w/ EF 50-55% seen on TTE on 04/16 Acute hypoxic respiratory failure, likely secondary to heart failure, improving -per patient, was not taking diuretics at home for the past 2 weeks. -status post IV Lasix given, patient previously on Bumex 1 mg p.o. b.i.d. -continue Lasix 40mg BID -continue with supplemental oxygen for SpO2 greater than 92%. -Cardiology following -cardiac, low-salt diet -Fluid restriction -will order chest x ray for tomorrow, bmp and Mg, whil patient on IV diuretics -will monitor kidney function given I and O Persistent atrial fibrillation -EKG reviewed with AFib -continue with Eliquis 2.5 mg b.i.d. -Place on telemetry -Cardiology consulted T2DM, chronic Insulin sliding scale, to maintain glucose between 140-180 mg/dL Will adjust medications accordingly BPH -continue with tamsulosin, monitor for any signs of retention. Hypertension, chronic Chronic kidney disease We will closely monitor creatinine function, continue with IV diuretics, avoid nephrotoxic medication and renally adjust medications Anemia of chronic disease Monitor for any signs of bleeding, hematuria, melena Transfuse for hemoglobin less than 7-8 Ambulatory dysfunction Generalized weakness Continue PT/OT as able, fall precautions FEN:Fluid restriction, replete as needed, cardiac low salt diet GI PPx: not indicated DVT PPx: Eliquis DISCLAIMER: This document was created using voice recognition software. Any mistakes in the prescription are unintentional. An attempt was made to focus for accuracy, but to expedite availability, some errors may persist. Please contact with any need for correction or further clarification. Quality Stroke Does the patient have a stroke diagnosis?: No VTE Prior VTE?: No VTE Risk Level:: Medical - moderate - high VTE Device Contraindication: Treatment Not Indicated VTE Drug Contraindication: N/A - Med Ordered
[2025-04-18 16:00] LABS: Glucose, Whole Blood 193 mg/dL (60-115)
[2025-04-18 20:32] LABS: Glucose, Whole Blood 186 mg/dL (60-115)
[2025-04-19] VITALS (12 sets, daily range): BP systolic 120–163; BP diastolic 59–73; PULSE 76–98; RESP 18–24; TEMP 36.3–36.9; O2SAT 95–99; BMI 27.0
[2025-04-19 07:40] LABS: Anion Gap 10 (12-20); Blood Urea Nitrogen 21 mg/dL (9-16); Calcium 8.2 mg/dL (8.4-10.2); Carbon Dioxide 29 mmol/L (22-29); Chloride 102 mmol/L (96-108); Creatinine Clr Calc Pharmacy 41.4; Estimated Glomerular Filt Rate 45; Magnesium 1.9 mg/dL (1.6-2.6); Potassium 3.2 mmol/L (3.3-5.1); Sodium 138 mmol/L (135-145)
[2025-04-19 08:05] LABS: Glucose, Whole Blood 125 mg/dL (60-115)
[2025-04-19] MEDS: 0.9 % Sodium Chloride Flush 3 ML SYRINGE IVFLUSH ×3 (09:22→21:31)
[2025-04-19] MEDS: Potassium Chloride Packet 20 MEQ PACKET 40 MEQ PO (09:22)
[2025-04-19] MEDS: Furosemide 40 MG/4 ML VIAL IVPUSH ×2 (09:26→12:08)
[2025-04-19 11:57] LABS: Glucose, Whole Blood 271 mg/dL (60-115)
--- NOTE | 2025-04-19 13:04 | HO.PM.IMPN ---
Subjective Subjective Date of Service: 04/19/25 Interval History: Patient seen examined at bedside this morning, currently on nasal cannula, mentions that his breathing has improved. However persists shortness of breath on minimal exertion. Continues on IV Lasix at this time. Patient's labs today showed hypokalemia. Continues on IV Lasix b.i.d. Review of Systems Review of Systems: Yes all other systems are reviewed and are negative Physical Exam Exam: Exam: General: AxOx3, on supplemental oxygen Head: AT/NC ENT: Moist mucous membranes Neck: supple, JVD CVS; irregular RR, S1 S2 normal Lungs: Decreased bilateral breath sounds Abd: Soft non tender, non distended Ext: SCDs in place MSK: moving all 4 limbs Skin: Sacral edema Psych: Cooperative with exam Neurology: no focal deficit Vital Signs: Vital Signs: Last Vital Signs Temp 97.5 F 04/19/25 11:25 Pulse 93 04/19/25 11:25 Resp 18 04/19/25 11:25 BP 129/70 04/19/25 12:08 Pulse Ox 98 04/19/25 11:25 O2 Del Method Oxymask 04/19/25 11:25 O2 Flow Rate 2 04/19/25 11:25 FiO2 25 04/17/25 16:00 BMI result Body Mass Index 27.0 Objective Data Active Medications Acetaminophen (Acetaminophen 325 Mg Tablet) 650 mg PO Q6H PRN PRN Reason: Pain, Mild 1-3,fever,headache Apixaban (Apixaban 2.5 Mg Tablet) 2.5 mg PO BID [facility] Last Admin: 04/19/25 09:26 Dose: 2.5 mg Documented By: VENITA Aspirin (Aspirin 81 Mg Tab.Chew) 81 mg PO DAILY [facility] Last Admin: 04/19/25 09:26 Dose: 81 mg Documented By: VENITA Calcium Carbonate (Calcium Carbonate 750 Mg Tab.Chew) 750 mg PO Q4H PRN PRN Reason: Heartburn Dextrose (Dextrose 50 % 25 Gm/50 Ml Syringe) 25 gm IVPUSH Q15M PRN; Protocol PRN Reason: per Hypoglycemia Standing Ord. Furosemide (Furosemide 40 Mg/4 Ml Vial) 40 mg IVPUSH TID [facility]; Protocol Last Admin: 04/19/25 12:08 Dose: 40 mg Documented By: VENITA Glucose (Glucose Gel 15 Gm Gel..Gram.) 15 gm PO Q15M PRN; Protocol PRN Reason: per Hypoglycemia Standing Ord. Insulin Human Lispro (Insulin Lispro 100 Unit/Ml 3 Ml Vial) 0 unit SUBCUT QIDACHS [facility]; Protocol Last Admin: 04/19/25 12:08 Dose: 6 unit Documented By: FIGDIAN Magnesium Hydroxide (Milk Of Magnesia 30 Ml Oral.Susp) 30 ml PO DAILY PRN PRN Reason: Constipation Melatonin (Melatonin 3 Mg Tablet) 6 mg PO BEDTIME PRN PRN Reason: Insomnia Sodium Chloride (0.9 % Sodium Chloride Flush 3 Ml Syringe) 3 ml IVFLUSH QSHIFT [facility] Last Admin: 04/19/25 09:22 Dose: 3 ml Documented By: FIGDIJOSSE Tamsulosin HCl (Tamsulosin Hcl 0.4 Mg Capsule) 0.4 mg PO DAILY [facility] Last Admin: 04/19/25 09:26 Dose: 0.4 mg Documented By: FIGDIAN Labs 04/18/25 07:00 04/19/25 06:21 Labs: Laboratory Results - last 24 hr 04/18/25 04/18/25 04/19/25 15:55 20:25 06:20 Hold Purple Top SEE NOTE Anion Gap Estim Creat Clear Calc Estimated GFR POC Glucose 193 H 186 H Random Glucose Calcium Magnesium 04/19/25 04/19/25 04/19/25 06:21 07:58 11:52 Hold Purple Top Anion Gap 10 L Estim Creat Clear Calc 41.4 Estimated GFR 45 POC Glucose 125 H 271 H Random Glucose 143 H Calcium 8.2 L Magnesium 1.9 Assessment and Plan (1) Congestive heart failure: Status: Acute (2) Persistent atrial fibrillation: Status: Acute (3) Type 2 diabetes mellitus without complication, with no history of insulin use: Status: Acute (4) Acute respiratory failure with hypercapnia: Status: Acute Plan Assessment: 79-year-old male who presented to hospital for shortness of breath. Found to be in acute hypoxic respiratory failure after discontinuing his diuretics. The ED found to be in heart failure exacerbation requiring BiPAP and IV diuretics. Recently downgraded from the ICU. Once intubated from the ICU, patient on supplemental oxygen, receiving IV Lasix. Acute heart failure exacerbation, likely secondary to medication noncompliance, improving Bilateral pleural effusions HFpEF w/ EF 50-55% seen on TTE on 04/16 Acute hypoxic respiratory failure, likely secondary to heart failure, improving -per patient, was not taking diuretics at home for the past 2 weeks. -status post IV Lasix given, patient previously on Bumex 1 mg p.o. b.i.d. -increase to Lasix 40mg TID -continue with supplemental oxygen for SpO2 greater than 92%, incentive spirometer added -Cardiology following -cardiac, low-salt diet -Fluid restriction -will monitor kidney function given I and O Persistent atrial fibrillation -EKG reviewed with AFib -continue with Eliquis 2.5 mg b.i.d. -Place on telemetry -Cardiology consulted and following Chronic kidney disease We will closely monitor creatinine function, continue with IV diuretics, avoid nephrotoxic medication and renally adjust medications T2DM, chronic Insulin sliding scale, to maintain glucose between 140-180 mg/dL Will adjust medications accordingly BPH -continue with tamsulosin, monitor for any signs of retention. Hypertension, chronic Hypokalemia -will give potassium Anemia of chronic disease Monitor for any signs of bleeding, hematuria, melena Transfuse for hemoglobin less than 7-8 Ambulatory dysfunction Generalized weakness Continue PT/OT as able, fall precautions Suspected dysphagia -MANUFACTURING ENGINEERING TECHNOLOGIST consulted FEN: Fluid restriction, replete as needed, cardiac low salt diet GI PPx: not indicated DVT PPx: Eliquis DISCLAIMER: This document was created using voice recognition software. Any mistakes in the prescription are unintentional. An attempt was made to focus for accuracy, but to expedite availability, some errors may persist. Please contact with any need for correction or further clarification. Quality Stroke Does the patient have a stroke diagnosis?: No VTE Prior VTE?: No VTE Risk Level:: Medical - moderate - high VTE Device Contraindication: Treatment Not Indicated VTE Drug Contraindication: N/A - Med Ordered
--- NOTE | 2025-04-19 13:18 | PM.PNCARD ---
Subjective Subjective Date of Service: 04/19/25 Interval history: Seen examined at bedside. More short of breath today. Also some concern that he has been coughing when he eats. Physical Exam Vital Signs: Last Vital Signs Temp 97.5 F 04/19/25 11:25 Pulse 93 04/19/25 11:25 Resp 18 04/19/25 11:25 BP 129/70 04/19/25 12:08 Pulse Ox 98 04/19/25 11:25 O2 Del Method Oxymask 04/19/25 11:25 O2 Flow Rate 2 04/19/25 11:25 FiO2 25 04/17/25 16:00 BMI result Body Mass Index 27.0 GENERAL APPEARANCE: On nasal cannula. Short of breath and tired appearing. NECK: no carotid bruit, ++ jugular venous distention. SKIN: no suspicious lesions, warm and dry. HEART: no murmurs, irregular rate and rhythm. LUNGS: Diminished breath sounds at bases. ABDOMEN: soft, nontender. EXTREMITIES: no edema. PERIPHERAL PULSES: equal. NEUROLOGIC: No gross deficits, AAO X 3 Objective Labs and Meds 04/18/25 07:00 04/19/25 06:21 Lab results: Laboratory Results - last 24 hr 04/18/25 04/18/25 04/19/25 15:55 20:25 06:20 Hold Purple Top SEE NOTE Sodium Potassium Chloride Carbon Dioxide Anion Gap BUN Creatinine Estim Creat Clear Calc Estimated GFR POC Glucose 193 H 186 H Random Glucose Calcium Magnesium 04/19/25 04/19/25 04/19/25 06:21 07:58 11:52 Hold Purple Top Sodium 138 Potassium 3.2 L Chloride 102 Carbon Dioxide 29 Anion Gap 10 L BUN 21 H Creatinine 1.49 H Estim Creat Clear Calc 41.4 Estimated GFR 45 POC Glucose 125 H 271 H Random Glucose 143 H Calcium 8.2 L Magnesium 1.9 Progress Note: A&P Assessment and plan (1) Cardiomyopathy: Status: Acute (2) Congestive heart failure: Status: Acute (3) Persistent atrial fibrillation: Status: Acute Plan 79-year-old gentleman with persistent atrial fibrillation and mild cardiomyopathy presenting with acute decompensated congestive heart failure. He also had hypercapnia requiring BiPAP. More short of breath today. He is not in negative balance. Increase Lasix to 80 mg IV b.i.d.. Adding low-dose spironolactone 12.5 mg daily. Use BiPAP every few hours to support the respiratory status. He has been coughing with eating and there is some concern about aspiration and speech therapy has been involved. Thank you for allowing me to participate in the care of your patient. Please feel free to contact me if you have any questions. Time Spent With Patient Time: Total time managing care of this patient today ____ minutes. Progress Note: Quality Stroke Does the patient have a stroke diagnosis?: No Procedures Date of Service Date of Service: 04/19/25
[2025-04-19 16:42] LABS: Glucose, Whole Blood 226 mg/dL (60-115)
[2025-04-19] MEDS: Furosemide 40 MG/4 ML VIAL 80 MG IVPUSH (17:38)
[2025-04-19 21:30] LABS: Glucose, Whole Blood 259 mg/dL (60-115)
[2025-04-20] VITALS (13 sets, daily range): BP systolic 107–144; BP diastolic 57–71; PULSE 70–113; RESP 18–35; TEMP 36.4–37.2; O2SAT 95–97; BMI 26.5
--- NOTE | 2025-04-20 01:50 | PC.NURSE ---
pt had multiple runs of PVC's, Dr. Jacobs made aware.
[2025-04-20 07:54] LABS: Glucose, Whole Blood 162 mg/dL (60-115)
[2025-04-20] MEDS: Furosemide 40 MG/4 ML VIAL 80 MG IVPUSH (08:00)
[2025-04-20] MEDS: 0.9 % Sodium Chloride Flush 3 ML SYRINGE IVFLUSH ×2 (08:00→16:02)
--- NOTE | 2025-04-20 10:21 | MHC.SLORD ---
Speech Language Pathology Order Status: THERAPY MANAGER called in per RN due to concerns of worsening swallow. Unable to perform swallow eval this a.m.- Patient not able to keep his eyes open, follow directions, or answer questions. Not responding to sternal rub or change in positioning. Patient is obtunded and unable to participate. Sons were present, report history of aspiration in the past. They report that patient had FEES and modified barium swallow at a hospital in [place] last month. He was using thickener for a short time while in the hospital but was cleared for thin liquids before being discharged and was doing well at home. They say yesterday he started coughing after eating and drinking, which they had not seen since he was hospitalized in [place]. They also report that patient's current presentation is a change from baseline, as he lives at home and is able to care for himself. RN reports change in swallow yesterday, with patient needing pills crushed (was previously taking them whole) and coughing at meal time. Recommend NPO at this time, provide frequent oral care for hygiene and comfort. THERAPY MANAGER to evaluate tomorrow morning.
[2025-04-20 11:08] LABS: ABG HCO3 36 mmol/L (22-26); ABG O2 % Saturation 100.0 %
[2025-04-20 12:06] LABS: Glucose, Whole Blood 176 mg/dL (60-115)
--- NOTE | 2025-04-20 14:00 | HO.PM.IMPN ---
Subjective Subjective Date of Service: 04/20/25 Interval History: Patient seen examined at bedside this morning, patient with encephalopathy, falling asleep probably in talking to. Patient also have a new episode of dysphagia. ABG obtained showed elevated pCO2. Family at bedside, updated on current situation. Review of Systems Review of Systems: Yes all other systems are reviewed and are negative Physical Exam Exam: Exam: General: somnolent Ox3, on supplemental oxygen Head: AT/NC ENT: Moist mucous membranes Neck: supple, JVD CVS; irregular RR, S1 S2 normal Lungs: Decreased bilateral breath sounds Abd: Soft non tender, non distended Ext: SCDs in place MSK: moving all 4 limbs Skin: Sacral edema Psych: Cooperative with exam Neurology: no focal deficit Vital Signs: Vital Signs: Last Vital Signs Temp 97.7 F 04/20/25 11:46 Pulse 110 H 04/20/25 11:46 Resp 21 H 04/20/25 11:46 BP 144/65 H 04/20/25 11:46 Pulse Ox 95 04/20/25 11:46 O2 Del Method BiPAP 04/20/25 11:46 O2 Flow Rate 2 04/20/25 07:41 FiO2 25 04/17/25 16:00 BMI result Body Mass Index 26.5 Objective Data Active Medications Acetaminophen (Acetaminophen 325 Mg Tablet) 650 mg PO Q6H PRN PRN Reason: Pain, Mild 1-3,fever,headache Apixaban (Apixaban 2.5 Mg Tablet) 2.5 mg PO BID [facility] Last Admin: 04/20/25 08:01 Dose: 2.5 mg Documented By: VENITA Aspirin (Aspirin 81 Mg Tab.Chew) 81 mg PO DAILY NANCY On Hold: 04/20/25 12:00 Last Admin: 04/20/25 08:01 Dose: 81 mg Documented By: VENITA Calcium Carbonate (Calcium Carbonate 750 Mg Tab.Chew) 750 mg PO Q4H PRN PRN Reason: Heartburn Dextrose (Dextrose 50 % 25 Gm/50 Ml Syringe) 25 gm IVPUSH Q15M PRN; Protocol PRN Reason: per Hypoglycemia Standing Ord. Glucose (Glucose Gel 15 Gm Gel..Gram.) 15 gm PO Q15M PRN; Protocol PRN Reason: per Hypoglycemia Standing Ord. Furosemide 200 mg/ Sodium (Chloride) 100 mls @ 5 mls/hr IVCONT .Q20H [facility] Insulin Human Lispro (Insulin Lispro 100 Unit/Ml 3 Ml Vial) 0 unit SUBCUT QIDACHS [facility]; Protocol Last Admin: 04/20/25 12:41 Dose: 2 unit Documented By: FIGDIJOSSE Magnesium Hydroxide (Milk Of Magnesia 30 Ml Oral.Susp) 30 ml PO DAILY PRN PRN Reason: Constipation Melatonin (Melatonin 3 Mg Tablet) 6 mg PO BEDTIME PRN PRN Reason: Insomnia Last Admin: 04/19/25 21:27 Dose: 6 mg Documented By: ORLANDV Sodium Chloride (0.9 % Sodium Chloride Flush 3 Ml Syringe) 3 ml IVFLUSH QSHIFT [facility] Last Admin: 04/20/25 08:00 Dose: 3 ml Documented By: FIGDIAN Spironolactone (Spironolactone 25 Mg Tablet) 12.5 mg PO DAILY [facility]; Protocol Last Admin: 04/20/25 08:01 Dose: 12.5 mg Documented By: HERBIEDIJOSSE Tamsulosin HCl (Tamsulosin Hcl 0.4 Mg Capsule) 0.4 mg PO DAILY [facility] Last Admin: 04/20/25 08:03 Dose: 0.4 mg Documented By: FIGDIAN Labs 04/18/25 07:00 04/19/25 06:21 Labs: Laboratory Results - last 24 hr 04/19/25 04/19/25 04/20/25 16:38 21:15 07:39 O2 Saturation ABG pH at Pt Temp ABG pCO2 at Pt Temp ABG pO2 at Pt Temp ABG HCO3 ABG Base Excess (Actual) POC Glucose 226 H 259 H 162 H 04/20/25 04/20/25 11:05 12:02 O2 Saturation 100.0 ABG pH at Pt Temp 7.27 L ABG pCO2 at Pt Temp 78 H* ABG pO2 at Pt Temp 110 H ABG HCO3 36 H ABG Base Excess (Actual) 7.8 POC Glucose 176 H Assessment and Plan (1) Acute exacerbation of congestive heart failure: Status: Acute (2) Persistent atrial fibrillation: Status: Acute (3) Type 2 diabetes mellitus without complication, with no history of insulin use: Status: Acute (4) Acute respiratory failure with hypercapnia: Status: Acute Plan Assessment: 79-year-old male who presented to hospital for shortness of breath. Found to be in acute hypoxic respiratory failure after discontinuing his diuretics. The ED found to be in heart failure exacerbation requiring BiPAP and IV diuretics. Recently downgraded from the ICU. Once intubated from the ICU, patient on supplemental oxygen, receiving IV Lasix. Metabolic encephalopthy secondary to CO2 retention Acute heart failure exacerbation Bilateral pleural effusions HFpEF w/ EF 50-55% seen on TTE on 04/16 -per patient, was not taking diuretics at home for the past 2 weeks. -given significant worsening, will initiate lasix gtt, daily labs, while on lasix drip mejia for strict I&Os, with goal of negative fluid balance -based on ABG obtained, BiPAP ordered -continue incentive spirometer -Cardiology following -cardiac, low-salt diet -Fluid restriction -will monitor kidney function given I and O Persistent atrial fibrillation -EKG reviewed with AFib -continue with Eliquis 2.5 mg b[address]d. -Place on telemetry -Cardiology consulted and following Chronic kidney disease We will closely monitor creatinine function, continue with IV diuretics, avoid nephrotoxic medication and renally adjust medications T2DM, chronic Insulin sliding scale, to maintain glucose between 140-180 mg/dL Will adjust medications accordingly BPH -continue with tamsulosin, monitor for any signs of retention. Hypertension, chronic Anemia of chronic disease Monitor for any signs of bleeding, hematuria, melena Transfuse for hemoglobin less than 7-8 Ambulatory dysfunction Generalized weakness Continue PT/OT as able, fall precautions Dysphagia -TRIBAL DELE[employer]ATE consulted, at this time will switch diet consistency FEN: Fluid restriction, replete as needed, cardiac low salt diet GI PPx: not indicated DVT PPx: Eliquis DISCLAIMER: This document was created using voice recognition software. Any mistakes in the prescription are unintentional. An attempt was made to focus for accuracy, but to expedite availability, some errors may persist. Please contact with any need for correction or further clarification. Quality Stroke Does the patient have a stroke diagnosis?: No VTE Prior VTE?: No VTE Risk Level:: Medical - moderate - high VTE Device Contraindication: Treatment Not Indicated VTE Drug Contraindication: N/A - Med Ordered
--- NOTE | 2025-04-20 14:04 | PM.PNCARD ---
Subjective Subjective Date of Service: 04/20/25 Interval history: Seen examined at bedside. Confused and back on BiPAP at this stage. Physical Exam Vital Signs: Last Vital Signs Temp 97.7 F 04/20/25 11:46 Pulse 110 H 04/20/25 11:46 Resp 21 H 04/20/25 11:46 BP 144/65 H 04/20/25 11:46 Pulse Ox 95 04/20/25 11:46 O2 Del Method BiPAP 04/20/25 11:46 O2 Flow Rate 2 04/20/25 07:41 FiO2 25 04/17/25 16:00 BMI result Body Mass Index 26.5 GENERAL APPEARANCE: On BiPAP. Not arousable. NECK: no carotid bruit, ++ jugular venous distention. SKIN: no suspicious lesions, warm and dry. HEART: no murmurs, irregular rate and rhythm. LUNGS: Diminished breath sounds at bases. ABDOMEN: soft, nontender. EXTREMITIES: no edema. PERIPHERAL PULSES: equal. NEUROLOGIC: On BiPAP. Not arousable. Objective Labs and Meds 04/18/25 07:00 04/19/25 06:21 Lab results: Laboratory Results - last 24 hr 04/19/25 04/19/25 04/20/25 16:38 21:15 07:39 O2 Saturation ABG pH at Pt Temp ABG pCO2 at Pt Temp ABG pO2 at Pt Temp ABG HCO3 ABG Base Excess (Actual) POC Glucose 226 H 259 H 162 H 04/20/25 04/20/25 11:05 12:02 O2 Saturation 100.0 ABG pH at Pt Temp 7.27 L ABG pCO2 at Pt Temp 78 H* ABG pO2 at Pt Temp 110 H ABG HCO3 36 H ABG Base Excess (Actual) 7.8 POC Glucose 176 H Progress Note: A&P Assessment and plan (1) Acute exacerbation of congestive heart failure: Status: Acute (2) Acute respiratory failure with hypercapnia: Status: Acute Plan [age] year gentleman with acute exacerbation heart failure and hypercapnic respiratory failure. Clinically volume overloaded. He has not been diuresing well over the last 48 hours. Clinical worsening in respiratory status as well as mental status due to hypercapnia. He is on BiPAP. Still quite sleepy and not arousable. Consider repeating the blood gas and adjusting the BiPAP pressure. Lasix drip give 80 mg bolus and start him at 7.5 milligram/hour. Stopping the baby aspirin. He also is anemic and is on Eliquis. If anemia worsened Eliquis should be held then as volume status improves we can consider giving him some blood transfusion. Monitor electrolytes closely. Thank you for allowing me to participate in the care of your patient. Please feel free to contact me if you have any questions. Time Spent With Patient Time: Total time managing care of this patient today ____ minutes. Progress Note: Quality Stroke Does the patient have a stroke diagnosis?: No Procedures Date of Service Date of Service: 04/20/25
[2025-04-20 16:00] LABS: Glucose, Whole Blood 151 mg/dL (60-115)
[2025-04-20] MEDS: Furosemide 200 MG in 0.9 % Sodium Chloride 80 ML IVCONT (16:10)
[2025-04-20 21:15] LABS: Venous Blood Gas Refer to POC result
[2025-04-20 21:22] LABS: VBG HCO3 37 mmol/L (22-26)
[2025-04-20 21:40] LABS: Glucose, Whole Blood 121 mg/dL (60-115)
[2025-04-21] VITALS (9 sets, daily range): BP systolic 107–136; BP diastolic 49–63; PULSE 83–103; RESP 16–22; TEMP 36.1–36.6; O2SAT 92–99; BMI 32.8
[2025-04-21] MEDS: 0.9 % Sodium Chloride Flush 3 ML SYRINGE IVFLUSH ×3 (00:29→15:52)
[2025-04-21 07:21] LABS: Magnesium 2.0 mg/dL (1.6-2.6)
[2025-04-21 07:21] LABS: Anion Gap 15 (12-20); Blood Urea Nitrogen 22 mg/dL (9-16); Calcium 8.5 mg/dL (8.4-10.2); Carbon Dioxide 31 mmol/L (22-29); Chloride 99 mmol/L (96-108); Creatinine Clr Calc Pharmacy 48.3; Estimated Glomerular Filt Rate 45; Potassium 3.3 mmol/L (3.3-5.1); Sodium 142 mmol/L (135-145)
[2025-04-21 08:02] LABS: Glucose, Whole Blood 118 mg/dL (60-115)
[2025-04-21 08:51] LABS: ABG Refer to POC result
[2025-04-21] MEDS: Furosemide 200 MG in 0.9 % Sodium Chloride 80 ML IVCONT (09:00)
--- NOTE | 2025-04-21 10:59 | MHC.CM.PN ---
Per ROUNDS discussion, Patient is not yet medically cleared for dc (Lasix Drip); Patient may benefit from a PT Eval to assist with disposition. CM will continue to follow.
[2025-04-21 11:35] LABS: Glucose, Whole Blood 140 mg/dL (60-115)
--- NOTE | 2025-04-21 11:37 | PM.PNCARD ---
Subjective Subjective Date of Service: 04/21/25 Principal diagnosis: CHF, hypercapnic respiratory failure Interval history: Patient was seen at bedside with his son present. As per the son he is much more awake compared to yesterday after the BiPAP trial. Patient is asking for cold water. Appears to be responding appropriately to questions. Has been diuresed. Overall negative balance since admission has been-2300 cc as chart it in his chart. Not sure if this is completely accurate. Currently on Lasix drip at 7.5 mg an hour. Also on spironolactone and acetazolamide. Review of Systems Constitutional: Reports lethargy and Reports weakness Cardiovascular: Denies chest pain, Denies leg edema, Denies lightheadedness, Denies Loss of Consciousness, Denies palpitations and Reports dyspnea Respiratory: Reports dyspnea and Reports other (Hypercapnia) Genitourinary: Reports no additional male genitourinary complaints Musculoskeletal: Reports no additional musculoskeletal complaints Reports weakness and Reports other (Altered mental status) Endocrine: Denies palpitations Physical Exam Vital Signs: Last Vital Signs Temp 97.0 F 04/21/25 07:54 Pulse 83 04/21/25 07:54 Resp 19 04/21/25 07:54 BP 114/49 L 04/21/25 07:54 Pulse Ox 99 04/21/25 07:54 O2 Del Method BiPAP 04/21/25 07:54 O2 Flow Rate 2 04/20/25 07:41 FiO2 25 04/17/25 16:00 BMI result Body Mass Index 32.8 Const General: cooperative, no acute distress, alert and awake Nutritional Appearance: overweight Neck Neck: Yes trachea midline and Yes JVD Resp Effort & Inspection: decreased respiratory effort Auscultation: breath sounds absent bilateral Cardio Jugular venous distension: JVD Rhythm: abnormal rhythm irregularly irregular Heart sounds: S1 normal heart sound present, S2 normal heart sound present, no click, no gallops and no murmurs GI Auscultation: normal bowel sounds Skin General skin exam: no rashes or lesions noted and ecchymosis Neuro General: moves all extremities Extrem General: Yes no clubbing, cyanosis or edema Objective Labs and Meds 04/18/25 07:00 04/21/25 05:43 Lab results: Laboratory Results - last 24 hr 04/20/25 04/20/25 04/20/25 12:02 15:54 21:08 VBG pH 7.50 H VBG pCO2 47 VBG pO2 115 VBG HCO3 37 H VBG O2 Saturation TNP VBG Base Excess 12.8 Sodium Potassium Chloride Carbon Dioxide Anion Gap BUN Creatinine Estim Creat Clear Calc Estimated GFR POC Glucose 176 H 151 H Random Glucose Calcium Magnesium 04/20/25 04/21/25 04/21/25 21:33 05:43 07:00 VBG pH VBG pCO2 VBG pO2 VBG HCO3 VBG O2 Saturation VBG Base Excess Sodium 142 Potassium 3.3 Chloride 99 Carbon Dioxide 31 H Anion Gap 15 BUN 22 H Creatinine 1.49 H Estim Creat Clear Calc 48.3 Estimated GFR 45 POC Glucose 121 H Random Glucose 117 H Calcium 8.5 Magnesium 2.0 04/21/25 04/21/25 07:59 11:23 VBG pH VBG pCO2 VBG pO2 VBG HCO3 VBG O2 Saturation VBG Base Excess Sodium Potassium Chloride Carbon Dioxide Anion Gap BUN Creatinine Estim Creat Clear Calc Estimated GFR POC Glucose 118 H 140 H Random Glucose Calcium Magnesium Progress Note: A&P Assessment and plan (1) Acute respiratory failure with hypercapnia: Status: Acute Assessment and Plan: Acute hypercapnic respiratory failure which is not usually seen in patients with decompensated congestive heart failure. He does have significant bilateral pleural effusion which could cause compressive atelectasis and poor ventilation. Could also have underlying COPD. Consider pulmonary consultation for further management as outpatient. Also image with noncontrast chest CT to evaluate for presence of significant pleural effusion that might benefit from thoracocentesis. Continue IV diuresis, see below. Overall may need continued BiPAP therapy at nighttime. Incentive spirometry is recommended. (2) Acute exacerbation of congestive heart failure: Status: Acute Assessment and Plan: Heart failure with preserved ejection fraction most likely related to chronic atrial fibrillation significant right-sided heart failure. Continue IV diuresis. I would not stop his diuretic in the future given that this would most likely cause precipitation of heart failure. Agree with spironolactone therapy. Also add Jardiance 10 mg to his regimen. Continue rate control for now. Continue anticoagulation with Eliquis. Will follow with you Time Spent With Patient Time: Total time managing care of this patient today ____ minutes. Progress Note: Quality Stroke Does the patient have a stroke diagnosis?: No Procedures Date of Service Date of Service: 04/21/25
[2025-04-21 12:16] LABS: ABG HCO3 35 mmol/L (22-26)
--- NOTE | 2025-04-21 15:34 | P.PNIM_ITS ---
Subjective Subjective Date of Service: 04/21/25 Interval History: Patient seen examined at bedside this morning, patient's mentation has slightly improved, at this time in negative fluid balance. Spoke with Cardiology, suggested on getting CT noncontrast as well as Pulmonary consult. Review of Systems Review of Systems: Yes all other systems are reviewed and are negative Physical Exam 2 Exam: Exam: General: AlertxOx3, on supplemental oxygen Head: AT/NC ENT: Moist mucous membranes Neck: supple, JVD CVS; irregular RR, S1 S2 normal Lungs: Decreased bilateral breath sounds Abd: Soft non tender, non distended Ext: SCDs in place MSK: moving all 4 limbs Skin: Sacral edema Psych: Cooperative with exam Neurology: no focal deficit Vital Signs: Vital Signs: Last Vital Signs Temp 97.0 F 04/21/25 12:00 Pulse 100 04/21/25 12:00 Resp 16 04/21/25 12:00 BP 114/49 L 04/21/25 12:00 Pulse Ox 92 04/21/25 12:00 O2 Del Method Room Air 04/21/25 12:00 O2 Flow Rate 2 04/20/25 07:41 FiO2 25 04/17/25 16:00 BMI result Body Mass Index 32.8 Objective Data Active Medications Acetaminophen (Acetaminophen 325 Mg Tablet) 650 mg PO Q6H PRN PRN Reason: Pain, Mild 1-3,fever,headache Apixaban (Apixaban 2.5 Mg Tablet) 2.5 mg PO BID [facility] Last Admin: 04/21/25 08:52 Dose: Not Given Documented By: FLORENCIA Non-Admin Reason: NPO Aspirin (Aspirin 81 Mg Tab.Chew) 81 mg PO DAILY NANCY On Hold: 04/20/25 12:00 Last Admin: 04/20/25 08:01 Dose: 81 mg Documented By: VENITA Calcium Carbonate (Calcium Carbonate 750 Mg Tab.Chew) 750 mg PO Q4H PRN PRN Reason: Heartburn Dextrose (Dextrose 50 % 25 Gm/50 Ml Syringe) 25 gm IVPUSH Q15M PRN; Protocol PRN Reason: per Hypoglycemia Standing Ord. Glucose (Glucose Gel 15 Gm Gel..Gram.) 15 gm PO Q15M PRN; Protocol PRN Reason: per Hypoglycemia Standing Ord. Furosemide 200 mg/ Sodium (Chloride) 100 mls @ 3.75 mls/hr IVCONT .Q24H [facility] Last Admin: 04/21/25 09:00 Dose: 7.5 mg/hr, 3.75 mls/hr Documented By: FLORENCIA Insulin Human Lispro (Insulin Lispro 100 Unit/Ml 3 Ml Vial) 0 unit SUBCUT QIDACHS [facility]; Protocol Last Admin: 04/21/25 12:02 Dose: Not Given Documented By: FLORENCIA Non-Admin Reason: No Insulin Coverage Magnesium Hydroxide (Milk Of Magnesia 30 Ml Oral.Susp) 30 ml PO DAILY PRN PRN Reason: Constipation Melatonin (Melatonin 3 Mg Tablet) 6 mg PO BEDTIME PRN PRN Reason: Insomnia Last Admin: 04/19/25 21:27 Dose: 6 mg Documented By: ASHLEY Sodium Chloride (0.9 % Sodium Chloride Flush 3 Ml Syringe) 3 ml IVFLUSH QSHIFT [facility] Last Admin: 04/21/25 09:00 Dose: 3 ml Documented By: FLORENCIA Spironolactone (Spironolactone 25 Mg Tablet) 12.5 mg PO DAILY [facility]; Protocol Last Admin: 04/21/25 08:52 Dose: Not Given Documented By: FLORENCIA Non-Admin Reason: NPO Tamsulosin HCl (Tamsulosin Hcl 0.4 Mg Capsule) 0.4 mg PO DAILY [facility] Last Admin: 04/21/25 08:52 Dose: Not Given Documented By: FLORENCIA Non-Admin Reason: NPO Labs 04/18/25 07:00 04/21/25 05:43 Labs: Laboratory Results - last 24 hr 04/20/25 04/20/25 04/20/25 15:54 21:08 21:33 ABG pH at Pt Temp ABG pCO2 at Pt Temp ABG pO2 at Pt Temp ABG HCO3 ABG Base Excess (Actual) VBG pH 7.50 H VBG pCO2 47 VBG pO2 115 VBG HCO3 37 H VBG O2 Saturation TNP VBG Base Excess 12.8 Anion Gap Estim Creat Clear Calc Estimated GFR POC Glucose 151 H 121 H Random Glucose Calcium Magnesium 04/21/25 04/21/25 04/21/25 05:43 07:00 07:59 ABG pH at Pt Temp ABG pCO2 at Pt Temp ABG pO2 at Pt Temp ABG HCO3 ABG Base Excess (Actual) VBG pH VBG pCO2 VBG pO2 VBG HCO3 VBG O2 Saturation VBG Base Excess Anion Gap 15 Estim Creat Clear Calc 48.3 Estimated GFR 45 POC Glucose 118 H Random Glucose 117 H Calcium 8.5 Magnesium 2.0 04/21/25 04/21/25 11:23 12:13 ABG pH at Pt Temp 7.48 H ABG pCO2 at Pt Temp 46 H ABG pO2 at Pt Temp 72 L ABG HCO3 35 H ABG Base Excess (Actual) 10.6 VBG pH VBG pCO2 VBG pO2 VBG HCO3 VBG O2 Saturation VBG Base Excess Anion Gap Estim Creat Clear Calc Estimated GFR POC Glucose 140 H Random Glucose Calcium Magnesium Assessment and Plan (1) Congestive heart failure: Status: Acute (2) Persistent atrial fibrillation: Status: Acute (3) Type 2 diabetes mellitus without complication, with no history of insulin use: Status: Acute (4) Acute respiratory failure with hypercapnia: Status: Acute Plan Assessment: 79-year-old male who presented to hospital for shortness of breath. Found to be in acute hypoxic respiratory failure after discontinuing his diuretics. The ED found to be in heart failure exacerbation requiring BiPAP and IV diuretics. Recently downgraded from the ICU. Once intubated from the ICU, patient on supplemental oxygen, patient developed worsening mental status, continued with positive fluid balance, placed on lasix drip on 04/20. Metabolic encephalopthy secondary to CO2 retention Acute heart failure exacerbation Bilateral pleural effusions HFpEF w/ EF 50-55% seen on TTE on 04/16 -per patient, was not taking diuretics at home for the past 2 weeks. -continue lasix gtt, daily labs, while on lasix drip mejia for strict I&Os, with goal of negative fluid balance -chest ct w/out contrast ordered, Pulmonology consulted. -continue incentive spirometer -Cardiology following -cardiac, low-salt diet -Fluid restriction -will monitor kidney function given I and O Persistent atrial fibrillation -EKG reviewed with AFib -continue with Eliquis 2.5 mg b.i.d. -Place on telemetry -Cardiology consulted and following Chronic kidney disease We will closely monitor creatinine function, continue with IV diuretics, avoid nephrotoxic medication and renally adjust medications T2DM, chronic Insulin sliding scale, to maintain glucose between 140-180 mg/dL Will adjust medications accordingly BPH -continue with tamsulosin, monitor for any signs of retention. Hypertension, chronic Anemia of chronic disease Monitor for any signs of bleeding, hematuria, melena Transfuse for hemoglobin less than 7-8 Ambulatory dysfunction Generalized weakness Continue PT/OT as able, fall precautions Dysphagia -[employer] consulted FEN: Fluid restriction, replete as needed, cardiac low salt diet GI PPx: not indicated DVT PPx: Eliquis DISCLAIMER: This document was created using voice recognition software. Any mistakes in the prescription are unintentional. An attempt was made to focus for accuracy, but to expedite availability, some errors may persist. Please contact with any need for correction or further clarification. Quality Stroke Does the patient have a stroke diagnosis?: No VTE Prior VTE?: No VTE Risk Level:: Medical - moderate - high VTE Device Contraindication: Treatment Not Indicated VTE Drug Contraindication: N/A - Med Ordered
[2025-04-21 15:46] LABS: Glucose, Whole Blood 149 mg/dL (60-115)
--- NOTE | 2025-04-21 16:39 | P.CONPL_ITS ---
History of Present Illness History of Present Illness Consult date: 04/21/25 Chief complaint: Shortness of breath Narrative: This is an inpatient pulmonary consultation. The patient is a 79-year-old male who presented to hospital for shortness of breath. Patient found to be in acute hypoxic respiratory failure, began approximately 1-2 weeks ago, patient states that he visited his wastewater analyst, who suggested on discontinuing his diuretics, to assess kidney function and heart failure. Patient then began with worsening shortness of breath on minimal exertion. On arrival, patient is saturating 84% on room air, with rales, 2+ pitting edema. ProBNP 296. Chest x-ray with pulmonary edema and bilateral pleural effusions. Patient received 40 mg of IV Lasix. At this time patient states then he continued to feel short of breath on minimal exertion. Patient does not recall dose of Lasix, however on chart review patient was recently prescribed Bumex 1 mg b.i.d. on 03/04/2025. Now in the hospital he was placed on a Lasix drip. Seems to be tolerating it well diuresing well. He had a repeat chest x-ray still demonstrating bilateral bibasilar opacities with bilateral large pleural effusions which I reviewed. In addition to that he had a CT scan of chest personally by me demonstrating large pleural effusions also with significant pulmonary edema and bilateral atelectasis. In addition to that while in the hospital the patient did develop respiratory failure requiring BiPAP due to acute on chronic hypercarbic respiratory failure. Now he is requiring BiPAP for worsening acidosis. The patient does require BiPAP nocturnally. Seems to be tolerating the 18/8 pressures well which will continue. Upon discharge the patient needs to be able to continue noninvasive therapy otherwise he is going to end up back in the hospital. Review of Systems 2 Constitutional: Constitutional: Reports lethargy and Reports weakness Cardiovascular: Cardiovascular: Denies chest pain, Denies leg edema, Denies lightheadedness, Denies Loss of Consciousness, Denies palpitations and Reports dyspnea Respiratory: Respiratory: Reports dyspnea and Reports other (Hypercapnia) Genitourinary: Genitourinary: Reports no additional male genitourinary complaints Musculoskeletal: Musculoskeletal: Reports no additional musculoskeletal complaints Neurologic: Reports weakness and Reports other (Altered mental status) Endocrine: Endocrine: Denies palpitations [facility] Past Medical History Medical History (Updated 04/21/25 @ 16:44 by Tal Pompa MD) Pulmonary edema Pleural effusion Stasis dermatitis of both legs History of congestive heart failure Physical deconditioning Weakness Hypertensive retinopathy Posterior vitreous detachment, left eye Epiphora due to excess lacrimation of right side Senile ectropion of right lower eyelid BPH (benign prostatic hyperplasia) Type 2 diabetes mellitus without complication, with no history of insulin use Normocytic anemia Thrombocytopenia COVID-19 vaccine series completed 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 Surgical History Surgical History Status post cardiac catheterization Hx of cardiac catheterization History of hydrocelectomy Hx of transurethral resection of prostate H/O colonoscopy Deviated septum History of left knee replacement Social History Social History Household Members: None Housing: House Are you a primary care clinician to a significant other at home: No Do you presently have visiting nurse or other home services: Yes (patient has visiting nurse and physical therapy once a week) Patient Tobacco Use Status: Never used Tobacco e-Cigarette/Vaping Use: Never Used Second Hand Smoke Exposure: Yes Advance Directives Date on File: 12/28/23 service: No Current occupational status: retired Cognitive needs: No Hearing needs: No Vision needs: Yes Meds Allergies Allergy/AdvReac Type Severity Reaction Status Date / Time cephalexin (Keflex) Allergy Intermediate hives Verified 04/16/25 12:03 levofloxacin Allergy Intermediate Hives Verified 04/16/25 12:03 cetirizine (From Zyrtec) AdvReac Intermediate Fatigue Verified 04/16/25 12:03 Active Medications: Current Medications Acetaminophen (Acetaminophen 325 Mg Tablet) 650 mg PO Q6H PRN PRN Reason: Pain, Mild 1-3,fever,headache Apixaban (Apixaban 2.5 Mg Tablet) 2.5 mg PO BID NANCY Last Admin: 04/21/25 08:52 Dose: Not Given Aspirin (Aspirin 81 Mg Tab.Chew) 81 mg PO DAILY [facility] On Hold: 04/20/25 12:00 Last Admin: 04/20/25 08:01 Dose: 81 mg Calcium Carbonate (Calcium Carbonate 750 Mg Tab.Chew) 750 mg PO Q4H PRN PRN Reason: Heartburn Dextrose (Dextrose 50 % 25 Gm/50 Ml Syringe) 25 gm IVPUSH Q15M PRN; Protocol PRN Reason: per Hypoglycemia Standing Ord. Glucose (Glucose Gel 15 Gm Gel..Gram.) 15 gm PO Q15M PRN; Protocol PRN Reason: per Hypoglycemia Standing Ord. Furosemide 200 mg/ Sodium (Chloride) 100 mls @ 3.75 mls/hr IVCONT .Q24H [facility] Last Admin: 04/21/25 09:00 Dose: 7.5 mg/hr, 3.75 mls/hr Insulin Human Lispro (Insulin Lispro 100 Unit/Ml 3 Ml Vial) 0 unit SUBCUT QIDACHS [facility]; Protocol Last Admin: 04/21/25 15:48 Dose: Not Given Magnesium Hydroxide (Milk Of Magnesia 30 Ml Oral.Susp) 30 ml PO DAILY PRN PRN Reason: Constipation Melatonin (Melatonin 3 Mg Tablet) 6 mg PO BEDTIME PRN PRN Reason: Insomnia Last Admin: 04/19/25 21:27 Dose: 6 mg Sodium Chloride (0.9 % Sodium Chloride Flush 3 Ml Syringe) 3 ml IVFLUSH QSHIFT [facility] Last Admin: 04/21/25 15:52 Dose: 3 ml Spironolactone (Spironolactone 25 Mg Tablet) 12.5 mg PO DAILY [facility]; Protocol Last Admin: 04/21/25 08:52 Dose: Not Given Tamsulosin HCl (Tamsulosin Hcl 0.4 Mg Capsule) 0.4 mg PO DAILY [facility] Last Admin: 04/21/25 08:52 Dose: Not Given Home Medications ?Medication ?Instructions ?Recorded ?Confirmed ?Last Taken ?Type acetaminophen 500 mg tablet 500 mg PO Q6H PRN Fever Or Pain 03/13/25 04/16/25 Unknown History aspirin 81 mg tablet 81 mg PO DAILY 03/13/2504/0204/15/25 History Physical Exam 2 Vital Signs: Vital Signs: Last Vital Signs Temp 97.9 F 04/21/25 16:00 Pulse 97 04/21/25 16:00 Resp 18 04/21/25 16:00 BP 127/58 L 04/21/25 16:00 Pulse Ox 95 04/21/25 16:00 O2 Del Method Nasal Cannula 04/21/25 16:00 O2 Flow Rate 2 04/21/25 16:00 FiO2 25 04/17/25 16:00 BMI result Body Mass Index 32.8 Const: General: cooperative, no acute distress, alert and awake Nutritional Appearance: overweight Neck: Neck: Yes trachea midline and Yes JVD Resp: Effort & Inspection: decreased respiratory effort Auscultation: b reath sounds absent bilateral Cardio: Jugular venous distension: JVD Rhythm: abnormal rhythm irregularly irregular Heart sounds: S1 normal heart sound present, S2 normal heart sound present, no click, no gallops and no murmurs GI: Auscultation: normal bowel sounds Skin: General skin exam: no rashes or lesions noted and ecchymosis Neuro: General: moves all extremities Extrem: General: Yes no clubbing, cyanosis or edema Results Laboratory Findings 04/18/25 07:00 04/21/25 05:43 Abnormal lab findings: Abnormal Labs 04/16/25 04/16/25 04/16/25 13:08 13:09 13:14 RBC 3.18 L Hgb 8.9 L Hct 28.2 L RDW 23.1 H Immature Gran % (Auto) 1.2 H Neut % (Auto) 82.1 H Lymph % (Auto) 9.7 L Lymph # (Auto) 0.8 L Abs Immat Gran (auto) 0.09 H Absolute Nucleated RBC Nucleated RBC % (auto) ABG pH at Pt Temp ABG pCO2 at Pt Temp ABG pO2 at Pt Temp ABG HCO3 VBG pH 7.29 L VBG HCO3 32 H Potassium Carbon Dioxide Anion Gap BUN 18 H Creatinine POC Glucose Random Glucose 257 H Calcium Phosphorus NT-Pro-B Natriuret Pep 2960.2 H Total Protein 5.9 L Albumin HDL Cholesterol 31 L 04/16/25 04/16/25 04/16/25 16:53 17:10 19:25 RBC Hgb Hct RDW Immature Gran % (Auto) Neut % (Auto) Lymph % (Auto) Lymph # (Auto) Abs Immat Gran (auto) Absolute Nucleated RBC Nucleated RBC % (auto) ABG pH at Pt Temp 7.17 L* ABG pCO2 at Pt Temp 83 H* 53 H ABG pO2 at Pt Temp 114 H ABG HCO3 31 H 31 H VBG pH VBG HCO3 Potassium Carbon Dioxide Anion Gap BUN Creatinine POC Glucose 278 H Random Glucose Calcium Phosphorus NT-Pro-B Natriuret Pep Total Protein Albumin HDL Cholesterol 04/16/25 04/16/25 04/16/25 19:48 19:55 20:51 RBC Hgb Hct RDW Immature Gran % (Auto) Neut % (Auto) Lymph % (Auto) Lymph # (Auto) Abs Immat Gran (auto) Absolute Nucleated RBC Nucleated RBC % (auto) ABG pH at Pt Temp ABG pCO2 at Pt Temp ABG pO2 at Pt Temp ABG HCO3 VBG pH VBG HCO3 33 H Potassium Carbon Dioxide 30 H Anion Gap 9 L BUN 17 H Creatinine POC Glucose 206 H Random Glucose 272 H Calcium Phosphorus 4.6 H NT-Pro-B Natriuret Pep Total Protein Albumin HDL Cholesterol 04/17/25 04/17/25 04/17/25 05:26 05:34 07:20 RBC 3.06 L Hgb 8.8 L Hct 27.2 L RDW 22.8 H Immature Gran % (Auto) 1.3 H Neut % (Auto) Lymph % (Auto) 16.8 L Lymph # (Auto) 1.1 L Abs Immat Gran (auto) 0.08 H Absolute Nucleated RBC 0.030 H Nucleated RBC % (auto) 0.5 H ABG pH at Pt Temp ABG pCO2 at Pt Temp ABG pO2 at Pt Temp ABG HCO3 VBG pH 7.55 H VBG HCO3 30 H Potassium Carbon Dioxide Anion Gap BUN 17 H Creatinine POC Glucose 126 H Random Glucose Calcium Phosphorus NT-Pro-B Natriuret Pep Total Protein Albumin HDL Cholesterol 04/17/25 04/17/25 04/17/25 11:57 11:59 13:16 RBC Hgb Hct RDW Immature Gran % (Auto) Neut % (Auto) Lymph % (Auto) Lymph # (Auto) Abs Immat Gran (auto) Absolute Nucleated RBC Nucleated RBC % (auto) ABG pH at Pt Temp 7.28 L ABG pCO2 at Pt Temp 68 H* 54 H ABG pO2 at Pt Temp 76 L 75 L ABG HCO3 32 H 33 H VBG pH VBG HCO3 Potassium Carbon Dioxide Anion Gap BUN Creatinine POC Glucose 262 H Random Glucose Calcium Phosphorus NT-Pro-B Natriuret Pep Total Protein Albumin HDL Cholesterol 04/17/25 04/17/25 04/17/25 16:47 18:39 20:08 RBC Hgb Hct RDW Immature Gran % (Auto) Neut % (Auto) Lymph % (Auto) Lymph # (Auto) Abs Immat Gran (auto) Absolute Nucleated RBC Nucleated RBC % (auto) ABG pH at Pt Temp ABG pCO2 at Pt Temp ABG pO2 at Pt Temp ABG HCO3 VBG pH VBG HCO3 Potassium Carbon Dioxide Anion Gap BUN 19 H Creatinine POC Glucose 221 H 216 H Random Glucose 235 H Calcium Phosphorus NT-Pro-B Natriuret Pep Total Protein Albumin HDL Cholesterol 04/18/25 04/18/25 04/18/25 07:00 07:08 11:58 RBC 2.73 L Hgb 7.7 L Hct 24.3 L RDW 23.8 H Immature Gran % (Auto) 1.1 H Neut % (Auto) Lymph % (Auto) 17.8 L Lymph # (Auto) 1.0 L Abs Immat Gran (auto) 0.06 H Absolute Nucleated RBC Nucleated RBC % (auto) ABG pH at Pt Temp ABG pCO2 at Pt Temp ABG pO2 at Pt Temp ABG HCO3 VBG pH VBG HCO3 35 H Potassium Carbon Dioxide Anion Gap 10 L BUN 21 H Creatinine 1.44 H POC Glucose 213 H Random Glucose Calcium 8.3 L Phosphorus NT-Pro-B Natriuret Pep Total Protein Albumin 3.0 L HDL Cholesterol 04/18/25 04/18/25 04/19/25 15:55 20:25 06:21 RBC Hgb Hct RDW Immature Gran % (Auto) Neut % (Auto) Lymph % (Auto) Lymph # (Auto) Abs Immat Gran (auto) Absolute Nucleated RBC Nucleated RBC % (auto) ABG pH at Pt Temp ABG pCO2 at Pt Temp ABG pO2 at Pt Temp ABG HCO3 VBG pH VBG HCO3 Potassium 3.2 L Carbon Dioxide Anion Gap 10 L BUN 21 H Creatinine 1.49 H POC Glucose 193 H 186 H Random Glucose 143 H Calcium 8.2 L Phosphorus NT-Pro-B Natriuret Pep Total Protein Albumin HDL Cholesterol 04/19/25 04/19/25 04/19/25 07:58 11:52 16:38 RBC Hgb Hct RDW Immature Gran % (Auto) Neut % (Auto) Lymph % (Auto) Lymph # (Auto) Abs Immat Gran (auto) Absolute Nucleated RBC Nucleated RBC % (auto) ABG pH at Pt Temp ABG pCO2 at Pt Temp ABG pO2 at Pt Temp ABG HCO3 VBG pH VBG HCO3 Potassium Carbon Dioxide Anion Gap BUN Creatinine POC Glucose 125 H 271 H 226 H Random Glucose Calcium Phosphorus NT-Pro-B Natriuret Pep Total Protein Albumin HDL Cholesterol 04/19/25 04/20/25 04/20/25 21:15 07:39 11:05 RBC Hgb Hct RDW Immature Gran % (Auto) Neut % (Auto) Lymph % (Auto) Lymph # (Auto) Abs Immat Gran (auto) Absolute Nucleated RBC Nucleated RBC % (auto) ABG pH at Pt Temp 7.27 L ABG pCO2 at Pt Temp 78 H* ABG pO2 at Pt Temp 110 H ABG HCO3 36 H VBG pH VBG HCO3 Potassium Carbon Dioxide Anion Gap BUN Creatinine POC Glucose 259 H 162 H Random Glucose Calcium Phosphorus NT-Pro-B Natriuret Pep Total Protein Albumin HDL Cholesterol 04/20/25 04/20/25 04/20/25 12:02 15:54 21:08 RBC Hgb Hct RDW Immature Gran % (Auto) Neut % (Auto) Lymph % (Auto) Lymph # (Auto) Abs Immat Gran (auto) Absolute Nucleated RBC Nucleated RBC % (auto) ABG pH at Pt Temp ABG pCO2 at Pt Temp ABG pO2 at Pt Temp ABG HCO3 VBG pH 7.50 H VBG HCO3 37 H Potassium Carbon Dioxide Anion Gap BUN Creatinine POC Glucose 176 H 151 H Random Glucose Calcium Phosphorus NT-Pro-B Natriuret Pep Total Protein Albumin HDL Cholesterol 04/20/25 04/21/25 04/21/25 21:33 05:43 07:59 RBC Hgb Hct RDW Immature Gran % (Auto) Neut % (Auto) Lymph % (Auto) Lymph # (Auto) Abs Immat Gran (auto) Absolute Nucleated RBC Nucleated RBC % (auto) ABG pH at Pt Temp ABG pCO2 at Pt Temp ABG pO2 at Pt Temp ABG HCO3 VBG pH VBG HCO3 Potassium Carbon Dioxide 31 H Anion Gap BUN 22 H Creatinine 1.49 H POC Glucose 121 H 118 H Random Glucose 117 H Calcium Phosphorus NT-Pro-B Natriuret Pep Total Protein Albumin HDL Cholesterol 04/21/25 04/21/25 04/21/25 11:23 12:13 15:39 RBC Hgb Hct RDW Immature Gran % (Auto) Neut % (Auto) Lymph % (Auto) Lymph # (Auto) Abs Immat Gran (auto) Absolute Nucleated RBC Nucleated RBC % (auto) ABG pH at Pt Temp 7.48 H ABG pCO2 at Pt Temp 46 H ABG pO2 at Pt Temp 72 L ABG HCO3 35 H VBG pH VBG HCO3 Potassium Carbon Dioxide Anion Gap BUN Creatinine POC Glucose 140 H 149 H Random Glucose Calcium Phosphorus NT-Pro-B Natriuret Pep Total Protein Albumin HDL Cholesterol Assessment and Plan (1) Congestive heart failure: Qualifiers: Heart failure type: systolic Heart failure chronicity: acute on chronic Qualified Code(s): I50.23 - Acute on chronic systolic (congestive) heart failure Status: Acute (2) Acute respiratory failure with hypercapnia: Status: Acute (3) Pleural effusion: Status: Acute (4) Pulmonary edema: Qualifiers: Chronicity: acute Qualified Code(s): J81.0 - Acute pulmonary edema Status: Acute Plan The patient appears to present with acute on chronic hypercarbic and hypoxic respiratory failure with significant pulmonary edema bilateral pleural effusions in the setting of anasarca. Continue diuresis as tolerated Recommend ultrasound-guided thoracentesis for both diagnostic and therapeutic purposes Continue NIV at night 18/8, will benefit from NIV upon discharge Bloodwork Procedures Date of Service Date of Service: 04/21/25
[2025-04-21 19:09] LABS: Total Protein 5.5 g/dL (6.5-8.0)
[2025-04-21 20:10] LABS: Glucose, Whole Blood 136 mg/dL (60-115)
[2025-04-21 23:31] LABS: Glucose, Whole Blood 141 mg/dL (60-115)
[2025-04-22] VITALS (13 sets, daily range): BP systolic 95–128; BP diastolic 44–67; PULSE 85–100; RESP 17–23; TEMP 36.3–37.7; O2SAT 94–100; BMI 29.1
[2025-04-22 06:20] LABS: MANUAL DIFF FLAG NO
[2025-04-22 06:39] LABS: Magnesium 2.1 mg/dL (1.6-2.6)
[2025-04-22 06:43] LABS: INTERNATIONAL NORM RATIO 1.5 (0.9-1.1); Prothrombin Time 17.3 SEC (10.9-12.4)
[2025-04-22 06:48] LABS: Hematocrit 24.4 % (42.0-52.0); Hemoglobin 7.8 g/dl (14.0-18.0); Imm Gran Abs Auto 0.07 X10*3/uL (0.00-0.03); Imm Gran Pct Auto 1.0 % (0.0-0.4); Lymphocytes Absolute Auto 1.0 X10*3/uL (1.2-4.9); Mean Corpuscular HGB Conc 32.0 g/dl (31.0-36.0); Mean Corpuscular Hemoglobin 28.5 pg (27.0-33.0); Mean Corpuscular Volume 89.1 fL (80.0-98.0); NRBC Abs Auto 0.020 X10*3/uL (0.0-0.012); NRBC Pct Auto 0.3 /100WBC (0.0-0.2); Platelet Count 163 X10*3/uL (160-400); Red Blood Count 2.74 X10*6/uL (4.60-5.80); White Blood Count 6.9 X10*3/uL (4.8-10.8)
[2025-04-22 07:28] LABS: Glucose, Whole Blood 119 mg/dL (60-115)
[2025-04-22] MEDS: Lidocaine HCl 1 % MPF 5 ML VIAL SUBCUT (10:57)
[2025-04-22 11:20] LABS: Glucose, Whole Blood 131 mg/dL (60-115)
--- NOTE | 2025-04-22 11:36 | PM.PNCARD ---
Subjective Subjective Date of Service: 04/22/25 Principal diagnosis: CHF, hypercapnic respiratory failure Interval history: Patient has diuresed about 2400 mL over last 24 hours and underwent thoracocentesis with removal of about 1600 mL. He says breathing is similar. MIBI slightly better. He is little more awake. Remains in AFib. No renal profile today. Little drowsy while I was talking to him. Sudden was at the bedside. Review of Systems Constitutional: Reports daytime sleepiness, Reports lethargy and Reports weakness Eyes: Reports no additional eye complaints Cardiovascular: Denies chest pain, Denies rapid heart rate, Denies leg edema, Denies lightheadedness, Denies Loss of Consciousness and Reports dyspnea Respiratory: Reports dyspnea Gastrointestinal: Reports no additional gastrointestinal complaints Reports weakness Physical Exam Vital Signs: Last Vital Signs Temp 98.1 F 04/22/25 07:00 Pulse 97 04/22/25 10:45 Resp 21 H 04/22/25 10:45 BP 95/44 L 04/22/25 10:45 Pulse Ox 100 04/22/25 10:45 O2 Del Method Nasal Cannula 04/22/25 10:45 O2 Flow Rate 2 04/22/25 10:45 FiO2 25 04/17/25 16:00 BMI result Body Mass Index 29.1 Const General: cooperative, no acute distress, alert and awake Nutritional Appearance: overweight Neck Neck: Yes trachea midline and Yes JVD Resp Effort & Inspection: decreased respiratory effort Auscultation: other (Improved breath sounds) Cardio Jugular venous distension: JVD Rhythm: abnormal rhythm irregularly irregular Heart sounds: S1 normal heart sound present, S2 normal heart sound present, no click, no gallops and no murmurs GI Auscultation: normal bowel sounds Skin General skin exam: no rashes or lesions noted and ecchymosis Neuro General: moves all extremities Extrem General: Yes no clubbing, cyanosis or edema Objective Labs and Meds 04/22/25 06:09 04/21/25 18:42 Lab results: Laboratory Results - last 24 hr 04/21/25 04/21/25 04/21/25 12:13 15:39 18:42 WBC RBC Hgb Hct MCV MCH MCHC RDW Plt Count MPV Immature Gran % (Auto) Neut % (Auto) Lymph % (Auto) Treasure % (Auto) Eos % (Auto) Baso % (Auto) Lymph # (Auto) Treasure # (Auto) Eos # (Auto) Baso # (Auto) Abs Immat Gran (auto) Absolute Neuts (auto) Absolute Nucleated RBC Nucleated RBC % (auto) PT INR ABG pH at Pt Temp 7.48 H ABG pCO2 at Pt Temp 46 H ABG pO2 at Pt Temp 72 L ABG HCO3 35 H ABG Base Excess (Actual) 10.6 POC Glucose 149 H Random Glucose 144 H Magnesium Lactate Dehydrogenase 86 L Total Protein 5.5 L 04/21/25 04/21/25 04/22/25 20:06 23:28 05:47 WBC RBC Hgb Hct MCV MCH MCHC RDW Plt Count MPV Immature Gran % (Auto) Neut % (Auto) Lymph % (Auto) Treasure % (Auto) Eos % (Auto) Baso % (Auto) Lymph # (Auto) Treasure # (Auto) Eos # (Auto) Baso # (Auto) Abs Immat Gran (auto) Absolute Neuts (auto) Absolute Nucleated RBC Nucleated RBC % (auto) PT INR ABG pH at Pt Temp ABG pCO2 at Pt Temp ABG pO2 at Pt Temp ABG HCO3 ABG Base Excess (Actual) POC Glucose 136 H 141 H Random Glucose Magnesium 2.1 Lactate Dehydrogenase Total Protein 04/22/25 04/22/25 04/22/25 06:09 07:18 11:08 WBC 6.9 RBC 2.74 L Hgb 7.8 L Hct 24.4 L MCV 89.1 MCH 28.5 MCHC 32.0 RDW 24.5 H Plt Count 163 MPV 10.4 Immature Gran % (Auto) 1.0 H Neut % (Auto) 72.6 Lymph % (Auto) 14.3 L Treasure % (Auto) 10.8 Eos % (Auto) 0.6 Baso % (Auto) 0.7 Lymph # (Auto) 1.0 L Treasure # (Auto) 0.8 Eos # (Auto) 0.0 Baso # (Auto) 0.1 Abs Immat Gran (auto) 0.07 H Absolute Neuts (auto) 5.0 Absolute Nucleated RBC 0.020 H Nucleated RBC % (auto) 0.3 H PT 17.3 H D INR 1.5 H ABG pH at Pt Temp ABG pCO2 at Pt Temp ABG pO2 at Pt Temp ABG HCO3 ABG Base Excess (Actual) POC Glucose 119 H 131 H Random Glucose Magnesium Lactate Dehydrogenase Total Protein Imaging Radiologist's impression: Impressions Chest CT 04/21/25 13:35 IMPRESSION: Pulmonary edema and bilateral large volume pleural effusions. Cardiogenic versus nephrogenic. Subacute fractures at T4, T12 and T2 vertebral bodies. Coronary artery disease and atherosclerosis disease. Cholelithiasis. Fleischner guidelines were followed. Electronically signed by: Jesus Clark MD 04/21/2025 02:01 PM EDT RP Chest X-Ray 04/22/25 10:43 IMPRESSION: Improved pulmonary vascular congestion and right pleural effusion. Decreasing left basilar density and pleural effusion. Cardiomegaly. Electronically signed by: Ruy Whittaker MD 04/22/2025 10:51 AM EDT RP Progress Note: A&P Assessment and plan (1) Acute exacerbation of congestive heart failure: Status: Acute Assessment and Plan: Acute exacerbation of congestive heart failure in his elderly gentleman related to most likely chronic atrial fibrillation with predominantly right heart failure symptoms. CT scan consistent with pulmonary edema but bilateral significant pleural effusion. Underwent thoracocentesis with 1.6 L removal unilaterally. His breathing is similar. He has been diuresing well at this point time. He says he started underlying med has been switch. Check VBG. See below. Check renal function on a daily basis inpatient with IV diuresis. Can switch to IV Bumex 2 mg b.i.d.. Continue maintain strict intake and output chart. Incentive spirometry. Out of bed to chair and PT consultation. Overall prognosis remains guarded. Discussed about management of heart failure in the future to prevent recurrent hospitalization in presence of his son. Continue spironolactone therapy. (2) Persistent atrial fibrillation: Status: Acute Assessment and Plan: Persistent chronic rate control atrial fibrillation. Currently rate controlled without any rate controlling medications. No indication for the same. Continue full oral anticoagulation. (3) Acute respiratory failure with hypercapnia: Status: Acute Assessment and Plan: Acute hypoxemic respiratory failure along with hypercapnia. Component of reduced noncompliance probably related to pleural effusion being tapped. Pulmonary consult recommending noninvasive ventilation at nighttime. Will switch diuretics as above. Will follow with you Time Spent With Patient Time: Total time managing care of this patient today ____ minutes. Progress Note: Quality Stroke Does the patient have a stroke diagnosis?: No Procedures Date of Service Date of Service: 04/22/25
[2025-04-22 12:07] LABS: MN% 87.2 %; PMN% 12.8 %; WBC Pleural Fluid 0.365 X10*3/uL
[2025-04-22 12:10] LABS: BF Shift QC OK YES
[2025-04-22 12:35] LABS: Anion Gap 11 (12-20); Blood Urea Nitrogen 23 mg/dL (9-16); Calcium 8.5 mg/dL (8.4-10.2); Carbon Dioxide 35 mmol/L (22-29); Chloride 100 mmol/L (96-108); Creatinine Clr Calc Pharmacy 45.3; Estimated Glomerular Filt Rate 45; Magnesium 2.0 mg/dL (1.6-2.6); Potassium 3.2 mmol/L (3.3-5.1); Sodium 143 mmol/L (135-145)
[2025-04-22 13:25] LABS: Lymphocytes Pleural Fluid 63 %; Monocytes Pleural Fluid 11 %; Neutrophils Pleural Fluid 8 %; Other Cells Plerual Fl 18 %
--- NOTE | 2025-04-22 14:38 | HO.WOUND ---
Wound Consult: Initial 79 yr old [place] [facility] [place] See progress notes and H&P for detailed history. Wound consult placed for right buttock and nose. Patient agreeable to assessment and photo documentation. Patient noted to have bipap use this admission, now with nocturnal bipap use per patient, patient reports wound to bride of nose from bipap mask. Bridge of nose Etiology: stage 2 pressure injury device related Measurements: 1cm x 0.8cm x 0.1cm Wound Bed: dry red superifical Drainage / Odor: none Edges: ? attached Ashvin wound: ? No Induration, Fluctuance or Warmth noted- blanchable and nonblanchable redness Pain: none Goals of Treatment: ? offloading with use of bipap - protective foam Buttocks Etiology: blanchable redness, right buttock with small linear scratch - not pressure related, not over bony prominence Wound Bed: intact blanchable redness with small linear scratch to right buttock Drainage / Odor: none Ashvin wound: ? No Induration, Fluctuance or Warmth noted Pain: none Goals of Treatment: ? foam dressing for offloading and pressure redistribution Recommendations: 1. Turn and Reposition every 2 hours and as needed for patient comfort. Use pillows or wedges to support off loading positions. 2. Off Load all bony prominences with use of pillows and heel boots if needed. Apply Preventative foams where needed. 3. Monitor for incontinence and moisture control, use barrier creams when needed for prevention and treatment. 4. Provide adequate and supplemental nutrition. 5. Order or Continue low air loss mattress. 6. When applicable maintain blood glucose levels per Providers order. Buttocks: Off Load Pressure with Q2 hr turns and use of pillows - Routine cleansing. Apply skin prep allow to dry. Cover with foam dressing to aid in off loading and protection from friction. Change every 3 days and PRN. Bridge of nose: cleanse with saline, apply skin prep ashvin wound, apply foam (thin foam or bordered foam) to nose with bipap use. Re-consult wound care Nurse for wound deterioration or wound changes.
--- NOTE | 2025-04-22 14:56 | HO.PM.IMPN ---
Subjective Subjective Date of Service: 04/22/25 Interval History: Patient seen examined at bedside this morning, patient states that his breathing has improved, with plans on thoracentesis later today. Continues on IV Lasix drip. Review of Systems Review of Systems: Yes all other systems are reviewed and are negative Physical Exam Exam: Exam: General: AlertxOx3, on supplemental oxygen Head: AT/NC ENT: Moist mucous membranes Neck: supple, JVD CVS; irregular RR, S1 S2 normal Lungs: Decreased bilateral breath sounds Abd: Soft non tender, non distended Ext: SCDs in place MSK: moving all 4 limbs Skin: Sacral edema Psych: Cooperative with exam Neurology: no focal deficit Vital Signs: Vital Signs: Last Vital Signs Temp 99.8 F 04/22/25 13:55 Pulse 96 04/22/25 11:00 Resp 17 04/22/25 11:00 BP 110/51 L 04/22/25 11:00 Pulse Ox 98 04/22/25 11:00 O2 Del Method Nasal Cannula 04/22/25 11:00 O2 Flow Rate 2 04/22/25 11:00 FiO2 25 04/17/25 16:00 BMI result Body Mass Index 29.1 Objective Data Active Medications Acetaminophen (Acetaminophen 325 Mg Tablet) 650 mg PO Q6H PRN PRN Reason: Pain, Mild 1-3,fever,headache Apixaban (Apixaban 2.5 Mg Tablet) 2.5 mg PO BID [facility] Last Admin: 04/22/25 09:15 Dose: Not Given Documented By: JONAS Non-Admin Reason: onhold Aspirin (Aspirin 81 Mg Tab.Chew) 81 mg PO DAILY NANCY On Hold: 04/20/25 12:00 Last Admin: 04/20/25 08:01 Dose: 81 mg Documented By: VENITA Bumetanide (Bumetanide 1 Mg/4 Ml Vial) 2 mg IVPUSH DAILY NANCY; Protocol Calcium Carbonate (Calcium Carbonate 750 Mg Tab.Chew) 750 mg PO Q4H PRN PRN Reason: Heartburn Dextrose (Dextrose 50 % 25 Gm/50 Ml Syringe) 25 gm IVPUSH Q15M PRN; Protocol PRN Reason: per Hypoglycemia Standing Ord. Glucose (Glucose Gel 15 Gm Gel..Gram.) 15 gm PO Q15M PRN; Protocol PRN Reason: per Hypoglycemia Standing Ord. Insulin Human Lispro (Insulin Lispro 100 Unit/Ml 3 Ml Vial) 0 unit SUBCUT QIDACHS [facility]; Protocol Last Admin: 04/22/25 12:11 Dose: Not Given Documented By: JONAS Non-Admin Reason: No Insulin Coverage Magnesium Hydroxide (Milk Of Magnesia 30 Ml Oral.Susp) 30 ml PO DAILY PRN PRN Reason: Constipation Melatonin (Melatonin 3 Mg Tablet) 6 mg PO BEDTIME PRN PRN Reason: Insomnia Last Admin: 04/19/25 21:27 Dose: 6 mg Documented By: ASHLEY Potassium Chloride (Potassium Chloride Packet 20 Meq Packet) 40 meq PO ONCE ONE Stop: 04/23/25 07:01 Sodium Chloride (0.9 % Sodium Chloride Flush 3 Ml Syringe) 3 ml IVFLUSH QSHIFT [facility] Last Admin: 04/22/25 09:21 Dose: Not Given Documented By: JONAS Non-Admin Reason: IV Running Spironolactone (Spironolactone 25 Mg Tablet) 12.5 mg PO DAILY [facility]; Protocol Last Admin: 04/22/25 09:14 Dose: 12.5 mg Documented By: JONAS Tamsulosin HCl (Tamsulosin Hcl 0.4 Mg Capsule) 0.4 mg PO DAILY [facility] Last Admin: 04/22/25 09:14 Dose: 0.4 mg Documented By: JONAS Labs 04/22/25 06:09 04/22/25 12:16 Labs: Laboratory Results - last 24 hr 04/21/25 04/21/25 04/21/25 15:39 18:42 20:06 MCV MCH MCHC RDW Plt Count MPV Immature Gran % (Auto) Neut % (Auto) Lymph % (Auto) Carlton % (Auto) Eos % (Auto) Baso % (Auto) Lymph # (Auto) [place] # (Auto) Eos # (Auto) Baso # (Auto) Abs Immat Gran (auto) Absolute Neuts (auto) Absolute Nucleated RBC Nucleated RBC % (auto) PT INR Anion Gap Estim Creat Clear Calc Estimated GFR POC Glucose 149 H 136 H Random Glucose 144 H Calcium Magnesium Lactate Dehydrogenase 86 L Total Protein 5.5 L Peritoneal pH Peritoneal WBC Peritoneal RBC Periton Neutrophils Periton Lymphocytes Peritoneal Monocytes Peritoneal Eosinophils Peritoneal Basophils Peritoneal Other Cells Peritoneal Tot Protein Peritoneal Albumin Peritoneal LDH Peritoneal Glucose Pleural WBC Pleural RBC Pleural Neutrophils Pleural Lymphocytes Pleural Monocytes Pleural Other Cells 04/21/25 04/22/25 04/22/25 23:28 05:47 06:09 MCV 89.1 MCH 28.5 MCHC 32.0 RDW 24.5 H Plt Count 163 MPV 10.4 Immature Gran % (Auto) 1.0 H Neut % (Auto) 72.6 Lymph % (Auto) 14.3 L Carlton % (Auto) 10.8 Eos % (Auto) 0.6 Baso % (Auto) 0.7 Lymph # (Auto) 1.0 L [place] # (Auto) 0.8 Eos # (Auto) 0.0 Baso # (Auto) 0.1 Abs Immat Gran (auto) 0.07 H Absolute Neuts (auto) 5.0 Absolute Nucleated RBC 0.020 H Nucleated RBC % (auto) 0.3 H PT 17.3 H D INR 1.5 H Anion Gap Estim Creat Clear Calc Estimated GFR POC Glucose 141 H Random Glucose Calcium Magnesium 2.1 Lactate Dehydrogenase Total Protein Peritoneal pH Peritoneal WBC Peritoneal RBC Periton Neutrophils Periton Lymphocytes Peritoneal Monocytes Peritoneal Eosinophils Peritoneal Basophils Peritoneal Other Cells Peritoneal Tot Protein Peritoneal Albumin Peritoneal LDH Peritoneal Glucose Pleural WBC Pleural RBC Pleural Neutrophils Pleural Lymphocytes Pleural Monocytes Pleural Other Cells 04/22/25 04/22/25 04/22/25 07:18 10:36 11:08 MCV MCH MCHC RDW Plt Count MPV Immature Gran % (Auto) Neut % (Auto) Lymph % (Auto) [place] % (Auto) Eos % (Auto) Baso % (Auto) Lymph # (Auto) [place] # (Auto) Eos # (Auto) Baso # (Auto) Abs Immat Gran (auto) Absolute Neuts (auto) Absolute Nucleated RBC Nucleated RBC % (auto) PT INR Anion Gap Estim Creat Clear Calc Estimated GFR POC Glucose 119 H 131 H Random Glucose Calcium Magnesium Lactate Dehydrogenase Total Protein Peritoneal pH Cancelled Peritoneal WBC Cancelled Peritoneal RBC Cancelled Periton Neutrophils Cancelled Periton Lymphocytes Cancelled Peritoneal Monocytes Cancelled Peritoneal Eosinophils Cancelled Peritoneal Basophils Cancelled Peritoneal Other Cells Cancelled Peritoneal Tot Protein Cancelled Peritoneal Albumin Cancelled Peritoneal LDH Cancelled Peritoneal Glucose Cancelled Pleural WBC 0.365 Pleural RBC 0.002 Pleural Neutrophils 8 Pleural Lymphocytes 63 Pleural Monocytes 11 Pleural Other Cells 18 04/22/25 12:16 MCV MCH MCHC RDW Plt Count MPV Immature Gran % (Auto) Neut % (Auto) Lymph % (Auto) [place] % (Auto) Eos % (Auto) Baso % (Auto) Lymph # (Auto) [place] # (Auto) Eos # (Auto) Baso # (Auto) Abs Immat Gran (auto) Absolute Neuts (auto) Absolute Nucleated RBC Nucleated RBC % (auto) PT INR Anion Gap 11 L Estim Creat Clear Calc 45.3 Estimated GFR 45 POC Glucose Random Glucose 146 H Calcium 8.5 Magnesium 2.0 Lactate Dehydrogenase Total Protein Peritoneal pH Peritoneal WBC Peritoneal RBC Periton Neutrophils Periton Lymphocytes Peritoneal Monocytes Peritoneal Eosinophils Peritoneal Basophils Peritoneal Other Cells Peritoneal Tot Protein Peritoneal Albumin Peritoneal LDH Peritoneal Glucose Pleural WBC Pleural RBC Pleural Neutrophils Pleural Lymphocytes Pleural Monocytes Pleural Other Cells Microbiology Microbiology Results: Microbiology 04/22/25 10:36 Gram Stain - Final Pleura Assessment and Plan (1) Congestive heart failure: Status: Acute (2) Type 2 diabetes mellitus without complication, with no history of insulin use: Status: Acute (3) Acute respiratory failure with hypercapnia: Status: Acute (4) Pleural effusion: Status: Acute Plan Assessment: 79-year-old male who presented to hospital for shortness of breath. Found to be in acute hypoxic respiratory failure after discontinuing his diuretics. The ED found to be in heart failure exacerbation requiring BiPAP and IV diuretics. Recently downgraded from the ICU. Once intubated from the ICU, patient on supplemental oxygen, patient developed worsening mental status, continued with positive fluid balance, placed on lasix drip on 04/20. Metabolic encephalopthy secondary to CO2 retention, improved Acute heart failure exacerbation, improving Bilateral pleural effusions, with plans for right thora today HFpEF w/ EF 50-55% seen on TTE on 04/16 -per patient, was not taking diuretics at home for the past 2 weeks. -will switch lasix drip to bumex IV BID -Pulm consulted and following -plans on right sided thoracentesis today, will fluid studies, will plan for left sided thoracentesis. -continue incentive spirometer -Cardiology following -Fluid restriction -will monitor kidney function given I and O Persistent atrial fibrillation -EKG reviewed with AFib -continue with Eliquis 2.5 mg b.i.d. -Place on telemetry -Cardiology consulted and following Chronic kidney disease We will closely monitor creatinine function, continue with IV diuretics, avoid nephrotoxic medication and renally adjust medications T2DM, chronic Insulin sliding scale, to maintain glucose between 140-180 mg/dL Will adjust medications accordingly BPH -continue with tamsulosin, monitor for any signs of retention. Hypertension, chronic Anemia of chronic disease Monitor for any signs of bleeding, hematuria, melena Transfuse for hemoglobin less than 7-8 Ambulatory dysfunction Generalized weakness Continue PT/OT as able, fall precautions Dysphagia -SUPERVISOR [employer] consulted, suggested on chopped/advanced with nectar thick liquids, pills whole in puree. FEN: Fluid restriction, replete as needed, cardiac low salt diet GI PPx: not indicated DVT PPx: Eliquis DISCLAIMER: This document was created using voice recognition software. Any mistakes in the prescription are unintentional. An attempt was made to focus for accuracy, but to expedite availability, some errors may persist. Please contact with any need for correction or further clarification. Quality Stroke Does the patient have a stroke diagnosis?: No VTE Prior VTE?: No VTE Risk Level:: Medical - moderate - high VTE Device Contraindication: Treatment Not Indicated VTE Drug Contraindication: N/A - Med Ordered
[2025-04-22] MEDS: Potassium Chloride Packet 20 MEQ PACKET 40 MEQ PO (15:31)
[2025-04-22 15:59] LABS: Total Protein 5.3 g/dL (6.5-8.0)
[2025-04-22] MEDS: 0.9 % Sodium Chloride Flush 3 ML SYRINGE IVFLUSH ×2 (16:39→21:16)
[2025-04-22 17:03] LABS: Glucose, Whole Blood 231 mg/dL (60-115)
--- NOTE | 2025-04-22 17:43 | MHC.SL.SWA ---
Speech Pathologist Impression: Risk of Aspiration Due to: Mild Pharyngeal Phase of swallow, HX aspiration, vulnerable respiratory system Dysphasia Diet Status: Liquid Consistency and Strategies for Safe Swallow: Liquid Intake Recommendation: [place] Thick Liquid Intake Strategies: Solid Food Consistency: Dietary Recommendations: Chopped/Advanced (NDD3) Additional Modifications to Solid Foods: Oral Medication Intake: Whole with Puree Please contact the pharmacy regarding appropriate crushable or liquid drug formulations that are available whenever modified delivery is recommended. Compensatory Strategies and Precautions to be Taken for Safe Swallow: Supervision While Eating and Drinking for Safe Swallow: Direct Supervision (1:1) Foods to Avoid: Mixed consistencies Swallowing Recommended Treatments: Recommendation for Speech: Inpatient Speech Therapy Comment: Patient presents with mild pharyngeal phase dysphagia, with absent swallow trigger, reduced and unilaterally uneven laryngeal elevation (R v. L). Recommend START diet of Chopped/Advanced with NECTAR THICK liquids, pills whole with liquid. Patient will require assistance with opening items on tray and should be supervised during meal due to history of aspiration risk. MD/RD notified of recommendations by secure text, RN in Person. SAXOPHONE TEACHER will continue to follow. Frequency/Duration: Date Range for Service Req: Timeline to reassess: Overhead Crane Inspector Clinican/Clinical Fellow: No Supervisory Statement: I have reviewed and agree with the student/clinical fellow's documentation: N/A Speech Language Pathologist: Alicia San M.A., CCC-SAXOPHONE TEACHER
[2025-04-22 20:50] LABS: Glucose, Whole Blood 231 mg/dL (60-115)
[2025-04-22] MEDS: Bumetanide 1 MG/4 ML VIAL 2 MG IVPUSH (21:05)
[2025-04-23] VITALS (12 sets, daily range): BP systolic 92–135; BP diastolic 50–71; PULSE 79–104; RESP 16–22; TEMP 36.3–36.8; O2SAT 95–100; BMI 29.5
[2025-04-23] MEDS: Potassium Chloride Packet 20 MEQ PACKET 40 MEQ PO (06:03)
[2025-04-23] MEDS: Milk of Magnesia 30 ML ORAL.SUSP PO (06:03)
[2025-04-23 07:33] LABS: INTERNATIONAL NORM RATIO 1.3 (0.9-1.1); Prothrombin Time 15.2 SEC (10.9-12.4)
[2025-04-23 07:34] LABS: Anion Gap 12 (12-20); Blood Urea Nitrogen 25 mg/dL (9-16); Calcium 8.9 mg/dL (8.4-10.2); Carbon Dioxide 34 mmol/L (22-29); Chloride 102 mmol/L (96-108); Creatinine Clr Calc Pharmacy 43.8; Estimated Glomerular Filt Rate 43; Magnesium 2.1 mg/dL (1.6-2.6); Potassium 3.8 mmol/L (3.3-5.1); Sodium 144 mmol/L (135-145)
[2025-04-23 08:03] LABS: Glucose, Whole Blood 159 mg/dL (60-115)
--- NOTE | 2025-04-23 10:13 | HO.RADPN ---
RADIOLOGY Narrative Narrative: Left thoracentesis using 4 fr yeuh catheter. 1.1 L clear yellow fluid removed. Diagnostic specimen sent. CXR pending.
[2025-04-23] MEDS: Lidocaine HCl 1 % MPF 5 ML VIAL SUBCUT (10:56)
[2025-04-23] MEDS: Bumetanide 1 MG/4 ML VIAL 2 MG IVPUSH (10:57)
[2025-04-23] MEDS: 0.9 % Sodium Chloride Flush 3 ML SYRINGE IVFLUSH ×3 (10:57→22:24)
[2025-04-23 11:21] LABS: Glucose, Whole Blood 143 mg/dL (60-115)
[2025-04-23 12:34] LABS: MN% 85.7 %; PMN% 14.3 %; WBC Pleural Fluid 0.246 X10*3/uL
[2025-04-23] MEDS: Erythromycin Base 0.5% Oph Oin 1 GM TUBE 1 CM EYE-BOTH ×3 (12:47→21:56)
[2025-04-23 13:29] LABS: BF Shift QC OK YES; Lymphocytes Pleural Fluid 38 %; Monocytes Pleural Fluid 34 %; Neutrophils Pleural Fluid 13 %; Other Cells Plerual Fl 15 %
--- NOTE | 2025-04-23 14:14 | MHC.SLORD ---
Speech Language Pathology Order Status: Pt not seen 04/23 d/t procedure. See notes. RETAIL TEAM LEADER following.
--- NOTE | 2025-04-23 14:34 | HO.PM.IMPN ---
Subjective Subjective Date of Service: 04/23/25 Interval History: s/p thoracentesis L, 1.1L today; had R-sided done with 1.6L yesterday dyspnea improving no chest pain Physical Exam Vital Signs: Vital Signs: Last Vital Signs Temp 97.6 F 04/23/25 11:30 Pulse 89 04/23/25 11:30 Resp 16 04/23/25 11:30 BP 135/62 04/23/25 11:30 Pulse Ox 100 04/23/25 11:30 O2 Del Method Nasal Cannula 04/23/25 11:30 O2 Flow Rate 1.5 04/23/25 11:30 FiO2 25 04/17/25 16:00 BMI result Body Mass Index 29.5 Gen: in no acute distress HEENT: sclera anicteric, moist mucus membranes Neck: supple Lungs: diminished bases bilaterally Heart: irregular, no murmurs Abd: soft, non-tender, non-distended Ext: no edema Skin: warm/well-perfused Neuro: alert and oriented x3, no focal findings Psych: appropriate affect Objective Data Active Medications Acetaminophen (Acetaminophen 325 Mg Tablet) 650 mg PO Q6H PRN PRN Reason: Pain, Mild 1-3,fever,headache Apixaban (Apixaban 2.5 Mg Tablet) 2.5 mg PO BID [facility] Last Admin: 04/23/25 10:58 Dose: 2.5 mg Documented By: MIGEL Aspirin (Aspirin 81 Mg Tab.Chew) 81 mg PO DAILY [facility] On Hold: 04/20/25 12:00 Last Admin: 04/20/25 08:01 Dose: 81 mg Documented By: VENITA Bumetanide (Bumetanide 1 Mg/4 Ml Vial) 2 mg IVPUSH DAILY [facility]; Protocol Last Admin: 04/23/25 10:57 Dose: 2 mg Documented By: MIGEL Calcium Carbonate (Calcium Carbonate 750 Mg Tab.Chew) 750 mg PO Q4H PRN PRN Reason: Heartburn Dextrose (Dextrose 50 % 25 Gm/50 Ml Syringe) 25 gm IVPUSH Q15M PRN; Protocol PRN Reason: per Hypoglycemia Standing Ord. Erythromycin (Erythromycin Base 0.5% Oph Oin 1 Gm Tube) 1 cm EYE-BOTH QID NANCY Last Admin: 04/23/25 12:47 Dose: 1 cm Documented By: MIGEL Glucose (Glucose Gel 15 Gm Gel..Gram.) 15 gm PO Q15M PRN; Protocol PRN Reason: per Hypoglycemia Standing Ord. Insulin Human Lispro (Insulin Lispro 100 Unit/Ml 3 Ml Vial) 0 unit SUBCUT QIDACHS [facility]; Protocol Last Admin: 04/23/25 10:58 Dose: Not Given Documented By: MIGEL Non-Admin Reason: No Insulin Coverage Magnesium Hydroxide (Milk Of Magnesia 30 Ml Oral.Susp) 30 ml PO DAILY PRN PRN Reason: Constipation Last Admin: 04/23/25 06:03 Dose: 30 ml Documented By: CORRIE Melatonin (Melatonin 3 Mg Tablet) 6 mg PO BEDTIME PRN PRN Reason: Insomnia Last Admin: 04/19/25 21:27 Dose: 6 mg Documented By: ASHLEY Sodium Chloride (0.9 % Sodium Chloride Flush 3 Ml Syringe) 3 ml IVFLUSH QSHIFT [facility] Last Admin: 04/23/25 10:57 Dose: 3 ml Documented By: MIGEL Spironolactone (Spironolactone 25 Mg Tablet) 12.5 mg PO DAILY [facility]; Protocol Last Admin: 04/23/25 10:57 Dose: 12.5 mg Documented By: MIGEL Tamsulosin HCl (Tamsulosin Hcl 0.4 Mg Capsule) 0.4 mg PO DAILY [facility] Last Admin: 04/23/25 10:58 Dose: 0.4 mg Documented By: MIGEL Labs 04/22/25 06:09 04/23/25 07:12 Labs: Laboratory Results - last 24 hr 04/21/25 04/22/25 04/22/25 12:13 12:16 16:27 Hold Purple Top PT INR O2 Saturation TNP Anion Gap Estim Creat Clear Calc Estimated GFR POC Glucose 231 H Random Glucose Calcium Magnesium Lactate Dehydrogenase 97 L Total Protein 5.3 L Pleural WBC Pleural RBC Pleural Neutrophils Pleural Lymphocytes Pleural Monocytes Pleural Other Cells 04/22/25 04/23/25 04/23/25 20:39 07:12 07:59 Hold Purple Top SEE NOTE PT 15.2 H INR 1.3 H O2 Saturation Anion Gap 12 Estim Creat Clear Calc 43.8 Estimated GFR 43 POC Glucose 231 H 159 H Random Glucose 164 H Calcium 8.9 Magnesium 2.1 Lactate Dehydrogenase Total Protein Pleural WBC Pleural RBC Pleural Neutrophils Pleural Lymphocytes Pleural Monocytes Pleural Other Cells 10/22/25 10/22/25 10:26 10:55 Hold Purple Top PT INR O2 Saturation Anion Gap Estim Creat Clear Calc Estimated GFR POC Glucose 143 H Random Glucose Calcium Magnesium Lactate Dehydrogenase Total Protein Pleural WBC 0.246 Pleural RBC < 0.002 Pleural Neutrophils 13 Pleural Lymphocytes 38 Pleural Monocytes 34 Pleural Other Cells 15 Microbiology Microbiology Results: Microbiology 04/22/25 10:36 Gram Stain - Final Pleura Anaerobic Culture - Preliminary No growth to date. Body Fluid Culture - Preliminary No growth after 1 day Assessment and Plan (1) Congestive heart failure: Status: Acute (2) Type 2 diabetes mellitus without complication, with no history of insulin use: Status: Acute (3) Acute respiratory failure with hypercapnia: Status: Acute (4) Pleural effusion: Status: Acute Plan d8, 79yo M with AF on apixaban, HFrEF, HTN, DM2 presenting with dyspnea, admitted for hypoxia due to CHF exacerbation after discontinuing diuretic at the advise of his discovery manager. Briefly in ICU on BiPAP 04/17-04/18 then stepped down to telemetry unit and placed on furosemide drip. Also found to have hypercarbic respiratory failure acute/chronic HF with recovered EF - continue IV bumetanide; overall net negative 6.3L this admission; Cardiology following; monitor lytes, NT-proBNP, I/O; continue spironolactone acute/chronic hypoxic/hypercarbic respiratory failure - BiPAP at night, will need upon discharge bilateral pleural effusions - tapped 1.6L on R 04/22, 1.1L on L 04/23; follow fluid chemistries dysphagia - ENVIRONMENTAL ASSISTANT: NDD3 solids, nectar liquids persistent AF: apixaban, rate-controlled CKD3: SCr near baseline anemia of CKD: monitor H+H DM2: correction-dose lispro BPH: tamsulosin VTE ppx: apixaban dispo: STR In my clinical judgment, the patient requires continued inpatient hospitalization for the following reasons: IV diuresis Total time managing care of this patient today: 45 minutes. Quality Stroke Does the patient have a stroke diagnosis?: No VTE Prior VTE?: No VTE Risk Level:: Medical - moderate - high VTE Device Contraindication: Treatment Not Indicated VTE Drug Contraindication: N/A - Med Ordered
--- NOTE | 2025-04-23 15:03 | MHC.CM.PN ---
EMR REVIEWED, PT/OT RECOMMENDING STR, CM MET W/PT AND SON AT BEDSIDE AND THEY REPORT PT WAS DENIED STR BY INSURANCE LAST VISIT HOWEVER THEY WOULD LIKE TO TRY AGAIN PT LIVES ALONE AND IS INDEP AT BASELINE, PREFERRED FACILITIES ARE [place], SON/PT AGREEABLE TO PLACEMENT NEAR [place] THAT IS WHERE PT'S DTR LIVES, REF PLACED AND CM WILL CONT TO FOLLOW BED OFFER AND DC NEEDS.
[2025-04-23 16:26] LABS: Glucose, Whole Blood 268 mg/dL (60-115)
--- NOTE | 2025-04-23 16:58 | PM.PNCARD ---
Subjective Subjective Date of Service: 04/23/25 Principal diagnosis: CHF, hypercapnic respiratory failure Interval history: Patient's hypoxemia seems to be improving. He said his shortness of breath has improved. No significant leg edema. Underwent thoracocentesis with 1.1 L of fluid removed. No chest pain. Remains in AFib with controlled rate Review of Systems Constitutional: Reports fatigue, Reports lethargy and Reports weakness Eyes: Reports no additional eye complaints Cardiovascular: Denies chest pain, Denies leg edema, Denies palpitations and Reports dyspnea (Improving) Respiratory: Reports dyspnea (Improving) Gastrointestinal: Reports no additional gastrointestinal complaints Reports system reviewed and no additional complaints, except as documented and Reports weakness Endocrine: Reports fatigue and Denies palpitations Physical Exam Vital Signs: Last Vital Signs Temp 97.6 F 04/23/25 15:47 Pulse 93 04/23/25 15:47 Resp 18 04/23/25 15:47 BP 109/55 L 04/23/25 15:47 Pulse Ox 100 04/23/25 15:47 O2 Del Method Nasal Cannula 04/23/25 15:47 O2 Flow Rate 1.5 04/23/25 15:47 FiO2 25 04/17/25 16:00 BMI result Body Mass Index 29.5 Const General: cooperative, no acute distress, alert and awake Nutritional Appearance: overweight Neck Neck: Yes trachea midline and Yes JVD Resp Effort & Inspection: decreased respiratory effort Auscultation: no rales, no wheezes and diminished lung sounds Cardio Jugular venous distension: JVD Rhythm: abnormal rhythm irregularly irregular Heart sounds: S1 normal heart sound present, S2 normal heart sound present, no click, no gallops and no murmurs GI Auscultation: normal bowel sounds Skin General skin exam: no rashes or lesions noted and ecchymosis Neuro General: moves all extremities Extrem General: Yes no clubbing, cyanosis or edema Objective Labs and Meds 04/22/25 06:09 04/23/25 07:12 Lab results: Laboratory Results - last 24 hr 04/21/25 04/22/25 04/22/25 12:13 16:27 20:39 Hold Purple Top PT INR O2 Saturation TNP Sodium Potassium Chloride Carbon Dioxide Anion Gap BUN Creatinine Estim Creat Clear Calc Estimated GFR POC Glucose 231 H 231 H Random Glucose Calcium Magnesium Lactate Dehydrogenase Pleural WBC Pleural RBC Pleural Neutrophils Pleural Lymphocytes Pleural Monocytes Pleural Other Cells 04/23/25 04/23/25 04/23/25 07:12 07:59 10:26 Hold Purple Top SEE NOTE PT 15.2 H INR 1.3 H O2 Saturation Sodium 144 Potassium 3.8 Chloride 102 Carbon Dioxide 34 H Anion Gap 12 BUN 25 H Creatinine 1.56 H Estim Creat Clear Calc 43.8 Estimated GFR 43 POC Glucose 159 H Random Glucose 164 H Calcium 8.9 Magnesium 2.1 Lactate Dehydrogenase 144 Pleural WBC 0.246 Pleural RBC < 0.002 Pleural Neutrophils 13 Pleural Lymphocytes 38 Pleural Monocytes 34 Pleural Other Cells 15 04/23/25 04/23/25 10:55 16:19 Hold Purple Top PT INR O2 Saturation Sodium Potassium Chloride Carbon Dioxide Anion Gap BUN Creatinine Estim Creat Clear Calc Estimated GFR POC Glucose 143 H 268 H Random Glucose Calcium Magnesium Lactate Dehydrogenase Pleural WBC Pleural RBC Pleural Neutrophils Pleural Lymphocytes Pleural Monocytes Pleural Other Cells Imaging Radiologist's impression: Impressions Thoracentesis Ultrasound 04/23/25 09:09 IMPRESSION: Ultrasound-guided left thoracentesis. Electronically signed by: Leda Dhillon MD 04/23/2025 10:59 AM EDT Chest X-Ray 04/23/25 10:04 IMPRESSION: Small left pleural effusion, decreased from the prior study. Improving left basilar opacity. Persistent mild right basilar opacity, small pleural effusion. Electronically signed by: Micah Melo MD 04/23/2025 10:26 AM EDT Progress Note: A&P Assessment and plan (1) Acute exacerbation of congestive heart failure: Status: Acute Assessment and Plan: Acute congestive heart failure doing clinically well. Can switch to p.o. Bumex starting tomorrow. Heart failure management was discussed with him. Advised additional diuretics is at home when he develops weight gain or extra fluid suggested include abdominal distension or leg edema or worsening shortness of breath to avoid hospitalization. He showed understanding. Continue spironolactone therapy. Overall prognosis is guarded. He still seems to be a little drowsy. Consider repeating VBG to assess for CO2 retention. (2) Persistent atrial fibrillation: Status: Acute Assessment and Plan: Chronic persistent atrial fibrillation rate controlled. Continue low-dose Eliquis therapy for anticoagulation. No need for additional rate control therapy due to control rate. Will sign of the case and follow as outpatient. Time Spent With Patient Time: Total time managing care of this patient today ____ minutes. Progress Note: Quality Stroke Does the patient have a stroke diagnosis?: No Procedures Date of Service Date of Service: 04/23/25
[2025-04-23 20:55] LABS: Glucose, Whole Blood 259 mg/dL (60-115)
[2025-04-24] VITALS (7 sets, daily range): BP systolic 102–129; BP diastolic 49–60; PULSE 83–98; RESP 16–20; TEMP 36.5–37.1; O2SAT 92–100; BMI 27.8
[2025-04-24] MEDS: Milk of Magnesia 30 ML ORAL.SUSP PO ×2 (03:37→08:51)
[2025-04-24 06:50] LABS: MANUAL DIFF FLAG NO; Venous Blood Gas Refer to POC result
[2025-04-24 06:50] LABS: VBG HCO3 41 mmol/L (22-26); VBG O2 % Saturation 93.0 %
[2025-04-24 07:02] LABS: Hematocrit 25.4 % (42.0-52.0); Hemoglobin 7.7 g/dl (14.0-18.0); Imm Gran Abs Auto 0.03 X10*3/uL (0.00-0.03); Imm Gran Pct Auto 0.6 % (0.0-0.4); Lymphocytes Absolute Auto 0.9 X10*3/uL (1.2-4.9); Mean Corpuscular HGB Conc 30.3 g/dl (31.0-36.0); Mean Corpuscular Hemoglobin 27.6 pg (27.0-33.0); Mean Corpuscular Volume 91.0 fL (80.0-98.0); NRBC Abs Auto 0.000 X10*3/uL (0.0-0.012); NRBC Pct Auto 0.0 /100WBC (0.0-0.2); Platelet Count 141 X10*3/uL (160-400); Red Blood Count 2.79 X10*6/uL (4.60-5.80); White Blood Count 5.4 X10*3/uL (4.8-10.8)
[2025-04-24 07:05] LABS: Albumin Pleural Fluid 1.5
[2025-04-24 07:38] LABS: Anion Gap 12 (12-20); Blood Urea Nitrogen 24 mg/dL (9-16); Calcium 8.5 mg/dL (8.4-10.2); Carbon Dioxide 35 mmol/L (22-29); Chloride 101 mmol/L (96-108); Creatinine Clr Calc Pharmacy 43.5; Estimated Glomerular Filt Rate 44; Magnesium 2.4 mg/dL (1.6-2.6); Potassium 3.6 mmol/L (3.3-5.1); Sodium 144 mmol/L (135-145)
[2025-04-24 07:52] LABS: NT Pro B Type Natriuretic Pept 2222.9 pg/mL (<300)
[2025-04-24 07:53] LABS: Glucose, Whole Blood 136 mg/dL (60-115)
[2025-04-24] MEDS: Erythromycin Base 0.5% Oph Oin 1 GM TUBE 1 CM EYE-BOTH ×4 (08:38→20:58)
[2025-04-24] MEDS: 0.9 % Sodium Chloride Flush 3 ML SYRINGE IVFLUSH ×3 (08:38→20:57)
--- NOTE | 2025-04-24 10:14 | PM.PNCARD ---
Subjective Subjective Date of Service: 04/24/25 Principal diagnosis: CHF, hypercapnic respiratory failure Interval history: Patient is much more awake. Has diuresed well. Breathing better. Atrial fibrillation remained rate controlled. Currently on p.o. Bumex. Review of Systems Constitutional: Reports weakness Cardiovascular: Reports no additional cardiovascular complaints Respiratory: Reports no additional respiratory complaints Gastrointestinal: Reports no additional gastrointestinal complaints Reports system reviewed and no additional complaints, except as documented and Reports weakness Endocrine: Reports no additional endocrine complaints Physical Exam Vital Signs: Last Vital Signs Temp 98.5 F 04/24/25 07:35 Pulse 91 04/24/25 07:35 Resp 16 04/24/25 07:35 BP 129/49 L 04/24/25 08:38 Pulse Ox 99 04/24/25 07:35 O2 Del Method Nasal Cannula 04/24/25 07:35 O2 Flow Rate 1.5 04/24/25 07:35 FiO2 24 04/23/25 23:45 BMI result Body Mass Index 27.8 Const General: cooperative, no acute distress, alert and awake Nutritional Appearance: overweight Neck Neck: Yes trachea midline and Yes JVD Resp Effort & Inspection: decreased respiratory effort Auscultation: no rales, no wheezes and diminished lung sounds Cardio Jugular venous distension: JVD Rhythm: abnormal rhythm irregularly irregular Heart sounds: S1 normal heart sound present, S2 normal heart sound present, no click, no gallops and no murmurs GI Auscultation: normal bowel sounds Skin General skin exam: no rashes or lesions noted and ecchymosis Neuro General: moves all extremities Extrem General: Yes no clubbing, cyanosis or edema Objective Labs and Meds 04/24/25 06:40 04/24/25 06:40 Lab results: Laboratory Results - last 24 hr 04/22/25 04/23/25 04/23/25 10:36 07:12 10:26 WBC RBC Hgb Hct MCV MCH MCHC RDW Plt Count MPV Immature Gran % (Auto) Neut % (Auto) Lymph % (Auto) [place] % (Auto) Eos % (Auto) Baso % (Auto) Lymph # (Auto) [place] # (Auto) Eos # (Auto) Baso # (Auto) Abs Immat Gran (auto) Absolute Neuts (auto) Absolute Nucleated RBC Nucleated RBC % (auto) VBG pH VBG pCO2 VBG pO2 VBG HCO3 VBG O2 Saturation VBG Base Excess Sodium Potassium Chloride Carbon Dioxide Anion Gap BUN Creatinine Estim Creat Clear Calc Estimated GFR POC Glucose Random Glucose Calcium Magnesium Lactate Dehydrogenase 144 NT-Pro-B Natriuret Pep Pleural pH 7.51 Pleural WBC 0.246 Pleural RBC < 0.002 Pleural Neutrophils 13 Pleural Lymphocytes 38 Pleural Monocytes 34 Pleural Other Cells 15 Pleural Total Protein 1.9 Pleural Albumin 1.5 Pleural LDH 49 Pleural Glucose 134 04/23/25 04/23/25 04/23/25 10:55 16:19 20:46 WBC RBC Hgb Hct MCV MCH MCHC RDW Plt Count MPV Immature Gran % (Auto) Neut % (Auto) Lymph % (Auto) [place] % (Auto) Eos % (Auto) Baso % (Auto) Lymph # (Auto) [place] # (Auto) Eos # (Auto) Baso # (Auto) Abs Immat Gran (auto) Absolute Neuts (auto) Absolute Nucleated RBC Nucleated RBC % (auto) VBG pH VBG pCO2 VBG pO2 VBG HCO3 VBG O2 Saturation VBG Base Excess Sodium Potassium Chloride Carbon Dioxide Anion Gap BUN Creatinine Estim Creat Clear Calc Estimated GFR POC Glucose 143 H 268 H 259 H Random Glucose Calcium Magnesium Lactate Dehydrogenase NT-Pro-B Natriuret Pep Pleural pH Pleural WBC Pleural RBC Pleural Neutrophils Pleural Lymphocytes Pleural Monocytes Pleural Other Cells Pleural Total Protein Pleural Albumin Pleural LDH Pleural Glucose 04/24/25 04/24/25 04/24/25 06:40 06:47 07:48 WBC 5.4 RBC 2.79 L Hgb 7.7 L Hct 25.4 L MCV 91.0 MCH 27.6 MCHC 30.3 L RDW 24.2 H Plt Count 141 L MPV TNP Immature Gran % (Auto) 0.6 H Neut % (Auto) 70.1 Lymph % (Auto) 17.3 L [place] % (Auto) 10.1 Eos % (Auto) 1.3 Baso % (Auto) 0.6 Lymph # (Auto) 0.9 L [place] # (Auto) 0.6 Eos # (Auto) 0.1 Baso # (Auto) 0.0 Abs Immat Gran (auto) 0.03 Absolute Neuts (auto) 3.8 Absolute Nucleated RBC 0.000 Nucleated RBC % (auto) 0.0 VBG pH 7.40 VBG pCO2 65 VBG pO2 67 VBG HCO3 41 H VBG O2 Saturation 93.0 VBG Base Excess 14.2 Sodium 144 Potassium 3.6 Chloride 101 Carbon Dioxide 35 H Anion Gap 12 BUN 24 H Creatinine 1.53 H Estim Creat Clear Calc 43.5 Estimated GFR 44 POC Glucose 136 H Random Glucose 148 H Calcium 8.5 Magnesium 2.4 Lactate Dehydrogenase NT-Pro-B Natriuret Pep 2222.9 H Pleural pH Pleural WBC Pleural RBC Pleural Neutrophils Pleural Lymphocytes Pleural Monocytes Pleural Other Cells Pleural Total Protein Pleural Albumin Pleural LDH Pleural Glucose Imaging Radiologist's impression: Impressions Thoracentesis Ultrasound 04/23/25 09:09 IMPRESSION: Ultrasound-guided left thoracentesis. Electronically signed by: Leda Dhillon MD 04/23/2025 10:59 AM EDT RP Chest X-Ray 04/23/25 10:04 IMPRESSION: Small left pleural effusion, decreased from the prior study. Improving left basilar opacity. Persistent mild right basilar opacity, small pleural effusion. Electronically signed by: Micah Melo MD 04/23/2025 10:26 AM EDT RP Chest X-Ray 04/24/25 07:53 IMPRESSION: Pulmonary edema and bilateral pleural effusions right greater than left side. Overall worsening since prior exam. No gross pneumothorax. Electronically signed by: Jesus Clark MD 04/24/2025 08:13 AM EDT RP Progress Note: A&P Assessment and plan (1) Acute exacerbation of congestive heart failure: Status: Acute Assessment and Plan: Acute decompensated congestive heart failure doing clinically a lot better status post bilateral thoracocentesis. Still probably read risk for retaining carbon dioxide. Getting evaluation for home BiPAP therapy at nighttime. Continue oral diuretics with bumetanide 2 mg daily. Also low-dose spironolactone therapy. Management of heart failure was discussed. I have discussed that renal function is important but not the sole criteria for determining with holding off his diuretic therapy as outpatient in his call or office to get further guidance. Daily weight monitoring avoidance salt loading was discussed additional diuretics as need be. Incentive spirometry needs to be pursued. Ambulation as tolerated. Will follow up in the clinic in 7-10 days. (2) Persistent atrial fibrillation: Status: Acute Assessment and Plan: Persistent rate control atrial fibrillation. Clinically rate controlled at this point time. Continue full oral anticoagulation with Eliquis. Patient planned to be discharged today. Will sign of the case. Thank you for allowing me to partake in his care Time Spent With Patient Time: Total time managing care of this patient today ____ minutes. Progress Note: Quality Stroke Does the patient have a stroke diagnosis?: No Procedures Date of Service Date of Service: 04/24/25
[2025-04-24 10:16] LABS: ABG HCO3 30 mmol/L (22-26)
--- NOTE | 2025-04-24 10:17 | P.PNIM_ITS ---
Subjective Subjective Date of Service: 04/24/25 Interval History: dyspnea improving no chest pain Review of Systems Review of Systems: Yes all other systems are reviewed and are negative Physical Exam 2 Vital Signs: Vital Signs: Last Vital Signs Temp 98.5 F 04/24/25 07:35 Pulse 91 04/24/25 07:35 Resp 16 04/24/25 07:35 BP 129/49 L 04/24/25 08:38 Pulse Ox 99 04/24/25 07:35 O2 Del Method Nasal Cannula 04/24/25 07:35 O2 Flow Rate 1.5 04/24/25 07:35 FiO2 24 04/23/25 23:45 BMI result Body Mass Index 27.8 Gen: in no acute distress HEENT: sclera anicteric, moist mucus membranes Neck: supple Lungs: diminished bases bilaterally Heart: irregular, no murmurs Abd: soft, non-tender, non-distended Ext: no edema Skin: warm/well-perfused Neuro: alert and oriented x3, no focal findings Psych: appropriate affect Objective Data Active Medications Acetaminophen (Acetaminophen 325 Mg Tablet) 650 mg PO Q6H PRN PRN Reason: Pain, Mild 1-3,fever,headache Apixaban (Apixaban 2.5 Mg Tablet) 2.5 mg PO BID [facility] Last Admin: 04/24/25 08:38 Dose: 2.5 mg Documented By: SANTIAGO Aspirin (Aspirin 81 Mg Tab.Chew) 81 mg PO DAILY [facility] On Hold: 04/20/25 12:00 Last Admin: 04/20/25 08:01 Dose: 81 mg Documented By: VENITA Bumetanide (Bumetanide 1 Mg Tablet) 2 mg PO DAILY [facility]; Protocol Last Admin: 04/24/25 08:38 Dose: 2 mg Documented By: SANTIAGO Calcium Carbonate (Calcium Carbonate 750 Mg Tab.Chew) 750 mg PO Q4H PRN PRN Reason: Heartburn Dextrose (Dextrose 50 % 25 Gm/50 Ml Syringe) 25 gm IVPUSH Q15M PRN; Protocol PRN Reason: per Hypoglycemia Standing Ord. Erythromycin (Erythromycin Base 0.5% Oph Oin 1 Gm Tube) 1 cm EYE-BOTH QID [facility] Last Admin: 04/24/25 08:38 Dose: 1 cm Documented By: SANTIAGO Glucose (Glucose Gel 15 Gm Gel..Gram.) 15 gm PO Q15M PRN; Protocol PRN Reason: per Hypoglycemia Standing Ord. Insulin Human Lispro (Insulin Lispro 100 Unit/Ml 3 Ml Vial) 0 unit SUBCUT QIDACHS [facility]; Protocol Last Admin: 04/24/25 07:55 Dose: Not Given Documented By: SANTIAGO Non-Admin Reason: No Insulin Coverage Magnesium Hydroxide (Milk Of Magnesia 30 Ml Oral.Susp) 30 ml PO DAILY PRN PRN Reason: Constipation Last Admin: 04/24/25 08:51 Dose: 30 ml Documented By: SANTIAGO Melatonin (Melatonin 3 Mg Tablet) 6 mg PO BEDTIME PRN PRN Reason: Insomnia Last Admin: 04/19/25 21:27 Dose: 6 mg Documented By: ASHLEY Sodium Chloride (0.9 % Sodium Chloride Flush 3 Ml Syringe) 3 ml IVFLUSH QSHIFT [facility] Last Admin: 04/24/25 08:38 Dose: 3 ml Documented By: SANTIAGO Spironolactone (Spironolactone 25 Mg Tablet) 12.5 mg PO DAILY [facility]; Protocol Last Admin: 04/24/25 08:38 Dose: 12.5 mg Documented By: SANTIAGO Tamsulosin HCl (Tamsulosin Hcl 0.4 Mg Capsule) 0.4 mg PO DAILY [facility] Last Admin: 04/24/25 08:38 Dose: 0.4 mg Documented By: SANTIAGO Labs 04/24/25 06:40 04/24/25 06:40 Labs: Laboratory Results - last 24 hr 04/22/25 04/23/25 04/23/25 10:36 07:12 10:26 MCV MCH MCHC RDW Plt Count MPV Immature Gran % (Auto) Neut % (Auto) Lymph % (Auto) [place] % (Auto) Eos % (Auto) Baso % (Auto) Lymph # (Auto) [place] # (Auto) Eos # (Auto) Baso # (Auto) Abs Immat Gran (auto) Absolute Neuts (auto) Absolute Nucleated RBC Nucleated RBC % (auto) ABG pH at Pt Temp ABG pCO2 at Pt Temp ABG pO2 at Pt Temp ABG HCO3 ABG Base Excess (Actual) VBG pH VBG pCO2 VBG pO2 VBG HCO3 VBG O2 Saturation VBG Base Excess Anion Gap Estim Creat Clear Calc Estimated GFR POC Glucose Random Glucose Calcium Magnesium Lactate Dehydrogenase 144 NT-Pro-B Natriuret Pep Pleural pH 7.51 Pleural WBC 0.246 Pleural RBC < 0.002 Pleural Neutrophils 13 Pleural Lymphocytes 38 Pleural Monocytes 34 Pleural Other Cells 15 Pleural Total Protein 1.9 Pleural Albumin 1.5 Pleural LDH 49 Pleural Glucose 134 04/23/25 04/23/25 04/23/25 10:55 16:19 20:46 MCV MCH MCHC RDW Plt Count MPV Immature Gran % (Auto) Neut % (Auto) Lymph % (Auto) [place] % (Auto) Eos % (Auto) Baso % (Auto) Lymph # (Auto) [place] # (Auto) Eos # (Auto) Baso # (Auto) Abs Immat Gran (auto) Absolute Neuts (auto) Absolute Nucleated RBC Nucleated RBC % (auto) ABG pH at Pt Temp ABG pCO2 at Pt Temp ABG pO2 at Pt Temp ABG HCO3 ABG Base Excess (Actual) VBG pH VBG pCO2 VBG pO2 VBG HCO3 VBG O2 Saturation VBG Base Excess Anion Gap Estim Creat Clear Calc Estimated GFR POC Glucose 143 H 268 H 259 H Random Glucose Calcium Magnesium Lactate Dehydrogenase NT-Pro-B Natriuret Pep Pleural pH Pleural WBC Pleural RBC Pleural Neutrophils Pleural Lymphocytes Pleural Monocytes Pleural Other Cells Pleural Total Protein Pleural Albumin Pleural LDH Pleural Glucose 04/24/25 04/24/25 04/24/25 06:40 06:47 07:48 MCV 91.0 MCH 27.6 MCHC 30.3 L RDW 24.2 H Plt Count 141 L MPV TNP Immature Gran % (Auto) 0.6 H Neut % (Auto) 70.1 Lymph % (Auto) 17.3 L [place] % (Auto) 10.1 Eos % (Auto) 1.3 Baso % (Auto) 0.6 Lymph # (Auto) 0.9 L [place] # (Auto) 0.6 Eos # (Auto) 0.1 Baso # (Auto) 0.0 Abs Immat Gran (auto) 0.03 Absolute Neuts (auto) 3.8 Absolute Nucleated RBC 0.000 Nucleated RBC % (auto) 0.0 ABG pH at Pt Temp ABG pCO2 at Pt Temp ABG pO2 at Pt Temp ABG HCO3 ABG Base Excess (Actual) VBG pH 7.40 VBG pCO2 65 VBG pO2 67 VBG HCO3 41 H VBG O2 Saturation 93.0 VBG Base Excess 14.2 Anion Gap 12 Estim Creat Clear Calc 43.5 Estimated GFR 44 POC Glucose 136 H Random Glucose 148 H Calcium 8.5 Magnesium 2.4 Lactate Dehydrogenase NT-Pro-B Natriuret Pep 2222.9 H Pleural pH Pleural WBC Pleural RBC Pleural Neutrophils Pleural Lymphocytes Pleural Monocytes Pleural Other Cells Pleural Total Protein Pleural Albumin Pleural LDH Pleural Glucose 04/24/25 10:13 MCV MCH MCHC RDW Plt Count MPV Immature Gran % (Auto) Neut % (Auto) Lymph % (Auto) [place] % (Auto) Eos % (Auto) Baso % (Auto) Lymph # (Auto) [place] # (Auto) Eos # (Auto) Baso # (Auto) Abs Immat Gran (auto) Absolute Neuts (auto) Absolute Nucleated RBC Nucleated RBC % (auto) ABG pH at Pt Temp 7.48 H ABG pCO2 at Pt Temp 40 ABG pO2 at Pt Temp 130 H ABG HCO3 30 H ABG Base Excess (Actual) 6.3 VBG pH VBG pCO2 VBG pO2 VBG HCO3 VBG O2 Saturation VBG Base Excess Anion Gap Estim Creat Clear Calc Estimated GFR POC Glucose Random Glucose Calcium Magnesium Lactate Dehydrogenase NT-Pro-B Natriuret Pep Pleural pH Pleural WBC Pleural RBC Pleural Neutrophils Pleural Lymphocytes Pleural Monocytes Pleural Other Cells Pleural Total Protein Pleural Albumin Pleural LDH Pleural Glucose Microbiology Microbiology Results: Microbiology 04/23/25 10:26 Gram Stain - Final Thoracentesis Fluid Anaerobic Culture - Preliminary No growth to date. Body Fluid Culture - Preliminary No growth to date. 04/22/25 10:36 Gram Stain - Final Pleura Anaerobic Culture - Preliminary No growth to date. Body Fluid Culture - Final No growth after 2 days Assessment and Plan (1) Congestive heart failure: Status: Acute (2) Type 2 diabetes mellitus without complication, with no history of insulin use: Status: Acute (3) Acute respiratory failure with hypercapnia: Status: Acute (4) Pleural effusion: Status: Acute Plan d9, 79yo M with AF on apixaban, HFrEF, HTN, DM2 presenting with dyspnea, admitted for hypoxia due to CHF exacerbation after discontinuing diuretic at the advise of his mirror specialist. Briefly in ICU on BiPAP 04/17-04/18 then stepped down to telemetry unit and placed on furosemide drip. Also found to have hypercarbic respiratory failure acute/chronic HF with recovered EF - change IV to PO bumetanide; overall net negative 7.6L this admission; Cardiology following; monitor lytes, NT-proBNP, I/O; continue spironolactone acute/chronic hypoxic/hypercarbic respiratory failure - BiPAP at night, will need upon discharge, consult RT bilateral pleural effusions - tapped 1.6L on R 04/22, 1.1L on L 04/23; pleural fluid consistent with transudate from CHF dysphagia - PERFORMANCE TESTER: NDD3 solids, nectar liquids persistent AF: apixaban, rate-controlled CKD3: SCr near baseline anemia of CKD: monitor H+H DM2: correction-dose lispro BPH: tamsulosin VTE ppx: apixaban dispo: STR In my clinical judgment, the patient requires continued inpatient hospitalization for the following reasons: resp failure Total time managing care of this patient today: 35 minutes. Quality Stroke Does the patient have a stroke diagnosis?: No VTE Prior VTE?: No VTE Risk Level:: Medical - moderate - high VTE Device Contraindication: Treatment Not Indicated VTE Drug Contraindication: N/A - Med Ordered
--- NOTE | 2025-04-24 10:25 | MHC.CM.PN ---
Per ROUNDS discussion, Patient may be medically cleared for dc tomorrow; has asked [facility] to initiate insurance auth.
[2025-04-24 11:09] LABS: Glucose, Whole Blood 255 mg/dL (60-115)
[2025-04-24 11:48] LABS: Albumin Pleural Fluid 1.2
--- NOTE | 2025-04-24 12:40 | PC.NURSE ---
Addendum entered by Olga Lidia Zarate RN 04/24/25 18:27: Bladder scanned pt at [address] Almeida made aware; str.cath done per MD's order for 410mLs. pt due to void at 2330; Urinal at the bedside Original Note: Killian cath removed at 0640; Pt due to void at 1240; no urine output as of 1240; Bladder scanned the pt for 207mL; Dr. Almeida made aware, no interventions are needed at this time, pt to be monitored. Urinal at the bedside;
--- NOTE | 2025-04-24 14:26 | MHC.SL.SWA ---
Speech Pathologist Impression: Risk of Aspiration Due to: Dysphasia Diet Status: Recommend DOWNGRADE solids to Ground/Mechanical (per son's request) and UPGRADE liquids to THIN (No Straws), pills whole in puree. Liquid Consistency and Strategies for Safe Swallow: Liquid Intake Recommendation: Thin Liquid Intake Strategies: Small Sips No Straws Solid Food Consistency: Dietary Recommendations: Ground/mechanical (NDD2) Additional Modifications to Solid Foods: Liquids by cup sip, NO STRAWS. Recommend supervision at meals. Do not attempt if patient is lethargic/fatigued or has worsening respiratory status. Oral Medication Intake: Whole with Puree Please contact the pharmacy regarding appropriate crushable or liquid drug formulations that are available whenever modified delivery is recommended. Compensatory Strategies and Precautions to be Taken for Safe Swallow: Sitting Upright (90 deg) No Straw Liquids from Cup Small Bites and Sips Alternate Liquids/Solids Supervision While Eating and Drinking for Safe Swallow: Direct Supervision (1:1) Foods to Avoid: Mixed consistencies Swallowing Recommended Treatments: Compens. Strategy Educat. Recommendation for Speech: Inpatient Speech Therapy Comment: Patient seen after lunch with his sons present in room. Patient was seated in chair beside bed, sons were mentioning speech pathologist upon my entry. One son reported that he had requested the kitchen grind up meat more for patient as he had observed his father having difficulty with the meats provided on the chopped diet (too tough). SENIOR MORTGAGE UNDERWRITER explained dysphagia diet options further and recommended change to Ground/Mechanical. Sons and patient also requested re-assessment of liquids. Patient was given water by tsp and self administered cup sip. On tsp, patient demonstrated mildly delayed oral phase (patient held water in mouth) timely swallow (improved from initial assessment). ON second trial by spoon, patient again held water in mouth, then coughed after swallow. Patient stated he felt the problem was orally holding the water. Patient was given further trials of cup sips of water which he self admimistered. Patient noted to take small sips, produce a normal oral phase and timely swallow. On several sips, consuming at least 2/3 of the cup, no clinical signs of aspiration. Recommend DOWNGRADE solids to Ground/Mechanical (per son's request) and UPGRADE liquids to THIN, pills whole in puree. SENIOR MORTGAGE UNDERWRITER will continue to follow, assure patient is tolerating diet. RN advised of change. Frequency/Duration: Date Range for Service Req: Timeline to reassess: Box Spring Maker Clinican/Clinical Fellow: No Supervisory Statement: I have reviewed and agree with the student/clinical fellow's documentation: N/A Speech Language Pathologist: Alicia San M.A., CCC-SENIOR MORTGAGE UNDERWRITER
[2025-04-24 16:20] LABS: Glucose, Whole Blood 219 mg/dL (60-115)
[2025-04-24 18:43] LABS: Total Protein Urine Random 9 mg/dL (<12)
[2025-04-24 19:28] LABS: Glucose, Whole Blood 165 mg/dL (60-115)
[2025-04-25] VITALS: BP 111/60; PULSE 85; RESP 16; TEMP 37.2; O2SAT 94
[2025-04-25 00:56] LABS: ABG Refer to POC result
--- NOTE | 2025-04-25 02:11 | PC.NURSE ---
Pt bladder scanned at 01:40. 220cc of urine in bladder. Per charge nurse, will bladder scan pt again in 4-6 hours.
[2025-04-25 03:05] VITALS: BP 96/60; PULSE 88; RESP 17; TEMP 36.7; O2SAT 94
[2025-04-25 05:15] VITALS: BMI 27.6
[2025-04-25 07:09] LABS: Alanine Aminotransferase < 6 U/L (0-40); Albumin Level 3.0 g/dL (3.5-5.0); Alkaline Phosphatase 73 U/L (39-117); Anion Gap 11 (12-20); Aspartate Amino Transferase 9 U/L (5-37); Blood Urea Nitrogen 21 mg/dL (9-16); Calcium 8.1 mg/dL (8.4-10.2); Carbon Dioxide 31 mmol/L (22-29); Chloride 98 mmol/L (96-108); Creatinine Clr Calc Pharmacy 44.0; Estimated Glomerular Filt Rate 49; Magnesium 2.5 mg/dL (1.6-2.6); Potassium 3.3 mmol/L (3.3-5.1); Sodium 137 mmol/L (135-145); Total Protein 5.1 g/dL (6.5-8.0)
[2025-04-25 07:14] LABS: NT Pro B Type Natriuretic Pept 2308.6 pg/mL (<300)
[2025-04-25 08:00] VITALS: BP 142/94; PULSE 88; RESP 19; TEMP 36.4; O2SAT 98
[2025-04-25 09:11] LABS: Glucose, Whole Blood 170 mg/dL (60-115)
--- NOTE | 2025-04-25 09:43 | MHC.CM.PN ---
IMM 04/25/25 DELIVERED TO BEDSIDE, ONE OF PT'S SON AT BEDSIDE, PT MEDICALLY CLEARED FOR DC TO STR AT [facility], [facility] HAS RECEIVED [facility] FOR BLS TRANSPORT AT 1PM.
[2025-04-25 09:49] VITALS: BP 142/94
[2025-04-25] MEDS: Erythromycin Base 0.5% Oph Oin 1 GM TUBE 1 CM EYE-BOTH ×2 (09:50→12:07)
[2025-04-25] MEDS: 0.9 % Sodium Chloride Flush 3 ML SYRINGE IVFLUSH (09:50)
[2025-04-25 11:03] LABS: Appearance Urine Clear; Glucose Urine UA Negative (Negative); PH 6.5 (5.0-9.0); Specific Gravity - Urine 1.015 (1.005-1.025); UMIC TRIGGER UA YES
[2025-04-25 11:51] LABS: Glucose, Whole Blood 204 mg/dL (60-115)
[2025-04-25 12:00] VITALS: BP 112/57; PULSE 88; RESP 17; TEMP 36.4; O2SAT 97
--- NOTE | 2025-04-25 14:31 | PM.DS ---
DS: Providers Provider Date of Service: 04/25/25 Date of admission: 04/16/25 15:38 Date of discharge: 04/25/25 Primary care physician: Latoya Lopez MD Consults: 04/16/25 15:38 Consult to Cardiology Routine Consulting Provider: [facility] – [place] [facility] Reason for consultation: HF exacerbation Has provider been notified: No 04/19/25 21:55 Consult to Wound Care Routine Reason for consultation: Blanchable redness to Right buttocks 04/21/25 10:52 Consult to Pulmonology Routine Consulting Provider: [facility] – [place] Pulmonology Services Reason for consultation: hypercapnia Has provider been notified: No DS: Diagnosis Discharge Diagnosis (1) Pleural effusion: Status: Acute (2) Cardiomyopathy: Status: Acute (3) Acute exacerbation of congestive heart failure: Status: Acute (4) Pleural effusion due to congestive heart failure: Status: Acute (5) Acute heart failure with preserved ejection fraction (HFpEF): Status: Acute (6) Persistent atrial fibrillation: Status: Acute (7) Acute on chronic respiratory failure with hypoxia and hypercapnia: Status: Acute (8) Chronic kidney disease, stage 3: Status: Acute DS: Summary Hospital Course Hospital Course: From the history and physical by the admitting hospitalist, Tj Baeza MD, 04/16/25: 79-year-old male who presented to hospital for shortness of breath. Patient found to be in acute hypoxic respiratory failure, began approximately 1-2 weeks ago, patient states that he visited his analyst food and beverage, who suggested on discontinuing his diuretics, to assess kidney function and heart failure. Patient then began with worsening shortness of breath on minimal exertion. On arrival, patient is saturating 84% on room air, with rales, 2+ pitting edema. ProBNP 296. Chest x-ray with pulmonary edema and bilateral pleural effusions. Patient received 40 mg of IV Lasix. At this time patient states then he continued to feel short of breath on minimal exertion. Patient does not recall dose of Lasix, however on chart review patient was recently prescribed Bumex 1 mg b.i.d. on 03/04/2025. Of note, patient was recently in [facility] and had to be hospitalized for 35 days for exacerbation, requiring intubation. At the time patient was on Bumex and Lasix per patient and son report, course was complicated by VERENA. 79yo M with AF on apixaban, HFrEF, HTN, DM2 presenting with dyspnea, admitted for hypoxia due to CHF exacerbation after discontinuing diuretic at the advise of his analyst food and beverage. Also found to have hypercarbic respiratory failure and was briefly in ICU on BiPAP 04/17-04/18 then stepped down to telemetry unit and placed on furosemide drip and BiPAP at night. Hospital course by problem: acute/chronic HF with recovered EF - changed IV to PO bumetanide 2 mg/d and added spironolactone 12.5 mg/d; overall net negative 7.6L this admission; Cardiology consulted and will need follow-up with Dr Keller in 2 weeks. acute/chronic hypoxic/hypercarbic respiratory failure - placed on BiPAP 18/8 cm IPEP/EPAP with 24% bleed in and should continue this at rehab; worked with respiratory therapy to order this for home use after his rehab stay bilateral pleural effusions - tapped 1.6L on R 04/22, 1.1L on L 04/23; pleural fluid consistent with transudate from CHF dysphagia - MEDICAL DETAIL REPRESENTATIVE consulted: NDD3 solids, nectar liquids recommended persistent AF - treated with apixaban, rate-controlled without any specific pharmacologic agent CKD3 - SCr near baseline He was discharged to [facility] for short-term rehab. Time Attestation Discharge Coordination Time (in mins): 45 Quality: Safe Use of Opioids Does Pt have an Active Cancer Diagnosis on the Problem List?: No Quality: Stroke Does the patient have a stroke diagnosis?: No Physical Exam Vital Signs: Vital Signs: Last Vital Signs Temp 97.5 F 04/25/25 12:00 Pulse 88 04/25/25 12:00 Resp 17 04/25/25 12:00 BP 112/57 L 04/25/25 12:00 Pulse Ox 97 04/25/25 12:00 O2 Del Method Room Air 04/25/25 12:00 O2 Flow Rate 1.5 04/24/25 07:35 FiO2 24 04/23/25 23:45 BMI result Body Mass Index 27.6 Gen: in no acute distress HEENT: sclera anicteric, moist mucus membranes Neck: supple Lungs: diminished bases bilaterally Heart: irregular, no murmurs Abd: soft, non-tender, non-distended Ext: no edema Skin: warm/well-perfused Neuro: alert and oriented x3, no focal findings Psych: appropriate affect DS: Data Data Completed and Pending Completed studies during hospitalization [Text1]: Laboratory Results WBC 5.4 X10*3/uL (4.8-10.8) 04/24/25 06:40 RBC 2.79 X10*6/uL (4.60-5.80) L 04/24/25 06:40 Hgb 7.7 g/dl (14.0-18.0) L 04/24/25 06:40 Hct 25.4 % (42.0-52.0) L 04/24/25 06:40 MCV 91.0 fL (80.0-98.0) 04/24/25 06:40 MCH 27.6 pg (27.0-33.0) 04/24/25 06:40 MCHC 30.3 g/dl (31.0-36.0) L 04/24/25 06:40 RDW 24.2 % (11.0-16.0) H 04/24/25 06:40 Plt Count 141 X10*3/uL (160-400) L 04/24/25 06:40 MPV TNP 04/24/25 06:40 Immature Gran % (Auto) 0.6 % (0.0-0.4) H 04/24/25 06:40 Neut % (Auto) 70.1 % (45-73) 04/24/25 06:40 Lymph % (Auto) 17.3 % (20-40) L 04/24/25 06:40 [place] % (Auto) 10.1 % (2-11) 04/24/25 06:40 Eos % (Auto) 1.3 % (0-4) 04/24/25 06:40 Baso % (Auto) 0.6 % (0-2) 04/24/25 06:40 Lymph # (Auto) 0.9 X10*3/uL (1.2-4.9) L 04/24/25 06:40 [place] # (Auto) 0.6 X10*3/uL (0.1-1.2) 04/24/25 06:40 Eos # (Auto) 0.1 X10*3/uL (0.0-0.4) 04/24/25 06:40 Baso # (Auto) 0.0 X10*3/uL (0.0-0.2) 04/24/25 06:40 Abs Immat Gran (auto) 0.03 X10*3/uL (0.00-0.03) 04/24/25 06:40 Absolute Neuts (auto) 3.8 x10*3/uL (2.0-8.3) 04/24/25 06:40 Absolute Nucleated RBC 0.000 X10*3/uL (0.0-0.012) 04/24/25 06:40 Nucleated RBC % (auto) 0.0 /100WBC (0.0-0.2) 04/24/25 06:40 Hold Purple Top SEE NOTE 04/23/25 07:12 PT 15.2 SEC (10.9-12.4) H 04/23/25 07:12 INR 1.3 (0.9-1.1) H 04/23/25 07:12 O2 Saturation Not Reportable 04/24/25 10:13 ABG pH at Pt Temp 7.48 (7.35-7.45) H 04/24/25 10:13 ABG pCO2 at Pt Temp 40 mmHg (32-45) 04/24/25 10:13 ABG pO2 at Pt Temp 130 mmHg (83-108) H 04/24/25 10:13 ABG HCO3 30 mmol/L (22-26) H 04/24/25 10:13 ABG Base Excess (Actual) 6.3 mmol/L 04/24/25 10:13 VBG pH 7.40 (7.32-7.43) 04/24/25 06:47 VBG pCO2 65 mmHg 04/24/25 06:47 VBG pO2 67 mmHg 04/24/25 06:47 VBG HCO3 41 mmol/L (22-26) H 04/24/25 06:47 VBG O2 Saturation 93.0 % 04/24/25 06:47 VBG Base Excess 14.2 mmol/L 04/24/25 06:47 Sodium 137 mmol/L (135-145) 04/25/25 06:14 Potassium 3.3 mmol/L (3.3-5.1) 04/25/25 06:14 Chloride 98 mmol/L (96-108) 04/25/25 06:14 Carbon Dioxide 31 mmol/L (22-29) H 04/25/25 06:14 Anion Gap 11 (12-20) L 04/25/25 06:14 BUN 21 mg/dL (9-16) H 04/25/25 06:14 Creatinine 1.40 mg/dL (0.5-1.4) 04/25/25 06:14 Estim Creat Clear Calc 44.0 04/25/25 06:14 Estimated GFR 49 04/25/25 06:14 POC Glucose 204 mg/dL (60-115) H 04/25/25 11:47 Random Glucose 155 mg/dL (60-115) H 04/25/25 06:14 Calcium 8.1 mg/dL (8.4-10.2) L 04/25/25 06:14 Phosphorus 4.0 mg/dL (2.7-4.5) 04/18/25 07:00 Magnesium 2.5 mg/dL (1.6-2.6) 04/25/25 06:14 Total Bilirubin 0.7 mg/dL (0.0-1.0) 04/25/25 06:14 Direct Bilirubin 0.3 mg/dL (0.0-0.5) 04/25/25 06:14 AST 9 U/L (5-37) 04/25/25 06:14 ALT < 6 U/L (0-40) 04/25/25 06:14 Alkaline Phosphatase 73 U/L (39-117) 04/25/25 06:14 Lactate Dehydrogenase 144 U/L (118-273) 04/23/25 07:12 Troponin I High Sens 6.4 ng/L (<3.5-35.0) 04/16/25 13:08 NT-Pro-B Natriuret Pep 2308.6 pg/mL (<300) H 04/25/25 06:14 Total Protein 5.1 g/dL (6.5-8.0) L 04/25/25 06:14 Albumin 3.0 g/dL (3.5-5.0) L 04/25/25 06:14 Triglycerides 71 mg/dL (<150) 04/16/25 13:09 Cholesterol 78 mg/dL (<200) 04/16/25 13:09 LDL Cholesterol, Calc 33 mg/dL (<100) 04/16/25 13:09 HDL Cholesterol 31 mg/dL (>40) L 04/16/25 13:09 TSH 2.88 uIU/mL (0.32-4.0) 04/16/25 13:09 Urine Color Yellow 04/25/25 10:53 Urine Appearance Clear 04/25/25 10:53 Urine pH 6.5 (5.0-9.0) 04/25/25 10:53 Ur Specific [place] 1.015 (1.005-1.025) 04/25/25 10:53 Urine Protein Negative mg/dL (Neg-Trace) 04/25/25 10:53 Urine Glucose (UA) Negative mg/dL (Negative) 04/25/25 10:53 Urine Ketones Negative mg/dL (Negative) 04/25/25 10:53 Urine Blood Negative (Negative) 04/25/25 10:53 Urine Nitrite Negative (Negative) 04/25/25 10:53 Ur Leukocyte Esterase Small (1+) (Negative) H 04/25/25 10:53 Urine RBC 0-2 /HPF (0-2) 04/25/25 10:53 Urine WBC 6-10 /HPF (0-5) H 04/25/25 10:53 Ur Squamous Epith Cells 0-2 /HPF (0-2) 04/25/25 10:53 Urine Bacteria 4+ (None Seen) 04/25/25 10:53 Hyaline Casts 0-2 /LPF (0-2) 04/25/25 10:53 U Random Total Protein 9 mg/dL (<12) 04/24/25 17:30 Urine Creatinine 108.87 mg/dL 04/24/25 17:30 Peritoneal pH Cancelled 04/22/25 10:36 Peritoneal WBC Cancelled 04/22/25 10:36 Peritoneal RBC Cancelled 04/22/25 10:36 Periton Neutrophils Cancelled 04/22/25 10:36 Periton Lymphocytes Cancelled 04/22/25 10:36 Peritoneal Monocytes Cancelled 04/22/25 10:36 Peritoneal Eosinophils Cancelled 04/22/25 10:36 Peritoneal Basophils Cancelled 04/22/25 10:36 Peritoneal Other Cells Cancelled 04/22/25 10:36 Peritoneal Tot Protein Cancelled 04/22/25 10:36 Peritoneal Albumin Cancelled 04/22/25 10:36 Peritoneal LDH Cancelled 04/22/25 10:36 Peritoneal Glucose Cancelled 04/22/25 10:36 Pleural pH 7.48 04/23/25 10:26 Pleural WBC 0.246 X10*3/uL 04/23/25 10:26 Pleural RBC < 0.002 X10*6/uL 04/23/25 10:26 Pleural Neutrophils 13 % 04/23/25 10:26 Pleural Lymphocytes 38 % 04/23/25 10: Pleural Monocytes 34 % 04/23/25 10:26 Pleural Other Cells 15 % 04/23/25 10: Pleural Total Protein 1.8 04/23/25 10: Pleural Albumin 1.2 04/23/25 10: Pleural LDH 38 04/23/25 10:26 Pleural Glucose 161 04/23/25 10: Pleural Amylase 6 04/23/25 10:[address] 04/21/25 13:35 IMPRESSION: Pulmonary edema and bilateral large volume pleural effusions. Cardiogenic versus nephrogenic. Subacute fractures at T4, T12 and T2 vertebral bodies. Coronary artery disease and atherosclerosis disease. Cholelithiasis. Fleischner guidelines were followed. Electronically signed by: Jesus Clark MD 04/21/2025 02:01 PM EDT Thoracentesis Ultrasound 04/23/25 09:09 IMPRESSION: Ultrasound-guided left thoracentesis. Electronically signed by: Leda Dhillon MD 04/23/2025 10:59 AM EDT Chest X-Ray 04/24/25 07:53 IMPRESSION: Pulmonary edema and bilateral pleural effusions right greater than left side. Overall worsening since prior exam. No gross pneumothorax. Electronically signed by: Jesus Clark MD 04/24/2025 08:13 AM EDT TTE 04/17/25 - Normal left ventricular cavity size. The left ventricular systolic function is low normal. The visually estimated ejection fraction is between 50-55%. - Mildly increased right ventricular cavity size. There is mildly decreased right ventricular systolic function. - The left atrium is moderately dilated. - Moderately elevated right atrial pressure. Moderate to severe pulmonary hypertension is present. - The inferior vena cava is dilated and collapses less than 50% with inspiration. - There is a large left sided pleural effusion. Discharge Plan Discharge Anticipated Discharge Date/Time: 04/25/25 14:27 Patient Disposition: Xfer SNF Discharge Diagnosis: bilateral pleural effusions, respiratory failure, congestive heart failure Referrals: [facility] [Outside] - 1 Day Referral Note: SHORT TERM REHAB Latoya Lopez MD [Primary Care Provider, Internal Medicine] - 1 Week Tal Pompa MD [Physician, Pulmonology] - 2 Weeks Delano Keller MD [Physician, Cardiology] - 2 Weeks Discharge Medications: New polyethylene glycol 3350 17 gram Powder In Packet 17 g PO DAILY Qty: 30 0RF spironolactone 25 mg Tablet 12.5 mg PO DAILY Qty: 15 0RF Protocol: Hold for SBP< HOLD for SBP < : 90 erythromycin 5 mg/gram (0.5 %) Ointment 1 cm ophthalmic (eye) QID Qty: 10 0RF bumetanide 1 mg Tablet 2 mg PO DAILY Qty: 30 0RF Protocol: Hold for SBP< HOLD for SBP < : 90 Continued (DME) OneTouch Verio test strips Strip See Rx Instructions .ROUTE .MEDSUPPLY Qty: 100 1RF Rx Instructions: use 1 strip once a day to test blood sugar (DME) blood-glucose meter [OneTouch Verio Flex meter] [facility] [place] See Rx Instructions .ROUTE .MEDSUPPLY Qty: 1 0RF Rx Instructions: As directed (DME) lancets [Accu-Chek Softclix Lancets] [facility] [place] See Rx Instructions .ROUTE .MEDSUPPLY Qty: 100 3RF Rx Instructions: use 1 lancet daily to test blood sugar tamsulosin 0.4 mg capsule 0.4 mg PO DAILY 90 Days Qty: 90 3RF dapagliflozin propanediol [Farxiga] 10 mg tablet 10 mg PO DAILY Qty: 90 1RF acetaminophen 500 mg Tablet 500 mg PO Q6H PRN (Reason: Fever Or Pain) Eliquis 2.5 mg Tablet 2.5 mg PO BID 30 Days Qty: 60 3RF Rx Instructions: Needs to follow-up with PCP/Nephrology and increase the dose once VERENA resolves sennosides [Senna Lax] 8.6 mg Tablet 8.6 mg PO DAILY PRN (Reason: Constipation) Qty: 14 3RF triamcinolone acetonide 0.1 % Cream 1 appl topical BID Qty: 80 0RF Protocol: Apply to: Apply to: legs (DME) Unna Boot 12 %- 4 X 10 yard bandage See Rx Instructions .Route Qty: 1 0RF Rx Instructions: As directed aspirin 81 mg tablet 81 mg PO DAILY Discharge Orders: Discharge Order (Routine); Ordered 04/25/25 Ordered By: Michelle Almeida Diet: Low salt diet Activity on Discharge: As tolerated Stand Alone Forms: Patient Portal Discharge page Print Language: [place] Care Plan Goals: cardiopulmonary health Health Concerns: bilateral pleural effusions, respiratory failure, congestive heart failure Plan of Treatment: transfer to [facility] for short-term rehabilitation take spironolactone 12.5mg once daily and bumetanide 2mg once daily Low-sodium diet: less than 2000 mg of sodium daily. Weigh yourself daily and call your doctor if your weight goes up by more than 3 lb/day or 5 lb/week. see [facility] – [place] Cardiology in 2 weeks, [facility] [place] Pulmonology in 2 weeks Please follow up with your primary care doctor within 1 week or discharge from rehabilitation. Return to the hospital if you experience recurrent or worsening symptoms. Assessment: See Discharge Summary.
== END 2025-04-25 15:15 | disposition skilled nursing facility (03) | DRG 291 ==
LOC: HO.ED 14:33 → HO.EDOVER 15:48 → HO.ICU 18:09 → HO.IMC 04-17 16:57
PROVIDERS: Hospitalist; Internal Medicine; Internal Medicine Pulmonary Disease; Physician Assistant Medical; Radiology Diagnostic Radiology; Registered Nurse Community Health; Admitting Provider Student in an Organized Health Care Education/Training Program; Emergency Provider Emergency Medicine; PCP Internal Medicine; Visit Provider Family Medicine
PROC: 0W993ZZ Drainage of Right Pleural Cavity, Percutaneous Approach (ICD-10-PCS; principal; 2025-04-22 09:30)
PROC: 0W9B3ZZ Drainage of Left Pleural Cavity, Percutaneous Approach (ICD-10-PCS; principal; 2025-04-23 09:30)
DX: I13.0 Hypertensive heart and chronic kidney disease with heart failure and stage 1 through stage 4 chronic kidney disease, or unspecified chronic kidney disease (principal); G93.41 Metabolic encephalopathy; I50.23 Acute on chronic systolic (congestive) heart failure; J96.21 Acute and chronic respiratory failure with hypoxia; J96.22 Acute and chronic respiratory failure with hypercapnia; J91.8 Pleural effusion in other conditions classified elsewhere; I48.19 Other persistent atrial fibrillation; I42.9 Cardiomyopathy, unspecified; D63.1 Anemia in chronic kidney disease; N40.0 Benign prostatic hyperplasia without lower urinary tract symptoms; T50.2X6A Underdosing of carbonic-anhydrase inhibitors, benzothiadiazides and other diuretics, initial encounter; I27.29 Other secondary pulmonary hypertension; I50.813 Acute on chronic right heart failure; N18.30 Chronic kidney disease, stage 3 unspecified; E11.22 Type 2 diabetes mellitus with diabetic chronic kidney disease; Z79.01 Long term (current) use of anticoagulants; Z79.82 Long term (current) use of aspirin; Z79.899 Other long term (current) drug therapy
CPT/HCPCS: 32555; 36415; 36600; 71045; 71046; 71250; 80048; 80053; 80061; 80076; 81001; 82040; 82042; 82150; 82570; 82803; 82945; 82947; 83615; 83735; 83880; 83986; 84100; 84155; 84156; 84157; 84311; 84443; 84484; 85025; 85610; 87070; 87073; 87205; 89051; 92526; 92610; 93005; 93306; 94660; 97116; 97162; 97166; 97530; 99285; J1120; J1938; J1939; J2003; Q9957

== ENCOUNTER → 2025-04-16 12:00 | Outpatient (BNV) | payer MEDICARE, SELFPAY | PROVIDERS: Admitting Provider Student in an Organized Health Care Education/Training Program; Emergency Provider Emergency Medicine; PCP Internal Medicine; Visit Provider Internal Medicine Cardiovascular Disease | DX: I48.91 Unspecified atrial fibrillation (principal); I45.10 Unspecified right bundle-branch block | CPT/HCPCS: 93010 ==

== ENCOUNTER → 2025-04-16 12:45 | Outpatient (BNV) | payer MEDICARE, SELFPAY | PROVIDERS: Emergency Provider Emergency Medicine; PCP Internal Medicine; Visit Provider Radiology Diagnostic Radiology | DX: J81.0 Acute pulmonary edema (principal); J90 Pleural effusion, not elsewhere classified | CPT/HCPCS: 71045 ==

== ENCOUNTER 2025-04-16 15:38 | Outpatient (BNV) | payer MEDICARE, SELFPAY | END 2025-04-21 13:35 | PROVIDERS: Admitting Provider Student in an Organized Health Care Education/Training Program; Emergency Provider Emergency Medicine; PCP Internal Medicine; Visit Provider Radiology Diagnostic Radiology | DX: J90 Pleural effusion, not elsewhere classified (principal) | CPT/HCPCS: 71250 ==

== ENCOUNTER 2025-04-16 15:38 | Outpatient (BNV) | payer MEDICARE, SELFPAY | END 2025-04-22 10:31 | PROVIDERS: Admitting Provider Student in an Organized Health Care Education/Training Program; Emergency Provider Emergency Medicine; PCP Internal Medicine; Visit Provider Radiology Diagnostic Radiology | DX: J90 Pleural effusion, not elsewhere classified (principal) | CPT/HCPCS: 32555 ==

== ENCOUNTER 2025-04-16 15:38 | Outpatient (BNV) | payer MEDICARE, SELFPAY | END 2025-04-19 07:00 | PROVIDERS: Admitting Provider Student in an Organized Health Care Education/Training Program; Emergency Provider Emergency Medicine; PCP Internal Medicine; Visit Provider Specialist | DX: J90 Pleural effusion, not elsewhere classified (principal) | CPT/HCPCS: 71046 ==

== ENCOUNTER 2025-04-16 15:38 | Outpatient (BNV) | payer MEDICARE, SELFPAY | END 2025-04-24 07:53 | PROVIDERS: Admitting Provider Student in an Organized Health Care Education/Training Program; Emergency Provider Emergency Medicine; PCP Internal Medicine; Visit Provider Radiology Diagnostic Radiology | DX: J81.0 Acute pulmonary edema (principal); J90 Pleural effusion, not elsewhere classified | CPT/HCPCS: 71045 ==

== ENCOUNTER 2025-04-16 15:38 | Outpatient (BNV) | payer MEDICARE, SELFPAY | END 2025-04-17 07:00 | PROVIDERS: Admitting Provider Student in an Organized Health Care Education/Training Program; Emergency Provider Emergency Medicine; PCP Internal Medicine; Visit Provider Internal Medicine Cardiovascular Disease | DX: I42.2 Other hypertrophic cardiomyopathy (principal); I51.7 Cardiomegaly; I27.20 Pulmonary hypertension, unspecified; J90 Pleural effusion, not elsewhere classified | CPT/HCPCS: 93306 ==

== ENCOUNTER 2025-04-16 15:38 | Outpatient (BNV) | payer MEDICARE, SELFPAY | END 2025-04-23 10:04 | PROVIDERS: Admitting Provider Student in an Organized Health Care Education/Training Program; Emergency Provider Emergency Medicine; PCP Internal Medicine; Visit Provider Radiology Diagnostic Ultrasound | DX: J90 Pleural effusion, not elsewhere classified (principal); R91.8 Other nonspecific abnormal finding of lung field | CPT/HCPCS: 32555; 71045 ==

== ENCOUNTER → 2025-04-16 15:38 | Outpatient (BNV) | payer MEDICARE, SELFPAY | PROVIDERS: Admitting Provider Student in an Organized Health Care Education/Training Program; Emergency Provider Emergency Medicine; PCP Internal Medicine; Visit Provider Student in an Organized Health Care Education/Training Program | DX: I50.23 Acute on chronic systolic (congestive) heart failure (principal); E11.9 Type 2 diabetes mellitus without complications; J96.02 Acute respiratory failure with hypercapnia; J90 Pleural effusion, not elsewhere classified | CPT/HCPCS: 99232 ==

== ENCOUNTER → 2025-04-16 15:38 | Outpatient (BNV) | payer MEDICARE, SELFPAY | PROVIDERS: Admitting Provider Student in an Organized Health Care Education/Training Program; Emergency Provider Emergency Medicine; PCP Internal Medicine; Visit Provider Internal Medicine Cardiovascular Disease | DX: I42.9 Cardiomyopathy, unspecified (principal); I10 Essential (primary) hypertension; I50.9 Heart failure, unspecified; I48.19 Other persistent atrial fibrillation | CPT/HCPCS: 99233 ==

== ENCOUNTER → 2025-04-16 15:38 | Outpatient (BNV) | payer MEDICARE, SELFPAY | PROVIDERS: Admitting Provider Student in an Organized Health Care Education/Training Program; Emergency Provider Emergency Medicine; PCP Internal Medicine; Visit Provider Internal Medicine Pulmonary Disease | DX: I50.23 Acute on chronic systolic (congestive) heart failure (principal); J96.02 Acute respiratory failure with hypercapnia; J90 Pleural effusion, not elsewhere classified; J81.0 Acute pulmonary edema | CPT/HCPCS: 99223; 99232 ==

== ENCOUNTER → 2025-04-16 15:38 | Outpatient (BNV) | payer MEDICARE, SELFPAY | PROVIDERS: Admitting Provider Student in an Organized Health Care Education/Training Program; Emergency Provider Emergency Medicine; PCP Internal Medicine; Visit Provider Registered Nurse Community Health | DX: J96.01 Acute respiratory failure with hypoxia (principal) | CPT/HCPCS: 99291 ==

== ENCOUNTER 2025-05-12 15:01 | Outpatient (AMB) | payer MEDICARE, SELFPAY ==
[2025-05-12 15:03] VITALS: BP 128/58; PULSE 90; O2SAT 99; BMI 27.8
--- NOTE | 2025-05-12 15:03 | HO.NEPHOV_ITS ---
Vital Signs 05/12/25 15:03 Height 5 ft 11 in Weight 199 lb BMI 27.8 BP 128/58 L Blood Pressure Location Rt brachial Position Sitting Pulse 90 Pulse Source Pulse Oximeter Pulse Oximetry (%) 99 Oxygen Delivery Method Room Air Intake Visit Reasons: Rscng 04/28 missed appt Toll Collector Supervisor Required: No Accompanied by: Daughter Allergies cephalexin (Keflex) Allergy (Intermediate, Verified 05/12/25 15:08) hives levofloxacin Allergy (Intermediate, Verified 05/12/25 15:08) Hives cetirizine (From Zyrtec) Adverse Reaction (Intermediate, Verified 05/12/25 15:08) Fatigue Medication List - Last Reconciled 05/12/25 by Edmond Mahajan MD acetaminophen 500 mg PO Q6H PRN apixaban (Eliquis) 2.5 mg PO BID 30 days aspirin 81 mg PO DAILY blood sugar diagnostic (GrubsterTouch Verio test strips) use 1 strip once a day to test blood sugar blood-glucose meter (PeekYouuch Verio Flex Meter) As directed bumetanide 2 mg See Protocol PO DAILY erythromycin 1 cm ophthalmic (eye) QID Farxiga (dapagliflozin propanediol) 10 mg PO DAILY NS lancets (Accu-Chek Softclix Lancets) use 1 lancet daily to test blood sugar polyethylene glycol 3350 17 grams PO DAILY sennosides (Senna Lax) 8.6 mg PO DAILY PRN spironolactone 12.5 mg See Protocol PO DAILY tamsulosin 0.4 mg PO DAILY 90 days triamcinolone acetonide 0.1% 1 appl See Protocol topical BID zinc oxide-gauze bandage 12 %- 4 X 10 yard (Unna Boot) As directed HPI Comments Details: - The patient is an 79-year-old male seen for follow-up regarding acute kidney injury. In August 2024 serum creatinine was 0.95. He was hospitalized for about a month in [place] and he was diagnosed with heart failure and treated with the diuretics. He was hospitalized at [facility] on 03/13/2025 with a creatinine of 3.08. Diuretics were held use cautiously hydrated Serum creatinine dropped down to 1.4 mg/dL. Few days ago he was in the emergency room with leg swelling and he was found to have cellulitis was treated with antibiotics. And he was discharged with Lasix 20 mg p.o. daily. He is yet to start the Lasix. 05/12/25 Recently hospitalized for CHF Now on Bumex 2 mg QD s/p Rehab Returned home few days ago HgB had dropped to 7.7 Has improved to 9.4 with out transfusion Still has edema No dyspnea at rest [facility] Medical History (Updated 05/03/25 @ 00:01 by Kristin Alexander) Acute respiratory failure with hypercapnia Acute exacerbation of congestive heart failure CKD (chronic kidney disease) Congestive heart failure Cardiomyopathy Persistent atrial fibrillation Pulmonary edema Pleural effusion Stasis dermatitis of both legs History of congestive heart failure Physical deconditioning Weakness Hypertensive retinopathy Posterior vitreous detachment, left eye Epiphora due to excess lacrimation of right side Senile ectropion of right lower eyelid BPH (benign prostatic hyperplasia) Type 2 diabetes mellitus without complication, with no history of insulin use Normocytic anemia Thrombocytopenia COVID-19 vaccine series completed 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 Social History Household Members: None Housing: House Are you a primary childcare director to a significant other at home: No Do you presently have visiting nurse or other home services: Yes (patient has visiting nurse and physical therapy once a week) Patient Tobacco Use Status: Never used Tobacco e-Cigarette/Vaping Use: Never Used Second Hand Smoke Exposure: Yes Advance Directives Date on File: 12/28/23 service: No Current occupational status: retired Cognitive needs: No Hearing needs: No Vision needs: Yes Physical Exam Vital Signs: Last Vital Signs Pulse 90 05/12/25 15:03 BP 128/58 L 05/12/25 15:03 Pulse Ox 99 05/12/25 15:03 Oxygen Delivery Method Room Air 05/12/25 15:03 BMI result Body Mass Index 27.8 Last Vital Signs Temp 97.5 F 04/25/25 12:00 Pulse 88 04/25/25 12:00 Resp 17 04/25/25 12:00 BP 112/57 L 04/25/25 12:00 Pulse Ox 97 04/25/25 12:00 O2 Del Method Room Air 04/25/25 12:00 O2 Flow Rate 1.5 04/24/25 07:35 FiO2 24 04/23/25 23:45 BMI result Body Mass Index 27.6 Gen: in no acute distress HEENT: sclera anicteric, moist mucus membranes Neck: supple Lungs: diminished bases bilaterally Heart: irregular, no murmurs Abd: soft, non-tender, non-distended Ext: no edema Skin: warm/well-perfused Neuro: alert and oriented x3, no focal findings Psych: appropriate affect Results Reviewed Results Reviewed: 05/08/25 Cr 1.61 Nephrology Results: Hgb, (14.0-18.0) 7.7 g/dl L 04/24/25 WBC, (4.8-10.8) 5.4 X10*3/uL 04/24/25 Plt Count, (160-400) 141 X10*3/uL L 04/24/25 Sodium, (135-145) 137 mmol/L 04/25/25 Potassium, (3.3-5.1) 3.3 mmol/L 04/25/25 Chloride, (96-108) 98 mmol/L 04/25/25 Carbon Dioxide, (22-29) 31 mmol/L H 04/25/25 BUN, (9-16) 21 mg/dL H 04/25/25 Creatinine, (0.5-1.4) 1.40 mg/dL 04/25/25 Calcium, (8.4-10.2) 8.1 mg/dL L 04/25/25 Phosphorus, (2.7-4.5) 4.0 mg/dL 04/18/25 Urine Protein, (Neg-Trace) Negative mg/dL 04/25/25 Urine Creatinine 108.87 mg/dL 04/24/25 Renal US 03/14/25 Assessment & Plan Assessment & Plan (1) CKD (chronic kidney disease): Code(s): N18.9 - Chronic kidney disease, unspecified Category: Medical Plan Alireza had acute kidney injury superimposed on chronic kidney disease. Acute kidney injury was due to hypoperfusion in the setting of cardiorenal syndrome. Continue to avoid nephrotoxic agents including NSAIDs. Avoid hypotension. He has underlying chronic kidney disease . I believe the baseline creatinine is between 1.0 and 1.3 mg/dL. History of cardiomyopathy. Keep on Bumex 2 mg QD Encouraged him to stay on low-sodium diet Follow with documentation spec Anemia Multifactorial Awaiting to see gastroenterology. REcheck Iron /TIBC Orders: Orders Basic Metabolic Panel 3 Weeks D50.9 - Iron deficiency anemia, unspecified, N17.9 - Acute kidney failure, unspecified Complete Blood Count Auto Diff 3 Weeks D50.9 - Iron deficiency anemia, unspecified, N17.9 - Acute kidney failure, unspecified IRON PROFILE 3 Weeks D50.9 - Iron deficiency anemia, unspecified, N17.9 - Acute kidney failure, unspecified Ferritin 3 Weeks D50.9 - Iron deficiency anemia, unspecified, N17.9 - Acute kidney failure, unspecified Coding Level of Care Code Est Pt Level 4 (58296) Diagnoses CKD (chronic kidney disease) N18.9
== END 2025-05-12 15:35 | disposition home or self-care (01) ==
LOC: HO.HKA 15:02
PROVIDERS: PCP Internal Medicine; Visit Provider Internal Medicine Hypertension Specialist
DX: N18.9 Chronic kidney disease, unspecified (principal)
CPT/HCPCS: 99214

== ENCOUNTER → 2025-05-12 15:01 | Outpatient (BNVA) | payer MEDICARE, SELFPAY | PROVIDERS: PCP Internal Medicine; Visit Provider Internal Medicine Hypertension Specialist | DX: N18.9 Chronic kidney disease, unspecified (principal); N17.9 Acute kidney failure, unspecified | CPT/HCPCS: 99212 ==

== ENCOUNTER 2025-05-14 14:03 | Outpatient (AMB) | payer MEDICARE, SELFPAY ==
--- OUTSIDE RECORDS SUMMARY | 2025-03-20 09:45 | XMS_ITS ---
Author Organization [facility] Address [address] [place] [phone] Care Team Providers Care Administrative Receptionist Name Role Phone John PENNY, Latoya Negrete Primary Care Provider Un available Francine Ibrahim Ciro [phone] Encounters Encounter Location Date Provider Diagnosis [address] [phone] 03/20/2025 Francine Patrice Plan Of Treatment Next Appt Details Provider Name:Francine Ibrahim , 2025 01:30:00 PM, [address] [place] [address], [phone], Progress Notes * Alireza ROWAN MDOB: 4 (79 yo M)Acc No.[id number]:03/20/2025 Progress Note Patient: Alireza DENNISON Provider: Wen Ibrahim DPM :1945 A ge:79 Y S ex:Male Date:03/20/2025 Address:[address] [place] [id number] Pcp:Amol Yepez Subjective: * Chief Complaints: * [...] 03/20/2025 Generated for Floyd robertson/Marquis/Lorenzo on: 1 2024 05:19 PM EST
[2025-05-14 14:14] VITALS: BP 118/60; PULSE 87; BMI 26.7
--- NOTE | 2025-05-14 14:14 | A.OFFVIS_ITS ---
Vital Signs 05/14/25 14:14 Height 5 ft 11 in Weight 191 lb 12.835 oz BMI 26.7 BP 118/60 Blood Pressure Location Lt brachial Position Sitting Pulse 87 Pulse Source Pulse Oximeter Intake Visit Reasons: 1M FOLLOW UP/ pt req family meeting Allergies cephalexin (Keflex) Allergy (Intermediate, Verified 05/12/25 15:08) hives levofloxacin Allergy (Intermediate, Verified 05/12/25 15:08) Hives cetirizine (From [facility]) Adverse Reaction (Intermediate, Verified 05/12/25 15:08) Fatigue Medication List - Last Reconciled 05/14/25 by Delano Keller MD acetaminophen 500 mg PO Q6H PRN apixaban (Eliquis) 2.5 mg PO BID 30 days aspirin 81 mg PO DAILY blood sugar diagnostic (VookTouch Verio test strips) use 1 strip once a day to test blood sugar blood-glucose meter (VookTouch Verio Flex Meter) As directed bumetanide 2 mg See Protocol PO DAILY erythromycin 1 cm ophthalmic (eye) QID Farxiga (dapagliflozin propanediol) 10 mg PO DAILY NS lancets (Accu-Chek Softclix Lancets) use 1 lancet daily to test blood sugar polyethylene glycol 3350 17 grams PO DAILY sennosides (Senna Lax) 8.6 mg PO DAILY PRN spironolactone 12.5 mg See Protocol PO DAILY tamsulosin 0.4 mg PO DAILY 90 days triamcinolone acetonide 0.1% 1 appl See Protocol topical BID zinc oxide-gauze bandage 12 %- 4 X 10 yard (Unna Boot) As directed HPI Comments Details: Alireza returns for follow-up regarding atrial fibrillation, congestive heart failure and a issues. To recall, he went to [place] and had a long hospitalization for congestive heart failure, pulmonary edema pleural effusions. Blood pressure had been markedly high as much into the 200s. After long hospitalization he was eventually discharged home. After this, patient was readmitted to [place]. In that admission, again priyanka geovanna to have acute on chronic systolic heart failure and put on diuretics. In that note, mentioned that heart failure exacerbation was due to stopping diuretics from [facility]. After that, he saw him in clinic and he was doing okay but there was one further hospitalization for congestive heart failure. Per admission notes at that time, it seems diuretics might have been cut back leading to the hospitalization. Any case, he is again slowly improving. Shortness of breath is back to his usual baseline. No significant leg swelling. Otherwise, frail but getting along. [facility] Medical History (Updated 05/14/25 @ 14:57 by Delano Keller MD) Acute respiratory failure with hypercapnia Acute exacerbation of congestive heart failure CKD (chronic kidney disease) Congestive heart failure Cardiomyopathy Persistent atrial fibrillation Pulmonary edema Pleural effusion Stasis dermatitis of both legs History of congestive heart failure Physical deconditioning Weakness Hypertensive retinopathy Posterior vitreous detachment, left eye Epiphora due to excess lacrimation of right side Senile ectropion of right lower eyelid BPH (benign prostatic hyperplasia) Type 2 diabetes mellitus without complication, with no history of insulin use Normocytic anemia Thrombocytopenia COVID-19 vaccine series completed 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 Social History Household Members: None Housing: House Are you a primary respiratory care practitioner to a significant other at home: No Do you presently have visiting nurse or other home services: Yes (patient has visiting nurse and physical therapy once a week) Patient Tobacco Use Status: Never used Tobacco e-Cigarette/Vaping Use: Never Used Second Hand Smoke Exposure: Yes Advance Directives Date on File: 12/28/23 service: No Current occupational status: retired Cognitive needs: No Hearing needs: No Vision needs: Yes Review of Systems Const Denies weakness ENT Denies dizziness Card Denies chest pain, Denies chest pain with activity, Denies syncope, Denies rapid heart rate, Denies pedal edema, Denies edema, Denies leg edema, Denies lightheadedness, Denies palpitations, Denies dyspnea, Denies dyspnea on exertion and Denies orthopnea Resp Denies cough, Denies dyspnea and Denies dyspnea on exertion GI Denies hematochezia and Denies change in stool character Musc Denies abnormal gait, Denies muscle cramps, Denies muscle weakness, Denies numbness, Denies radiating pain into limb and Denies tingling Neuro Denies abnormal gait, Denies dizziness, Denies syncope, Denies numbness, Denies tingling and Denies weakness Endo Denies palpitations Physical Exam Vital Signs: Last Vital Signs Pulse 87 05/14/25 14:14 BP 118/60 05/14/25 14:14 BMI result Body Mass Index 26.7 Const General: comfortable and no acute distress Orientation/consciousness: patient oriented x3 HEENT Other: Unremarkable Head: Yes normal to inspection Neck Neck: Yes normal visual inspection Chest Chest palpation & inspection: normal inspection of the chest Resp Auscultation: clear to auscultation bilaterally Cardio Palpation: normal PMI Heart sounds: S1 normal heart sound present, S2 normal heart sound present, no gallops, no murmurs and no rubs GI Palpation (GI): Soft to palpation Back/Spine/Pelvis Other: unremarkable Skin General skin exam: no rashes or lesions noted Neuro General: patient oriented x3 Extrem General: Yes normal to inspection Psych Mental Status: mental status grossly normal Assessment & Plan Assessment & Plan (1) Persistent atrial fibrillation: Code(s): I48.19 - Other persistent atrial fibrillation Category: Medical Plan: Previously on beta-blockers but not in his list anymore. Continue Eliquis. Creatinine levels have been up and down. If it remains stable, we can go up on the dose to 5 mg b.i.d.. (2) Chronic diastolic (congestive) heart failure: Code(s): I50.32 - Chronic diastolic (congestive) heart failure Category: Medical Plan: In the most recent echocardiogram, LVEF is 50-55%. Prior to that, variable EF in the 40-45% range, 55-60% at different times. There was also pulmonary hypertension which is probably related to left heart dysfunction. Myocardial perfusion imaging study in the past without any definitive findings of any ischemia or infarction. Due to recurrent CHF admissions, we will need to reassess for ischemia. May need a diagnostic catheterization based on the stress test findings. Remote cardiac catheterization 2008. Minimal irregularities only. Her diuretic regimen is Bumex 2 mg daily. Also on Farxiga. Spironolactone. No changes made today. We discussed at length regarding various lifestyle measures including salt and fluid restriction, monitoring for shortness of breath, swelling, weight gain extra. We will need diuretic adjustments accordingly. We will make a formal dietitian referral. (3) Essential hypertension: Code(s): I10 - Essential (primary) hypertension Category: Medical Plan: Currently stable. (4) Stenosis of right carotid artery: Code(s): I65.21 - Occlusion and stenosis of right carotid artery Category: Medical Plan: Recent neck CTA with 75-80% stenosis in the right internal carotid artery. He is going to be high-risk for vascular surgery. Anyway, he has pending appointment with them. Plan Discussion Notes During the visit, we discussed the management of congestive heart failure, emphasizing the importance of balancing fluid intake and diuretic use to prevent exacerbations and protect kidney function. We also reviewed the patient's atrial fibrillation management plan, ensuring that current medications are effective in maintaining rhythm control. The patient was informed about the risks associated with carotid artery stenosis and the need for a vascular surgery consultation to explore treatment options. We discussed the importance of dietary modifications, particularly a low sodium diet, to manage congestive heart failure. Patient was informed and verbally consented to the use of an ambient scribe for clinic note documentation during this visit. Orders: Orders CA lexiscan stress w leland Today I50.32 - Chronic diastolic (congestive) heart failure NM cardiolite stress test Today I50.32 - Chronic diastolic (congestive) heart failure Referrals Fire Supervisor Nutrition Referral I50.9 - Heart failure, unspecified Coding Level of Care Code Est Pt Level 4 (64927) Complex EM visit Add On G2211 Diagnoses Persistent atrial fibrillation I48.19 Chronic diastolic (congestive) heart failure I50.32 Essential hypertension I10 Stenosis of right carotid artery I65.21
--- OUTSIDE RECORDS SUMMARY | 2025-05-14 17:19 | XMS_ITS | Patient Health Record ---
Author Organization [facility] Address [address] [place] [address] Care Team Providers Care Medical Insurance Coding Specialist Name Role Phone John PENNY, Latoya Primary Care Provider Isma Vu Unavailable [phone] Allergies Allergen (clinical drug ingredient) Drug/Non Drug [...] Problem Screening for malignant neoplasm of colon (659529224) Encounter for screening for malignant neoplasm of colon (Z12.11) Active confirmed Problem History of adenomatous polyp of colon (306710642) History of adenomatous polyp of colon (Z86.010) Active confirmed Problem Iron deficiency anemia (69781773) Iron deficiency anemia (D50.9) Active confirmed Problem Preprocedural examination (073995464850141) Preprocedural examination (Z01.818) Active confirmed Problem History of polyp of colon (situation) (470084848) History of colon polyps (Z86.010) Active confirmed Problem Anemia (517925661) Anemia (D64.9) Active confirmed Problem Long-term current use of antiplatelet drug (948057168106330) Long-term use of aspirin therapy (Z79.82) Active confirmed Problem Constipation (68311988) Constipation, unspecified constipation type (K59.00) Active confirmed Problem Iron deficiency anemia (74293512) Other iron deficiency anemia (D50.8) Active confirmed Problem Long-term current use of anticoagulant (364075208) Anticoagulant long-term use (Z79.01) Active confirmed Problem Iron deficiency anemia (04096903) Iron deficiency anemia, unspecified iron deficiency anemia type (D50.9) Active confirmed Problem Mucosal abnormality of duodenum (K31.9) Active confirmed Problem Diverticulosis of colon (466363067) Diverticulosis of colon (K57.30) Active confirmed Vital Signs Temperature 97.8 degrees Fahrenheit 04/08/2025 Blood pressure diastolic 01 mm Hg 04/08/2025 Height 70 in 04/08/2025 Blood pressure systolic 001 mm Hg 04/08/2025 Weight 226.4 lbs 04/08/2025 BMI 32.48 kg/m2 04/08/2025 Encounters Encounter Location Date Provider Diagnosis [facility] [address] [place] [address] 04/08/2025 Isma Yepez Anemia D64.9 Assessments Encounter [...] iron and folic acid, or B12 shots, We did review that I do not think he would require any further endoscopic intervention on my part, particularly in light of his significant medical issues at the present time. If things are stable from a GI standpoint he would otherwise see me on an as needed basis. I did advise him and his [id number] to certainly call if he has any questions or problems I can be of assistance with. They were both very comfortable with this plan. Thank you again for allowing me to have participated in Alireza's care. I shall continue to keep you advised of his progress.as needed Please do not hesitate to contact me if I can be of any further assistance in the future. Plan Of Treatment Pending Test Test Name Order Date IRON + IBC (FE) 04/12/2022 IRON + IBC (FE) 04/08/2025 IRON + IBC (FE) 10/04/2021 IRON + IBC (FE) 08/08/2023 VITAMIN B12 AND FOLATE 10/04/2021 VITAMIN B12 AND FOLATE 08/08/2023 CBC w DIFF 10/04/2021 CBC w DIFF 08/08/2023 CBC w DIFF 04/12/2022 CBC w DIFF 04/08/2025 CELIAC PANEL #10 08/08/2023 CELIAC PANEL #10 09/17/2021 Ferritin 04/08/2025 Ferritin 10/04/2021 Vitamin B12 and Folate 04/08/2025 Future Test Test Name Order Date COLONOSCOPY 08/27/2013 COLONOSCOPY 03/21/2017 COLONOSCOPY 04/07/2020 UPPER GI ENDOSCOPY 08/06/2021 COLONOSCOPY 08/06/2021 Insurance Providers Payer Name Payer Address Payer Phone Subscriber Number Group Number Insured Name Patient Relationship to Insured Coverage Start Date Coverage End Date [facility] [address] [address] [place] [address] [id number] ALIREZA ROWAN Self - patient is the insured Medical (General) History Medical History History ICD Code Colonoscopy 07-20-2007 and 2003- tubular adenomas removed Hyperlipidemia NIDDM Hypertension Denies GA,CVA,Lung disease,renal disease BPH Colonoscopy in 04/2013 with [...]
--- OUTSIDE RECORDS SUMMARY | 2025-05-14 17:19 | XMS_ITS | Patient Health Record ---
Author Organization [facility] Address [address] [place] [address] Care Team Providers Care Manager Estate Name Role Phone John PENNY, Latoya Negrete Primary Care Provider Un available Black, Francine Unavailable [phone] Allergies Allergen (clinical drug ingredient) Drug/Non Drug [...] Polyneuropathy due to type 2 diabetes mellitus (932666220) Type 2 diabetes mellitus with diabetic polyneuropathy (E11.42) Active confirmed Vital Signs Blood pressure diastolic 76 mm Hg 01/09/2025 Height 5 ft 10 in in 01/09/2025 Blood pressure systolic 120 mm Hg 01/09/2025 Weight 228 lbs 01/09/2025 BMI 32.71 kg/m2 01/09/2025 Procedures Procedure Date Ordered Date Performed Result Body Sit e 10809-QSXCXZD NAIL, 6 OR MORE 06/03/2024 N/A 60079-IIQL SKIN LESIONS, OVER 4 06/03/2024 N/A 62987-RDEPDRO NAIL, 6 OR MORE 09/09/2024 N/A 67351-Xpuhyhrr Plate 09/09/2024 N/A 90835-DNCF SKIN LESIONS, OVER 4 09/09/2024 N/A 59306-Vdkegwkl Plate 10/09/2024 N/A 56624-FZGSUNK NAIL, 6 OR MORE 12/16/2024 N/A 15491-Zmqpuyiu Plate 12/16/2024 N/A 83214-CUBR SKIN LESIONS, OVER 4 12/16/2024 N/A 14546-Byskglpt Plate 01/09/2025 N/A 69552-Kwiiautw Plate Each Additional 01/09/2025 N/A Encounters Encounter Location Date Provider Diagnosis [address] [address] 06/03/2024 Francine Black Type 2 diabetes mellitus with diabetic polyneuropathy E11.42 ; Tinea unguium B35.1 ; Ingrown nail L60.0 and Edema, lower extremity R60.[address] [address] 09/09/2024 Francine Black Type 2 diabetes mellitus with diabetic polyneuropathy E11.42 ; Other hammer toe(s) (acquired), right foot M20.41 ; Tinea unguium B35.1 ; Ingrown nail L60.0 ; Edema, lower extremity R60.0 and Other hammer toe(s) (acquired), left foot M20.[address] [address] 10/09/2024 Francine Black Ingrown nail L60.0 a nd Type 2 diabetes mellitus with diabetic polyneuropathy E11.[address] [address] 12/16/2024 Francine Black Type 2 diabetes mellitus with diabetic polyneuropathy E11.42 ; Edema, lower extremity R60.0 ; Ingrown nail L60.0 and Tinea unguium B35.[address] [address] 01/09/2025 Francine Black Ingrown nail L60.0 a nd Type 2 diabetes mellitus with diabetic polyneuropathy E11.42 [facility] [place] [address] [place] [address] 10/08/2024 Francine Ibrahim [facility] [address] [address] 01/08/2025 Francine Ibrahim [facility] [address] [address] 03/20/2025 Francine Patrice Assessments Encounter Date Diagnosis (ICD Code) Assessment [...] Order Date Microalbumin, 24 hr Urine 06/23/2015 39763-WTNADCI NAIL, 6 OR MORE 12/16/2024 31731-LRJOXRC NAIL, 6 OR MORE 02/02/2023 14286-PROLWTH NAIL, 6 OR MORE 05/11/2023 16459-ZUQHJHY NAIL, 6 OR MORE 08/10/2023 01085-JFBDZEY NAIL, 6 OR MORE 11/13/2023 52711-VRTOVSE NAIL, 6 OR MORE 02/26/2024 62982-HFDIXTX NAIL, 6 OR MORE 06/03/2024 25521-WMZBXSJ NAIL, 6 OR MORE 09/09/2024 15524-YGBXUNU NAIL, 6 OR MORE 05/05/2011 38119-QQVOVHD NAIL, 6 OR MORE 09/19/2011 37811-TGYRARD NAIL, 6 OR MORE 11/03/2011 75550-DWOSLAZ NAIL, 6 OR MORE 12/05/2011 30599-ORMXIHT NAIL, 6 OR MORE 11/27/2012 45908-HCQTZHU NAIL, 6 OR MORE 07/29/2013 57442-YLSIATI NAIL, 6 OR MORE 01/27/2014 63340-QXYVYKG NAIL, 6 OR MORE 09/04/2015 52323-TEUIZAA NAIL, 6 OR MORE 12/02/2015 34642-BYZDBSV NAIL, 6 OR MORE 02/08/2016 33409-EABNMMO NAIL, 6 OR MORE 04/25/2016 35176-QEKPUFY NAIL, 6 OR MORE 07/11/2016 26073-OVTKHDO NAIL, 6 OR MORE 09/08/2016 79835-VLERFUS NAIL, 6 OR MORE 11/17/2016 23470-CSMJEPY NAIL, 6 OR MORE 02/02/2017 10927-UYZNXNQ NAIL, 6 OR MORE 04/11/2017 93771-KSHFREU NAIL, 6 OR MORE 07/05/2017 33074-QVALXYE NAIL, 6 OR MORE 09/14/2017 33736-NRGSCJX NAIL, 6 OR MORE 11/20/2017 49241-IQQFHJI NAIL, 6 OR MORE 01/29/2018 42945-KTCUZLH NAIL, 6 OR MORE 06/12/2018 64058-ENLATPP NAIL, 6 OR MORE 08/27/2018 68608-FGNGSBH NAIL, 6 OR MORE 11/05/2018 14877-ZQKENJL NAIL, 6 OR MORE 03/05/2019 08236-ZXHBRKF NAIL, 6 OR MORE 05/13/2019 85588-KOSVYVG NAIL, 6 OR MORE 08/05/2019 14354-JRFZXKS NAIL, 6 OR MORE 10/28/2019 07043-FGZEMDQ NAIL, 6 OR MORE 03/26/2020 05036-OWAIYZC NAIL, 6 OR MORE 12/23/2019 45092-HXWDJFX NAIL, 6 OR MORE 06/11/2020 71370-VFAVTNF NAIL, 6 OR MORE 08/20/2020 76375-ZNFYHKC NAIL, 6 OR MORE 10/22/2020 16281-XULPIIJ NAIL, 6 OR MORE 12/31/2020 93797-JOBFSHY NAIL, 6 OR MORE 04/19/2021 13786-TDKJMOW NAIL, 6 OR MORE 07/15/2021 39247-RUJNUUK NAIL, 6 OR MORE 10/04/2021 17802-VSTYFYD NAIL, 6 OR MORE 02/08/2022 56328-LYVIWXA NAIL, 6 OR MORE 04/25/2022 19932-EOZBTEB NAIL, 6 OR MORE 08/01/2022 64002-UDHJBJW NAIL, 6 OR MORE 11/03/2022 74675-UBRKHRO NAIL, 1-5 04/03/2015 83317-KZEWVLJ NAIL, 1-5 06/16/2015 51751-TRBDAHZ NAIL, 1-5 07/28/2014 74122-GENQTZC NAIL, 1-5 04/30/2012 73810-BIBZEYW NAIL, 1-5 11/27/2014 35784-HMFMXNG NAIL, 1-5 01/26/2015 88246-Rvwr Destruction, 1-14 04/25/2022 88376-Kbct Destruction, 1-14 08/01/2022 89604-Fzjd Destruction, 1-14 11/03/2022 51134-Bphkknex Plate 09/09/2024 26154-Rpdygsud Plate 10/09/2024 82212-Cnluryoq Plate 02/26/2024 31366-Anardhuu Plate 11/13/2023 61443-Thfjkvfk Plate 12/16/2024 47526-Ipbaginr Plate 01/09/2025 56127-Rjzmzchi Plate 11/03/2022 73533-Pgkvppav Plate 02/02/2023 31342-Sgwqtzfi Plate 02/08/2022 81565-Yjlmktko Plate 10/04/2021 79658-Gfobasnk Plate 10/28/2019 09951-Imleojlg Plate 04/19/2021 77951-Jgbzercx Plate 12/31/2020 71625-Slyrugja Plate 01/16/2020 70859-Cfzcfhyg Plate 01/23/2020 12780-Uocotuva Plate 03/05/2019 30893-Giblnjfe Plate 05/13/2019 50644-Yofynspb Plate 08/27/2018 83821-Poqdsmgc Plate 01/29/2018 83350-Qoajvarw Plate 06/12/2018 48271-Avhnmyzf Plate 01/26/2015 93439-Dbefzpmz Plate 04/03/2015 20927-Tfjuftkq Plate 01/27/2014 72912-Byayenva Plate 03/13/2014 15432-Bmzvvjws Plate 07/29/2013 70050-Lkdyvwdz Plate 11/27/2012 06631-Ohkevnan Plate 03/09/2012 91787-Oiqsjdto Plate 04/30/2012 49980-Eynsubtd Plate 12/05/2011 16913-Yjhdvygp Plate 02/23/2012 44528-Rlyryzcg Plate 11/03/2011 22137-Izvftewh Plate 09/19/2011 28324-Wwrponmm Plate 05/05/2011 31292-Vesaorvg Plate 06/06/2011 47278-Avofmtcv Plate 07/28/2014 05701-Kksivzyq Plate 11/27/2014 62329-Xocrqyhw Plate 07/11/2016 69264-Vfviiggx Plate 04/25/2016 94319-Kpdspzmr Plate 09/14/2017 72402-Ijkuzqno Plate 04/11/2017 49193-Wtzvdxrn Plate 02/08/2016 01206-Lbhybifw Plate 11/17/2016 81983-Fgrpwgbf Plate 09/08/2016 15988-Tdtlcatq Plate Each Additional 81884-Ckykmiwy Plate Each Additional 09/2011 40871-Ssltzbdx Plate Each Additional 66932-Ofltyxrd Plate Each Additional 01/2012 29963-Ntwadzit Plate Each Additional 20478-Okiqzouk Plate Each Additional 42312-Qzxohsqe Plate Each Additional 81546-Mrtzsqeg Plate Each Additional 07/2020 10421-Evfyxefb Plate Each Additional 03/2022 69616-Zaoxkfyv Plate Each Additional 04/2025 14100-AYC 01/11/2012 40497- Debride <25 sq cm 01/30/2012 62116- Debride <25 sq cm 02/23/2012 14959- Debride <25 sq cm 04/30/2012 64078- Debride <25 sq cm 04/24/2017 75145- Debride <25 sq cm 01/30/2020 19653- Debride <25 sq cm 02/13/2020 90172- Debride <25 sq cm 02/27/2020 57797- Debride <25 sq cm 01/23/2020 83383- Debride <25 sq cm 03/26/2020 67976- Debride <25 sq cm 04/06/2020 12480-XBKUPNL SKIN/TISSUE 03/09/2012 09796 I&D ABSCESS- SIMPLE,SINGLE 014 55901 I&D ABSCESS- SIMPLE,SINGLE 022 61454-QLGA SKIN LESIONS, OVER 4 10/05/19 22 03672-NMAC SKIN LESIONS, OVER 4 08/01/19 23 32892-TKMM SKIN LESIONS, OVER 4 04/25/20 22 57693-IXML SKIN LESIONS, OVER 4 02/03/20 23 74998-USNN SKIN LESIONS, OVER 4 11/04/19 23 85942-ZYBQ SKIN LESIONS, OVER 4 12/23/19 20 68170-VRVR SKIN LESIONS, OVER 4 10/28/19 20 98702-HQIV SKIN LESIONS, OVER 4 08/27/19 19 01919-BEOX SKIN LESIONS, OVER 4 06/12/20 18 19433-PUGY SKIN LESIONS, OVER 4 01/30/20 18 04669-GWNC SKIN LESIONS, OVER 4 11/06/19 19 52490-OJEN SKIN LESIONS, OVER 4 03/05/20 19 78652-PQHR SKIN LESIONS, OVER 4 05/13/20 19 56134-GCKL SKIN LESIONS, OVER 4 08/05/19 20 66352-NACW SKIN LESIONS, OVER 4 04/03/20 15 08285-IAQB SKIN LESIONS, OVER 4 07/05/19 18 73800-UCQX SKIN LESIONS, OVER 4 04/11/20 17 64154-ARJT SKIN LESIONS, OVER 4 11/21/19 18 24371-YYUC SKIN LESIONS, OVER 4 09/15/19 18 08338-SWTE SKIN LESIONS, OVER 4 11/18/19 17 86562-FZLT SKIN LESIONS, OVER 4 09/09/19 17 52503-PQHY SKIN LESIONS, OVER 4 02/03/20 17 27020-DNKU SKIN LESIONS, OVER 4 04/25/20 16 02086-JCVD SKIN LESIONS, OVER 4 07/11/19 17 27942-QGDD SKIN LESIONS, OVER 4 02/08/20 16 25867-NGRJ SKIN LESIONS, OVER 4 12/02/19 16 00513-QITO SKIN LESIONS, OVER 4 09/04/19 16 09067-ADOX SKIN LESIONS, OVER 4 06/16/20 15 14936-AJKD SKIN LESIONS, OVER 4 11/13/19 24 94778-MCVM SKIN LESIONS, OVER 4 02/26/20 24 47332-EDPY SKIN LESIONS, OVER 4 08/10/19 24 89723-IYBZ SKIN LESIONS, OVER 4 05/11/20 23 43081-DQCO SKIN LESIONS, OVER 4 12/17/19 25 97936-QQZX SKIN LESIONS, OVER 4 09/10/19 25 08229-NDRQ SKIN LESIONS, OVER 4 06/03/20 24 09374-GJRD SKIN LESIONS, 2 TO 4 03/26/20 20 16231-OIBJ SKIN LESIONS, 2 TO 4 06/11/20 20 16881-BAIE SKIN LESIONS, 2 TO 4 08/20/19 21 40436-TKUX SKIN LESIONS, 2 TO 4 02/09/20 22 65124-XKJG SKIN LESIONS, 2 TO 4 07/15/19 22 19214-LGJA SKIN LESIONS, 2 TO 4 04/19/20 21 94522-HFWA SKIN LESIONS, 2 TO 4 01/01/20 21 21691-FJZB SKIN LESIONS, 2 TO 4 10/23/19 21 L0348-ULYGABGO DYSTROPHIC NAILS ANY # Next Appt Details Provider Name:Francine Ibrahim , 2025 01:30:00 PM, [address] [facility], [place], [address], Insurance Providers Payer Name Payer Address Payer Phone Subscriber Number Group Number Insured Name Patient Relationship to Insured Coverage Start Date Coverage End Date [employer] Medicare Adv-[id number] [address] [address] [place] [address] [id number] Alireza Gabriel Self - patient is the insured 6 Medical (General) History Medical History History ICD Code mumps back, hip, knee pain type II diabetes Hay fever Other hammer toe(s) (acquired), right fo ot M20.41 Other hammer toe(s) (acquired), left jasmin t M20.42 Surgical History Surgery Date(Month/Year) left knee arthroscopy 1995 left knee replacement 08/28/2012
== END 2025-05-14 14:49 | disposition home or self-care (01) ==
LOC: HO.HCS 14:04
PROVIDERS: PCP Internal Medicine; Visit Provider Internal Medicine
DX: I48.19 Other persistent atrial fibrillation (principal); I50.32 Chronic diastolic (congestive) heart failure; I10 Essential (primary) hypertension; I65.21 Occlusion and stenosis of right carotid artery
CPT/HCPCS: 99214; G2211

== ENCOUNTER → 2025-05-14 14:03 | Outpatient (BNVA) | payer MEDICARE, SELFPAY | PROVIDERS: PCP Internal Medicine; Visit Provider Internal Medicine | DX: I48.19 Other persistent atrial fibrillation (principal); I11.0 Hypertensive heart disease with heart failure; I50.32 Chronic diastolic (congestive) heart failure; I65.21 Occlusion and stenosis of right carotid artery | CPT/HCPCS: 99212 ==

== ENCOUNTER 2025-05-15 09:17 | Outpatient (AMB) | payer MEDICARE, SELFPAY ==
--- OUTSIDE RECORDS SUMMARY | 2025-03-20 09:45 | XMS_ITS ---
Author Organization [facility] Address [address] [place] [phone] Care Team Providers Care Report Clerk Name Role Phone John PENNY, Latoya Negrete Primary Care Provider Un available Francine Ibrahim Ciro [phone] Encounters Encounter Location Date Provider Diagnosis [address] [address] 03/20/2025 Francine Patrice Plan Of Treatment Next Appt Details Provider Name:Francine Ibrahim , 2025 01:30:00 PM, [address] [place] [address], [phone], Progress Notes * Alireza ROWAN MDOB: 4 (79 yo M)Acc No.[id number]:03/20/2025 Progress Note Patient: Alireza DENNISON Provider: Wen Ibrahim DPM :1945 A ge:79 Y S ex:Male Date:03/20/2025 Address:[address] [place] [phone] Pcp:Amol Yepez Subjective: * Chief Complaints: * * Medical History: Objective: * Vitals: Assessment: Plan: * Treatment: * Images: * The named appointment provid er may or may not be the originator of this progress note, and it is not deemed complete until electronically signed by the appointment provider. Sign off status: Pending * Provider: Wen Ibrahim DPM Date: 0 03/20/2025 Generated for Floyd robertson/Marquis/Lorenzo on: 1 07/15/2024 10:34 AM EST
[2025-05-15 09:19] VITALS: BP 126/60; PULSE 96; O2SAT 99; BMI 27.2
--- NOTE | 2025-05-15 09:19 | MHC.OFFVIS ---
Vital Signs 05/15/25 09:19 Height 5 ft 11 in Weight 195 lb 1.745 oz BMI 27.2 BP 126/60 Blood Pressure Location Lt brachial Position Sitting Pulse 96 Pulse Source Pulse Oximeter Pulse Oximetry (%) 99 Oxygen Delivery Method Room Air Intake Visit Reasons: Resp Failure Compress Engineer Required: No Accompanied by: Daughter Allergies cephalexin (Keflex) Allergy (Intermediate, Verified 05/15/25 09:24) hives levofloxacin Allergy (Intermediate, Verified 05/15/25 09:24) Hives cetirizine (From Zyrtec) Adverse Reaction (Intermediate, Verified 05/15/25 09:24) Fatigue HPI Comments Details: The patient is a 79-year-old male who presented to hospital for shortness of breath. 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 Patient then began with worsening shortness of breath on minimal exertion. On arrival, patient is saturating 84% on room air, with rales, 2+ pitting edema. ProBNP 296. Chest x-ray with pulmonary edema and bilateral pleural effusions. Patient received 40 mg of IV Lasix. At this time patient states then he continued to feel short of breath on minimal exertion. Patient does not recall dose of Lasix, however on chart review patient was recently prescribed Bumex 1 mg b.i.d. on 03/04/2025. Now in the hospital he was placed on a Lasix drip. Seems to be tolerating it well diuresing well. He had a repeat chest x-ray still demonstrating bilateral bibasilar opacities with bilateral large pleural effusions which I reviewed. In addition to that he had a CT scan of chest personally by me demonstrating large pleural effusions also with significant pulmonary edema and bilateral atelectasis. In addition to that while in the hospital the patient did develop respiratory failure requiring BiPAP due to acute on chronic hypercarbic respiratory failure. Now he is requiring BiPAP for worsening acidosis. The patient does require BiPAP nocturnally. Seems to be tolerating the 18/8 pressures well which will continue. 05/15/2025 the patient is here for hospital follow-up visit. The patient had been at rehabilitation. 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 Now he did get have BiPAP delivered at home. The current settings were 18/8 with a respiratory rate of 16. He had a very hard time tolerating it. He does have a fullface mask. The family call. We had a bring it in. In the meantime he continues to breathe okay. He was discharged from the rehab without any oxygen which is reassuring. While in the hospital he did undergo 2 thoracentesis both consistent with transudative effusions from his underlying congestive heart failure. He continues with diuresis as tolerated. Cardioprotective medications as well. He follows up closely with Cardiology. He did bring in the BiPAP in. We did adjust the pressures initially by placing a ramp of 6 cm. In addition to that decrease the pressures to 14/7. Seems to tolerate that better. I brought the respiratory rate down from 16 to 12. He is going to start use more regularly specially during the daytime and also at nighttime. He will get blood work in the next 10-14 days. Will assess his blood gas and also assess his chest x-ray. Respiratory exam is reassuring. We did review his vaccines. He is due for his pneumonia vaccine. He will get that at the pharmacy. [facility] Medical History (Updated 05/15/25 @ 21:22 by Tal Pompa MD) JASS (obstructive sleep apnea) Chronic hypercapnic respiratory failure Pleural effusion Acute respiratory failure with hypercapnia Acute exacerbation of congestive heart failure CKD (chronic kidney disease) Congestive heart failure Cardiomyopathy Persistent atrial fibrillation Pulmonary edema Stasis dermatitis of both legs History of congestive heart failure Physical deconditioning Weakness Hypertensive retinopathy Posterior vitreous detachment, left eye Epiphora due to excess lacrimation of right side Senile ectropion of right lower eyelid BPH (benign prostatic hyperplasia) Type 2 diabetes mellitus without complication, with no history of insulin use Normocytic anemia Thrombocytopenia COVID-19 vaccine series completed 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 Social History Household Members: None Housing: House Are you a primary menagerie caretaker to a significant other at home: No Do you presently have visiting nurse or other home services: Yes (patient has visiting nurse and physical therapy once a week) Patient Tobacco Use Status: Never used Tobacco e-Cigarette/Vaping Use: Never Used Second Hand Smoke Exposure: Yes Advance Directives Date on File: 12/28/23 service: No Current occupational status: retired Cognitive needs: No Hearing needs: No Vision needs: Yes Review of Systems Const Denies fever(s) ENT Denies dizziness Card Denies chest pain, Denies chest pain with activity, Denies rapid heart rate, Denies palpitations and Reports dyspnea on exertion Resp Denies cough and Reports dyspnea on exertion GI Denies hematochezia and Denies change in stool character Musc Denies abnormal gait Neuro Denies abnormal gait and Denies dizziness Endo Denies palpitations Physical Exam Vital Signs: Last Vital Signs Pulse 96 05/15/25 09:19 BP 126/60 05/15/25 09:19 Pulse Ox 99 05/15/25 09:19 Oxygen Delivery Method Room Air 05/15/25 09:19 BMI result Body Mass Index 27.2 Last Vital Signs Temp 97.9 F 04/21/25 16:00 Pulse 97 04/21/25 16:00 Resp 18 04/21/25 16:00 BP 127/58 L 04/21/25 16:00 Pulse Ox 95 04/21/25 16:00 O2 Del Method Nasal Cannula 04/21/25 16:00 O2 Flow Rate 2 04/21/25 16:00 FiO2 25 04/17/25 16:00 BMI result Body Mass Index 32.8 Const General: no acute distress, alert and awake HEENT Head: Yes normocephalic Neck Neck: Yes trachea midline and Yes supple Chest Chest palpation & inspection: normal inspection of the chest Resp Effort & Inspection: normal respiratory effort Auscultation: diminished lung sounds Cardio Rhythm: abnormal rhythm irregularly irregular Heart sounds: S1 normal heart sound present and S2 normal heart sound present GI Palpation (GI): Soft to palpation Auscultation: normal bowel sounds Skin General skin exam: no rashes or lesions noted and ecchymosis Neuro General: moves all extremities Extrem General: Yes no clubbing, cyanosis or edema Assessment & Plan Assessment & Plan (1) Pleural effusion: Code(s): J90 - Pleural effusion, not elsewhere classified Category: Medical (2) Chronic diastolic (congestive) heart failure: Code(s): I50.32 - Chronic diastolic (congestive) heart failure Category: Medical (3) Chronic hypercapnic respiratory failure: Code(s): J96.12 - Chronic respiratory failure with hypercapnia Category: Medical (4) JASS (obstructive sleep apnea): Code(s): G47.33 - Obstructive sleep apnea (adult) (pediatric) Category: Medical Plan conitnue BIPAP 18/8->14/7 with ramp 6 Diuresis as tolerated CXR Bloodwork, blood gas F/U 2-3 months Orders: Orders XR chest 2V Today I50.32 - Chronic diastolic (congestive) heart failure, J90 - Pleural effusion, not elsewhere classified Venous Blood Gas Today I50.32 - Chronic diastolic (congestive) heart failure, J90 - Pleural effusion, not elsewhere classified Complete Blood Count Auto Diff Today I50.32 - Chronic diastolic (congestive) heart failure, J90 - Pleural effusion, not elsewhere classified Basic Metabolic Panel Today I50.32 - Chronic diastolic (congestive) heart failure, J90 - Pleural effusion, not elsewhere classified Erythrocyte Sedimentation Rate Today I50.32 - Chronic diastolic (congestive) heart failure, J90 - Pleural effusion, not elsewhere classified NT Pro B Type Natriuretic Pept Today I50.32 - Chronic diastolic (congestive) heart failure, J90 - Pleural effusion, not elsewhere classified Coding Level of Care Code Est Pt Level 5 (93372) Diagnoses Pleural effusion J90 Chronic diastolic (congestive) heart failure I50.32 Chronic hypercapnic respiratory failure J96.12 JASS (obstructive sleep apnea) G47.33 Time Spent (min) 45
--- OUTSIDE RECORDS SUMMARY | 2025-05-15 10:35 | XMS_ITS | Patient Health Record ---
Author Organization [facility] Address [address] [place] [address] Care Team Providers Care Tobacco Curer Name Role Phone John PENNY, Latoya Negrete Primary Care Provider Un available Black, Francine Unavailable [phone] Allergies Allergen (clinical drug ingredient) Drug/Non Drug [...] Polyneuropathy due to type 2 diabetes mellitus (931322666) Type 2 diabetes mellitus with diabetic polyneuropathy (E11.42) Active confirmed Vital Signs Blood pressure diastolic 76 mm Hg 01/09/2025 Height 5 ft 10 in in 01/09/2025 Blood pressure systolic 120 mm Hg 01/09/2025 Weight 228 lbs 01/09/2025 BMI 32.71 kg/m2 01/09/2025 Procedures Procedure Date Ordered Date Performed Result Body Sit e 25394-FGHDRBU NAIL, 6 OR MORE 06/03/2024 N/A 53946-JZYL SKIN LESIONS, OVER 4 06/03/2024 N/A 80665-FXFYQUK NAIL, 6 OR MORE 09/09/2024 N/A 63250-Jsywmvnv Plate 09/09/2024 N/A 24742-WIZH SKIN LESIONS, OVER 4 09/09/2024 N/A 87265-Innikpyj Plate 10/09/2024 N/A 97589-MKKLOKK NAIL, 6 OR MORE 12/16/2024 N/A 22397-Xnlapbht Plate 12/16/2024 N/A 59923-ENNT SKIN LESIONS, OVER 4 12/16/2024 N/A 12925-Rznykocs Plate 01/09/2025 N/A 57787-Jpdqsvji Plate Each Additional 01/09/2025 N/A Encounters Encounter Location Date Provider Diagnosis [address] [address] 06/03/2024 Francine Black Type 2 diabetes mellitus with diabetic polyneuropathy E11.42 ; Tinea unguium B35.1 ; Ingrown nail L60.0 and Edema, lower extremity R60.[address] [address] 09/09/2024 Francine Black Type 2 diabetes mellitus with diabetic polyneuropathy E11.42 ; Other hammer toe(s) (acquired), right foot M20.41 ; Tinea unguium B35.1 ; Ingrown nail L60.0 ; Edema, lower extremity R60.0 and Other hammer toe(s) (acquired), left foot M20.[address] [address] 10/09/2024 Francine Black Ingrown nail L60.0 a nd Type 2 diabetes mellitus with diabetic polyneuropathy E11.[address] [address] 12/16/2024 Francine Black Type 2 diabetes mellitus with diabetic polyneuropathy E11.42 ; Edema, lower extremity R60.0 ; Ingrown nail L60.0 and Tinea unguium B35.[address] [address] 01/09/2025 Francine Black Ingrown nail L60.0 a nd Type 2 diabetes mellitus with diabetic polyneuropathy E11.42 [facility] [place] [address] [place] [address] 10/08/2024 Francine Ibrahim [facility] [address] [address] 01/08/2025 Francine Ibrahim [facility] [address] [address] 03/20/2025 Francine Patrice Assessments Encounter Date Diagnosis [...] Order Date Microalbumin, 24 hr Urine 06/23/2015 00099-HZUNOQN NAIL, 6 OR MORE 12/16/2024 24315-VEDYNRI NAIL, 6 OR MORE 02/02/2023 82145-OJWFQAG NAIL, 6 OR MORE 05/11/2023 47220-TRSFHJC NAIL, 6 OR MORE 08/10/2023 64406-SJTIGWR NAIL, 6 OR MORE 11/13/2023 67096-NCTKTCL NAIL, 6 OR MORE 02/26/2024 49655-XCWXYIH NAIL, 6 OR MORE 06/03/2024 65166-TEYVPVZ NAIL, 6 OR MORE 09/09/2024 54594-DZGCJDX NAIL, 6 OR MORE 05/05/2011 50486-SJZTKAV NAIL, 6 OR MORE 09/19/2011 77034-ZUCLDYM NAIL, 6 OR MORE 11/03/2011 91321-HTPICCQ NAIL, 6 OR MORE 12/05/2011 10765-AXCMHCJ NAIL, 6 OR MORE 11/27/2012 84694-DRMICXX NAIL, 6 OR MORE 07/29/2013 38840-UMQGKSU NAIL, 6 OR MORE 01/27/2014 94992-TXFJIGX NAIL, 6 OR MORE 09/04/2015 10317-DXAUKBA NAIL, 6 OR MORE 12/02/2015 60331-JSPRPKW NAIL, 6 OR MORE 02/08/2016 91027-MZUGWXG NAIL, 6 OR MORE 04/25/2016 89480-YVXDCTM NAIL, 6 OR MORE 07/11/2016 99939-YQFIHOQ NAIL, 6 OR MORE 09/08/2016 27666-TQDYYTV NAIL, 6 OR MORE 11/17/2016 16839-VUFMESC NAIL, 6 OR MORE 02/02/2017 91415-VDXUTVS NAIL, 6 OR MORE 04/11/2017 24759-RSMMFPP NAIL, 6 OR MORE 07/05/2017 22259-BICHILY NAIL, 6 OR MORE 09/14/2017 70233-RSIYLYH NAIL, 6 OR MORE 11/20/2017 50767-VMCNKEO NAIL, 6 OR MORE 01/29/2018 32320-BMXTGJM NAIL, 6 OR MORE 06/12/2018 05263-LXUCJLQ NAIL, 6 OR MORE 08/27/2018 61053-XNEWQBU NAIL, 6 OR MORE 11/05/2018 38352-KYKCPCR NAIL, 6 OR MORE 03/05/2019 40384-TCHEZBT NAIL, 6 OR MORE 05/13/2019 24717-SHXOJYO NAIL, 6 OR MORE 08/05/2019 94463-MFZCORM NAIL, 6 OR MORE 10/28/2019 00744-GFNNEGI NAIL, 6 OR MORE 03/26/2020 30812-TGOCTWB NAIL, 6 OR MORE 12/23/2019 25624-ATTBUQF NAIL, 6 OR MORE 06/11/2020 58620-QDPVFTZ NAIL, 6 OR MORE 08/20/2020 53937-TZMXVIL NAIL, 6 OR MORE 10/22/2020 83118-VITHAAC NAIL, 6 OR MORE 12/31/2020 30939-AZFUVYB NAIL, 6 OR MORE 04/19/2021 38393-YSTUZDB NAIL, 6 OR MORE 07/15/2021 18049-BTMWDAZ NAIL, 6 OR MORE 10/04/2021 35754-APHOOEA NAIL, 6 OR MORE 02/08/2022 62033-YLALCPL NAIL, 6 OR MORE 04/25/2022 19958-KIHPGPE NAIL, 6 OR MORE 08/01/2022 50719-HRHZNVZ NAIL, 6 OR MORE 11/03/2022 67601-IYIWAUL NAIL, 1-5 04/03/2015 54135-FNSHKJF NAIL, 1-5 06/16/2015 19519-XMCDFTO NAIL, 1-5 07/28/2014 91887-MPFVRSW NAIL, 1-5 04/30/2012 64218-BSAIRFB NAIL, 1-5 11/27/2014 45217-NZMZPCX NAIL, 1-5 01/26/2015 10298-Kfbk Destruction, 1-14 04/25/2022 34259-Ynya Destruction, 1-14 08/01/2022 67621-Sllq Destruction, 1-14 11/03/2022 85380-Orfjkfol Plate 09/09/2024 07479-Oayvmoui Plate 10/09/2024 24975-Djwjjjkz Plate 02/26/2024 93186-Ixpmpkof Plate 11/13/2023 07208-Llyyczay Plate 12/16/2024 75042-Rqsgxpjv Plate 01/09/2025 65000-Fmuclswf Plate 11/03/2022 92444-Xapxhouh Plate 02/02/2023 04609-Lxhomvup Plate 02/08/2022 54206-Hgsbueem Plate 10/04/2021 23050-Ospbsjiw Plate 10/28/2019 40743-Axilyiid Plate 04/19/2021 59583-Mhpqbnoh Plate 12/31/2020 89849-Uyvcrxrl Plate 01/16/2020 95320-Ordqysba Plate 01/23/2020 76623-Rmqsxbqh Plate 03/05/2019 77665-Etrmzmao Plate 05/13/2019 73905-Mfigeryb Plate 08/27/2018 14215-Pcssysih Plate 01/29/2018 84013-Gzkidviv Plate 06/12/2018 70594-Ndhtjcxs Plate 01/26/2015 96424-Wlxbjvai Plate 04/03/2015 77444-Hftmcjtx Plate 01/27/2014 42811-Wbeerfir Plate 03/13/2014 17198-Vfjenhez Plate 07/29/2013 54708-Gygrtsnf Plate 11/27/2012 83687-Vomqavlw Plate 03/09/2012 09798-Tuczxeix Plate 04/30/2012 52698-Ztnktjoi Plate 12/05/2011 28841-Aqegqguj Plate 02/23/2012 43528-Xvurftvo Plate 11/03/2011 51238-Rrbmuvaq Plate 09/19/2011 25350-Zddykqmb Plate 05/05/2011 34717-Hfsdnyaf Plate 06/06/2011 84088-Hnjoqrlo Plate 07/28/2014 13437-Kerrcpay Plate 11/27/2014 42296-Ntxhrjzi Plate 07/11/2016 21942-Yndzruxn Plate 04/25/2016 34689-Rvcqbptp Plate 09/14/2017 99588-Adaphaes Plate 04/11/2017 36739-Mhjredyw Plate 02/08/2016 20570-Espawlsp Plate 11/17/2016 71080-Citjnjnb Plate 09/08/2016 89786-Yjaincoc Plate Each Additional 50894-Cjvaxtjh Plate Each Additional 09/2011 49468-Iqvrsjyc Plate Each Additional 22616-Koajarps Plate Each Additional 01/2012 56596-Gnrgaqhx Plate Each Additional 98748-Hqpvxhqn Plate Each Additional 73395-Dfavotle Plate Each Additional 98973-Wcmjzflp Plate Each Additional 07/2020 25622-Sjrlznlb Plate Each Additional 03/2022 36329-Ljdjgsxs Plate Each Additional 04/2025 73528-TWC 01/11/2012 52984- Debride <25 sq cm 01/30/2012 75089- Debride <25 sq cm 02/23/2012 71220- Debride <25 sq cm 04/30/2012 38698- Debride <25 sq cm 04/24/2017 84865- Debride <25 sq cm 01/30/2020 79331- Debride <25 sq cm 02/13/2020 52077- Debride <25 sq cm 02/27/2020 29437- Debride <25 sq cm 01/23/2020 23873- Debride <25 sq cm 03/26/2020 69261- Debride <25 sq cm 04/06/2020 17069-JXFKTVO SKIN/TISSUE 03/09/2012 55869 I&D ABSCESS- SIMPLE,SINGLE 014 54388 I&D ABSCESS- SIMPLE,SINGLE 022 32750-YCEU SKIN LESIONS, OVER 4 10/05/19 22 24360-LLWM SKIN LESIONS, OVER 4 08/01/19 23 67502-NMRJ SKIN LESIONS, OVER 4 04/25/20 22 56593-BKZO SKIN LESIONS, OVER 4 02/03/20 23 95764-ASPY SKIN LESIONS, OVER 4 11/04/19 23 48915-YTRY SKIN LESIONS, OVER 4 12/23/19 20 87573-PLKT SKIN LESIONS, OVER 4 10/28/19 20 23475-FDYA SKIN LESIONS, OVER 4 08/27/19 19 84076-TIAC SKIN LESIONS, OVER 4 06/12/20 18 43085-GNVU SKIN LESIONS, OVER 4 01/30/20 18 26305-BCXB SKIN LESIONS, OVER 4 11/06/19 19 11915-BIJJ SKIN LESIONS, OVER 4 03/05/20 19 71465-OVUB SKIN LESIONS, OVER 4 05/13/20 19 21039-NGLN SKIN LESIONS, OVER 4 08/05/19 20 19848-NXEN SKIN LESIONS, OVER 4 04/03/20 15 68515-DNTW SKIN LESIONS, OVER 4 07/05/19 18 97620-QBOP SKIN LESIONS, OVER 4 04/11/20 17 82046-PNUV SKIN LESIONS, OVER 4 11/21/19 18 33352-VYRX SKIN LESIONS, OVER 4 09/15/19 18 34465-XIUX SKIN LESIONS, OVER 4 11/18/19 17 38785-XUVA SKIN LESIONS, OVER 4 09/09/19 17 45214-DSBA SKIN LESIONS, OVER 4 02/03/20 17 81834-EJIH SKIN LESIONS, OVER 4 04/25/20 16 50415-AGJE SKIN LESIONS, OVER 4 07/11/19 17 17947-VORN SKIN LESIONS, OVER 4 02/08/20 16 42966-XSGR SKIN LESIONS, OVER 4 12/02/19 16 01737-WPNO SKIN LESIONS, OVER 4 09/04/19 16 71753-GPFP SKIN LESIONS, OVER 4 06/16/20 15 61920-GWUZ SKIN LESIONS, OVER 4 11/13/19 24 83641-PNOM SKIN LESIONS, OVER 4 02/26/20 24 62553-XPPU SKIN LESIONS, OVER 4 08/10/19 24 78061-VCTZ SKIN LESIONS, OVER 4 05/11/20 23 30974-RMEX SKIN LESIONS, OVER 4 12/17/19 25 66576-RUDM SKIN LESIONS, OVER 4 09/10/19 25 64699-ZWVR SKIN LESIONS, OVER 4 06/03/20 24 33820-UUUV SKIN LESIONS, 2 TO 4 03/26/20 20 73694-WVSA SKIN LESIONS, 2 TO 4 06/11/20 20 70856-DYYR SKIN LESIONS, 2 TO 4 08/20/19 21 30551-JEQL SKIN LESIONS, 2 TO 4 02/09/20 22 31688-NOVW SKIN LESIONS, 2 TO 4 07/15/19 22 12813-EGOE SKIN LESIONS, 2 TO 4 04/19/20 21 41507-PRFD SKIN LESIONS, 2 TO 4 01/01/20 21 21381-ORWP SKIN LESIONS, 2 TO 4 10/23/19 21 U7417-DCZMNRZI DYSTROPHIC NAILS ANY # Next Appt Details Provider Name:Francine Ibrahim , 2025 01:30:00 PM, [address] [facility], [place], [address], Insurance Providers Payer Name Payer Address Payer Phone Subscriber Number Group Number Insured Name Patient Relationship to Insured Coverage Start Date Coverage End Date [employer] Medicare [id number] [address] [address] [place] [address] [id number] Alireza Gabriel Self - patient is the insured 6 Medical (General) History Medical History History ICD Code mumps back, hip, knee pain type II diabetes Hay fever Other hammer toe(s) (acquired), right fo ot M20.41 Other hammer toe(s) (acquired), left jasmin t M20.42 Surgical History Surgery Date(Month/Year) left knee arthroscopy 1995 left knee replacement 08/28/2012
--- OUTSIDE RECORDS SUMMARY | 2025-05-15 10:35 | XMS_ITS | Patient Health Record ---
Author Organization [facility] Address [address] [place] [address] Care Team Providers Care Remodeler Name Role Phone John PENNY, Latoya Primary Care Provider Isma Vu Unavailable [phone] Allergies Allergen (clinical drug ingredient) Drug/Non Drug [...] Problem Screening for malignant neoplasm of colon (781142804) Encounter for screening for malignant neoplasm of colon (Z12.11) Active confirmed Problem History of adenomatous polyp of colon (492153715) History of adenomatous polyp of colon (Z86.010) Active confirmed Problem Iron deficiency anemia (71797225) Iron deficiency anemia (D50.9) Active confirmed Problem Preprocedural examination (316847825821024) Preprocedural examination (Z01.818) Active confirmed Problem History of polyp of colon (situation) (868152755) History of colon polyps (Z86.010) Active confirmed Problem Anemia (536628063) Anemia (D64.9) Active confirmed Problem Long-term current use of antiplatelet drug (884342007731521) Long-term use of aspirin therapy (Z79.82) Active confirmed Problem Constipation (97966795) Constipation, unspecified constipation type (K59.00) Active confirmed Problem Iron deficiency anemia (12260953) Other iron deficiency anemia (D50.8) Active confirmed Problem Long-term current use of anticoagulant (445842987) Anticoagulant long-term use (Z79.01) Active confirmed Problem Iron deficiency anemia (71813452) Iron deficiency anemia, unspecified iron deficiency anemia type (D50.9) Active confirmed Problem Mucosal abnormality of duodenum (K31.9) Active confirmed Problem Diverticulosis of colon (793060456) Diverticulosis of colon (K57.30) Active confirmed Vital Signs Temperature 97.8 degrees Fahrenheit 04/08/2025 Blood pressure diastolic 01 mm Hg 04/08/2025 Height 70 in 04/08/2025 Blood pressure systolic 001 mm Hg 04/08/2025 Weight 226.4 lbs 04/08/2025 BMI 32.48 kg/m2 04/08/2025 Encounters Encounter Location Date Provider Diagnosis [facility] [address] [place] [address] 04/08/2025 Isma Yepez Anemia D64.9 Assessments Encounter [...] basis. I did advise him and his tqnhkmbo-vh-euz to certainly call if he has any [...] Insured Coverage Start Date Coverage End Date [facility] [address] [address] [place] [address] [id number] ALIREZA ROWAN Self - patient is the insured Medical (General) History Medical History History ICD Code Colonoscopy 07-20-2007 and 2003- tubular adenomas removed Hyperlipidemia NIDDM Hypertension Denies AK,CVA,Lung disease,renal disease BPH Colonoscopy in 04/2013 with [...]
== END 2025-05-15 09:58 | disposition home or self-care (01) ==
LOC: HO.HPS 09:18
PROVIDERS: PCP Internal Medicine; Visit Provider Hospitalist
DX: J90 Pleural effusion, not elsewhere classified (principal); I50.32 Chronic diastolic (congestive) heart failure; J96.12 Chronic respiratory failure with hypercapnia; G47.33 Obstructive sleep apnea (adult) (pediatric)
CPT/HCPCS: 99215

== ENCOUNTER → 2025-05-15 09:17 | Outpatient (BNVA) | payer MEDICARE, SELFPAY | PROVIDERS: PCP Internal Medicine; Visit Provider Hospitalist | DX: I50.32 Chronic diastolic (congestive) heart failure (principal); J90 Pleural effusion, not elsewhere classified; J96.12 Chronic respiratory failure with hypercapnia; G47.33 Obstructive sleep apnea (adult) (pediatric); Z99.89 Dependence on other enabling machines and devices; Z09 Encounter for follow-up examination after completed treatment for conditions other than malignant neoplasm; I11.0 Hypertensive heart disease with heart failure | CPT/HCPCS: 99212 ==

== ENCOUNTER 2025-05-28 09:10 | Outpatient (REF) | payer MEDICARE, SELFPAY ==
[2025-05-28 14:09] LABS: Hematocrit 30.1 % (42.0-52.0); Hemoglobin 9.8 g/dl (14.0-18.0); Imm Gran Abs Auto 0.04 X10*3/uL (0.00-0.03); Imm Gran Pct Auto 0.6 % (0.0-0.4); Lymphocytes Absolute Auto 1.2 X10*3/uL (1.2-4.9); MANUAL DIFF FLAG SCAN; Mean Corpuscular HGB Conc 32.6 g/dl (31.0-36.0); Mean Corpuscular Hemoglobin 28.3 pg (27.0-33.0); Mean Corpuscular Volume 87.0 fL (80.0-98.0); NRBC Abs Auto 0.000 X10*3/uL (0.0-0.012); NRBC Pct Auto 0.0 /100WBC (0.0-0.2); PLT CLUMP 1; Red Blood Count 3.46 X10*6/uL (4.60-5.80); SCAN SMEAR FLAG 1
[2025-05-28 14:57] LABS: White Blood Count 6.9 X10*3/uL (4.8-10.8)
[2025-05-28 14:58] LABS: Platelet Count 228 X10*3/uL (160-400)
[2025-05-28 15:15] LABS: Anion Gap 13 (12-20); Blood Urea Nitrogen 43 mg/dL (9-16); Calcium 9.3 mg/dL (8.4-10.2); Carbon Dioxide 21 mmol/L (22-29); Chloride 104 mmol/L (96-108); Estimated Glomerular Filt Rate 33; Iron 97 mcg/dL (45-160); Percent Iron Saturation 49 % (15-50); Potassium 4.3 mmol/L (3.3-5.1); Sodium 134 mmol/L (135-145); Total Iron Binding Capacity 197 mcg/dL (228-428); Unsaturated Iron Binding 100 ug/dL
[2025-05-28 15:38] LABS: Ferritin 171 ng/mL (20-250)
[2025-05-28 15:39] LABS: Prostate Specific Antigen 1.07 ng/mL (<0.05-4.0)
[2025-05-28 15:46] LABS: NT Pro B Type Natriuretic Pept 1878.6 pg/mL (<300)
== END 2025-05-28 09:11 | disposition home or self-care (01) ==
LOC: HO.HMGCLDS 09:10
PROVIDERS: Nurse Practitioner Family; Absent Provider Internal Medicine Hypertension Specialist; PCP Internal Medicine; Visit Provider Hospitalist
DX: Z12.5 Encounter for screening for malignant neoplasm of prostate (principal); I50.32 Chronic diastolic (congestive) heart failure; D50.9 Iron deficiency anemia, unspecified; N17.9 Acute kidney failure, unspecified; J90 Pleural effusion, not elsewhere classified
CPT/HCPCS: 36415; 80048; 82728; 83540; 83880; 84153; 85025; 85652

== ENCOUNTER 2025-06-02 13:25 | Outpatient (REF) | payer MEDICARE, SELFPAY ==
--- NOTE | ~2025-06-02 | US_ITS ---
EXAMINATION: US LOWER EXTREMITY VENOUS (REFLUX EXAM), BILATERAL CLINICAL INFORMATION: I83.11 - Varicose veins of right lower extremity with inflammation. History of right lower extremity ablation July 2019 COMPARISON: Previous exam May 2019 TECHNIQUE: Color flow triplex imaging and compression Doppler was performed to evaluate both the deep and the superficial systems bilaterally. To evaluate the superficial system, the examination was performed in the upright position. Color-flow Doppler ultrasound and compression ultrasound were utilized. In addition, maneuvers were utilized to demonstrate reflux. FINDINGS: 1. DEEP VENOUS ULTRASOUND OF THE RIGHT LOWER EXTREMITY: Common Femoral Vein: Compressible, normal respiratory variation and augmented flow. Femoral Vein: Compressible, normal color flow and augmentation. Popliteal Vein: Compressible, normal augmentation. Deep Reflux: There is no evidence of reflux in the deep system in either the common femoral vein, superficial femoral or the popliteal vein. There is no evidence of a Grace's cyst. 2. SUPERFICIAL ULTRASOUND WITH DOPPLER OF RIGHT LOWER EXTREMITY: GREAT SAPHENOUS VEIN: Saphenofemoral Junction: 0.6 cm; Reflux: 0 ms Proximal Thigh: 0.3 cm; Reflux: 0 ms Mid Thigh: 0.4 cm; Reflux: 0 ms Distal Thigh: 0.4 cm; Reflux: 0 ms At Knee: 0.4 cm; Reflux: 1260 ms Proximal Calf: 0.4 cm; Reflux: 2608ms Mid Calf: 0.4 cm; Reflux: 7-8 ms Distal Calf: 0.4 cm; Reflux: 0 ms DUPLICATED MEDIAL GREAT SAPHENOUS VEIN: Diameter: None imaged Reflux: NA DUPLICATED LATERAL GREAT SAPHENOUS VEIN: Diameter: 0.1 cm Reflux: NA SMALL SAPHENOUS VEIN: Saphenopopliteal Junction: 0.1 cm; Reflux: 0 ms Proximal: 0.2 cm; Reflux: 0 ms Distal: 0.2 cm; Reflux: 0 ms VEIN OF GIACOMINI: Size: NA Reflux: NA PERFORATORS: Location: Perforators communicating with the lesser saphenous vein measures 0.1 cm without reflux. Perforators in the proximal thigh proximal calf and mid calf measuring 2 to 4 mm without reflux. Technical Support Technician in the distal calf measuring 4 mm with a 0.836 second reflux. VARICOSITIES: Location: None imaged. Size: NA Reflux: NA 3. DEEP VENOUS ULTRASOUND OF THE LEFT LOWER EXTREMITY: Common Femoral Vein: Compressible, normal respiratory variation and augmented flow. Femoral Vein: Compressible, normal color flow and augmentation. Popliteal Vein: Linear echogenic material in and against the wall of the the left popliteal vein suggestive of chronic changes from DVT. No evidence of acute DVT. This does not appear acute but is new in the interval from 2019 exam. Deep Reflux: There is no evidence of reflux in the deep system in either the common femoral vein or superficial femoral vein. 0.680 second reflux in the popliteal vein. There is no evidence of a Grace's cyst. 4. SUPERFICIAL ULTRASOUND WITH DOPPLER OF LEFT LOWER EXTREMITY: GREAT SAPHENOUS VEIN: Saphenofemoral Junction: 0.6 cm; Reflux: 2172 ms Proximal Thigh: 0.6 cm; Reflux: 948 ms Mid Thigh: 0.2 cm; Reflux: 0 ms Distal Thigh: 0.3 cm; Reflux: 0 ms At Knee: 0.2 cm; Reflux: 0 ms Proximal Calf: 0.2 cm; Reflux: 0 ms Mid Calf: 0.2 cm; Reflux: 0 ms Distal Calf: 0.3 cm; Reflux: 0 ms DUPLICATED MEDIAL GREAT SAPHENOUS VEIN: Diameter: None imaged Reflux: NA DUPLICATED LATERAL GREAT SAPHENOUS VEIN: Diameter: None imaged. Reflux: NA SMALL SAPHENOUS VEIN: Saphenopopliteal Junction: 0.3 cm; Reflux: 0 ms Proximal: 0.3 cm; Reflux: 0 ms Distal: 0.3 cm; Reflux: 0 ms VEIN OF GIACOMINI: Size: NA Reflux: NA PERFORATORS: Location: Distal thigh Size: 0.2 cm Reflux: NA VARICOSITIES: Location: Mid thigh, 0.7 cm, 0.792 second reflux Mid calf, 0.4 cm, 2.392 second reflux US/US venous duplex LE BI IMPRESSION: Right: No evidence of DVT or deep venous reflux. Postablation changes to the right greater saphenous vein. Right greater saphenous vein measures maximum 4 mm with reflux from the knee to midcalf, maximum 2.6 seconds. Small lesser saphenous vein without reflux. Multiple perforators. 4 mm house painter in the distal calf with reflux. 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 Left greater saphenous vein reflux in the proximal and mid thigh measuring maximum 2.172 seconds. Varicosities in the thigh and calf with reflux measuring maximum 2.4 seconds. Electronically signed by: Leda Dhillon MD 06/02/2025 03:19 PM EST RP
[2025-06-02 15:12] LABS: MANUAL DIFF FLAG NO
[2025-06-02 15:13] LABS: Hematocrit 28.3 % (42.0-52.0); Hemoglobin 9.5 g/dl (14.0-18.0); Imm Gran Abs Auto 0.09 X10*3/uL (0.00-0.03); Imm Gran Pct Auto 1.0 % (0.0-0.4); Lymphocytes Absolute Auto 1.0 X10*3/uL (1.2-4.9); Mean Corpuscular HGB Conc 33.6 g/dl (31.0-36.0); Mean Corpuscular Hemoglobin 28.6 pg (27.0-33.0); Mean Corpuscular Volume 85.2 fL (80.0-98.0); NRBC Abs Auto 0.000 X10*3/uL (0.0-0.012); NRBC Pct Auto 0.0 /100WBC (0.0-0.2); Platelet Count 219 X10*3/uL (160-400); Red Blood Count 3.32 X10*6/uL (4.60-5.80); White Blood Count 8.6 X10*3/uL (4.8-10.8)
[2025-06-02 15:18] LABS: Venous Blood Gas Refer to POC result
[2025-06-02 15:20] LABS: VBG HCO3 21 mmol/L (22-26); VBG O2 % Saturation 76.0 %
[2025-06-02 15:41] LABS: Anion Gap 13 (12-20); Blood Urea Nitrogen 43 mg/dL (9-16); Calcium 8.7 mg/dL (8.4-10.2); Carbon Dioxide 22 mmol/L (22-29); Chloride 100 mmol/L (96-108); Estimated Glomerular Filt Rate 33; Potassium 3.9 mmol/L (3.3-5.1); Sodium 131 mmol/L (135-145)
== END 2025-06-02 13:26 | disposition home or self-care (01) ==
LOC: HO.US 13:25
PROVIDERS: Hospitalist; PCP Internal Medicine; Visit Provider Surgery Vascular Surgery
DX: I83.11 Varicose veins of right lower extremity with inflammation (principal); I50.32 Chronic diastolic (congestive) heart failure; J90 Pleural effusion, not elsewhere classified
CPT/HCPCS: 36415; 80048; 82803; 85025; 93970

== ENCOUNTER → 2025-06-02 13:28 | Outpatient (BNV) | payer MEDICARE, SELFPAY | PROVIDERS: PCP Internal Medicine; Visit Provider Radiology Diagnostic Radiology | DX: I83.11 Varicose veins of right lower extremity with inflammation (principal); I82.532 Chronic embolism and thrombosis of left popliteal vein | CPT/HCPCS: 93970 ==

== ENCOUNTER 2025-06-09 11:26 | Outpatient (AMB) | payer MEDICARE, SELFPAY ==
[2025-06-09 12:05] VITALS: BP 112/62; PULSE 81; RESP 16; TEMP 36.6; O2SAT 97; BMI 27.3
--- NOTE | 2025-06-09 12:05 | A.OFFPC_ITS ---
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 Required: No Accompanied by: Son (Logan) Allergies cephalexin (Keflex) Allergy (Intermediate, Verified 06/09/25 12:31) hives levofloxacin Allergy (Intermediate, Verified 06/09/25 12:31) Hives cetirizine (From Zyrtec) Adverse Reaction (Intermediate, Verified 06/09/25 12:31) Fatigue Medication List - Last Reconciled 06/09/25 by Latoya Lopez MD acetaminophen 500 mg PO Q6H PRN apixaban (Eliquis) 2.5 mg PO BID 30 days aspirin 81 mg PO DAILY blood sugar diagnostic (U.Gene.usTouch Verio test strips) use 1 strip once a day to test blood sugar blood-glucose meter (OneTouch Verio Flex Meter) As directed bumetanide 2 mg See Protocol PO DAILY erythromycin 1 cm ophthalmic (eye) QID Farxiga (dapagliflozin propanediol) 10 mg PO DAILY NS lancets (Accu-Chek Softclix Lancets) use 1 lancet daily to test blood sugar tamsulosin 0.4 mg PO DAILY 90 days triamcinolone acetonide 0.1% 1 appl See Protocol topical BID zinc oxide-gauze bandage 12 %- 4 X 10 yard (Unna Boot) As directed Tobacco use date assessed: 06/09/25 Fall risk assessment: 1 Fall in past year Last assessed Fall Risk: 06/09/25 Dental Screening Dental Screen Date: 06/09/25 Did you have a dental visit in the last 12 months?: No Did you have a dental problem in the last 6 months where you did not have access to dental care?: No Was dental information given to patient?: Patient has dentist [facility] Medical History (Updated 06/09/25 @ 12:49 by Latoya Lopez MD) Type 2 diabetes mellitus without complication, without long-term current use of insulin JASS (obstructive sleep apnea) Chronic hypercapnic respiratory failure Pleural effusion Acute respiratory failure with hypercapnia Acute exacerbation of congestive heart failure CKD (chronic kidney disease) Congestive heart failure Cardiomyopathy Persistent atrial fibrillation Pulmonary edema Stasis dermatitis of both legs History of congestive heart failure Physical deconditioning Weakness Hypertensive retinopathy Posterior vitreous detachment, left eye Epiphora due to excess lacrimation of right side Senile ectropion of right lower eyelid BPH (benign prostatic hyperplasia) Type 2 diabetes mellitus without complication, with no history of insulin use Normocytic anemia Thrombocytopenia COVID-19 vaccine series completed 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 Social History Household Members: None Housing: House Are you a primary director of primary care to a significant other at home: No Do you presently have visiting nurse or other home services: Yes (patient has visiting nurse and physical therapy once a week) Patient Tobacco Use Status: Never used Tobacco e-Cigarette/Vaping Use: Never Used Second Hand Smoke Exposure: Yes Advance Directives Date on File: 12/28/23 service: No Current occupational status: retired Cognitive needs: No Hearing needs: No Vision needs: Yes Questionnaire Thrive Questionnaire Date Thrive assessed: 08/22/24 I am a: Patient What is your living situation today?: I have a steady place to live Within the past 12 months, did the food you bought not last and you didn't have the money to get more?: Never true Within the past 12 months, did you worry whether your food would run out before you got money to buy more?: Never true Do you have trouble paying for medicines?: No Do you have trouble getting transportation to medical appointments?: No Do you have trouble paying your heating and electricity bill?: No Do you have trouble taking care of your child, family member or friend?: No Do you have trouble with day-to-day activities such as bathing, preparing meals, shopping, managing finances, etc.?: No Are you currently unemployed and looking for a job?: No Are you interested in more education?: No Please select the resources that you would like help with: None Currently or been in a relationship where the following occur: No concerns reported THRIVE Score: 0 MARY-7 AMB Questionnaire MARY-7 Date MARY - 7 assessed: 08/22/24 Source: Developed by Drs. Isma Davidson, Radha Sumner, Bobby Reyes and colleagues, with an educational gina from [employer] Physical exam (Primary Care) Tobacco/Smoking Status: Tobacco use Status Tobacco use date assessed 04/07/25 04/07/25 16:04 Patient Tobacco Use Status Never used Tobacco 04/25/25 14:30 e-Cigarette/Vaping Use Never Used 04/07/25 16:04 Thrive Assessment: Date of Thrive Assessment Date Thrive assessed 08/22/24 05/12/25 15:01 Currently or been in a relationship where the following occur: No concerns reported Results AMB Hemoglobin A1c AMB Hemoglobin A1c 7.4 % Last Edit by Ros Carbajal CMA on 06/09/25 13:06 Coding Assessment & Plan Assessment & Plan Orders: Orders Lipid Panel 3 Months D69.6 - Thrombocytopenia, unspecified, E11.9 - Type 2 diabetes mellitus without complications, E78.5 - Hyperlipidemia, unspecified, I50.32 - Chronic diastolic (congestive) heart failure, N18.30 - Chronic kidney disease, stage 3 unspecified Complete Blood Count Auto Diff 3 Months D69.6 - Thrombocytopenia, unspecified, E11.9 - Type 2 diabetes mellitus without complications, E78.5 - Hyperlipidemia, unspecified, I50.32 - Chronic diastolic (congestive) heart failure, N18.30 - Chronic kidney disease, stage 3 unspecified Hemoglobin A1c 3 Months D69.6 - Thrombocytopenia, unspecified, E11.9 - Type 2 diabetes mellitus without complications, E78.5 - Hyperlipidemia, unspecified, I50.32 - Chronic diastolic (congestive) heart failure, N18.30 - Chronic kidney disease, stage 3 unspecified Comprehensive [place]. Panel Fast 3 Months D69.6 - Thrombocytopenia, unspecified, E11.9 - Type 2 diabetes mellitus without complications, E78.5 - Hyperlipidemia, unspecified, I50.32 - Chronic diastolic (congestive) heart failure, N18.30 - Chronic kidney disease, stage 3 unspecified Vitamin D 25-OH Total 3 Months D69.6 - Thrombocytopenia, unspecified, E11.9 - Type 2 diabetes mellitus without complications, E78.5 - Hyperlipidemia, unsp ecified, I50.32 - Chronic diastolic (congestive) heart failure, N18.30 - Chronic kidney disease, stage 3 unspecified Vitamin B12 and Folate 3 Months D69.6 - Thrombocytopenia, unspecified, E11.9 - Type 2 diabetes mellitus without complications, E78.5 - Hyperlipidemia, unspecified, I50.32 - Chronic diastolic (congestive) heart failure, N18.30 - Chronic kidney disease, stage 3 unspecified AMB Hemoglobin A1c Today Z13.9 - Encounter for screening, unspecified
== END 2025-06-09 13:00 | disposition home or self-care (01) ==
LOC: HO.HMCC 11:27
PROVIDERS: PCP Internal Medicine; Visit Provider Internal Medicine
DX: Z13.9 Encounter for screening, unspecified (principal)

== ENCOUNTER → 2025-06-09 11:26 | Outpatient (BNVA) | payer MEDICARE, SELFPAY | PROVIDERS: PCP Internal Medicine; Visit Provider Internal Medicine | DX: E11.9 Type 2 diabetes mellitus without complications (principal); I48.91 Unspecified atrial fibrillation; Z86.79 Personal history of other diseases of the circulatory system; N18.30 Chronic kidney disease, stage 3 unspecified; G47.33 Obstructive sleep apnea (adult) (pediatric); I65.21 Occlusion and stenosis of right carotid artery; D64.9 Anemia, unspecified; Z99.89 Dependence on other enabling machines and devices; D69.6 Thrombocytopenia, unspecified | CPT/HCPCS: 83036; 99212 ==

== ENCOUNTER 2025-06-10 14:05 | Outpatient (AMB) | payer MEDICARE, SELFPAY ==
--- OUTSIDE RECORDS SUMMARY | 2025-03-20 09:45 | XMS_ITS ---
Author Organization [facility] Address [address] [place] [phone] Care Team Providers Care Glass Bulb Machine Adjuster Name Role Phone John PENNY, Latoya Negrete Primary Care Provider Un available Francine Ibrahim Ciro [phone] Encounters Encounter Location Date Provider Diagnosis [address] [address] 03/20/2025 Francine Patrice Plan Of Treatment Next Appt Details Provider Name:Francine Ibrahim , 2025 01:30:00 PM, [address] [place] [address], [phone], Progress Notes * Alireza ROWAN MDOB: 4 (79 yo M)Acc No.[id number]:03/20/2025 Progress Note Patient: Alireza DENNISON Provider: Wen Ibrahim DPM :1945 A ge:79 Y S ex:Male Date:03/20/2025 Address:[address] [place] [phone] Pcp:Amol Yepez Subjective: * Chief Complaints: * * Medical History: Objective: * Vitals: Assessment: Plan: * Treatment: * Images: * The named appointment provid er may or may not be the originator of this progress note, and it is not deemed complete until electronically signed by the appointment provider. Sign off status: Pending * Provider: Wen Ibrahim DPAmol Date: 0 03/20/2025 Generated for Floyd robertson/Marquis/Lorenzo on: 1 08/11/2024 08:04 PM EST
--- NOTE | 2025-06-10 14:25 | A.OFFVIS_ITS ---
Intake Visit Reasons: Follow Up 06/02/25 US Intake Note: Patient presents for follow up US perfornmed on 06/02/25. Patient has no complaints. Accompanied by: Daughter Allergies cephalexin (Keflex) Allergy (Intermediate, Verified 06/10/25 14:28) hives levofloxacin Allergy (Intermediate, Verified 06/10/25 14:28) Hives cetirizine (From Zyrtec) Adverse Reaction (Intermediate, Verified 06/10/25 14:28) Fatigue HPI HPI Follow Up 06/02/25 US: Details: Very pleasant 79-year-old gentleman had seen us in the past for venous disease. He had undergone right great saphenous vein ablation back in July of 2019. He appeared to be doing relatively well and most recently experienced significant lower extremity swelling. He did attribute this to some venous disease but turns out that he has an element of congestive heart failure. He was in [facility] and had a prolonged hospitalization there for congestive heart failure and most recently was hospitalized at [facility] on 04/25/2025 for similar findings. After treatment it appears his legs are doing significantly better. He did not appear to significant swelling at the current time. He now presents to us for follow-up with venous insufficiency testing. Of note he does have swelling right more so than left. Also of note at the time of his visit in [facility] he was worked up for carotid disease and wants to follow up for that as well. [facility] Medical History Type 2 diabetes mellitus without complication, without long-term current use of insulin JASS (obstructive sleep apnea) Chronic hypercapnic respiratory failure Pleural effusion Acute respiratory failure with hypercapnia Acute exacerbation of congestive heart failure CKD (chronic kidney disease) Congestive heart failure Cardiomyopathy Persistent atrial fibrillation Pulmonary edema Stasis dermatitis of both legs History of congestive heart failure Physical deconditioning Weakness Hypertensive retinopathy Posterior vitreous detachment, left eye Epiphora due to excess lacrimation of right side Senile ectropion of right lower eyelid BPH (benign prostatic hyperplasia) Type 2 diabetes mellitus without complication, with no history of insulin use Normocytic anemia Thrombocytopenia COVID-19 vaccine series completed 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 Social History Household Members: None Housing: House Are you a primary date night caregiver to a significant other at home: No Do you presently have visiting nurse or other home services: Yes (patient has visiting nurse and physical therapy once a week) Patient Tobacco Use Status: Never used Tobacco e-Cigarette/Vaping Use: Never Used Second Hand Smoke Exposure: Yes Advance Directives Date on File: 12/28/23 service: No Current occupational status: retired Cognitive needs: No Hearing needs: No Vision needs: Yes Review of Systems Const Reports as per HPI ENT Reports no additional complaints Card Denies chest pain, Denies chest pain at rest and Denies chest pain with activity Resp Denies chest congestion and Denies cough GI Reports no additional complaints Musc Details: pain over varicosities, aching of lower extremities, swelling, cramping, heaviness and tiredness, itching Denies abnormal gait Skin/Breast Reports pruritus and Denies wounds Neuro Reports no additional complaints and Denies abnormal gait Psych Denies no additional complaints Physical Exam Const General: cooperative, healthy appearing and comfortable Orientation/consciousness: oriented to person, oriented to place and oriented to time Neck Carotids: no bruits Chest Chest palpation & inspection: normal inspection of the chest and normal palpation of entire chest wall Resp Effort & Inspection: normal respiratory effort and able to speak in complete sentences Cardio Rate: regular rate Heart sounds: S1 normal heart sound present and S2 normal heart sound present Peripheral pulses: Peripheral pulses 2+ throughout GI Inspection: Yes normal to inspection Skin Other: + 1 edema CEAP Classification C4 - skin color changes Ep - Etiology Primary As - superficial veins P - reflux General skin exam: dry skin Neuro General: oriented to person, oriented to place and oriented to time Extrem Right lower extremity: full ROM, normal capillary refill and edema Left lower extremity: full ROM, normal capillary refill and edema Psych Mental Status: mental status grossly normal Results Reviewed Results Reviewed: Brief summary of venous insufficiency testing is as follows: right great saphenous vein: Focally positive right calf right small saphenous vein: negative right accessory vein: none present left great saphenous vein: negative left small saphenous vein: negative left accessory vein: none present Please note there is no evidence of any venous aneurysms or significant tortuosity Assessment & Plan Assessment & Plan (1) Varicose veins of right lower extremity with inflammation: Comment: July 2019 - right great saphenous vein Cyanoacralate ablation Code(s): I83.11 - Varicose veins of right lower extremity with inflammation Category: Medical Plan: In short lower extremities appear to be doing well. There is a small element of reflux in the right calf overall I do believe more of this may be related to his congestive heart failure. We did discuss routine conservative measures including compression elevation and exercise. Should they become a problem in the future would be happy to readdress at that time. We will workup for carotid disease. (2) Bilateral carotid artery stenosis: Code(s): I65.23 - Occlusion and stenosis of bilateral carotid arteries Category: Medical Plan: At the time of his visit in [place] he had undergone CT angiogram of the neck. At that time it demonstrated right-sided stenosis of 75-80% and left side was within normal limits. He has been asymptomatic since that time. We will repeat carotid testing to confirm the true degree of stenosis. Due to his overall comorbidities we will have to have a discussion about what may be in his best interest. Thank you for allowing us to assist in his care. If there are any questions or concerns please do not hesitate to contact us. Orders: Orders Creatinine Today I65.23 - Occlusion and stenosis of bilateral carotid arteries CT angio neck Today I65.23 - Occlusion and stenosis of bilateral carotid arteries Blood Urea Nitrogen Today I65.23 - Occlusion and stenosis of bilateral carotid arteries Coding Level of Care Code Est Pt Level 4 (96374) Diagnoses Varicose veins of right lower extremity with inflammation I83.11 Bilateral carotid artery stenosis I65.23
--- OUTSIDE RECORDS SUMMARY | 2025-06-10 20:04 | XMS_ITS | Patient Health Record ---
Author Organization [facility] Address [address] [place] [address] Care Team Providers Care Air Table Operator Name Role Phone John PENNY, Latoya Primary Care Provider Isma Vu Unavailable [phone] Allergies Allergen (clinical drug ingredient) Drug/Non Drug Allergy documented on EMR Reaction Allergy Type Onset Date Status tamsulosin Flomax Unknown Drug Allergy Active Keflex hives Drug Allergy Active ZyrTEC fatigue Drug Allergy Active levofloxacin Levofloxacin hives Drug Allergy A ctive Reason For Referral No Information Medications Medication SIG (Take, Route, Frequency, Duration) Notes Start Date End Date Status Januvia 100 MG Tablet 1 tablet Orally On ce a day; Duration: 30 day(s) Not-Taking/PRN Eliquis 5 MG Tablet TK 1 T PO BID Oral; Duration: 30 Active Simvastatin 10 MG Tablet 1 tablet in the evening Orally every other evening Not-Taking/PRN Triamcinolone Acetonide 0.1 % Cream External; Duration: 25 Days Active Furosemide 40 MG Tablet TK 1 T PO QD Ora l; Duration: 90 Not-Taking/PRN Triamcinolone Acetonide 0.1 % Cream External; Duration: 25 Days Active metFORMIN HCl 1000 MG Tablet TK 1 T PO BID WF Orally Once a day Not-Taking/PRN Eliquis 2.5 MG Tablet Oral; Duration: 30 Days Active glipiZIDE ER 2.5 MG Tablet Extended Release 24 Hour TK 1 T PO QD IN THE MORNING WITH ANGELA Oral 1 tablet in the morning with breakfast Not-Taking/PRN Senna 8.6 MG Tablet TAKE 1 TABLET BY MOUTH EVERY DAY NEEDED FOR CONSTIPATION Oral; Duration: 14 Days Active Eliquis 5 MG Tablet TAKE 1 TABLET BY MOUTH TWICE DAILY Oral; Duration: 90 Days Active Bydureon 2 MG Pen-injector 1 Subcutaneous once a week Not-Taking/PRN FeroSul 325 (65 Fe) MG Tablet TAKE 1 TABLET BY MOUTH DAILY Oral; Duration: 90 Not-Taking/PRN Doxazosin Mesylate 1 MG Tablet Oral; Duration: 30 Days Active Tamsulosin HCl 0.4 MG Capsule Oral; Duration: 90 Days Active metFORMIN HCl 1000 MG Tablet TAKE 1 TABLET BY MOUTH TWICE DAILY Oral; Duration: 90 Days Active ALPRAZolam 0.5 MG Tablet TAKE 1 TABLET BY MOUTH EVERY 8 HOURS NEEDED FOR ANXIETY FOR 5 DAYS Oral; Duration: 5 Days Active oxyCODONE HCl 5 MG Tablet Oral; Duration: 5 Days Active Lisinopril 20 MG Tablet TAKE 1 TABLET BY MOUTH TWICE DAILY Oral; Duration: 15 Days Active Bumetanide 1 MG Tablet TAKE 1 TABLET BY MOUTH TWICE DAILY Oral; Duration: 30 Days Active Atorvastatin Calcium 40 MG Tablet Oral; Duration: 30 Days Active Metoprolol Tartrate 25 MG Tablet TAKE 1 TABLET BY MOUTH TWICE DAILY Oral; Duration: 30 Days Active metOLazone 2.5 MG Tablet TAKE 1 TABLET BY MOUTH DAILY Oral; Duration: 60 Days Active Potassium Chloride Emilie ER 20 MEQ Tablet Extended Release TAKE 1 TABLET BY MOUTH DAILY Oral; Duration: 30 Days Active Ozempic (0.25 or 0.5 MG/DOSE) 2 MG/3ML Solution Pen-injector ADMINISTER 0.25 MG UNDER THE SKIN EVERY WEEK FOR 4 WEEKS Subcutaneous; Duration: 28 Days Active Metoprolol Tartrate 50 MG Tablet TAKE 1 TABLET BY MOUTH TWICE DAILY Oral; Duration: 90 Days Active glipiZIDE ER 2.5 MG Tablet Extended Release 24 Hour TAKE 1 TABLET BY MOUTH EVERY MORNING Oral; Duration: 90 Days Active Metoprolol Succinate 25 MG Capsule ER 24 Hour Sprinkle 1 capsule Orally Once a day; Duration: 30 day(s) Not-Taking/PRN Immunizations Vaccine Route Administration Date Status Comme nts Influenza Unknown 04/06/2020 Administered Influenza Unknown 05/19/2021 Administered Influenza Unknown 04/12/2022 Administered Influenza Unknown 04/08/2024 Administered Social History Social History Drug/Alcohol: Social Info Question Answer Notes AUDIT-C (Standard) Did you have a drink containing alcohol in the past year? No Points 0 Interpretation Negative Additional Details Category Social Info Options Details Miscellaneous: Marital status: Occupation: retired Section Notes: Nonsmoker; no alcohol Nonsmoker; no alcohol Nonsmoker; no alcohol Nonsmoker; no alcohol Nonsmoker; no alcohol Nonsmoker; no alcohol Nonsmoker; no alcohol Nonsmoker; no alcohol Nonsmoker; no alcohol Problems Problem Type SNOMED Code ICD Code Onset Dates Problem Status W/U Status Risk Notes Problem Screening for malignant neoplasm of colon (339373688) Encounter for screening for malignant neoplasm of colon (Z12.11) Active confirmed Problem History of adenomatous polyp of colon (734977094) History of adenomatous polyp of colon (Z86.010) Active confirmed Problem Iron deficiency anemia (78557912) Iron deficiency anemia (D50.9) Active confirmed Problem Preprocedural examination (044133893517536) Preprocedural examination (Z01.818) Active confirmed Problem History of polyp of colon (situation) (683755341) History of colon polyps (Z86.010) Active confirmed Problem Anemia (888370875) Anemia (D64.9) Active confirmed Problem Long-term current use of antiplatelet drug (113168786942188) Long-term use of aspirin therapy (Z79.82) Active confirmed Problem Constipation (74155877) Constipation, unspecified constipation type (K59.00) Active confirmed Problem Iron deficiency anemia (98868387) Other iron deficiency anemia (D50.8) Active confirmed Problem Long-term current use of anticoagulant (239283815) Anticoagulant long-term use (Z79.01) Active confirmed Problem Iron deficiency anemia (12796416) Iron deficiency anemia, unspecified iron deficiency anemia type (D50.9) Active confirmed Problem Mucosal abnormality of duodenum (K31.9) Active confirmed Problem Diverticulosis of colon (818254737) Diverticulosis of colon (K57.30) Active confirmed Vital Signs Temperature 97.8 degrees Fahrenheit 04/08/2025 Blood pressure diastolic 01 mm Hg 04/08/2025 Height 70 in 04/08/2025 Blood pressure systolic 001 mm Hg 04/08/2025 Weight 226.4 lbs 04/08/2025 BMI 32.48 kg/m2 04/08/2025 Encounters Encounter Location Date Provider Diagnosis [facility] [address] [place] [address] 04/08/2025 Isma Yepez Anemia D64.9 Assessments Encounter [...] basis. I did advise him and his wxgahsig-mo-mni to certainly call if he has any [...] IBC (FE) 08/08/2023 IRON + IBC (FE) 04/08/2025 IRON + IBC (FE) 10/04/2021 VITAMIN B12 AND FOLATE 08/08/2023 VITAMIN B12 AND FOLATE 10/04/2021 CBC w DIFF 10/04/2021 CBC w DIFF 04/08/2025 CBC w DIFF 08/08/2023 CBC w DIFF 04/12/2022 CELIAC PANEL #10 08/08/2023 CELIAC PANEL #10 09/17/2021 Ferritin 10/04/2021 Ferritin 04/08/2025 Vitamin B12 and Folate 04/08/2025 Future Test Test Name Order Date COLONOSCOPY 08/27/2013 COLONOSCOPY 03/21/2017 COLONOSCOPY 04/07/2020 UPPER GI ENDOSCOPY 08/06/2021 COLONOSCOPY 08/06/2021 Insurance Providers Payer Name Payer Address Payer Phone Subscriber Number Group Number Insured Name Patient Relationship to Insured Coverage Start Date Coverage End Date [facility] [address] [address] [place] [address] [id number] ALIREZA ROWAN Self - patient is the insured Medical (General) History Medical History History ICD Code Colonoscopy 07-20-2007 and 2003- tubular adenomas removed Hyperlipidemia NIDDM Hypertension Denies NV,CVA,Lung disease,renal disease BPH Colonoscopy in 04/2013 with [...] right carotid artery. Surgical History Surgery Date(Month/Year) Left knee replacement in 08/2012 Deviated septum Hospitalization History Reason Date(Month/Year)
--- OUTSIDE RECORDS SUMMARY | 2025-06-10 20:04 | XMS_ITS | Patient Health Record ---
Author Organization [facility] Address [address] [place] [address] Care Team Providers Care Sewing Machine Operator Name Role Phone John PENNY, Latoya Negrete Primary Care Provider Un available Black, Francine Unavailable [phone] Allergies Allergen (clinical drug ingredient) Drug/Non Drug [...] Polyneuropathy due to type 2 diabetes mellitus (428514384) Type 2 diabetes mellitus with diabetic polyneuropathy (E11.42) Active confirmed Vital Signs Blood pressure diastolic 76 mm Hg 01/09/2025 Height 5 ft 10 in in 01/09/2025 Blood pressure systolic 120 mm Hg 01/09/2025 Weight 228 lbs 01/09/2025 BMI 32.71 kg/m2 01/09/2025 Procedures Procedure Date Ordered Date Performed Result Body Sit e 45479-XXTILFW NAIL, 6 OR MORE 09/09/2024 N/A 56448-Gmpemnlp Plate 09/09/2024 N/A 87348-WDGZ SKIN LESIONS, OVER 4 09/09/2024 N/A 09614-Cssowpmc Plate 10/09/2024 N/A 46538-MYBTRSU NAIL, 6 OR MORE 12/16/2024 N/A 23394-Lxomzltg Plate 12/16/2024 N/A 63080-OSCF SKIN LESIONS, OVER 4 12/16/2024 N/A 91581-Fhmdmbeg Plate 01/09/2025 N/A 25288-Ydiwhxch Plate Each Additional 01/09/2025 N/A Encounters Encounter Location Date Provider Diagnosis [address] [address] 09/09/2024 Francine Black Type 2 diabetes mellitus with diabetic polyneuropathy E11.42 ; Other hammer toe(s) (acquired), right foot M20.41 ; Tinea unguium B35.1 ; Ingrown nail L60.0 ; Edema, lower extremity R60.0 and Other hammer toe(s) (acquired), left foot M20.[address] [address] 10/09/2024 Francine Black Ingrown nail L60.0 a nd Type 2 diabetes mellitus with diabetic polyneuropathy E11.[address] [address] 12/16/2024 Francine Black Type 2 diabetes mellitus with diabetic polyneuropathy E11.42 ; Edema, lower extremity R60.0 ; Ingrown nail L60.0 and Tinea unguium B35.[address] [address] 01/09/2025 Francine Black Ingrown nail L60.0 a nd Type 2 diabetes mellitus with diabetic polyneuropathy E11.[address] [address] 10/08/2024 Francine Black [address] [address] 01/08/2025 Francine Black [address] [address] 03/20/2025 Francine Black Assessments Encounter Date Diagnosis (ICD Code) Assessment Notes Treatment Notes Treatment Clinical Notes Section Notes 09/09/2024 Other hammer toe(s) (acquired), right foot [...] R60.0) 01/09/2025 Ingrown nail (ICD-10 - L60.0) 01/09/2025 Type 2 diabetes mellitus with diabetic polyneuropathy (ICD-10 - E11.42) 12/16/2024 Ingrown nail (ICD-10 - L60.0) 09/09/2024 Tinea unguium (ICD-10 - B35.1) 12/16/2024 Tinea unguium (ICD-10 - B35.1) 09/09/2024 Ingrown nail (ICD-10 - L60.0) 09/09/2024 Edema, lower extremity (ICD-10 - R60.0) 09/09/2024 Other hammer toe(s) (acquired), left foot (ICD-10 - M20.42) Plan Of Treatment Pending Test Test Name Order Date Microalbumin, 24 hr Urine 06/23/2015 62643-ACKZBEC NAIL, 6 OR MORE 12/16/2024 15534-UDSEQCF NAIL, 6 OR MORE 02/02/2023 74568-GWNQCQO NAIL, 6 OR MORE 05/11/2023 54547-RMGXCDH NAIL, 6 OR MORE 08/10/2023 22006-FYLEYLA NAIL, 6 OR MORE 11/13/2023 17772-MHZYGVX NAIL, 6 OR MORE 02/26/2024 44962-GNYDCMP NAIL, 6 OR MORE 06/03/2024 00762-BTDXOKP NAIL, 6 OR MORE 09/09/2024 23911-SMUOTXN NAIL, 6 OR MORE 05/05/2011 72633-ENXVBUJ NAIL, 6 OR MORE 09/19/2011 87834-FUYZVLC NAIL, 6 OR MORE 11/03/2011 39224-OLRLUFP NAIL, 6 OR MORE 12/05/2011 18957-ZARMRVK NAIL, 6 OR MORE 11/27/2012 81048-GZWIZTB NAIL, 6 OR MORE 07/29/2013 14610-JGYLACW NAIL, 6 OR MORE 01/27/2014 00392-RUADCYL NAIL, 6 OR MORE 09/04/2015 31530-TCVNSMT NAIL, 6 OR MORE 12/02/2015 20575-DBZZBKM NAIL, 6 OR MORE 02/08/2016 97107-KBDQAQP NAIL, 6 OR MORE 04/25/2016 86618-QNTYKIZ NAIL, 6 OR MORE 07/11/2016 16510-WACUBMG NAIL, 6 OR MORE 09/08/2016 89627-OYFGPSQ NAIL, 6 OR MORE 11/17/2016 68285-VNALNPD NAIL, 6 OR MORE 02/02/2017 42234-DIKRYNT NAIL, 6 OR MORE 04/11/2017 39406-YMQVYJM NAIL, 6 OR MORE 07/05/2017 47590-PBIIPLX NAIL, 6 OR MORE 09/14/2017 85969-JADZPRG NAIL, 6 OR MORE 11/20/2017 30618-JKJUCUC NAIL, 6 OR MORE 01/29/2018 36472-TGWWBQA NAIL, 6 OR MORE 06/12/2018 77890-RNNLHLD NAIL, 6 OR MORE 08/27/2018 53140-PSNSYIS NAIL, 6 OR MORE 11/05/2018 95400-FLXUAAI NAIL, 6 OR MORE 03/05/2019 63172-KDAYJFH NAIL, 6 OR MORE 05/13/2019 33057-IARJXIY NAIL, 6 OR MORE 08/05/2019 58051-GOVFKXX NAIL, 6 OR MORE 10/28/2019 18880-RFYVUZG NAIL, 6 OR MORE 03/26/2020 56110-SAQAXZL NAIL, 6 OR MORE 12/23/2019 66193-ZDYXOSQ NAIL, 6 OR MORE 06/11/2020 03719-VNFGGST NAIL, 6 OR MORE 08/20/2020 68649-NTYYQXX NAIL, 6 OR MORE 10/22/2020 04092-JXSLQGX NAIL, 6 OR MORE 12/31/2020 82964-ALOAYWT NAIL, 6 OR MORE 04/19/2021 77627-SJXQHWV NAIL, 6 OR MORE 07/15/2021 56015-UZCMTCR NAIL, 6 OR MORE 10/04/2021 75136-PEQGFCF NAIL, 6 OR MORE 02/08/2022 17577-PFAEPNV NAIL, 6 OR MORE 04/25/2022 88240-RWFGYAF NAIL, 6 OR MORE 08/01/2022 37909-HKXKJTD NAIL, 6 OR MORE 11/03/2022 53181-KISJVLZ NAIL, 1-5 04/03/2015 03193-TJPIMVY NAIL, 1-5 06/16/2015 77119-DWDTKCA NAIL, 1-5 07/28/2014 50113-BTSUSCQ NAIL, 1-5 04/30/2012 94848-SVJPHVE NAIL, 1-5 11/27/2014 34067-VCEFJNA NAIL, 1-5 01/26/2015 09963-Kspr Destruction, 1-14 04/25/2022 99967-Qgyp Destruction, 1-14 08/01/2022 41774-Ltle Destruction, 1-14 11/03/2022 94341-Kigiwayi Plate 09/09/2024 30356-Glqxaudi Plate 10/09/2024 82730-Fbthjdsm Plate 02/26/2024 52935-Pitlynqm Plate 11/13/2023 79364-Jtumrlio Plate 12/16/2024 16823-Sxqrsxde Plate 01/09/2025 10996-Dofxtpum Plate 11/03/2022 09135-Rotqlkss Plate 02/02/2023 81073-Smcqgntu Plate 02/08/2022 04024-Bsjrqmno Plate 10/04/2021 23857-Lnvhbitt Plate 10/28/2019 87499-Afwnzfgh Plate 04/19/2021 54362-Hpfstclj Plate 12/31/2020 94861-Almzuxmq Plate 01/16/2020 61458-Dgrmugfb Plate 01/23/2020 75927-Vxwbwelv Plate 03/05/2019 13987-Fbjgezuu Plate 05/13/2019 09905-Wkykiskg Plate 08/27/2018 37207-Msnkfxgb Plate 01/29/2018 18427-Vxckyvne Plate 06/12/2018 89942-Zdpsxttm Plate 01/26/2015 55114-Troxqorb Plate 04/03/2015 07836-Zwpnwtsx Plate 01/27/2014 38455-Ndidzelz Plate 03/13/2014 93155-Mvaqgtin Plate 07/29/2013 37091-Ypckzskx Plate 11/27/2012 46619-Yyqaeqbh Plate 03/09/2012 67289-Ebmsboxm Plate 04/30/2012 39490-Ivsewiso Plate 12/05/2011 17698-Civiynke Plate 02/23/2012 60460-Coesjnqm Plate 11/03/2011 99077-Oolfymvu Plate 09/19/2011 60140-Kyyqtege Plate 05/05/2011 10452-Vnymwhbu Plate 06/06/2011 99703-Zxiffvgu Plate 07/28/2014 46982-Jaqyojld Plate 11/27/2014 81050-Jovpcabi Plate 07/11/2016 39845-Kkqitlbl Plate 04/25/2016 88915-Qgjzqufa Plate 09/14/2017 33468-Emanhlre Plate 04/11/2017 46636-Nzwxqdop Plate 02/08/2016 82442-Ozaokidl Plate 11/17/2016 54581-Ojenworf Plate 09/08/2016 52683-Rmqtdhjh Plate Each Additional 61901-Qxceenex Plate Each Additional 09/2011 76211-Xapdihbr Plate Each Additional 23486-Eiolqcdn Plate Each Additional 01/2012 19954-Ukgdyfoe Plate Each Additional 56880-Hbtlwaep Plate Each Additional 70333-Thpdsknl Plate Each Additional 77144-Rudgleys Plate Each Additional 07/2020 26243-Fyeixzhf Plate Each Additional 03/2022 85247-Sbbtkqnq Plate Each Additional 04/2025 18555-VRL 01/11/2012 30162- Debride <25 sq cm 01/30/2012 05213- Debride <25 sq cm 02/23/2012 88934- Debride <25 sq cm 04/30/2012 74014- Debride <25 sq cm 04/24/2017 37970- Debride <25 sq cm 01/30/2020 16092- Debride <25 sq cm 02/13/2020 74046- Debride <25 sq cm 02/27/2020 53253- Debride <25 sq cm 01/23/2020 43069- Debride <25 sq cm 03/26/2020 83893- Debride <25 sq cm 04/06/2020 35560-XUKYIPD SKIN/TISSUE 03/09/2012 31466 I&D ABSCESS- SIMPLE,SINGLE 014 61008 I&D ABSCESS- SIMPLE,SINGLE 022 38711-UXJW SKIN LESIONS, OVER 4 10/05/19 22 11659-WESO SKIN LESIONS, OVER 4 08/01/19 23 79969-OQCJ SKIN LESIONS, OVER 4 04/25/20 22 60935-UWPX SKIN LESIONS, OVER 4 02/03/20 23 88175-PSLK SKIN LESIONS, OVER 4 11/04/19 23 60875-BRRL SKIN LESIONS, OVER 4 12/23/19 20 04392-UOFT SKIN LESIONS, OVER 4 10/28/19 20 60218-UJDG SKIN LESIONS, OVER 4 08/27/19 19 93368-VQXZ SKIN LESIONS, OVER 4 06/12/20 18 89413-AUGE SKIN LESIONS, OVER 4 01/30/20 18 65744-VKHX SKIN LESIONS, OVER 4 11/06/19 19 53570-TSFR SKIN LESIONS, OVER 4 03/05/20 19 79132-VJNI SKIN LESIONS, OVER 4 05/13/20 19 84013-UMKM SKIN LESIONS, OVER 4 08/05/19 20 52918-GTJJ SKIN LESIONS, OVER 4 04/03/20 15 97615-IEXO SKIN LESIONS, OVER 4 07/05/19 18 78531-AERO SKIN LESIONS, OVER 4 04/11/20 17 02627-YYIX SKIN LESIONS, OVER 4 11/21/19 18 85853-NWFX SKIN LESIONS, OVER 4 09/15/19 18 04283-IYFT SKIN LESIONS, OVER 4 11/18/19 17 82519-OSXW SKIN LESIONS, OVER 4 09/09/19 17 32426-OHLL SKIN LESIONS, OVER 4 02/03/20 17 34842-GUXQ SKIN LESIONS, OVER 4 04/25/20 16 13957-GUIZ SKIN LESIONS, OVER 4 07/11/19 17 48904-ZPDK SKIN LESIONS, OVER 4 02/08/20 16 29334-ZXTD SKIN LESIONS, OVER 4 12/02/19 16 73438-CERE SKIN LESIONS, OVER 4 09/04/19 16 34656-CXEA SKIN LESIONS, OVER 4 06/16/20 15 95035-KIQE SKIN LESIONS, OVER 4 11/13/19 24 04540-SVYU SKIN LESIONS, OVER 4 02/26/20 24 67496-FYFA SKIN LESIONS, OVER 4 08/10/19 24 12754-IZZK SKIN LESIONS, OVER 4 05/11/20 23 33677-NKMG SKIN LESIONS, OVER 4 12/17/19 25 27806-YQUF SKIN LESIONS, OVER 4 09/10/19 25 38421-LQSY SKIN LESIONS, OVER 4 06/03/20 24 16074-CIWB SKIN LESIONS, 2 TO 4 03/26/20 95695-QZQQ SKIN LESIONS, 2 TO 4 06/11/20 80526-HSAC SKIN LESIONS, 2 TO 4 08/20/19 21 50661-ZQTK SKIN LESIONS, 2 TO 4 02/09/20 18481-DDCN SKIN LESIONS, 2 TO 4 07/15/19 78843-QPUM SKIN LESIONS, 2 TO 4 04/19/20 21 43558-ETYU SKIN LESIONS, 2 TO 4 01/01/20 35464-NWCI SKIN LESIONS, 2 TO 4 10/23/19 Y8370-AZOPBSIG DYSTROPHIC NAILS ANY # Next Appt Details Provider Name:Francine Ibrahim , 2025 01:30:00 PM, [address] [place] [address], [phone], Insurance Providers Payer Name Payer Address Payer Phone Subscriber Number Group Number Insured Name Patient Relationship to Insured Coverage Start Date Coverage End Date [employer] Adv-20924 [address] [address] [place] [address] [id number] Alireza Gabriel Self - patient is the insured 6 Medical (General) History Medical History History ICD Code mumps back, hip, knee pain type II diabetes Hay fever Other hammer toe(s) (acquired), right fo ot M20.41 Other hammer toe(s) (acquired), left jasmin t M20.42 Surgical History Surgery Date(Month/Year) left knee arthroscopy 1995 left knee replacement 08/28/2012
== END 2025-06-10 14:56 | disposition home or self-care (01) ==
LOC: HO.HVS 14:06
PROVIDERS: PCP Internal Medicine; Visit Provider Surgery Vascular Surgery
DX: I83.11 Varicose veins of right lower extremity with inflammation (principal); I65.23 Occlusion and stenosis of bilateral carotid arteries
CPT/HCPCS: 99214

== ENCOUNTER → 2025-06-10 14:05 | Outpatient (BNVA) | payer MEDICARE, SELFPAY | PROVIDERS: PCP Internal Medicine; Visit Provider Surgery Vascular Surgery | DX: I83.11 Varicose veins of right lower extremity with inflammation (principal); I65.23 Occlusion and stenosis of bilateral carotid arteries | CPT/HCPCS: 99212 ==

== ENCOUNTER 2025-06-16 15:29 | Outpatient (AMB) | payer MEDICARE, SELFPAY ==
--- OUTSIDE RECORDS SUMMARY | 2025-03-20 09:45 | XMS_ITS ---
Author Organization [facility] Address [address] [place] [id number] Care Team Providers Care Residential Carpet Installer Name Role Phone John PENNY, Latoya Negrete Primary Care Provider Un available Francine Ibrahim Ciro [phone] Encounters Encounter Location Date Provider Diagnosis [address] [phone] 03/20/2025 Francine Patrice Plan Of Treatment Next Appt Details Provider Name:Francine Ibrahim , 2025 01:30:00 PM, [address] [place] [address], [phone], Progress Notes * Alireza ROWAN MDOB: 4 (79 yo M)Acc No.[id number]:03/20/2025 Progress Note Patient: Alireza DENNISON Provider: Wen Ibrahim DPM :1945 A ge:79 Y S ex:Male Date:03/20/2025 Address:[address] [place] [id number] Pcp:Amol Yepez Subjective: * Chief Complaints: * * Medical History: Objective: * Vitals: Assessment: Plan: * Treatment: * Images: * The named appointment provid er may or may not be the originator of this progress note, and it is not deemed complete until electronically signed by the appointment provider. Sign off status: Pending * Provider: Wen Ibrahim PAPA Date: 0 03/20/2025 Generated for Floyd robertson/Marquis/Lorenzo on: 1 08/17/2024 09:57 PM EST
[2025-06-16 15:37] VITALS: BP 118/62; PULSE 77; O2SAT 100; BMI 27.2
--- NOTE | 2025-06-16 15:37 | HO.NEPHOV_ITS ---
Vital Signs 06/16/25 15:37 Height 5 ft 11 in Weight 195 lb BMI 27.2 BP 118/62 Blood Pressure Location Lt brachial Position Sitting Pulse 77 Pulse Source Pulse Oximeter Pulse Oximetry (%) 100 Oxygen Delivery Method Room Air Intake Visit Reasons: 5 wks f/u Utilization Management Nurse Required: No Accompanied by: Self / Same As Patient Allergies cephalexin (Keflex) Allergy (Intermediate, Verified 06/16/25 15:39) hives levofloxacin Allergy (Intermediate, Verified 06/16/25 15:39) Hives cetirizine (From Zyrtec) Adverse Reaction (Intermediate, Verified 06/16/25 15:39) Fatigue Medication List - Last Reconciled 06/16/25 by Edmond Mahajan MD acetaminophen 500 mg PO Q6H PRN apixaban 5 mg PO BID 30 days aspirin 81 mg PO DAILY blood sugar diagnostic ([employer] Verio test strips) use 1 strip once a day to test blood sugar blood-glucose meter (T[employer] Verio Flex Meter) As directed bumetanide 2 mg See Protocol PO DAILY erythromycin 1 cm ophthalmic (eye) QID PRN Farxiga (dapagliflozin propanediol) 10 mg PO DAILY NS lancets (Accu-Chek Softclix Lancets) use 1 lancet daily to test blood sugar semaglutide (Ozempic) 0.25 mg subcut QWEEK spironolactone 12.5 mg PO DAILY tamsulosin 0.4 mg PO DAILY 90 days trazodone 25 mg PO BEDTIME PRN triamcinolone acetonide 0.1% 1 appl See Protocol topical BID zinc oxide-gauze bandage 12 %- 4 X 10 yard (Unna Boot) As directed HPI Comments Details: History of Present Illness The patient is an 79 year old male presenting for a follow-up visit for his chronic medical conditions, including chronic kidney disease (CKD), congestive heart failure (CHF), and anemia. He was last seen in May and reports feeling well overall. Regarding his CKD, his kidney function has remained stable, functioning at 33%, which is attributed to a combination of his age, heart condition, and diuretic use. He denies any trouble with urination and continues to take spironolactone and Bumex. He reports adherence to a low-salt diet. His anemia has improved, with better hemoglobin levels noted. In relation to his CHF, he denies any breathing difficulties. He experiences occasional swelling in his toes, which is less severe than it used to be. The patient reports a new complaint of itching hands, which has not responded to various creams. He recalls a similar episode 20 years ago that was attributed to an allergic reaction to Keflex and was resolved with a pill. The patient was recently discharged from a rehabilitation facility and is now at home, noting he feels much better since returning home. He saw his primary care physician last week, and no medication changes were made at that time. Results - Labs: Hemoglobin is better. - Kidney function: Stable, with function at 33%. [facility] Medical History (Updated 06/15/25 @ 23:00 by Latoya Lopez MD) Atrial fibrillation Type 2 diabetes mellitus without complication, without long-term current use of insulin JASS (obstructive sleep apnea) Chronic hypercapnic respiratory failure Pleural effusion Acute respiratory failure with hypercapnia Acute exacerbation of congestive heart failure CKD (chronic kidney disease) Congestive heart failure Cardiomyopathy Persistent atrial fibrillation Pulmonary edema Stasis dermatitis of both legs History of congestive heart failure Physical deconditioning Weakness Hypertensive retinopathy Posterior vitreous detachment, left eye Epiphora due to excess lacrimation of right side Senile ectropion of right lower eyelid BPH (benign prostatic hyperplasia) Type 2 diabetes mellitus without complication, with no history of insulin use Normocytic anemia Thrombocytopenia COVID-19 vaccine series completed 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 Social History Household Members: None Housing: House Are you a primary team primary care physician to a significant other at home: No Do you presently have visiting nurse or other home services: Yes (patient has visiting nurse and physical therapy once a week) Patient Tobacco Use Status: Never used Tobacco e-Cigarette/Vaping Use: Never Used Second Hand Smoke Exposure: Yes Advance Directives Date on File: 12/28/23 service: No Current occupational status: retired Cognitive needs: No Hearing needs: No Vision needs: Yes Physical Exam Exam Exam: Physical Exam General: Awake. Comfortable. HENT: Neck supple. Mucosa moist. Pulmonary: Lungs clear. No rales. Cardiology: Heart S1-S2 heard. Normal. Abdomen: Soft. Non tender. Bowel sounds normal. Neurologic: No involuntary movements. No myoclonus. Extremities: Toes sometimes swell. No rash. Vital Signs: Last Vital Signs Pulse 77 06/16/25 15:37 BP 118/62 06/16/25 15:37 Pulse Ox 100 06/16/25 15:37 Oxygen Delivery Method Room Air 06/16/25 15:37 BMI result Body Mass Index 27.2 Results Reviewed Nephrology Results: Hgb, (14.0-18.0) 9.5 g/dl L 06/02/25 WBC, (4.8-10.8) 8.6 X10*3/uL 06/02/25 Plt Count, (160-400) 219 X10*3/uL 06/02/25 Sodium, (135-145) 131 mmol/L L 06/02/25 Potassium, (3.3-5.1) 3.9 mmol/L 06/02/25 Chloride, (96-108) 100 mmol/L 06/02/25 Carbon Dioxide, (22-29) 22 mmol/L 06/02/25 BUN, (9-16) 43 mg/dL H 06/02/25 Creatinine, (0.5-1.4) 1.98 mg/dL H 06/02/25 Calcium, (8.4-10.2) 8.7 mg/dL Δ 06/02/25 Renal US 03/14/25 Assessment & Plan Assessment & Plan (1) CKD (chronic kidney disease): Code(s): N18.9 - Chronic kidney disease, unspecified Category: Medical (2) Chronic kidney disease, stage 3: Code(s): N18.30 - Chronic kidney disease, stage 3 unspecified Category: Medical Plan Plan 1. Chronic Kidney Disease - Kidney function is stable at 33% and has not worsened, which is a positive finding. - The current kidney function level is attributed to age, his heart condition, and diuretic use. - No changes will be made to his current regimen. - The patient is advised to continue his low-salt diet to maintain stable blood pressure and protect his kidneys. - A follow-up appointment is scheduled for three months to continue monitoring. 2. Anemia - The patient's hemoglobin has improved. - Continue to monitor; no changes in management at this time. 3. Congestive Heart Failure/ CArdiomyopathy - The patient is clinically stable with no reports of dyspnea - Continue current medications, including spironolactone and Bumex, for fluid management. Orders: Orders Basic Metabolic Panel 3 Months Edmond Mahajan MD N18.30 - Chronic kidney disease, stage 3 unspecified Complete Blood Count no Diff 3 Months Edmond Mahajan MD N18.30 - Chronic kidney disease, stage 3 unspecified Medications: Changed From erythromycin 1 cm ophthalmic (eye) QID 10 grams 0RF To erythromycin 1 cm ophthalmic (eye) QID PRN Michelle Almeida MD Coding Level of Care Code Est Pt Level 4 (64660) Diagnoses CKD (chronic kidney disease) N18.9 Chronic kidney disease, stage 3 N18.30
--- OUTSIDE RECORDS SUMMARY | 2025-06-16 21:57 | XMS_ITS | Patient Health Record ---
Author Organization [facility] Address [address] [place] [address] Care Team Providers Care Hazmat Cdl A Driver Name Role Phone John PENNY, Latoya Primary Care Provider Isma Vu Unavailable [phone] Allergies Allergen (clinical drug ingredient) Drug/Non Drug [...] Problem Screening for malignant neoplasm of colon (454934821) Encounter for screening for malignant neoplasm of colon (Z12.11) Active confirmed Problem History of adenomatous polyp of colon (477001957) History of adenomatous polyp of colon (Z86.010) Active confirmed Problem Iron deficiency anemia (16572289) Iron deficiency anemia (D50.9) Active confirmed Problem Preprocedural examination (130353306946542) Preprocedural examination (Z01.818) Active confirmed Problem History of polyp of colon (situation) (720575511) History of colon polyps (Z86.010) Active confirmed Problem Anemia (259707986) Anemia (D64.9) Active confirmed Problem Long-term current use of antiplatelet drug (100256763661088) Long-term use of aspirin therapy (Z79.82) Active confirmed Problem Constipation (51812503) Constipation, unspecified constipation type (K59.00) Active confirmed Problem Iron deficiency anemia (07930382) Other iron deficiency anemia (D50.8) Active confirmed Problem Long-term current use of anticoagulant (928792304) Anticoagulant long-term use (Z79.01) Active confirmed Problem Iron deficiency anemia (22172986) Iron deficiency anemia, unspecified iron deficiency anemia type (D50.9) Active confirmed Problem Mucosal abnormality of duodenum (K31.9) Active confirmed Problem Diverticulosis of colon (573095463) Diverticulosis of colon (K57.30) Active confirmed Vital Signs Temperature 97.8 degrees Fahrenheit 04/08/2025 Blood pressure diastolic 01 mm Hg 04/08/2025 Height 70 in 04/08/2025 Blood pressure systolic 001 mm Hg 04/08/2025 Weight 226.4 lbs 04/08/2025 BMI 32.48 kg/m2 04/08/2025 Encounters Encounter Location Date Provider Diagnosis [facility] [address] [place] [address] 04/08/2025 Isma Yepez Anemia D64.9 Assessments Encounter [...] basis. I did advise him and his mfylflnu-on-mdg to certainly call if he has any [...] Insured Coverage Start Date Coverage End Date [facility] [address] [address] [place] [address] [id number] ALIREZA ROWAN Self - patient is the insured Medical (General) History Medical History History ICD Code Colonoscopy 07-20-2007 and 2003- tubular adenomas removed Hyperlipidemia NIDDM Hypertension Denies MN,CVA,Lung disease,renal disease BPH Colonoscopy in 04/2013 with [...]
--- OUTSIDE RECORDS SUMMARY | 2025-06-16 21:57 | XMS_ITS | Patient Health Record ---
Author Organization [facility] Address [address] [place] [address] Care Team Providers Care Sales Training Representative Name Role Phone John PENNY, Latoya Negrete Primary Care Provider Un available Black, Francine Unavailable [phone] Allergies Allergen (clinical drug ingredient) Drug/Non Drug [...] Polyneuropathy due to type 2 diabetes mellitus (624584319) Type 2 diabetes mellitus with diabetic polyneuropathy (E11.42) Active confirmed Vital Signs Blood pressure diastolic 76 mm Hg 01/09/2025 Height 5 ft 10 in in 01/09/2025 Blood pressure systolic 120 mm Hg 01/09/2025 Weight 228 lbs 01/09/2025 BMI 32.71 kg/m2 01/09/2025 Procedures Procedure Date Ordered Date Performed Result Body Sit e 18250-CTYNWHQ NAIL, 6 OR MORE 09/09/2024 N/A 52926-Psgzomue Plate 09/09/2024 N/A 30130-MVGF SKIN LESIONS, OVER 4 09/09/2024 N/A 41592-Rlqbbomv Plate 10/09/2024 N/A 78697-AAGIWOM NAIL, 6 OR MORE 12/16/2024 N/A 66437-Wjwbnugm Plate 12/16/2024 N/A 44760-BFZU SKIN LESIONS, OVER 4 12/16/2024 N/A 65037-Onjvzvtz Plate 01/09/2025 N/A 34341-Yhkkxwsm Plate Each Additional 01/09/2025 N/A Encounters Encounter Location Date Provider Diagnosis [address] [address] 09/09/2024 Francine Black Type 2 diabetes mellitus with diabetic polyneuropathy E11.42 ; Other hammer toe(s) (acquired), right foot M20.41 ; Tinea unguium B35.1 ; Ingrown nail L60.0 ; Edema, lower extremity R60.0 and Other hammer toe(s) (acquired), left foot M20.[address] [address] 10/09/2024 Francine Black Ingrown nail L60.0 a nd Type 2 diabetes mellitus with diabetic polyneuropathy E11.[address] [address] 12/16/2024 Francine Black Type 2 diabetes mellitus with diabetic polyneuropathy E11.42 ; Edema, lower extremity R60.0 ; Ingrown nail L60.0 and Tinea unguium B35.[address] [address] 01/09/2025 Francine Black Ingrown nail L60.0 a nd Type 2 diabetes mellitus with diabetic polyneuropathy E11.[address] [address] 10/08/2024 Francine Black [address] [address] 01/08/2025 Francine Black [address] [address] 03/20/2025 Farncine Black Assessments Encounter Date Diagnosis (ICD Code) [...] Order Date Microalbumin, 24 hr Urine 06/23/2015 53940-RRIYGYU NAIL, 6 OR MORE 12/16/2024 82449-KTQUWHD NAIL, 6 OR MORE 02/02/2023 54598-OHQXMQN NAIL, 6 OR MORE 05/11/2023 22056-GSZRLJO NAIL, 6 OR MORE 08/10/2023 70378-AUOYMMP NAIL, 6 OR MORE 11/13/2023 80900-LPOJLJH NAIL, 6 OR MORE 02/26/2024 80870-TQHVUAD NAIL, 6 OR MORE 06/03/2024 70690-GHRMXJV NAIL, 6 OR MORE 09/09/2024 57421-NDDRAFV NAIL, 6 OR MORE 05/05/2011 80787-VWTELLO NAIL, 6 OR MORE 09/19/2011 99864-RFHYXQU NAIL, 6 OR MORE 11/03/2011 60826-AWYDQPW NAIL, 6 OR MORE 12/05/2011 71909-VKGTKLN NAIL, 6 OR MORE 11/27/2012 96879-HOAYOLU NAIL, 6 OR MORE 07/29/2013 92305-LOCPORG NAIL, 6 OR MORE 01/27/2014 32260-YDFNGUL NAIL, 6 OR MORE 09/04/2015 94505-KAGULSJ NAIL, 6 OR MORE 12/02/2015 88139-DVNSBLB NAIL, 6 OR MORE 02/08/2016 85549-ALIUFHQ NAIL, 6 OR MORE 04/25/2016 65473-YCVSNJQ NAIL, 6 OR MORE 07/11/2016 75994-SOXZJLN NAIL, 6 OR MORE 09/08/2016 12688-EWPQXKU NAIL, 6 OR MORE 11/17/2016 04058-TZHAEQQ NAIL, 6 OR MORE 02/02/2017 99905-HWGQMLU NAIL, 6 OR MORE 04/11/2017 10633-JKRQSUV NAIL, 6 OR MORE 07/05/2017 21598-BHXYUAH NAIL, 6 OR MORE 09/14/2017 77558-DIPHASX NAIL, 6 OR MORE 11/20/2017 36029-NYNBVDG NAIL, 6 OR MORE 01/29/2018 00825-VFUPSKA NAIL, 6 OR MORE 06/12/2018 76618-BQWQFMP NAIL, 6 OR MORE 08/27/2018 31857-QKZYXVO NAIL, 6 OR MORE 11/05/2018 10669-DOFEBIS NAIL, 6 OR MORE 03/05/2019 40944-XLUYJUM NAIL, 6 OR MORE 05/13/2019 25901-LLFYQPE NAIL, 6 OR MORE 08/05/2019 64358-WRFEBNT NAIL, 6 OR MORE 10/28/2019 46034-QBILNET NAIL, 6 OR MORE 03/26/2020 12272-LIFOLSI NAIL, 6 OR MORE 12/23/2019 30745-NTYXRCD NAIL, 6 OR MORE 06/11/2020 52803-OMSIYAG NAIL, 6 OR MORE 08/20/2020 86050-QMMYDPG NAIL, 6 OR MORE 10/22/2020 86530-TNJPWMD NAIL, 6 OR MORE 12/31/2020 92452-UWARVKA NAIL, 6 OR MORE 04/19/2021 48094-SPEXOMN NAIL, 6 OR MORE 07/15/2021 37439-KYDNZSF NAIL, 6 OR MORE 10/04/2021 50940-EMLPNSX NAIL, 6 OR MORE 02/08/2022 59937-ENHKXDM NAIL, 6 OR MORE 04/25/2022 07437-UCBHGJO NAIL, 6 OR MORE 08/01/2022 91584-JBFOAQW NAIL, 6 OR MORE 11/03/2022 34197-OUXVUWH NAIL, 1-5 04/03/2015 74989-HJULKMO NAIL, 1-5 06/16/2015 88551-XQYKWYM NAIL, 1-5 07/28/2014 59790-DSIHAJL NAIL, 1-5 04/30/2012 03665-CCZDUUK NAIL, 1-5 11/27/2014 10397-LACCGTE NAIL, 1-5 01/26/2015 53491-Ycqt Destruction, 1-14 04/25/2022 14769-Gtje Destruction, 1-14 08/01/2022 46663-Fgzt Destruction, 1-14 11/03/2022 05068-Npputyly Plate 09/09/2024 60109-Vuzgxyiy Plate 10/09/2024 05387-Jfxcwtqo Plate 02/26/2024 68870-Iyzyogas Plate 11/13/2023 77482-Qrhjhzix Plate 12/16/2024 57865-Dhearzhq Plate 01/09/2025 01002-Friwxrwg Plate 11/03/2022 66581-Myykyhij Plate 02/02/2023 07176-Pggxpnwv Plate 02/08/2022 50631-Feomfpac Plate 10/04/2021 64993-Uccxppue Plate 10/28/2019 98492-Ifqgbrcu Plate 04/19/2021 66944-Bnbqanol Plate 12/31/2020 49728-Oxplmkfn Plate 01/16/2020 94574-Kyongmpa Plate 01/23/2020 39800-Qwdhppse Plate 03/05/2019 07737-Jmimgeyl Plate 05/13/2019 83925-Ygmwzofe Plate 08/27/2018 86788-Wmhrzzor Plate 01/29/2018 24526-Dcoixuqf Plate 06/12/2018 38934-Yisasecx Plate 01/26/2015 19020-Xhqvhzdp Plate 04/03/2015 99979-Janpmywb Plate 01/27/2014 93821-Bbqvhcye Plate 03/13/2014 64823-Iaicxqsr Plate 07/29/2013 20550-Bnyziagz Plate 11/27/2012 62486-Xyzurtni Plate 03/09/2012 67147-Kxuzfovl Plate 04/30/2012 20889-Wlczikjr Plate 12/05/2011 12385-Seclixqq Plate 02/23/2012 09079-Mzydpqmm Plate 11/03/2011 43552-Butgksaa Plate 09/19/2011 17394-Gwiebpyh Plate 05/05/2011 40752-Pfkxkydr Plate 06/06/2011 53207-Xuruaaky Plate 07/28/2014 98165-Iputjiik Plate 11/27/2014 66271-Licmbaun Plate 07/11/2016 57908-Ecdylexl Plate 04/25/2016 64457-Frhuxlcq Plate 09/14/2017 88484-Ncqahexf Plate 04/11/2017 95563-Shujoens Plate 02/08/2016 07157-Npieugul Plate 11/17/2016 74400-Bgemgaxb Plate 09/08/2016 83779-Gwinfslv Plate Each Additional 84331-Xfeyqeiz Plate Each Additional 09/2011 84568-Bzossjyc Plate Each Additional 10757-Snepvxpj Plate Each Additional 01/2012 72215-Witzrlix Plate Each Additional 73908-Prpswmrx Plate Each Additional 41078-Kpxkgchg Plate Each Additional 13660-Zhgkrmkf Plate Each Additional 07/2020 33024-Cqhrvixr Plate Each Additional 03/2022 52517-Jalodrnz Plate Each Additional 04/2025 52595-WZM 01/11/2012 81704- Debride <25 sq cm 01/30/2012 90642- Debride <25 sq cm 02/23/2012 38742- Debride <25 sq cm 04/30/2012 73075- Debride <25 sq cm 04/24/2017 27360- Debride <25 sq cm 01/30/2020 57363- Debride <25 sq cm 02/13/2020 74023- Debride <25 sq cm 02/27/2020 85434- Debride <25 sq cm 01/23/2020 71923- Debride <25 sq cm 03/26/2020 93569- Debride <25 sq cm 04/06/2020 00966-IEEZBHC SKIN/TISSUE 03/09/2012 58204 I&D ABSCESS- SIMPLE,SINGLE 014 11446 I&D ABSCESS- SIMPLE,SINGLE 022 71342-XCVF SKIN LESIONS, OVER 4 10/05/19 22 31471-MMXD SKIN LESIONS, OVER 4 08/01/19 23 03177-WSHU SKIN LESIONS, OVER 4 04/25/20 22 59939-MLBW SKIN LESIONS, OVER 4 02/03/20 23 02899-IYPW SKIN LESIONS, OVER 4 11/04/19 23 58647-FRCV SKIN LESIONS, OVER 4 12/23/19 20 19685-MIOS SKIN LESIONS, OVER 4 10/28/19 20 73003-ETTD SKIN LESIONS, OVER 4 08/27/19 19 44571-AJRB SKIN LESIONS, OVER 4 06/12/20 18 69744-EGXB SKIN LESIONS, OVER 4 01/30/20 18 17916-RRAX SKIN LESIONS, OVER 4 11/06/19 19 47942-XBSZ SKIN LESIONS, OVER 4 03/05/20 19 35171-FUNW SKIN LESIONS, OVER 4 05/13/20 19 99462-NWBL SKIN LESIONS, OVER 4 08/05/19 20 33593-KHJQ SKIN LESIONS, OVER 4 04/03/20 15 24618-QARI SKIN LESIONS, OVER 4 07/05/19 18 38750-OGWZ SKIN LESIONS, OVER 4 04/11/20 17 73001-IRIS SKIN LESIONS, OVER 4 11/21/19 18 54716-SQWJ SKIN LESIONS, OVER 4 09/15/19 18 10220-ZEVO SKIN LESIONS, OVER 4 11/18/19 17 48581-NUIZ SKIN LESIONS, OVER 4 09/09/19 17 83685-OCHL SKIN LESIONS, OVER 4 02/03/20 17 18890-PFVP SKIN LESIONS, OVER 4 04/25/20 16 93851-LBEP SKIN LESIONS, OVER 4 07/11/19 17 21860-PGOE SKIN LESIONS, OVER 4 02/08/20 16 43375-YTUX SKIN LESIONS, OVER 4 12/02/19 16 42923-TKIM SKIN LESIONS, OVER 4 09/04/19 16 37393-ODTX SKIN LESIONS, OVER 4 06/16/20 15 56358-KDNO SKIN LESIONS, OVER 4 11/13/19 24 58501-GMHM SKIN LESIONS, OVER 4 02/26/20 24 21324-TMUS SKIN LESIONS, OVER 4 08/10/19 24 49974-RLJD SKIN LESIONS, OVER 4 05/11/20 23 37174-MGOP SKIN LESIONS, OVER 4 12/17/19 25 98550-JEAV SKIN LESIONS, OVER 4 09/10/19 25 12182-FCCD SKIN LESIONS, OVER 4 06/03/20 24 01332-OQAX SKIN LESIONS, 2 TO 4 03/26/20 99138-HVKG SKIN LESIONS, 2 TO 4 06/11/20 56307-XTKJ SKIN LESIONS, 2 TO 4 08/20/19 21 39621-CPDR SKIN LESIONS, 2 TO 4 02/09/20 22264-FEMW SKIN LESIONS, 2 TO 4 07/15/19 51254-MNPY SKIN LESIONS, 2 TO 4 04/19/20 21 99346-RGCE SKIN LESIONS, 2 TO 4 01/01/20 39820-YHBE SKIN LESIONS, 2 TO 4 10/23/19 M2969-YLWJIKYT DYSTROPHIC NAILS ANY # Next Appt Details Provider Name:Francine Ibrahim , 2025 01:30:00 PM, [address] [place] [address], [phone], Insurance Providers Payer Name Payer Address Payer Phone Subscriber Number Group Number Insured Name Patient Relationship to Insured Coverage Start Date Coverage End Date [employer] Medicare Adv-[id number] [address] [address] [place] [address] [phone] [id number] Alireza Gabriel Self - patient is the insured 6 Medical (General) History Medical History History ICD Code mumps back, hip, knee pain type II diabetes Hay fever Other hammer toe(s) (acquired), right fo ot M20.41 Other hammer toe(s) (acquired), left jasmin t M20.42 Surgical History Surgery Date(Month/Year) left knee arthroscopy 1995 left knee replacement 08/28/2012
== END 2025-06-16 15:53 | disposition home or self-care (01) ==
LOC: HO.HKA 15:30
PROVIDERS: PCP Internal Medicine; Visit Provider Internal Medicine Hypertension Specialist
DX: N18.9 Chronic kidney disease, unspecified (principal); N18.30 Chronic kidney disease, stage 3 unspecified
CPT/HCPCS: 99214

== ENCOUNTER → 2025-06-16 15:29 | Outpatient (BNVA) | payer MEDICARE, SELFPAY | PROVIDERS: PCP Internal Medicine; Visit Provider Internal Medicine Hypertension Specialist | DX: N18.30 Chronic kidney disease, stage 3 unspecified (principal); D64.9 Anemia, unspecified; I50.20 Unspecified systolic (congestive) heart failure | CPT/HCPCS: 99212 ==

== ENCOUNTER → 2025-06-23 08:07 | Outpatient (REF) | payer MEDICARE, SELFPAY ==
--- OUTSIDE RECORDS SUMMARY | 2025-03-20 09:45 | XMS_ITS ---
Author Organization [facility] Address [address] [place] [phone] Care Team Providers Care Commodity Merchant Name Role Phone John PENNY, Latoya Negrete Primary Care Provider Un available Francine Ibrahim Ciro [phone] Encounters Encounter Location Date Provider Diagnosis [address] [address] 03/20/2025 Francine Patrice Plan Of Treatment Next Appt Details Provider Name:Francine Ibrahim , 2025 01:30:00 PM, [address] [place] [address], [phone], Progress Notes * Alireza ROWAN MDOB: 4 (79 yo M)Acc No.[id number]:03/20/2025 Progress Note Patient: Alireza DENNISON Provider: Wen Ibrahim DPM :1945 A ge:79 Y S ex:Male Date:03/20/2025 Address:[address] [place] [phone] Pcp:Amol Yepez Subjective: * Chief Complaints: * [...] 03/20/2025 Generated for Floyd robertson/Marquis/Lorenzo on: 1 08/24/2024 08:13 AM EST
--- NOTE | ~2025-06-23 | NM_ITS ---
Lexiscan Myocardial perfusion study Indication: Diastolic heart failure to evaluate for myocardial ischemia Technique: The patient was brought in for a Lexiscan perfusion study on 06/23/2025 and was injected 0.4 mg of Lexiscan intravenously. Within a minute of this injection 30 mCi of sestamibi was given intravenously. Images were obtained using the SPECT gamma camera interlaced with the gating device. Images were obtained in supine position. Resting perfusion study was performed on 06/24/2025. Patient was administered 30 mCi of sestamibi intravenously at rest. Images were then obtained in supine position. Images were processed with the software and compared side to side in short axis, horizontal long axis and vertical long axis views. Images obtained without without CT attenuation. Total DLP 96 mGy-cm. Findings: The stress perfusion study showed nonattenuated images show moderate the large area of mildly to moderately reduced uptake in the inferolateral as well as mid and inferoapical wall of the LV myocardium. Remainder of the other myocardium is normally perfused attenuated corrected images show mildly reduced uptake in the anterior wall with mildly reduced uptake in the inferolateral and lateral wall of the LV myocardium. The gated study shows low normal LV systolic function with calculated LVEF of 53%. LV cavity is mildly dilated in size. The gated study shows normal wall thickening and contraction of segments. Resting study shows both attenuated as well as nonattenuated corrected images show improved uptake in the lateral and inferolateral wall of the LV myocardium. Gating at rest was not performed. The findings are consistent with mild intensity reversible defect of inferolateral as well as lateral wall suggestive of ischemia.. NM/NM cardiolite stress test Impression: 1. Myocardial perfusion imaging study shows mild intensity lateral and inferolateral ischemia in the circumflex territory 2. Gated LVEF is 53% with stress 3. Transient ischemic dilatation not present but LV cavity is dilated Nondiagnostic changes on EKG. Electronically signed by: Aquilino Ventura MD 06/24/2025 05:06 PM [facility]
--- OUTSIDE RECORDS SUMMARY | 2025-06-23 08:13 | XMS_ITS | Patient Health Record ---
Author Organization [facility] Address [address] [place] [address] Care Team Providers Care Spring Repairer Helper Hand Name Role Phone John PENNY, Latoya Primary Care Provider Isma Vu Unavailable [phone] Allergies Allergen (clinical drug ingredient) Drug/Non Drug [...] Problem Screening for malignant neoplasm of colon (866060281) Encounter for screening for malignant neoplasm of colon (Z12.11) Active confirmed Problem History of adenomatous polyp of colon (941404941) History of adenomatous polyp of colon (Z86.010) Active confirmed Problem Iron deficiency anemia (59442065) Iron deficiency anemia (D50.9) Active confirmed Problem Preprocedural examination (464866207853982) Preprocedural examination (Z01.818) Active confirmed Problem History of polyp of colon (situation) (199130644) History of colon polyps (Z86.010) Active confirmed Problem Anemia (803230079) Anemia (D64.9) Active confirmed Problem Long-term current use of antiplatelet drug (801940603534473) Long-term use of aspirin therapy (Z79.82) Active confirmed Problem Constipation (93932097) Constipation, unspecified constipation type (K59.00) Active confirmed Problem Iron deficiency anemia (53499973) Other iron deficiency anemia (D50.8) Active confirmed Problem Long-term current use of anticoagulant (163916133) Anticoagulant long-term use (Z79.01) Active confirmed Problem Iron deficiency anemia (88459219) Iron deficiency anemia, unspecified iron deficiency anemia type (D50.9) Active confirmed Problem Mucosal abnormality of duodenum (K31.9) Active confirmed Problem Diverticulosis of colon (167763779) Diverticulosis of colon (K57.30) Active confirmed Vital Signs Temperature 97.8 degrees Fahrenheit 04/08/2025 Blood pressure diastolic 01 mm Hg 04/08/2025 Height 70 in 04/08/2025 Blood pressure systolic 001 mm Hg 04/08/2025 Weight 226.4 lbs 04/08/2025 BMI 32.48 kg/m2 04/08/2025 Encounters Encounter Location Date Provider Diagnosis [facility] [address] [place] [address] 04/08/2025 Isma Yepez Anemia D64.9 Assessments Encounter [...] basis. I did advise him and his ictwcljn-eh-hnt to certainly call if he has any [...] Insured Coverage Start Date Coverage End Date [facility] [address] [address] [place] [address] [id number] ALIREZA ORWAN Self - patient is the insured Medical [...]
--- OUTSIDE RECORDS SUMMARY | 2025-06-23 08:13 | XMS_ITS | Patient Health Record ---
Author Organization [facility] Address [address] [place] [address] Care Team Providers Care Environmental Field Technician Name Role Phone John PENNY, Latoya Negrete Primary Care Provider Un available Black, Francine Unavailable [phone] Allergies Allergen (clinical drug ingredient) Drug/Non Drug [...] Polyneuropathy due to type 2 diabetes mellitus (531657807) Type 2 diabetes mellitus with diabetic polyneuropathy (E11.42) Active confirmed Vital Signs Blood pressure diastolic 76 mm Hg 01/09/2025 Height 5 ft 10 in in 01/09/2025 Blood pressure systolic 120 mm Hg 01/09/2025 Weight 228 lbs 01/09/2025 BMI 32.71 kg/m2 01/09/2025 Procedures Procedure Date Ordered Date Performed Result Body Sit e 15731-PBSBQIR NAIL, 6 OR MORE 09/09/2024 N/A 78257-Ixzqkaxp Plate 09/09/2024 N/A 82823-BWSG SKIN LESIONS, OVER 4 09/09/2024 N/A 83909-Kvczslnu Plate 10/09/2024 N/A 32763-JVDUTBL NAIL, 6 OR MORE 12/16/2024 N/A 82534-Fagfuqmg Plate 12/16/2024 N/A 90056-MWMF SKIN LESIONS, OVER 4 12/16/2024 N/A 62858-Vavmqfxh Plate 01/09/2025 N/A 05043-Cljkbagw Plate Each Additional 01/09/2025 N/A Encounters Encounter Location Date Provider Diagnosis [address] [address] 09/09/2024 Francine Black Type 2 diabetes mellitus with diabetic polyneuropathy E11.42 ; Other hammer toe(s) (acquired), right foot M20.41 ; Tinea unguium B35.1 ; Ingrown nail L60.0 ; Edema, lower extremity R60.0 and Other hammer toe(s) (acquired), left foot M20.[address] [address] 10/09/2024 Francine Black Ingrown nail L60.0 a nd Type 2 diabetes mellitus with diabetic polyneuropathy E11.[address] [address] 12/16/2024 Francine Black Type 2 diabetes mellitus with diabetic polyneuropathy E11.42 ; Edema, lower extremity R60.0 ; Ingrown nail L60.0 and Tinea unguium B35.[address] [address] 01/09/2025 Francine Black Ingrown nail L60.0 a nd Type 2 diabetes mellitus with diabetic polyneuropathy E11.[address] [address] 10/08/2024 Francine Black [address] [address] 01/08/2025 Francine Black [address] [address] 03/20/2025 Francine Black Assessments Encounter Date Diagnosis [...] Order Date Microalbumin, 24 hr Urine 06/23/2015 25607-GBTZHWY NAIL, 6 OR MORE 12/16/2024 22761-XDHNCUU NAIL, 6 OR MORE 02/02/2023 14895-VADPWAV NAIL, 6 OR MORE 05/11/2023 31315-BOYGXEI NAIL, 6 OR MORE 08/10/2023 82925-QAHWGVV NAIL, 6 OR MORE 11/13/2023 32394-AMKYPAB NAIL, 6 OR MORE 02/26/2024 95331-ECSAHUH NAIL, 6 OR MORE 06/03/2024 77758-FREHJNV NAIL, 6 OR MORE 09/09/2024 81710-LULXWRH NAIL, 6 OR MORE 05/05/2011 99859-WHAVUAG NAIL, 6 OR MORE 09/19/2011 60407-ASQEVDB NAIL, 6 OR MORE 11/03/2011 29806-AAYCUWK NAIL, 6 OR MORE 12/05/2011 74138-DJYELGK NAIL, 6 OR MORE 11/27/2012 70057-IJPLQLL NAIL, 6 OR MORE 07/29/2013 18241-OKVPBCF NAIL, 6 OR MORE 01/27/2014 37568-WXOEWPF NAIL, 6 OR MORE 09/04/2015 73181-TVEYLBH NAIL, 6 OR MORE 12/02/2015 85825-LLQIAXO NAIL, 6 OR MORE 02/08/2016 31109-CNCVOPW NAIL, 6 OR MORE 04/25/2016 34875-AQZRCUV NAIL, 6 OR MORE 07/11/2016 57864-BHVEILI NAIL, 6 OR MORE 09/08/2016 00707-BCPMBCH NAIL, 6 OR MORE 11/17/2016 09147-KKNTMKU NAIL, 6 OR MORE 02/02/2017 76760-CCXMSRZ NAIL, 6 OR MORE 04/11/2017 87734-VTXRFJI NAIL, 6 OR MORE 07/05/2017 70193-GXJYCBN NAIL, 6 OR MORE 09/14/2017 16929-LAFRRUT NAIL, 6 OR MORE 11/20/2017 76195-SDHKFMF NAIL, 6 OR MORE 01/29/2018 98694-QCJLSFQ NAIL, 6 OR MORE 06/12/2018 82602-KHMSQEI NAIL, 6 OR MORE 08/27/2018 19706-FUSWNMM NAIL, 6 OR MORE 11/05/2018 59361-ONWWZNG NAIL, 6 OR MORE 03/05/2019 08817-GKKAAYF NAIL, 6 OR MORE 05/13/2019 89021-GQZBAKG NAIL, 6 OR MORE 08/05/2019 51092-EZRRGHF NAIL, 6 OR MORE 10/28/2019 18821-YLKRAKH NAIL, 6 OR MORE 03/26/2020 85119-GOVFGNP NAIL, 6 OR MORE 12/23/2019 31841-SIMJVOT NAIL, 6 OR MORE 06/11/2020 94150-SMONVDD NAIL, 6 OR MORE 08/20/2020 10462-ILSGBSG NAIL, 6 OR MORE 10/22/2020 12573-CFADDNZ NAIL, 6 OR MORE 12/31/2020 76442-JIUSXJS NAIL, 6 OR MORE 04/19/2021 61554-YAXKPPS NAIL, 6 OR MORE 07/15/2021 73030-IFBGXGD NAIL, 6 OR MORE 10/04/2021 40330-YSLDHOC NAIL, 6 OR MORE 02/08/2022 84886-PPNLPJE NAIL, 6 OR MORE 04/25/2022 44304-VJZUSKR NAIL, 6 OR MORE 08/01/2022 37367-MIXGLQH NAIL, 6 OR MORE 11/03/2022 21036-GSSPROI NAIL, 1-5 04/03/2015 93093-RYQLVXL NAIL, 1-5 06/16/2015 32534-QANKRJG NAIL, 1-5 07/28/2014 75110-HQUXKWQ NAIL, 1-5 04/30/2012 51910-FKNOGXN NAIL, 1-5 11/27/2014 70205-FFGMSBL NAIL, 1-5 01/26/2015 00133-Fuxm Destruction, 1-14 04/25/2022 53866-Roni Destruction, 1-14 08/01/2022 37082-Knex Destruction, 1-14 11/03/2022 27724-Wneiqqbe Plate 09/09/2024 52466-Gicqvyko Plate 10/09/2024 43481-Uvmpjwyk Plate 02/26/2024 93496-Eictxwwi Plate 11/13/2023 64687-Xcwlcvpl Plate 12/16/2024 25482-Bitvjmds Plate 01/09/2025 74260-Jxfbfxak Plate 11/03/2022 38642-Binfvdpl Plate 02/02/2023 29577-Wvdqzpdc Plate 02/08/2022 47378-Qbufvoui Plate 10/04/2021 66421-Pdpwchfh Plate 10/28/2019 70860-Rvdbtymt Plate 04/19/2021 94622-Hgrjyiuj Plate 12/31/2020 07597-Uzwsqhez Plate 01/16/2020 06492-Fdtwvkyn Plate 01/23/2020 46887-Naihkyya Plate 03/05/2019 37873-Mqahroun Plate 05/13/2019 13565-Cgxoubqz Plate 08/27/2018 52170-Zalwfmzx Plate 01/29/2018 39348-Pdooijlz Plate 06/12/2018 33020-Wencgsuk Plate 01/26/2015 27744-Pakfympy Plate 04/03/2015 17687-Tbhzsruk Plate 01/27/2014 78562-Byisbgwk Plate 03/13/2014 96805-Hfyrorkm Plate 07/29/2013 18956-Kpnafajw Plate 11/27/2012 75610-Hgpvoivl Plate 03/09/2012 19718-Uildqhrx Plate 04/30/2012 62629-Pprhmppq Plate 12/05/2011 55846-Nxekpjux Plate 02/23/2012 65945-Wulrhmuk Plate 11/03/2011 23830-Gmnowbuy Plate 09/19/2011 96307-Maysolqc Plate 05/05/2011 18556-Ykfyzzbo Plate 06/06/2011 52400-Jhcoxunl Plate 07/28/2014 15672-Cpwimtte Plate 11/27/2014 33179-Bzjiybnr Plate 07/11/2016 77473-Qtqtqjje Plate 04/25/2016 81351-Qhzvpdqd Plate 09/14/2017 53437-Rzxsqhgq Plate 04/11/2017 12815-Sfhgscie Plate 02/08/2016 46553-Htqnanxx Plate 11/17/2016 05134-Ydcxbzvw Plate 09/08/2016 61055-Cspqvbsc Plate Each Additional 13947-Triidlzq Plate Each Additional 09/2011 07000-Tazfncjt Plate Each Additional 44834-Jdvmjihi Plate Each Additional 01/2012 76814-Akqzfrzy Plate Each Additional 93066-Jnwvarip Plate Each Additional 67961-Lkmtkucl Plate Each Additional 76744-Ffbomnlh Plate Each Additional 07/2020 07758-Eokryssi Plate Each Additional 03/2022 56329-Tggigbux Plate Each Additional 04/2025 97792-XPK 01/11/2012 40978- Debride <25 sq cm 01/30/2012 31811- Debride <25 sq cm 02/23/2012 32445- Debride <25 sq cm 04/30/2012 81946- Debride <25 sq cm 04/24/2017 53159- Debride <25 sq cm 01/30/2020 49260- Debride <25 sq cm 02/13/2020 40981- Debride <25 sq cm 02/27/2020 92255- Debride <25 sq cm 01/23/2020 41235- Debride <25 sq cm 03/26/2020 58222- Debride <25 sq cm 04/06/2020 45835-BGZOTZW SKIN/TISSUE 03/09/2012 79437 I&D ABSCESS- SIMPLE,SINGLE 014 48169 I&D ABSCESS- SIMPLE,SINGLE 022 95912-IXRC SKIN LESIONS, OVER 4 10/05/19 22 86865-HGTG SKIN LESIONS, OVER 4 08/01/19 23 22024-SZTN SKIN LESIONS, OVER 4 04/25/20 22 97788-YXZU SKIN LESIONS, OVER 4 02/03/20 23 03871-UANT SKIN LESIONS, OVER 4 11/04/19 23 69715-DRIZ SKIN LESIONS, OVER 4 12/23/19 20 03009-TFOW SKIN LESIONS, OVER 4 10/28/19 20 70856-DRNQ SKIN LESIONS, OVER 4 08/27/19 19 71042-CYFU SKIN LESIONS, OVER 4 06/12/20 18 85537-UXLD SKIN LESIONS, OVER 4 01/30/20 18 23610-MHKR SKIN LESIONS, OVER 4 11/06/19 19 50795-PULG SKIN LESIONS, OVER 4 03/05/20 19 45326-NLFC SKIN LESIONS, OVER 4 05/13/20 19 22282-TMXS SKIN LESIONS, OVER 4 08/05/19 20 71198-ILUC SKIN LESIONS, OVER 4 04/03/20 15 65546-DUIC SKIN LESIONS, OVER 4 07/05/19 18 47528-SGFZ SKIN LESIONS, OVER 4 04/11/20 17 92293-ICAH SKIN LESIONS, OVER 4 11/21/19 18 64072-ENWD SKIN LESIONS, OVER 4 09/15/19 18 16352-PUAA SKIN LESIONS, OVER 4 11/18/19 17 25717-OBAY SKIN LESIONS, OVER 4 09/09/19 17 96507-EHYG SKIN LESIONS, OVER 4 02/03/20 17 12911-OIFK SKIN LESIONS, OVER 4 04/25/20 16 62700-VSJI SKIN LESIONS, OVER 4 07/11/19 17 70947-KBWT SKIN LESIONS, OVER 4 02/08/20 16 21551-HRNP SKIN LESIONS, OVER 4 12/02/19 16 94852-ZEMF SKIN LESIONS, OVER 4 09/04/19 16 26555-XZBE SKIN LESIONS, OVER 4 06/16/20 15 96309-UQXK SKIN LESIONS, OVER 4 11/13/19 24 76292-OCKY SKIN LESIONS, OVER 4 02/26/20 24 68655-RREW SKIN LESIONS, OVER 4 08/10/19 24 97093-HVVX SKIN LESIONS, OVER 4 05/11/20 23 33421-RABE SKIN LESIONS, OVER 4 12/17/19 25 57020-TQLY SKIN LESIONS, OVER 4 09/10/19 25 57516-GJTD SKIN LESIONS, OVER 4 06/03/20 24 68423-FJXS SKIN LESIONS, 2 TO 4 03/26/20 57513-EJFR SKIN LESIONS, 2 TO 4 06/11/20 47432-ISDC SKIN LESIONS, 2 TO 4 08/20/19 21 99362-IIHO SKIN LESIONS, 2 TO 4 02/09/20 67700-WVZB SKIN LESIONS, 2 TO 4 07/15/19 22582-GIIP SKIN LESIONS, 2 TO 4 04/19/20 21 69759-RKIO SKIN LESIONS, 2 TO 4 01/01/20 94537-ZEUF SKIN LESIONS, 2 TO 4 10/23/19 C6899-WSZETSYB DYSTROPHIC NAILS ANY # Next Appt Details Provider Name:Francine Ibrahim , 2025 01:30:00 PM, [address] [place] [address], [phone], Insurance Providers Payer Name Payer Address Payer Phone Subscriber Number Group Number Insured Name Patient Relationship to Insured Coverage Start Date Coverage End Date [employer] Medicare Adv-[id number] [address] [address] [place] [address] [id number] Alireza Gabriel Self - patient is the insured 6 Medical (General) History Medical History History ICD Code mumps back, hip, knee pain type II diabetes Hay fever Other hammer toe(s) (acquired), right fo ot M20.41 Other hammer toe(s) (acquired), left jasmin t M20.42 Surgical History Surgery Date(Month/Year) left knee arthroscopy 1995 left knee replacement 08/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
--- NOTE | 2025-06-23 08:59 | CA_ITS ---
Acquisition Time: 2025-06-23 09:02:41 Total Exercise Time: 00:02:00 Test Indications: AFIB,HF Medications: SEE H&P Protocol: LEXISCAN Max HR: 111 BPM 79% of Pred: 139 BPM Max BP: 120/64 mmHG Max Work Load: 1.0 METS Pharmacological stress test with Lexiscan, with reports of dizziness, with isolated PVCs, with hypotensive response to injection- 84/48. Nondiagnostic for ischemia. In recovery, pt treated with IVP Aminophylline 75 mg to reverse Lexiscan after which pt feeling back to baseline. BP improved to baseline- 112/60. Nuclear images pending. Test reviewed with Dr. Ventura. Referred By: Delano Keller Electronically Signed By: Quincy Perez
== END ==
LOC: HO.CARD 08:07
PROVIDERS: PCP Internal Medicine; Visit Provider Internal Medicine
DX: I50.32 Chronic diastolic (congestive) heart failure (principal); I48.91 Unspecified atrial fibrillation
CPT/HCPCS: 78452; 93017; A9500; J0280; J2785

== ENCOUNTER → 2025-06-23 08:59 | Outpatient (BNV) | payer MEDICARE, SELFPAY | PROVIDERS: PCP Internal Medicine | DX: I21.19 ST elevation (STEMI) myocardial infarction involving other coronary artery of inferior wall (principal) | CPT/HCPCS: 78452; 93016; 93018 ==

== ENCOUNTER 2025-06-30 08:22 | Outpatient (AMB) | payer MEDICARE, SELFPAY ==
--- OUTSIDE RECORDS SUMMARY | 2025-03-20 09:45 | XMS_ITS ---
Author Organization [facility] Address [address] [place] [phone] Care Team Providers Care Wind Farm Support Specialist Name Role Phone John PENNY, Latoya Negrete Primary Care Provider Un available Francine Ibrahim Ciro [phone] Encounters Encounter Location Date Provider Diagnosis [address] [address] 03/20/2025 Francine Patrice Plan Of Treatment Next Appt Details Provider Name:Francine Ibrahim , 2025 01:30:00 PM, [address] [place] [address], [phone], Progress Notes * Alireza ROWAN MDOB: 4 (79 yo M)Acc No.[id number]:03/20/2025 Progress Note Patient: Alireza DENNISON Provider: Wen Ibrahim DPM :1945 A ge:79 Y S ex:Male Date:03/20/2025 Address:[address] [place] [phone] Pcp:Amol Yepez Subjective: * Chief Complaints: * [...] 03/20/2025 Generated for Floyd robertson/Marquis/Lorenzo on: 1 08:25 AM EST
--- OUTSIDE RECORDS SUMMARY | 2025-06-30 08:26 | XMS_ITS | Patient Health Record ---
Author Organization [facility] Address [address] [place] [address] Care Team Providers Care Green Promotions Specialist Name Role Phone John PENNY, Latoya Primary Care Provider Isma Vu Unavailable [phone] Allergies Allergen (clinical drug ingredient) Drug/Non Drug [...] Problem Screening for malignant neoplasm of colon (429781648) Encounter for screening for malignant neoplasm of colon (Z12.11) Active confirmed Problem History of adenomatous polyp of colon (483419414) History of adenomatous polyp of colon (Z86.010) Active confirmed Problem Iron deficiency anemia (13098381) Iron deficiency anemia (D50.9) Active confirmed Problem Preprocedural examination (154766045782394) Preprocedural examination (Z01.818) Active confirmed Problem History of polyp of colon (situation) (515219867) History of colon polyps (Z86.010) Active confirmed Problem Anemia (297176011) Anemia (D64.9) Active confirmed Problem Long-term current use of antiplatelet drug (934812685920970) Long-term use of aspirin therapy (Z79.82) Active confirmed Problem Constipation (30555591) Constipation, unspecified constipation type (K59.00) Active confirmed Problem Iron deficiency anemia (61586698) Other iron deficiency anemia (D50.8) Active confirmed Problem Long-term current use of anticoagulant (680684748) Anticoagulant long-term use (Z79.01) Active confirmed Problem Iron deficiency anemia (15314294) Iron deficiency anemia, unspecified iron deficiency anemia type (D50.9) Active confirmed Problem Mucosal abnormality of duodenum (K31.9) Active confirmed Problem Diverticulosis of colon (518078421) Diverticulosis of colon (K57.30) Active confirmed Vital Signs Temperature 97.8 degrees Fahrenheit 04/08/2025 Blood pressure diastolic 01 mm Hg 04/08/2025 Height 70 in 04/08/2025 Blood pressure systolic 001 mm Hg 04/08/2025 Weight 226.4 lbs 04/08/2025 BMI 32.48 kg/m2 04/08/2025 Encounters Encounter Location Date Provider Diagnosis [facility] [address] [place] [address] 04/08/2025 Isma Yepez Anemia D64.9 Assessments Encounter [...] basis. I did advise him and his [id number] to certainly call if he has any [...] Insured Coverage Start Date Coverage End Date [facility] [address] [address] [place] [address] [id number] ALIREZA ROWAN Self - patient is the insured Medical (General) History Medical History History ICD Code Colonoscopy 07-20-2007 and 2003- tubular adenomas removed Hyperlipidemia NIDDM Hypertension Denies LA,CVA,Lung [...]
--- OUTSIDE RECORDS SUMMARY | 2025-06-30 08:26 | XMS_ITS | Patient Health Record ---
Author Organization [facility] Address [address] [place] [address] Care Team Providers Care Electronic Technician Name Role Phone John PENNY, Latoya Negrete Primary Care Provider Un available Black, Francine Unavailable [phone] Allergies Allergen (clinical drug ingredient) Drug/Non Drug [...] Polyneuropathy due to type 2 diabetes mellitus (549821229) Type 2 diabetes mellitus with diabetic polyneuropathy (E11.42) Active confirmed Vital Signs Blood pressure diastolic 76 mm Hg 01/09/2025 Height 5 ft 10 in in 01/09/2025 Blood pressure systolic 120 mm Hg 01/09/2025 Weight 228 lbs 01/09/2025 BMI 32.71 kg/m2 01/09/2025 Procedures Procedure Date Ordered Date Performed Result Body Sit e 58495-JFXQLHS NAIL, 6 OR MORE 09/09/2024 N/A 47344-Lnykriej Plate 09/09/2024 N/A 35361-MZUI SKIN LESIONS, OVER 4 09/09/2024 N/A 17497-Cihxnvqz Plate 10/09/2024 N/A 47233-HIDILVV NAIL, 6 OR MORE 12/16/2024 N/A 96668-Svaoybfm Plate 12/16/2024 N/A 39369-UBDT SKIN LESIONS, OVER 4 12/16/2024 N/A 85823-Ruxeacza Plate 01/09/2025 N/A 88926-Arqtbpoo Plate Each Additional 01/09/2025 N/A Encounters Encounter Location Date Provider Diagnosis [address] [address] 09/09/2024 Francine Black Type 2 diabetes mellitus with diabetic polyneuropathy E11.42 ; Other hammer toe(s) (acquired), right foot M20.41 ; Tinea unguium B35.1 ; Ingrown nail L60.0 ; Edema, lower extremity R60.0 and Other hammer toe(s) (acquired), left foot M20.[address] [address] 10/09/2024 Francine Black Ingrown nail L60.0 a nd Type 2 diabetes mellitus with diabetic polyneuropathy E11.[address] [address] 12/16/2024 Francine Black Type 2 diabetes mellitus with diabetic polyneuropathy E11.42 ; Edema, lower extremity R60.0 ; Ingrown nail L60.0 and Tinea unguium B35.[address] [address] 01/09/2025 Francine Black Ingrown nail L60.0 a nd Type 2 diabetes mellitus with diabetic polyneuropathy E11.[address] [address] 10/08/2024 Francine Black [address] [address] 01/08/2025 Francine Black [address] [address] 03/20/2025 Francine Black Assessments Encounter Date Diagnosis [...] Order Date Microalbumin, 24 hr Urine 06/23/2015 07316-KVAJXHZ NAIL, 6 OR MORE 12/16/2024 56100-ETFUXEV NAIL, 6 OR MORE 02/02/2023 52098-FFQHVAP NAIL, 6 OR MORE 05/11/2023 07811-PFIOJWD NAIL, 6 OR MORE 08/10/2023 46721-SWYMOQL NAIL, 6 OR MORE 11/13/2023 21743-RFXGFMG NAIL, 6 OR MORE 02/26/2024 12791-MYJBYPP NAIL, 6 OR MORE 06/03/2024 09520-ISTMZDU NAIL, 6 OR MORE 09/09/2024 93949-YQBMGAH NAIL, 6 OR MORE 05/05/2011 07646-FGSCTTE NAIL, 6 OR MORE 09/19/2011 19536-RJNYUYC NAIL, 6 OR MORE 11/03/2011 89303-EIGIFOA NAIL, 6 OR MORE 12/05/2011 74308-IBDGTMX NAIL, 6 OR MORE 11/27/2012 05450-JNNCCUT NAIL, 6 OR MORE 07/29/2013 67930-FMIRKHQ NAIL, 6 OR MORE 01/27/2014 18713-SZCJHKQ NAIL, 6 OR MORE 09/04/2015 46775-CVIXCQP NAIL, 6 OR MORE 12/02/2015 79707-AWZJSCS NAIL, 6 OR MORE 02/08/2016 11124-QWJSIQI NAIL, 6 OR MORE 04/25/2016 59885-ZVFNSYF NAIL, 6 OR MORE 07/11/2016 04091-XLQMRXX NAIL, 6 OR MORE 09/08/2016 00300-YHOGXHZ NAIL, 6 OR MORE 11/17/2016 06396-WNELFNJ NAIL, 6 OR MORE 02/02/2017 12973-FTRJSZB NAIL, 6 OR MORE 04/11/2017 13563-KQKMVXC NAIL, 6 OR MORE 07/05/2017 74308-KSXWKHI NAIL, 6 OR MORE 09/14/2017 15024-NIKSMVK NAIL, 6 OR MORE 11/20/2017 38222-RJQDYOS NAIL, 6 OR MORE 01/29/2018 34054-BIMSBXK NAIL, 6 OR MORE 06/12/2018 60905-FHUIDWU NAIL, 6 OR MORE 08/27/2018 46990-VZDJHHM NAIL, 6 OR MORE 11/05/2018 01097-GZKHFGP NAIL, 6 OR MORE 03/05/2019 74449-UNPAGPJ NAIL, 6 OR MORE 05/13/2019 36446-ZLJWBIR NAIL, 6 OR MORE 08/05/2019 00092-XKLFVXI NAIL, 6 OR MORE 10/28/2019 19173-VEWLGTV NAIL, 6 OR MORE 03/26/2020 89244-OLDQLUX NAIL, 6 OR MORE 12/23/2019 40350-MSIFSDD NAIL, 6 OR MORE 06/11/2020 05259-UAFXXQP NAIL, 6 OR MORE 08/20/2020 70348-FRTCXZG NAIL, 6 OR MORE 10/22/2020 11624-NGKUEIL NAIL, 6 OR MORE 12/31/2020 89026-FXPBRQG NAIL, 6 OR MORE 04/19/2021 43487-IWKRRQG NAIL, 6 OR MORE 07/15/2021 21926-AJCIXEN NAIL, 6 OR MORE 10/04/2021 55046-FDFGVVM NAIL, 6 OR MORE 02/08/2022 76398-XMUAEWB NAIL, 6 OR MORE 04/25/2022 11344-FIJUIKN NAIL, 6 OR MORE 08/01/2022 11693-DMIRIRI NAIL, 6 OR MORE 11/03/2022 03932-NQPCRVE NAIL, 1-5 04/03/2015 15202-KTKQZIO NAIL, 1-5 06/16/2015 75332-RZSADWJ NAIL, 1-5 07/28/2014 46108-YQYVEZV NAIL, 1-5 04/30/2012 69321-YCUDDML NAIL, 1-5 11/27/2014 09741-JAHVZUZ NAIL, 1-5 01/26/2015 98992-Mfrp Destruction, 1-14 04/25/2022 58517-Kqwx Destruction, 1-14 08/01/2022 46815-Womp Destruction, 1-14 11/03/2022 07629-Pxqrpdyy Plate 09/09/2024 21756-Jmfctbrd Plate 10/09/2024 99373-Chzbfgee Plate 02/26/2024 09303-Aaglrbjp Plate 11/13/2023 78774-Nhxatehp Plate 12/16/2024 76437-Ngnjxzcr Plate 01/09/2025 19002-Lsncodpl Plate 11/03/2022 80388-Rqzdbkvh Plate 02/02/2023 80333-Ntpqyapc Plate 02/08/2022 37538-Ruoorjcr Plate 10/04/2021 00652-Weslgksg Plate 10/28/2019 47024-Lexizjzy Plate 04/19/2021 98277-Ciqvjqaa Plate 12/31/2020 75065-Xhlgcudl Plate 01/16/2020 48895-Pljineiu Plate 01/23/2020 70265-Jehrhhrb Plate 03/05/2019 12207-Irmnfxjy Plate 05/13/2019 25473-Higbgnhb Plate 08/27/2018 37075-Myluhohr Plate 01/29/2018 36578-Tqingzux Plate 06/12/2018 81126-Kulhiivu Plate 01/26/2015 13488-Qvmnbmjq Plate 04/03/2015 17060-Bnpwdfoq Plate 01/27/2014 98985-Bwlpzfcl Plate 03/13/2014 32488-Jbsxwtzm Plate 07/29/2013 37679-Vhrgbizz Plate 11/27/2012 21163-Wemxtezw Plate 03/09/2012 51608-Pdcutviz Plate 04/30/2012 77919-Myfskskz Plate 12/05/2011 52955-Frghccdo Plate 02/23/2012 35207-Bndyfuua Plate 11/03/2011 46497-Jcxmwcsh Plate 09/19/2011 96134-Iarotlxz Plate 05/05/2011 67882-Aptmdglk Plate 06/06/2011 09073-Frnzymxx Plate 07/28/2014 84785-Mrysmalf Plate 11/27/2014 28030-Oqagwrjb Plate 07/11/2016 81088-Syxdlddi Plate 04/25/2016 90117-Ikoosgeu Plate 09/14/2017 35252-Odcibjyb Plate 04/11/2017 13601-Joewibtt Plate 02/08/2016 21613-Btnqqdek Plate 11/17/2016 93452-Tmccfelj Plate 09/08/2016 84978-Ssvcwkzi Plate Each Additional 14578-Flilztrk Plate Each Additional 09/2011 35789-Pugtbzgx Plate Each Additional 47476-Vbnslgyk Plate Each Additional 01/2012 47730-Tqlhgjog Plate Each Additional 63208-Fkxwdtrw Plate Each Additional 22989-Sfwqnyvd Plate Each Additional 99940-Eyvqzpun Plate Each Additional 07/2020 51296-Rlbcuihf Plate Each Additional 03/2022 93324-Bdirnnpf Plate Each Additional 04/2025 05015-AMG 01/11/2012 49617- Debride <25 sq cm 01/30/2012 57758- Debride <25 sq cm 02/23/2012 23446- Debride <25 sq cm 04/30/2012 97755- Debride <25 sq cm 04/24/2017 43530- Debride <25 sq cm 01/30/2020 28412- Debride <25 sq cm 02/13/2020 67405- Debride <25 sq cm 02/27/2020 96523- Debride <25 sq cm 01/23/2020 08157- Debride <25 sq cm 03/26/2020 43563- Debride <25 sq cm 04/06/2020 73449-SVPOOLC SKIN/TISSUE 03/09/2012 39115 I&D ABSCESS- SIMPLE,SINGLE 014 69023 I&D ABSCESS- SIMPLE,SINGLE 022 08654-CWSB SKIN LESIONS, OVER 4 10/05/19 22 37066-UQNO SKIN LESIONS, OVER 4 08/01/19 23 39732-WDZP SKIN LESIONS, OVER 4 04/25/20 22 15214-MVGT SKIN LESIONS, OVER 4 02/03/20 23 85673-TACO SKIN LESIONS, OVER 4 11/04/19 23 14330-FDRH SKIN LESIONS, OVER 4 12/23/19 20 65972-WDFU SKIN LESIONS, OVER 4 10/28/19 20 11334-BZZT SKIN LESIONS, OVER 4 08/27/19 19 01306-SVWV SKIN LESIONS, OVER 4 06/12/20 18 57379-DASR SKIN LESIONS, OVER 4 01/30/20 18 51301-SAOA SKIN LESIONS, OVER 4 11/06/19 19 79296-QQGC SKIN LESIONS, OVER 4 03/05/20 19 09179-HLFW SKIN LESIONS, OVER 4 05/13/20 19 03403-SDKI SKIN LESIONS, OVER 4 08/05/19 20 31282-SIVW SKIN LESIONS, OVER 4 04/03/20 15 60271-HHVA SKIN LESIONS, OVER 4 07/05/19 18 06557-DVTI SKIN LESIONS, OVER 4 04/11/20 17 24688-NESW SKIN LESIONS, OVER 4 11/21/19 18 12346-INMY SKIN LESIONS, OVER 4 09/15/19 18 28847-ANRW SKIN LESIONS, OVER 4 11/18/19 17 59415-CDZP SKIN LESIONS, OVER 4 09/09/19 17 75847-MNYW SKIN LESIONS, OVER 4 02/03/20 17 27985-BNIJ SKIN LESIONS, OVER 4 04/25/20 16 77850-MLUQ SKIN LESIONS, OVER 4 07/11/19 17 75810-DLVE SKIN LESIONS, OVER 4 02/08/20 16 92308-UUHK SKIN LESIONS, OVER 4 12/02/19 16 25022-BFTJ SKIN LESIONS, OVER 4 09/04/19 16 08017-KNWF SKIN LESIONS, OVER 4 06/16/20 15 86145-YKBS SKIN LESIONS, OVER 4 11/13/19 24 20128-YAEF SKIN LESIONS, OVER 4 02/26/20 24 78115-XEHG SKIN LESIONS, OVER 4 08/10/19 24 36644-FLVA SKIN LESIONS, OVER 4 05/11/20 23 10913-LSEA SKIN LESIONS, OVER 4 12/17/19 25 41436-BKLZ SKIN LESIONS, OVER 4 09/10/19 25 62027-QRRQ SKIN LESIONS, OVER 4 06/03/20 24 84001-DWJD SKIN LESIONS, 2 TO 4 03/26/20 83294-WTTU SKIN LESIONS, 2 TO 4 06/11/20 62365-YFDO SKIN LESIONS, 2 TO 4 08/20/19 21 35802-JRGQ SKIN LESIONS, 2 TO 4 02/09/20 22306-KIBD SKIN LESIONS, 2 TO 4 07/15/19 47934-UFWX SKIN LESIONS, 2 TO 4 04/19/20 21 55892-RJGH SKIN LESIONS, 2 TO 4 01/01/20 44229-UOEZ SKIN LESIONS, 2 TO 4 10/23/19 G4669-HVGLDVVE DYSTROPHIC NAILS ANY # Next Appt Details Provider Name:Francine Ibrahim , 2025 01:30:00 PM, [address] [place] [address], [phone], Insurance Providers Payer Name Payer Address Payer Phone Subscriber Number Group Number Insured Name Patient Relationship to Insured Coverage Start Date Coverage End Date [employer] Medicare Adv-[id number] [address] [address] [place] [address] [phone] [id number] Alireza Gabriel Self - patient is the insured 6 Medical (General) History Medical History History ICD Code mumps back, hip, knee pain type II diabetes Hay fever Other hammer toe(s) (acquired), right fo ot M20.41 Other hammer toe(s) (acquired), left jasmin t M20.42 Surgical History Surgery Date(Month/Year) left knee arthroscopy 1995 left knee replacement 08/28/2012
[2025-06-30 08:41] VITALS: BP 120/60; PULSE 107; O2SAT 98; BMI 27.1
--- NOTE | 2025-06-30 08:41 | AM.OFFWIN_ITS ---
Intake Vital Signs 06/30/25 08:41 Height 5 ft 11 in Weight 194 lb BMI 27.1 BP 120/60 Blood Pressure Location Rt brachial Position Sitting Pulse 107 H Pulse Source Pulse Oximeter Pulse Oximetry (%) 98 Oxygen Delivery Method Room Air Intake Visit Reasons: EP both arms and legs itchy Intake Note: Patient presents c/o bilateral lower arms & legs itchy x2 weeks. Patient Tobacco Use Status: Never used Tobacco Allergies cephalexin (Keflex) Allergy (Intermediate, Verified 06/30/25 08:43) hives levofloxacin Allergy (Intermediate, Verified 06/30/25 08:43) Hives cetirizine (From Zyrtec) Adverse Reaction (Intermediate, Verified 06/30/25 08:43) Fatigue HPI HPI Comments History of Present Illness Details 79-year-old male presents to the walk-in clinic with complaints of generalized pruritus involving bilateral lower arms and legs for approximately 2 weeks. Patient reports persistent itching without clear rash. He states his medications were recently changed about 1 month ago but is unsure which medications were adjusted. He follows with Dermatology at [facility] and has a scheduled appointment on July 31. Denies upper respiratory symptoms. Denies fever, chills, shortness of breath, swelling, or recent illness. No known new soaps, detergents, or topical products reported. [facility] Medical History (Updated 06/30/25 @ 09:18 by Shama Baltazar NP) Generalized pruritus Atrial fibrillation Type 2 diabetes mellitus without complication, without long-term current use of insulin JASS (obstructive sleep apnea) Chronic hypercapnic respiratory failure Pleural effusion Acute respiratory failure with hypercapnia Acute exacerbation of congestive heart failure CKD (chronic kidney disease) Congestive heart failure Cardiomyopathy Persistent atrial fibrillation Pulmonary edema Stasis dermatitis of both legs History of congestive heart failure Physical deconditioning Weakness Hypertensive retinopathy Posterior vitreous detachment, left eye Epiphora due to excess lacrimation of right side Senile ectropion of right lower eyelid BPH (benign prostatic hyperplasia) Type 2 diabetes mellitus without complication, with no history of insulin use Normocytic anemia Thrombocytopenia COVID-19 vaccine series completed 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 Social History Household Members: None Housing: House Are you a primary primary care nurse practitioner to a significant other at home: No Do you presently have visiting nurse or other home services: Yes (patient has visiting nurse and physical therapy once a week) Patient Tobacco Use Status: Never used Tobacco e-Cigarette/Vaping Use: Never Used Second Hand Smoke Exposure: Yes Advance Directives Date on File: 12/28/23 service: No Current occupational status: retired Cognitive needs: No Hearing needs: No Vision needs: Yes Review of Systems Const All systems reviewed & are unremarkable except as noted in HPI and below Physical Exam Vital Signs: Last Vital Signs Pulse 107 H 06/30/25 08:41 BP 120/60 06/30/25 08:41 Pulse Ox 98 06/30/25 08:41 Oxygen Delivery Method Room Air 06/30/25 08:41 BMI result Body Mass Index 27.1 Const General: no acute distress Nutritional Appearance: well nourished Orientation/consciousness: patient oriented x3 Skin Other: Bilateral lower arms and lower legs with dry skin; mild excoriations noted from scratching. No obvious erythema, vesicles, urticaria, drainage, or signs of secondary infection observed. No edema. Skin very Dry. General skin exam: dry skin Neuro General: patient oriented x3, gait normal and moves all extremities Psych Speech and movement: Normal speech and movement present Assessment & Plan Assessment & Plan (1) Generalized pruritus: Code(s): L29.9 - Pruritus, unspecified Plan: Generalized pruritus of bilateral arms and legs ? possible medication-related reaction vs xerosis vs dermatologic condition. Recent medication changes ? unclear etiology, possible contributor to symptoms. Reviewed possible causes of pruritus including medication changes and dry skin Advised patient to moisturize affected areas liberally with fragrance-free emollients (e.g., CeraVe, Eucerin) at least twice daily Recommended avoiding hot showers and using mild, unscented soaps May use OTC oral antihistamine as needed for itching if no contraindications Medications: New hydrocortisone 2.5% 1 appl topical TID PRN 30 grams 2RF skin irritation L29.9 - Pruritus, unspecified prednisone 20 mg PO DAILY 10 tabs 0RF L29.9 - Pruritus, unspecified Discontinued triamcinolone acetonide 0.1% Discontinued Reason: Patient Completed Course 1 appl See Protocol topical BID 80 grams 0RF Coding Level of Care Code Est Pt Level 4 (38231) Diagnoses Generalized pruritus L29.9 Time Spent (min) 20
== END 2025-06-30 09:42 | disposition home or self-care (01) ==
PROVIDERS: PCP Internal Medicine; Visit Provider Nurse Practitioner Family
DX: L29.9 Pruritus, unspecified (principal)

== ENCOUNTER → 2025-06-30 08:22 | Outpatient (BNVA) | payer MEDICARE, SELFPAY | PROVIDERS: PCP Internal Medicine; Visit Provider Nurse Practitioner Family | DX: L29.9 Pruritus, unspecified (principal) | CPT/HCPCS: 99212 ==